=== PATIENT | female | born 1975 | race Caucasian/White ===

== ENCOUNTER 2020-04-30 11:58 | Outpatient (REF) | payer MEDICARE, MEDICAID, SELFPAY ==
[2020-04-30 13:46] LABS: MANUAL DIFF FLAG NO
[2020-04-30 13:57] LABS: Basophils Percent Auto 0.4 % (0-2); Eosinophils Absolute Auto 0.4 X10*3/uL (0.0-0.4); Hematocrit 41.2 % (37-47); Hemoglobin 13.2 g/dl (12.0-16.0); Imm Gran Abs Auto 0.01 X10*3/uL (0.00-0.03); Imm Gran Pct Auto 0.2 % (0.0-0.4); Lymphocytes Absolute Auto 1.7 X10*3/uL (1.2-4.9); Lymphocytes Percent Auto 31.9 % (20-40); Mean Corpuscular Hemoglobin 30.1 pg (27.0-33.0); Mean Corpuscular Volume 93.8 fL (80-98); Mean Platelet Volume 10.4 fL (9.4-12.3); Monocytes Absolute Auto 0.4 X10*3/uL (0.1-1.2); Monocytes Percent Auto 6.8 % (2-11); Neutrophils Absolute Auto 2.8 X10*3/uL (2.0-8.3); Neutrophils Percent Auto 52.7 % (45-73); Platelet Count 185 X10*3/uL (160-400); Red Blood Count 4.39 X10*6/uL (4.20-5.50); Red Cell Distribution Width 13.9 % (11.0-16.0); White Blood Count 5.3 X10*3/uL (4.8-10.8)
[2020-04-30 14:18] LABS: Lithium 0.66 mmol/L (0.60-1.20)
[2020-04-30 14:24] LABS: Alanine Aminotransferase 12 U/L (0-31); Albumin Level 3.9 g/dL (3.5-5.0); Alkaline Phosphatase 40 U/L (39-117); Aspartate Amino Transferase 17 U/L (5-31); Blood Urea Nitrogen 8 mg/dL (9-16); Estimated Glomerular Filt Rate > 60; Glucose Random 60 mg/dL (60-115); Total Protein 6.3 g/dL (6.5-8.0)
[2020-04-30 14:29] LABS: Valproate 29.4 mcg/mL (50.0-100.0)
[2020-04-30 14:39] LABS: Anion Gap 10 (12-20); Bilirubin Total 0.2 mg/dL (0.0-1.0); Calcium 9.6 mg/dL (8.4-10.2); Carbon Dioxide 33 mmol/L (22-29); Chloride 102 mmol/L (96-108); Potassium 4.7 mmol/l (3.3-5.1); Sodium 140 mmol/L (135-145)
== END 2020-04-30 11:59 | disposition home or self-care (01) ==
LOC: HO.LAB 11:58
PROVIDERS: Visit Provider Psychiatry & Neurology Psychiatry
DX: F39 Unspecified mood [affective] disorder (principal)
CPT/HCPCS: 36415; 80053; 80164; 80178; 85025

== ENCOUNTER 2021-04-09 13:34 | Emergency (ER) | payer MEDICARE, SELFPAY ==
--- NOTE | ~2021-04-09 | XR_ITS ---
EXAMINATION: XR CHEST CLINICAL INFORMATION: Cough. Rule out pneumonia. COMPARISON: Previous chest x-ray August 2019 TECHNIQUE: Frontal view of the chest was obtained. FINDINGS: The cardiac and mediastinal contours are normal. The lungs are clear. There is no pleural effusion or pneumothorax. Bony structures are unremarkable. XR/XR chest 1V IMPRESSION: Unremarkable examination.
[2021-04-09 13:39] VITALS: BP 113/58; PULSE 70; RESP 16; TEMP 36.7; O2SAT 97; BMI 23.7
--- NOTE | 2021-04-09 14:33 | ED_ITS ---
HPI - SOB/Dyspnea General Chief Complaint: Dyspnea Stated Complaint: cough, wheezing hx of asthma Time Seen by Provider: 04/09/21 14:18 Source: patient Mode of arrival: ambulatory Limitations: no limitations History of Present Illness HPI Narrative: 46-year-old female with a past medical history of asthma, COPD, tobacco smoking here with complaints of cough, wheezing for 1 week. Patient tells me she has a productive cough with green sputum. She has a history of bronchitis and states this feels similar. She tells me normally antibiotics and prednisone improve her symptoms. [place] did [place] and lost her nebulizer machine is also requesting a refill for this. No fevers, chills, shortness of breath or chest pain Related Data Previous Rx's Medication Instructions Recorded albuterol sulfate 2.5 mg INHALATION QID PRN #75 ml 04/09/21 azithromycin 250 mg tablet See Rx Instructions .ROUTE 04/09/21 .COMPLEX #6 tab nebulizer and compressor (PureAir #1 ea 04/09/21 Mini Nebulizer) prednisone 20 mg tablet 40 mg PO DAILY #10 tab 04/09/21 Allergies Allergy/AdvReac Type Severity Reaction Status Date / Time amoxicillin [AMOXICILLIN] Allergy Intermediate RASH Unverified 03/29/20 19:17 Penicillins [PENICILLINS] Allergy Intermediate RASH Unverified 03/29/20 19:17 Narcotics AdvReac Unknown Uncoded 02/09/20 00:00 Review of Systems Review of Systems: Yes all other systems are reviewed and are negative Constitutional: Constitutional: Reports no additional constitutional complaints, Denies body ache(s), Denies chills, Denies fever(s), Denies headache(s) and Denies weakness Eyes: Eyes: Reports no additional eye complaints and Denies change in vision ENT: Reports system reviewed and no additional complaints, except as documented, Denies dizziness, Denies headache(s), Denies nasal congestion, Denies nasal discharge and Denies neck pain Cardiovascular: Cardiovascular: Reports no additional cardiovascular complaints, Denies chest pain, Denies leg edema and Denies dyspnea Respiratory: Respiratory: Reports no additional respiratory complaints, Reports cough, Denies dyspnea and Reports wheezing Gastrointestinal: Gastrointestinal: Reports no additional gastrointestinal complaints, Denies abdominal pain, Denies diarrhea, Denies nausea and Denies vomiting Genitourinary: Genitourinary: Reports no additional female genitourinary complaints and Denies urinary incontinence Musculoskeletal: Musculoskeletal: Reports no additional musculoskeletal complaints, Denies back pain, Denies arthralgias, Denies joint swelling, Denies neck pain, Denies numbness and Denies tingling Integumentary/Breasts: Skin/Breast: Reports system reviewed and no additional complaints, except as docu and Denies rash Neurologic: Reports system reviewed and no additional complaints, except as documented, Denies Abnormal speech present, Denies dizziness, Denies headache(s), Denies numbness, Denies tingling and Denies weakness Allergic/Immunologic: Allergic/Immunologic: Reports wheezing PMFSH Past Medical History Attestation statement: The following information was validated with the patient. Source: old records reviewed and nursing notes reviewed Medical History Asthma COPD (chronic obstructive pulmonary disease) Social History Social History Advance Directives: No Advance Directives Information Provided: Yes Patient : No Physical Exam Vital Signs: Vital Signs: Last Vital Signs Temp 98.0 F 04/09/21 13:39 Pulse 70 04/09/21 13:39 Resp 16 04/09/21 13:39 BP 113/58 L 04/09/21 13:39 Pulse Ox 97 04/09/21 13:39 Body Mass Index 23.7 Const: General: cooperative, healthy appearing, comfortable and no acute distress Orientation/consciousness: patient oriented x3 Limitations: no limitations HENMT: Head: Yes normal to inspection Ears: hearing grossly normal bilaterally General nose exam: Normal external nose present Face and sinus: Yes normal facial exam Mouth: Normal oral and palatal mucosa present Throat: Yes posterior oropharynx normal Eyes: General: appearance normal, both eyes and all related structures Pupils: Equal, round and reactive pupils present Neck: Neck: Yes normal visual inspection Chest: Chest palpation & inspection: normal inspection of the chest Resp: Other: Mild expiratory wheezing throughout Effort & Inspection: normal respiratory effort Cardio: Rate: regular rate Rhythm: regular rhythm Peripheral pulses: Peripheral pulses 2+ throughout GI: Inspection: Yes normal to inspection Palpation (GI): Soft to palpation and nontender Auscultation: normal bowel sounds Back/Spine/Pelvis: Thoracic/Lumbar Spine: thoracic and lumbar spine normal to inspection Skin: General skin exam: no rashes or lesions noted Neuro: General: patient oriented x3, no focal motor deficits and normal sensation to monofilament Cranial nerves: Yes Equal, round and reactive pupils present Cognition (Neuro): normal cognition Speech: No Abnormal speech present Gait exam (Neuro): Normal gait present Motor exam (neuro): 5/5 motor strength present throughout Extrem: General: Yes normal to inspection Course Course Course Narrative: URI symptoms for 1 week. Feels similar to previous episodes of bronchitis. Chest x-ray shows no evidence of pneumonia. COVID screen negative. Speaking full sentences with stable saturations. Will discharge home with prednisone burst and Z-Mike. Reviewed worrisome signs and symptoms of when to return to the emergency department. Comfortable discharge home. MDM - SOB/Dyspnea Medical Records Attestation: I reviewed the patient's medical records. Lab Data Attestation: I reviewed the patient's lab results. Labs: Lab Results 04/09/21 Range/Units 14:35 COVID-19 ([facility]) Negative (Negative) COVID-19 Clin Com See Note Imaging Data Chest x-ray: Attestation: I personally reviewed and interpreted this imaging study as follows: Radiologist's impression: [address] [address] XRay Report Signed Patient: Ld Mosley MR#: [id number] : 1975 Acct:[id number] Age/Sex: 46 / F ADM Date: 04/09/21 Loc: .ED Attending Dr: Ordering Physician: Bea Garcia NP Date of Service: 04/09/21 Procedure(s): XR chest 1V Accession Number(s): [id number] cc: Bea Garcia NP~ EXAMINATION: XR CHEST CLINICAL INFORMATION: Cough. Rule out pneumonia. COMPARISON: Previous chest x-ray August 2019 TECHNIQUE: Frontal view of the chest was obtained. FINDINGS: The cardiac and mediastinal contours are normal. The lungs are clear. There is no pleural effusion or pneumothorax. Bony structures are unremarkable. XR/XR chest 1V IMPRESSION: Unremarkable examination. ? Discharge Plan Discharge Clinical Impression: Asthma with exacerbation, Bronchitis Patient Disposition: Home, Self-Care Instructions: Asthma (ED), Acute Bronchitis (ED) Additional Instructions: Covid test negative Prescriptions: New prednisone 20 mg tablet 40 mg PO DAILY Qty: 10 RF: 0 albuterol sulfate 2.5 mg /3 mL (0.083 %) solution for nebulization 2.5 mg inhalation QID PRN (Reason: shortness of breath or wheezing) Qty: 75 RF: 0 (DME) nebulizer and compressor [PureAir Mini Nebulizer] Device See Rx Instructions .Route Qty: 1 RF: 0 azithromycin 250 mg tablet See Rx Instructions .ROUTE .COMPLEX Qty: 6 RF: 0 Referrals: Physician,Unknown [Physician] - 2 days
[2021-04-09 14:56] LABS: COVID-19 Test Negative (Negative)
[2021-04-09 15:23] VITALS: PULSE 78; RESP 18; O2SAT 97
== END 2021-04-09 15:24 | disposition home or self-care (01) ==
LOC: HO.ED 14:49
PROVIDERS: Emergency Provider Emergency Medicine; PCP Nurse Practitioner Family
DX: J45.901 Unspecified asthma with (acute) exacerbation (principal); J44.1 Chronic obstructive pulmonary disease with (acute) exacerbation; R06.02 Shortness of breath; R05 Cough; Z79.899 Other long term (current) drug therapy; Z20.822 Contact with and (suspected) exposure to COVID-19
CPT/HCPCS: 36415; 71045; 87635; 99283; 99284

== ENCOUNTER 2021-04-29 14:07 | Outpatient (REF) | payer MEDICARE, SELFPAY ==
[2021-04-29 14:31] LABS: MANUAL DIFF FLAG NO
[2021-04-29 15:06] LABS: Basophils Percent Auto 0.5 % (0-2); Eosinophils Absolute Auto 0.3 X10*3/uL (0.0-0.4); Hematocrit 37.3 % (37-47); Hemoglobin 12.1 g/dl (12.0-16.0); Lymphocytes Absolute Auto 1.1 X10*3/uL (1.2-4.9); Lymphocytes Percent Auto 26.9 % (20-40); Mean Corpuscular HGB Conc 32.4 g/dl (31.0-35.0); Mean Corpuscular Hemoglobin 29.9 pg (27.0-33.0); Mean Corpuscular Volume 92.1 fL (80-98); Mean Platelet Volume 10.5 fL (9.4-12.3); Monocytes Absolute Auto 0.3 X10*3/uL (0.1-1.2); Monocytes Percent Auto 8.2 % (2-11); Neutrophils Absolute Auto 2.4 X10*3/uL (2.0-8.3); Neutrophils Percent Auto 57.4 % (45-73); Platelet Count 183 X10*3/uL (160-400); Red Blood Count 4.05 X10*6/uL (4.20-5.50); Red Cell Distribution Width 15.6 % (11.0-16.0); White Blood Count 4.2 X10*3/uL (4.8-10.8)
[2021-04-29 15:27] LABS: Lithium 0.62 mmol/L (0.60-1.20)
[2021-04-29 15:34] LABS: Alanine Aminotransferase 31 U/L (0-31); Albumin Level 3.8 g/dL (3.5-5.0); Alkaline Phosphatase 46 U/L (39-117); Anion Gap 9 (12-20); Aspartate Amino Transferase 28 U/L (5-31); Bilirubin Total 0.4 mg/dL (0.0-1.0); Blood Urea Nitrogen 15 mg/dL (9-16); Calcium 9.7 mg/dL (8.4-10.2); Carbon Dioxide 30 mmol/L (22-29); Chloride 106 mmol/L (96-108); Estimated Glomerular Filt Rate > 60; Glucose Random 112 mg/dL (60-115); Potassium 4.6 mmol/L (3.3-5.1); Sodium 140 mmol/L (135-145); Total Protein 5.7 g/dL (6.5-8.0)
[2021-04-29 15:42] LABS: Valproate 33.8 mcg/mL (50.0-100.0)
== END 2021-04-29 14:08 | disposition home or self-care (01) ==
LOC: HO.LAB 14:07
PROVIDERS: Visit Provider Psychiatry & Neurology Psychiatry
DX: F39 Unspecified mood [affective] disorder (principal); Z79.899 Other long term (current) drug therapy
CPT/HCPCS: 36415; 80053; 80164; 80178; 85025

== ENCOUNTER 2021-08-05 15:22 | Outpatient (REF) | payer OTHER, SELFPAY ==
[2021-08-05 15:47] LABS: Ammonia 41 umol/L (13-55)
[2021-08-05 16:02] LABS: Alanine Aminotransferase 16 U/L (0-31); Albumin Level 3.6 g/dL (3.5-5.0); Alkaline Phosphatase 46 U/L (39-117); Aspartate Amino Transferase 18 U/L (5-31); Bilirubin Direct 0.2 mg/dL (0.0-0.5); Bilirubin Total 0.5 mg/dL (0.0-1.0)
[2021-08-05 16:12] LABS: Valproate 59.8 mcg/mL (50.0-100.0)
== END 2021-08-05 15:23 | disposition home or self-care (01) ==
LOC: HO.LAB 15:22
PROVIDERS: Visit Provider Psychiatry & Neurology Neurology
DX: G40.909 Epilepsy, unspecified, not intractable, without status epilepticus (principal); G93.41 Metabolic encephalopathy; Z79.899 Other long term (current) drug therapy
CPT/HCPCS: 36415; 80076; 80164; 82140

== ENCOUNTER 2021-08-30 15:20 | Emergency (ER) | payer OTHER, SELFPAY ==
--- NOTE | ~2021-08-30 | XR_ITS ---
EXAMINATION: XR RIBS, BILATERAL CLINICAL INFORMATION: Rib pain COMPARISON: 04/09/2021 TECHNIQUE: 3 views of the bilateral ribs were obtained. FINDINGS: There is a nondisplaced left posterolateral eighth rib fracture. No additional fractures are seen. The lungs are well expanded. No consolidation, edema, or effusion. No pneumothorax. The cardiomediastinal silhouette is normal in size. XR/XR ribs BI min 4V w CXR1V IMPRESSION: Nondisplaced left posterolateral eighth rib fracture.
[2021-08-30 15:48] VITALS: BP 119/63; BP 124/75; PULSE 80; PULSE 85; RESP 17; TEMP 36.6; O2SAT 98; BMI 17.6
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
== END 2021-08-30 17:05 | disposition home or self-care (01) ==
PROVIDERS: Emergency Provider Emergency Medicine
DX: S22.32XA Fracture of one rib, left side, initial encounter for closed fracture (principal); Y04.2XXA Assault by strike against or bumped into by another person, initial encounter; Y93.9 Activity, unspecified; Y92.410 Unspecified street and highway as the place of occurrence of the external cause; Y99.9 Unspecified external cause status
CPT/HCPCS: 71111; 99283

== ENCOUNTER 2021-10-09 10:59 | Outpatient (REF) | payer OTHER, SELFPAY ==
[2021-10-09 11:18] LABS: MANUAL DIFF FLAG NO
[2021-10-09 12:14] LABS: Basophils Percent Auto 0.4 % (0-2); Eosinophils Absolute Auto 0.2 X10*3/uL (0.0-0.4); Eosinophils Percent Auto 2.7 % (0-4); Hematocrit 40.9 % (37.0-47.0); Imm Gran Abs Auto 0.02 X10*3/uL (0.00-0.03); Imm Gran Pct Auto 0.4 % (0.0-0.4); Lymphocytes Absolute Auto 1.4 X10*3/uL (1.2-4.9); Mean Corpuscular HGB Conc 31.8 g/dl (31.0-35.0); Mean Corpuscular Hemoglobin 29.4 pg (27.0-33.0); Mean Corpuscular Volume 92.5 fL (80.0-98.0); Mean Platelet Volume 10.3 fL (9.4-12.3); Monocytes Absolute Auto 0.4 X10*3/uL (0.1-1.2); Monocytes Percent Auto 6.6 % (2-11); Neutrophils Absolute Auto 3.7 x10*3/uL (2.0-8.3); Neutrophils Percent Auto 65.9 % (45-73); Platelet Count 207 X10*3/uL (160-400); Red Blood Count 4.42 X10*6/uL (4.20-5.50); Red Cell Distribution Width 14.2 % (11.0-16.0); White Blood Count 5.6 X10*3/uL (4.8-10.8)
[2021-10-09 12:27] LABS: Estimated Average Glucose 91 mg/dL; Hemoglobin A1c % 4.8 %
[2021-10-09 13:00] LABS: Alanine Aminotransferase 10 U/L (0-31); Alkaline Phosphatase 53 U/L (39-117); Anion Gap 8 (12-20); Aspartate Amino Transferase 14 U/L (5-31); Bilirubin Total 0.3 mg/dL (0.0-1.0); Blood Urea Nitrogen 14 mg/dL (9-16); Calcium 9.9 mg/dL (8.4-10.2); Carbon Dioxide 32 mmol/L (22-29); Chloride 102 mmol/L (96-108); Estimated Glomerular Filt Rate > 60; Glucose Random 69 mg/dL (60-115); Sodium 137 mmol/L (135-145); Total Protein 6.5 g/dL (6.5-8.0)
[2021-10-09 13:21] LABS: Free T4 (Free Thyroxine) 0.81 ng/dL (0.71-1.85); Vitamin D 25-OH Total 29.5 ng/mL (>30)
[2021-10-10 08:52] LABS: Triiodothyronine T3 Free 3.3 pg/mL (2.3-4.2)
== END 2021-10-09 11:00 | disposition home or self-care (01) ==
LOC: HO.LAB 10:59
PROVIDERS: PCP Nurse Practitioner Family; Visit Provider Nurse Practitioner Family
DX: R63.4 Abnormal weight loss (principal); E55.9 Vitamin D deficiency, unspecified
CPT/HCPCS: 36415; 80053; 82306; 83036; 84439; 84443; 84481; 85025

== ENCOUNTER 2022-05-27 04:00 | Emergency (ER) | payer OTHER, SELFPAY ==
--- NOTE | ~2022-05-27 | XR_ITS ---
EXAMINATION: XR CHEST, 2 VIEWS CLINICAL INFORMATION: worried she has broken ribs/collar bone, SOB COMPARISON: 08/30/2021 TECHNIQUE: PA and lateral views of the chest were obtained. FINDINGS: There is a subtle oblique lucency in the right distal clavicle which is new as greater prior and could correspond to a nondisplaced fracture. Clavicles are otherwise unremarkable. No rib fractures are identified on these images. Sternum appears intact. There is mild degenerative disc disease in the thoracic spine. Patchy areas of airspace disease in the left and right lower lobes may correspond to atelectasis, contusion, or pneumonia. Aspiration is also possible. No pleural effusion. No pneumothorax. Cardiac and mediastinal contours are normal. Pulmonary vasculature is unremarkable. XR/XR chest 2V IMPRESSION: 1. Patchy airspace disease in the left and right lower lobes may correspond to atelectasis, contusion, pneumonia, or aspiration. 2. Subtle oblique lucency in the right distal clavicle which may correspond to a nondisplaced fracture. Consider dedicated shoulder radiographs. No rib fractures are identified.
[2022-05-27 04:12] VITALS: BP 110/68; PULSE 78; RESP 19; TEMP 36.6; O2SAT 94; BMI 19.5
[2022-05-27 05:20] VITALS: BP 98/57; PULSE 95; RESP 25; TEMP 36.6; O2SAT 95
--- NOTE | 2022-05-27 05:35 | PC.NURSE ---
Pt made aware that urine sample is needed. Pt stated She is hungry and cannot urinate until she gets food . Pt made aware to at least try. Antione Murrieta made aware
[2022-05-27 06:23] LABS: Influenza A PCR NEGATIVE (Negative); Influenza B PCR NEGATIVE (Negative); Resp Syncy Virus RNA Qual PCR NEGATIVE (Negative); SARS COV2 PCR INHOUSE NEGATIVE (Negative)
--- NOTE | 2022-05-27 06:39 | ED_ITS ---
HPI - URI/Sore Throat General Chief Complaint: Upper Respiratory Symptoms Stated Complaint: covid + Time Seen by Provider: 05/27/22 06:31 History of Present Illness HPI Narrative: Patient is a 47-year-old female presents today with coughing congestion upper respiratory symptoms that is been ongoing for the last 3 weeks. Patient claims she tested positive for COVID 2 weeks ago patient claims she is vaccinated. Positive history of asthma. Never been hospitalized. In addition patient has been snorting cocaine and heroin. She wants help. She denies suicidal homicidal ideations. Related Data Previous Rx's Medication Instructions Recorded albuterol sulfate 2.5 mg/3 mL 2.5 mg (3 mL) inhalation QID PRN 04/09/21 (0.083 %) solution for nebulization shortness of breath or wheezing #75 mL azithromycin 250 mg tablet See Rx Instructions PO .COMPLEX #6 04/09/21 tabs nebulizer and compressor (PureAir #1 ea 04/09/21 Mini Nebulizer) prednisone 20 mg tablet 40 mg PO DAILY #10 tabs 04/09/21 azithromycin 250 mg tablet See Rx Instructions PO .COMPLEX 05/27/22 upper resp infection #6 tabs Allergies Allergy/AdvReac Type Severity Reaction Status Date / Time amoxicillin [AMOXICILLIN] Allergy Intermediate RASH Unverified 03/29/20 19:17 Penicillins [PENICILLINS] Allergy Intermediate RASH Unverified 03/29/20 19:17 Narcotics AdvReac Unknown Uncoded 02/09/20 00:00 Review of Systems Review of Systems: Positive coughing congestion upper respiratory symptoms positive generalized malaise Yes all other systems are reviewed and are negative PMFSH Past Medical History Attestation statement: The following information was validated with the patient. Medical History Asthma COPD (chronic obstructive pulmonary disease) Narcotic abuse Seizures Social History Social History Alcohol intake: unknown Smoked in Last 30 Days: Yes Use of substances other than those prescribed or required for medical reasons: Yes Substance Use Type: Crack/Cocaine and Marijuana Advance Directives: No Advance Directives Information Provided: Yes Physical Exam Vital Signs: Vital Signs: Last Vital Signs Temp 97.9 F 05/27/22 05:20 Pulse 95 05/27/22 05:20 Resp 25 H 05/27/22 05:20 BP 98/57 L 05/27/22 05:20 Pulse Ox 95 05/27/22 05:20 O2 Del Method 05/27/22 05:20 BMI result Body Mass Index 19.5 Appearance: Alert. Oriented X3. No acute distress. Eyes: Pupils equal, round and reactive to light. ENT: Pharynx normal. Neck: Normal inspection. Neck supple. No lymph nodes noted. No crepitus CVS: Normal heart rate and rhythm. Pulses normal. Normal S1 and S2 Respiratory: No respiratory distress. Breath sounds normal. No Wheezing. No rales Abdomen: Soft and nontender. No rigidity. No distention. good BS x4 Skin: Skin warm and dry. Normal skin color. Normal skin turgor. Extremities: No lower extremity edema. Neurovascular intact to all extremities. No Lacerations. No Rash Neuro: Oriented X 3. No motor deficit. No sensory deficit. Moving all extermities. No slurred speech MDM - URI/Sore Throat MDM Narrative Medical decision making narrative: Patient's O2 sat 95% on room air lungs are clear. Positive COVID test was 2 and half weeks ago. Patient's chest x-ray showed question right lower lobe infiltrate. Consider doxy but worry about sun exposure worry about compliance. Elected to go with azithromycin. 500 mg was given. Will give 4 more days of the azithromycin. Follow-up needed. In stable condition. Will wait social work to help place patient into detox. In stable condition. Differential Diagnosis Differential diagnosis: Likely upper respiratory infection and bronchitis Medical Records Attestation: I reviewed the patient's medical records. Lab Data Attestation: I reviewed the patient's lab results. Labs: Lab Results 05/27/22 Range/Units 05:31 Influenza Type A (PCR) NEGATIVE (Negative) Influenza Type B (PCR) NEGATIVE (Negative) RSV RNA Qual (PCR) NEGATIVE (Negative) SARS-CoV-2 RNA (RT-PCR) NEGATIVE (Negative) Discharge Plan Discharge Clinical Impression: Pneumonia Patient Disposition: Home, Self-Care Instructions: Community Acquired Pneumonia (ED) Prescriptions: New azithromycin 250 mg tablet See Rx Instructions .ROUTE .COMPLEX Qty: 6 0RF Rx Instructions: take 500 mg today (day 1), then 250 mg for 4 days (days 2-5) No Action prednisone 20 mg tablet 40 mg PO DAILY Qty: 10 0RF albuterol sulfate 2.5 mg /3 mL (0.083 %) solution for nebulization 2.5 mg inhalation QID PRN (Reason: shortness of breath or wheezing) Qty: 75 0RF (DME) nebulizer and compressor [PureAir Mini Nebulizer] Device See Rx Instructions .Route Qty: 1 0RF Rx Instructions: As directed azithromycin 250 mg tablet See Rx Instructions .ROUTE .COMPLEX Qty: 6 0RF Rx Instructions: take 500 mg today (day 1), then 250 mg for 4 days (days 2-5) Referrals: Physician,Unknown J [Primary Care Provider] - 06/03/22 (A possible infiltrate was noted in the right lower lung. Please follow-up. Repeat x-ray for resol ution needed.)
[2022-05-27] MEDS: Azithromycin 500 MG TABLET PO (07:01)
[2022-05-27 07:16] LABS: Appearance Urine Clear; Color Urine Yellow; Glucose Urine UA Negative (Negative); Leukocyte Esterase Urine Small (1+) (Negative); Nitrite Urine Negative (Negative); PH 5.5 (5.0-9.0); Specific Gravity - Urine 1.025 (1.005-1.025); UMIC TRIGGER UACC YES; Urine Blood Negative (Negative); Urine Ketones Negative (Negative); Urine Protein Trace mg/dL (Neg-Trace)
[2022-05-27 07:21] LABS: Bacteria Urine None Seen (None Seen); RBC Urine 0-2 /HPF (0-2); Squamous Epithelial Cell Urine 0-2 /HPF (0-2); UACC Culture Trigger YES
[2022-05-27 07:25] LABS: Opiate Screen Urine POSITIVE (Not Detect)
--- NOTE | 2022-05-27 08:18 | MHC.CM.ED ---
Received case management consult from Dr West. Patient is requesting detox. Care team consult already made. Case management consult not needed at this time.
[2022-05-27 08:31] VITALS: BP 95/53; PULSE 82; RESP 14; TEMP 37; O2SAT 95
--- NOTE | 2022-05-27 09:41 | MHC.RECOVRN ---
Met with pt in ED13 to discuss substance use and desire for ATS. Pt reports having been on methadone in [place], 120 mg x 2 years. Pt reports having COVID which caused pt to miss/stop going to the [facility]. Reports last dose was approx 2 weeks ago. Pt returned to use and has been using heroin, [place], 1.5 bundles daily as well as cocaine, 1 gram, [place], daily. Pt is interested in ATS. T/w will send referrals.
[2022-05-27 10:56] VITALS: BP 103/59; PULSE 59; RESP 14; TEMP 36.7; O2SAT 94
--- NOTE | 2022-05-27 11:35 | MHC.RECOVRN ---
Pt c/o withdrawal symptoms including body aches, chills, restlessness. Discussed with provider and Tania Tompkins APRN. Pt to receive 20 mg methadone to address withdrawal symptoms. Pt completed phone intake with [facility] and accepted for admission at 1 pm. Shruti Shields, pt will be transported by mother. RN aware.
[2022-05-27] MEDS: methADONE HCl 20 MG/2 ML ORAL.CONC PO (11:47)
== END 2022-05-27 12:01 | disposition home or self-care (01) ==
PROVIDERS: Emergency Provider Emergency Medicine Emergency Medical Services
DX: U07.1 COVID-19 (principal); J18.9 Pneumonia, unspecified organism; R05.9 Cough, unspecified; F14.10 Cocaine abuse, uncomplicated; Z79.899 Other long term (current) drug therapy
CPT/HCPCS: 0241U; 71046; 80307; 81001; 87086; 99284

== ENCOUNTER 2022-06-17 16:02 | Emergency (ER) | payer OTHER, SELFPAY ==
--- NOTE | ~2022-06-17 | XR_ITS ---
EXAMINATION: XR RIBS, LEFT CLINICAL INFORMATION: Status post fall. COMPARISON: Chest radiograph 05/27/2022. TECHNIQUE: 3 views of the left ribs were obtained. FINDINGS: Lungs are clear. No consolidation, pneumothorax, or pleural effusion. The cardiomediastinal silhouette and pulmonary vasculature are normal. Nondisplaced rib fractures of the left seventh through ninth ribs. Suspect additional nondisplaced fracture on the right third, fourth and fifth ribs. XR/XR ribs LT min 3V w CXR1V IMPRESSION: 1. Multiple bilateral rib fractures. 2. No acute cardiopulmonary findings. 3. No pneumothorax.
--- NOTE | ~2022-06-17 | CT_ITS ---
EXAMINATION: CT CHEST WITHOUT CONTRAST CLINICAL INFORMATION: Bilateral rib fractures. Fall. Seizure. COMPARISON: Rib series radiographs 06/17/2022. TECHNIQUE: Multidetector volumetric CT imaging of the chest was done. Axial MIP volume rendering provided. Sagittal and coronal reformatted images were obtained. This CT examination was performed using dose optimization techniques as appropriate, variously including the following: *Automated exposure control *Adjustment of mA and/or kV according to patient size (this includes techniques or standardized protocols for targeted exams where dose is matched to indication/reason for exam; i.e. extremities or head) *Use of iterative reconstruction technique DLP: 1234 mGy-cm FINDINGS: LUNGS: Mild centrilobular emphysema. Mild bibasilar peribronchial wall thickening and fine pulmonary reticular opacities. Findings are suspicious for mild chronic aspiration pneumonitis. MEDIASTINUM: No lymphadenopathy. Normal caliber of the thoracic aorta. Normal heart size. No gross pericardial thickening or fluid collections. CORONARY ARTERY CALCIFICATION: No coronary artery calcific atherosclerotic plaques. PLEURA: There is no pleural effusion. No pleural mass or thickening. AXILLA: No lymphadenopathy. UPPER ABDOMEN: Cholecystectomy clips noted. OSSEOUS STRUCTURES: Rib fractures with callus formation are noted in association with the lateral segments of the right third, fourth and fifth ribs. No acute appearing, displaced rib fractures are noted. Motion artifact results in mild suboptimal visualization of the ribs. No thoracic vertebral body compression deformities identified. Making allowances for motion artifact, the sternum appears intact. Chronic posterior manic deformities of the left seventh and eighth ribs. CT/CT chest wo IV con IMPRESSION: 1. No acute abnormalities identified. 2. Mild centrilobular emphysema. 3. Mild bibasilar peribronchial wall thickening and fine pulmonary reticular opacities suspicious for mild chronic aspiration pneumonitis. 4. Subacute healing fractures of the lateral segments of the right third, fourth and fifth ribs. 5. Chronic posttraumatic deformities of the left seventh and eighth ribs.
--- NOTE | ~2022-06-17 | CT_ITS ---
EXAMINATION: CT CERVICAL SPINE WITHOUT CONTRAST; UNENHANCED CT OF THE HEAD. CLINICAL INFORMATION: Fall. Seizure. COMPARISON: MRI brain 09/08/2019. CT head 09/02/2019. TECHNIQUE: Routine unenhanced CT of the head with multiple coronal and sagittal reformatted images; routine unenhanced CT of the cervical spine with multiple coronal and sagittal reformatted images. This CT examination was performed using dose optimization techniques as appropriate, variously including the following: *Automated exposure control *Adjustment of mA and/or kV according to patient size (this includes techniques or standardized protocols for targeted exams where dose is matched to indication/reason for exam; i.e. extremities or head) *Use of iterative reconstruction technique DLP: 1234 mGy-cm FINDINGS: Mild diffuse commensurate prominence of ventricles and sulci within expected limits of normal anatomic variation is noted. No intrarenal hemorrhage, tumors or acute infarcts visualized. No focal parenchymal lesions of the brain identified. The orbits and globes are normal in appearance. No significant opacification of the visualized paranasal sinuses, mastoid air cells and middle ear cavities. CT cervical spine: Images are suboptimal secondary to motion artifact. Making allowances for motion artifact, no fractures or acute appearing subluxations are identified. The visualized lung apices are clear. Mild multilevel anterior endplate osteophytosis. No prevertebral fluid collections or soft tissue inflammatory changes. CT/CT cervical spine wo IV con IMPRESSION: CT HEAD: No acute abnormalities. CT CERVICAL SPINE: Suboptimal evaluation secondary to motion artifact. Making allowances for limitations, no acute abnormalities identified.
--- NOTE | ~2022-06-17 | CT_ITS ---
EXAMINATION: CT CERVICAL SPINE WITHOUT CONTRAST; UNENHANCED CT OF THE HEAD. CLINICAL INFORMATION: Fall. Seizure. COMPARISON: MRI brain 09/08/2019. CT head 09/02/2019. TECHNIQUE: Routine unenhanced CT of the head with multiple coronal and sagittal reformatted images; routine unenhanced CT of the cervical spine with multiple coronal and sagittal reformatted images. This CT examination was performed using dose optimization techniques as appropriate, variously including the following: *Automated exposure control *Adjustment of mA and/or kV according to patient size (this includes techniques or standardized protocols for targeted exams where dose is matched to indication/reason for exam; i.e. extremities or head) *Use of iterative reconstruction technique DLP: 1234 mGy-cm FINDINGS: Mild diffuse commensurate prominence of ventricles and sulci within expected limits of normal anatomic variation is noted. No intrarenal hemorrhage, tumors or acute infarcts visualized. No focal parenchymal lesions of the brain identified. The orbits and globes are normal in appearance. No significant opacification of the visualized paranasal sinuses, mastoid air cells and middle ear cavities. CT cervical spine: Images are suboptimal secondary to motion artifact. Making allowances for motion artifact, no fractures or acute appearing subluxations are identified. The visualized lung apices are clear. Mild multilevel anterior endplate osteophytosis. No prevertebral fluid collections or soft tissue inflammatory changes. CT/CT head/brain wo IV con IMPRESSION: CT HEAD: No acute abnormalities. CT CERVICAL SPINE: Suboptimal evaluation secondary to motion artifact. Making allowances for limitations, no acute abnormalities identified.
[2022-06-17 17:01] VITALS: BP 108/49; PULSE 99; RESP 18; TEMP 36.6; O2SAT 99; BMI 18.1
--- NOTE | 2022-06-17 17:05 | ED.GENADULT ---
HPI - General Adult General Chief complaint: Seizure <Jennifer Banks MD - Last Filed: 06/17/22 17:09> Stated complaint: Psych eval/Seizure <Jennifer Banks MD - Last Filed: 06/17/22 17:09> Time Seen by Provider: 06/17/22 17:36 <Jennifer Banks MD - Last Filed: 06/17/22 17:09> Source: patient <Vicente Gonzales MD - Last Filed: 06/18/22 02:09> Mode of arrival: EMS <Vicente Gonzales MD - Last Filed: 06/18/22 02:09> Limitations: no limitations <Vicente Gonzales MD - Last Filed: 06/18/22 02:09> History of Present Illness HPI narrative: Patient 47 years old history of substance abuse uses cocaine mostly last use was 3 days ago 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 Seizure today fell now complaining of pain in the left rib patient says whenever she gets anxiety she gets seizures no tongue bite requesting to go to detox again last use of cocaine was 3 days ago <Vicente Gonzales MD - Last Filed: 06/18/22 02:09> Related Data Home medications: Previous Rx's Medication Instructions Recorded albuterol sulfate 2.5 mg/3 mL 2.5 mg (3 mL) inhalation QID PRN 04/09/21 (0.083 %) solution for nebulization shortness of breath or wheezing #75 mL azithromycin 250 mg tablet See Rx Instructions PO .COMPLEX #6 04/09/21 tabs nebulizer and compressor (PureAir #1 ea 04/09/21 Mini Nebulizer) prednisone 20 mg tablet 40 mg PO DAILY #10 tabs 04/09/21 azithromycin 250 mg tablet See Rx Instructions PO .COMPLEX 05/27/22 upper resp infection #6 tabs azithromycin 250 mg tablet See Rx Instructions PO .COMPLEX 05/27/22 upper resp infection #6 tabs <Jennifer Banks MD - Last Filed: 06/17/22 17:09> Allergies/adverse reactions: Allergies Allergy/AdvReac Type Severity Reaction Status Date / Time amoxicillin [AMOXICILLIN] Allergy Intermediate RASH Unverified 03/29/20 19:17 Penicillins [PENICILLINS] Allergy Intermediate RASH Unverified 03/29/20 19:17 Narcotics AdvReac Unknown Uncoded 02/09/20 00:00 <Jennifer Banks MD - Last Filed: 06/17/22 17:09> Review of Systems Review of Systems: Yes all other systems are reviewed and are negative <Vicente Gonzales MD - Last Filed: 06/18/22 02:09> [facility] Past Medical History Medical History: Medical History Asthma COPD (chronic obstructive pulmonary disease) Narcotic abuse Seizures <Jennifer Banks MD - Last Filed: 06/17/22 17:09> Social History Social History: Social History Alcohol intake: unknown Use of substances other than those prescribed or required for medical reasons: Yes Substance Use Type: Crack/Cocaine and Opiates Substance Use Frequency: Chronic Longstanding Advance Directives: No Advance Directives Information Provided: No <Jennifer Banks MD - Last Filed: 06/17/22 17:09> Physical Exam ED Vital Signs: Vital Signs - 24 hr 06/17/22 17:01 06/17/22 19:14 06/17/22 21:18 Temperature 98 F 99.0 F Pulse Rate 99 96 82 Respiratory Rate 18 14 12 Blood Pressure 108/49 L 101/47 L Pulse Oximetry 99 99 96 Oxygen Delivery Method Room Air Room Air Room Air 06/17/22 23:50 06/18/22 00:47 06/18/22 01:06 Temperature Pulse Rate 96 98 89 Respiratory Rate 19 19 17 Blood Pressure 112/78 Pulse Oximetry 97 99 97 Oxygen Delivery Method Room Air Room Air Room Air 06/18/22 01:56 06/18/22 02:15 06/18/22 06:16 Temperature Pulse Rate 77 74 71 Respiratory Rate 18 20 20 Blood Pressure 97/56 L 96/59 L 99/60 Pulse Oximetry 98 98 100 Oxygen Delivery Method Room Air Room Air Room Air 06/18/22 05:16 06/18/22 07:15 06/18/22 10:21 Temperature 98.4 F 98.8 F Pulse Rate 74 79 79 Respiratory Rate 14 12 Blood Pressure 101/63 115/52 L 104/71 Pulse Oximetry 100 100 98 Oxygen Delivery Method Room Air Room Air Room Air BMI result Body Mass Index 18.1 <Jennifer Banks MD - Last Filed: 06/17/22 17:09> Vital Signs - 24 hr 06/17/22 17:01 06/17/22 19:14 06/17/22 21:18 Temperature 98 F 99.0 F Pulse Rate 99 96 82 Respiratory Rate 18 14 12 Blood Pressure 108/49 L 101/47 L Pulse Oximetry 99 99 96 Oxygen Delivery Method Room Air Room Air Room Air 06/17/22 23:50 06/18/22 00:47 06/18/22 01:06 Temperature Pulse Rate 96 98 89 Respiratory Rate 19 19 17 Blood Pressure 112/78 Pulse Oximetry 97 99 97 Oxygen Delivery Method Room Air Room Air Room Air 06/18/22 01:56 06/18/22 02:15 06/18/22 06:16 Temperature Pulse Rate 77 74 71 Respiratory Rate 18 20 20 Blood Pressure 97/56 L 96/59 L 99/60 Pulse Oximetry 98 98 100 Oxygen Delivery Method Room Air Room Air Room Air 06/18/22 05:16 06/18/22 07:15 06/18/22 10:21 Temperature 98.4 F 98.8 F Pulse Rate 74 79 79 Respiratory Rate 14 12 Blood Pressure 101/63 115/52 L 104/71 Pulse Oximetry 100 100 98 Oxygen Delivery Method Room Air Room Air Room Air BMI result Body Mass Index 18.1 <Vicente Gonzales MD - Last Filed: 06/18/22 02:09> Vital Signs - 24 hr 06/17/22 17:01 06/17/22 19:14 06/17/22 21:18 Temperature 98 F 99.0 F Pulse Rate 99 96 82 Respiratory Rate 18 14 12 Blood Pressure 108/49 L 101/47 L Pulse Oximetry 99 99 96 Oxygen Delivery Method Room Air Room Air Room Air 06/17/22 23:50 06/18/22 00:47 06/18/22 01:06 Temperature Pulse Rate 96 98 89 Respiratory Rate 19 19 17 Blood Pressure 112/78 Pulse Oximetry 97 99 97 Oxygen Delivery Method Room Air Room Air Room Air 06/18/22 01:56 06/18/22 02:15 06/18/22 06:16 Temperature Pulse Rate 77 74 71 Respiratory Rate 18 20 20 Blood Pressure 97/56 L 96/59 L 99/60 Pulse Oximetry 98 98 100 Oxygen Delivery Method Room Air Room Air Room Air 06/18/22 05:16 06/18/22 07:15 06/18/22 10:21 Temperature 98.4 F 98.8 F Pulse Rate 74 79 79 Respiratory Rate 14 12 Blood Pressure 101/63 115/52 L 104/71 Pulse Oximetry 100 100 98 Oxygen Delivery Method Room Air Room Air Room Air BMI result Body Mass Index 18.1 <LANIE Augustin - Last Filed: 06/18/22 10:37> Appearance: Alert. Oriented X3. No acute distress. Eyes: PERRLA, No Nystagmus HEENT: Pharynx normal. Oral Mucosa moist no tongue bite atraumatic normocephalic Neck: Normal inspection. Neck supple. CVS: Normal heart rate and rhythm. Pulses normal. Respiratory: No respiratory distress. Equal air entry bilateral, no wheezing/rales/rhonchi diffuse tenderness bilateral ribs no crepitus Abdomen: Soft and nontender. Bowel sounds are present, no mass palpable, no CVA tenderness Skin: Skin warm and dry. Normal skin color. Normal skin turgor. Extremities: No lower extremity edema. No calf tenderness Neuro: Oriented X 3. No motor deficit. No sensory deficit.No cerebellar signs , cranial nerves II-XII intact <Vicente Gonzales MD - Last Filed: 06/18/22 02:09> Course Course Course Narrative: 47F recent detox center, wants detox but had seizure today in the morning that pt reports was witnessed. VS Reviewed GEN: NAD EARS: wnl THROAT: wnl LUNGS: CTAB CVS: RRR ABD: NT/ND <Jennifer Banks MD - Last Filed: 06/17/22 17:09> Reevaluation(s) Reevaluation #1: Patient following sleep while to talking to detox saturating 95% at room air but in deep sleep patient was given 4 mg intranasal Narcan patient became agitated was walking had a bowel movement on the hallway very agitated and opiate withdrawal will give patient Haldol and Ativan <Vicente Gonzales MD - Last Filed: 06/18/22 02:09> Time: 21:50 <Vicente Gonzales MD - Last Filed: 06/18/22 02:09> Reevaluation #2: Patient sleeping now with waking up in between vitals are stable will wait until patient gets sober in a.m. for detox placement patient parents have Section 35 otherwise <Vicente Gonzales MD - Last Filed: 06/18/22 02:09> Time: 00:05 <Vicente Gonzales MD - Last Filed: 06/18/22 02:09> Reevaluation #3: 1030am 06/18/2022: Patient's family has obtained a section 35. Police department is here to collect the patient and transfer her to a detox facility. Patient is cleared for discharge. <LANIE Augustin - Last Filed: 06/18/22 10:37> Medications Administered Discontinued Medications Generic Name Dose Route Start Last Admin Trade Name Freq PRN Reason Stop Dose Admin Diphenhydramine HCl 50 mg 06/17/22 23:50 06/17/22 23:55 Diphenhydramine Hcl 50 Mg/Ml Vial IM 06/17/22 23:51 50 mg ONCE ONE Administration Divalproex Sodium 1,000 mg 06/17/22 20:15 06/17/22 20:23 Divalproex Sodium 500 Mg Tablet.Dr PO 06/17/22 20:16 1,000 mg ONCE ONE Administration Haloperidol Lactate 5 mg 06/17/22 21:53 06/17/22 21:57 Haloperidol Lactate 5 Mg/Ml Vial IM 06/17/22 21:54 5 mg ONCE ONE Administration Lorazepam 2 mg 06/17/22 21:50 06/17/22 21:57 Lorazepam 2 Mg/Ml Vial IM 06/17/22 21:51 2 mg STAT STA Administration Naloxone HCl 4 mg 06/17/22 21:10 06/17/22 21:18 Naloxone Hcl Nasal 4 Mg [place] NOSTRILALT 06/17/22 21:11 4 mg ONCE ONE Administration <Jennifer Banks MD - Last Filed: 06/17/22 17:09> Medications Administered Discontinued Medications Generic Name Dose Route Start Last Admin Trade Name Freq PRN Reason Stop Dose Admin Diphenhydramine HCl 50 mg 06/17/22 23:50 06/17/22 23:55 Diphenhydramine Hcl 50 Mg/Ml Vial IM 06/17/22 23:51 50 mg ONCE ONE Administration Divalproex Sodium 1,000 mg 06/17/22 20:15 06/17/22 20:23 Divalproex Sodium 500 Mg Tablet. PO 06/17/22 20:16 1,000 mg ONCE ONE Administration Haloperidol Lactate 5 mg 06/17/22 21:53 06/17/22 21:57 Haloperidol Lactate 5 Mg/Ml Vial IM 06/17/22 21:54 5 mg ONCE ONE Administration Lorazepam 2 mg 06/17/22 21:50 06/17/22 21:57 Lorazepam 2 Mg/Ml Vial IM 06/17/22 21:51 2 mg STAT STA Administration Naloxone HCl 4 mg 06/17/22 21:10 06/17/22 21:18 Naloxone Hcl Nasal 4 Mg [place] NOSTRILALT 06/17/22 21:11 4 mg ONCE ONE Administration <Vicente Gonzales MD - Last Filed: 06/18/22 02:09> Medications Administered Discontinued Medications Generic Name Dose Route Start Last Admin Trade Name Job PRN Reason Stop Dose Admin Diphenhydramine HCl 50 mg 06/17/22 23:50 06/17/22 23:55 Diphenhydramine Hcl 50 Mg/Ml Vial IM 06/17/22 23:51 50 mg ONCE ONE Administration Divalproex Sodium 1,000 mg 06/17/22 20:15 06/17/22 20:23 Divalproex Sodium 500 Mg Tablet. PO 06/17/22 20:16 1,000 mg ONCE ONE Administration Haloperidol Lactate 5 mg 06/17/22 21:53 06/17/22 21:57 Haloperidol Lactate 5 Mg/Ml Vial IM 06/17/22 21:54 5 mg ONCE ONE Administration Lorazepam 2 mg 06/17/22 21:50 06/17/22 21:57 Lorazepam 2 Mg/Ml Vial IM 06/17/22 21:51 2 mg STAT STA Administration Naloxone HCl 4 mg 06/17/22 21:10 06/17/22 21:18 Naloxone Hcl Nasal 4 Mg [place] NOSTRILALT 06/17/22 21:11 4 mg ONCE ONE Administration <LANIE Augustin - Last Filed: 06/18/22 10:37> Medical Decision Making Medical Decision Making MDM Narrative: Patient with polysubstance abuse had a unwitnessed seizure? s/p fall chest x-ray showed bilateral nondisplaced rib fractures without any lung contusion. Will get head CT chest CT C-spine CT chest to rule out internal injuries no signs of injury superficially 2 am : Preliminary CT scan of the head C-spine negative for acute CT chest without any pleural effusion spleen normal in contour multiple nondisplaced rib fractures <Vicente Gonzales MD - Last Filed: 06/18/22 02:09> Differential Diagnoses: Differential diagnosis (Polysubstance abuse, seizure disorder, fall) Differential Diagnosis: The differential diagnosis associated with the patient?s presentation includes: <Vicente Gonzales MD - Last Filed: 06/18/22 02:09> Discharge Plan Discharge Clinical Impression: Polysubstance abuse, Psychiatric pseudoseizure, Fracture of multiple ribs of both sides <Jennifer Banks MD - Last Filed: 06/17/22 17:09> Patient Disposition: Xfer Other <Jennifer Banks MD - Last Filed: 06/17/22 17:09> Transfer Details: sent with PD on a section 35 to treatment facility <Jennifer Banks MD - Last Filed: 06/17/22 17:09> sent with PD on a section 35 to treatment facility <Vicente Gonzales MD - Last Filed: 06/18/22 02:09> sent with PD on a section 35 to treatment facility <LANIE Augustin - Last Filed: 06/18/22 10:37> Instructions: Polysubstance Abuse (ED) <Jennifer Banks MD - Last Filed: 06/17/22 17:09> Additional Instructions: Follow up with your primary care provider. Return to the emergency department immediately if your symptoms worsen or if you develop any dizziness, shortness of breath, difficulty breathing, chest pain, blurry vision, loss of vision, nausea, vomiting, abdominal pain, fever, chills, back pain, or any other complaints. <Jennifer Banks MD - Last Filed: 06/17/22 17:09> Prescriptions: No Action azithromycin 250 mg tablet See Rx Instructions .ROUTE .COMPLEX Qty: 6 0RF Rx Instructions: take 500 mg today (day 1), then 250 mg for 4 days (days 2-5) azithromycin 250 mg tablet See Rx Instructions .ROUTE .COMPLEX Qty: 6 0RF Rx Instructions: take 500 mg today (day 1), then 250 mg for 4 days (days 2-5) prednisone 20 mg tablet 40 mg PO DAILY Qty: 10 0RF albuterol sulfate 2.5 mg /3 mL (0.083 %) solution for nebulization 2.5 mg inhalation QID PRN (Reason: shortness of breath or wheezing) Qty: 75 0RF (DME) nebulizer and compressor [PureAir Mini Nebulizer] Device See Rx Instructions .Route Qty: 1 0RF Rx Instructions: As directed azithromycin 250 mg tablet See Rx Instructions .ROUTE .COMPLEX Qty: 6 0RF Rx Instructions: take 500 mg today (day 1), then 250 mg for 4 days (days 2-5) <Jennifer Banks MD - Last Filed: 06/17/22 17:09> Print Language: Vietnamese <Jennifer Banks MD - Last Filed: 06/17/22 17:09>
--- NOTE | 2022-06-17 18:07 | PC.NURSE ---
contacted care team for legal recovery specialist as pt is interested in detox
[2022-06-17 18:17] LABS: Appearance Urine Clear; Color Urine Dark Yellow; Glucose Urine UA Negative (Negative); Leukocyte Esterase Urine Trace (Negative); Nitrite Urine Negative (Negative); PH 5.5 (5.0-9.0); Specific Gravity - Urine >= 1.030 (1.005-1.025); UMIC TRIGGER UACC YES; Urine Blood Negative (Negative); Urine Ketones Trace mg/dL (Negative); Urine Protein 30 (1+) mg/dL (Neg-Trace)
[2022-06-17 18:18] LABS: UPreg QC Valid YES; Urine Pregnancy NEGATIVE (NEGATIVE)
[2022-06-17 18:26] LABS: Amphetamine Screen Urine Not Detected (Not Detect); Barbiturates, Urine Not Detected (Not Detect); Benzodiazepines Screen Urine Not Detected (Not Detect); Cannabinoid Screen Urine Not Detected (Not Detect); Cocaine Screen Urine POSITIVE (Not Detect); Fentanyl, urine POSITIVE (Not Detect); Opiate Screen Urine POSITIVE (Not Detect); Phencyclidine Screen Urine Not Detected (Not Detect)
[2022-06-17 18:43] LABS: MANUAL DIFF FLAG NO
--- NOTE | 2022-06-17 18:47 | MHC.CARE ---
Pt presented to the ED seeking detox. CARE team communicated with pt's mother in the ED. Pt's mother reported that she petitioned for a section 35 commitment today and there is an active warrant. Discussed that PD would not pick pt up on the warrant until the morning and that we cannot hold the pt in the ED if she requests to be discharged, as she is here voluntarily. track and field coach has started working with pt and has been in contact with [facility] re: bed availability.
[2022-06-17 18:51] LABS: Basophils Percent Auto 0.3 % (0-2); Eosinophils Percent Auto 1.1 % (0-4); Hematocrit 33.5 % (37.0-47.0); Hemoglobin 11.1 g/dl (12.0-16.0); Imm Gran Abs Auto 0.01 X10*3/uL (0.00-0.03); Imm Gran Pct Auto 0.3 % (0.0-0.4); Lymphocytes Absolute Auto 1.2 X10*3/uL (1.2-4.9); Lymphocytes Percent Auto 33.2 % (20-40); Mean Corpuscular HGB Conc 33.1 g/dl (31.0-35.0); Mean Corpuscular Hemoglobin 27.8 pg (27.0-33.0); Mean Platelet Volume 9.7 fL (9.4-12.3); Monocytes Absolute Auto 0.3 X10*3/uL (0.1-1.2); Monocytes Percent Auto 9.3 % (2-11); Neutrophils Absolute Auto 2.1 x10*3/uL (2.0-8.3); Neutrophils Percent Auto 55.8 % (45-73); Platelet Count 177 X10*3/uL (160-400); Red Blood Count 3.99 X10*6/uL (4.20-5.50); Red Cell Distribution Width 13.6 % (11.0-16.0); White Blood Count 3.7 X10*3/uL (4.8-10.8)
[2022-06-17 18:59] LABS: Bacteria Urine None Seen (None Seen); Hyaline Casts Urine 0-2 /LPF (0-2); RBC Urine 0-2 /HPF (0-2); WBC Urine 0-5 /HPF (0-5)
[2022-06-17 19:08] LABS: Alanine Aminotransferase 25 U/L (0-31); Albumin Level 3.5 g/dL (3.5-5.0); Alkaline Phosphatase 66 U/L (39-117); Anion Gap 10 (12-20); Aspartate Amino Transferase 20 U/L (5-31); Blood Urea Nitrogen 19 mg/dL (9-16); Calcium 9.1 mg/dL (8.4-10.2); Carbon Dioxide 31 mmol/L (22-29); Chloride 104 mmol/L (96-108); Creatinine Clr Calc Pharmacy 95.2; Estimated Glomerular Filt Rate > 60; Ethanol < 10 mg/dL; Glucose Random 144 mg/dL (60-115); Potassium 3.6 mmol/L (3.3-5.1); Sodium 141 mmol/L (135-145); Total Protein 5.5 g/dL (6.5-8.0)
[2022-06-17 19:12] LABS: IDNOW Serial# 9DB6401D; Influenza A Negative (Negative); Influenza B2 Negative (Negative)
[2022-06-17 19:14] VITALS: BP 101/47; PULSE 96; RESP 14; TEMP 37.2; O2SAT 99
[2022-06-17 19:40] LABS: Bilirubin Total 0.5 mg/dL (0.0-1.0)
--- NOTE | 2022-06-17 19:47 | PC.NURSE ---
Care of patient assumed at 1900. She is found resting in stretcher with eyes closed. She awakens for vitals and appears [id number] of drugs/restless/unkempt. She admits to cocaine use today. She is provided with ramon megan, sandwich, and crackers for snacking. Seizure pads are on the stretcher. Patient disheveled and disorganized, but able to follow simple commands. She states she's interested in detox. Mother is bedside and supportive. Call richey within reach. Continuous pulse oximetery initiated.
[2022-06-17 19:57] LABS: Valproate < 2.0 mcg/mL (50.0-100.0)
[2022-06-17] MEDS: Divalproex Sodium 500 MG TABLET.DR 1000 MG PO (20:23)
--- NOTE | 2022-06-17 21:15 | MHC.RECOVSUP ---
? Reason for consult:BOTH o? Current location:ED08? o? Identified substance use concern:? -? Seeking ATS (detox) -? Support ? Intervention: o? ATS bed search started/completed/in process ? Plan: o? Bed search in progress to o? Follow up tomorrow? ? Additional information:RC met with pt,pt stated she was interested in going to detox, RC found pt a bed at [facility], pt was too sleepy to complete the phone screen so the woman informed me at this time she can't complete the process.
[2022-06-17 21:18] VITALS: PULSE 82; RESP 12; O2SAT 96
[2022-06-17] MEDS: Naloxone HCl Nasal 4 MG SPRAY NOSTRILALT (21:18)
--- NOTE | 2022-06-17 21:19 | PC.NURSE ---
patient somnolent with slow, shallow respirations. she is unable to stay awake for detox intake. narcan intranasal given per MD rojas
[2022-06-17] MEDS: Haloperidol Lactate 5 MG/ML VIAL IM (21:57)
[2022-06-17] MEDS: LORazepam 2 MG/ML VIAL IM (21:57)
--- NOTE | 2022-06-17 21:58 | PC.NURSE ---
patient gets out of bed and poops in another patient's room on the floor. security and md bedside.
--- NOTE | 2022-06-17 22:20 | PC.NURSE ---
patient cleansed of copious green loose stool. all bed linens changed and fresh blankets applied. mother remains bedside, supportive. patient now resting.
[2022-06-17 23:50] VITALS: BP 112/78; PULSE 96; RESP 19; O2SAT 97
--- NOTE | 2022-06-17 23:51 | PC.NURSE ---
patient continues to be restless,trying to climb out of bed. she is confused, disoriented. MD rojas bedside with this RN. vitals as documented, stable.
[2022-06-17] MEDS: diphenhydrAMINE HCL 50 MG/ML VIAL IM (23:55)
[2022-06-18] VITALS (8 sets, daily range): BP systolic 96–115; BP diastolic 52–71; PULSE 71–98; RESP 12–20; TEMP 36.9–37.1; O2SAT 97–100
--- NOTE | 2022-06-18 01:40 | PC.NURSE ---
xray results discussed with MD Velasco. will plan for additional imaging.
--- NOTE | 2022-06-18 09:27 | PC.NURSE ---
[employer] at bedside for section 35, due to pt condition stating they will return later. Recovery team in with patient at this time, pt awake and making phone calls.
--- NOTE | 2022-06-18 09:45 | PC.NURSE ---
[employer] called again for pickup
--- NOTE | 2022-06-18 10:46 | MHC.RECOVRN ---
Spoke with pt, attempted to complete phone intake with [facility]. Pt too drowsy. Active warrant for Sect 35, [employer] have been called.
== END 2022-06-18 10:43 ==
PROVIDERS: Student in an Organized Health Care Education/Training Program; Emergency Provider Internal Medicine
DX: S22.43XA Multiple fractures of ribs, bilateral, initial encounter for closed fracture (principal); G40.89 Other seizures; F14.10 Cocaine abuse, uncomplicated; F41.1 Generalized anxiety disorder; F43.0 Acute stress reaction; M54.50 Low back pain, unspecified; M54.2 Cervicalgia; R51.9 Headache, unspecified; R07.89 Other chest pain; X58.XXXA Exposure to other specified factors, initial encounter; Y93.9 Activity, unspecified; Y92.9 Unspecified place or not applicable; Y99.9 Unspecified external cause status; Z20.822 Contact with and (suspected) exposure to COVID-19; Z79.899 Other long term (current) drug therapy
CPT/HCPCS: 36415; 70450; 71101; 71250; 72125; 80053; 80164; 80307; 81001; 81025; 82077; 85025; 87502; 96372; 99284; J1200; J2060

== ENCOUNTER 2022-08-15 14:21 | Outpatient (REF) | payer OTHER, SELFPAY ==
[2022-08-15 14:55] LABS: Ammonia 57 umol/L (13-55)
[2022-08-15 15:24] LABS: Alanine Aminotransferase 13 U/L (0-31); Albumin Level 3.5 g/dL (3.5-5.0); Alkaline Phosphatase 64 U/L (39-117); Aspartate Amino Transferase 17 U/L (5-31); Bilirubin Direct < 0.2 mg/dL (0.0-0.5); Bilirubin Total 0.2 mg/dL (0.0-1.0); Total Protein 5.7 g/dL (6.5-8.0)
== END 2022-08-15 14:22 | disposition home or self-care (01) ==
LOC: HO.LAB 14:21
PROVIDERS: Visit Provider Psychiatry & Neurology Neurology
DX: G40.909 Epilepsy, unspecified, not intractable, without status epilepticus (principal)
CPT/HCPCS: 36415; 80076; 82140

== ENCOUNTER 2022-09-18 16:52 | Outpatient (REF) | payer OTHER, SELFPAY ==
--- NOTE | ~2022-09-18 | XR_ITS ---
EXAMINATION: XR CLAVICLE, RIGHT CLINICAL INFORMATION: Pain COMPARISON: None TECHNIQUE: 2 of the right clavicle. FINDINGS: The clavicle is intact. The bones and soft tissues are normal. No fracture. Acromioclavicular joint alignment is anatomic. XR/XR clavicle RT IMPRESSION: Normal right clavicle.
== END 2022-09-18 16:53 | disposition home or self-care (01) ==
LOC: HO.HOSX 16:52
PROVIDERS: Visit Provider Physician Assistant
DX: M25.511 Pain in right shoulder (principal); M89.8X1 Other specified disorders of bone, shoulder; Z79.899 Other long term (current) drug therapy; Z87.81 Personal history of (healed) traumatic fracture
CPT/HCPCS: 73000; 99202

== ENCOUNTER 2023-05-04 15:57 | Emergency (ER) | payer MEDICARE, MEDICAID, SELFPAY ==
--- NOTE | ~2023-05-04 | XR_ITS ---
EXAMINATION: XR KNEE LEFT XR KNEE RIGHT CLINICAL INFORMATION: Pain after fall COMPARISON: None TECHNIQUE: Right knee, 4 views Left knee, 4 views FINDINGS: Left knee: Bones have normal alignment. No evidence of acute fracture or subluxation. There appears to be a small knee joint effusion. Tricompartmental osteophyte formation is present. The joint degeneration is associated with moderate loss of medial tibiofemoral joint space. Right knee: Bones have normal alignment. No evidence of acute fracture or subluxation. The suprapatellar compartment of the knee joint is mildly distended (i.e., small joint effusion). There is moderate narrowing of medial tibiofemoral joint space. Small marginal osteophytes are present at the patella and tibiofemoral compartments. XR/XR knee RT 3V IMPRESSION: No acute fracture or malalignment at either knee. Tricompartmental osteoarthritis and small effusions of each knee. The joint degeneration is worst (moderate in degree) at the medial tibiofemoral compartment of each knee.
--- NOTE | ~2023-05-04 | XR_ITS ---
EXAMINATION: XR KNEE LEFT XR KNEE RIGHT CLINICAL INFORMATION: Pain after fall COMPARISON: None TECHNIQUE: Right knee, 4 views Left knee, 4 views FINDINGS: Left knee: Bones have normal alignment. No evidence of acute fracture or subluxation. There appears to be a small knee joint effusion. Tricompartmental osteophyte formation is present. The joint degeneration is associated with moderate loss of medial tibiofemoral joint space. Right knee: Bones have normal alignment. No evidence of acute fracture or subluxation. The suprapatellar compartment of the knee joint is mildly distended (i.e., small joint effusion). There is moderate narrowing of medial tibiofemoral joint space. Small marginal osteophytes are present at the patella and tibiofemoral compartments. XR/XR knee LT 3V IMPRESSION: No acute fracture or malalignment at either knee. Tricompartmental osteoarthritis and small effusions of each knee. The joint degeneration is worst (moderate in degree) at the medial tibiofemoral compartment of each knee.
--- NOTE | 2023-05-04 16:10 | ED_ITS ---
HPI - General Adult General Chief complaint: Psychiatric Symptoms Stated complaint: fell 05/04 left leg pain Source: patient Mode of arrival: ambulatory Limitations: no limitations History of Present Illness HPI narrative: Patient is a 48 year old assigned female at with a history of asthma presenting to the emergency department today with bilateral knee pain. Patient states that she fell today, landing on both knees, and now they hurt. Patient denies any head strike, loss of consciousness, dizziness, lightheadedness, abdominal pain, nausea, vomiting, fever, chills, blurry vision, double vision, loss of vision, chest pain, difficulty breathing, shortness of breath, back pain, night sweats, pain with urination, increased urinary frequency, increased urinary urgency, blood in [his/her/their] urine or stool, syncope or a near syncopal episode, recent trauma or falls, bowel incontinence, bladder incontinence, bowel retention, bladder retention, or any other complaints at this time. Onset (ago): hour(s) Location: left, right and lower extremity Radiation: non-radiation Severity: mild Severity scale (1-10): 3 Quality: aching and dull Pain Consistency: constant Relieving factors: none Exacerbating factors: none Associated symptoms: denies other symptoms Treatments prior to arrival: none Related Data Previous Rx's Medication Instructions Recorded albuterol sulfate 2.5 mg/3 mL 2.5 mg (3 mL) inhalation QID PRN 04/09/21 (0.083 %) solution for nebulization shortness of breath or wheezing #75 mL azithromycin 250 mg tablet See Rx Instructions PO .COMPLEX #6 04/09/21 tabs nebulizer and compressor (PureAir #1 ea 04/09/21 Mini Nebulizer) prednisone 20 mg tablet 40 mg (2 x 20 mg) PO DAILY #10 tabs 04/09/21 azithromycin 250 mg tablet See Rx Instructions PO .COMPLEX 05/27/22 upper resp infection #6 tabs azithromycin 250 mg tablet See Rx Instructions PO .COMPLEX 05/27/22 upper resp infection #6 tabs ibuprofen 800 mg tablet 800 mg PO TID PRN for pain #90 tabs 12/24/22 Allergies Allergy/AdvReac Type Severity Reaction Status Date / Time amoxicillin [AMOXICILLIN] Allergy Intermediate RASH Verified 09/18/22 14:52 Penicillins [PENICILLINS] Allergy Intermediate RASH Verified 09/18/22 14:52 Narcotics AdvReac Severe Itching Uncoded 09/18/22 14:52 Review of Systems Constitutional: Constitutional: Reports no additional constitutional complaints, Denies chills, Denies fever(s) and Denies night sweats Eyes: Eyes: Reports no additional eye complaints, Denies blurry vision, Denies change in vision, Denies diplopia, Denies eye discharge, Denies loss of vision and Denies eye pain ENT: Denies dizziness Cardiovascular: Cardiovascular: Reports no additional cardiovascular complaints, Denies chest pain, Denies lightheadedness, Denies Loss of Consciousness and Denies dyspnea Respiratory: Respiratory: Reports no additional respiratory complaints and Denies dyspnea Gastrointestinal: Gastrointestinal: Reports no additional gastrointestinal complaints, Denies abdominal pain, Denies melena, Denies hematochezia, Denies change in bowel habits and Denies change in stool character Genitourinary: Genitourinary: Denies hematuria, Denies urinary frequency, Denies dysuria, Denies urinary incontinence, Denies urinary hesitancy and Denies urinary urgency Musculoskeletal: Musculoskeletal: Reports no additional musculoskeletal complaints, Denies numbness and Denies tingling Comments: bilateral knee pain Neurologic: Denies dizziness, Denies loss of vision, Denies numbness and Denies tingling Psychiatric: Psychiatric: Reports no additional psychiatric complaints Endocrine: Endocrine: Reports no additional endocrine complaints Hematologic/Lymphatic: Hematologic/Lymphatic: Reports no additional hematologic/lymphatic complaints Allergic/Immunologic: Allergic/Immunologic: Reports no additional allergic/immunologic complaints PMFSH Past Medical History Attestation statement: The following information was validated with the patient. Source: old records reviewed and nursing notes reviewed Medical History Clavicle fracture Narcotic abuse Seizures Asthma COPD (chronic obstructive pulmonary disease) Social History Social History Alcohol intake: unknown Substance Use Type: Crack/Cocaine and Opiates Advance Directives: No Advance Directives Information Provided: No Physical Exam ED Vital Signs: Vital Signs - 24 hr 05/04/23 16:11 Temperature 97.7 F Pulse Rate 87 Respiratory Rate 20 Blood Pressure 125/75 Pulse Oximetry 96 Oxygen Delivery Method Room Air BMI result Body Mass Index 28.5 Const General: cooperative, no acute distress, alert and awake Nutritional Appearance: well nourished Orientation/consciousness: patient oriented x3 Limitations: no limitations HENMT Head: Yes normal to inspection and Yes atraumatic Ears: hearing grossly normal bilaterally and external ears normal General nose exam: Normal external nose present, no nasal discharge noted and no epistaxis Face and sinus: Yes normal facial exam, No abrasion and No laceration Mouth: Normal oral and palatal mucosa present, no drooling and no muffled voice Eyes General: appearance normal, both eyes and all related structures Periorbital: periorbital findings normal Eyelids: Yes eyelids normal Conjunctivae: conjunctivae normal Pupils: Equal, round and reactive pupils present EOM: EOMs intact bilaterally Neck Neck: Yes normal visual inspection, Yes full ROM and Yes no lymphadenopathy Chest Chest palpation & inspection: normal inspection of the chest Resp Effort & Inspection: normal respiratory effort and able to speak in complete sentences GI Inspection: Yes normal to inspection Neuro General: patient oriented x3 and moves all extremities Cranial nerves: Yes Equal, round and reactive pupils present Cognition (Neuro): normal cognition Motor exam (neuro): 5/5 motor strength present throughout Sensory Exam: Normal double simultaneous stimulation for sensation Coordination: [id number] test normal Extrem General: Yes normal to inspection, Yes full ROM and Yes capillary refill normal Psych Appearance: grossly normal Mental Status: mental status grossly normal Affect: normal affect Attitude: cooperative Thought process: Normal thought process present Thought content: Normal thought content present Insight: Good insight present (Psych) Course Course Course Narrative: RME performed by Angela John PA-C. Patient is a 48 year old assigned female at presenting to the emergency department with bilateral knee pain. Imaging ordered. Patient placed back in the waiting room pending room availability and results. Attempted to discharge the patient from [facility] when she informed me that she would now like to be evaluated by triage for depression and being overwhelmed with everything ? Patient placed back in the waiting room. Medical Decision Making Medical Decision Making MDM Narrative: Patient is a 48 year old assigned female at with a history of asthma presenting to the emergency department today with bilateral knee pain. Patient's physical exam was unremarkable. Patient's bilateral knee x-rays showed no acute process. I explained my physical exam findings as well as all test results to the patient. I answered all questions asked by the patient. Patient then informed me that she was feeling overwhelmed by everything and wanted to speak to crisis. Patient denied any suicidal or homicidal ideation. I ordered lab work and a CARE consult however, the patient left before completing treatment. Patient refused labs and left without being evaluated by the CARE team. Differential Diagnosis Differential Diagnoses: The differential diagnosis associated with the presentation includes Bilateral knee pain Knee sprain Knee strain Anxiety Independent Interpretation I performed an independent interpretation of an: Plain X-Ray Interpretation: My interpretation is in agreement with the radiologist's impression of these imaging studies. EXAMINATION: XR KNEE LEFT XR KNEE RIGHT CLINICAL INFORMATION: Pain after fall COMPARISON: None TECHNIQUE: Right knee, 4 views Left knee, 4 views FINDINGS: Left knee: Bones have normal alignment. No evidence of acute fracture or subluxation. There appears to be a small knee joint effusion. Tricompartmental osteophyte formation is present. The joint degeneration is associated with moderate loss of medial tibiofemoral joint space. Right knee: Bones have normal alignment. No evidence of acute fracture or subluxation. The suprapatellar compartment of the knee joint is mildly distended (i.e., small joint effusion). There is moderate narrowing of medial tibiofemoral joint space. Small marginal osteophytes are present at the patella and tibiofemoral compartments. XR/XR knee LT 3V IMPRESSION: No acute fracture or malalignment at either knee. Tricompartmental osteoarthritis and small effusions of each knee. The joint degeneration is worst (moderate in degree) at the medial tibiofemoral compartment of each knee. Dictated By: Tc Dunham MD Signed By: Electronically signed by Tc Dunham MD 05/04/23 8553 Radiology Impression Discussion of test interpretation with radiology: I have reviewed the radiologist's reading. Discharge Plan Discharge Clinical Impression: Acute knee pain Patient Disposition: Left W/O Completing Treatment Prescriptions: No Action ibuprofen 800 mg tablet 800 mg PO TID PRN (Reason: for pain) Qty: 90 0RF azithromycin 250 mg tablet See Rx Instructions .ROUTE .COMPLEX Qty: 6 0RF Rx Instructions: take 500 mg today (day 1), then 250 mg for 4 days (days 2-5) azithromycin 250 mg tablet See Rx Instructions .ROUTE .COMPLEX Qty: 6 0RF Rx Instructions: take 500 mg today (day 1), then 250 mg for 4 days (days 2-5) prednisone 20 mg tablet 40 mg PO DAILY Qty: 10 0RF albuterol sulfate 2.5 mg /3 mL (0.083 %) solution for nebulization 2.5 mg inhalation QID PRN (Reason: shortness of breath or wheezing) Qty: 75 0RF (DME) nebulizer and compressor [PureAir Mini Nebulizer] Device See Rx Instructions .Route Qty: 1 0RF Rx Instructions: As directed azithromycin 250 mg tablet See Rx Instructions .ROUTE .COMPLEX Qty: 6 0RF Rx Instructions: take 500 mg today (day 1), then 250 mg for 4 days (days 2-5) Interventions: [place]-Suicide Risk Severity Scale Last Done: 05/05/23 00:53 Discharge Date/Time: 05/05/23 00:55
[2023-05-04 16:11] VITALS: BP 125/75; PULSE 87; RESP 20; TEMP 36.5; O2SAT 96; BMI 28.5
--- NOTE | 2023-05-04 18:42 | PC.NURSE ---
PA called patient in for DC, patient then told staff she would like to be evaluated by crisis due to stress and depression. patient brought back to waiting room.
--- NOTE | 2023-05-04 18:57 | MHC.EDTECH ---
t/w called pt to triage for lab draw. pt refused and said i need to put my fucking feet up. I'm not doing bloodwork until I am in a fucking bed.
--- NOTE | 2023-05-04 22:33 | MHC.CARE ---
Mark Acharya- pt?s mother calls adocating for pt via VM. She reports pt is withdrawing from methadone and oxycodone, possiby under the influence of cocaine. Having knee surgery. [phone]. Care Team speaks with marshall Callaway RN who reports that she has spoken to mother regarding this and has discussed the plan.
--- NOTE | 2023-05-05 00:54 | PC.NURSE ---
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
== END 2023-05-05 00:55 | disposition left against medical advice (07) ==
LOC: HO.ED 05-05 00:51
PROVIDERS: Emergency Provider Emergency Medicine
DX: M25.562 Pain in left knee (principal); M25.561 Pain in right knee
CPT/HCPCS: 73562; 99283

== ENCOUNTER 2023-06-16 08:08 | Emergency (ER) | payer OTHER, SELFPAY ==
--- NOTE | ~2023-06-16 | XR_ITS ---
EXAMINATION: XR CHEST CLINICAL INFORMATION: Cough COMPARISON: 05/27/2022 TECHNIQUE: 2 views of the chest were obtained. FINDINGS: Heart, mediastinum, pulmonary vessels and lung lanier within normal limits. Mild pectus excavatum. XR/XR chest 2V IMPRESSION: No acute cardiopulmonary disease.
--- NOTE | ~2023-06-16 | CT_ITS ---
EXAMINATION: CT ANGIOGRAM OF THE CHEST WITH AND WITHOUT CONTRAST (CT PULMONARY ANGIOGRAM FOR PE) CLINICAL INFORMATION: Reason for Exam hypoxia, recent surgery COMPARISON: CT chest dated 06/18/2022 TECHNIQUE: Prior to contrast administration, noncontrast localization images were obtained. Subsequently, multidetector volumetric imaging was performed from the thoracic inlet to below the diaphragms following the administration of 80 mL Omnipaque 350 intravenous contrast. No contrast reaction reported Sagittal, coronal, and MIP oblique sagittal reformatted images were obtained on the CT workstation, uploaded to PACS, and reviewed. This CT examination was performed using dose optimization techniques as appropriate, variously including the following: *Automated exposure control *Adjustment of mA and/or kV according to patient size (this includes techniques or standardized protocols for targeted exams where dose is matched to indication/reason for exam; i.e. extremities or head) *Use of iterative reconstruction technique Total exam dose-length product 280 mGy-cm FINDINGS: QUALITY OF STUDY/CONTRAST BOLUS: Satisfactory. PULMONARY ARTERIES: No pulmonary emboli. THORACIC AORTA: No aneurysm. LUNG: No focal consolidation, nodules or masses. Mild emphysema. PLEURA: No pleural effusion or pneumothorax. MEDIASTINUM: Normal heart size. No pericardial effusion. No hilar or mediastinal lymphadenopathy. No evidence of septal bowing or right heart strain. CORONARY ARTERY CALCIFICATION: None visualized on this study. CHEST WALL/AXILLA: No axillary or internal mammary lymphadenopathy. OSSEOUS STRUCTURES: No acute or suspicious osseous abnormality. UPPER ABDOMEN: Unremarkable. CT/CT angio chest PE protocol IMPRESSION: * No pulmonary embolism. * No acute pulmonary parenchymal abnormalities. * Mild emphysema. VTE: negative.
[2023-06-16 08:34] VITALS: BP 107/41; PULSE 79; RESP 16; TEMP 36.4; O2SAT 96; BMI 27.8
[2023-06-16 11:21] VITALS: BP 96/56; PULSE 88; RESP 18; TEMP 37; O2SAT 92
--- NOTE | 2023-06-16 11:54 | ED_ITS ---
HPI - General Adult General Chief complaint: General Medical Stated complaint: Low blood pressure/Low o2 Time Seen by Provider: 06/16/23 10:45 Source: patient and RN notes reviewed Mode of arrival: ambulatory Limitations: no limitations History of Present Illness HPI narrative: This is a 48-year-old female presenting to the emergency department for evaluation of cough, congestion, intermittent shortness of breath, subjective fevers x 2 weeks. Patient reports that she had a arthrosclerosis surgery performed on her right leg 3 weeks ago. She states that a week afterwards she developed a productive cough, congestion, and has been coughing up black sputum. She called her vascular surgeon who is concern for blood clots. Patient denies any chest pain. She also has been monitoring her oxygen saturation which has been low which is a typical of her. She is a smoker, quit 2 months ago. No other complaints or concerns at this time. MD complaint: Cough, shortness of breath Onset (ago): week(s) Radiation: non-radiation Severity: moderate Quality: aching Pain Consistency: constant Relieving factors: none Exacerbating factors: none Associated symptoms: shortness of breath Treatments prior to arrival: none Related Data Previous Rx's Medication Instructions Recorded albuterol sulfate 2.5 mg/3 mL 2.5 mg (3 mL) inhalation QID PRN 04/09/21 (0.083 %) solution for nebulization shortness of breath or wheezing #75 mL azithromycin 250 mg tablet See Rx Instructions PO .COMPLEX #6 04/09/21 tabs nebulizer and compressor (PureAir #1 ea 04/09/21 Mini Nebulizer) prednisone 20 mg tablet 40 mg (2 x 20 mg) PO DAILY #10 tabs 04/09/21 azithromycin 250 mg tablet See Rx Instructions PO .COMPLEX 05/27/22 upper resp infection #6 tabs azithromycin 250 mg tablet See Rx Instructions PO .COMPLEX 05/27/22 upper resp infection #6 tabs ibuprofen 800 mg tablet 800 mg PO TID PRN for pain #90 tabs 12/24/22 azithromycin 250 mg tablet See Rx Instructions PO .COMPLEX #6 06/16/23 tabs Allergies Allergy/AdvReac Type Severity Reaction Status Date / Time amoxicillin [AMOXICILLIN] Allergy Intermediate RASH Verified 06/16/23 08:33 Penicillins [PENICILLINS] Allergy Intermediate RASH Verified 06/16/23 08:33 Narcotics AdvReac Severe Itching Uncoded 06/16/23 08:33 Review of Systems 2 Review of Systems: Yes all other systems are reviewed and are negative Constitutional: Constitutional: Reports as per [facility] Past Medical History Medical History Clavicle fracture Narcotic abuse Seizures Asthma COPD (chronic obstructive pulmonary disease) Social History Social History Alcohol intake: unknown Smoked in Last 30 Days: Yes Use of substances other than those prescribed or required for medical reasons: No Substance Use Type: Crack/Cocaine and Opiates Advance Directives: No Advance Directives Information Provided: Yes Patient : No Physical Exam ED Vital Signs: Vital Signs - 24 hr 06/16/23 08:34 06/16/23 11:21 Temperature 97.6 F 98.6 F Pulse Rate 79 88 Respiratory Rate 16 18 Blood Pressure 107/41 L 96/56 L Pulse Oximetry 96 92 Oxygen Delivery Method Room Air Room Air BMI result Body Mass Index 27.8 Const General: cooperative, comfortable and no acute distress Orientation/consciousness: patient oriented x3 Limitations: no limitations HENMT Head: Yes normal to inspection, Yes normocephalic and Yes atraumatic Ears: hearing grossly normal bilaterally General nose exam: Normal external nose present Face and sinus: Yes normal facial exam Mouth: Normal oral and palatal mucosa present, oropharynx normal and moist mucous membranes Throat: Yes posterior oropharynx normal Eyes General: appearance normal, both eyes and all related structures Eyelids: Yes eyelids normal Conjunctivae: conjunctivae normal Sclerae: sclerae normal Pupils: Equal, round and reactive pupils present EOM: EOMs intact bilaterally Neck Neck: Yes normal visual inspection, Yes full ROM and Yes no lymphadenopathy Lymphatic: no lymphadenopathy noted Chest Chest palpation & inspection: normal inspection of the chest Resp Effort & Inspection: normal respiratory effort and able to speak in complete sentences Auscultation: clear to auscultation bilaterally, no crackles, no rales, no rhonchi and no wheezes Cardio Rate: regular rate Rhythm: regular rhythm Heart sounds: S1 normal heart sound present and S2 normal heart sound present GI Inspection: Yes normal to inspection Skin General skin exam: no rashes or lesions noted Trauma: no lacerations or abrasions Wounds: no wounds Neuro General: patient oriented x3 and moves all extremities Cranial nerves: Yes Equal, round and reactive pupils present Extrem Other: No lower extremity swelling, no calf tenderness. Right upper arm, just inferior to the medial olecranon, there is a palpable soft nodule noted, no surrounding erythema or edema, mildly tender to palpation, [place]. General: Yes normal to inspection Right upper extremity: normal to inspection Left upper extremity: normal to inspection Right lower extremity: normal to inspection Left lower extremity: normal to inspection Course Reevaluation(s) Reevaluation #1: No leukocytosis, H&H around her baseline, platelet 130, similar to previous. BUN elevated at 20. ddimer elevated at 402, given elevation, CTA of the chest was ordered. Viral swabs negative. Chest x-ray unremarkable. Reevaluation #2: CTA still pending at this time. Time: 16:25 Reevaluation #3: CTA negative. Symptoms likely due to viral URI. Given symptoms have been ongoing for the last 2 weeks, will treat with azithromycin. Given return precautions. Patient understands and agrees with plan. Also given referral to dermatology due to question lipoma on the right arm. Patient understands and agrees with plan. Vital signs stable, no chest pain or current shortness of breath. Patient stable for discharge. Time: 17:03 Medications Administered Discontinued Medications Generic Name Dose Route Start Last Admin Trade Name Freq PRN Reason Stop Dose Admin Iohexol 100 ml 06/16/23 15:33 06/16/23 15:33 Iohexol 350 Mg/Ml 100 Ml Infus..Btl IV 06/16/23 15:34 65 ml ONCE ONE Administration Medical Decision Making Medical Decision Making [facility] Narrative: This is a 48-year-old female presenting to the emergency department for evaluation of ongoing cough, shortness of breath, intermittent fevers for the last 2 weeks. On arrival, blood pressure mildly hypotensive at 107/41, patient is nontoxic appearing, non hypoxic. Lungs clear to auscultation bilaterally. Patient reports that she recently had arthrosclerotic procedure performed on her right leg 3 weeks ago. She states that she called her vascular surgeon and was told to immediately report to the emergency room due to concerns for blood clots. Patient also reports that she has had a lump on her right arm, reports that she has had this for many years, reports that over last several weeks she has noticed increased in size. She reports this is mildly painful. Plan: Labs, viral swabs, chest x-ray, D-dimer Differential Diagnosis Differential Diagnoses: The differential diagnosis associated with the presentation includes Pneumonia, upper respiratory infection, pulmonary embolism, bronchitis Admission/Observation Consideration of admission/observation: Escalation of care including admission/observation considered Lab Data [facility] Lab Attestation statement: I reviewed the patient's lab results. See [facility] 06/16/23 12:11 06/16/23 12:11 Labs: Lab Results 06/16/23 Range/Units 12:11 WBC 3.8 L (4.8-10.8) X10*3/uL RBC 3.89 L (4.20-5.50) X10*6/uL Hgb 10.8 L (12.0-16.0) g/dl Hct 34.0 L (37.0-47.0) % MCV 87.4 (80.0-98.0) fL MCH 27.8 (27.0-33.0) pg MCHC 31.8 (31.0-35.0) g/dl RDW 14.0 (11.0-16.0) % Plt Count 130 L D (160-400) X10*3/uL MPV 9.9 (9.4-12.3) fL Immature Gran % (Auto) 0.3 (0.0-0.4) % Neut % (Auto) 54.0 (45-73) % Lymph % (Auto) 34.0 (20-40) % Early % (Auto) 9.0 (2-11) % Eos % (Auto) 2.4 (0-4) % Baso % (Auto) 0.3 (0-2) % Lymph # (Auto) 1.3 (1.2-4.9) X10*3/uL Early # (Auto) 0.3 (0.1-1.2) X10*3/uL Eos # (Auto) 0.1 (0.0-0.4) X10*3/uL Baso # (Auto) 0.0 (0.0-0.2) X10*3/uL Abs Immat Gran (auto) 0.01 (0.00-0.03) X10*3/uL Absolute Neuts (auto) 2.1 (2.0-8.3) x10*3/uL Absolute Nucleated RBC 0.000 (0.0-0.012) X10*3/uL Nucleated RBC % (auto) 0.0 (0.0-0.2) /100WBC PT 10.2 L (11.1-13.3) SEC INR 0.8 L (0.9-1.1) APTT 28.2 (26.0-36.4) SEC D-Dimer High Sensitivty 402 NG/ML Sodium 140 (135-145) mmol/L Potassium 4.8 D (3.3-5.1) mmol/L Chloride 104 (96-108) mmol/L Carbon Dioxide 29 (22-29) mmol/L Anion Gap 12 (12-20) BUN 20 H (9-16) mg/dL Creatinine 0.99 (0.5-1.4) mg/dL Estim Creat Clear Calc 88.9 Estimated GFR 60 Random Glucose 107 (60-115) mg/dL Calcium 9.2 (8.4-10.2) mg/dL Total Bilirubin 0.1 (0.0-1.0) mg/dL Direct Bilirubin < 0.2 (0.0-0.5) mg/dL AST 12 (5-31) U/L ALT 14 (0-31) U/L Alkaline Phosphatase 68 (39-117) U/L Total Protein 6.3 L (6.5-8.0) g/dL Albumin 3.6 (3.5-5.0) g/dL Influenza Type A (PCR) NEGATIVE (Negative) Influenza Type B (PCR) NEGATIVE (Negative) RSV RNA Qual (PCR) NEGATIVE (Negative) SARS-CoV-2 RNA (RT-PCR) NEGATIVE (Negative) Radiology Impression Discussion of test interpretation with radiology: I have reviewed the radiologist's reading. External Record Review External record reviewed: Inpatient record, Office record, Outpatient record, Prior outpatient labs, Prior outpatient radiology, Primary care record and Outside ED record Discharge Plan Discharge Clinical Impression: Acute upper respiratory infection, Subcutaneous mass of right upper extremity Patient Disposition: Home, Self-Care Instructions: Upper Respiratory Infection (ED) Additional Instructions: You tested negative for COVID, RSV, flu. Your lab work was reassuring. Your CT scan of your chest did not show a blood clot. Please take prescribed antibiotic as directed. Finish the entire course even if your feeling better. Drink plenty of fluids get plenty of rest. If any new or worsening symptoms occur including but not limited to fevers, chills, shortness breath, chest pain, please return for re-evaluation. Please follow-up with Dermatology regarding the lump on your right forearm. Prescriptions: New azithromycin 250 mg tablet See Rx Instructions PO .COMPLEX Qty: 6 0RF Rx Instructions: For 250 mg dose pack: take 500 mg today (day 1), then 250 mg for 4 days (days 2-5) No Action ibuprofen 800 mg tablet 800 mg PO TID PRN (Reason: for pain) Qty: 90 0RF azithromycin 250 mg tablet See Rx Instructions .ROUTE .COMPLEX Qty: 6 0RF Rx Instructions: take 500 mg today (day 1), then 250 mg for 4 days (days 2-5) azithromycin 250 mg tablet See Rx Instructions .ROUTE .COMPLEX Qty: 6 0RF Rx Instructions: take 500 mg today (day 1), then 250 mg for 4 days (days 2-5) prednisone 20 mg tablet 40 mg PO DAILY Qty: 10 0RF albuterol sulfate 2.5 mg /3 mL (0.083 %) solution for nebulization 2.5 mg inhalation QID PRN (Reason: shortness of breath or wheezing) Qty: 75 0RF (DME) nebulizer and compressor [PureAir Mini Nebulizer] Device See Rx Instructions .Route Qty: 1 0RF Rx Instructions: As directed azithromycin 250 mg tablet See Rx Instructions .ROUTE .COMPLEX Qty: 6 0RF Rx Instructions: take 500 mg today (day 1), then 250 mg for 4 days (days 2-5) Referrals: Miesha Cherry MD [Physician] -
[2023-06-16 12:16] LABS: MANUAL DIFF FLAG NO
[2023-06-16 12:17] LABS: Basophils Percent Auto 0.3 % (0-2); Eosinophils Absolute Auto 0.1 X10*3/uL (0.0-0.4); Eosinophils Percent Auto 2.4 % (0-4); Hemoglobin 10.8 g/dl (12.0-16.0); Imm Gran Abs Auto 0.01 X10*3/uL (0.00-0.03); Imm Gran Pct Auto 0.3 % (0.0-0.4); Lymphocytes Absolute Auto 1.3 X10*3/uL (1.2-4.9); Mean Corpuscular HGB Conc 31.8 g/dl (31.0-35.0); Mean Corpuscular Hemoglobin 27.8 pg (27.0-33.0); Mean Corpuscular Volume 87.4 fL (80.0-98.0); Mean Platelet Volume 9.9 fL (9.4-12.3); Monocytes Absolute Auto 0.3 X10*3/uL (0.1-1.2); Neutrophils Absolute Auto 2.1 x10*3/uL (2.0-8.3); Platelet Count 130 X10*3/uL (160-400); Red Blood Count 3.89 X10*6/uL (4.20-5.50); White Blood Count 3.8 X10*3/uL (4.8-10.8)
[2023-06-16 12:23] LABS: INTERNATIONAL NORM RATIO 0.8 (0.9-1.1); Prothrombin Time 10.2 SEC (11.1-13.3)
[2023-06-16 12:26] LABS: D Dimer High Sensitivity 402 NG/ML; Partial Thromboplastin Time 28.2 SEC (26.0-36.4)
[2023-06-16 12:32] LABS: Alanine Aminotransferase 14 U/L (0-31); Albumin Level 3.6 g/dL (3.5-5.0); Alkaline Phosphatase 68 U/L (39-117); Anion Gap 12 (12-20); Aspartate Amino Transferase 12 U/L (5-31); Bilirubin Direct < 0.2 mg/dL (0.0-0.5); Bilirubin Total 0.1 mg/dL (0.0-1.0); Blood Urea Nitrogen 20 mg/dL (9-16); Calcium 9.2 mg/dL (8.4-10.2); Carbon Dioxide 29 mmol/L (22-29); Chloride 104 mmol/L (96-108); Creatinine Clr Calc Pharmacy 88.9; Estimated Glomerular Filt Rate 60; Glucose Random 107 mg/dL (60-115); Potassium 4.8 mmol/L (3.3-5.1); Sodium 140 mmol/L (135-145); Total Protein 6.3 g/dL (6.5-8.0)
[2023-06-16 12:52] LABS: Influenza A PCR NEGATIVE (Negative); Influenza B PCR NEGATIVE (Negative); Resp Syncy Virus RNA Qual PCR NEGATIVE (Negative); SARS COV2 PCR INHOUSE NEGATIVE (Negative)
[2023-06-16] MEDS: iohexoL 350 MG/ML 100 ML INFUS..BTL IV (15:33)
[2023-06-16 17:19] VITALS: BP 104/60; PULSE 70; RESP 18; O2SAT 94
== END 2023-06-16 17:20 | disposition home or self-care (01) ==
PROVIDERS: Physician Assistant Medical; Emergency Provider Emergency Medicine Emergency Medical Services; PCP Internal Medicine
DX: J22 Unspecified acute lower respiratory infection (principal); R50.9 Fever, unspecified; R05.9 Cough, unspecified; R06.02 Shortness of breath; Z20.822 Contact with and (suspected) exposure to COVID-19; Z20.828 Contact with and (suspected) exposure to other viral communicable diseases; Z79.899 Other long term (current) drug therapy
CPT/HCPCS: 0241U; 71046; 71275; 80048; 80076; 85025; 85379; 85610; 85730; 99284; Q9967

== ENCOUNTER 2023-07-31 09:03 | Inpatient (IN) | payer OTHER, SELFPAY ==
--- NOTE | ~2023-07-31 | FL_ITS ---
EXAMINATION: XR FLUOROSCOPY WITH IMAGES CLINICAL INFORMATION: Ankle fusion COMPARISON: 07/31/2023 TECHNIQUE: Fluoroscopy Supervised By: Dr. Coy Vazquez. Fluoroscopy Time: 16.93 second. Cumulative Dose: 0.6069 mGy. DAP: 0.0367 Gycm2. Images: 5. FINDINGS: 5 images obtained during fusion of the lateral and medial malleoli by compression screw is medially and plate and screws laterally the plate is well positioned. Fragments of lateral and medial malleoli fracture are well FL/FL guidance in OR IMPRESSION: Hardware in place
--- NOTE | ~2023-07-31 | CT_ITS ---
EXAMINATION: CT cervical spine wo IV con, CT head/brain wo IV con INDICATION INFORMATION: Seizures COMPARISON: CT cervical spine and head from June 2022 TECHNIQUE: Separate noncontrast CT examinations of the head and cervical spine were performed. Coronal and sagittal reformats were obtained at the acquisition workstation. This CT examination was performed using dose optimization techniques as appropriate, variously including the following: * Automated exposure control * Adjustment of mA and/or kV according to patient size (this includes techniques or standardized protocols for targeted exams where dose is matched to indication/reason for exam; i.e. extremities or head) * Use of iterative reconstruction technique DLP: 1791.69 mGy-cm FINDINGS: HEAD: There is no evidence of acute intracranial hemorrhage or territorial infarction. Ramirez to white matter differentiation is well preserved. No abnormal mass effect or midline shift is seen. No extra-axial fluid collections are identified. No hydrocephalus. No significant volume loss. There is no abnormal attenuation within the brain parenchyma. The cerebellar tonsils are well positioned. No acute osseous or soft tissue abnormality. Visualized portions of the orbits are unremarkable. The mastoid air cells and visualized portions of the paranasal sinuses are well aerated. CERVICAL SPINE: No evidence of acute fracture or traumatic subluxation of the cervical spine. There is reversal of normal cervical curvature with otherwise maintained sagittal alignment. Vertebral body heights and intervertebral disc spaces are maintained. The atlantoaxial and atlantooccipital articulations are intact. No prevertebral soft tissue swelling. There is no cervical lymphadenopathy. The visualized thyroid gland revealed 0.6 cm nodule in the left thyroid lobe. The visualized lung apices are clear. CT/CT cervical spine wo IV con IMPRESSION: 1. No acute intracranial pathology. 2. No acute osseous abnormality within the cervical spine.
--- NOTE | ~2023-07-31 | XR_ITS ---
EXAMINATION: XR ANKLE CLINICAL INFORMATION: Left ankle and foot pain. COMPARISON: None. TECHNIQUE: AP, lateral, and mortise views of the left ankle were obtained. AP, lateral and oblique views of the left foot were obtained. FINDINGS: There is a possibly comminuted transverse fracture involving the medial malleolus. There is a displaced oblique fracture of the distal fibula at the level of the syndesmosis. There is marked lateral soft tissue swelling. There is widening of the lateral clear space. Minimal Achilles enthesopathy. There is normal alignment of the left foot. Possible avulsion injury of the medial navicular pain only on the AP projection of the left foot. XR/XR foot LT min 3V IMPRESSION: Displaced oblique fracture of the distal fibula at the level of the syndesmosis. Possibly comminuted transverse fracture involving the medial malleolus. Marked lateral soft tissue swelling.
--- NOTE | ~2023-07-31 | XR_ITS ---
EXAMINATION: XR ANKLE CLINICAL INFORMATION: Left ankle and foot pain. COMPARISON: None. TECHNIQUE: AP, lateral, and mortise views of the left ankle were obtained. AP, lateral and oblique views of the left foot were obtained. FINDINGS: There is a possibly comminuted transverse fracture involving the medial malleolus. There is a displaced oblique fracture of the distal fibula at the level of the syndesmosis. There is marked lateral soft tissue swelling. There is widening of the lateral clear space. Minimal Achilles enthesopathy. There is normal alignment of the left foot. Possible avulsion injury of the medial navicular pain only on the AP projection of the left foot. XR/XR ankle LT min 3V IMPRESSION: Displaced oblique fracture of the distal fibula at the level of the syndesmosis. Possibly comminuted transverse fracture involving the medial malleolus. Marked lateral soft tissue swelling.
--- NOTE | 2023-07-31 09:30 | ED_ITS ---
HPI - Seizure General Chief Complaint: Altered Mental Status Stated Complaint: FALL LAST NIGHT + LOC L ANKLE SWELLING Time Seen by Provider: 07/31/23 09:24 Source: patient, family (mother), EMS and RN notes reviewed Mode of arrival: EMS Limitations: no limitations History of Present Illness HPI Narrative: Patient is a 48-year-old female with history of seizures, substance use disorder presenting to the emergency department with report of seizure/fall last night with subsequent left ankle pain and swelling. Patient lives with her mother who states that patient's medications were recently changed. Around 3 weeks ago patient's lamictal was discontinued and Topamax was started. Mother states that around 9pm last night she heard a loud thud and found patient on the floor in the kitchen. Unknown headstrike unknown loss of consciousness, states patient was awake when she found the patient. Patient and mother both state that since that time patient has had at least 1 seizure daily. Patient also reports that she feels lethargic, is ?nodding off frequently. Mother states that she stopped giving patient the Topamax yesterday because it was the only thing that was new. Patient complaints of left ankle pain, swelling and ecchymosis related to the fall, also complains of headache. She denies neck or back pain. Denies blurred vision, double vision or other visual changes. Denies any chest pain, palpitations, shortness of breath. Denies abdominal pain, current nausea. Does report some episodes of vomiting over the past few weeks. Denies diarrhea or constipation. Mother states that given patient's history of substance use in the past, she did perform a home drug screen which was negative. Patient denies recent drug or alcohol use. Mother states patient is currently prescribed oxycodone for orthopedic issue. MD complaint: seizure and other Onset (ago): week(s) Witnessed: No Seizure History: Yes Place: Home Possible Precipitating Event: medication Associated symptoms: other Treatments prior to arrival: none Related Data Previous Rx's Medication Instructions Recorded albuterol sulfate 2.5 mg/3 mL 2.5 mg (3 mL) inhalation QID PRN 04/09/21 (0.083 %) solution for nebulization shortness of breath or wheezing #75 mL azithromycin 250 mg tablet See Rx Instructions PO .COMPLEX #6 04/09/21 tabs nebulizer and compressor (PureAir #1 ea 04/09/21 Mini Nebulizer) prednisone 20 mg tablet 40 mg (2 x 20 mg) PO DAILY #10 tabs 04/09/21 azithromycin 250 mg tablet See Rx Instructions PO .COMPLEX 05/27/22 upper resp infection #6 tabs azithromycin 250 mg tablet See Rx Instructions PO .COMPLEX 05/27/22 upper resp infection #6 tabs ibuprofen 800 mg tablet 800 mg PO TID PRN for pain #90 tabs 12/24/22 azithromycin 250 mg tablet See Rx Instructions PO .COMPLEX #6 06/16/23 tabs Allergies Allergy/AdvReac Type Severity Reaction Status Date / Time amoxicillin [AMOXICILLIN] Allergy Intermediate RASH Verified 07/31/23 09:33 Penicillins [PENICILLINS] Allergy Intermediate RASH Verified 07/31/23 09:33 Narcotics AdvReac Severe Itching Uncoded 06/16/23 08:33 Review of Systems 2 Review of Systems: As per HPI Yes all other systems are reviewed and are negative Constitutional: Constitutional: Reports as per HPI PMFSH Past Medical History Onset Date is defined in the Problem List Problems that require an onset date and time if occurred within 24 hrs of arrival to the ED Aortic Dissection and Rupture; Neurologic impairment; Cardiopulmonary Arrest; Endotracheal Intubation; Insertion or Replacement of Mechanical Circulatory Assist Device Medical History Clavicle fracture Narcotic abuse Seizures Asthma COPD (chronic obstructive pulmonary disease) Social History Social History Alcohol intake: unknown Substance Use Type: Crack/Cocaine and Opiates Advance Directives: Yes Advance Directives Information Provided: No Advance Directives on File: No Physical Exam 2 Vital Signs: Vital Signs: Last Vital Signs Temp 98.4 F 07/31/23 14:19 Pulse 53 07/31/23 14:19 Resp 16 07/31/23 14:19 BP 91/45 L 07/31/23 14:19 Pulse Ox 91 L 07/31/23 14:19 O2 Del Method Room Air 07/31/23 14:19 BMI result Body Mass Index 29.9 Vital signs have been reviewed and appear to be correct. Blood pressure normal. Heart rate normal. Respiratory rate normal. Temperature normal. Oxygen saturation normal. Const: General: cooperative, healthy appearing and no acute distress O rientation/consciousness: oriented to person, oriented to place, oriented to time and patient oriented x3 Limitations: no limitations HEENT: Head: Yes normocephalic and Yes atraumatic Ears: external ears normal General nose exam: Normal external nose present Face and sinus: Yes face symmetric Mouth: oropharynx normal and moist mucous membranes T hroat: Yes uvula midline Eyes: Pupils: Equal, round and reactive pupils present and Pupil size comments bilaterally 2 EOM: EOMs intact bilaterally Neck: Neck: Yes normal visual inspection and Yes supple Resp: Effort & Inspection: normal respiratory effort and able to speak in complete sentences Auscultation: clear to auscultation bilaterally Cardio: Rate: regular rate Rhythm: regular rhythm Heart sounds: S1 normal heart sound present and S2 normal heart sound present GI: Palpation (GI): Soft to palpation and nontender Auscultation: n ormoactive bowel sounds : General: Yes no CVA tenderness Back/Spine/Pelvis: Back: no CVA tenderness Skin: General skin exam: elasticity normal and turgor normal Neuro: General: oriented to person, oriented to place, oriented to time, patient oriented x3, moves all extremities, no focal motor deficits and CN's II- XI intact bilaterally Cranial nerves: Yes Equal, round and reactive pupils present Cognition (Neuro): normal cognition Extrem: General: Yes full ROM, Yes no pedal edema and Yes no calf tenderness Psych: Mental Status: mental status grossly normal Affect: normal affect Thought process: Normal thought process present Medical Decision Making Medical Decision Making MDM Narrative: Patient is a 48-year-old female with history of seizures, substance use disorder presenting to the emergency department with report of seizure/fall last night with subsequent left ankle pain and swelling. On exam patient is awake, A+Ox3, VS WNL, afebrile, normal neurological exam without focal deficits, physical exam findings as above. Given reported symptoms and physical exam findings, initial differential includes seizure, ICH, skull or cervical vertebral fracture, viral illness, Covid, flu, UTI, electrolyte abnormality, ankle fracture, ankle sprain, intoxication, subtherapeutic AED levels. Labs notable for leukopenia consistent with baseline, mild anemia consistent with baseline not at transfuse able level. Valproic acid level WNL. CT notable for no acute intracranial pathology, no skull fracture or cervical vertebral fracture. Left ankle x-ray notable for displaced distal fibula fracture with possible comminuted transverse fracture of medial malleolus. My interpretation is in agreement with the radiologist's interpretation. Ortho glass splint applied in the ED as per procedure note with good CMS before and after application of splint. Case discussed with Dr. Mann, patient's neurologist, who recommends adding Keppra 500 mg b.i.d. as well as an EEG. Admission accepted by Dr. Wasserman. Differential Diagnosis Differential Diagnoses: The differential diagnosis associated with the presentation includes As per MDM. Admission/Observation Consideration of admission/observation: Escalation of care including admission/observation considered Consult Healthcare Provider Management of the patient was discussed with: Hospitalist (Dr. Wasserman) and Vice President Business & Corporate Development (Dr. Mann, neuro) Lab Data [facility] Lab Attestation statement: I reviewed the patient's lab results. As per MDM. 07/31/23 10:25 07/31/23 10:25 Labs: Lab Results 07/31/23 07/31/23 Range/Units 09:29 10:25 WBC 3.7 L (4.8-10.8) X10*3/uL RBC 4.31 (4.20-5.50) X10*6/uL Hgb 11.8 L (12.0-16.0) g/dl Hct 35.7 L (37.0-47.0) % MCV 82.8 (80.0-98.0) fL MCH 27.4 (27.0-33.0) pg MCHC 33.1 (31.0-35.0) g/dl RDW 13.3 (11.0-16.0) % Plt Count 156 L (160-400) X10*3/uL MPV 9.9 (9.4-12.3) fL Immature Gran % (Auto) 0.3 (0.0-0.4) % Neut % (Auto) 58.7 (45-73) % Lymph % (Auto) 28.5 (20-40) % [place] % (Auto) 11.1 H (2-11) % Eos % (Auto) 1.1 (0-4) % Baso % (Auto) 0.3 (0-2) % Lymph # (Auto) 1.1 L (1.2-4.9) X10*3/uL [place] # (Auto) 0.4 (0.1-1.2) X10*3/uL Eos # (Auto) 0.0 (0.0-0.4) X10*3/uL Baso # (Auto) 0.0 (0.0-0.2) X10*3/uL Abs Immat Gran (auto) 0.01 (0.00-0.03) X10*3/uL Absolute Neuts (auto) 2.2 (2.0-8.3) x10*3/uL Absolute Nucleated RBC 0.000 (0.0-0.012) X10*3/uL Nucleated RBC % (auto) 0.0 (0.0-0.2) /100WBC PT 11.3 (11.1-13.3) SEC INR 0.9 (0.9-1.1) Sodium 140 (135-145) mmol/L Potassium 4.7 (3.3-5.1) mmol/L Chloride 104 (96-108) mmol/L Carbon Dioxide 29 (22-29) mmol/L Anion Gap 12 (12-20) BUN 23 H (9-16) mg/dL Creatinine 1.27 (0.5-1.4) mg/dL Estim Creat Clear Calc 71.7 Estimated GFR 45 POC Glucose 111 (60-115) mg/dL Random Glucose 97 (60-115) mg/dL Calcium 9.5 (8.4-10.2) mg/dL Magnesium 2.1 (1.6-2.6) mg/dL Total Bilirubin 0.3 (0.0-1.0) mg/dL AST 12 (5-31) U/L ALT 9 (0-31) U/L Alkaline Phosphatase 61 (39-117) U/L Troponin I High Sens < 2.7 (<3.5-17.0) ng/L Total Protein 6.3 L (6.5-8.0) g/dL Albumin 3.7 (3.5-5.0) g/dL Beta HCG, Quant < 2 mIU/mL Valproic Acid 61.9 (50.0-100.0) mcg/mL Ethyl Alcohol < 10 mg/dL COVID-19 (ZEINA) Negative (Negative) COVID-19 Clin Com See Note Influenza Type A (JEROMY) Negative (Negative) Influenza Type B (JEROMY) Negative (Negative) Influenza A & B Note See Note Independent Interpretation I performed an independent interpretation of an: EKG (sinus bradycardia with sinus arrhythmia, rate 58bpm, normal OK and QT intervals), Plain X-Ray and CT Scan Interpretation: Distal left fibula fracture, possibly comminuted transverse fracture of medial malleolus No acute intracranial pathology, skull fracture, cervical vertebral fracture Radiology Impression Discussion of test interpretation with radiology: I have reviewed the radiologist's reading. Radiologist Impression: XR/XR ankle LT min 3V IMPRESSION: Displaced oblique fracture of the distal fibula at the level of the syndesmosis. Possibly comminuted transverse fracture involving the medial malleolus. Marked lateral soft tissue swelling. CT/CT head/brain wo IV con IMPRESSION: 1. No acute intracranial pathology. 2. No acute osseous abnormality within the cervical spine. Independent Historian Clinical information obtained from an independent historian. History obtained from or confirmed by: Parent (mother) External Record Review External record reviewed: Inpatient record, Office record and Outpatient record Procedures Orthopedic Splinting/Casting Injury #1: Side: left Lower Extremity Injury Location: ankle Lower Extremity Immobilizer: posterior splint and stirrup splint Discharge Plan Discharge Patient Disposition: Admitted As Inpatient Prescriptions: No Action ibuprofen 800 mg tablet 800 mg PO TID PRN (Reason: for pain) Qty: 90 0RF azithromycin 250 mg tablet See Rx Instructions .ROUTE .COMPLEX Qty: 6 0RF Rx Instructions: take 500 mg today (day 1), then 250 mg for 4 days (days 2-5) azithromycin 250 mg tablet See Rx Instructions .ROUTE .COMPLEX Qty: 6 0RF Rx Instructions: take 500 mg today (day 1), then 250 mg for 4 days (days 2-5) prednisone 20 mg tablet 40 mg PO DAILY Qty: 10 0RF albuterol sulfate 2.5 mg /3 mL (0.083 %) solution for nebulization 2.5 mg inhalation QID PRN (Reason: shortness of breath or wheezing) Qty: 75 0RF (DME) nebulizer and compressor [PureAir Mini Nebulizer] Device See Rx Instructions .Route Qty: 1 0RF Rx Instructions: As directed azithromycin 250 mg tablet See Rx Instructions .ROUTE .COMPLEX Qty: 6 0RF Rx Instructions: take 500 mg today (day 1), then 250 mg for 4 days (days 2-5) azithromycin 250 mg tablet See Rx Instructions PO .COMPLEX Qty: 6 0RF Rx Instructions: For 250 mg dose pack: take 500 mg today (day 1), then 250 mg for 4 days (days 2-5)
--- NOTE | 2023-07-31 09:30 | ECG_ITS ---
Test Reason : SEIZURE Blood Pressure : / mmHG Vent. Rate : 058 BPM Atrial Rate : 058 BPM P-R Int : 166 ms QRS Dur : 094 ms QT Int : 404 ms P-R-T Axes : 046 039 052 degrees QTc Int : 396 ms Sinus bradycardia with sinus arrhythmia Nonspecific T wave abnormality Abnormal ECG When compared with ECG of 04-SEP-2019 11:44, No significant changes seen Referred By: Alana Barnes Electronically Signed By:CLEVELAND LEDEZMA
[2023-07-31 09:32] LABS: Glucose, Whole Blood 111 mg/dL (60-115)
[2023-07-31 09:33] VITALS: BP 105/77; BP 122/86; PULSE 65; PULSE 68; RESP 18; TEMP 37.1; O2SAT 96; BMI 29.9
[2023-07-31 10:32] LABS: MANUAL DIFF FLAG NO
[2023-07-31 10:33] LABS: Basophils Percent Auto 0.3 % (0-2); Eosinophils Percent Auto 1.1 % (0-4); Hematocrit 35.7 % (37.0-47.0); Hemoglobin 11.8 g/dl (12.0-16.0); Imm Gran Abs Auto 0.01 X10*3/uL (0.00-0.03); Imm Gran Pct Auto 0.3 % (0.0-0.4); Lymphocytes Absolute Auto 1.1 X10*3/uL (1.2-4.9); Lymphocytes Percent Auto 28.5 % (20-40); Mean Corpuscular HGB Conc 33.1 g/dl (31.0-35.0); Mean Corpuscular Hemoglobin 27.4 pg (27.0-33.0); Mean Corpuscular Volume 82.8 fL (80.0-98.0); Mean Platelet Volume 9.9 fL (9.4-12.3); Monocytes Absolute Auto 0.4 X10*3/uL (0.1-1.2); Monocytes Percent Auto 11.1 % (2-11); Neutrophils Absolute Auto 2.2 x10*3/uL (2.0-8.3); Neutrophils Percent Auto 58.7 % (45-73); Platelet Count 156 X10*3/uL (160-400); Red Blood Count 4.31 X10*6/uL (4.20-5.50); Red Cell Distribution Width 13.3 % (11.0-16.0); White Blood Count 3.7 X10*3/uL (4.8-10.8)
[2023-07-31 10:44] LABS: INTERNATIONAL NORM RATIO 0.9 (0.9-1.1); Prothrombin Time 11.3 SEC (11.1-13.3)
[2023-07-31 10:47] LABS: Valproate 61.9 mcg/mL (50.0-100.0)
[2023-07-31 10:50] LABS: COVID-19 Test Negative (Negative); IDNOW Serial# 08D9AD1C; IDNOW Serial# 9DB6401D; Influenza A Negative (Negative); Influenza B2 Negative (Negative)
[2023-07-31 10:51] LABS: Ethanol < 10 mg/dL
[2023-07-31 10:56] LABS: Alanine Aminotransferase 9 U/L (0-31); Albumin Level 3.7 g/dL (3.5-5.0); Alkaline Phosphatase 61 U/L (39-117); Anion Gap 12 (12-20); Aspartate Amino Transferase 12 U/L (5-31); Bilirubin Total 0.3 mg/dL (0.0-1.0); Blood Urea Nitrogen 23 mg/dL (9-16); Calcium 9.5 mg/dL (8.4-10.2); Carbon Dioxide 29 mmol/L (22-29); Chloride 104 mmol/L (96-108); Creatinine Clr Calc Pharmacy 71.7; Estimated Glomerular Filt Rate 45; Glucose Random 97 mg/dL (60-115); Magnesium 2.1 mg/dL (1.6-2.6); Potassium 4.7 mmol/L (3.3-5.1); Sodium 140 mmol/L (135-145); Total Protein 6.3 g/dL (6.5-8.0)
[2023-07-31 11:04] LABS: HCG Quantitative < 2 mIU/mL; Troponin-I High Sensitivity < 2.7 ng/L (<3.5-17.0)
--- NOTE | 2023-07-31 13:06 | P.CNNE_ITS ---
History of Present Illness Data of Consult Service Date: 07/31/23 Primary Care Provider: Magen Lantigua MD HPI Reason for consult: Possible seizure disorder 48 years old woman with underlying history of bipolar disorder and substance abuse with possible seizure disorder and migraine somewhat noncompliant with medicine and also having side effects from different medicines. Recently her small dose of lamotrigine was stopped and she was started and topiramate. She said that she was having seizures during which she was not shaking but somewhat becoming unresponsive and last night fell down and had leg injury. Mother was with her who has not seen any convulsion. Previously her brain imaging is not reveal any significant abnormality. One EEG was slightly abnormal. Review of Systems 2 Review of Systems: No cold or flu-like illness. [facility] Past Medical History Medical History Clavicle fracture Narcotic abuse Seizures Asthma COPD (chronic obstructive pulmonary disease) Social History Social History Alcohol intake: unknown Substance Use Type: Crack/Cocaine and Opiates Advance Directives: Yes Advance Directives Information Provided: No Advance Directives on File: No Meds Allergies Allergy/AdvReac Type Severity Reaction Status Date / Time amoxicillin [AMOXICILLIN] Allergy Intermediate RASH Verified 07/31/23 09:33 Penicillins [PENICILLINS] Allergy Intermediate RASH Verified 07/31/23 09:33 Narcotics AdvReac Severe Itching Uncoded 06/16/23 08:33 Physical Exam 2 Vital Signs: Vital Signs: Last Vital Signs Temp 98.7 F 07/31/23 09:33 Pulse 68 07/31/23 09:33 Resp 18 07/31/23 09:33 BP 105/77 07/31/23 09:33 Pulse Ox 96 07/31/23 09:33 O2 Del Method Room Air 07/31/23 09:33 BMI result Body Mass Index 29.9 Neuro: Other: Alert and awake with normal spontaneity of speech fluency comprehension and affect. Face is symmetrical. Visual lanier are full. Deep tendon reflexes are 1+ except left leg reflexes slightly brisk with flexor plantars. Results Labs 07/31/23 10:25 07/31/23 10:25 Labs: Short CBC 07/31/23 Range/Units 10:25 WBC 3.7 L (4.8-10.8) X10*3/uL Hgb 11.8 L (12.0-16.0) g/dl Hct 35.7 L (37.0-47.0) % Plt Count 156 L (160-400) X10*3/uL BMP 07/31/23 10:25 Sodium 140 Potassium 4.7 Chloride 104 Carbon Dioxide 29 BUN 23 H Creatinine 1.27 Calcium 9.5 Liver Function 07/31/23 Range/Units 10:25 Total Bilirubin 0.3 (0.0-1.0) mg/dL AST 12 (5-31) U/L ALT 9 (0-31) U/L Alkaline Phosphatase 61 (39-117) U/L Albumin 3.7 (3.5-5.0) g/dL Noncontrast head CT did not reveal any significant abnormality. 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 More definitive diagnosis of seizures or if recent symptoms were seizures were difficult to confirm. She takes valproic acid that could continue. I recently added topiramate to which she had side effects and reported that she could not take it. My recommendation is to add levetiracetam 500 mg twice a day and if possible obtain an EEG. Procedures Date of Service Date of Service: 07/31/23
[2023-07-31 14:19] VITALS: BP 91/45; PULSE 53; RESP 16; TEMP 36.9; O2SAT 91
--- NOTE | 2023-07-31 14:58 | PM.IMHP ---
History of Present Illness Date of Service: 07/31/23 Chief Complaint: fall ? seizure 48 year old with history of siezure d/o, history of opiodi use desorder but states she has been in recovery she presents to the ED with co of fall yesterday with left ankle injury, she's also reporting seizure yesterday. Xray of the left ankle show Displaced oblique fracture of the distal fibula at the level of thesyndesmosis. Possibly comminuted transverse fracture involving the medial malleolus. Marked lateral soft tissue swelling. She has a splint on . She is drowsy but easily aroused and answers questions apropriately.. Neurologist has seen her and recommending adding Keppra and if possible to do EEG Review of Systems Review of Systems: Gen: no fever Resp: no sob, no cough CV: no chest, no WU, no leg edema GI: No n/v, no abd pain Neuro: No confusion Yes all other systems are reviewed and are negative [facility] Medical History Clavicle fracture Narcotic abuse Seizures Asthma COPD (chronic obstructive pulmonary disease) Social History Household Members: Family Housing: House Do you presently have visiting nurse or other home services: No Alcohol intake: unknown Patient Tobacco Use Status: Never used Tobacco Smoked in Last 30 Days: No Patient Interested in Nicotine Replacement: No Use of substances other than those prescribed or required for medical reasons: No Substance Use Type: Crack/Cocaine and Opiates Currently Displaying Signs/Symptoms of Drug Intoxication Withdrawal: No Have you been hit, kicked, punched, or otherwise hurt by someone within the past year? If so, by whom?: No Do you feel safe in your current relationship?: Yes Are you made to feel afraid or neglected: No Advance Directives: Yes Advance Directives Information Provided: No Advance Directives on File: No Advance Directives Date on File: 07/31/23 Do you have thoughts of harming others: None Do you have a plan to hurt others: No Plan Recently lost weight without trying: No Eating poorly because of decreased appetite: No Nutrition Risks: No Nutritional Risk Patient : No : No Poor oral hygiene: No service: No Meds Allergies Allergy/AdvReac Type Severity Reaction Status Date / Time amoxicillin [AMOXICILLIN] Allergy Intermediate RASH Verified 07/31/23 09:33 Penicillins [PENICILLINS] Allergy Intermediate RASH Verified 07/31/23 09:33 Narcotics AdvReac Severe Itching Uncoded 06/16/23 08:33 Active Medications: Current Medications Levetiracetam (Levetiracetam 500 Mg Tablet) 500 mg PO BID [facility] Home Medications Medication Instructions Recorded Confirmed Last Taken Type albuterol sulfate 90 mcg/actuation 2 puff inhalation Q4-6H PRN 07/31/23 07/31/23 Unknown History aerosol inhaler Shortness Of Breath Or Wheezing diclofenac sodium 1 % topical gel 1 g topical DAILY PRN Pain 07/31/23 07/31/23 Unknown History divalproex 250 mg tablet,delayed 250 mg PO BEDTIME 07/31/23 07/31/23 07/30/23 History release divalproex 500 mg tablet,delayed 500 mg PO BID 07/31/23 07/31/23 07/30/23 History release hydroxyzine HCl 25 mg tablet 25 mg PO BID PRN Anxiety 07/31/23 07/31/23 Unknown History indomethacin 50 mg capsule 50 mg PO BID 07/31/23 07/31/23 07/31/23 History methadone 10 mg/mL oral 100 mg PO BEDTIME 07/31/23 07/31/23 07/31/23 History concentrate (Methadone Intensol) methadone 10 mg/mL oral 120 mg PO DAILY 07/31/23 07/31/23 07/31/23 History concentrate (Methadone Intensol) mometasone-formoterol HFA 100 2 puff inhalation BID 07/31/23 07/31/23 Unknown History mcg-5 mcg/actuation aerosol inhaler (Dulera) ondansetron 4 mg disintegrating 4 mg PO DAILY PRN Nausea 07/31/23 07/31/23 Unknown History tablet oxycodone 5 mg tablet 5 mg PO QID PRN Pain 07/31/23 07/31/23 Unknown History topiramate 25 mg tablet 25 mg PO BID 07/31/23 07/31/23 Unknown History trazodone 50 mg tablet 50 - 100 mg PO BEDTIME 07/31/23 07/31/23 Unknown History Physical Exam Vital Signs and Narrative: Vital Signs: Last Vital Signs Temp 98.4 F 07/31/23 14:19 Pulse 53 07/31/23 14:19 Resp 16 07/31/23 14:19 BP 91/45 L 07/31/23 14:19 Pulse Ox 91 L 07/31/23 14:19 O2 Del Method Room Air 07/31/23 14:19 BMI result Body Mass Index 29.9 Const: Other: General: AO X 3, no acute distress Resp: CTA bilateral CVS: S1,S2,RRR GI: +BS, NT, no distention Skin: No rash MSK left ankle s;int Neuro: motor grossly intact Psych: appropriate affect Results Labs 07/31/23 10:25 07/31/23 10:25 Labs: Laboratory Results - last 24 hr 07/31/23 07/31/23 09:29 10:25 MCV 82.8 MCH 27.4 MCHC 33.1 RDW 13.3 Plt Count 156 L MPV 9.9 Immature Gran % (Auto) 0.3 Neut % (Auto) 58.7 Lymph % (Auto) 28.5 [place] % (Auto) 11.1 H Eos % (Auto) 1.1 Baso % (Auto) 0.3 Lymph # (Auto) 1.1 L [place] # (Auto) 0.4 Eos # (Auto) 0.0 Baso # (Auto) 0.0 Abs Immat Gran (auto) 0.01 Absolute Neuts (auto) 2.2 Absolute Nucleated RBC 0.000 Nucleated RBC % (auto) 0.0 PT 11.3 INR 0.9 Anion Gap 12 Estim Creat Clear Calc 71.7 Estimated GFR 45 POC Glucose 111 Random Glucose 97 Calcium 9.5 Magnesium 2.1 Total Bilirubin 0.3 AST 12 ALT 9 Alkaline Phosphatase 61 Total Protein 6.3 L Albumin 3.7 Beta HCG, Quant < 2 Valproic Acid 61.9 Ethyl Alcohol < 10 COVID-19 (ZEINA) Negative COVID-19 Clin Com See Note Influenza Type A (JEROMY) Negative Influenza Type B (JEROMY) Negative Influenza A & B Note See Note Imaging Radiologist's Impressions: Impressions Cervical Spine CT 07/31/23 10:10 IMPRESSION: 1. No acute intracranial pathology. 2. No acute osseous abnormality within the cervical spine. Head CT 07/31/23 10:10 IMPRESSION: 1. No acute intracranial pathology. 2. No acute osseous abnormality within the cervical spine. Ankle X-Ray 07/31/23 10:15 IMPRESSION: Displaced oblique fracture of the distal fibula at the level of the syndesmosis. Possibly comminuted transverse fracture involving the medial malleolus. Marked lateral soft tissue swelling. Foot X-Ray 07/31/23 10:15 IMPRESSION: Displaced oblique fracture of the distal fibula at the level of the syndesmosis. Possibly comminuted transverse fracture involving the medial malleolus. Marked lateral soft tissue swelling. Assessment and Plan (1) Seizure: Status: Acute (2) Fracture of medial malleolus, left, closed: Status: Acute Plan 48/F with seizure d/o, opioid use desorder on methadone here with fall with distal L fibula fracture Seizure on valproic acid, topomax at home-Neuro recommends Keppra, EEG when feasible Ankle L distal fibula fracture--Splint, ortho consult, PT eval. Oxycodone for pain h/o of opioid use desorder on high dose of methadone, addiction med consult DVT prophylaxis: lovenox full code Quality Stroke Does the patient have a stroke diagnosis?: No VTE Prior VTE?: No VTE Risk Level:: Medical - moderate - high VTE Device Contraindication: N/A - Device Ordered VTE Drug Contraindication: Treatment Not Indicated
--- NOTE | 2023-07-31 15:07 | PC.NURSE ---
pt resting comfortably in no apparent distress w/ the lights dimmed. no sob/wob noted. respirations remain even and unlabored. call richey placed within reach.
[2023-07-31 15:31] VITALS: BP 90/50; PULSE 46; RESP 18; TEMP 36.8; O2SAT 93
[2023-07-31] MEDS: Enoxaparin Sodium 40 MG/0.4 ML SYRINGE SUBCUT (16:14)
--- NOTE | 2023-07-31 16:20 | PC.NURSE ---
patient a&ox3, vss- pt hypotensive but states she is baseline hypotensive, LLE + csm/pulses- cast intact, Dr. Finn ordered ivf- pt adamantly refusing IV access, this nurse tiger texted Dr. Finn to notify him of this and he requested that this nurse document that she has refused and that he was notified. Currently pt denies pain, requesting po which was given, call richey within reach, will continue to monitor
--- NOTE | 2023-07-31 16:40 | PHA.MEDREC ---
Pharmacy Consult ? Medication Reconciliation Pharmacy has completed the medication reconciliation.Confirmed Patient medication from mother and claim history. Shanna Olson CPhT
--- NOTE | 2023-07-31 17:22 | MHC.EDTECH ---
Patient bed pad changed and repositioned
--- NOTE | 2023-07-31 17:57 | MHC.EDTECH ---
Patient given dinner tray
--- NOTE | 2023-07-31 18:53 | PC.NURSE ---
methadone verification this nurse verified pts methadone- faxed to pharmacy, Dr. Finn was notified and a picture of the verification form was sent via tiger text to him. Dr. Finn stated pt has been drowsy and should probably get the dosage starting tomm.
[2023-07-31 19:02] VITALS: BP 91/48; PULSE 50; RESP 18; TEMP 36.7; O2SAT 94
--- NOTE | 2023-07-31 19:31 | HE.PHANOTE ---
RE METHADONE patient received methadone from [facility]. last dosed with clinic on 07/28/23. patient was given take home bottles, RN confirmed with patient that they did take their take home bottles on 07/31/23. Dose is 120 mg in the morning and 100 mg in the evening
[2023-07-31 19:40] VITALS: BP 95/51; PULSE 64; RESP 14; O2SAT 92
[2023-07-31 20:00] VITALS: BP 101/53; PULSE 50; RESP 18; TEMP 36.3; O2SAT 99
[2023-07-31 20:23] VITALS: BMI 31.4
[2023-07-31] MEDS: Divalproex Sodium 500 MG TABLET.DR PO (22:13)
[2023-07-31] MEDS: Divalproex Sodium 250 MG TABLET.DR PO (22:14)
[2023-07-31] MEDS: methADONE HCl 20 MG/2 ML ORAL.CONC 100 MG PO (22:14)
[2023-07-31] MEDS: levETIRAcetam 500 MG TABLET PO (22:14)
[2023-07-31] MEDS: 0.9 % Sodium Chloride 1,000 ML 125 ML IVCONT (23:27)
[2023-08-01 07:08] VITALS: BP 112/57; PULSE 52; RESP 18; TEMP 36.6; O2SAT 95
[2023-08-01] MEDS: 0.9 % Sodium Chloride 1,000 ML 125 ML IVCONT (07:20)
[2023-08-01] MEDS: Fluticasone/Vilanterol 100/25 BLST.W.DEV 1 PUFF INHALE (07:59)
[2023-08-01 08:01] VITALS: PULSE 57; RESP 16; O2SAT 95
--- NOTE | 2023-08-01 08:36 | MHC.CM.PN ---
ILIA DELIVERED. PATIENT IS FROM HOME W/ PARENTS. FUNCTIONALLY INDEPENDENT. PCP: EVA SINGH MD NO HCP, CM PROVIDED EDUCATION AND OFFERED ASSISTANCE. PATIENT DECLINED. DP: PENDING PT EVAL. GOAL IS HOME W/ FAMILY SUPPORT. OUTPT F/U W/ ORTHO FOR ANKLE FX. FAMILY CAN TRANSPORT. CM WILL CONTINUE TO FOLLOW.
[2023-08-01] MEDS: levETIRAcetam 500 MG TABLET PO ×2 (09:10→21:58)
[2023-08-01] MEDS: Divalproex Sodium 500 MG TABLET.DR PO ×2 (09:10→21:58)
[2023-08-01] MEDS: methADONE HCl 20 MG/2 ML ORAL.CONC 120 MG PO (09:10)
[2023-08-01] MEDS: Indomethacin 25 MG CAPSULE 50 MG PO ×2 (10:14→22:09)
--- NOTE | 2023-08-01 10:36 | HO.PM.IMPN ---
Subjective Subjective Date of Service: 08/01/23 Interval History: f/u seizure, left distal fibula fracture c/o pain at the ankle and did not participate in PT, no seizure Physical Exam Vital Signs: Vital Signs: Last Vital Signs Temp 97.8 F 08/01/23 07:08 Pulse 57 08/01/23 08:01 Resp 16 08/01/23 08:01 BP 112/57 L 08/01/23 07:08 Pulse Ox 95 08/01/23 07:08 O2 Del Method Room Air 08/01/23 07:08 BMI result Body Mass Index 31.4 General: AO X 3, no acute distress Resp: CTA bilateral CVS: S1,S2,RRR GI: +BS, NT, no distention Skin: No rash MSK left ankle s;int Neuro: motor grossly intact Psych: appropriate affect Objective Data Active Medications Acetaminophen (Acetaminophen 325 Mg Tablet) 650 mg PO Q6H PRN PRN Reason: Pain, Mild (Pain Scale 1-3) Al Hydroxide/Mg Hydroxide (Magnesium Hydrox/Alum Hydrox 30 Ml Oral.Susp) 30 ml PO Q4H PRN PRN Reason: Heartburn/Nausea Albuterol Sulfate (Albuterol Sulfate 90 Mcg 8 Gm Inhaler) 2 puff INHALE Q4H PRN PRN Reason: Shortness Of Breath Or Wheezing Divalproex Sodium (Divalproex Sodium 250 Mg Tablet.) 250 mg PO BEDTIME [facility] Last Admin: 07/31/23 22:14 Dose: 250 mg Documented By: JOSE Divalproex Sodium (Divalproex Sodium 500 Mg Tablet.) 500 mg PO BID [facility] Last Admin: 08/01/23 09:10 Dose: 500 mg Documented By: ROSIE Enoxaparin Sodium (Enoxaparin Sodium 40 Mg/0.4 Ml Syringe) 40 mg SUBCUT Q24H [facility] Last Admin: 07/31/23 16:14 Dose: 40 mg Documented By: ANNAMARIE Fluticasone/Vilanterol (Fluticasone/Vilanterol 100/25 Blst.W.Dev) 1 puff INHALE RDAILY [facility] Last Admin: 08/01/23 07:59 Dose: 1 puff Documented By: HAL Hydroxyzine HCl (Hydroxyzine Hcl 25 Mg Tablet) 25 mg PO BID PRN PRN Reason: Anxiety Sodium Chloride (Ns) 1,000 mls @ 125 mls/hr IVCONT .Q8H [facility] Last Admin: 08/01/23 07:20 Dose: 125 mls/hr Documented By: ROSIE Ibuprofen (Ibuprofen 800 Mg Tablet) 800 mg PO TID PRN PRN Reason: for pain Indomethacin (Indomethacin 25 Mg Capsule) 50 mg PO BID [facility] Last Admin: 08/01/23 10:14 Dose: 50 mg Documented By: ROSIE Levetiracetam (Levetiracetam 500 Mg Tablet) 500 mg PO BID [facility] Last Admin: 08/01/23 09:10 Dose: 500 mg Documented By: ROSIE Magnesium Hydroxide (Milk Of Magnesia 30 Ml Oral.Susp) 30 ml PO DAILY PRN PRN Reason: Constipation Methadone HCl (Methadone Hcl 20 Mg/2 Ml Oral.Conc) 100 mg PO BEDTIME [facility] Methadone HCl (Methadone Hcl 20 Mg/2 Ml Oral.Conc) 120 mg PO DAILY [facility] Last Admin: 08/01/23 09:10 Dose: 120 mg Documented By: ROSIE Non-Formulary Medication (Diclofenac Sodium) 1 gm TOPICAL DAILY PRN PRN Reason: Pain Ondansetron HCl (Ondansetron Hcl 4 Mg/2 Ml Vial) 4 mg IVPUSH Q8H PRN PRN Reason: Nausea and Vomiting Oxycodone HCl (Oxycodone Hcl Immed Release 5 Mg Tablet) 5 mg PO Q6H PRN PRN Reason: Pain, Severe (Pain Scale 7-10) Sodium Chloride (0.9 % Sodium Chloride Flush 3 Ml Syringe) 3 ml IVFLUSH QSHIFT [facility] Last Admin: 08/01/23 07:50 Dose: Not Given Documented By: ROSIE Non-Admin Reason: IV Running Trazodone HCl (Trazodone Hcl 50 Mg Tablet) 50 mg PO BEDTIME [facility] Labs 07/31/23 10:25 07/31/23 10:25 Labs: Laboratory Results - last 24 hr 07/31/23 10:25 PT 11.3 INR 0.9 Anion Gap 12 Estim Creat Clear Calc 71.7 Estimated GFR 45 Random Glucose 97 Calcium 9.5 Magnesium 2.1 Total Bilirubin 0.3 AST 12 ALT 9 Alkaline Phosphatase 61 Total Protein 6.3 L Albumin 3.7 Beta HCG, Quant < 2 Valproic Acid 61.9 Ethyl Alcohol < 10 COVID-19 (ZEINA) Negative COVID-19 Clin Com See Note Influenza Type A (JEROMY) Negative Influenza Type B (JEROMY) Negative Influenza A & B Note See Note Assessment and Plan (1) Seizure: Status: Acute (2) Fracture of medial malleolus, left, closed: Status: Acute (3) Closed left fibular fracture: Status: Acute Plan 48/F with seizure d/o, opioid use desorder on methadone here with fall with distal L fibula fracture Seizure on valproic acid, topomax at home-Neuro recommends Keppra, EEG when feasible, she believes topomax is making her dizzy and no longer wants to take it, eeg thursday if still here L distal fibula and medial malleolus fractures--Splint, ortho consult, PT eval. Oxycodone for pain h/o of opioid use desorder on high dose of methadone, addiction med consult DVT prophylaxis: lovenox full code Quality Stroke Does the patient have a stroke diagnosis?: No VTE Prior VTE?: No VTE Risk Level:: Medical - moderate - high VTE Device Contraindication: Treatment Not Tolerated VTE Drug Contraindication: N/A - Med Ordered
--- NOTE | 2023-08-01 12:29 | PM.CNOR ---
History of Present Illness HPI Consult date: 08/01/23 Chief complaint: Seizure Narrative: 48 yo female with PMH seizures presented to the ED after having a seizure in the kitchen which resulted in a fall and a elizabeth left ankle fx. She was admitted to the medical service for further management of her seizures and orthopedics was consulted for recommendations left ankle fracture. Review of Systems Review of Systems: unobtainable - she is asleep PMFSH Past Medical History Medical History Clavicle fracture Narcotic abuse Seizures Asthma COPD (chronic obstructive pulmonary disease) Social History Social History Household Members: Family Housing: House Do you presently have visiting nurse or other home services: No Alcohol intake: unknown Patient Tobacco Use Status: Never used Tobacco Smoked in Last 30 Days: No Patient Interested in Nicotine Replacement: No Use of substances other than those prescribed or required for medical reasons: No Substance Use Type: Crack/Cocaine and Opiates Currently Displaying Signs/Symptoms of Drug Intoxication Withdrawal: No Have you been hit, kicked, punched, or otherwise hurt by someone within the past year? If so, by whom?: No Do you feel safe in your current relationship?: Yes Are you made to feel afraid or neglected: No Advance Directives: Yes Advance Directives Information Provided: No Advance Directives on File: No Advance Directives Date on File: 07/31/23 Do you have thoughts of harming others: None Do you have a plan to hurt others: No Plan Recently lost weight without trying: No Eating poorly because of decreased appetite: No Nutrition Risks: No Nutritional Risk Patient : No : No Poor oral hygiene: No service: No Meds Allergies Allergy/AdvReac Type Severity Reaction Status Date / Time amoxicillin [AMOXICILLIN] Allergy Intermediate RASH Verified 07/31/23 09:33 Penicillins [PENICILLINS] Allergy Intermediate RASH Verified 07/31/23 09:33 Narcotics AdvReac Severe Itching Uncoded 06/16/23 08:33 Active Medications: Current Medications Acetaminophen (Acetaminophen 325 Mg Tablet) 650 mg PO Q6H PRN PRN Reason: Pain, Mild (Pain Scale 1-3) Al Hydroxide/Mg Hydroxide (Magnesium Hydrox/Alum Hydrox 30 Ml Oral.Susp) 30 ml PO Q4H PRN PRN Reason: Heartburn/Nausea Albuterol Sulfate (Albuterol Sulfate 90 Mcg 8 Gm Inhaler) 2 puff INHALE Q4H PRN PRN Reason: Shortness Of Breath Or Wheezing Divalproex Sodium (Divalproex Sodium 250 Mg Tablet.Dr) 250 mg PO BEDTIME [facility] Last Admin: 07/31/23 22:14 Dose: 250 mg Divalproex Sodium (Divalproex Sodium 500 Mg Tablet.Dr) 500 mg PO BID [facility] Last Admin: 08/01/23 09:10 Dose: 500 mg Enoxaparin Sodium (Enoxaparin Sodium 40 Mg/0.4 Ml Syringe) 40 mg SUBCUT Q24H [facility] Last Admin: 07/31/23 16:14 Dose: 40 mg Fluticasone/Vilanterol (Fluticasone/Vilanterol 100/25 Blst.W.Dev) 1 puff INHALE RDAILY [facility] Last Admin: 08/01/23 07:59 Dose: 1 puff Hydroxyzine HCl (Hydroxyzine Hcl 25 Mg Tablet) 25 mg PO BID PRN PRN Reason: Anxiety Sodium Chloride (Ns) 1,000 mls @ 125 mls/hr IVCONT .Q8H [facility] Last Infusion: 08/01/23 10:59 Dose: 0 mls/hr Ibuprofen (Ibuprofen 800 Mg Tablet) 800 mg PO TID PRN PRN Reason: for pain Indomethacin (Indomethacin 25 Mg Capsule) 50 mg PO BID [facility] Last Admin: 08/01/23 10:14 Dose: 50 mg Levetiracetam (Levetiracetam 500 Mg Tablet) 500 mg PO BID [facility] Last Admin: 08/01/23 09:10 Dose: 500 mg Magnesium Hydroxide (Milk Of Magnesia 30 Ml Oral.Susp) 30 ml PO DAILY PRN PRN Reason: Constipation Methadone HCl (Methadone Hcl 20 Mg/2 Ml Oral.Conc) 100 mg PO BEDTIME [facility] Methadone HCl (Methadone Hcl 20 Mg/2 Ml Oral.Conc) 120 mg PO DAILY [facility] Last Admin: 08/01/23 09:10 Dose: 120 mg Non-Formulary Medication (Diclofenac Sodium) 1 gm TOPICAL DAILY PRN PRN Reason: Pain Ondansetron HCl (Ondansetron Hcl 4 Mg/2 Ml Vial) 4 mg IVPUSH Q8H PRN PRN Reason: Nausea and Vomiting Oxycodone HCl (Oxycodone Hcl Immed Release 5 Mg Tablet) 5 mg PO Q6H PRN PRN Reason: Pain, Severe (Pain Scale 7-10) Sodium Chloride (0.9 % Sodium Chloride Flush 3 Ml Syringe) 3 ml IVFLUSH QSHIFT [facility] Last Admin: 08/01/23 07:50 Dose: Not Given Trazodone HCl (Trazodone Hcl 50 Mg Tablet) 50 mg PO BEDTIME [facility] Home Medications Medication Instructions Recorded Confirmed Last Taken Type albuterol sulfate 90 mcg/actuation 2 puff inhalation Q4-6H PRN 07/31/23 07/31/23 Unknown History aerosol inhaler Shortness Of Breath Or Wheezing diclofenac sodium 1 % topical gel 1 g topical DAILY PRN Pain 07/31/23 07/31/23 Unknown History divalproex 250 mg tablet,delayed 250 mg PO BEDTIME 07/31/23 07/31/23 07/30/23 History release divalproex 500 mg tablet,delayed 500 mg PO BID 07/31/23 07/31/23 07/30/23 History release hydroxyzine HCl 25 mg tablet 25 mg PO BID PRN Anxiety 07/31/23 07/31/23 Unknown History indomethacin 50 mg capsule 50 mg PO BID 07/31/23 07/31/23 07/31/23 History methadone 10 mg/mL oral 100 mg PO BEDTIME 07/31/23 07/31/23 07/31/23 History concentrate (Methadone Intensol) methadone 10 mg/mL oral 120 mg PO DAILY 07/31/23 07/31/23 07/31/23 History concentrate (Methadone Intensol) mometasone-formoterol HFA 100 2 puff inhalation BID 07/31/23 07/31/23 Unknown History mcg-5 mcg/actuation aerosol inhaler (Dulera) ondansetron 4 mg disintegrating 4 mg PO DAILY PRN Nausea 07/31/23 07/31/23 Unknown History tablet oxycodone 5 mg tablet 5 mg PO QID PRN Pain 07/31/23 07/31/23 Unknown History topiramate 25 mg tablet 25 mg PO BID 07/31/23 07/31/23 Unknown History trazodone 50 mg tablet 50 - 100 mg PO BEDTIME 07/31/23 07/31/23 Unknown History Physical Exam Vital Signs: Vital Signs: Last Vital Signs Temp 97.8 F 08/01/23 07:08 Pulse 57 08/01/23 08:01 Resp 16 08/01/23 08:01 BP 112/57 L 08/01/23 07:08 Pulse Ox 95 08/01/23 07:08 O2 Del Method Room Air 08/01/23 07:08 BMI result Body Mass Index 31.4 Const: General: cooperative, healthy appearing and no acute distress Resp: Effort & Inspection: normal respiratory effort and able to speak in complete sentences Cardio: Rate: regular rate Peripheral pulses: Peripheral pulses 2+ throughout GI: Palpation (GI): Soft to palpation Skin: General skin exam: no rashes or lesions noted Extrem: Other: Left ankle splint intact. Good color and temperature to toes Results Labs 07/31/23 10:25 07/31/23 10:25 Labs: H & H 07/31/23 Range/Units 10:25 Hgb 11.8 L (12.0-16.0) g/dl Hct 35.7 L (37.0-47.0) % Coagulation 07/31/23 Range/Units 10:25 INR 0.9 (0.9-1.1) All other labs normal. Assessment and Plan (1) Fracture of medial malleolus, left, closed: Qualifiers: Encounter type: initial encounter Fracture alignment: displaced Qualified Code(s): S82.52XA - Displaced fracture of medial malleolus of left tibia, initial encounter for closed fracture Status: Acute Plan Patient asleep and unable to answer questions at the time being due to effects from seizure/meds Spoke with her mom who is present in the room, Reba explained extent of injury and this would likely benefit from non op treatment, NWB x 6 weeks. She needs to get her seizures under control and we can follow up with her next week for new xrays out patient follow up and determine if surgery is needed. Procedures Date of Service Date of Service: 08/01/23
[2023-08-01 13:14] LABS: Appearance Urine Clear; Color Urine Yellow; Glucose Urine UA Negative (Negative); Leukocyte Esterase Urine Negative (Negative); Nitrite Urine Negative (Negative); PH 6.5 (5.0-9.0); Urine Blood Negative (Negative); Urine Ketones Trace mg/dL (Negative); Urine Protein Negative (Neg-Trace)
[2023-08-01 13:18] LABS: Amphetamine Screen Urine Not Detected (Not Detect); Barbiturates, Urine Not Detected (Not Detect); Benzodiazepines Screen Urine Not Detected (Not Detect); Cannabinoid Screen Urine Not Detected (Not Detect); Cocaine Screen Urine Not Detected (Not Detect); Fentanyl, urine Not Detected (Not Detect); Opiate Screen Urine Not Detected (Not Detect); Phencyclidine Screen Urine Not Detected (Not Detect)
--- NOTE | 2023-08-01 15:18 | PC.NURSE ---
pt peripheral IV to left upper arm infiltrated and was removed, mult. attempts to place new IV were not successful including from nursing photographic laboratory supervisor, ED stated they do not have anyone available trained on US guided IVs at this time, Dr. Finn made aware
[2023-08-01 15:25] VITALS: BP 98/54; PULSE 54; RESP 20; TEMP 36.6; O2SAT 93
[2023-08-01] MEDS: Enoxaparin Sodium 40 MG/0.4 ML SYRINGE SUBCUT (16:51)
[2023-08-01] MEDS: Milk of Magnesia 30 ML ORAL.SUSP PO (17:13)
[2023-08-01 20:00] VITALS: BP 90/84; PULSE 62; RESP 17; TEMP 36.7; O2SAT 92
[2023-08-01] MEDS: traZODone HCL 50 MG TABLET PO (21:57)
[2023-08-01] MEDS: oxyCODONE HCl Immed Release 5 MG TABLET PO (21:58)
[2023-08-01] MEDS: Divalproex Sodium 250 MG TABLET.DR PO (21:58)
[2023-08-01] MEDS: methADONE HCl 20 MG/2 ML ORAL.CONC 100 MG PO (22:01)
[2023-08-02 07:25] VITALS: BP 98/53; PULSE 64; RESP 20; TEMP 36.6; O2SAT 93
[2023-08-02] MEDS: Fluticasone/Vilanterol 100/25 BLST.W.DEV 1 PUFF INHALE (08:19)
[2023-08-02 08:20] VITALS: PULSE 67; RESP 20; O2SAT 95
[2023-08-02] MEDS: oxyCODONE HCl Immed Release 5 MG TABLET PO (08:40)
[2023-08-02] MEDS: Indomethacin 25 MG CAPSULE 50 MG PO ×2 (08:41→20:51)
[2023-08-02] MEDS: levETIRAcetam 500 MG TABLET PO ×2 (08:41→20:52)
[2023-08-02] MEDS: Divalproex Sodium 500 MG TABLET.DR PO ×2 (08:41→20:52)
[2023-08-02] MEDS: methADONE HCl 20 MG/2 ML ORAL.CONC 120 MG PO (08:42)
--- NOTE | 2023-08-02 09:32 | HO.PM.IMPN ---
Subjective Subjective Date of Service: 08/02/23 Interval History: f/u seizure, left distal fibula fracture. Still iwht pain in the ankle o/w feels better. She did not participate in PT yeserday Physical Exam Vital Signs: Vital Signs: Last Vital Signs Temp 98 F 08/02/23 07:25 Pulse 67 08/02/23 08:20 Resp 20 08/02/23 08:20 BP 98/53 L 08/02/23 07:25 Pulse Ox 93 08/02/23 07:25 O2 Del Method Room Air 08/02/23 07:25 BMI result Body Mass Index 31.4 General: AO X 3, no acute distress Resp: CTA bilateral CVS: S1,S2,RRR GI: +BS, NT, no distention Skin: No rash MSK left ankle s;int Neuro: motor grossly intact Psych: appropriate affect Const: Other: General: AO X 3, no acute distress Resp: CTA bilateral CVS: S1,S2,RRR GI: +BS, NT, no distention Skin: No rash MSK left ankle splint Neuro: motor grossly intact Psych: appropriate affect Objective Data Active Medications Acetaminophen (Acetaminophen 325 Mg Tablet) 650 mg PO Q6H PRN PRN Reason: Pain, Mild (Pain Scale 1-3) Al Hydroxide/Mg Hydroxide (Magnesium Hydrox/Alum Hydrox 30 Ml Oral.Susp) 30 ml PO Q4H PRN PRN Reason: Heartburn/Nausea Albuterol Sulfate (Albuterol Sulfate 90 Mcg 8 Gm Inhaler) 2 puff INHALE Q4H PRN PRN Reason: Shortness Of Breath Or Wheezing Divalproex Sodium (Divalproex Sodium 250 Mg Tablet.) 250 mg PO BEDTIME [facility] Last Admin: 08/01/23 21:58 Dose: 250 mg Documented By: JOSE Divalproex Sodium (Divalproex Sodium 500 Mg Tablet.) 500 mg PO BID [facility] Last Admin: 08/02/23 08:41 Dose: 500 mg Documented By: ROSIE Enoxaparin Sodium (Enoxaparin Sodium 40 Mg/0.4 Ml Syringe) 40 mg SUBCUT Q24H [facility] Last Admin: 08/01/23 16:51 Dose: 40 mg Documented By: ROSIE Fluticasone/Vilanterol (Fluticasone/Vilanterol 100/25 Blst.W.Dev) 1 puff INHALE RDAILY [facility] Last Admin: 08/02/23 08:19 Dose: 1 puff Documented By: HAL Hydroxyzine HCl (Hydroxyzine Hcl 25 Mg Tablet) 25 mg PO BID PRN PRN Reason: Anxiety Sodium Chloride (Ns) 1,000 mls @ 125 mls/hr IVCONT .Q8H [facility] Last Admin: 08/02/23 06:45 Dose: Not Given Documented By: ROSIE Non-Admin Reason: NO IV ACCESS Ibuprofen (Ibuprofen 800 Mg Tablet) 800 mg PO TID PRN PRN Reason: for pain Indomethacin (Indomethacin 25 Mg Capsule) 50 mg PO BID [facility] Last Admin: 08/02/23 08:41 Dose: 50 mg Documented By: ROSIE Levetiracetam (Levetiracetam 500 Mg Tablet) 500 mg PO BID [facility] Last Admin: 08/02/23 08:41 Dose: 500 mg Documented By: ROSIE Magnesium Hydroxide (Milk Of Magnesia 30 Ml Oral.Susp) 30 ml PO DAILY PRN PRN Reason: Constipation Last Admin: 08/01/23 17:13 Dose: 30 ml Documented By: ROSIE Methadone HCl (Methadone Hcl 20 Mg/2 Ml Oral.Conc) 100 mg PO BEDTIME [facility] Last Admin: 08/01/23 22:01 Dose: 100 mg Documented By: JOSE Methadone HCl (Methadone Hcl 20 Mg/2 Ml Oral.Conc) 120 mg PO DAILY [facility] Last Admin: 08/02/23 08:42 Dose: 120 mg Documented By: ROSIE Non-Formulary Medication (Diclofenac Sodium) 1 gm TOPICAL DAILY PRN PRN Reason: Pain Ondansetron HCl (Ondansetron Hcl 4 Mg/2 Ml Vial) 4 mg IVPUSH Q8H PRN PRN Reason: Nausea and Vomiting Oxycodone HCl (Oxycodone Hcl Immed Release 5 Mg Tablet) 5 mg PO Q6H PRN PRN Reason: Pain, Severe (Pain Scale 7-10) Last Admin: 08/02/23 08:40 Dose: 5 mg Documented By: ROSIE Sodium Chloride (0.9 % Sodium Chloride Flush 3 Ml Syringe) 3 ml IVFLUSH QSHIFT [facility] Last Admin: 08/02/23 06:45 Dose: Not Given Documented By: ROSIE Non-Admin Reason: No Access Trazodone HCl (Trazodone Hcl 50 Mg Tablet) 50 mg PO BEDTIME [facility] Last Admin: 08/01/23 21:57 Dose: 50 mg Documented By: JOSE Labs 07/31/23 10:25 07/31/23 10:25 Labs: Laboratory Results - last 24 hr 08/01/23 12:52 Urine Color Yellow Urine Appearance Clear Urine pH 6.5 Ur Specific [place] 1.020 Urine Protein Negative Urine Glucose (UA) Negative Urine Ketones Trace Urine Blood Negative Urine Nitrite Negative Ur Leukocyte Esterase Negative Urine Opiates Screen Not Detected Urine Fentanyl Screen Not Detected Ur Barbiturates Screen Not Detected Ur Phencyclidine Scrn Not Detected Ur Amphetamines Screen Not Detected U Benzodiazepines Scrn Not Detected Urine Cocaine Screen Not Detected U Marijuana (THC) Screen Not Detected Assessment and Plan (1) Seizure: Status: Acute (2) Fracture of medial malleolus, left, closed: Status: Acute (3) Closed left fibular fracture: Status: Acute Plan 48/F with seizure d/o, opioid use desorder on methadone here with fall with distal L fibula fracture Seizure on valproic acid, topomax at home-Neuro recommends Keppra, EEG when feasible, she believes topomax is making her dizzy and no longer wants to take it, eeg thursday if still here L distal fibula and medial malleolus fractures--Splint, ortho consult recommending conservating managment with WBA x 6 weeks, PT eval. Oxycodone for pain h/o of opioid use desorder on high dose of methadone, addiction med consult DVT prophylaxis: lovenox full code Quality Stroke Does the patient have a stroke diagnosis?: No VTE Prior VTE?: No VTE Risk Level:: Medical - moderate - high VTE Device Contraindication: Treatment Not Tolerated VTE Drug Contraindication: N/A - Med Ordered
--- OUTSIDE RECORDS SUMMARY | 2023-08-02 10:19 | XMS_ITS | Continuity of Care Document ---
Author Name Unknown Organization [facility] ter Address [address] [place] [id number]- Care Team Providers Care [employer] W[employer] Technician Name Role Phone Tee BAUMANN, Silvina Primary Care Physician [phone] Encounter [facility] Date(s): 10/17/22 - 10/17/[address] [address]- Discharge Disposition: A-D/C AMA Attending Physician: Randal Smith MD Admitting Physician: Randal Smith MD Referring Physician: Not on Staff, Referring MD Allergies, Adverse Reactions, Alerts Substance Reaction Severity Status amoxicillin rash Active penicillins C/O: itching Active Immunizations Given and Recorded Vaccine Date Status Refusal Reason SARS-CoV-2 (COVID-19) mRNA BNT-162b2 vac 02/17/21 Recorded SARS-CoV-2 (COVID-19) mRNA BNT-162b2 vac 01/27/21 Recorded Medications Depakote = 500 mg, By Mouth, 2 times a day, 0 Refills, Maintenance, 08/23/19 10:27:00 EST Start Date: 08/23/19 Status: Ordered gabapentin 300 mg oral capsule 300 mg, 1, capsule, By Mouth, 3 times a day, Refills 0, Maintenance, 08/23/19 10:28:00 EST Start Date: 08/23/19 Status: Ordered ibuprofen 800 mg oral tablet 800 mg, 1, tablet, By Mouth, Every 8 hours, PRN, # 30 tablet, Refills 0, Tot. Refills 0, Maintenance, Pain , Moderate, 03/15/20 11:54:00 EDT, Route to Pharmacy Electronically, [facility] #[id number], 178.5, cm, 03/15/20 11:34:00 EDT, Height, 87.7... Start Date: 03/15/20 Status: Ordered ibuprofen 800 mg oral tablet 800 mg, 1, tablet, By Mouth, 3 times a day, # 270 tablet, Refills 0, Maintenance, 08/23/19 10:29:00EST Start Date: 08/23/19 Status: Ordered MELATONIN 3MG TABLETS NATROL By Mouth, Daily at bedtime, PRN Start Date: 02/22/20 Status: Ordered Methadone = 85 mg, By Mouth, Daily, 0 Refills, Maintenance, 08/23/19 10:28:00 EST, Partial fill upon patient request Start Date: 08/23/19 Status: Ordered methimazole 10 mg oral tablet 10 mg, 1, tablet, By Mouth, Daily, # 30 tablet, Refills 2, Tot. Refills 2, Maintenance, 07/03/22 21:41:00 EST, Route to Pharmacy Electronically, [facility]/pharmacy #[id number], Partial fill upon patient request if the prescription is for a schedule II opioid drug... Start Date: 07/03/22 Stop Date: 10/01/22 Status: Ordered MiraLax oral powder for reconstitution = 17 Gm, By Mouth, 3 times a day, dissolve in water before taking, # 255 Gm, 0 Refills, Maintenance, 02/27/20 12:31:00 EDT, REC Powder, [facility] #[id number], 17 Gm By Mouth 3 times a day,Instr:dissolve in water before taking, 182.88, cm, ... Start Date: 02/27/20 Status: Ordered montelukast 10 mg oral tablet 10 mg, 1, tablet, By Mouth, Daily Start Date: 02/22/20 Status: Ordered prazosin 2 mg oral capsule 1 capsule = 2 mg, By Mouth, Daily at bedtime, # 270 capsule, 0 Refills, Maintenance, 08/23/19 10:27:00 EST, Capsule Start Date: 08/23/19 Status: Ordered simethicone 80 mg oral tablet 1 tablet = 80 mg, Chew, 3 times a day after meals and bedtime, PRN for gas, # 40 tablet, 0 Refills,Maintenance, 02/27/20 12:31:00 EDT, Tablet, [facility] #[id number], 182.88, cm, 02/27/20 10:19:00 EDT, Height, 87.1, kg, 02/27/20 10:19:00 EDT, . Start Date: 02/27/20 Status: Ordered traZODone 50 mg oral tablet 50 mg, 1, tablet, By Mouth, Daily at bedtime, Refills 0, Maintenance, 02/22/20 9:04:00 EDT Start Date: 02/22/20 Status: Ordered Tylenol 325 mg oral tablet 325 mg, 1, tablet, By Mouth, Every 4 hours, PRN, # 48 tablet, Refills 0, Tot. Refills 0, Maintenance, for pain, 02/27/20 12:30:00 EDT, Route to Pharmacy Electronically, [facility] #[id number], 182.88, cm, 02/27/20 10:19:00 EDT, Height, 87.1, kg,... Start Date: 02/27/20 Stop Date: 03/05/20 Status: Ordered Ventolin HFA 108 mcg/inh inhalation aerosol with adapter 2 puffs, Inhalation, Every 6 hours, PRN Wheezing/Shortness of Breath Start Date: 02/22/20 Status: Ordered Problem List Condition Confirmation Course Effective Dates Status H ealth Status Informant Asthma Confirmed Active Chronic headache disorder Confirmed Active Cigarette smoker Confirmed Active Cocaine use disorder, severe, in sustained remission Confirmed Active Family history of alcohol use disorder: paternal grandmother Confirmed Active Family history of opioid use disorder: brother Confirmed Active Thyromegaly Confirmed Active History of sleep apnea Confirmed Active Lack of adequate sleep Confirmed Active Overweight Confirmed Active Pelvic pain Confirmed Active History of psychiatric hospitalization Confirmed Active Opioid use disorder, severe, in early remission, on 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; intranasal] Confirmed Active Convulsions Confirmed Active Follow-up examination after gynecological surgery Confirmed Active Results Radiology Reports * Exam Date Time Procedure Performing Provider Status 10/17/22 5:52 PM Knee 1 or 2 Views Right Mauricio Mak; Gilda (Verified) Notes: (Knee 1 or 2 Views Right) Reason For Exam: with Pain;Trauma RESULT: Knee 1 or 2 Views Right Knee 1 or 2 Views Right, 2 views Refer to EMR; Hx of Present Illness: Pt reports she had a seizure today, was taken off Keppra 3 weeks ago because 'ulises believed that it was making her seizures worse ( per patient) . Pt states today she was incontinent .Pt fell w SZ c o right knee pain. Denies any Covid symptoms.; Reason: Trauma; with Pain; Clinical Question(s): Fracture; Special Instructions: This is a protocol film and ra COMPARISON: None. FINDINGS: No acute fracture or malalignment. Moderate knee joint effusion. IMPRESSION: No fracture. Moderate knee joint effusion. WSN: [id number] Ordering Physician: Sonali Shahid Dictated By: Jack Perales MD Dictated Date/Time: 10/17/22 5:57 pm Reviewed By: Jack Perales MD Signed By: Jack Perales MD Signed Date/Time: 10/17/22 5:57 pm Transcribed By: MERLENE Transcribed Date/Time: 10/17/22 5:56 pm Vital Signs Most recent to oldest [Reference Range]: 1 2 3 Height 183 cm (10/17/22 4:57 PM) Weight 86 kg (10/17/22 4:57 PM) Oxygen Saturation [94-100 %] 97 % (10/17/22 6:02 PM) 97 % (10/17/22 4:51 PM) 97 % (10/17/22 4:36 PM) Pulse Rate [55-90 bpm] 70 bpm (10/17/22 6:02 PM) 82 bpm (10/17/22 4:51 PM) 77 bpm (10/17/22 4:36 PM) Blood Pressure [90-138/55-84 mm Hg] 99/68mm Hg (10/17/22 6:02 PM) 101/76mm Hg (10/17/22 4:51 PM) Respiratory Rate [16-30 br/min] 18 br/min (10/17/22 4:51 PM) 18 br/min (10/17/22 4:36 PM) Temperature [96.8-100.4 DegF] 97.5 DegF (10/17/22 6:02 PM) 97.7 DegF (10/17/22 4:51 PM) Mode of Delivery (Oxygen) Room air (10/17/22 4:51 PM) Room air (10/17/22 4:36 PM) Blood pressure sites Arm, left (10/17/22 6:02 PM) Arm, left (10/17/22 4:51 PM) Temperature Route Oral (10/17/22 6:02 PM) Oral (10/17/22 4:51 PM) Dry Weight 86 kg (10/17/22 4:57 PM) Social History Social History Type Response Smoking Status 5-9 cigarettes (betw een 1/4 to 1/2 pack)/day in last 30 days entered on: 08/23/19 Sex XR Knee - right 1 or 2 Views * [facility] , CIS S: TRANSCRIBE Jack Perales MD: VERIFY Event Display: Result: Authored Date: [id number] Knee 1 or 2 Views Right, 2 views Refer to EMR; Hx of Present Illness: Pt reports she had a seizure today, was taken off Keppra [address]'s believed that it was making her seizures worse ( per patient) . Pt states today she was incontinent .Pt fell w SZ c o right knee pain. Denies any Covid symptoms.; Reason: Trauma; with Pain; Clinical Question(s): Fracture; Special Instructions: This is a protocol film and ra COMPARISON: None. FINDINGS: No acute fracture or malalignment. Moderate knee joint effusion. IMPRESSION: No fracture. Moderate knee joint effusion. WSN: [id number] Ordering Physician: Sonali Shahid Dictated By: Jack Perales MD Dictated Date/Time: 10/17/22 5:57 pm Reviewed By: Jack Perales MD Signed By: Jack Perales MD Signed Date/Time: 10/17/22 5:57 pm Transcribed By: MERLENE Transcribed Date/Time: 10/17/22 5:56 pm Patient Care team information Care Team Personnel Name: Silvina Oliveira NP Position: Reference Physician Member Role: PCP Address: Address: [address] [place] [id number]- Care Team Related Persons Name: ISATU BUCKNER Address: home [address] [place] [address] Name: TU ANNE Address: home [address] [place] [id number]
--- OUTSIDE RECORDS SUMMARY | 2023-08-02 10:19 | XMS_ITS | Continuity of Care Document ---
Author Name Unknown Organization [facility] ter Address [address] [place] [id number] Care Team Providers Care Public Health Epidemiologist Name Role Phone Tee EDGER RUNNER, Silvina Primary Care Physician Encounter [facility] [place] [place] Date(s): 09/30/22 - 10/02/[address] [address] Discharge Disposition: A-D/C Home Attending Physician: Austen Garces MD Admitting Physician: Austen Garces MD Referring Physician: Johnathan MORRIS , Marilyn Chadwick Allergies, Adverse Reactions, Alerts Substance Reaction Severity [...] 03/15/20 11:54:00 EDT, Route to Pharmacy Electronically, [facility] #[id number], 178.5, cm, 03/15/20 11:34:00 EDT, Height, 87.7... [...] patient request Start Date: 08/23/19 Status: Ordered Methadone Liquid 120 mg, Solution, By Mouth, verified with [facility], 10/02/22 9:00:00 EDT Start Date: 10/02/22 Stop Date: 10/02/22 Status: Completed methimazole 10 mg oral tablet 10 mg, 1, tablet, By Mouth, Daily, # 30 tablet, Refills 2, Tot. Refills 2, Maintenance, 07/03/22 21:41:00 EST, Route to Pharmacy Electronically, [facility]/pharmacy #[id number], Partial fill upon patient request if the prescription is for a schedule II opioid drug... Start Date: 07/03/22 Stop Date: 10/01/22 Status: Ordered MiraLax oral powder for reconstitution = 17 Gm, By Mouth, 3 times a day, dissolve in water before taking, # 255 Gm, 0 Refills, Maintenance, 02/27/20 12:31:00 EDT, REC Powder, [facility] #[id number], 17 Gm By Mouth 3 times a [...] tablet, 0 Refills,Maintenance, 02/27/20 12:31:00 EDT, Tablet, [facility] #[id number], 182.88, cm, 02/27/20 10:19:00 EDT, Height, 87.1, kg, 02/27/20 10:19:00 EDT, Start Date: 02/27/20 Status: Ordered traZODone 50 mg oral tablet 50 mg, 1, tablet, By Mouth, Daily at bedtime, Refills 0, Maintenance, 02/22/20 9:04:00 EDT Start Date: 02/22/20 Status: Ordered Tylenol 325 mg oral tablet 325 mg, 1, tablet, By Mouth, Every 4 hours, PRN, # 48 tablet, Refills 0, Tot. Refills 0, Maintenance, for pain, 02/27/20 12:30:00 EDT, Route to Pharmacy Electronically, [facility] #[id number], 182.88, cm, 02/27/20 10:19:00 EDT, Height, 87.1, [...] Follow-up examination after gynecological surgery Confirmed Active Vital Signs Most recent to oldest [Reference Range]: 1 2 3 Oxygen Saturation [94-100 %] 98 % (10/02/22 11:06 AM) 97 % (10/02/22 7:38 AM) 93 % *L* (10/02/22 5:03 AM) Pulse Rate [55-90 bpm] 60 bpm (10/02/22 11:06 AM) 57 bpm (10/02/22 7:38 AM) 68 bpm (10/02/22 5:03 AM) Blood Pressure [90-138/55-84 mm Hg] 100/66mm Hg (10/02/22 11:06 AM) 99/53mm Hg (10/02/22 7:38 AM) 106/64mm Hg (10/02/22 5:03 AM) Respiratory Rate [16-30 br/min] 20 br/min (10/02/22 11:06 AM) 20 br/min (10/02/22 7:38 AM) 18 br/min (10/02/22 6:53 AM) Temperature [96.8-100.4 DegF] 97 DegF (10/02/22 11:06 AM) 97.7 DegF (10/02/22 7:38 AM) 98.7 DegF (10/02/22 5:03 AM) Mode of Delivery (Oxygen) Room air (10/02/22 11:06 AM) Room air (10/02/22 7:38 AM) Room air (10/02/22 5:03 AM) Blood pressure sites Arm, right (10/02/22 11:06 AM) Arm, right (10/02/22 7:38 AM) Arm, left (10/02/22 5:03 AM) Temperature Route Temporal (10/02/22 11:06 AM) Temporal (10/02/22 7:38 AM) Temporal (10/02/22 5:03 AM) Social History Social History Type Response Smoking Status 5-9 cigarettes (betw een 1/4 to 1/2 pack)/day in last 30 days entered on: 08/23/19 Sex Admission evaluation note * [place]: MODIFY, MODIFY, PERFORM Event Display: Admission Note Authored Date: [id number] Patient: ??SITA, CHI ? Age:??47 Years?Sex:??Female?:??1975?? Chief Complaint/Reason for Consultation elective VEEG History of Present Illness 47-year-old right-handed female with a prior history of??epilepsy,??bipolar disorder,??cocaine and heroin abuse??sober??last 4 months,??reported cerebral??palsy from??forceps delivery, who presents for characterization of??increasing??possible seizure.?? The patient is referred??by ??Johnathan??for video EEG.?? Outside??records are scanned into [facility].?? The patient??has a history of??seizure disorder since age 8??where she??reports having??generalized tonic- clonic seizures as well as??other partial episodes of euphoria followed by??loss of consciousness.?? Patient??is currently on??Keppra 500 mg twice daily and??Depakote 500 mg twice daily.?? The patient was being transitioned to??lamotriginebut currently is not taking??while??doing??video EEG.? She relays the episodes of euphria with LOC and nausea and urinary incontinence have been increasing to a couple times a week since being clean and sober.?? she relays that stress sometimes triggers spells. ?? Prior work-up per outside records; Ambulatory EEG at [facility] August 2021???left temporal sharps EEG??routine at Dr. Mann's office???normal MRI brain without??at [facility]August [place]???okay Ammonia??42???65 Review of Systems no CP/SOB Objective Vital Signs?? Temperature: 97.5 DegF (09/30/22 11:47:00) Temperature Route: Temporal (09/30/22 11:47:00) Pulse Rate: 78 bpm (09/30/22 11:47:00) Respiratory Rate: 20 br/min (09/30/22 11:47:00) Systolic Blood Pressure: 120 mm Hg (09/30/22 11:47:00) Diastolic Blood Pressure: 59 mm Hg (09/30/22 11:47:00) Blood pressure sites: Arm, right (09/30/22 11:47:00) Mean Arterial Pressure: 79 mm Hg (09/30/22 11:47:00) Pulse Pressure: 61 mm Hg (09/30/22 11:47:00) Oxygen Saturation: 98 % (09/30/22 11:47:00) Mode of Delivery (Oxygen): Room air (09/30/22 11:47:00) Early Warning Score: 2 (09/30/22 12:48:24) ? Intake/Output? 09/30 10:28 09/30 07:00 09/29 07:00 09/28 07:00 09/27 07:00 ?? 09/30 14:43 09/30 14:43 09/30 06:59 09/29 06:59 09/28 06:59 Intake ?240 ?240 ?0 ?0 ?0 Output ?0 ?0 ?0 ?0 ?0 Net Total ?240 ?240 ?0 ?0 ?0 ? Urine Count ?1 ?1 ?0 ?0 ?0 ? Physical Exam Gen- NAD?? CV- RRR no m/r/g lungs- CTA bilaterally abd- soft, NT, ND, positive BS extremities- no edema or eccymosis ?? neuro- mentation- alert and oriented x person, place, time, and disposition. ??able to name simple objectssuch as watch and eyeglasses. ??able to follow simple and complex commands. ??no aphasia. ??good fund of knowledge. ??ST and LT memory intact. ?? eyes- PERRLA, EOMI, no visual field deficits hearing- intact face- symmetric, sensation intact speech- clear, fluent shrug- symmetric tongue- midline ?? Motor- good muscle bulk and tone RUE- 5/5 ?? RLE- 5/5 LUE- 5/5 ?LLE- 5/5 ?? sensation-??intact to LT bilaterally ?? coordination- good fnf, heal to dhaliwal, SAUD ?? toes- mute ?? gait-??deferred ?? Assessment/Plan ??47-year-old right-handed female with a prior history of??epilepsy,??bipolar disorder,??cocaine and heroin abuse??sober??last 4 months,??reported cerebral??palsy from??forceps delivery, who presentsfor characterization of??increasing??possible seizure.?? The patient is referred??by ??Johnathan??for video EEG.?? Outside??records are scanned into [facility].?? The patient??has a history of??seizure disorder since age 8??where she??reports having??generalized tonic- clonic seizures as well as??other partial episodes of euphoria followed by??loss of consciousness.?? Patient??is currently on??Keppra 500mg twice daily and??Depakote 500 mg twice daily.?? The patient was being transitioned to??lamotrigine but currently is not taking??while??doing??video EEG.? She relays the episodes of euphria withLOC and nausea and urinary incontinence have been increasing to a couple times a week since being clean and sober.?? she relays that stress sometimes triggers spells. ?? Prior work-up per outside records; Ambulatory EEG at [facility] August 2021???left temporal sharps EEG??routine at Dr. Mann's office???normal MRI brain without??at [facility]August 2019???okay Ammonia??42???65 ? spells of euphoria/LOC ? sz vs PNES ?? REC ?epilepsy orderset ?continue outpatient aeds for now VPA 500mg BID and Keppra 500 BID ?VEEG ?continue OP meds, ?? substance abuse- on methadone 120 am, 90 mg pm, verified with lizeth rowell RN ?? hyperthyroidism continue methimazole ?? RLS- continue mirapex ?? full code ?? d/w dr Garces ?? Histories Allergies Allergies ?(Active and Proposed Allergies Only) penicillins? (Severity: Unknown severity, Onset: Unknown) ?Reactions: C/O: itching amoxicillin? (Severity: Unknown severity, Onset: Unknown) ?Reactions: rash ? Past Medical History/Problem List Active Problems??(18) Adult attention deficit hyperactivity disorder Asthma Bipolar II disorder, hypomanic/manic episodes predominant Chronic headache disorder Cigarette smoker Cocaine use disorder, severe, in sustained remission Convulsions Family history of alcohol use disorder: paternal grandmother Family history of opioid use disorder: brother Follow-up examination after gynecological surgery History of psychiatric hospitalization History of sleep apnea Lack of adequate sleep Opioid use disorder, severe, in early remission, on 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; intranasal] Overweight Pelvic pain Post-traumatic stress disorder Thyromegaly ? Past Surgical History Dilation and curettage Rotator cuff repair MALATHI ?? Social History Alcohol Details:??Use: Past. ??Frequency: Several times per day. Details:??Use: Never. Employment/School Details:??Status: Unemployed. Exercise Details:??Self assessment: Good condition. Home/Environment Details:??Living situation: Home/Independent. ??Lives with: Children, Spouse. Nutrition/Health Details:??Diet: Regular, Low sodium. Sexual Details:??Sexually involved in last 6 months: No. ??Gender identity: Identifies as female. Substance Abuse Details:??Use: Past. ??Type: Cocaine, Heroin. Details:??Use: Never. Tobacco Details:??Use: 5-9 cigarettes (between 1/4 to 1/2 pack)/day in last 30 days. ? Family History Mother: Cancer of breast ? Medications Home Medications Acetaminophen (Tylenol 325 mg oral tablet)?325?Milligram?1?tablet?By Mouth?Every 4 hours?as needed?for 7?Days?for pain Albuterol (Ventolin HFA 108 mcg/inh inhalation aerosol with adapter)?2?puff(s)?Inhalation?Every 6 hours?as needed?Wheezing/Shortness of Breath Divalproex Sodium (Depakote)?500?Milligram?By Mouth?2 times a day Gabapentin (gabapentin 300 mg oral capsule)?300?Milligram?1?capsule?By Mouth?3 times a day Ibuprofen (ibuprofen 800 mg oral tablet)?800?Milligram?1?tablet?By Mouth?3 times a day Ibuprofen (ibuprofen 800 mg oral tablet)?800?Milligram?1?tablet?By Mouth?Every 8 hours?as needed?Pain , Moderate levETIRAcetam (levETIRAcetam 500 mg oral tablet)?1?tab(s)?500?Milligram?By Mouth?2 times a day [place]?300?Milligram?By Mouth?2 times a day Methadone?85?Milligram?By Mouth?Daily Methimazole (methimazole 10 mg oral tablet)?10?Milligram?1?tablet?By Mouth?Daily?for 30?Days Miscellaneous Rx (MELATONIN 3MG TABLETS NATROL)?By Mouth?Daily at bedtime?as needed?Sleep Montelukast (montelukast 10 mg oral tablet)?10?Milligram?1?tablet?By Mouth?Daily Polyethylene Glycol 3350 (MiraLax oral powder for reconstitution)?17?gram?By Mouth?3 times a day?dissolve in water before taking Prazosin (prazosin 2 mg oral capsule)?1?capsule?2?Milligram?By Mouth?Daily at bedtime Simethicone (simethicone 80 mg oral tablet)?1?tab(s)?80?Milligram?Chew?3 times a day after meals and bedtime?as needed?for gas Trazodone (traZODone 50 mg oral tablet)?50?Milligram?1?tablet?By Mouth?Daily at bedtime ? Inpatient Medications Medications (15) Active SCHEDULED: (7) Divalproex 500 mg Tablet (Depakote Tablet) ??500 mg, By Mouth, 2 times a day Keppra 500mg Tablet (Keppra 500 mg oral tablet) ??500 mg, By Mouth, 2 times a day Melatonin 3 mg Tablet (Melatonin Tablet) ??3 mg, By Mouth, Daily at bedtime Methadone 30mg/15mL UD Solution (Methadone Liquid) ??90 mg 45 mL, By Mouth, Daily at bedtime Methadone 30mg/15mL UD Solution (Methadone Liquid) ??120 mg 60 mL, By Mouth, Daily Methimazole 10 mg Tablet (methimazole 10 mg oral tablet) ??10 mg, By Mouth, Daily Trazodone 50 mg Tablet (traZODone 50 mg oral tablet) ??100 mg, By Mouth, Daily at bedtime CONTINUOUS: (0) PRN: (8) Acetaminophen 325 mg Tablet (Acetaminophen Tablet) ??650 mg, By Mouth, Every 4 hours Albuterol 90mcg/Inhalation Inhaler HFA (Ventolin 90 mcg Inhaler) ??180 mcg 2 puffs, Inhalation, Every 6 hours Docusate Sodium 100 mg Capsule (Docusate Sodium Capsule) ??200 mg 2 capsule, By Mouth, Daily at bedtime HydrOXYzine Pamoate 25mg Capsule (HydrOXYzine HCL Tablet) ??25 mg, By Mouth, Every 6 hours Lorazepam 2 mg Inj Syringe (LORazepam Inj) ??2 mg, IV Push Slowly, Once Magnesium Hydroxide 8% Susp UD (Milk of Magnesia Liquid) ??30 mL, By Mouth, Daily nalOXONE ??400mcg/mL Inj (nalOXONE Inj) ??0.2 mg 0.5 mL, IV Push, Every 5 minutes Ondansetron 2mg/mL Inj (2mL Vial) (Ondansetron Inj) ??4 mg, IV Push, 2 times a day ? Results Recent Labs TOXICOLOGY/TDM Levetiracetam Level 16.60 mg/L ()?? 09/30/2022 11:11 ? Abnormal Labs ?? TOXICOLOGY/TDM ??Levetiracetam Level ??16.60 mg/L () ??09/30/2022 11:11 ? Note: Critical results are displayed in red. ? * Austen Garces MD: PERFORM Event Display: Admission Note Authored Date: Attending PA/EDGER RUNNER Attestation:??I have seen and evaluated this patient in conjunction with the EDGER RUNNER/PA.??I have discussed the case and its management with the PA/EDGER RUNNER as documented in the PA/EDGER RUNNER note.? * Ajay Harrison: PERFORM Event Display: Admission Note Authored Date: [id number] changed title Note * Event Display: Cardiac Rhythm Strips Authored Date: * Event Display: Cardiac Rhythm Strips Authored Date: * Keara Neville RN: PERFORM Event Display: Discharge/Transfer Note Hospital Authored Date: Nursing Discharge Note Entered On: 10/02/2022 15:33 EDT Performed On: 10/02/2022 15:30 EDT by Keara Neville RN Nursing Discharge Note 2 Discharge Time : 10/02/2022 15:30 EDT Discharge Level of Care at Discharge : Home/Senior Care/Foster Care Patient Left Unit Via : Ambulatory Patient Accompanied Off Unit with : Other: adoption counselor DC Instructions Provided & Signed by Pt : Yes Patient Understands D/C Instructions : Yes Verbalized Understanding of D/C Plan By : Patient Patient Instructions Discharge Signed : Yes Discharge Comments : All d/c instructions explained and given, pt able to verbalize understanding of all instructions given utilizing the teachback method, ie meds, med schedule, f/u appt, when to call MD or go to ED, all pt home own meds given back to pt, last dose letter (Comment: obtained from Ajay Navarrete and given to the patient. All belonging at bedside sent withpatient. [Keara Neville RN - 10/02/2022 15:30 EDT] ) Did Pt have Specialty Bed or Wound Vac : No Keara Neville RN - 10/02/2022 15:30 EDT * Silvina DELA CRUZ, Ajay Oakley: PERFORM Event Display: Discharge/Transfer Note Hospital Authored Date: Patient: ??SITA, CHI ? Age:??47 Years?Sex:??Female?:??1975?? Patient Information Discharge Location: [facility] Primary Care Physician: Silvina Oliveira NP Admit Date/Time: 09/30/22 10:28 Discharge Disposition Discharge Disposition: Home: No Services Discharge Diagnosis Convulsions (R56.9) ?? _ Discharge Medications Acetaminophen (Tylenol 325 mg oral tablet)?325?Milligram?1?tablet?By Mouth?Every 4 hours?as needed?for 7?Days?for pain Albuterol (Ventolin HFA 108 mcg/inh inhalation aerosol with adapter)?2?puff(s)?Inhalation?Every 6 hours?as needed?Wheezing/Shortness of Breath Divalproex Sodium (Depakote)?500?Milligram?By Mouth?2 times a day Gabapentin (gabapentin 300 mg oral capsule)?300?Milligram?1?capsule?By Mouth?3 times a day Ibuprofen (ibuprofen 800 mg oral tablet)?800?Milligram?1?tablet?By Mouth?3 times a day Ibuprofen (ibuprofen 800 mg oral tablet)?800?Milligram?1?tablet?By Mouth?Every 8 hours?as needed?Pain , Moderate Methadone?85?Milligram?By Mouth?Daily Methimazole (methimazole 10 mg oral tablet)?10?Milligram?1?tablet?By Mouth?Daily?for 30?Days Miscellaneous Rx (MELATONIN 3MG TABLETS NATROL)?By Mouth?Daily at bedtime?as needed?Sleep Montelukast (montelukast 10 mg oral tablet)?10?Milligram?1?tablet?By Mouth?Daily Polyethylene Glycol 3350 (MiraLax oral powder for reconstitution)?17?gram?By Mouth?3 times a day?dissolve in water before taking Prazosin (prazosin 2 mg oral capsule)?1?capsule?2?Milligram?By Mouth?Daily at bedtime Simethicone (simethicone 80 mg oral tablet)?1?tab(s)?80?Milligram?Chew?3 times a day after meals and bedtime?as needed?for gas Trazodone (traZODone 50 mg oral tablet)?50?Milligram?1?tablet?By Mouth?Daily at bedtime ? Medications Started none Medications Discontinued kemedardora Allergies Allergies ?(Active and Proposed Allergies Only) penicillins? (Severity: Unknown severity, Onset: Unknown) ?Reactions: C/O: itching amoxicillin? (Severity: Unknown severity, Onset: Unknown) ?Reactions: rash ? Future Appointments f/u Dr Mann [facility] Course ??47-year-old right-handed female with a prior history of??epilepsy,??bipolar disorder,??cocaine and heroin abuse??sober??last 4 months,??reported cerebral??palsy from??forceps delivery, who presentsfor characterization of??increasing??possible seizure.?? The patient is referred??by ??Johnathan??for video EEG.?? Outside??records are scanned into [facility].?? The patient??has a history of??seizure disorder since age 8??where she??reports having??generalized tonic- clonic seizures as well as??other partial episodes of euphoria followed by??loss of consciousness.?? Patient??is currently on??Keppra 500mg twice daily and??Depakote 500 mg twice daily.?? The patient was being transitioned to??lamotrigine but currently is not taking??while??doing??video EEG.? She relays the episodes of euphoria with LOC and nausea and urinary incontinence have been increasing to a couple times a week since being clean and sober.?? she relays that stress sometimes triggers spells. ?? Prior work-up per outside records; Ambulatory EEG at [facility] August 2021???left temporal sharps EEG??routine at Dr. Mann's office???normal MRI brain without??at [facility]August 2019???okay Ammonia??42???65 ?? Patient was admitted on Thursday??per??epilepsy??monitoring protocol.?? The patient was continued ontheir??Keppra??and Depakote.?? Patient was currently not taking??lamotrigine.?? Patient was not sleep deprived the first night and??had typical 1 spell??overnight which she told me was typical for her of euphoria and??dizziness??with some confusion.?? She later backtracked and said this was not a typical spell. ??There was no EEG correlate.?? Thursday night??the patient had??typical spell at 1130 as well as??5 AM??which did not have any EEG correlate.?? No generalized tonic-clonic seizures although the patient says she rarely has those at baseline.?? The patient had been stopped on her Keppra??the second day and we will??keep that off??given??these??euphoric spells??do not appear to be epileptic in??etiology.?? We educated patient??about the results??at bedside had??and told her to follow-up with her neurologist??as an outpatient. ?? She was on telemetry??during stay and she had some bradycardia??down into the 40s while sleeping??but was never symptomatic??with low heart rate.?? She also had some pauses but no pathologic arrhythmias. ?? EEG prelim multifocal excess slowing ?? COMMENT: ??None. Objective Assessment and Plan ? Vital Signs?? Temperature: 97.7 DegF (10/02/22 07:38:00) Temperature Route: Temporal (10/02/22 07:38:00) Pulse Rate: 57 bpm (10/02/22 07:38:00) Respiratory Rate: 20 br/min (10/02/22 07:38:00) Systolic Blood Pressure: 99 mm Hg (10/02/22 07:38:00) Diastolic Blood Pressure:??53 mm Hg??Low (10/02/22 07:38:00) Blood pressure sites: Arm, right (10/02/22 07:38:00) Mean Arterial Pressure: 68 mm Hg (10/02/22 07:38:00) Pulse Pressure: 46 mm Hg (10/02/22 07:38:00) Oxygen Saturation: 97 % (10/02/22 07:38:00) Mode of Delivery (Oxygen): Room air (10/02/22 07:38:00) Early Warning Score: 3 (10/02/22 07:39:01) ? . Physical Exam Gen- NAD?? CV- RRR no m/r/g extremities- no edema or eccymosis ?? neuro- mentation- alert and oriented x person, place, time, and disposition. ??able to name simple objectssuch as watch and eyeglasses. ??able to follow simple and complex commands. ??no aphasia. ??good fund of knowledge. ??ST and LT memory intact. ?? eyes- PERRLA, EOMI, no visual field deficits hearing- intact face- symmetric, sensation intact speech- clear, fluent shrug- symmetric tongue- midline ?? Motor- good muscle bulk and tone RUE- 5/5 ?? RLE- 5/5 LUE- 5/5 ?LLE- 5/5 ?? sensation-??intact to LT bilaterally ?? coordination- good fnf, heal to dhaliwal, SAUD ? Consultants none Pending Results COVID-19 (2019 Novel Coronavirus) PCR ordered on 10/02/2022 Lamotrigine Level ordered on 09/30/2022 Post Discharge Care Discharge ?Today, ??10/02/22 12:47:00 EDT Home Health Face to Face ^HomeHealthFTF Results Discharge Labs HEME OTHER Hold Lavender Top SPECIMEN DISCARDED AFTER 24 HOURS. ()?? 10/02/2022 06:58 ? TOXICOLOGY/TDM Valproic Level 43.5 mg/L (Low)?? 10/02/2022 07:01 Levetiracetam Level 16.60 mg/L ()?? 09/30/2022 11:11 ?? VIROLOGY COVID-19 by RT-PCR NEGATIVE ()?? 10/01/2022 09:46 ? 25??minutes spent on discharge * Keara Neville RN: PERFORM, MODIFY Event Display: Patient Education/Instruction Authored Date: Inpatient Adult Discharge Instructions [place] [id number] Name: TETO BUCKNER : 1975 Visit: 09/30/2022 10:28:00 Current Date: 10/02/2022 14:53 Account: [id number] Inpatient Adult Discharge Instructions We would like to thank you for allowing us to assist you with your healthcare needs. The following includes patient education materials and information regarding your injury/illness. Our entire staffstrives to provide an excellent experience for our patients and their families. PLEASE ENSURE YOU FOLLOW-UP PER THE INSTRUCTIONS BELOW! ?? YOUR OPINION IS IMPORTANT TO US! Please complete the survey you may receive by mail or email. Your feedback will be used to make improvements to the healthcare experiences of our patients and their families. Surveys are administered by [employer]. ?? If further treatment with your primary care physician or another doctor is recommended, it is important for you to keep the appointment. Call your primary care physician or return to the Emergency Department immediately if your condition worsens, fails to improve, or new symptoms develop. If you need to find a doctor, you can call [facility] [employer] for a referral at [phone] or toll free at [phone] [email or web address] ([phone]) or log in to [email or web address].. ?? You can view and manage your care through the patient portal or by using a health care kayden of your choosing. [employer] is a website that allows you to securely view your medical information including your hospital discharge summary, office visit summaries, medications and follow-up visits. You can also request appointments, renew medications, and request access to your medical information using a health care kayden of your choosing, or just ask a question. You can enroll at [email or web address] or register during your next office visit. You have been discharged from [facility], Patient Care Unit: D5A. If you have any questions regarding these instructions after you leave, please call us and we will be happy to assist you. [facility] Your Care Team Attending Physician Austen Garces MD Discharging Providers Silvina DELA CRUZ, Ajay Oakley Reason for Admission SEIZURES 5 DAY VEEG D5A Your Diagnosis Convulsions Tests Performed Below is a partial list of the tests performed during your hospitalization. You may have had other tests and procedures not included in this list. Please discuss all test results with your provider. COVID-19 (2019 Novel Coronavirus) PCR COVID-19 (NOVEL CORONAVIRUS), PCR Depakote Level HOLD LAVENDER TUBE Levetiracetam Level Primary Care Provider Silvina Oliveira NP Advance Directive Health Care Proxy on File Yes - Health Care Proxy Discharge Vitals Temperature: 97 DegF Pulse Rate: 60 bpm Respiratory Rate: 20 br/min Systolic Blood Pressure: 100 mm Hg Diastolic Blood Pressure: 66 mm Hg Oxygen Saturation: 98 % Studies Pending All tests and labs ordered during this hospital stay have been completed unless listed below. Please discuss all pending results with your provider listed above in these instructions. ?? Lamotrigine Level What to do next Instructions From Your Doctor Discharge Orders Discharge Medications TETO BUCKNER :1975 Visit Date:09/30/2022 Medications: Please continue your medications until treatment is completed or stopped by your provider. Medications not listed below should be discontinued. Discuss any questions related to medications with your provider. What How Much When Why Instructions Next Dose Unchanged Acetaminophen (Tylenol 325 mg oral tablet) 1 tab(s) Oral Every 4 hours as needed for for pain Duration: 7 Days Follow as directed Unchanged Albuterol (Ventolin HFA 108 mcg/ inh inhalation aerosol with adapter) 2 puff(s) Inhalation Every 6 hours as needed for Wheezing/Shortness of Breath Follow as directed Unchanged Divalproex Sodium (Depakote) 500 Milligram Oral Twice a day 10/02/22 9 PM Unchanged Gabapentin (gabapentin 300 mg oral capsule) 1 capsule Oral 3 times a day 10/02/22 9 PM Unchanged Ibuprofen (ibuprofen 800 mg oral tablet) 1 tab(s) Oral 3 times a day 10/02/22 9 PM Unchanged Ibuprofen (ibuprofen 800 mg oral tablet) 1 tab(s) Oral Every 8 hours as needed for Pain , Moderate Post-op pain Follow as directed Unchanged Methadone 85 Milligram Oral Daily 10/03/22 AM Unchanged Methimazole (methimazole 10 mg oral tablet) 1 tab(s) Oral Daily Duration: 30 Days 10/03/22 AM Unchanged Miscellaneous Rx (MELATONIN 3MG TABLETS NATROL) Oral Daily at Bedtime as needed for Sleep Follow as directed Unchanged Montelukast (montelukast 10 mg oral tablet) 1 tab(s) Oral Daily 10/03/22 AM Unchanged Polyethylene Glycol 3350 (MiraLax oral powder for reconstitution) 17 gram Oral 3 times a day dissolve in water before taking ?? 10/02/22 9 PM Unchanged Prazosin (prazosin 2 mg oral capsule) 1 capsule Oral Daily at Bedtime 10/02/22 9 PM Unchanged Simethicone (simethicone 80 mg oral tablet) 1 tab(s) Chew 3 times a day after meals and bedtime as needed for for gas Follow as directed Unchanged Trazodone (traZODone 50 mg oral tablet) 1 tab(s) Oral Daily at Bedtime 10/02/22 9 PM ?? What How Much When Comments Stop Taking levETIRAcetam (levETIRAcetam 500 mg oral tablet) 1 tab(s) Oral Twice a day Stop Taking [place] 300 Milligram Oral Twice a day Test Results Below is a partial list of the most recent Laboratory test results done prior to this discharge. You may have had other tests and procedures not included in this list. Please discuss all test resultswith your provider. COVID-19 (2019 Novel Coronavirus) PCR (10/02/2022) ???COVID-19 PCR Specimen Source - NASAL???COVID-19 PCR Result - NEGATIVE COVID-19 (NOVEL CORONAVIRUS), PCR (10/01/2022) ???COVID-19 by RT-PCR - NEGATIVE Depakote Level (10/02/2022) ???Valproic Level - 43.5 mg/L HOLD LAVENDER TUBE (10/02/2022) ???Hold Lavender Top - SPECIMEN DISCARDED AFTER 24 HOURS. Levetiracetam Level (09/30/2022) ???Levetiracetam Level - 16.60 mg/L Allergies (NKA means No Known Allergies) amoxicillin??(rash) penicillins??(C/O: itching) Problems Active Problems??(18) Adult attention deficit hyperactivity disorder?? Asthma?? Bipolar II disorder, hypomanic/manic episodes predominant?? Chronic headache disorder?? Cigarette smoker?? Cocaine use disorder, severe, in sustained remission?? Convulsions?? Family history of alcohol use disorder: paternal grandmother?? Family history of opioid use disorder: brother?? Follow-up examination after gynecological surgery?? History of psychiatric hospitalization?? History of sleep apnea?? Lack of adequate sleep?? Opioid use disorder, severe, in early remission, on 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; intrana?? Overweight?? Pelvic pain?? Post-traumatic stress disorder?? Thyromegaly?? Education Materials Below is the list of Educational Leaflet Providered with your Discharge Instructions. Recurrent Seizure (Adult)?? Valuables and Belongings I fully understand and agree that [facility] accepts no responsibility for all my personal property including clothing, toilet articles, radios, jewelry, dentures, hearing aids, rings, money, or any other property that is in my possession or is brought to me after admission. I understand certain valuables may be placed in a hospital safe for a short period of time. I understand that the hospital is not liable for loss or damage due to accident, fire, or other natural occurrence while said property is in the safe. I accept full responsibility for any personal property that I keep with me, and will not hold the hospital responsible in case of loss or disappearance. I acknowledge that i have been encouraged to send valuables and belongings home. ?? Review of Valuable and Belonging List: With patient Date for Pt to Sign Valuables/Belongings: 09/30/22 12:48:00 ?? Other Discharge Information ? Pulmonary Rehab Status?? Pulmonary Rehab Discharge Status?? Respiratory Rate: 20 br/min ? Common Emergency Awareness Tips IS IT A STROKE? Act FAST and Check for these signs: FACE Does the face look uneven? ARM Does one arm drift down? SPEECH Does their speech sound strange? TIME Call at any sign of stroke ?? Heart Attack Signs Chest discomfort: Most heart attacks involve discomfort in the center of the chest and lasts more than a few minutes, or goes away and comes back. It can feel like uncomfortable pressure, squeezing, fullness or pain. Discomfort in upper body: Symptoms can include pain or discomfort in one or both arms, back, neck, jaw or stomach. Shortness of breath: With or without discomfort. Other signs: Breaking out in a cold sweat, nausea, or lightheaded. Remember, MINUTES DO MATTER. If you experience any of these heart attack warning signs, call to get immediate medical attention! ?? Smoking can increase your chances of developing chronic health problems and can cause harmful effects to other family members in your house. If you smoke, you are strongly encouraged to quit. Please call [facility] [employer] [facility] at [phone] or 2-019-[employer] (9324) or log in to [email or web address] for referrals to smoking cessation programs. ?? The National Suicide Prevention Hotline is available 02/02 if you or someone you know needs to find a reason to keep living. By calling 4-077-812-[employer] (2400) you'll be connected to a skilled, trained counselor at a crisis center in your area. INPATIENT DISCHARGE INSTRUCTIONS SIGNATURE PAGE TETO BUCKNER Location:[facility] Registration Date and Time:09/30/2022 10:28 EDT Primary Care Physician: Silvina Oliveira NP, I TETO BUCKNER, have received the above patient education materials/instructions and have verbalized understanding. If ambulance or transport services are being used I further acknowledge being givena choice of service. ?? If you need to contact me, please call me at this number: . Patient/Mine Environmental Engineer Name: Patient/Mine Environmental Engineer Signature: Relationship to Patient: Witness Name/Signature: Date: * Keara Neville RN: PERFORM Event Display: Patient Education Leaflets Authored Date: [id number] Recurrent Seizure (Adult) ?? [id number] Recurrent Seizure (Adult) You have had another seizure today. A common cause of seizures that keep happening (recurrent seizures) is missing doses of seizure medicine. But sometimes seizures are hard to control even when you take the medicine correctly. If this is the case for you, your healthcare provider may need to increase your dosage. Or you may need to add or change to another medicine. Home care Follow these tips when caring for yourself at home. ??? Seizures aren???t predictable. So don't do anything that might cause danger to you or other people if you have another seizure. Until the seizures are under good control, take these safety steps:o Don???t drive, ride a motorcycle, or ride a bike. o Don???t operate dangerous equipment such as power tools. o Take showers instead of baths. o Don???t swim or climb ladders, trees, or roofs. ??? Tell your close friends and relatives about your seizure. Teach them what to do for you if it happensagain. ??? If medicine was prescribed to prevent seizures, take it exactly as directed. Missing doses will increase the risk of having another seizure. ??? If you miss a dose, take the missed dose assoon as you remember. If it's almost time for your next dose, skip the missed dose. Restart the medicine at your next scheduled time. Don???t take extra medicine to make up for the missed dose. ??? Wear a Medic-Alert bracelet to let emergency staff know about your condition. ??? Follow a regular sleep schedule so that you get at least 6 to 8 hours of restful sleep every night. This is especially important when you're sick with a cold or flu or another type of infection. ??? Alcohol and illegal drugs can cause you to have more seizures. Ask your provider if you are allowed to drink any alcohol at all. For future seizures, if you're alone: ??? If you feel a seizure coming on, lie down on a bed or on the floor with something soft under your head. This will keep you from falling. Lie on your left side, not on your back. This will let fluid drain out of your mouth and prevent choking. Be sure you are clear of any objects that might injure you during the seizure. Call for help if there is time. For future seizures, if someone is with you: ??? The person should help you get into a safe position and call for help. The person shouldn???t try to force anything in your mouth once the seizure begins. This could harm your teeth or jaw. ?? Follow-up care Follow up with your healthcare provider. Keep a seizure calendar to record how often you have a seizure. If you're being started on anti-seizure medicine, ask your provider if you need additional control. Seizure medicine can affect how well control pills work, and you could become . Some women who take seizure medicine also need certain vitamins. Tell your provider if you plan on getting or if you become . Don't drink alcohol until your provider tells you it???s OK. Each state has different laws that say when someone with seizures is allowed to drive. Some states require that a seizure disorder to be reported to the state. They don't allow you to drive until your seizures are controlled. Talk with your provider to see if this applies to you. ?? Important Don't drive until you've followed up with your healthcare provider and you've been cleared to drive. ?? When to get medical care Call your healthcare provider right away??if any of these occur: ??? Seizures happen more often or last longer than normal ??? A seizure lasts more than 5 minutes ??? You don???t wake up between seizures ??? Confusion that lasts more than 30 minutes after a seizure ??? Injury during a seizure ??? Fever of 100.4??F (38.0??C) or higher, or as advised by your provider ??? Unusual grouchiness, drowsiness, or confusion ??? Stiff or painful neck ??? Headache that gets worse? Last Reviewed Date: 2021 ?? [id number] The [employer]. All rights reserved. This information is not intended as a substitute for professional medical care. Always follow your healthcare professional's instructions. ?? Hospital Progress note * Celine Summers RN: PERFORM, SIGN, VERIFY Event Display: Progress Note Hospital Authored Date: [id number] Patient: TETO BUCKNER Age: 47 years Sex: Female : 1975 Associated Diagnoses: None Author: Celine Summers RN Findings Problem Related to Alteration in Neurological : Alteration in Neurological Function/new 10/02/2022 9:00 EDT Alteration in Neuro status Related to Seizure, Other: VEEG Goals & Outcomes, Neurological Lab studies/diagnostic tests within pt specific limits, Pt is safe with transfers & activities, Pt will be discharged without infection, Pt will be hemodynamically stable, Pt will be Neurologically stable, Pt will maintain intact skin integrity, Pt will remainfree from injury, Pt/caregiver will receive psychosocial support as needed, Pt/caregiver will stateunderstanding of plan/goals of care, Pt/caregiver will state understanding of the D/C plan, Pt willbe free from complications r/t seizure activity, Pt will be seizure controlled, Pt will remain freefrom injury post seizure activity, Pt will return to baseline after post ictal phase, Pt/caregiver will state understanding of home management Interventions, Neurological Assess/monitor neurologic status, Assess/monitor VS per unit standards & prn, Call/Report variances in assessments to provider, Collaborate w/ provider to implement appropriate guidelines, Collaborate with provider re: medication regime, Document & Monitor O2 Sats; Administer O2 as ordered, If no bowel movement in 3 days activate bowel regime, Maintain normothermia, report temp >101.5 F, Maintain patient safety if unsteady gait, Maintain strict intake & output, Monitor Fluid & Electrolytes, Serum Osmolarity, Monitor for headaches, nausea, vomiting, Monitor speech fluency, aphasia, word finding difficulty, Physical assessment per unit standards,5 day Video EEG monitoring protocol, Assess & monitor for seizure activity, During seizure activ ity maintain pt safety & privacy, Initiate & maintain Seizure Precautions, Monitor oxygenation/ventilation during seizure activity, Monitor/maintain airway patency BH Goals/Interventions, Neurological Yes Neurological, Problem Start 09/30/2022 10:30 Reviewed plan with, Neurological Patient Patient Progression, Neurological Pt progressing according to plan . Nursing Data Neurological Data. : Neurological Data. 10/02/2022 8:00 EDT Neurological Symptoms History of seizures Level of Consciousness Full Consciousness Orientated to person, place, time Person, Place, Time, Event Facial Symmetry Intact Characteristics of Speech Clear and normal Strength LUE 5-Active movement against gravity & full resistance Strength RUE 5-Active movement against gravity & full resistance Strength LLE 5-Active movement against gravity & full resistance Strength RLE 5-Active movement against gravity & full resistance Tone LUE Normal Tone RUE Normal Tone LLE Normal Tone RLE Normal Sensation LUE Intact Sensation RUE Intact Sensation LLE Intact Sensation RLE Intact Movement LUE Spontaneous, To command Movement RUE Spontaneous, To command Movement LLE Spontaneous, To command Movement RLE Spontaneous, To command Response Eye Opening Spontaneously Motor Response-Adult Obeys commands Verbal Response-Adult Oriented and converses [place] Coma Score 15 Neuro WNL except Eyes and Movements Conjugate gaze: Move in same direction at same speed Memory Intact Swallow - Neuro Normal . Evaluation Patient is A&Ox4, follows commands, speech is clear and appropriate. Face symmetrical +PERRLA FENTON 5/5. Denies N/T, dizziness, changes in vision. Endorsed mild SRINIVASAN which she declined PRN medications for. On SZ precautions for 5 day VEEG, no SZ-like activity noted. NSR on telemetry, +PP, denies chest pain/SOB. LS clear on RA no s/s respiratory distress. +BSx4 LBM 10/01 continent ambulating to BR w/ steady gait. Pt d/c home, IV removed with tip intact no s/s infection. Safety maintained please see CIS for further assessment. . * Austen Garces MD: PERFORM Event Display: Progress Note Hospital Authored Date: INTRODUCTION: The patient is a 47 year old referred for a question of seizures. MEDICATIONS: Not listed. CONDITION OF RECORDING: The patient underwent 2 day of digitally recorded video EEG monitoring beginning on 09/30/2022 at 2:27:31 PM and ending on 10/02/2022 at 08:27:28 AM, recorded with the patient awake, drowsy and asleep, reviewed with longitudinal and coronal bipolar montages, as well as average referential and anterior temporal montages with all electrodes applied in accordance with the International 10-20 System. Seizure and spike detection software was utilized throughout the recording. A single channel EKG lead was recorded as well to help identify artifact. The entire record was reviewed with special attention to button presses and diary entries. The patient was sleep deprived on the second night of recording. Any AEDs were tapered or stopped during the admission. INTERICTAL EEG DESCRIPTION: Cerebral electrical activity with the patient awake was characterized by a well organized background with a 9 Hz 10-20 uV posterior dominant reactive alpha rhythm. Multifocal 25-50 uV theta and delta activity was admixed. Lower voltage frontal beta activity was seen. Drowsiness was characterized by an increase in slow eye movements and a fragmentation of the alpha rhythm. Stage II sleep was recorded during which time synchronous and symmetric sleep spindles, vertex waves and K complexes were seen. Stage III sleep was seen with the expected increase in delta activity. ICTAL EEG AND VIDEO DESCRIPTION: Day # 1: No button press events, no seizures. IMPRESSION: The patient underwent 2 days of continuous ad terminal makeup operator video EEG monitoring was recorded with the patient awake, drowsy and asleep, during which time no epileptiform activity, seizures or persistent focal asymmetries occurred. The recording was abnormal due to the intermittent multifocal e xcessive slowing, a nonspecific indicator of mild to moderate subacute or chronic cerebral dysfunction. COMMENT: None. * Rebeka Navarro RN: PERFORM, SIGN, VERIFY Event Display: Progress Note Hospital Authored Date: [id number] Patient: TETO BUCKNER Age: 47 years Sex: Female : 1975 Associated Diagnoses: None Author: Rebeka Navarro RN Findings Evaluation The patient is aaox4, vss, endorsed headache-prn med given with good effect, Tele-SR, continent of b/b, FENTON, VEEG ongoing, safety maintained.. Patient Care team information Care Team Personnel Name: Silvina Oliveira NP Position: Reference Physician Member Role: PCP Address: Address: [address] [place] [id number]- Care Team Related Persons Name: ISATU BUCKNER Address: home [address] [place] [address] Name: TU ANNE Address: home [address] [place] [id number]
--- OUTSIDE RECORDS SUMMARY | 2023-08-02 10:19 | XMS_ITS | Continuity of Care Document ---
Author Name Unknown Organization [facility] ACCOUNT ADVISOR Oncolog y Address [address] [place] [id number]- Care Team Providers Care Submarine Operator Name Role Phone Tee BAUMANN, Silvina Primary Care Physician Encounter [facility] ACCT R [id number] Date(s): 10/18/19 - 10/28/19 [facility] ACCOUNT ADVISOR Oncology [address] [place] [id number] [facility] Attending Physician: Lamin Dowling Admitting Physician: AdmLamin alvarez Referring Physician: AdmtrLamin Allergies, Adverse Reactions, Alerts Substance Reaction Severity Status amoxicillin rash Active penicillins Active Medications Depakote By Mouth, 3 times a day, 0 Refills, Maintenance, 08/23/19 10:27:00 EST Start Date: 08/23/19 Status: Ordered gabapentin 300 mg oral capsule 300 mg, 1, capsule, By Mouth, Daily at bedtime, Refills 0, Maintenance, 08/23/19 10:28:00 EST Start Date: 08/23/19 Status: Ordered ibuprofen 800 mg oral tablet 800 mg, 1, tablet, By Mouth, 3 times a day, # 270 tablet, Refills 0, Maintenance, 08/23/19 10:29:00EST Start Date: 08/23/19 Status: Ordered [place] By Mouth, Refills 0, Maintenance, 08/23/19 10:27:00 EST Start Date: 08/23/19 Status: Ordered Methadone By Mouth, 0 Refills, Maintenance, 08/23/19 10:28:00 EST, Partial fill upon patient request Start Date: 08/23/19 Status: Ordered prazosin 2 mg oral capsule 1 capsule = 2 mg, By Mouth, 3 times a day, # 270 capsule, 0 Refills, Maintenance, 08/23/19 10:27:00EST, Capsule Start Date: 08/23/19 Status: Ordered SEROquel 50 mg oral tablet 1 tablet = 50 mg, By Mouth, 2 times a day, # 180 tablet, 0 Refills, Maintenance, 08/23/19 10:28:00 EST, Tablet Start Date: 08/23/19 Status: Ordered Ventolin HFA 108 mcg/inh inhalation aerosol with adapter 2 puffs, Inhalation, Every 4 hours, PRN for wheezing, # 18 Gm, 0 Refills, Maintenance, 06/26/17 15:36:24, Aerosol Start Date: 06/26/17 Status: Ordered Problem List Condition Effective Dates Status Health Status Inform ant Asthma(Confirmed) Active Bipolar disease, chronic(Confirmed) Active Cigarette smoker(Confirmed) Active Substance addiction(Confirmed) Active [place]Marie(Confirmed) Active Hx of psychiatric hospitalization(Confirmed) Active Severe bipolar I disorder wi th depression(Confirmed) Active Social History Social History Type Response Smoking Status 5-9 cigarettes (betw een 1/4 to 1/2 pack)/day in last 30 days entered on: 08/23/19 Sex
--- OUTSIDE RECORDS SUMMARY | 2023-08-02 10:19 | XMS_ITS | Continuity of Care Document ---
Author Name Unknown Organization [facility] ter Address [address] [place] [id number]- Care Team Providers Care Telemarketing Sales Representative Name Role Phone Tee BAUMANN, Silvina Primary Care Physician Encounter [facility] Date(s): 08/26/19 - 08/26/[address] [id number]- [facility] Attending Physician: Jose Elias Ibanez MD Allergies, Adverse Reactions, Alerts Substance Reaction [...] 08/23/19 10:29:00EST Start Date: 08/23/19 Status: Ordered [place] By Mouth, Refills 0, Maintenance, 08/23/19 10:27:00 [...]
--- OUTSIDE RECORDS SUMMARY | 2023-08-02 10:19 | XMS_ITS | Continuity of Care Document ---
Author Name Unknown Organization [facility] ter Address [address] [place] [address]- Care Team Providers Care Service Order Dispatcher Name Role Phone Tee BAUMANN, Silvina Primary Care Physician Encounter [facility] [place] Date(s): 07/31/22 - 07/31/[address] [address]- Discharge Disposition: A-D/C Home Attending Physician: Todd Love MD Admitting Physician: Todd Love MD Referring Physician: Not on Staff, Referring MD Allergies, Adverse Reactions, Alerts Substance Reaction Severity Status amoxicillin rash Active penicillins C/O: itching Active Medications Depakote = 500 mg, By Mouth, [...] 03/15/20 11:54:00 EDT, Route to Pharmacy Electronically, [facility] #[id number], 178.5, cm, 03/15/20 11:34:00 EDT, Height, 87.7... Start Date: 03/15/20 Status: Ordered ibuprofen 800 mg oral tablet 800 mg, 1, tablet, By Mouth, 3 times a day, # 270 tablet, Refills 0, Maintenance, 08/23/19 10:29:00EST Start Date: 08/23/19 Status: Ordered [place] 300 mg, By Mouth, 2 times a day, Refills 0, Maintenance, 08/23/19 10:27:00 EST Start Date: 08/23/19 Status: Ordered MELATONIN 3MG [...] 07/03/22 21:41:00 EST, Route to Pharmacy Electronically, [facility]/pharmacy #[id number], Partial fill upon patient request if the prescription is for a schedule II opioid drug... Start Date: 07/03/22 Stop Date: 10/01/22 Status: Ordered MiraLax oral powder for reconstitution = 17 Gm, By Mouth, 3 times a day, dissolve in water before taking, # 255 Gm, 0 Refills, Maintenance, 02/27/20 12:31:00 EDT, REC Powder, [facility] #[id number], 17 Gm By Mouth 3 times a [...] tablet, 0 Refills,Maintenance, 02/27/20 12:31:00 EDT, Tablet, [facility] #[id number], 182.88, cm, 02/27/20 10:19:00 EDT, Height, 87.1, [...] 02/27/20 12:30:00 EDT, Route to Pharmacy Electronically, [facility] #[id number], 182.88, cm, 02/27/20 10:19:00 EDT, Height, 87.1, [...] therapy [oxycodone & heroin; intranasal] Confirmed Active Follow-up examination after gynecological surgery Confirmed Active Vital Signs Most recent to oldest [Reference Range]: 1 2 Oxygen Saturation [94-100 %] 96 % (07/31/22 2:20 AM) 100 % (07/31/22 2:16 AM) Pulse Rate [55-90 bpm] 62 bpm (07/31/22 2:20 AM) Blood Pressure [90-138/55-84 mm Hg] 99/4 4mm Hg (07/31/22 2:20 AM) Respiratory Rate [16-30 br/min] 20 br/mi n (07/31/22 2:20 AM) Temperature [96.8-100.4 DegF] 98.3 DegF (07/31/22 2:20 AM) Liters per Minute 2 L/min (07/31/22 2:16 AM) Mode of Delivery (Oxygen) Room air (07/31/22 2:20 AM) Nasal cannula (07/31/22 2:16 AM) Blood pressure sites Arm, right (07/31/22 2:20 AM) Temperature Route Oral (07/31/22 2:20 AM) Social History Social History Type Response Smoking Status 5-9 cigarettes (betw een 1/4 to 1/2 pack)/day in last 30 days entered on: 08/23/19 Sex Patient Care team information Care Team Personnel Name: Silvina Oliveira NP Position: Reference Physician Member Role: PCP Address: Address: [address] [place] [id number]- Name: Ying Meyer NP Position: [facility] Associate Professional Member Role: ED Physician Dining Service Inspector Address: Address: [address] [place] [phone]- Name: Dennis Knutson Position: [facility] ED RN W/OE and Tasks Member Role: Patient Care Provider Name: Marti Bal Position: [facility] ED TA [facility] Member Role: Coil Tester Name: Todd Love MD Position: [facility] ED Medicine MD Member Role: Admitting Physician Address: Address: [address] [place] [address]- Name: Nela Mcnamara RN Position: [facility] ED RN W/OE and Tasks Member Role: Patient Care Provider Care Team Related Persons Name: ISATU BUCKNER Address: home [address] [place] [address] Name: TU ANNE Address: home [address] [place] [id number]
--- OUTSIDE RECORDS SUMMARY | 2023-08-02 10:19 | XMS_ITS | Continuity of Care Document ---
Author Name Unknown Organization [facility] Address [address] [place] [address]- Care Team Providers Care Head Grinder Name Role Phone Tee BAUMANN, Silvina Primary Care Physician [phone] Encounter [facility] [place] Date(s): 05/30/20 - 08/10/20 [facility] [address] [place] [address]- Attending Physician: Carlee Patterson MD Referring Physician: Jose Elias Ibanez MD Allergies, Adverse [...] 03/15/20 11:54:00 EDT, Route to Pharmacy Electronically, [facility] #[id number], 178.5, cm, 03/15/20 11:34:00 EDT, Height, 87.7... Start Date: 03/15/20 Status: Ordered ibuprofen 800 mg oral tablet 800 mg, 1, tablet, By Mouth, 3 times a day, # 270 tablet, Refills 0, Maintenance, 08/23/19 10:29:00EST Start Date: 08/23/19 Status: Ordered [place] 300 mg, By Mouth, 2 times a day, Refills 0, Maintenance, 08/23/19 10:27:00 EST Start Date: 08/23/19 Status: Ordered MELATONIN 3MG TABLETS NATROL By Mouth, Daily at bedtime, PRN Start Date: 02/22/20 Status: Ordered Methadone = 85 mg, By Mouth, Daily, 0 Refills, Maintenance, 08/23/19 10:28:00 EST, Partial fill upon patient request Start Date: 08/23/19 Status: Ordered MiraLax oral powder for reconstitution = 17 Gm, By Mouth, 3 times a day, dissolve in water before taking, # 255 Gm, 0 Refills, Maintenance, 02/27/20 12:31:00 EDT, REC Powder, [facility] #[id number], 17 Gm By Mouth 3 times a [...] tablet, 0 Refills,Maintenance, 02/27/20 12:31:00 EDT, Tablet, [facility] #[id number], 182.88, cm, 02/27/20 10:19:00 EDT, Height, 87.1, [...] 02/27/20 12:30:00 EDT, Route to Pharmacy Electronically, [facility] #[id number], 182.88, cm, 02/27/20 10:19:00 EDT, Height, 87.1, kg,... Start Date: 02/27/20 Stop Date: 03/05/20 Status: Ordered Ventolin HFA 108 mcg/inh inhalation aerosol with adapter 2 puffs, Inhalation, Every 6 hours, PRN Wheezing/Shortness of Breath Start Date: 02/22/20 Status: Ordered Problem List Condition Effective Dates Status Health Status Inform ant Asthma(Confirmed) Active Chronic headache disorder(Confirmed) Active Cigarette smoker(Confirmed) Active Cocaine use disorder, severe , in sustained remission(Confirmed) Active Family history of alcohol us e disorder: paternal grandmother(Confirmed) Active Family history of opioid use disorder: brother(Confirmed) Active Thyromegaly(Confirmed) Active History of sleep apnea(Confirmed) Active Lack of adequate sleep(Confirmed) Active Overweight(Confirmed) Active Pelvic pain(Confirmed) Active History of psychiatric hospitalization(Confirmed) Active Opioid use disorder, severe, in early remission, on 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; intranasal](Confirmed) Active Follow-up examination after gynecological surgery(Confirmed) Active Social History Social History Type Response Smoking Status 5-9 cigarettes (betw een 1/4 to 1/2 pack)/day in last 30 days entered on: 08/23/19 Sex
--- OUTSIDE RECORDS SUMMARY | 2023-08-02 10:19 | XMS_ITS | Continuity of Care Document ---
Author Name Unknown Organization [facility] Address [address] [place] [address]- Care Team Providers Care Vehicle Trimmer Name Role Phone Tee BAUMANN, Silvina Primary Care Physician [place] [facility] [place]03[place] - 07/03/[address] [address]- Encounter Diagnosis Graves' disease(Final) - 07/03/22 Thyroiditis(Final) - 07/03/22 Discharge Disposition: A-D/C Home Attending Physician: Asa Gallegos DO Admitting Physician: Asa Gallegos DO Referring Physician: Not on Staff, Referring MD [...] 03/15/20 11:54:00 EDT, Route to Pharmacy Electronically, [facility] #[id number], 178.5, cm, 03/15/20 11:34:00 EDT, Height, 87.7... Start Date: 03/15/20 Status: Ordered ibuprofen 800 mg oral tablet 800 mg, 1, tablet, By Mouth, 3 times a day, # 270 tablet, Refills 0, Maintenance, 08/23/19 10:29:00EST Start Date: 08/23/19 Status: Ordered [place] 300 mg, By Mouth, 2 times a [...] 07/03/22 21:41:00 EST, Route to Pharmacy Electronically, [facility]/pharmacy #[id number], Partial fill upon patient request if the prescription is for a schedule II opioid drug... Start Date: 07/03/22 Stop Date: 10/01/22 Status: Ordered MiraLax oral powder for reconstitution = 17 Gm, By Mouth, 3 times a day, dissolve in water before taking, # 255 Gm, 0 Refills, Maintenance, 02/27/20 12:31:00 EDT, REC Powder, [facility] #[id number], 17 Gm By Mouth 3 times a [...] tablet, 0 Refills,Maintenance, 02/27/20 12:31:00 EDT, Tablet, [facility] #[id number], 182.88, cm, 02/27/20 10:19:00 EDT, Height, 87.1, [...] 02/27/20 12:30:00 EDT, Route to Pharmacy Electronically, [facility] #[id number], 182.88, cm, 02/27/20 10:19:00 EDT, Height, 87.1, [...] Exam Date Time Procedure Performing Provider Status 07/03/22 6:18 PM US Soft Tissue Head/Neck Bambi Myers; Auth (Verified) Notes: (US Soft Tissue Head/Neck) Reason For Exam: Graves Disease RESULT: US Soft Tissue Head/Neck US Soft Tissue Head/Neck Hx of Present Illness: Pt reports losing 10 lbs in 2 weeks. Pt has been at program and had increased caloric intake and remains losing weight. (see expect). Pt reports trouble swallowing and dizziness with ambulation.; Reason: Graves Disease; Clinical Question(s): Thyroid Mass - Cyst Solid COMPARISON: None FINDINGS: RIGHT THYROID LOBE: 5.2 x 1.6 x 3.3 cm, volume 13.8 cc. Diffusely heterogeneous echotexture. Diffusely increased parenchymal vascularity. A subcentimeter nodule in the interpolar region does not meet TI-RADS criteria for imaging follow-up. LEFT THYROID LOBE: 4.6 x 1.2 x 2.1 cm, volume 5.8 cc. Diffusely heterogeneous echotexture. Diffusely increased parenchymal vascularity. A subcentimeter nodule in the upper pole does not meet TI-RADS criteria for imaging follow-up. ISTHMUS: Thickness: 0.4 cm. IMPRESSION: Heterogeneous thyroid gland with increased vascularity, suggestive of thyroiditis. WSN: [id number] Ordering Physician: Rafael So Dictated By: Bushra Gordon MD Dictated Date/Time: 07/03/22 6:58 pm Reviewed By: Bushra Gordon MD Signed By: Bushra Gordon MD Signed Date/Time: 07/03/22 6:58 pm Transcribed By: MERLENE Transcribed Date/Time: 07/03/22 6:56 pm * Exam Date Time Procedure Performing Provider Status 07/03/22 6:44 PM Chest 2 Views Frontal and Lat Ben Guardado; Gilda (Verified) Notes: (Chest 2 Views Frontal and Lat) Reason For Exam: Unexplained weight loss, smoker;Other: RESULT: Chest 2 Views Frontal and Lat Examination: Chest performed on 07/03/2022. History: Weight loss. Difficulty swallowing Findings: Frontal and lateral views of the chest are compared to a prior study dated 06/26/2017. The cardiac and mediastinal silhouettes are within normal limits. The lungs are clear. The osseous and soft tissue structures are unremarkable. Impression: There is no acute cardiopulmonary disease. WSN: [id number] Ordering Physician: Rafael So Dictated By: Mariela Beltre MD Dictated Date/Time: 07/03/22 6:48 pm Reviewed By: Mariela Beltre MD Signed By: Mariela Beltre MD Signed Date/Time: 07/03/22 6:48 pm Transcribed By: MERLENE Transcribed Date/Time: 07/03/22 6:48 pm Vital Signs Most recent to oldest [Reference Range]: 1 2 Height 180 cm (07/03/22 3:38 PM) 180 cm (07/03/22 3:34 PM) Weight 63.2 kg (07/03/22 3:38 PM) 63.2 kg (07/03/22 3:34 PM) Oxygen Saturation [94-100 %] 98 % (07/03/22 7:30 PM) 98 % (07/03/22 3:34 PM) Pulse Rate [55-90 bpm] 88 bpm (07/03/22 7:30 PM) 79 bpm (07/03/22 3:34 PM) Body Mass Index [18.5-24.99 kg/m2] 19.51 kg/m2 (07/03/22 3:34 PM) Blood Pressure [90-138/55-84 mm Hg] 97/5 3mm Hg (07/03/22 7:30 PM) 93/56mm Hg (07/03/22 3:34 PM) Respiratory Rate [16-30 br/min] 18 br/mi n (07/03/22 7:30 PM) 18 br/min (07/03/22 3:34 PM) Temperature [96.8-100.4 DegF] 98.2 DegF (07/03/22 7:30 PM) 98.5 DegF (07/03/22 3:34 PM) Mode of Delivery (Oxygen) Room air (07/03/22 7:30 PM) Room air (07/03/22 3:34 PM) Temperature Route Temporal (07/03/22 7:30 PM) Temporal (07/03/22 3:34 PM) Dry Weight 63.2 kg (07/03/22 3:38 PM) 63.2 kg (07/03/22 3:34 PM) Social History Social History Type Response Smoking Status 5-9 cigarettes (betw een 1/4 to 1/2 pack)/day in last 30 days entered on: 08/23/19 Sex Note * [employer] , CIS S: TRANSCRIBE Alexsander MORRIS , Mariela M: VERIFY Event Display: Result: Authored Date: [id number] Examination: Chest performed on 07/03/2022. History: Weight loss. Difficulty swallowing Findings: Frontal and lateral views of the chest are compared to a prior study dated 06/26/2017. The cardiac and mediastinal silhouettes are within normal limits. The lungs are clear. The osseous and soft tissue structures are unremarkable. Impression: There is no acute cardiopulmonary disease. WSN: [id number] Ordering Physician: Rafael So Dictated By: Mariela Beltre MD Dictated Date/Time: 07/03/22 6:48 pm Reviewed By: Mariela Beltre MD Signed By: Mariela Beltre MD Signed Date/Time: 07/03/22 6:48 pm Transcribed By: MERLENE Transcribed Date/Time: 07/03/22 6:48 pm US Head and neck soft tissue * [employer] , CIS S: TRANSCRIBE Bushra Gordon MD: VERIFY Event Display: Result: Authored Date: US Soft Tissue Head/Neck Hx of Present Illness: Pt reports losing 10 lbs in 2 weeks. Pt has been at program and had increased caloric intake and remains losing weight. (see expect). Pt reports trouble swallowing and dizziness with ambulation.; Reason: Graves Disease; Clinical Question(s): Thyroid Mass - Cyst Solid COMPARISON: None FINDINGS: RIGHT THYROID LOBE: 5.2 x 1.6 x 3.3 cm, volume 13.8 cc. Diffusely heterogeneous echotexture. Diffusely increased parenchymal vascularity. A subcentimeter nodule in the interpolar region does not meet TI-RADS criteria for imaging follow-up. LEFT THYROID LOBE: 4.6 x 1.2 x 2.1 cm, volume 5.8 cc. Diffusely heterogeneous echotexture. Diffusely increased parenchymal vascularity. A subcentimeter nodule in the upper pole does not meet TI-RADS criteria for imaging follow-up. ISTHMUS: Thickness: 0.4 cm. IMPRESSION: Heterogeneous thyroid gland with increased vascularity, suggestive of thyroiditis. WSN: [id number] Ordering Physician: Rafael So Dictated By: Bushra Gordon MD Dictated Date/Time: 07/03/22 6:58 pm Reviewed By: Bushra Gordon MD Signed By: Ersahin MD, Devrim Signed Date/Time: 07/03/22 6:58 pm Transcribed By: TYB Transcribed Date/Time: 07/03/22 6:56 pm Patient Care team information Care Team Personnel Name: Silvina Oliveira NP Position: Reference Physician Member Role: PCP Address: Address: [address] [place] [phone]- Name: Sam Rosario RN Position: [facility] ED RN W/OE and Tasks Member Role: Patient Care Provider Name: Asa Gallegos DO Position: [facility] Resident Member Role: Admitting Physician Address: Address: [address] [place] [address] Dept [place] [address]- Care Team Related Persons Name: LISSETT KUMAR Name: ISATU BUCKNER Address: [address] [place] [address]
--- OUTSIDE RECORDS SUMMARY | 2023-08-02 10:19 | XMS_ITS | Continuity of Care Document ---
Author Name Unknown Organization [facility] Address [address] [place] [address]- Care Team Providers Care Director Account Management Name Role Phone Silvina Oliveira NP Primary Care Physician En[place] [facility] [place](s): 08/23/19 - 09/02/19 [facility] [address] [place] [phone] [facility] Attending Physician: Lamin Dowling Admitting Physician: AdmLamin alvarez Referring Physician: Admtr, ArChristiano Allergies, Adverse Reactions, Alerts Substance Reaction Severity [...] 08/23/19 10:29:00EST Start Date: 08/23/19 Status: Ordered [place] By Mouth, Refills 0, Maintenance, 08/23/19 10:27:00 [...]
--- OUTSIDE RECORDS SUMMARY | 2023-08-02 10:19 | XMS_ITS | Continuity of Care Document ---
Author Name Unknown Organization [facility] ter Address [address] [place] [id number]- Care Team Providers Care Ground Wood Supervisor Name Role Phone Tee BAUMANN, Silvina Primary Care Physician Encounter [facility] [place] [facility] [place] Date(s): 08/01/22 - 08/01/[address] [address]- Discharge Disposition: A-D/C Home Attending Physician: Anjali Crocker MD Admitting Physician: Anjali Crocker MD Referring Physician: Not on Staff, Referring [...] 03/15/20 11:54:00 EDT, Route to Pharmacy Electronically, [facility] #[id number], 178.5, cm, 03/15/20 11:34:00 EDT, Height, 87.7... Start Date: 03/15/20 Status: Ordered ibuprofen 800 mg oral tablet 800 mg, 1, tablet, By Mouth, 3 times a day, # 270 tablet, Refills 0, Maintenance, 08/23/19 10:29:00EST Start Date: 08/23/19 Status: Ordered [place] 300 mg, By Mouth, 2 times a day, Refills 0, Maintenance, 08/23/19 10:27:00 EST Start Date: 08/23/19 Status: Ordered MELATONIN 3MG TABLETS NATROL By Mouth, Daily at bedtime, PRN Start Date: 02/22/20 Status: Ordered Methadone = 85 mg, By Mouth, Daily, 0 Refills, Maintenance, 08/23/19 10:28:00 EST, Partial fill upon patient request Start Date: 08/23/19 Status: Ordered Methadone Tablet 65 mg, Tablet, By Mouth, Once, STAT, 08/01/22 20:02:00 EST, Stop date 08/01/22 20:02:00 EST Start Date: 08/01/22 Stop Date: 08/01/22 Status: Completed methimazole 10 mg oral tablet 10 mg, 1, tablet, By Mouth, Daily, # 30 tablet, Refills 2, Tot. Refills 2, Maintenance, 07/03/22 21:41:00 EST, Route to Pharmacy Electronically, [facility] #[id number], Partial fill upon patient request if the prescription is for a schedule II opioid drug... Start Date: 07/03/22 Stop Date: 10/01/22 Status: Ordered MiraLax oral powder for reconstitution = 17 Gm, By Mouth, 3 times a day, dissolve in water before taking, # 255 Gm, 0 Refills, Maintenance, 02/27/20 12:31:00 EDT, REC Powder, [facility] #[id number], 17 Gm By Mouth 3 times a day,Instr:dissolve in water before taking, 182.88, cm, ... Start Date: 02/27/20 Status: Ordered montelukast 10 mg oral tablet 10 mg, 1, tablet, By Mouth, Daily Start Date: 02/22/20 Status: Ordered ondansetron 4 mg oral tablet, disintegrating 1 tablet = 4 mg, By Mouth, Every 8 hours, PRN Nausea & Vomiting, # 10 tablet, 0 Refills, Acute 08/04/22 0:00:00 EST, 08/01/22 23:05:00 EST, Tablet, [facility]acy #[id number], Partial fill upon patient request if the prescription is for a schedule II opioid d... Start Date: 08/01/22 Stop Date: 08/04/22 Status: Ordered prazosin 2 mg oral capsule 1 capsule = 2 mg, By Mouth, Daily at bedtime, # 270 capsule, 0 Refills, Maintenance, 08/23/19 10:27:00 EST, Capsule Start Date: 08/23/19 Status: Ordered simethicone 80 mg oral tablet 1 tablet = 80 mg, Chew, 3 times a day after meals and bedtime, PRN for gas, # 40 tablet, 0 Refills,Maintenance, 02/27/20 12:31:00 EDT, Tablet, [facility] #[id number], 182.88, cm, 02/27/20 10:19:00 EDT, Height, 87.1, [...] 02/27/20 12:30:00 EDT, Route to Pharmacy Electronically, [facility] #[id number], 182.88, cm, 02/27/20 10:19:00 EDT, Height, 87.1, [...] 1 2 3 Oxygen Saturation [94-100 %] 97 % (08/01/22 11:32 PM) 96 % (08/01/22 7:02 PM) Pulse Rate [55-90 bpm] 68 bpm (08/01/22 11:32 PM) 78 bpm (08/01/22 7:02 PM) Blood Pressure [90-138/55-84 mm Hg] 123/78mm Hg (08/01/22 11:32 PM) 107/52mm Hg (08/01/22 7:02 PM) Respiratory Rate [16-30 br/min] 14 br/min *L* (08/01/22 11:32 PM) 14 br/min *L* (08/01/22 9:14 PM) 20 br/min (08/01/22 7:02 PM) Temperature [96.8-100.4 DegF] 97 DegF (08/01/22 11:32 PM) 99.3 DegF (08/01/22 7:06 PM) Mode of Delivery (Oxygen) Room air (08/01/22 7:02 PM) Blood pressure sites Arm, left (08/01/22 7:02 PM) Temperature Route Oral (08/01/22 11:32 PM) Oral (08/01/22 7:06 PM) Oral (08/01/22 7:02 PM) Social History Social History Type Response Smoking Status 5-9 cigarettes (betw een 1/4 to 1/2 pack)/day in last 30 days entered on: 08/23/19 Sex Note * Anjali Crocker MD: PERFORM, SIGN, VERIFY Event Display: Patient Education Handout Authored Date: * Anjali Crocker MD: PERFORM Event Display: Patient Education Leaflets Authored Date: Vomiting (Adult) ?? [id number] Vomiting (Adult) Vomiting is a common symptom that may be due to different causes. These include gastroenteritis (stomach flu), food poisoning, and gastritis. Other more serious causes of vomiting may be hard to diagnose early in the illness. That's why it's important to watch for the warning signs listed below. The main danger from repeated vomiting is dehydration. This is because of the loss of water and minerals from the body. When this occurs, your body fluids must be replaced. Home care ??? If symptoms are severe, rest at home for the next 24 hours. ??? Because your symptoms may be from an infection, wash your hands often and well. Use soap and clean, running water or alcohol-based radiation oncology manager to keep from spreading the infection to others. ??? Wash your hands for at least 20 seconds. Scrub all surfaces of your hands, including between your fingers and under your fingernails each time you wash. Humming the Happy Birthday song twice while you wash is an easy way to make sure you've washed for 20 seconds. ??? Wash your hands after using the toilet, before and after preparing food, before eating food, after changing a diaper, cleaning a wound, caring for a sick person, and blowing your nose, coughing, or sneezing. You should also wash your hands after caring for someone who is sick, touching pet food, or treats, and touching an animal, or animal waste. ??? You may use acetaminophen??or NSAID medicines such as ibuprofen or naproxen to control fever, unless another medicinewas prescribed. Talk with your provider before using these medicines if you have chronic liver or kidney disease or ever had a stomach ulcer or digestive bleeding. Never give aspirin to anyone younger than 18 who is ill with a fever. It may cause severe liver damage. Don't use NSAID medicines if you are already taking one for another condition such as arthritis or take aspirin for heart disease or after a stroke. ??? Don't use tobacco or drink alcohol. These may make your symptoms worse. If youhave trouble stopping either substance, ask your provider for treatment resources. ??? If medicinesfor vomiting were prescribed, take as directed. Tell your provider if they don't work within the expected time period. ??? Once vomiting stops, then follow these guidelines: During the first 12 to 24 hours, follow the diet below: ??? Fruit juices. Apple, grape juice, clear fruit drinks, and electrolyte replacement drinks. ??? Beverages. Water, soft drinks without caffeine; mineral water (plain or flavored), and decaffeinated tea and coffee. ??? Soups. Clear broth and bouillon. ??? Desserts. Plain gelatin, ice pops, and fruit juice bars. As you feel better, you may add 6 to 8 ounces of yogurt per day. During the next 24 hours you may add the following to the above: ??? Hot cereal, plain toast, bread, rolls, and crackers ??? Plain noodles, rice, mashed potatoes, and chicken noodle or rice soup ??? Unsweetened canned fruit such as applesauce, bananas. Don't have pineapple or citrus. ??? Limit caffeine and chocolate. No spices or seasonings except salt. During the next 24 hours: Gradually go back to your normal diet, as you feel better and your symptoms lessen. ?? Follow-up care Follow up with your healthcare provider as advised. ?? When to seek medical advice Call your healthcare provider right away if any of these occur: ??? Constant right-sided lower belly pain or increasing general belly pain ??? Continued vomiting (unable to keep liquids down) for 24 hours ??? Vomiting blood or what looks like coffee grounds ??? Swollen belly ??? Frequent diarrhea (more than 5 times a day), or blood (red or black color) or mucus in diarrhea ??? Peeing less than usual or extreme thirst ??? Weakness, dizziness, or fainting ??? Unusually drowsy or confused ??? Fever of 100.4??F (38??C) oral or higher, or as directed by your provider ??? Yellow color of the eyes or skin ??? Other symptoms get worse or you have new symptoms ?? Last Reviewed Date: 2021 ?? [id number] The [employer]. All rights reserved. This information is not intended as a substitute for professional medical care. Always follow your healthcare professional's instructions. ?? * Obi MORRIS, Anjali Ceballos: PERFORM Event Display: Patient Education Leaflets Authored Date: [id number] Unspecified Headache ?? [id number] Headache, Unspecified A number of things can cause headaches. The cause of your headache isn???t clear. But it doesn???t seem to be a sign of any serious illness. Headache affects almost everyone at some time. It's the most common reason people miss days from work or school. You could have a tension headache or a migraine headache. Stress can cause a tension headache. This can happen if you tense the muscles of your shoulders, neck, and scalp without knowing it. If this stress lasts long enough, you may develop a tension headache. It's not clear why migraines occur, but certain things called triggers can raise the risk of having a migraine attack. Migraine triggers may include emotional stress or depression, or by hormone changes during the menstrual cycle. Other triggers include control pills and other medicines, alcohol or caffeine, foods with tyramine such as aged cheese or wine, eyestrain, weather changes, missed meals, and lack of sleep or oversleeping. Other causes of headache include: ??? Viral illness with high fever ??? Head injury with concussion ??? Sinus, ear, or throat infection ??? Dental pain and jaw joint (TMJ) pain More serious but less common causes of headache include stroke, brain hemorrhage, brain tumor, meningitis, and encephalitis. Home care Follow these tips when taking care of yourself at home: ??? Don???t drive yourself home if you were given pain medicine for your headache. Instead, have someone else drive you home. Try to sleep when you get home. You should feel much better when you wakeup. ??? Apply heat to the back of your neck to ease a neck muscle spasm. Take care of a migraine headache by putting an ice pack on your forehead or at the base of your skull. ??? If you have nausea or vomiting, eat a light diet until your headache eases. ??? If you have a migraine headache, use sunglasses when in the daylight or around bright indoor lighting until your symptoms get better. Bright glaring light can make this type of headache worse. Follow-up care Follow up with your healthcare provider, or as advised. Talk with your provider if you have frequent headaches. They can help figure out a treatment plan. By knowing the earliest signs of headache, and starting treatment right away, you may be able to stop the pain yourself. When to seek medical advice Call your healthcare provider right away??if any of these occur: ??? Your head pain suddenly gets worse after sexual intercourse or strenuous activity ??? Your head pain doesn???t get better within 24 hours ??? You aren???t able to keep liquids down (repeated vomiting) ??? Fever of 100.4??F (38??C)or higher, or as directed by your healthcare provider ??? Stiff neck ??? Extreme drowsiness, confusion, or fainting ??? Dizziness or dizziness with spinning sensation (vertigo) ??? Weakness in an armor leg or one side of your face ??? You have trouble talking or seeing Last Reviewed Date: 2020 ?? [id number] [employer]. All rights reserved. This information is not intended as a substitute for professional medical care. Always follow your healthcare professional's instructions. ?? * Obi MORRIS, Anjali Ceballos: PERFORM Event Display: Patient Education Leaflets Authored Date: [id number] Recurrent Seizure (Adult) ?? [id number] Recurrent Seizure (Adult) You have had another [...] gets worse? Last Reviewed Date: 2021 ?? [id number] [employer]. All rights reserved. This information is not intended as a substitute for professional medical care. Always follow your healthcare professional's instructions. ?? Patient Care team information Care Team Personnel Name: Silvina Oliveira NP Position: Reference Physician Member Role: PCP Address: Address: [address] [place] [id number]- Name: *[facility], ED Attending Position: [facility] ED Attendings Patient Name: Anjali Crocker MD Position: [facility] ED Medicine MD Member Role: Admitting Physician Address: Address: [address] [place] [address] [place] [address]- Name: Rosalva Bernstein Position: [facility] ED RN W/OE and Tasks Member Role: Patient Care Provider Name: Halima Hammonds Position: [facility] ED TA [facility] Care Team Related Persons Name: ISATU BUCKNER Address: home [address] [place] [address] Name: TU ANNE Address: home [address] [place] [id number]
--- OUTSIDE RECORDS SUMMARY | 2023-08-02 10:19 | XMS_ITS | Continuity of Care Document ---
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 Refills 0, Maintenance, 02/27/20 12:30:00 EDT, Route to Pharmacy Electronically, [facility] #[id number], 182.88, cm, 02/27/20 10:19:00 EDT, Height, 87.1, kg, 02/27/20 10:19:... Start Date: 02/27/20 Stop Date: 03/05/20 Status: Ordered [place] 300 mg, By Mouth, 2 times a [...] Refills, Maintenance, 02/27/20 12:31:00 EDT, REC Powder, [facility] #[id number], 17 Gm By Mouth 3 times a day,Instr:dissolve in water before taking, 182.88, cm, ... Start Date: 02/27/20 Status: Ordered montelukast 10 mg oral tablet 10 mg, 1, tablet, By Mouth, Daily Start Date: 02/22/20 Status: Ordered morphine 30 mg oral tablet, immediate release 1 tablet = 30 mg, By Mouth, Every 4 hours, PRN as needed for pain, for 7 days, # 24 tablet, 0 Refills, Acute 03/12/20 12:28:00 EDT, 03/05/20 12:28:00 EDT, Tablet, [facility] #[id number], Partialfill upon patient request; *no further refills afte... Start Date: 03/05/20 Stop Date: 03/12/20 Status: Ordered prazosin 2 mg oral capsule 1 capsule = 2 mg, By Mouth, Daily at bedtime, # 270 capsule, 0 Refills, Maintenance, 08/23/19 10:27:00 EST, Capsule Start Date: 08/23/19 Status: Ordered simethicone 80 mg oral tablet 1 tablet = 80 mg, Chew, 3 times a day after meals and bedtime, PRN for gas, # 40 tablet, 0 Refills,Maintenance, 02/27/20 12:31:00 EDT, Tablet, [facility] #[id number], 182.88, cm, 02/27/20 10:19:00 EDT, Height, 87.1, kg, 02/27/20 10:19:00 EDT, Dr... Start Date: 02/27/20 Status: Ordered traZODone 50 mg oral tablet 50 mg, 1, tablet, By Mouth, Daily at bedtime, Refills 0, Maintenance, 02/22/20 9:04:00 EDT Start Date: 02/22/20 Status: Ordered Tylenol 325 mg oral tablet 325 mg, 1, tablet, By Mouth, Every 4 hours, PRN, # 48 tablet, Refills 0, Tot. Refills 0, Maintenance, for pain, 02/27/20 12:30:00 EDT, Route to Pharmacy Electronically, [facility] 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
--- OUTSIDE RECORDS SUMMARY | 2023-08-02 10:19 | XMS_ITS | Continuity of Care Document ---
Author Name Unknown Organization [facility] ter Address [address] [place] [id number]- Care Team Providers Care Certified Family Mediator Name Role Phone Tee BAUMANN, Silvina Primary Care Physician Encounter [facility] [place] Date(s): 02/27/20 - 02/27/[address] [address] Discharge Disposition: A-D/C Home Attending Physician: Jose Elias Ibanez MD Admitting Physician: Jose Elias Ibanez MD Referring Physician: Jose Elias Ibanez MD [...] 02/27/20 12:30:00 EDT, Route to Pharmacy Electronically, [facility] #[id number], 182.88, cm, 02/27/20 10:19:00 EDT, Height, 87.1, kg, 02/27/20 10:19:... Start Date: 02/27/20 Stop Date: 03/05/20 Status: Ordered [place] 300 mg, By Mouth, 2 times a [...] Refills, Maintenance, 02/27/20 12:31:00 EDT, REC Powder, [facility] #[id number], 17 Gm By Mouth 3 times a day,Instr:dissolve in water before taking, 182.88, cm, ... Start Date: 02/27/20 Status: Ordered montelukast 10 mg oral tablet 10 mg, 1, tablet, By Mouth, Daily Start Date: 02/22/20 Status: Ordered morphine 30 mg oral tablet, immediate release 1 tablet = 30 mg, By Mouth, Every 4 hours, PRN as needed for pain, for 7 days, # 48 tablet, 0 Refills, Acute 03/05/20 12:28:00 EDT, 02/27/20 12:28:00 EDT, Tablet, [facility] #[id number], Partialfill upon patient request, 182.88, cm, 02/27/20 10:... Start Date: 02/27/20 Stop Date: 03/05/20 Status: Ordered prazosin 2 mg oral capsule 1 capsule = 2 mg, By Mouth, Daily at bedtime, # 270 capsule, 0 Refills, Maintenance, 08/23/19 10:27:00 EST, Capsule Start Date: 08/23/19 Status: Ordered simethicone 80 mg oral tablet 1 tablet = 80 mg, Chew, 3 times a day after meals and bedtime, PRN for gas, # 40 tablet, 0 Refills,Maintenance, 02/27/20 12:31:00 EDT, Tablet, [facility] #[id number], 182.88, cm, 02/27/20 10:19:00 EDT, Height, 87.1, [...] 02/27/20 12:30:00 EDT, Route to Pharmacy Electronically, [facility] #[id number], 182.88, cm, 02/27/20 10:19:00 EDT, Height, 87.1, [...] 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; 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8 DegF (02/27/20 2:30 PM) 97.5 DegF (02/27/20 1:00 PM) Liters per Minute 2 L/min (02/27/20 2:00 PM) 4 L/min (02/27/20 1:45 PM) 4 L/min (02/27/20 1:30 PM) Mode of Delivery (Oxygen) Room air (02/27/20 4:00 PM) Room air (02/27/20 2:30 PM) Nasal cannula (02/27/20 2:00 PM) Blood pressure sites Arm, right (02/27/20 2:45 PM) Arm, right (02/27/20 2:30 PM) Arm, right (02/27/20 2:15 PM) Temperature Route Temporal (02/27/20 4:00 PM) Temporal (02/27/20 2:30 PM) Temporal (02/27/20 1:00 PM) Dry Weight 87.1 kg (02/27/20 9:42 AM) 79.55 kg (02/22/20 2:31 PM) Dry Weight Obtained Via Standing scale (02/27/20 9:42 AM) Social History Social History Type Response Smoking Status 5-9 cigarettes (betw een 1/4 to 1/2 pack)/day in last 30 days entered on: 08/23/19 Sex
--- OUTSIDE RECORDS SUMMARY | 2023-08-02 10:19 | XMS_ITS | Patient Health Record ---
Author Name Unknown Organization [facility] Address [address] [place] [phone] Care Team Providers Care Wellness Spa Manager Name Role Phone Josse Lantiguaw Primary Care Provider Laila Molina Unavailable [phone] [facility], Nursing Unavailable [phone] Beverly Phan Unavailable [phone] Casionan Eddieliza Unavailable [phone] ALLERGIES Allergen (clinical drug ingredient) Drug/Non Drug Allergy documented on EMR Reaction Allergy Type Onset Date Status amoxicillin amoxicillin anaphylaxis Drug Allergy A ctive Keflex itchy Drug Allergy Active RESULTS Component Value Reference Range Notes CBC Reviewed date:09/04/2022 01:06:05 PM Interpretation:low WBC Performing Lab: Notes/Report: WBC 3.5 4.8-10.8 x10-3/uL RBC 4.6 3.8-4.8 x10-6/uL HEMOGLOBIN 12.5 11.5-16.0 g/dL HEMATOCRIT 38.8 35-47 % MCV 84.7 79-98 fL MCH 27.3 27-32 pg MCHC 32.2 32-37 g/dL RDW 13.2 11-15 % PLT COUNT 210 130-400 x10-3/uL MEAN PLATELET VOLUME 10.4 7-11 fL NRBC % AUTO 0.0 <1 % NRBC # AUTO 0.00 <0.1 x10-3/uL COMPREHENSIVE METABOLIC PANE L Reviewed date:09/04/2022 01:05:14 PM Interpretation:Normal Performing Lab: Notes/Report: GLUCOSE 90 70-100 mg/dL Reference range applicable to fasting specimens only BUN 15 5-25 mg/dL CREAT 0.67 0.5-1.1 mg/dL GLOMERULAR FILTRATION RATE 108 >60 This eGFR result was calculated using the CKD-EPI 2020 Creatinine Equation SODIUM 137 135-145 mEq/L POTASSIUM 5.0 3.5-5.5 mmol/L CHLORIDE 101 96-110 mmol/L CO2 33 21-32 mmol/L ANION GAP 3 3-11 CALCIUM 9.3 8.5-10.5 mg/dL TOTAL PROTEIN 6.3 6.0-8.0 G/dL ALBUMIN 3.3 3.2-5.0 G/dL BILI,TOTAL 0.2 0.0-1.4 mg/dL SGOT 20 10-42 U/L SGPT 40 10-60 U/L ALK PHOS 92 42-121 U/L GLYCOHEMOGLOBIN PROFILE Reviewed date:09/04/2022 01:05:03 PM Interpretation:Normal Performing Lab: Notes/Report: GLYCATED HEMOGLOBIN A1C 5.6 <6.5 % ESTIMATED AVERAGE GLUCOSE 114 LIPID PROFILE Reviewed date:09/04/2022 01:06:34 PM Interpretation:trig-159 Performing Lab: Notes/Report: CHOLESTEROL 158 0-200 mg/dL TRIGLYCERIDES 159 0-150 mg/dL HDL CHOLESTEROL 65 >40 mg/dL LDL CALCULATED 62 0-100 mg/dL TC-HDLC RATIO 2.4 0-4.4 mg/dL TSH CASCADE Reviewed date:09/04/2022 01:06:24 PM Interpretation:Low Performing Lab: Notes/Report: TSH CASCADE 0.03 0.40-4.00 uIU/ml VITAMIN D, 25-HYDROXY Reviewed date:09/04/2022 01:06:13 PM Interpretation:Normal Performing Lab: Notes/Report: VITAMIN D, 25-HYDROXY 30 30-80 ng/mL QUANTIFERON(R)-TB GOLD PLUS, 1 TUBE Reviewed date:09/12/2022 09:00:47 AM Interpretation:Negative Performing Lab:NL2, [facility] [id number], ([address]), [id number] Mahogany Delgado Notes/Report: NON-FASTING QUANTIFERON(R)-TB GOLD PLUS, 1 TUBE NEGATIVE NEGATIVE Negative test result. M. tuberculosis complex infection unlikely. NIL 0.15 MITOGEN-NIL >10.00 TB1-NIL 0.01 TB2-NIL 0.00 The Nil tube value reflects the background interferon gamma immune response of the patient's blood sample. This value has been subtracted from the patient's displayed TB and Mitogen results. Lower than expected results with the Mitogen tube prevent false-negative Quantiferon readings by detecting a patient with a potential immune suppressive condition and/or suboptimal pre-analytical specimen handling. The TB1 Antigen tube is coated with the M. tuberculosis-specific antigens designed to elicit responses from TB antigen primed CD4+ helper T-lymphocytes. The TB2 Antigen tube is coated with the M. tuberculosis-specific antigens designed to elicit responses from TB antigen primed CD4+ helper and CD8+ cytotoxic T-lymphocytes. For additional information, please refer to https://education.[employer]/faq/F AQ204 (This link is being provided for informational/ educational purposes only.) COMPREHENSIVE METABOLIC PANE L Reviewed date:10/31/2022 11:41:57 AM Interpretation:essentially normal Performing Lab: Notes/Report: GLUCOSE 86 70-100 mg/dL Reference range applicable to fasting specimens only BUN 14 5-25 mg/dL CREAT 0.91 0.5-1.1 mg/dL GLOMERULAR FILTRATION RATE 78 >60 This eGFR result was calculated using the CKD-EPI 2020 Creatinine Equation SODIUM 139 135-145 mEq/L POTASSIUM 5.2 3.5-5.5 mmol/L CHLORIDE 103 96-110 mmol/L CO2 33 21-32 mmol/L ANION GAP 3 3-11 CALCIUM 9.4 8.5-10.5 mg/dL TOTAL PROTEIN 6.4 6.0-8.0 G/dL ALBUMIN 3.3 3.2-5.0 G/dL BILI,TOTAL 0.3 0.0-1.4 mg/dL SGOT 16 10-42 U/L SGPT 20 10-60 U/L ALK PHOS 75 42-121 U/L VALPROIC ACID (DEPAKOTE) LEV EL Reviewed date:10/31/2022 11:42:08 AM Interpretation: Performing Lab: Notes/Report: VALPROIC ACID (DEPAKOTE) LEVEL 51.0 50.0-100.0 ug/mL DRUG TOX MONITORING 9 W/CONF , URINE Reviewed date:03/02/2023 07:54:41 PM Interpretation:Positive Performing Lab:NL2, [facility] [id number] [id number] Mahogany Delgado Notes/Report: NON-FASTING Amphetamines NEGATIVE <500 ng/mL Barbiturates NEGATIVE <300 ng/mL Benzodiazepines NEGATIVE <100 ng/mL Buprenorphine NEGATIVE <5 ng/mL Cocaine Metabolite NEGATIVE <150 ng/mL Heroin Metabolite NEGATIVE <10 ng/mL Marijuana Metabolite 20 NEGATIVE <20 ng/mL MDMA/MDA NEGATIVE <500 ng/mL Methadone Metabolite POSITIVE <100 ng/mL EDDP >65700 <100 ng/mL See Note 1 Methadone >47128 <100 ng/mL See Note 1 Opiates NEGATIVE CONFIRMED <100 ng/mL Codeine NEGATIVE <50 ng/mL See Note 1 Hydrocodone NEGATIVE <50 ng/mL See Note 1 Hydromorphone NEGATIVE <50 ng/mL See Note 1 Morphine NEGATIVE <50 ng/mL See Note 1 Norhydrocodone NEGATIVE <50 ng/mL See Note 1 Oxycodone POSITIVE <100 ng/mL Noroxycodone 942 <50 ng/mL See Note 1 Oxycodone 771 <50 ng/mL See Note 1 Oxymorphone 495 <50 ng/mL See Note 1 Phencyclidine NEGATIVE <25 ng/mL COMMENT See Note 2 Note 1 This test was developed and its analytical performance characteristics have been determined by [facility]. It has not been cleared or approved by the FDA. This assay has been validated pursuant to the CLIA regulations and is used for clinical purposes. Note 2 This drug testing is for medical treatment only. Analysis was performed as non-forensic testing and these results should be used only by healthcare providers to render diagnosis or treatment, or to monitor progress of medical conditions. For assistance with interpreting these drug results, please contact a [facility] Toxicology Specialist: [phone] ( ), M-F, 8am-6pm EST. CBC Reviewed date:05/15/2023 10:06:41 AM Interpretation:Normal Performing Lab: Notes/Report: WBC 5.4 4.8-10.8 x10-3/uL RBC 4.2 3.8-4.8 x10-6/uL HEMOGLOBIN 11.8 11.5-16.0 g/dL HEMATOCRIT 36.0 35-47 % MCV 85.3 79-98 fL MCH 28.0 27-32 pg MCHC 32.8 32-37 g/dL RDW 14.5 11-15 % PLT COUNT 188 130-400 x10-3/uL MEAN PLATELET VOLUME 10.2 7-11 fL NRBC % AUTO 0.0 <1 % NRBC # AUTO 0.00 <0.1 x10-3/uL LIVER PANEL Reviewed date:05/15/2023 10:07:52 AM Interpretation:sl low albumin and SGOT Performing Lab: Notes/Report: TOTAL PROTEIN 6.1 6.0-8.0 G/dL ALBUMIN 3.0 3.2-5.0 G/dL BILI,TOTAL 0.3 0.0-1.4 mg/dL BILI,DIRECT < 0.1 0.0-0.3 mg/dL BILI,INDIRECT 0.2 0.0-1.1 mg/dL SGOT 8 10-42 U/L SGPT 13 10-60 U/L ALK PHOS 68 42-121 U/L VALPROIC ACID (DEPAKOTE) LEV EL Reviewed date:05/15/2023 10:07:03 AM Interpretation:Normal Performing Lab: Notes/Report: VALPROIC ACID (DEPAKOTE) LEVEL 76.0 50.0-100.0 ug/mL FREE T3 Reviewed date:09/04/2022 01:04:32 PM Interpretation:Normal Performing Lab: Notes/Report: FREE T3 387 230-420 pg/dl FREE T4 CASCADE Reviewed date:09/04/2022 01:04:38 PM Interpretation:Normal Performing Lab: Notes/Report: FREE T4 CASCADE 1.07 0.70-1.80 ng/dL HEPATITIS A ANTIBODY IGM Reviewed date:09/04/2022 01:04:26 PM Interpretation:Negative Performing Lab: Notes/Report: HEPATITIS A ANTIBODY IGM NEGATIVE NEGATIVE Over the counter supplements containing high doses of biotin may interfere with this assay. If interference is suspected, patients shoud be retested after refraining from biotin supplements for 72 hours. HEPATITIS A B C PROFILE Reviewed date:09/04/2022 01:04:55 PM Interpretation:no immunity to Hep B Performing Lab: Notes/Report: HEPATITIS B SURFACE ANTIGEN NEGATIVE NEGATIVE Over the counter supplements containing high doses of biotin may interfere with this assay. If interference is suspected, patients shoud be retested after refraining from biotin supplements for 72 hours. HEPATITIS B SURFACE ANTIBODY NEGATIVE NEGATIVE HEPATITIS B CORE ANTIBODY NEGATIVE NEGATIVE HEPATITIS C VIRUS DIAGNOSTIC NEGATIVE NEGATIVE HEPATITIS A ANTIBODY TOTAL POSITIVE NEGATIVE Over the counter supplements containing high doses of biotin may interfere with this assay. If interference is suspected, patients shoud be retested after refraining from biotin supplements for 72 hours. CR Knee RT 1 or 2 View Reviewed date:10/21/2022 04:10:55 PM Interpretation:Positive Performing Lab: Notes/Report: Positive THYROID PANEL WITH TSH Reviewed date:02/26/2023 10:14:52 PM Interpretation:Normal Performing Lab: Notes/Report: Normal X T3 UPTAKE T4 (THYROXINE), TOTAL FREE T4 INDEX (T7) TSH 1.78 FREE T4 Reviewed date:02/26/2023 10:15:47 PM Interpretation:Normal Performing Lab: Notes/Report: Normal FREE T4 1.24 REASON FOR REFERRAL Reason [facility] Jordyn wishe s to transfer care from [facility] Endocrinology Diagnosis 1 Thyrotoxicosis, unsp ecified without thyrotoxic crisis or storm (E05.90) Referral Organization [facility] Referring Provider First Name Eren Referring Provider Last Name Primitivo Referring Provider Speciality Nurse Prac titioner Referred Provider [facility], Endocrinology Referred Provider Specialty Endocrinolog y General Notes Kerri Pak 2022 04:14:40 PM >faxed to [facility] Mellisa Cobb Monica 02/05/2023 10:20:56 AM >Client seen, note sent to scan Referral Priority Routine Referral Appointment Date 02/04/2023 Reason Campos Roe ised toilet seat Diagnosis 1 Presence of unspecif ied artificial knee joint (Z96.659) Referral Organization [facility] Referring Provider First Name Magen Referring Provider Last Name Grzegorz Referring Provider Speciality Internal M edicine Referred Provider Fabricio Ross [facility] Equipment General Notes Shira Robles 02/10/2023 02:24:45 PM > referral faxed, Shira Robles 02/27/2023 07:34:02 AM > pt received equipment Referral Priority Routine Reason Campos Morgan medical equipment post surgery - commode and shower chair Diagnosis 1 Presence of unspecif ied artificial knee joint (Z96.659) Referral Organization [facility] Referring Provider First Name Magen Referring Provider Last Name Grzegorz Referring Provider Speciality Internal M edicine Referred Provider Fabricio Ross Medical Equipment General Notes Durga Nails 02/27/2023 03:24:14 PM >Paperwork faxed this am to [facility], Carlee Nails 03/03/2023 01:42:05 PM >, Carlee Nails 03/03/2023 01:42:07 PM >DME obtained Referral Priority Routine Reason Dilan Diagnosis 1 Presence of unspecif ied artificial knee joint (Z96.659) Diagnosis 2 Effusion, unspecifie d joint (M25.40) Diagnosis 3 Pain in unspecified knee (M25.569) Referral Organization [facility] Referring Provider First Name Magen Referring Provider Last Name Grzegorz Referring Provider Speciality Internal M edicine Referred Provider Mckinley Kong General Notes Shira Robles 03/02/2023 11:14:47 AM > paperwork completed awaiting provider signature Referral Priority Routine Reason To [facility] [address] in [place] x 5 days weekly arrival 9:30, P/U 2:15pm. Referral Organization [facility] Referring Provider First Name Magen Referring Provider Last Name Grzegorz Referring Provider Speciality Internal edicine Referred Provider PT1, Request Referral Priority Routine MEDICATIONS Medication SIG (Take, Route, Frequency, Duration) Notes Start Date End Date Status indomethacin 50 mg 1 cap(s) orally every 12 hours; with food and DC ibuprofen for 14 days Active pramipexole 0.25 mg 1 tab(s) orally bid prn RLS Active methadone 10 mg/mL 120/100mg orally BID Active Imitrex 50 mg 1 tab(s) orally at onset of migraine headache Started by neurology for migraines Active Narcan 4 mg/0.1 mL 4 mg intranasally once for 30 day(s) 03/24/2019 Active OxyCODONE Hydrochloride 5 mg 1 tab(s) orally every 6 hours; for 07/25/23 for 14 days 07/24/2023 Active ProAir HFA 90 mcg/inh 2 puffs inhaled every 6 hours PRN wheezing Not-Taking mometasone 100 mcg/inh as directed inhaled 2 times a day Active Topamax 25 mg 1 tab(s) orally 2 times a day Started by [facility]EE [facility]OST Active Depakote 500 mg 1 tab(s) orally daily in am Active Depakote 250 mg 1 tab(s) orally once a day (at bedtime) Active Diclofenac Sodium Topical 1% as directed apply to knee 4 times a day for 15 days 07/11/2023 Active Ondansetron Hydrochloride 4 mg 1 tab(s) orally 3 times a day as needed for nausea for 30 days 09/03/2022 Active hydrOXYzine hydrochloride 25 mg 1-2 tabs orally 4 times a day as needed Active mirtazapine 15 mg 1 tab(s) orally once a day (at bedtime) Active traZODone 50 mg 1-2 tabs orally nightly at bedtime Active IMMUNIZATIONS Vaccine Route Administration Date Status Comme nts Pfizer-Biontech Covid-19 Vaccine Administration - First Dose (Single Dose 30MCG/0.3ML 1ST) Unknown 2021 Administered Pfizer-Biontech Covid-19 Vaccine Administration-Second Dose (Single Dose 30MCG/0.3ML 2ND) Unknown 02/17/2021 Administered Hepatitis B (20 or more) Unknown 06/24/2013 Administere d Influenza Unknown 07/21/2022 Administered Hepatitis B (20 or more) IM Intramuscular 10/22/2022 Admin istered Influenza IM Intramuscular 05/15/2023 Administered SOCIAL HISTORY Tobacco Use: Social History Observation Description Date Details (start date - stop date) Current Smoker NA - NA Sex Assigned At : Social History Observation Description Sex Assigned At Unknown Tobacco Use Assessment MU Question Answer Notes What is your current smoking status? current smo ker How often do you smoke? every day How many cigarettes a day do you smoke? 5 or les s Are you interested in quitting? ready to quit Patient counseled on the grace gers of tobacco use and advised to quit: 10/22/2022 VITAL SIGNS Temperature 98.1 degrees Fahrenheit 05/15/2023 Blood pressure diastolic 82 05/15/2023 Oximetry 93 05/15/2023 Height 71 in 06/19/2023 Blood pressure systolic 115 05/15/2023 Weight 216.6 lbs 05/15/2023 BMI 30.21 kg/m2 05/15/2023 Encounters Encounter Location Date Provider Diagnosis [address] [id number] 08/27/2022 Eren Langford Encounter for screening for infectious and parasitic diseases, unspecified Z11.[address] [facility] [address] [place] [address] [place] [id number] 09/23/2022 Laila Molina Other terminal clerk (current) drug therapy Z79.899 and Counseling, unspecified Z71.[address] [id number] 10/06/2022 Beverly Phan [facility] [address] [place] [address] [place], [place] [id number] 10/29/[address] [id number] 11/05/2022 Beverly Phan [facility] [address] [place] [address] [place], [place] [id number] 11/06/2022 Laila Molina Encounter for screening for infectious and parasitic diseases, unspecified Z11.9 ; Bipolar disorder, unspecified F31.9 ; Other jail (current) drug therapy Z79.899 ; Epilepsy, unspecified, not intractable, without status epilepticus G40.909 ; Thyrotoxicosis, unspecified without thyrotoxic crisis or storm E05.90 ; Post-traumatic stress disorder, chronic F43.12 and Insomnia, unspecified G47.00 [facility] [address] [place] [address] [place], [place] [id number] 11/12/[address] [id number] 12/03/2022 Beverly Phan [facility] [address] [place] [address] [place] [id number] 12/30/2022 Beverly Phan [facility] [address] [place] [address] [place], [place] [id number] 01/21/2023 Rosalieie Phan [facility] [address] [place] [address] [place], [place] [id number] 02/24/2023 Beverly Phan [facility] [address] [place] [address] [place] [id number] 03/24/2023 Beverly Phan [address] [id number] 05/08/[address] [id number] 05/29/2023 Laila Molina Encounter for screening for COVID-19 Z11.52 and Bipolar disorder, unspecified F31.[address] [id number] 09/03/2022 Eren Langford Encounter for screening for infectious and parasitic diseases, unspecified Z11.9 ; Epilepsy, unspecified, not intractable, without status epilepticus G40.909 ; Encounter for general adult medical examination with abnormal findings Z00.01 ; Nicotine dependence, cigarettes, uncomplicated F17.210 ; Encounter for screening for malignant neoplasm of colon Z12.11 ; Encounter for screening mammogram for malignant neoplasm of breast Z12.31 ; Encounter for screening for cardiovascular disorders Z13.6 ; Bipolar disorder, unspecified F31.9 ; Mild intermittent asthma, uncomplicated J45.20 ; Opioid abuse, uncomplicated F11.10 ; Thyrotoxicosis, unspecified without thyrotoxic crisis or storm E05.90 ; Migraine without aura, not intractable, without status migrainosus G43.009 ; Vitamin D deficiency, unspecified E55.9 ; Body mass index [BMI] 24.0-24.9, adult Z68.24 ; Insomnia, unspecified G47.00 ; Post-traumatic stress disorder, chronic F43.12 ; Chronic pain syndrome G89.4 ; Dorsalgia, unspecified M54.9 ; Menopausal and female climacteric states N95.1 ; Acquired absence of both cervix and uterus Z90.710 and Encounter for screening for depression Z13.[address] [place] [id number] 09/18/2022 Eddieliza Primitivo Epilepsy, unspecified, not intractable, without status epilepticus G40.909 ; Thyrotoxicosis, unspecified without thyrotoxic crisis or storm E05.90 and Person consulting for explanation of examination or test findings Z71.[address] [place] [id number] 10/21/2022 Magen Lantigua Encounter for screening for infectious and parasitic diseases, unspecified Z11.9 ; Contusion of right knee, initial encounter S80.01XA and Opioid abuse, uncomplicated F11.[address] [id number] 10/22/2022 Magen Lantigua Encounter for immunization Z23 ; Effusion, unspecified joint M25.40 and Opioid abuse, uncomplicated F11.[address] [id number] 10/30/2022 Laila Molina 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 [address] [place] [address] [place] [id number] 11/07/2022 Laila Molina Bipolar disorder, unspecified F31.9 ; Epilepsy, unspecified, not intractable, without status epilepticus G40.909 ; Post-traumatic stress disorder, chronic F43.12 ; Insomnia, unspecified G47.00 and Other specified counseling Z71.[address] [id number] 01/02/2023 Laila Molina Bipolar disorder, unspecified F31.9 ; Epilepsy, unspecified, not intractable, without status epilepticus G40.909 ; Post-traumatic stress disorder, chronic F43.12 ; Insomnia, unspecified G47.00 ; Anxiety disorder, unspecified F41.9 ; Thyrotoxicosis, unspecified without thyrotoxic crisis or storm E05.90 and Encounter for screening for infectious and parasitic diseases, unspecified Z11.[address] [id number] 02/26/2023 Magen Lantigua Encounter for screening for infectious and parasitic diseases, unspecified Z11.9 ; Other tear of medial meniscus, current injury, left knee, initial encounter S83.242A ; Pain in unspecified knee M25.569 ; Post-traumatic stress disorder, chronic F43.12 ; Nicotine dependence, cigarettes, uncomplicated F17.210 ; Mild intermittent asthma, uncomplicated J45.20 ; Opioid abuse, uncomplicated F11.10 ; Thyrotoxicosis, unspecified without thyrotoxic crisis or storm E05.90 ; Epilepsy, unspecified, not intractable, without status epilepticus G40.909 and Anxiety disorder, unspecified F41.[address] [id number] 05/14/2023 Nursing [facility] Encounter for screening for COVID-19 Z11.52 and Encounter for screening, unspecified Z13.[address] [id number] 05/15/2023 Magen Lantigua Encounter for screening for COVID-19 Z11.52 ; Mild intermittent asthma, uncomplicated J45.20 ; Encounter for immunization Z23 ; Presence of unspecified artificial knee joint Z96.659 ; Osteoarthritis of knee, unspecified M17.9 and Cocaine use, unspecified, in remission F14.[address] [id number] 05/15/2023 Laila Molina Bipolar disorder, unspecified F31.9 ; Epilepsy, unspecified, not intractable, without status epilepticus G40.909 ; Post-traumatic stress disorder, chronic F43.12 ; Insomnia, unspecified G47.00 ; Anxiety disorder, unspecified F41.9 ; Encounter for screening for COVID-19 Z11.52 and Thyrotoxicosis, unspecified without thyrotoxic crisis or storm E05.[address] [id number] 06/19/2023 Laila Molina Bipolar disorder, current episode depressed, mild F31.31 ; Bipolar disorder, unspecified F31.9 ; Epilepsy, unspecified, not intractable, without status epilepticus G40.909 ; Post-traumatic stress disorder, chronic F43.12 ; Insomnia, unspecified G47.00 ; Anxiety disorder, unspecified F41.9 ; Thyrotoxicosis, unspecified without thyrotoxic crisis or storm E05.90 and Encounter for screening for COVID-19 Z11.52 [facility] [address] [place] [address] [place] [id number] 07/24/2023 Laila Molina Bipolar disorder, current episode depressed, mild F31.31 ; Post-traumatic stress disorder, chronic F43.12 ; Insomnia, unspecified G47.00 ; Anxiety disorder, unspecified F41.9 and Encounter for screening for COVID-[address] [id number] 08/08/2022 Eren Langford [address] [id number] 09/03/2022 Eddieliza Casionan [address] [id number] 09/04/2022 Eddieliza Casionan [address] [id number] 09/08/2022 Eddieliza Casionan Insomnia, unspecified G47.[address] [id number] 09/18/2022 [facility] [address] [place] [address] [id number] 10/03/2022 Laila Molina [address] [id number] 10/07/2022 Eddieliza Casionan [address] [id number] 10/21/2022 Magen Lantigua [address] [id number] 10/21/2022 Magen Mendozader [address] [id number] 10/24/2022 Magen Balder Effusion, unspecifie d joint M25.[address] [id number] 11/05/2022 Magen Balder Effusion, unspecifie d joint M25.40 [facility] [address] [place] [address] [id number] 11/13/2022 Magen Balder Effusion, unspecifie d joint M25.[address] [id number] 11/14/2022 Magen Balder [address] [id number] 11/25/2022 Magen Balder [address] [id number] 12/02/2022 Magen Balder [address] [id number] 12/09/2022 Laila Molina Insomnia, unspecifie d G47.[address] [id number] 12/10/2022 Magen Balder Effusion, unspecifie d joint M25.40 and Chronic pain syndrome G89.[address] [id number] 12/10/2022 Magen Lantigua Insomnia, unspecifie d G47.00 and Effusion, unspecified joint M25.[address] [id number] 12/18/2022 Magen Balder Effusion, unspecifie d joint M25.40 [facility] [address] [place] [address] [id number] 01/02/2023 Magen Balder Effusion, unspecifie d joint M25.40 [facility] [address] [place] [address] [id number] 01/16/2023 Magen Balder Effusion, unspecifie d joint M25.[address] [id number] 01/21/2023 Magen Balder [address] [id number] 01/30/2023 Magen Balder Effusion, unspecifie d joint M25.[address] [id number] 02/03/2023 Magen Balder [address] [id number] 02/06/2023 Magen Balder [address] [id number] 02/20/2023 Magen Balder Effusion, unspecifie d joint M25.[address] [id number] 03/04/2023 Magen Lantigua [address] [id number] 03/12/2023 Magen Lantigua Other tear of medial meniscus, current injury, left knee, initial encounter S83.242A and Migraine without aura, not intractable, without status migrainosus G43.[address] [id number] 03/20/[address]ua [address] [id number] 03/24/2023 Magen Lantigua Other tear of medial meniscus, current injury, left knee, initial encounter S83.242A [address] [id number] 03/30/2023 Magen Lantigua [address] [id number] 04/07/2023 Magen Lantigua [address] [id number] 04/15/2023 Magen Lantigua [address] [id number] 04/23/2023 Magen Lantigua [address] [id number] 04/30/2023 Laila Molina [address] [id number] 04/30/2023 Magen Lantigua [address] [id number] 05/07/2023 Magen Lantigua [address] [id number] 05/08/2023 Laila Molina Encounter for therapeutic drug level monitoring Z51.[address] [id number] 05/08/2023 Magen Lantigua [address] [id number] 05/17/2023 Laila Molina Epilepsy, unspecified, not intractable, without status epilepticus G40.[address] [id number] 05/18/2023 Magen Lantigua [address] [id number] 05/18/2023 Magen Lantigua [address] [id number] 05/29/2023 Magen Lantigua [address] [id number] 06/09/2023 Magen Lantigua [address] [id number] 06/22/2023 Magen Lantigua [address] [id number] 07/10/2023 Magen Lantigua [address] [id number] 07/24/2023 Magen Lantigua ASSESSMENTS Encounter Date Diagnosis Assessment Notes Treatment Notes Treatment Clinical Notes 08/27/2022 Encounter for screening for infectious and parasitic diseases, unspecified (ICD-10 - Z11.9) Covid screening is negative. Discussed in detail with patient how to practice social distancing by avoiding public spaces and crowds now, wearing a mask in public to keep nose and mouth covered, and washing hands frequently especially before eating and after using the bathroom. Return to clinic if you develop any symtpoms of concern to be rescreened or go to the emergency room if you are having concerning symptoms for COVID-19. 09/23/2022 Other jail (current) drug therapy (ICD-10 - Z79.899) 11/06/2022 Encounter for screening for infectious and parasitic diseases, unspecified (ICD-10 - Z11.9) Covid screening is negative. Discussed in detail with patient how to practice social distancing by avoiding public spaces and crowds now, wearing a mask in public to keep nose and mouth covered, and washing hands frequently especially before eating and after using the bathroom. Return to clinic if you develop any symtpoms of concern to be rescreened or go to the emergency room if you are having concerning symptoms for COVID-19. 05/29/2023 Encounter for screening for COVID-19 (ICD-10 - Z11.52) Covid screening is negative. Discussed in detail with patient how to practice social distancing by avoiding public spaces and crowds now, wearing a mask in public to keep nose and mouth covered, and washing hands frequently especially before eating and after using the bathroom. Return to clinic if you develop any symtpoms of concern to be rescreened or go to the emergency room if you are having concerning symptoms for COVID-19. 09/03/2022 Epilepsy, unspecified, not intractable, without status epilepticus (ICD-10 - G40.909) Neurologist- Dr. Mann-[facility] Follows up with Dr. Mann at [facility], Neuro 09/03/2022 Encounter for screening for infectious and parasitic diseases, unspecified (ICD-10 - Z11.9) Covid screening is negative. Discussed in detail with patient how to practice social distancing by avoiding public spaces and crowds now, wearing a mask in public to keep nose and mouth covered, and washing hands frequently especially before eating and after using the bathroom. Return to clinic if you develop any symtpoms of concern to be rescreened or go to the emergency room if you are having concerning symptoms for COVID-19. Screen for STI. TB and hepatitis 09/18/2022 Thyrotoxicosis, unspecified without thyrotoxic crisis or storm (ICD-10 - E05.90) with [facility] T3T4 normal Engaged with [facility] 09/18/2022 Epilepsy, unspecified, not intractable, without status epilepticus (ICD-10 - G40.909) Neurologist- Dr. Mann[facility] engaged with [facility]. On Depakote and Keppra. WBC low. Faxed lab results to neurology 10/21/2022 Contusion of right knee, initial encounter (ICD-10 - S80.01XA) x-ray at [facility] neg. unclear if effusion or contusion and I need to see her in person-agrees to tomorrw note for limited stairs at home written we will ahve crutches, etc ready if needed no change in meds atpresent 10/21/2022 Encounter for screening for infectious and parasitic diseases, unspecified (ICD-10 - Z11.9) Covid screening is negative. Discussed in detail with patient how to practice social distancing by avoiding public spaces and crowds now, wearing a mask in public to keep nose and mouth covered, and washing hands frequently especially before eating and after using the bathroom. Return to clinic if you develop any symtpoms of concern to be rescreened or go to the emergency room if you are having concerning symptoms for COVID-19. 10/22/2022 Effusion, unspecified joint (ICD-10 - M25.40) I worry about inbternal disruption and may need arthrocentesis to see if blood. She and I discussed and prefer to go to ortho walk in at [facility] this afternoon or tomorrow AM. She has address and hours fited with knee sleeve for comfort She is on 120 mthadone and NSAIDs not working. Will rx one day oxycodine 5 mg q 6 h and see how she is after [facility] Declined crutches 10/22/2022 Encounter for immunization (ICD-10 - Z23) Screening performed for vaccine contraindications prior to administration. See scanned document. VIS reviewed. No contraindications for vaccine administration. Hepatitis B # 2 vaccine given per protocol. No adverse outcome with administration of vaccine. Next dose due 2 months 10/30/2022 Bipolar disorder, unspecified (ICD-10 - F31.9) Followed by [facility] Reviewed hx of psychiatric illness, treatment received and medication trials with client. Discussed current medications as to indications, actions and side effects. Reviewed risks benefits of treatment versus non treatment. Medication education provided. Patient given opportunity to ask questions. Patient gives informed consent to proceed with prescribed treatment. 1. [employer] HYDROGRAPHICAL TECHNICAL OFFICER reviewed: see exam 2. Medications: cont Depakote 3. Cont psychotherapy: Violetta Sams [facility] 4. Labs/Procedures: Depakote level today 5. Exercise/Nutrition: sleep, regular exercise and nutrition all have a direct impact on our health and well-being. Keeping them in balance is especially important when we face stressful times in our lives. Eat balanced meals, get 6-8 hours of sleep a night, daily walking as able. 6. Understands plan and verbalizes agreement, allowed time for clarifying questions. 10/30/2022 Other jail (current) drug therapy (ICD-10 - Z79.899) Diagnostic labs drawn as ordered per protocol using aseptic technique. We will attempt to reach you by telephone to discuss the test results. If we cannot reach you by telephone, we will mail you your results to the address we have on file. In all cases, results will be reviewed at your next office visit. We will contact you sooner if you have a telephone or address where we can reach you for abnormal test results requiring immediate action. Labs drawn by: FILIPE 11/07/2022 Bipolar disorder, unspecified (ICD-10 - F31.9) Followed by [facility] Reviewed hx of psychiatric illness, treatment received and medication trials with client. Discussed current medications as to indications, actions and side effects. Reviewed risks benefits of treatment versus non treatment. Medication education provided. Patient given opportunity to ask questions. Patient gives informed consent to proceed with prescribed treatment. 1. [employer] HYDROGRAPHICAL TECHNICAL OFFICER reviewed: see exam 2. Medications: cont Depakote, await appt with neuro for recommendations 3. Cont psychotherapy: Violetta Sams [facility] 4. Labs/Procedures: Depakote level therapeutic 5. Exercise/Nutrition: sleep, regular exercise and nutrition all have a direct impact on our health and well-being. Keeping them in balance is especially important when we face stressful times in our lives. Eat balanced meals, get 6-8 hours of sleep a night, daily walking as able. 6. Understands plan and verbalizes agreement, allowed time for clarifying questions. 11/07/2022 Epilepsy, unspecified, not intractable, without status epilepticus (ICD-10 - G40.909) [facility] working with neurologist has appt 11/10/22. Plan to obtain medication recommendations. 01/02/2023 Bipolar disorder, unspecified (ICD-10 - F31.9) Followed by [facility] Reviewed hx of psychiatric illness, treatment received and medication trials with client. Discussed current medications as to indications, actions and side effects. Reviewed risks benefits of treatment versus non treatment. Medication education provided. Patient given opportunity to ask questions. Patient gives informed consent to proceed with prescribed treatment. 1. [employer] HYDROGRAPHICAL TECHNICAL OFFICER reviewed: see exam 2. Medications:see note under epilepsy. Dr Mann Neurologist ordering Depakote and Lamictal. 3. Cont psychotherapy: Violetta Sams [facility] 4. Labs/Procedures: no new labs 5. Exercise/Nutrition: sleep, regular exercise and nutrition all have a direct impact on our health and well-being. Keeping them in balance is especially important when we face stressful times in our lives. Eat balanced meals, get 6-8 hours of sleep a night, daily walking as able. 6. Understands plan and verbalizes agreement, allowed time for clarifying questions. 01/02/2023 Epilepsy, unspecified, not intractable, without status epilepticus (ICD-10 - G40.909) Neurologist- Dr. Mann[facility] Followed by Dr. Johnathan [facility]. Depakote dose was decreased to 500 mg in am, with slow titration of Lamictal now on 50 mg BID and has f/u appt. Client also aware Lamictal can help with Bipolar Depression. 02/26/2023 Other tear of medial meniscus, current injury, left knee, initial encounter (ICD-10 - S83.242A) PRE-OP Dr. Velásquez (ortho) She is at low cardiac risk for low roisk procedure. Pulmonary status good Thyroid issue resolved Seizure contorl excellent MEDICATION should all be continued into morning or surgery with the exception of indomethacin. Would hol dthis for 2 days. She ahs to get me date of surgery which she is hoping is in next 30 days. i do not believe she needs ECG or other labs pre-op. Concur with pain consult as manging pain with methadone maintenance needs attention. Jonny willard pick this up a week after surgery on the reqeust of her orthopedist 02/26/2023 Encounter for screening for infectious and parasitic diseases, unspecified (ICD-10 - Z11.9) Covid screening is negative. Discussed in detail with patient how to practice social distancing by avoiding public spaces and crowds now, wearing a mask in public to keep nose and mouth covered, and washing hands frequently especially before eating and after using the bathroom. Return to clinic if you develop any symtpoms of concern to be rescreened or go to the emergency room if you are having concerning symptoms for COVID-19. 05/14/2023 Encounter for screening, unspecified (ICD-10 - Z13.9) Diagnostic labs drawn as ordered per protocol using aseptic technique. We will attempt to reach you by telephone to discuss the test results. If we cannot reach you by telephone, we will mail you your results to the address we have on file. In all cases, results will be reviewed at your next office visit. We will contact you sooner if you have a telephone or address where we can reach you for abnormal test results requiring immediate action. Labs drawn by:adelia . Reviewed by: . 05/14/2023 Encounter for screening for COVID-19 (ICD-10 - Z11.52) Covid screening is negative. Discussed in detail with patient how to practice social distancing by avoiding public spaces and crowds now, wearing a mask in public to keep nose and mouth covered, and washing hands frequently especially before eating and after using the bathroom. Return to clinic if you develop any symtpoms of concern to be rescreened or go to the emergency room if you are having concerning symptoms for COVID-19. 05/15/2023 Mild intermittent asthma, uncomplicated (ICD-10 - J45.20) she is lablled as mild intermittent but seasonailty striking although unclear if persistent. i want to flip her over to Dulera and use it as maintenance and rescue at present. She will contact me i a week THEN need spirometry 05/15/2023 Encounter for screening for COVID-19 (ICD-10 - Z11.52) Covid screening is negative. Discussed in detail with patient how to practice social distancing by avoiding public spaces and crowds now, wearing a mask in public to keep nose and mouth covered, and washing hands frequently especially before eating and after using the bathroom. Return to clinic if you develop any symtpoms of concern to be rescreened or go to the emergency room if you are having concerning symptoms for COVID-19. 05/15/2023 Bipolar disorder, unspecified (ICD-10 - F31.9) Followed by [facility] Reviewed hx of psychiatric illness, treatment received and medication trials with client. Discussed current medications as to indications, actions and side effects. Reviewed risks benefits of treatment versus non treatment. Medication education provided. Patient given opportunity to ask questions. Patient gives informed consent to proceed with prescribed treatment. 1. [employer] HYDROGRAPHICAL TECHNICAL OFFICER reviewed: see exam 2. Medications: cont Depakote at current dose Depakote recently increased per client request to help with mood stability, level therapeutic. Will need to get dose of lamictal from client as Valprote can increase lamictal plasma levels. The effect of valproate is dose dependent. Lamictal prescribed by her neuroligist. We daisy call neuro office to make aware of increase in Depakote. She will need to monitor for any skin rashes with Lamictal. 3. Cont psychotherapy: Violetta Sams [facility] 4. Labs/Procedures:see labs and Depakote level 5. Exercise/Nutrition: sleep, regular exercise and nutrition all have a direct impact on our health and well-being. Keeping them in balance is especially important when we face stressful times in our lives. Eat balanced meals, get 6-8 hours of sleep a night, daily walking as able. 6. Understands plan and verbalizes agreement, allowed time for clarifying questions. 06/19/2023 Bipolar disorder, current episode depressed, mild (ICD-10 - F31.31) Reviewed hx of psychiatric illness, treatment received and medication trials with client. Discussed current medications as to indications, actions and side effects. Reviewed risks benefits of treatment versus non treatment. Medication education provided. Patient given opportunity to ask questions. Patient gives informed consent to proceed with prescribed treatment. 1. [employer] HYDROGRAPHICAL TECHNICAL OFFICER reviewed: see exam 2. Medications: cont Depakote at current dose Clt aware Valprote can increase lamictal plasma levels. The effect of valproate is dose dependent. Lamictal prescribed by her neurologist. She has upcoming scheduled follow up with neurologist. She will need to monitor for any skin rashes with Lamictal. 3. Cont psychotherapy: encouraged to call Violetta Sams [facility] and set up appt. 4. Labs/Procedures: no recent labs 5. Exercise/Nutrition: sleep, regular exercise and nutrition all have a direct impact on our health and well-being. Keeping them in balance is especially important when we face stressful times in our lives. Eat balanced meals, get 6-8 hours of sleep a night, daily walking as able. 6. Understands plan and verbalizes agreement, allowed time for clarifying questions. 07/24/2023 Bipolar disorder, current episode depressed, mild (ICD-10 - F31.31) Reviewed hx of psychiatric illness, treatment received and medication trials with client. Discussed current medications as to indications, actions and side effects. Reviewed risks benefits of treatment versus non treatment. Medication education provided. Patient given opportunity to ask questions. Patient gives informed consent to proceed with prescribed treatment. 1. [employer] HYDROGRAPHICAL TECHNICAL OFFICER reviewed: see exam 2. Medications: cont Depakote at current dose Lamictal prescribed by her neurologist was recently d/c'd by COFFEE HOST at Neuro office. Now on Topamax prescribed by neuro. They are awrae of Depakote. 3. Psychotherapy: she and CM actively looking for therapist to provide weekly sessions 4. Labs/Procedures: no recent labs 5. Exercise/Nutrition: sleep, regular exercise and nutrition all have a direct impact on our health and well-being. Keeping them in balance is especially important when we face stressful times in our lives. Eat balanced meals, get 6-8 hours of sleep a night, daily walking as able. 6. Understands plan and verbalizes agreement, allowed time for clarifying questions. 09/08/2022 Insomnia, unspecified (ICD-10 - G47.00) Followed by [facility] 10/24/2022 Effusion, unspecified joint (ICD-10 - M25.40) 11/05/2022 Effusion, unspecified joint (ICD-10 - M25.40) 11/13/2022 Effusion, unspecified joint (ICD-10 - M25.40) 12/09/2022 Insomnia, unspecified (ICD-10 - G47.00) Followed by [facility] 12/10/2022 Effusion, unspecified joint (ICD-10 - M25.40) 12/10/2022 Insomnia, unspecified (ICD-10 - G47.00) Followed by [facility] 12/18/2022 Effusion, unspecified joint (ICD-10 - M25.40) 01/02/2023 Effusion, unspecified joint (ICD-10 - M25.40) 01/16/2023 Effusion, unspecified joint (ICD-10 - M25.40) 01/30/2023 Effusion, unspecified joint (ICD-10 - M25.40) 02/20/2023 Effusion, unspecified joint (ICD-10 - M25.40) 03/12/2023 Other tear of medial meniscus, current injury, left knee, initial encounter (ICD-10 - S83.242A) 03/24/2023 Other tear of medial meniscus, current injury, left knee, initial encounter (ICD-10 - S83.242A) 05/08/2023 Encounter for therapeutic drug level monitoring (ICD-10 - Z51.81) 05/17/2023 Epilepsy, unspecified, not intractable, without status epilepticus (ICD-10 - G40.909) [facility] Counseling, unspecified (ICD-10 - Z71.9) Social distancing, hand washing, wearing a mask in public places, and not touching the face were strategies discussed to avoid [place] COVID-19. Symptoms of COVID-19 were reviewed and advised to promptly report concerning symtpoms to arrange for assessment and possible testing. 11/06/2022 Bipolar disorder, unspecified (ICD-10 - F31.9) Followed by [facility] Reviewed hx of psychiatric illness, treatment received and medication trials with client. Discussed current medications as to indications, actions and side effects. Reviewed risks benefits of treatment versus non treatment. Medication education provided. Patient given opportunity to ask questions. Patient gives informed consent to proceed with prescribed treatment. 1. [employer] HYDROGRAPHICAL TECHNICAL OFFICER reviewed: see exam 2. Medications: cont Depakote 3. Cont psychotherapy: Violetta Sams [facility] 4. Labs/Procedures: Depakote level today 5. Exercise/Nutrition: sleep, regular exercise and nutrition all have a direct impact on our health and well-being. Keeping them in balance is especially important when we face stressful times in our lives. Eat balanced meals, get 6-8 hours of sleep a night, daily walking as able. 6. Understands plan and verbalizes agreement, allowed time for clarifying questions. 05/29/2023 Bipolar disorder, unspecified (ICD-10 - F31.9) Followed by [facility] 09/03/2022 Encounter for general adult medical examination with abnormal findings (ICD-10 - Z00.01) Annual PE performed, Healthy female. Counseled on importance of maintaining a relationship with a healthcare provider. Annual BP and BMI reviewed. Family hx and PAP hx reviewed. Immunizations reviewed and offered appropriate vaccines according to guidelines. General recommendation for good health made:maintain a healthy weight, see a dentist every 6 months. [place]/floss your teeth 2x per day. Eat a healthy diet and obtain 45 minutes of aerobic exercise 5/7 days per week. Manage your stress. Use a barrier protection for all sexual contact. Counseled that she has the right to be safe in her relationships and to reach out to a trusted friend or provider if she feels unsafe for help. Maintain intake of water and avoid soda and energy drinks. 09/18/2022 Person consulting for explanation of examination or test findings (ICD-10 - Z71.2) Reviewed results of recent diagnostic testing with client. Future plan of action discussed with from results of diagnostic testing. 10/21/2022 Opioid abuse, uncomplicated (ICD-10 - F11.10) [facility] 10/22/2022 Opioid abuse, uncomplicated (ICD-10 - F11.10) 10/30/2022 Epilepsy, unspecified, not intractable, without status epilepticus (ICD-10 - G40.909) Neurologist- Dr. Mann[facility] on [facility], working with neurologist re: starting Bhupinder Bai D/C'd. Plan to review neuro recordss and discuss case with her PCP Dr. Lantigua. 11/07/2022 Post-traumatic stress disorder, chronic (ICD-10 - F43.12) Followed by [facility] 01/02/2023 Post-traumatic stress disorder, chronic (ICD-10 - F43.12) Followed by [facility]. Reviewed mirtazapine can help with depression, anxiety, sleep and appetite and has secondary indication for PTSD. 02/26/2023 Pain in unspecified knee (ICD-10 - M25.569) Urine obtained and transferred to labeled spec tube, awaiting lab merchandise pickup/receiving associate. 05/15/2023 Encounter for immunization (ICD-10 - Z23) Screening performed for vaccine contraindications prior to administration. See scanned document. VIS reviewed. No contraindications for vaccine administration. Infuenza vaccine given per protocol. No adverse outcome with administration of vaccine. 05/15/2023 Epilepsy, unspecified, not intractable, without status epilepticus (ICD-10 - G40.909) Neurologist- Dr. Mann[facility] Followed by Dr. Johnathan [facility]. He is prescribing Lamictal. Client also aware Lamictal can help with Bipolar Depression. Clt needs to call to give information about current dose of lamictal. 06/19/2023 Bipolar disorder, unspecified (ICD-10 - F31.9) Followed by [facility] 07/24/2023 Post-traumatic stress disorder, chronic (ICD-10 - F43.12) Reviewed mirtazapine can help with depression, anxiety, sleep and appetite and has secondary indication for PTSD. 12/10/2022 Chronic pain syndrome (ICD-10 - G89.4) 12/10/2022 Effusion, unspecified joint (ICD-10 - M25.40) 03/12/2023 Migraine without aura, not intractable, without status migrainosus (ICD-10 - G43.009) 11/06/2022 Other jail (current) drug therapy (ICD-10 - Z79.899) Diagnostic labs drawn as ordered per protocol using aseptic technique. We will attempt to reach you by telephone to discuss the test results. If we cannot reach you by telephone, we will mail you your results to the address we have on file. In all cases, results will be reviewed at your next office visit. We will contact you sooner if you have a telephone or address where we can reach you for abnormal test results requiring immediate action. Labs drawn by: CB 09/03/2022 Nicotine dependence, cigarettes, uncomplicated (ICD-10 - F17.210) Tobacco assessment completed., Advised to think about smoking pattern. Advised to think about tobacco cessation. Offered assistance in cessation efforts. 10/30/2022 Thyrotoxicosis, unspecified without thyrotoxic crisis or storm (ICD-10 - E05.90) with [facility] 11/07/2022 Insomnia, unspecified (ICD-10 - G47.00) Followed by [facility] Melatonin stopped as on trazodone and mirtazapine 01/02/2023 Insomnia, unspecified (ICD-10 - G47.00) Followed by [facility] 02/26/2023 Post-traumatic stress disorder, chronic (ICD-10 - F43.12) Followed by [facility] 05/15/2023 Presence of unspecified artificial knee joint (ICD-10 - Z96.659) Long saga with her knee-surgery possibly in 2 weeks if we clear airway 05/15/2023 Post-traumatic stress disorder, chronic (ICD-10 - F43.12) Followed by [facility] Cont therapy. Reviewed mirtazapine can help with depression, anxiety, sleep and appetite and has secondary indication for PTSD. 06/19/2023 Epilepsy, unspecified, not intractable, without status epilepticus (ICD-10 - G40.909) [facility] Dr[facility]. He is prescribing Lamictal. Client also aware Lamictal can help with Bipolar Depression. 07/24/2023 Insomnia, unspecified (ICD-10 - G47.00) 11/06/2022 Epilepsy, unspecified, not intractable, without status epilepticus (ICD-10 - G40.909) [facility] working with neurologist re: starting Lamictal, Bhupinder D/C'd. Plan to review neuro recordss and discuss case with her PCP Dr. Lantigua. 09/03/2022 Encounter for screening for malignant neoplasm of colon (ICD-10 - Z12.11) Advised of need for C/R screening for cancer and advised of options for screening. Insure FIT testing agreed upon with patient for use in screening for occult blood from colorectal disease. Patient collection kit labeled and given to patient and instructed in how to collect samples. Reminded to place date on the sample and accompanying paperwork prior to sending it in. 10/30/2022 Post-traumatic stress disorder, chronic (ICD-10 - F43.12) Followed by [facility] 11/07/2022 Other specified counseling (ICD-10 - Z71.89) Discussed in detail with patient how to practice social distancing and reduce risk of [place] virus. This included avoiding public spaces, crowds, washing hands frequently, and limiting visitors at this time. Patient was encouraged wash hand frequently, cough into their elbow, and contact the clinic if they develop cough/SOB/Fever or have direct contact with someone with these symptoms. 01/02/2023 Anxiety disorder, unspecified (ICD-10 - F41.9) 02/26/2023 Nicotine dependence, cigarettes, uncomplicated (ICD-10 - F17.210) smoking kess and encouraed to drop more 05/15/2023 Osteoarthritis of knee, unspecified (ICD-10 - M17.9) 05/15/2023 Insomnia, unspecified (ICD-10 - G47.00) Followed by [facility] 06/19/2023 Post-traumatic stress disorder, chronic (ICD-10 - F43.12) Followed by [facility] Cont therapy. Reviewed mirtazapine can help with depression, anxiety, sleep and appetite and has secondary indication for PTSD. 07/24/2023 Anxiety disorder, unspecified (ICD-10 - F41.9) 11/06/2022 Thyrotoxicosis, unspecified without thyrotoxic crisis or storm (ICD-10 - E05.90) with [facility] 09/03/2022 Encounter for screening mammogram for malignant neoplasm of breast (ICD-10 - Z12.31) Will have routine mammogram screening appt set up 10/30/2022 Insomnia, unspecified (ICD-10 - G47.00) Followed by [facility] 01/02/2023 Thyrotoxicosis, unspecified without thyrotoxic crisis or storm (ICD-10 - E05.90) with [facility] Hx of Nontoxic Goiter. On methimazole seeing endocrine. 02/26/2023 Mild intermittent asthma, uncomplicated (ICD-10 - J45.20) 05/15/2023 Cocaine use, unspecified, in remission (ICD-10 - F14.91) doing well 05/15/2023 Anxiety disorder, unspecified (ICD-10 - F41.9) 06/19/2023 Insomnia, unspecified (ICD-10 - G47.00) Followed by [facility] 07/24/2023 Encounter for screening for COVID-19 (ICD-10 - Z11.52) Covid screening is negative. 11/06/2022 Post-traumatic stress disorder, chronic (ICD-10 - F43.12) Followed by [facility] 09/03/2022 Encounter for screening for cardiovascular disorders (ICD-10 - Z13.6) Screen for CV disorders Screen for CV disorders 10/30/2022 Encounter for screening for infectious and parasitic diseases, unspecified (ICD-10 - Z11.9) Covid screening is negative. Discussed in detail with patient how to practice social distancing by avoiding public spaces and crowds now, wearing a mask in public to keep nose and mouth covered, and washing hands frequently especially before eating and after using the bathroom. Return to clinic if you develop any symtpoms of concern to be rescreened or go to the emergency room if you are having concerning symptoms for COVID-19. 01/02/2023 Encounter for screening for infectious and parasitic diseases, unspecified (ICD-10 - Z11.9) Covid screening is negative. 02/26/2023 Opioid abuse, uncomplicated (ICD-10 - F11.10) stable and her mother helpsa lot. She has manged her oxycodone well 05/15/2023 Encounter for screening for COVID-19 (ICD-10 - Z11.52) Covid screening is negative. Discussed in detail with patient how to practice social distancing by avoiding public spaces and crowds now, wearing a mask in public to keep nose and mouth covered, and washing hands frequently especially before eating and after using the bathroom. Return to clinic if you develop any symtpoms of concern to be rescreened or go to the emergency room if you are having concerning symptoms for COVID-19. 06/19/2023 Anxiety disorder, unspecified (ICD-10 - F41.9) 11/06/2022 Insomnia, unspecified (ICD-10 - G47.00) Followed by [facility] 09/03/2022 Bipolar disorder, unspecified (ICD-10 - F31.9) Followed by [facility] will establish care with our provider and counselor 02/26/2023 Thyrotoxicosis, unspecified without thyrotoxic crisis or storm (ICD-10 - E05.90) with [facility] 05/15/2023 Thyrotoxicosis, unspecified without thyrotoxic crisis or storm (ICD-10 - E05.90) with [facility] Hx of Nontoxic Goiter. On methimazole seeing endocrine. 06/19/2023 Thyrotoxicosis, unspecified without thyrotoxic crisis or storm (ICD-10 - E05.90) with [facility] Hx of Nontoxic Goiter. On methimazole seeing endocrine. 09/03/2022 Mild intermittent asthma, uncomplicated (ICD-10 - J45.20) stable 02/26/2023 Epilepsy, unspecified, not intractable, without status epilepticus (ICD-10 - G40.909) [facility]- [facility] 06/19/2023 Encounter for screening for COVID-19 (ICD-10 - Z11.52) Covid screening is negative. Discussed in detail with patient how to practice social distancing by avoiding public spaces and crowds now, wearing a mask in public to keep nose and mouth covered, and washing hands frequently especially before eating and after using the bathroom. Return to clinic if you develop any symtpoms of concern to be rescreened or go to the emergency room if you are having concerning symptoms for COVID-19. 09/03/2022 Opioid abuse, uncomplicated (ICD-10 - F11.10) On recovery 02/26/2023 Anxiety disorder, unspecified (ICD-10 - F41.9) soon to lose group support. 09/03/2022 Thyrotoxicosis, unspecified without thyrotoxic crisis or storm (ICD-10 - E05.90) with [facility] She is not sure of her medication. She will call back with information Follows up with endocrine at [facility] in [facility] Wants to establish care with an endocrine office in [place] 09/03/2022 Migraine without aura, not intractable, without status migrainosus (ICD-10 - G43.009) [facility]rologist- [facility] Reports occurence at least 2x/week Follows up with Dr. Mann at [facility], Neuro 09/03/2022 Vitamin D deficiency, unspecified (ICD-10 - E55.9) will recheck Vit D level today 09/03/2022 Body mass index [BMI] 24.0-24.9, adult (ICD-10 - Z68.24) Normal BMI 09/03/2022 Insomnia, unspecified (ICD-10 - G47.00) Followed by [facility] help 09/03/2022 Post-traumatic stress disorder, chronic (ICD-10 - F43.12) Followed by [facility] Will establish care with [facility] 09/03/2022 Chronic pain syndrome (ICD-10 - G89.4) Followed by endocrine Present Tx Adequate 09/03/2022 Dorsalgia, unspecified (ICD-10 - M54.9) Present Tx adequate 09/03/2022 Menopausal and female climacteric states (ICD-10 - N95.1) s/p oophorectomy for ovarian cancer s/p hysterectomy. 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 Discussed current medications as to indications, actions and side effects. Reviewed risks benefits of treatment versus non treatment. Medication education provided. Patient given opportunity to ask questions. Patient gives informed consent to proceed with prescribed treatment. 1. Mass HYDROGRAPHICAL TECHNICAL OFFICER reviewed: see exam 2. Medications: 3. Cont psychotherapy 4. Labs/Procedures: 5. Exercise/Nutrition: sleep, regular exercise and nutrition all have a direct impact on our health and well-being. Keeping them in balance is especially important when we face stressful times in our lives. Eat balanced meals, get 6-8 hours of sleep a night, daily walking as able. 6. Understands plan and verbalizes agreement, allowed time for clarifying questions. Time spent in visit: minutes 05/29/2023 Other 09/03/2022 Other 09/18/2022 Other Time spent in visit: 5 minutes 10/30/2022 Other 11/07/2022 Other NOTE : TIME SPENT ON VISIT: 25 minutes 02/26/2023 Other writing rx for shower bench and commode 05/14/2023 Other 05/15/2023 Other 05/15/2023 Other 06/19/2023 Other 07/24/2023 Other [facility] Number: open 24 hours [phone]. Appt changed by client to Telehealth: Provider: CHE Vergara Clt: anil Advocate : none Telehealth: 30 minutes PLAN OF TREATMENT Pending Test Test Name Order Date EKG 03/24/2019 EKG 01/27/2017 HIV 1/2 ANTIGEN/ANTIBODY,FOURTH GENERATI ON W/RFL 01/02/2017 HEPATITIS PANEL, ACUTE W/REFLEX TO CONFI RMATION 01/02/2017 COMPREHENSIVE METABOLIC PANEL-[facility] 12/12 CHOLESTEROL, TOTAL 01/02/2017 CBC (INCLUDES DIFF/PLT) AUTO DIFF - NO P ATH REVIEW 01/02/2017 QUANTIFERON(R)-TB GOLD 10/21/2017 FECAL GLOBIN BY IMMUNOCHEMISTRY 09/03/19 VITAMIN B12 06/25/2022 THYROID PROFILE 03/24/2019 TRICHOMONAS 03/31/2019 URINE CULTURE 09/14/2019 URINE CULTURE 10/03/2019 Marisela Screening Digital 09/12/2021 Marisela Screening Digital 09/03/2022 HEPATITIS A,B,C PROFILE 09/03/2022 Future Test Test Name Order Date VITAMIN D, 25-HYDROXY 09/12/2021 Insurance Providers Payer Name Payer Address Payer Phone Subscriber Number Group Number Insured Name Patient Relationship to Insured Coverage Start Date Coverage End Date [facility] [address] [address] [place] [address] [id number] Ld Mosley Self - patient is the insured 0 [place] Medicare Part [place] [employer] [address] [place] [address] [id number] Ld Mos[place] Self - patient is the insured 0 [place] Medicaid Standard [address] [place] [address] [id number] Ld Mosley Self - patient is the insured 0 MEDICAL (GENERAL) HISTORY Medical History History ICD Code asthma arthritis in L shoulder and hips hearing impaired due to freq uent infections / pt reports about 40% hearing bilateral neuropathy fingers ~ neck , L3/4/5 compr ession ~ Left foot EKG: Rt BBB Substance use disorder: MAR Methadone [facility] Nicotine use Intracranial space-occupying lesion found on diagnostic imaging of central nervous system R90.0 Abnormal findings on diagnostic imaging of other specified body structures R93.8 U/S of Abdomen 09/10/19 F2-3 mild to mode rate fibrosis F2-3 Thyroid nodules Rt and Lt--US thyroid 2019 Referred to Endocrine Ovarian cancer 2019 Pain in leg, unspecified M79.606 Dysmenorrhea, unspecified N94.6 Sleepwalking [somnambulism] F51.3 Malignant neoplasm of unspecified ovary C56.9 Drug induced constipation (resolved 08/14) undefined Bipolar D/O Thyrotoxicosis, unspecified without thyr otoxic crisis or storm E05.90 Surgical History Surgery Date(Month/Year) Right knee menisceal repair surgery 05/14 023 Left knee laproscopic tendon repair kay nstruction 04/2023 Total Laparoscopic Hysterectomy with Cedrick ateral Salpingo Oophorectomy 02/17/20 Hospitalization History Reason Date(Month/Year) OD, Section [facility] and then to [facility] 07/2022 [facility] ~ Rt ovary mass [facility] operative no te-scanning Benign pathology 02/17/2020 [facility], vomiting with nausea, dc to home 08/12/19 [facility] ER, acute serous right o titis media; acute serous left otitis media. dc to home 05/23/19 section 02/04/19 [facility] and psych
--- OUTSIDE RECORDS SUMMARY | 2023-08-02 10:19 | XMS_ITS | Continuity of Care Document ---
Author Name Unknown Organization [facility] Onc[facility] y Address [address] [place] [address]- Care Team Providers Care Project Intern Name Role Phone Tee BAUMANN, Silvina Primary Care Physician [phone] Encounter [facility] Date(s): 03/15/20 - 05/12/20 [facility] Oncology [address] [place] [address]- [facility] Attending Physician: Jose Elias Ibanez MD Admitting Physician: Jose Elias Ibanez MD Referring Physician: Silvina Oliveira NP Allergies, Adverse Reactions, Alerts Substance Reaction Severity [...] 03/15/20 11:54:00 EDT, Route to Pharmacy Electronically, [facility] #[id number], 178.5, cm, 03/15/20 11:34:00 EDT, Height, 87.7... Start Date: 03/15/20 Status: Ordered [place] 300 mg, By Mouth, 2 times a [...] Refills, Maintenance, 02/27/20 12:31:00 EDT, REC Powder, [facility] #[id number], 17 Gm By Mouth 3 times a [...] tablet, 0 Refills,Maintenance, 02/27/20 12:31:00 EDT, Tablet, [facility] #[id number], 182.88, cm, 02/27/20 10:19:00 EDT, Height, 87.1, [...] 02/27/20 12:30:00 EDT, Route to Pharmacy Electronically, [facility] #[id number], 182.88, cm, 02/27/20 10:19:00 EDT, Height, 87.1, [...]
--- OUTSIDE RECORDS SUMMARY | 2023-08-02 10:19 | XMS_ITS | Continuity of Care Document ---
Author Name Unknown Organization [facility] Address [address] [place] [address]- Care Team Providers Care Fish Hatchery Manager Name Role Phone Tee BAUMANN, Silvina Primary Care Physician [place] [facility] [place] 08/12[place]22 - 11/02/22 [facility] [address] [place] [id number] Attending Physician: Yesenia Vaca MD Admitting Physician: Yesenia Vaca MD Referring Physician: Silvina Oliveira NP Allergies, [...] 03/15/20 11:54:00 EDT, Route to Pharmacy Electronically, [facility] #[id number], 178.5, cm, 03/15/20 11:34:00 EDT, Height, 87.7... [...] 07/03/22 21:41:00 EST, Route to Pharmacy Electronically, [facility]/pharmacy #[id number], Partial fill upon patient request if the prescription is for a schedule II opioid drug... Start Date: 07/03/22 Stop Date: 10/01/22 Status: Ordered MiraLax oral powder for reconstitution = 17 Gm, By Mouth, 3 times a day, dissolve in water before taking, # 255 Gm, 0 Refills, Maintenance, 02/27/20 12:31:00 EDT, REC Powder, [facility] #[id number], 17 Gm By Mouth 3 times a [...] tablet, 0 Refills,Maintenance, 02/27/20 12:31:00 EDT, Tablet, [facility] #[id number], 182.88, cm, 02/27/20 10:19:00 EDT, Height, 87.1, [...] 02/27/20 12:30:00 EDT, Route to Pharmacy Electronically, [facility] #[id number], 182.88, cm, 02/27/20 10:19:00 EDT, Height, 87.1, [...] Follow-up examination after gynecological surgery Confirmed Active Social History Social History Type Response Smoking Status 5-9 cigarettes (betw een 1/4 to 1/2 pack)/day in last 30 days entered on: 08/23/19 Sex Patient Care team information Care Team Personnel Name: Silvina Oliveira NP Position: Reference Physician Member Role: PCP Address: Address: [address] [place] [address]- Care Team Related Persons Name: ISATU BUCKNER Address: home [address] [place] [address] Name: TU ANNE Address: home [address] [place] [id number]
--- OUTSIDE RECORDS SUMMARY | 2023-08-02 10:19 | XMS_ITS | Continuity of Care Document ---
Author Name Unknown Organization [facility] Onc[facility] y Address [address] [place] [address]- Care Team Providers Care Manager Environmental Name Role Phone Tee BAUMANN, Silvina Primary Care Physician [phone] [facility] Date(s): 04/12/20 - 05/12/20 [facility] Oncology [address] [place] [address]- [facility] Attending Physician: Evelia BAUMANN, Miya Ojeda Admitting Physician: Evelia BAUMANN, Miya Ojeda Referring Physician: Silvina Oliveira NP Allergies, Adverse [...] 03/15/20 11:54:00 EDT, Route to Pharmacy Electronically, [facility] #[id number], 178.5, cm, 03/15/20 11:34:00 EDT, Height, 87.7... Start Date: 03/15/20 Status: Ordered [place] 300 mg, By Mouth, 2 times a [...] Refills, Maintenance, 02/27/20 12:31:00 EDT, REC Powder, [facility] #[id number], 17 Gm By Mouth 3 times a [...] tablet, 0 Refills,Maintenance, 02/27/20 12:31:00 EDT, Tablet, [facility] #[id number], 182.88, cm, 02/27/20 10:19:00 EDT, Height, 87.1, [...] 02/27/20 12:30:00 EDT, Route to Pharmacy Electronically, [facility] #[id number], 182.88, cm, 02/27/20 10:19:00 EDT, Height, 87.1, [...]
--- OUTSIDE RECORDS SUMMARY | 2023-08-02 10:20 | XMS_ITS | Continuity of Care Document ---
Author Name Unknown Organization [facility] Address [address] [place] [address]- Care Team Providers Care Almond Paste Mixer Name Role Phone Grzegorz MORRIS, Magen Lazo Primary Care Physician Encounter [facility] Date(s): 05/21/23 - 05/28/23 [facility] [address] [place], [place] [address] Attending Physician: Joel Avelar MD Referring Physician: Isidoro Velásquez MD Allergies, Adverse Reactions, Alerts Substance Reaction Severity Status amoxicillin rash Active penicillins C/O: itching Active Immunizations Given and Recorded Vaccine Date Status Refusal Reason SARS-CoV-2 (COVID-19) mRNA BNT-162b2 vac 02/17/21 Recorded SARS-CoV-2 (COVID-19) mRNA BNT-162b2 vac 01/27/21 Recorded Medications aspirin 325 mg oral capsule 1 capsule = 325 mg, By Mouth, Daily, # 30 capsule, 0 Refills, Maintenance, 05/25/23 11:53:00 EST, Capsule, Partial fill upon patient request if the prescription is for a schedule II opioid drug. Start Date: 05/25/23 Stop Date: 06/08/23 Status: Ordered divalproex sodium 500 mg oral enteric coated tablet TAKE 1 TABLET BY MOUTH TWICE A DAY FOR 90 DAYS Start Date: 03/19/23 Status: Ordered Dulera Inhalation, 2 times a day, 0 Refills, Maintenance, 05/21/23 11:02:00 EST, Partial fill upon patientrequest if the prescription is for a schedule II opioid drug. Start Date: 05/21/23 Status: Ordered Excedrin By Mouth, as needed, 0 Refills, Maintenance, 05/21/23 11:01:00 EST, Partial fill upon patient request if the prescription is for a schedule II opioid drug. Start Date: 05/21/23 Status: Ordered Lamotrigine 25 mg, By Mouth, Daily at bedtime, Refills 0, Maintenance, 05/21/23 10:59:00 EST, Partial fill uponpatient request if the prescription is for a schedule II opioid drug. Start Date: 05/21/23 Status: Ordered lamotrigine 25 mg oral tablet 50 mg, 2, tablet, By Mouth, Daily, # 180 tablet, Refills 0, Maintenance, 03/19/23 9:03:00 EDT, Partial fill upon patient request if the prescription is for a schedule II opioid drug. Start Date: 03/19/23 Status: Ordered Methadone = 100 mg, Daily at bedtime, 0 Refills, Maintenance, 05/21/23 11:01:00 EST, Partial fill upon patient request if the prescription is for a schedule II opioid drug. Start Date: 05/21/23 Status: Ordered Methadone = 120 mg, By Mouth, Daily in AM, 0 Refills, Maintenance, 08/23/19 10:28:00 EST, Partial fill upon patient request Start Date: 08/23/19 Status: Ordered mirtazapine 15 mg oral tablet 1 tablet = 15 mg, By Mouth, Daily at bedtime, # 30 tablet, 0 Refills, Maintenance, 03/19/23 9:03:00EDT, Tablet, Partial fill upon patient request if the prescription is for a schedule II opioid drug. Start Date: 03/19/23 Status: Ordered naloxone 4 mg/0.1 mL nasal spray 0 Refills, Maintenance, 03/19/23 9:02:00 EDT, Partial fill upon patient request if the prescriptionis for a schedule II opioid drug. Start Date: 03/19/23 Status: Ordered ondansetron 4 mg oral tablet, disintegrating 1 tablet = 4 mg, By Mouth, Every 6 hours, PRN Nausea & Vomiting, # 12 tablet, 0 Refills, Maintenance, 03/19/23 9:02:00 EDT, Tablet, Partial fill upon patient request if the prescription is for a schedule II opioid drug. Start Date: 03/19/23 Status: Ordered oxyCODONE 5 mg oral tablet Refills 0, Tot. Refills 0, Maintenance, 03/19/23 9:02:00 EDT, Partial fill upon patient request if the prescription is for a schedule II opioid drug. Start Date: 03/19/23 Status: Ordered traZODone 50 mg oral tablet 2 tablets, By Mouth, Daily at bedtime, # 30 tablet, Refills 0, Maintenance, 03/19/23 9:03:00 EDT, Partial fill upon patient request if the prescription is for a schedule II opioid drug. Start Date: 03/19/23 Status: Ordered Problem List Condition Confirmation Course [...] Most recent to oldest [Reference Range]: 1 Height 182 cm (05/21/23 9:48 AM) Weight 98.8 kg (05/21/23 9:48 AM) Oxygen Saturation [94-100 %] 91 % *L* (05/21/23 9:48 AM) Pulse Rate [55-90 bpm] 89 bpm (05/21/23 9:48 AM) Body Mass Index [18.5-24.99 kg/m2] 29.83 kg/m2 *H* (05/21/23 9:48 AM) Blood Pressure [90-138/55-84 mm Hg] 96/6 6mm Hg (05/21/23 9:48 AM) Respiratory Rate [16-30 br/min] 18 br/mi n (05/21/23 9:48 AM) Mode of Delivery (Oxygen) Room air (05/21/23 9:48 AM) Blood pressure sites Arm, right (05/21/23 9:48 AM) Weight Obtained Via Standing scale (05/21/23 9:48 AM) Social History Social History Type Response Smoking Status 5-9 cigarettes (betw een 1/4 to 1/2 pack)/day in last 30 days entered on: 08/23/19 Sex Patient Care team information Care Team Personnel Name: Magen Lantigua MD Position: S Physician - Primary Care Member Role: PCP Address: Address: [address] [place] [address]- Care Team Related Persons Name: ISATU BUCKNER Address: home [address] [place] [address] Name: TU ANNE Address: home [address] [place] [address]
--- OUTSIDE RECORDS SUMMARY | 2023-08-02 10:20 | XMS_ITS | Continuity of Care Document ---
Author Name Unknown Organization [facility] Onc[facility] Address [address] [place] [address]- Care Team Providers Care Mental Hygienist Name Role Phone Tee BAUMANN, Silvina Primary Care Physician En[place] [facility] Date(s): 02/29/20 - 03/30/20 [facility] Oncology [address] [place] [address] [facility] Allergies, Adverse Reactions, Alerts Substance Reaction Severity [...] 03/15/20 11:54:00 EDT, Route to Pharmacy Electronically, [facility] #[id number], 178.5, cm, 03/15/20 11:34:00 EDT, Height, 87.7... Start Date: 03/15/20 Status: Ordered [place] 300 mg, By Mouth, 2 times a [...] Refills, Maintenance, 02/27/20 12:31:00 EDT, REC Powder, [facility] #[id number], 17 Gm By Mouth 3 times a [...] tablet, 0 Refills,Maintenance, 02/27/20 12:31:00 EDT, Tablet, [facility] #[id number], 182.88, cm, 02/27/20 10:19:00 EDT, Height, 87.1, [...] 02/27/20 12:30:00 EDT, Route to Pharmacy Electronically, [facility] #[id number], 182.88, cm, 02/27/20 10:19:00 EDT, Height, 87.1, [...]
--- OUTSIDE RECORDS SUMMARY | 2023-08-02 10:20 | XMS_ITS | Continuity of Care Document ---
Author Name Unknown Organization [facility] MACHINE OPERATOR Oncolog y Address [address] [place] [address]- Care Team Providers Care Watch Assembly Inspector Name Role Phone Tee BAUMANN, Silvina Primary Care Physician Encounter [facility] Date(s): 08/23/19 - 11/17/19 [facility] [facility] [facility]PER[facility] Oncology [address] [place] [address]- [facility] Attending Physician: Jose Elias Ibanez MD Admitting Physician: Jose Elias Iabnez MD Referring Physician: Silvina Oliveira NP Allergies, [...] 08/23/19 10:29:00EST Start Date: 08/23/19 Status: Ordered [place] By Mouth, Refills 0, Maintenance, 08/23/19 10:27:00 [...]
--- OUTSIDE RECORDS SUMMARY | 2023-08-02 10:20 | XMS_ITS | Continuity of Care Document ---
Author Name Unknown Organization [facility] Address [address] [place] [address]- Care Team Providers Care Family Readiness Support Assistant Name Role Phone Tee BAUMANN, Silvina Primary Care Physician Encounter [facility] Date(s): 07/10/22 - 08/09/22 [facility] Diabetes [address] [place] [id number] Allergies, Adverse Reactions, Alerts Substance Reaction Severity [...] 03/15/20 11:54:00 EDT, Route to Pharmacy Electronically, [facility] #[id number], 178.5, cm, 03/15/20 11:34:00 EDT, Height, 87.7... Start Date: 03/15/20 Status: Ordered ibuprofen 800 mg oral tablet 800 mg, 1, tablet, By Mouth, 3 times a day, # 270 tablet, Refills 0, Maintenance, 08/23/19 10:29:00EST Start Date: 08/23/19 Status: Ordered [place] 300 mg, By Mouth, 2 times a [...] 21:41:00 EST, Route to Pharmacy Electronically, [facility]/pharmacy #[id number], Partial fill upon patient request if the prescription is for a schedule II opioid drug... Start Date: 07/03/22 Stop Date: 10/01/22 Status: Ordered MiraLax oral powder for reconstitution = 17 Gm, By Mouth, 3 times a day, dissolve in water before taking, # 255 Gm, 0 Refills, Maintenance, 02/27/20 12:31:00 EDT, REC Powder, [facility] #[id number], 17 Gm By Mouth 3 times a [...] tablet, 0 Refills,Maintenance, 02/27/20 12:31:00 EDT, Tablet, [facility] #[id number], 182.88, cm, 02/27/20 10:19:00 EDT, Height, 87.1, [...] 02/27/20 12:30:00 EDT, Route to Pharmacy Electronically, [facility] #[id number], 182.88, cm, 02/27/20 10:19:00 EDT, Height, 87.1, [...] Reference Physician Member Role: PCP Address: Address: [address] [place] [address]- Care Team Related Persons Name: ISATU BUCKNER Address: home [address] [place] [address] Name: TU ANNE Address: home [address] [place] [address]
--- OUTSIDE RECORDS SUMMARY | 2023-08-02 10:20 | XMS_ITS | Patient Health Record ---
Author Name Unknown Organization [facility] Address [address] [place] [address] Care Team Providers Care Make Up Operator Name Role Phone Kenn Mujica Primary Care Provider [phone] Kenn Mujica MD Unavailable Unavailable ALLERGIES Allergen (clinical drug ingredient) Drug/Non Drug Allergy documented on EMR Reaction Allergy Type Onset Date Status amoxicillin Amoxicillin Unknown Drug Allergy Act jareth Penicillin Unknown Drug Allergy Active REASON FOR REFERRAL No Information MEDICATIONS Medication SIG (Take, Route, Frequency, Duration) Notes Start Date End Date Status Albuterol Sulfate (5 MG/ML) 0.5% 0.5 ml Inhalation Three times a day Active Ibuprofen 800 MG 1 tablet Orally Thre e times a day as needed for 30 days Active Nicotine Step 2 14 MG/24HR 1 patch to skin Transdermal Once a day for 30 day(s) 05/29/2014 Not-Taking ProAir HFA 108 (90 Base) MCG/ACT 2 puffs as needed Inhalation every 4 hrs for 1 Month Supply Active DuoNeb 0.5-2.5 (3) MG/3ML 3 ml Inhalation Dx 493.90 Four times a day for 30 days 05/29/2014 Active Motrin 800 MG 1 tablet Orally twic e a day as needed for 30 Active Nebulizer n/a as directed DX. 493. 90 as directed for as needed 05/29/2014 Active traZODone HCl 50 MG Orally Active Neurontin 800 MG 1 tablet Orally Thre e times a day as needed for 30 days Active CeleXA 20 mg 1 tablet Orally Once a day for 30 day(s) 04/03/2015 Active Compazine 25 mg 1 suppository as nee ded Rectal Twice a day prn for 7 days 02/26/2015 Active OxyIR 5 MG 1 capsule as needed Orally Once a day for 30 days 05/29/2014 Active SOCIAL HISTORY Tobacco Use: Social History Observation Description Date Details (start date - stop date) Current some da y smoker NA - NA Sex Assigned At : Social History Observation Description Sex Assigned At Unknown Tobacco Use/Smoking Question Answer Notes Patient is a: current some day smoker Patient is a: current some day smoker PROBLEMS Problem Type ICD Code Onset Dates Problem Status W/U Status Risk SNOMED Code Notes Problem Impacted cerumen (380.4) Active confirmed 37615679 Problem Asthma (493.90) Active confirmed Asthma (807702895) Problem Back pain (724.5) Active confirmed Back pain (307151251) Problem Smoking (305.1) Active confirmed 743802 02 Problem Degenerative disk disease (722.6) Active confirmed 90924909 Problem Otalgia (388.70) Active confirmed 86310 004 PLAN OF TREATMENT Pending Test Test Name Order Date CMP([facility]) 05/29/2014 BMP([facility]) 12/25/2014 LIVER/HEPATIC ([facility]) 12/25/2014 Lipid Profile ([facility]) 05/29/2014 TSH([facility]) 05/29/2014 TSH([facility]) 12/25/2014 MRI CERVICAL SPINE 10/03/2014 MRI LUMBAR SPINE 05/29/2014 DRUG TOX MONITORING 9 W/CONF, URINE ([facility] g Screen) 07/03/2014 DRUG TOX MONITORING 9 W/CONF, URINE ([facility] g Screen) 08/14/2014 DRUG TOX MONITORING 9 W/CONF, URINE ([facility] Francisco g Screen) 09/07/2014 DRUG TOX MONITORING 9 W/CONF, URINE 11/10 CBC with Differential (AUTO) 05/29/2014 CBC with Differential (AUTO) 12/25/2014 Future Test Test Name Order Date MRI CERVICAL SPINE 01/03/2015 BMP([facility]) 04/03/2015 LIVER/HEPATIC ([facility]) 04/03/2015 CBC with Differential (AUTO) 04/03/2015 Insurance Providers Payer Name Payer Address Payer Phone Subscriber Number Group Number Insured Name Patient Relationship to Insured Coverage Start Date Coverage End Date Medicare [place] Part B [address] [place] [address] [id number] Ld Mosley Self - patient is the insured Medicaid [address] [place] [phone] [id number] Ld Mosley Self - patient is the insured Medicaid [employer] [address] [place] [phone] [id number] YAEL Mosley Chi Self - patient is the insured MEDICAL (GENERAL) HISTORY Medical History History ICD Code asthma Surgical History Surgery Date(Month/Year) tonsillectomy bilateral tubes septoplasty
--- OUTSIDE RECORDS SUMMARY | 2023-08-02 10:20 | XMS_ITS | Continuity of Care Document ---
Author Name Unknown Organization [facility] Address [address] [place] [address]- Care Team Providers Care Welder Apprentice Name Role Phone Grzegorz MORRIS, Magen Lazo Primary Care Physician Encounter [facility] Date(s): 05/21/23 - 06/20/23 [facility] [address] [place], [place] [address] Attending Physician: Lamin Dowling Admitting Physician: AdmLamin [...] Team Personnel Name: Magen Lantigua MD Position: [facility] Physician - Primary Care Member Role: PCP Address: Address: [address] [place] [address]- Care Team Related Persons Name: ISATU BUCKNER Address: home [address] [place] [address] Name: TU ANNE Address: home [address] [place] [address]
--- OUTSIDE RECORDS SUMMARY | 2023-08-02 10:20 | XMS_ITS | Continuity of Care Document ---
Author Name Unknown Organization [facility] ter Address [address] [place] [address]- Care Team Providers Care Elevator Installer Name Role Phone Tee BAUMANN, Silvina Primary Care Physician Encounter [facility] Date(s): 08/27/19 - 08/27/[address] [address]- [facility] Attending Physician: Jose Elias Ibanez MD Allergies, [...] 08/23/19 10:29:00EST Start Date: 08/23/19 Status: Ordered [place] By Mouth, Refills 0, Maintenance, 08/23/19 10:27:00 [...]
--- OUTSIDE RECORDS SUMMARY | 2023-08-02 10:20 | XMS_ITS | Continuity of Care Document ---
Author Name Unknown Organization [facility] Address [address] [place] [address]- Care Team Providers Care Data Consultant Name Role Phone Tee BAUMANN, Silvina Primary Care Physician [phone] En[facility] Date(s): 03/19/23 - 04/18/23 [facility] [address] [place], [place] [address] Attending Physician: Lamin Dowling Admitting Physician: Lamin Dowling Referring Physician: AdmtrLamin Allergies, Adverse Reactions, Alerts Substance Reaction Severity Status amoxicillin rash Active penicillins C/O: itching Active Immunizations Given and Recorded Vaccine Date Status Refusal Reason SARS-CoV-2 (COVID-19) mRNA BNT-162b2 vac 02/17/21 Recorded SARS-CoV-2 (COVID-19) mRNA BNT-162b2 vac 01/27/21 Recorded Medications divalproex sodium 500 mg oral enteric coated tablet TAKE 1 TABLET BY MOUTH TWICE A DAY FOR 90 DAYS Start Date: 03/19/23 Status: Ordered lamotrigine 25 mg oral tablet 25 mg, 1, tablet, By Mouth, 2 times a day, # 180 tablet, Refills 0, Maintenance, 03/19/23 9:03:00 EDT, Partial fill upon patient request if the prescription is for a schedule II opioid drug. Start Date: 03/19/23 Status: Ordered Methadone = 85 mg, By [...] 1, tablet, By Mouth, Daily at bedtime, # 30 tablet, Refills 0, Maintenance, 03/19/23 9:03:00EDT, Partial fill upon patient request if the [...] Active Lack of adequate sleep Confirmed Active Obese class I Confirmed Active Overweight Confirmed Active Pelvic pain [...] Reference Physician Member Role: PCP Address: Address: [address] [place] [address]- Care Team Related Persons Name: ISATU BUCKNER Address: home [address] [place] [address] Name: TU ANNE Address: home [address] [place] [address]
--- OUTSIDE RECORDS SUMMARY | 2023-08-02 10:20 | XMS_ITS | Continuity of Care Document ---
Author Name Unknown Organization [facility] Address [address] [facility], [address] d Floor, [address] [place] [address]- Care Team Providers Care Cement Mixer Name Role Phone Tee HISTOLOGIST, Silvina Primary Care Physician Encounter [facility] Date(s): 09/09/22 - 10/09/22 [facility] [address], [address] Floor, [address] [place] [address] Allergies, Adverse Reactions, Alerts Substance Reaction Severity [...] 03/15/20 11:54:00 EDT, Route to Pharmacy Electronically, [facility] #27403, 178.5, cm, 03/15/20 11:34:00 EDT, Height, 87.7... [...] 07/03/22 21:41:00 EST, Route to Pharmacy Electronically, [facility]/pharmacy #[id number], Partial fill upon patient request if the prescription is for a schedule II opioid drug... Start Date: 07/03/22 Stop Date: 10/01/22 Status: Ordered MiraLax oral powder for reconstitution = 17 Gm, By Mouth, 3 times a day, dissolve in water before taking, # 255 Gm, 0 Refills, Maintenance, 02/27/20 12:31:00 EDT, REC Powder, [facility] #30766, 17 Gm By Mouth 3 times a [...] tablet, 0 Refills,Maintenance, 02/27/20 12:31:00 EDT, Tablet, [facility] #75535, 182.88, cm, 02/27/20 10:19:00 EDT, Height, 87.1, [...] 02/27/20 12:30:00 EDT, Route to Pharmacy Electronically, [facility] #[id number], 182.88, cm, 02/27/20 10:19:00 EDT, Height, 87.1, [...] Physician Member Role: PCP Address: Address: [address] [place] [address]- Care Team Related Persons Name: ISATU BUCKNER Address: home [address] [place] [address] Name: TU ANNE Address: home [address] [place] [address]
--- OUTSIDE RECORDS SUMMARY | 2023-08-02 10:20 | XMS_ITS | Continuity of Care Document ---
Author Name Unknown Organization [facility] Address [address] [place] [address]- Care Team Providers Care Retail Operations Manager Name Role Phone Tee PUBLIC HEALTH DOCTOR, Silvina Primary Care Physician [place] [facility] Date(s): 02/11/23 - 03/13/23 [facility] [address] [place] [address] Allergies, Adverse Reactions, Alerts Substance Reaction Severity [...] 03/15/20 11:54:00 EDT, Route to Pharmacy Electronically, [facility] #48804, 178.5, cm, 03/15/20 11:34:00 EDT, Height, 87.7... [...] 07/03/22 21:41:00 EST, Route to Pharmacy Electronically, [facility]/pharmacy #1094, Partial fill upon patient request if the prescription is for a schedule II opioid drug... Start Date: 07/03/22 Stop Date: 10/01/22 Status: Ordered MiraLax oral powder for reconstitution = 17 Gm, By Mouth, 3 times a day, dissolve in water before taking, # 255 Gm, 0 Refills, Maintenance, 02/27/20 12:31:00 EDT, REC Powder, [facility] #91513, 17 Gm By Mouth 3 times a [...] tablet, 0 Refills,Maintenance, 02/27/20 12:31:00 EDT, Tablet, [facility] #28959, 182.88, cm, 02/27/20 10:19:00 EDT, Height, 87.1, [...] 02/27/20 12:30:00 EDT, Route to Pharmacy Electronically, [facility] #55226, 182.88, cm, 02/27/20 10:19:00 EDT, Height, 87.1, [...] Reference Physician Member Role: PCP Address: Address: [address] [place] [address]- Care Team Related Persons Name: ISATU BUCKNER Address: home [address] [place] [address] Name: TU ANNE Address: home [address] [place] [address]
--- OUTSIDE RECORDS SUMMARY | 2023-08-02 10:20 | XMS_ITS | Continuity of Care Document ---
Author Name Unknown Organization [facility] Oncolog y Address [address] [place] [address]- Care Team Providers Care Automatic Door Mechanic Name Role Phone Tee BAUMANN, Silvina Primary Care Physician [phone] En[facility] [place] [id number] Date(s): 04/12/20 - 05/12/20 [facility] On[facility] [address] [place] [address]- [facility] Attending Physician: Lamin Dowling Admitting Physician: AdmLamin alvarez Referring Physician: Admtr ArChristiano Allergies, Adverse Reactions, Alerts Substance Reaction [...] 03/15/20 11:54:00 EDT, Route to Pharmacy Electronically, [facility] #[id number], 178.5, cm, 03/15/20 11:34:00 EDT, Height, 87.7... Start Date: 03/15/20 Status: Ordered [place] 300 mg, By Mouth, 2 times a [...] Refills, Maintenance, 02/27/20 12:31:00 EDT, REC Powder, [facility] #25914, 17 Gm By Mouth 3 times a [...] tablet, 0 Refills,Maintenance, 02/27/20 12:31:00 EDT, Tablet, [facility] #06797, 182.88, cm, 02/27/20 10:19:00 EDT, Height, 87.1, [...] 02/27/20 12:30:00 EDT, Route to Pharmacy Electronically, [facility] #90660, 182.88, cm, 02/27/20 10:19:00 EDT, Height, 87.1, [...]
--- OUTSIDE RECORDS SUMMARY | 2023-08-02 10:20 | XMS_ITS | Continuity of Care Document ---
Author Name Unknown Organization [facility] ter Address [address] [place] [address]- Care Team Providers Care It Assistant Name Role Phone Tee BAUMANN, Silvina Primary Care Physician Encounter [facility] Date(s): 02/04/23 - 02/04/[address] [address] Attending Physician: Not on Staff, Attending MD Allergies, Adverse Reactions, Alerts Substance Reaction [...] 03/15/20 11:54:00 EDT, Route to Pharmacy Electronically, [facility] #[id number], 178.5, cm, 03/15/20 11:34:00 EDT, Height, 87.7... [...] 07/03/22 21:41:00 EST, Route to Pharmacy Electronically, [facility]/pharmacy #1094, Partial fill upon patient request if the prescription is for a schedule II opioid drug... Start Date: 07/03/22 Stop Date: 10/01/22 Status: Ordered MiraLax oral powder for reconstitution = 17 Gm, By Mouth, 3 times a day, dissolve in water before taking, # 255 Gm, 0 Refills, Maintenance, 02/27/20 12:31:00 EDT, REC Powder, [facility] #55461, 17 Gm By Mouth 3 times a [...] tablet, 0 Refills,Maintenance, 02/27/20 12:31:00 EDT, Tablet, [facility] #22556, 182.88, cm, 02/27/20 10:19:00 EDT, Height, 87.1, [...] 02/27/20 12:30:00 EDT, Route to Pharmacy Electronically, [facility] #[id number], 182.88, cm, 02/27/20 10:19:00 EDT, Height, 87.1, [...] Reference Physician Member Role: PCP Address: Address: [address] [place] [address]- Care Team Related Persons Name: ISATU BUCKNER Address: home [address] [place] [address] Name: TU ANNE Address: home [address] [place] [address]
--- OUTSIDE RECORDS SUMMARY | 2023-08-02 10:20 | XMS_ITS | Continuity of Care Document ---
Author Name Unknown Organization [facility] ter Address [address] [place] [address]- Care Team Providers Care Floor Renovator Name Role Phone Tee BAUMANN, Silvina Primary Care Physician [place] [facility] [place] 11/17/22 - 11/18/[address] [address]- Discharge Disposition: A-D/C Walkout Attending Physician: Not on Staff, Attending MD Admitting Physician: Not on Staff, Admitting MD Referring Physician: Not on Staff, Referring [...] 03/15/20 11:54:00 EDT, Route to Pharmacy Electronically, [facility] #[id number], 178.5, cm, 03/15/20 11:34:00 EDT, Height, 87.7... [...] 07/03/22 21:41:00 EST, Route to Pharmacy Electronically, [facility]/pharmacy #4164, Partial fill upon patient request if the prescription is for a schedule II opioid drug... Start Date: 07/03/22 Stop Date: 10/01/22 Status: Ordered MiraLax oral powder for reconstitution = 17 Gm, By Mouth, 3 times a day, dissolve in water before taking, # 255 Gm, 0 Refills, Maintenance, 02/27/20 12:31:00 EDT, REC Powder, [facility] #67932, 17 Gm By Mouth 3 times a [...] tablet, 0 Refills,Maintenance, 02/27/20 12:31:00 EDT, Tablet, [facility] #83352, 182.88, cm, 02/27/20 10:19:00 EDT, Height, 87.1, [...] 02/27/20 12:30:00 EDT, Route to Pharmacy Electronically, [facility] #[id number], 182.88, cm, 02/27/20 10:19:00 EDT, Height, 87.1, [...] Exam Date Time Procedure Performing Provider Status 11/17/22 2:56 PM Knee 1 or 2 Views Right Rosa Duran; Modified Notes: (Knee 1 or 2 Views Right) Reason For Exam: with Pain;Trauma RESULT: Knee 1 or 2 Views Right Knee 1 or 2 Views Right, 2 views Hx of Present Illness: co R iknee pain swelling after basically sitting on my foot while having seizure 2 weeks ago, similar episode 2 days ago, has seen ortho and is on pain meds; Reason: Trauma; with Pain; Clinical Question(s): Fracture COMPARISON: None. FINDINGS: There is no evidence of acute or healing fracture, dislocation or bone lesion. No arthritic changes. No osteochondral defects or intra-articular loose bodies. Moderate suprapatellar bursa effusion unchanged. IMPRESSION: No acute fracture or dislocation seen. Moderate right suprapatellar bursa effusion is either unchanged or slightly decreasing in size compared to the prior examination. WSN: [id number] Ordering Physician: David Smith MD Dictated By: Patrick Levy MD, V Dictated Date/Time: 11/17/22 3:00 pm Reviewed By: Patrick Levy MD, V Signed By: Patrick Levy MD, V Signed Date/Time: 11/17/22 3:00 pm Transcribed By: MERLENE Transcribed Date/Time: 11/17/22 2:59 pm Vital Signs Most recent to oldest [Reference Range]: 1 2 Height 180 cm (11/17/22 3:45 PM) Oxygen Saturation [94-100 %] 98 % (11/18/22 2:38 AM) 97 % (11/17/22 3:45 PM) Pulse Rate [55-90 bpm] 66 bpm (11/18/22 2:38 AM) 68 bpm (11/17/22 3:45 PM) Blood Pressure [90-138/55-84 mm Hg] 106/ 78mm Hg (11/18/22 2:38 AM) 106/75mm Hg (11/17/22 3:45 PM) Temperature [96.8-100.4 DegF] 97.7 DegF (11/18/22 2:38 AM) 98.2 DegF (11/17/22 3:45 PM) Mode of Delivery (Oxygen) Room air (11/18/22 2:38 AM) Room air (11/17/22 3:45 PM) Blood pressure sites Arm, left (11/18/22 2:38 AM) Arm, right (11/17/22 3:45 PM) Temperature Route Oral (11/18/22 2:38 AM) Oral (11/17/22 3:45 PM) Dry Weight 93.5 kg (11/17/22 3:45 PM) Dry Weight Obtained Via Patient/family s tated (11/17/22 3:45 PM) Social History Social History Type Response Smoking Status 5-9 cigarettes (betw een / to 1/2 pack)/day in last 30 days entered on: 08/23/19 Sex XR Knee - right 1 or 2 Views * [facility] , CIS S: TRANSCRIBE Patrick Levy MD, V: VERIFY Event Display: Result: Authored Date: [id number] Knee 1 or 2 Views Right, 2 views Hx of Present Illness: co R iknee pain swelling after basically sitting on my foot while having seizure 2 weeks ago, similar episode 2 days ago, has seen ortho and is on pain meds; Reason: Trauma; with Pain; Clinical Question(s): Fracture COMPARISON: None. FINDINGS: There is no evidence of acute or healing fracture, dislocation or bone lesion. No arthritic changes. No osteochondral defects or intra-articular loose bodies. Moderate suprapatellar bursa effusion unchanged. IMPRESSION: No acute fracture or dislocation seen. Moderate right suprapatellar bursa effusion is either unchanged or slightly decreasing in size compared to the prior examination. WSN: [id number] Ordering Physician: David Smith MD Dictated By: Patrick Levy MD, V Dictated Date/Time: 11/17/22 3:00 pm Reviewed By: Patrick Levy MD, V Signed By: Patrick Levy MD, V Signed Date/Time: 11/17/22 3:00 pm Transcribed By: MERLENE Transcribed Date/Time: 11/17/22 2:59 pm Patient Care team information Care Team Personnel Name: Silvina Oliveira NP Position: Reference Physician Member Role: PCP Address: Address: [address] [place] [address]- Care Team Related Persons Name: ISATU BUCKNER Address: home [address] [place] [address] Name: TU ANNE Address: home [address] [place] [address]
--- OUTSIDE RECORDS SUMMARY | 2023-08-02 10:20 | XMS_ITS | Continuity of Care Document ---
Author Name Unknown Organization [facility] Address [address] [place] [address]- Care Team Providers Care Scouring Machine Operator Name Role Phone Tee BAUMANN, Silvina Primary Care Physician Encounter [facility] Date(s): 10/03/22 - 11/02/22 [facility] [address] [place] [address] [address] Attending Physician: AdmLamin alvarez Admitting Physician: AdmtrLamin Referring Physician: Admtr, Ar8 Allergies, Adverse Reactions, Alerts Substance Reaction Severity [...] 03/15/20 11:54:00 EDT, Route to Pharmacy Electronically, [facility] #63442, 178.5, cm, 03/15/20 11:34:00 EDT, Height, 87.7... [...] 07/03/22 21:41:00 EST, Route to Pharmacy Electronically, [facility]/pharmacy #2334, Partial fill upon patient request if the prescription is for a schedule II opioid drug... Start Date: 07/03/22 Stop Date: 10/01/22 Status: Ordered MiraLax oral powder for reconstitution = 17 Gm, By Mouth, 3 times a day, dissolve in water before taking, # 255 Gm, 0 Refills, Maintenance, 02/27/20 12:31:00 EDT, REC Powder, [facility] #24865, 17 Gm By Mouth 3 times a [...] tablet, 0 Refills,Maintenance, 02/27/20 12:31:00 EDT, Tablet, [facility] #64170, 182.88, cm, 02/27/20 10:19:00 EDT, Height, 87.1, [...] 02/27/20 12:30:00 EDT, Route to Pharmacy Electronically, [facility] #[id number], 182.88, cm, 02/27/20 10:19:00 EDT, Height, 87.1, [...] days entered on: 08/23/19 Sex Note * Event Display: Non BH Lab Results Authored Date: Patient Care team information Care Team Personnel Name: Silvina Oliveira NP Position: Reference Physician Member Role: PCP Address: Address: [address] [place] [address]- Care Team Related Persons Name: ISATU BUCKNER Address: [address] [place] [address] Name: TU ANNE Address: home [address] [place] [address]
--- OUTSIDE RECORDS SUMMARY | 2023-08-02 10:20 | XMS_ITS | Continuity of Care Document ---
Author Name Unknown Organization [facility] Address [address] [place] [address]- Care Team Providers Care Truck Supervisor Name Role Phone Tee MANAGER WOMEN, Silvina Primary Care Physician [place] [facility] [place] Date(s): 09/29/22 - 10/29/[address] [id number] Allergies, Adverse Reactions, Alerts Substance Reaction [...] 03/15/20 11:54:00 EDT, Route to Pharmacy Electronically, [facility] #[id number], 178.5, cm, 03/15/20 11:34:00 EDT, Height, 87.7... [...] EST, Route to Pharmacy Electronically, [facility]/pharmacy #[id number], Partial fill upon patient request if the prescription is for a schedule II opioid drug... Start Date: 07/03/22 Stop Date: 10/01/22 Status: Ordered MiraLax oral powder for reconstitution = 17 Gm, By Mouth, 3 times a day, dissolve in water before taking, # 255 Gm, 0 Refills, Maintenance, 02/27/20 12:31:00 EDT, REC Powder, [facility] #[id number], 17 Gm By Mouth 3 times a [...] tablet, 0 Refills,Maintenance, 02/27/20 12:31:00 EDT, Tablet, [facility] #[id number], 182.88, cm, 02/27/20 10:19:00 EDT, Height, 87.1, [...] 02/27/20 12:30:00 EDT, Route to Pharmacy Electronically, [facility] #[id number], 182.88, cm, 02/27/20 10:19:00 EDT, Height, 87.1, [...] Physician Member Role: PCP Address: Address: [address] [place] [id number]- Care Team Related Persons Name: ISATU BUCKNER Address: home [address] [place] [address] Name: TU ANNE Address: home [address] [place] [id number]
--- OUTSIDE RECORDS SUMMARY | 2023-08-02 10:20 | XMS_ITS | Continuity of Care Document ---
Author Name Unknown Organization [facility] Address [address] [place] [address]- Care Team Providers Care External Grinder Name Role Phone Tee DIRECTOR PRODUCT DEVELOPMENT, Silvina Primary Care Physician En[place] [facility] [place] Date(s): 02/22/20 - 03/23/20 [facility] [address] [place] [id number] [facility] Attending Physician: Lamin Dowling Admitting Physician: Lamin [...] 03/15/20 11:54:00 EDT, Route to Pharmacy Electronically, [facility] #[id number], 178.5, cm, 03/15/20 11:34:00 EDT, Height, 87.7... Start Date: 03/15/20 Status: Ordered [place] 300 mg, By Mouth, 2 times a [...] Refills, Maintenance, 02/27/20 12:31:00 EDT, REC Powder, [facility] #[id number], 17 Gm By Mouth 3 times a [...] tablet, 0 Refills,Maintenance, 02/27/20 12:31:00 EDT, Tablet, [facility] #[id number], 182.88, cm, 02/27/20 10:19:00 EDT, Height, 87.1, [...] 02/27/20 12:30:00 EDT, Route to Pharmacy Electronically, [facility] #[id number], 182.88, cm, 02/27/20 10:19:00 EDT, Height, 87.1, [...]
--- OUTSIDE RECORDS SUMMARY | 2023-08-02 10:20 | XMS_ITS | Continuity of Care Document ---
Author Name Unknown Organization [facility] Address [address] [place] [address]- Care Team Providers Care Chucker Name Role Phone Tee BAUMANN, Silvina Primary Care Physician [place] [facility] [place](s): 07/11/20 - 08/10/20 [facility] [address] [place], [place] [address] Attending Physician: Lamin Dowling Admitting Physician: Lamin Dowling Referring Physician: Lamin Dowling Allergies, Adverse Reactions, Alerts Substance Reaction Severity [...] 03/15/20 11:54:00 EDT, Route to Pharmacy Electronically, [facility] #[id number], 178.5, cm, 03/15/20 11:34:00 EDT, Height, 87.7... Start Date: 03/15/20 Status: Ordered ibuprofen 800 mg oral tablet 800 mg, 1, tablet, By Mouth, 3 times a day, # 270 tablet, Refills 0, Maintenance, 08/23/19 10:29:00EST Start Date: 08/23/19 Status: Ordered [place] 300 mg, By Mouth, 2 times a [...] Refills, Maintenance, 02/27/20 12:31:00 EDT, REC Powder, [facility] #[id number], 17 Gm By Mouth 3 times a [...] tablet, 0 Refills,Maintenance, 02/27/20 12:31:00 EDT, Tablet, [facility] #[id number], 182.88, cm, 02/27/20 10:19:00 EDT, Height, 87.1, [...] 02/27/20 12:30:00 EDT, Route to Pharmacy Electronically, [facility] #[id number], 182.88, cm, 02/27/20 10:19:00 EDT, Height, 87.1, [...]
--- OUTSIDE RECORDS SUMMARY | 2023-08-02 10:20 | XMS_ITS | Continuity of Care Document ---
Author Name Unknown Organization [facility] Address [address] [place] [address]- Care Team Providers Care Tab Card Press Operator Name Role Phone Tee BAUMANN, Silvina Primary Care Physician [phone] En[place] [facility] [place] Date(s): 03/17/23 - 04/26/23 [facility] [address] [place] [id number] Attending Physician: Joel Avelar MD Admitting Physician: Joel Avelar MD Referring Physician: Isidoro [...] Reference Physician Member Role: PCP Address: Address: [address] [place] [id number]- [place] Care Team Related Persons Name: ISATU BUCKNER Address: home [address] [place] [address] Name: TU ANNE Address: home [address] [place] [address]
--- NOTE | 2023-08-02 12:55 | MHC.RECOVRN ---
Met with pt in 374 after consult placed to Addiction Medicine for OUD. Pt had presented to the ED via EMS from home after a fall with left ankle swelling/ecchymosis. Parents concerned about pts mental status, hx seizures. Upon evaluation, pt admitted for seizure as well as fracture of medial malleolus. Pt sitting in bed, awake, alert, easily engages in conversation. Pt slightly difficult to follow in conversation, at times does not complete thought and trails off. Pt reports methadone, 120 mg AM and 100 mg PM daily, through [facility]. Pt reports receiving 2 weeks of take homes at a time. Pt reports she has been at this dose for about a year, has been in recovery for about a year. UDS negative. Pt reports medical issues/seizures have interfered with everything and reports I don't leave the house. Pt reports living with parents who are supportive. Discussed recovery resources, pt is confident in recovery at this time. Pt denies questions or concerns for t/w.
[2023-08-02 15:31] VITALS: BP 97/54; PULSE 65; RESP 20; TEMP 36.4; O2SAT 94
[2023-08-02] MEDS: Enoxaparin Sodium 40 MG/0.4 ML SYRINGE SUBCUT (15:38)
[2023-08-02] MEDS: oxyCODONE HCl Immed Release 5 MG TABLET 10 MG PO ×2 (15:38→22:09)
[2023-08-02 20:00] VITALS: BP 109/50; PULSE 89; RESP 18; TEMP 36.7; O2SAT 98
[2023-08-02] MEDS: methADONE HCl 20 MG/2 ML ORAL.CONC 100 MG PO (20:50)
[2023-08-02] MEDS: Ibuprofen 800 MG TABLET PO (20:50)
[2023-08-02] MEDS: traZODone HCL 50 MG TABLET PO (20:52)
[2023-08-02] MEDS: Divalproex Sodium 250 MG TABLET.DR PO (20:52)
--- NOTE | 2023-08-03 | EEG_ITS ---
This is a 16-channel EEG with an EKG lead. The patient is reported awake and asleep during the tracing. Background EEG rhythm is mostly in theta to delta range with some lead and muscle artifacts. No definite sharp wave spikes or paroxysmal tendency noted. Photic stimulation did not produce any significant abnormality. Hyperventilation was not performed. Cardiac lead did not reveal any significant abnormality. IMPRESSION: Generalized moderate slowing with no evidence of seizure disorder. MD TOSHA Kemp/SCOTT / [phone]
[2023-08-03 03:35] VITALS: BP 105/53; PULSE 62; RESP 18; TEMP 37; O2SAT 91
[2023-08-03 06:59] VITALS: BP 100/54; PULSE 65; RESP 16; TEMP 36.6; O2SAT 92
[2023-08-03] MEDS: Fluticasone/Vilanterol 100/25 BLST.W.DEV 1 PUFF INHALE (07:26)
[2023-08-03 07:28] VITALS: PULSE 62; RESP 16; O2SAT 95
[2023-08-03] MEDS: oxyCODONE HCl Immed Release 5 MG TABLET 10 MG PO ×2 (08:02→15:47)
[2023-08-03] MEDS: methADONE HCl 20 MG/2 ML ORAL.CONC 120 MG PO (08:02)
[2023-08-03] MEDS: levETIRAcetam 500 MG TABLET PO ×2 (08:02→20:44)
[2023-08-03] MEDS: Divalproex Sodium 500 MG TABLET.DR PO ×2 (08:02→20:44)
[2023-08-03] MEDS: Indomethacin 25 MG CAPSULE 50 MG PO ×2 (08:02→20:43)
--- NOTE | 2023-08-03 08:29 | PM.EVENT ---
Event Note Date of Service: 08/03/23 Event Note: reviewed images with Dr Vazquez, pt added on to OR for surgery tomorrow ORIF ankle-patient NPO after midnight Time Spent With Patient Time: Total time managing care of this patient today ____ minutes.
[2023-08-03 10:35] VITALS: PULSE 62
--- NOTE | 2023-08-03 10:35 | P.PNIM_ITS ---
Subjective Subjective Date of Service: 08/03/23 Physical Exam 2 Vital Signs: Vital Signs: Last Vital Signs Temp 98 F 08/03/23 06:59 Pulse 62 08/03/23 07:28 Resp 16 08/03/23 07:28 BP 100/54 L 08/03/23 06:59 Pulse Ox 92 08/03/23 06:59 O2 Del Method Room Air 08/03/23 06:59 BMI result Body Mass Index 31.4 Objective Data Active Medications Acetaminophen (Acetaminophen 325 Mg Tablet) 650 mg PO Q6H PRN PRN Reason: Pain, Mild (Pain Scale 1-3) Al Hydroxide/Mg Hydroxide (Magnesium Hydrox/Alum Hydrox 30 Ml Oral.Susp) 30 ml PO Q4H PRN PRN Reason: Heartburn/Nausea Albuterol Sulfate (Albuterol Sulfate 90 Mcg 8 Gm Inhaler) 2 puff INHALE Q4H PRN PRN Reason: Shortness Of Breath Or Wheezing Divalproex Sodium (Divalproex Sodium 250 Mg Tablet.) 250 mg PO BEDTIME [facility] Last Admin: 08/02/23 20:52 Dose: 250 mg Documented By: ANTONIO Divalproex Sodium (Divalproex Sodium 500 Mg Tablet.) 500 mg PO BID [facility] Last Admin: 08/03/23 08:02 Dose: 500 mg Documented By: MILTON Enoxaparin Sodium (Enoxaparin Sodium 40 Mg/0.4 Ml Syringe) 40 mg SUBCUT Q24H [facility] Last Admin: 08/02/23 15:38 Dose: 40 mg Documented By: ROSIE Fluticasone/Vilanterol (Fluticasone/Vilanterol 100/25 Blst.W.Dev) 1 puff INHALE RDAILY [facility] Last Admin: 08/03/23 07:26 Dose: 1 puff Documented By: HAYLEY Hydroxyzine HCl (Hydroxyzine Hcl 25 Mg Tablet) 25 mg PO BID PRN PRN Reason: Anxiety Cefazolin Sodium/Dextrose (Ancef) 2 gm in 50 mls @ 100 mls/hr IV PREOP ONE Stop: 08/04/23 08:29 Ibuprofen (Ibuprofen 800 Mg Tablet) 800 mg PO TID PRN PRN Reason: for pain Last Admin: 08/02/23 20:50 Dose: 800 mg Documented By: ANTONIO Indomethacin (Indomethacin 25 Mg Capsule) 50 mg PO BID [facility] Last Admin: 08/03/23 08:02 Dose: 50 mg Documented By: MILTON Levetiracetam (Levetiracetam 500 Mg Tablet) 500 mg PO BID [facility] Last Admin: 08/03/23 08:02 Dose: 500 mg Documented By: MILTON Magnesium Hydroxide (Milk Of Magnesia 30 Ml Oral.Susp) 30 ml PO DAILY PRN PRN Reason: Constipation Last Admin: 08/01/23 17:13 Dose: 30 ml Documented By: ROSIE Methadone HCl (Methadone Hcl 20 Mg/2 Ml Oral.Conc) 100 mg PO BEDTIME [facility] Last Admin: 08/02/23 20:50 Dose: 100 mg Documented By: ANTONIO Methadone HCl (Methadone Hcl 20 Mg/2 Ml Oral.Conc) 120 mg PO DAILY [facility] Last Admin: 08/03/23 08:02 Dose: 120 mg Documented By: MILTON Ondansetron HCl (Ondansetron Odt 4 Mg Tab.Rapdis) 4 mg TRANSLINGU Q8H PRN PRN Reason: Nausea and Vomiting Oxycodone HCl (Oxycodone Hcl Immed Release 5 Mg Tablet) 10 mg PO Q6H PRN PRN Reason: Pain, Severe (Pain Scale 7-10) Last Admin: 08/03/23 08:02 Dose: 10 mg Documented By: MILTON Sodium Chloride (0.9 % Sodium Chloride Flush 3 Ml Syringe) 3 ml IVFLUSH QSHIFT [facility] Last Admin: 08/03/23 08:03 Dose: Not Given Documented By: MILTON Non-Admin Reason: No Access Trazodone HCl (Trazodone Hcl 50 Mg Tablet) 50 mg PO BEDTIME [facility] Last Admin: 08/02/23 20:52 Dose: 50 mg Documented By: ANTONIO Labs 07/31/23 10:25 07/31/23 10:25 Assessment and Plan (1) Seizure: Status: Acute (2) Fracture of medial malleolus, left, closed: Status: Acute (3) Closed left fibular fracture: Status: Acute Plan 48/F with seizure d/o, opioid use desorder on methadone here with fall with distal L fibula fracture Seizure on valproic acid, topomax at home-Neuro recommended adding Keppra, EEG requested she believes topomax is making her dizzy and no longer wants to take it, no further seizure Left distal fibula and medial malleolus fractures--Splint, ortho initially recommended conservative management but now optinng for surgery planed for 08/04/[address] Vazquez. PT eval after surgery Oxycodone for pain h/o of opioid use desorder on high dose of methadone, addiction med consult DVT prophylaxis: lovenox full code need for inpatient: Fibula and medial Malleolus fractures that need surgery Quality Stroke Does the patient have a stroke diagnosis?: No VTE Prior VTE?: No VTE Risk Level:: Medical - moderate - high VTE Device Contraindication: Treatment Not Tolerated VTE Drug Contraindication: N/A - Med Ordered
--- NOTE | 2023-08-03 12:18 | P.PNOP_ITS ---
Subjective Subjective Date of Service: 08/03/23 <Burt Cruz PA-C - Last Filed: 08/03/23 12:21> 08/04/23 <Coy Vazquez MD - Last Filed: 08/04/23 11:12> Interval history: f/u left ankle fx resting in chair with splint intact <Burt Cruz PA-C - Last Filed: 08/03/23 12:21> Physical Exam Vital Signs: Vital Signs: Last Vital Signs Temp 98 F 08/03/23 06:59 Pulse 62 08/03/23 10:35 Resp 16 08/03/23 07:28 BP 100/54 L 08/03/23 06:59 Pulse Ox 92 08/03/23 06:59 O2 Del Method Room Air 08/03/23 06:59 BMI result Body Mass Index 31.4 <Burt Cruz PA-C - Last Filed: 08/03/23 12:21> Const: General: cooperative, healthy appearing and no acute distress <Lissy Cruz PA-C - Last Filed: 08/03/23 12:21> Resp: Effort & Inspection: normal respiratory effort and able to speak in complete sentences <Burt Cruz PA-C - Last Filed: 08/03/23 12:21> Cardio: Rate: regular rate <Burt Cruz PA-C - Last Filed: 08/03/23 12:21> Peripheral pulses: Peripheral pulses 2+ throughout <Burt Cruz PA-C - Last Filed: 08/03/23 12:21> GI: Palpation (GI): Soft to palpation <Burt Cruz PA-C - Last Filed: 08/03/23 12:21> Skin: General skin exam: no rashes or lesions noted <Burt Cruz PA-C - Last Filed: 08/03/23 12:21> Extrem: Other: Left ankle splint intact. Good color and temperature to toes <Burt Cruz PA-C - Last Filed: 08/03/23 12:21> Procedures Date of Service Date of Service: 08/03/23 <Burt Cruz PA-C - Last Filed: 08/03/23 12:21> 01/23/24 <Coy Vazquez MD - Last Filed: 08/04/23 11:12> Progress Note: A&P Assessment and plan (1) Fracture of medial malleolus, left, closed: Status: Acute <Burt Cruz PA-C - Last Filed: 08/03/23 12:21> Assessment and Plan: I discussed the case with Dr. Lester. I discussed the extent of the injury to the patient and her mother and options available. Given the extent of the fracture pattern and high risk of further displacement, it is recommended that we surgically fix this to help with stability and restoring anatomy. I explained to the patient the procedure in detail along with the risks benefits and alternatives. Risks including but not limited to infection, wound breakdown, stiffness, on going pain, nonunion or malunion, and possible complications with hardware. She does understand all this and would like to proceed with open reduction internal fixation of the Left ankle. She will be booked for 08/04/23 and will remain NPO after midnight. <Burt Cruz PA-C - Last Filed: 08/03/23 12:21> 48 yo F with a bimalleolar ankle fracture on the left. I discussed the extent of the injury to the patient and her mother and options available. I recommended toperative fixation. I explained to the patient the procedure in detail along with the risks benefits and alternatives. Risks including but not limited to infection, wound breakdown, stiffness, on going pain, nonunion or malunion, and possible complications with hardware. She does understand all this and would like to proceed with open reduction internal fixation of the Left ankle. She will be booked for 08/04/23 and will remain NPO after midnight. <Coy Vazquez MD - Last Filed: 08/04/23 11:12> Time Spent With Patient Time: Total time managing care of this patient today ____ minutes. <Burt Cruz PA-C - Last Filed: 08/03/23 12:21> Quality Stroke Does the patient have a stroke diagnosis?: No <Burt Cruz PA-C - Last Filed: 08/03/23 12:21> VTE Prior VTE?: No <Burt Cruz PA-C - Last Filed: 08/03/23 12:21> VTE Risk Level:: Medical - moderate - high <BONNY Morris Last Filed: 08/03/23 12:21> VTE Device Contraindication: Treatment Not Tolerated <BONNY Morris Last Filed: 08/03/23 12:21> VTE Drug Contraindication: N/A - Med Ordered <BONNY Morris Last Filed: 08/03/23 12:21>
--- NOTE | 2023-08-03 14:47 | MHC.CM.PN ---
EMR REVIEWED AND PER CM ROUNDS, PT WILL HAVE ANKLE SURGERY TOMORROW AND WILL NEED REHAB. PT IS AWARE THAT THE ONLY SNF'S TO ACCEPT PT'S ON METHADONE IS [facility] AND [facility]. PT REQUESTS A REFERRAL TO [facility] SHE HAS FAMILY THAT WORKS THERE. RELEASE FORM SIGNED AND FAXED TO [facility] AT [phone] TO PREPARE FOR GUEST DOSING. CM WILL CONTINUE TO FOLLOW FOR ANY CHANGE IN DC PLAN/NEEDS.
--- NOTE | 2023-08-03 15:35 | MHC.RECOVRN ---
Met with pt in 374 to follow up regarding decreasing methadone dose. Pt sitting in bed, awake, alert, easily engages in conversation, tearful at times. Pt voices strong desire to decrease dose, states I'm done with it. I don't want it anymore. Pt reports at home she does not take her evening dose 3-4 x weekly, pts mother corroborates this. Pt reports when she does take evening dose, it is typically 20-30% of total dose. Pt discusses negative impacts methadone has had on her life and is hopeful for a future without the medication. Pt informs t/w pain is not being adequately managed and would like adjustments to pain medication. Pt denies other questions or concerns. Discussed with Tania Tompkins APRN.
[2023-08-03] MEDS: Enoxaparin Sodium 40 MG/0.4 ML SYRINGE SUBCUT (15:43)
[2023-08-03 16:00] VITALS: BP 96/55; PULSE 62; RESP 17; TEMP 36.3; O2SAT 93
--- NOTE | 2023-08-03 17:03 | P.PNADD_ITS ---
Subjective Subjective Date of Service: 08/03/23 Reason For Visit: Seizure Interim History: Patient medically admitted with fracture of left leg--awaiting ortho surgery. Seen by table worker early in admission-verified methadone dosing to be 120mg in AM and 100mg in the evening. Patient reports being in recovery for one year. Very engaged with recovery supports. Today, attending requested we revisit patients methadone dose as she has been reportedly sleeping most of the day since her admission. Seen with table worker, patient shared that she takes full morning dose of 120mg, but only takes 20-30% of her evening dose 3-4 days per week. The other days, she does not take her evening dose at all. She shared that she was concerned about losing her take home bottles which is why she did not share this with her OTP. Patient tearful during interview, feeling frustrated by health issues and and having to continue pain medications when she is working towards eventual discontinuation of methadone. Next month is also the anniversary of her hsbands , so this has been on her mind some. Review of Systems Medical Review of Systems: unchanged Review of Systems: reporting significant discomfort in her left leg Mental Status Exam Mental Status Exam Patient Appearance: Appropriate Level of Consciousness: Awake and Appropriate Patient Behavior: Appropriate and Talkative Mood Description: Calm and Sad Diagnostics Vital Signs (24Hr): Vital Signs - 24 hr 08/02/23 20:00 08/03/23 03:35 08/03/23 06:59 Temperature 98.0 F 98.6 F 98 F Pulse Rate 89 62 65 Respiratory Rate 18 18 16 Blood Pressure 109/50 L 105/53 L 100/54 L Pulse Oximetry 98 91 L 92 Oxygen Delivery Method Room Air Room Air Room Air 08/03/23 07:28 08/03/23 10:35 08/03/23 16:00 Temperature 97.4 F Pulse Rate 62 62 62 Respiratory Rate 16 17 Blood Pressure 96/55 L Pulse Oximetry 93 Oxygen Delivery Method Room Air BMI result Body Mass Index 31.4 Labs 07/31/23 10:25 07/31/23 10:25 Imaging Radiology Impressions: ITS Impressions Cervical Spine CT 07/31/23 10:10 IMPRESSION: 1. No acute intracranial pathology. 2. No acute osseous abnormality within the cervical spine. Head CT 07/31/23 10:10 IMPRESSION: 1. No acute intracranial pathology. 2. No acute osseous abnormality within the cervical spine. Ankle X-Ray 07/31/23 10:15 IMPRESSION: Displaced oblique fracture of the distal fibula at the level of the syndesmosis. Possibly comminuted transverse fracture involving the medial malleolus. Marked lateral soft tissue swelling. Foot X-Ray 07/31/23 10:15 IMPRESSION: Displaced oblique fracture of the distal fibula at the level of the syndesmosis. Possibly comminuted transverse fracture involving the medial malleolus. Marked lateral soft tissue swelling. Medications Medications Current Medications Acetaminophen (Acetaminophen 325 Mg Tablet) 650 mg PO Q6H PRN PRN Reason: Pain, Mild (Pain Scale 1-3) Al Hydroxide/Mg Hydroxide (Magnesium Hydrox/Alum Hydrox 30 Ml Oral.Susp) 30 ml PO Q4H PRN PRN Reason: Heartburn/Nausea Albuterol Sulfate (Albuterol Sulfate 90 Mcg 8 Gm Inhaler) 2 puff INHALE Q4H PRN PRN Reason: Shortness Of Breath Or Wheezing Divalproex Sodium (Divalproex Sodium 250 Mg Tablet.) 250 mg PO BEDTIME [facility] Last Admin: 08/02/23 20:52 Dose: 250 mg Divalproex Sodium (Divalproex Sodium 500 Mg Tablet.) 500 mg PO BID [facility] Last Admin: 08/03/23 08:02 Dose: 500 mg Enoxaparin Sodium (Enoxaparin Sodium 40 Mg/0.4 Ml Syringe) 40 mg SUBCUT Q24H [facility] Last Admin: 08/03/23 15:43 Dose: 40 mg Fluticasone/Vilanterol (Fluticasone/Vilanterol 100/25 Blst.W.Dev) 1 puff INHALE RDAILY [facility] Last Admin: 08/03/23 07:26 Dose: 1 puff Hydroxyzine HCl (Hydroxyzine Hcl 25 Mg Tablet) 25 mg PO BID PRN PRN Reason: Anxiety Cefazolin Sodium/Dextrose (Ancef) 2 gm in 50 mls @ 100 mls/hr IV PREOP ONE Stop: 08/04/23 08:29 Ibuprofen (Ibuprofen 800 Mg Tablet) 800 mg PO TID PRN PRN Reason: for pain Last Admin: 08/02/23 20:50 Dose: 800 mg Indomethacin (Indomethacin 25 Mg Capsule) 50 mg PO BID [facility] Last Admin: 08/03/23 08:02 Dose: 50 mg Levetiracetam (Levetiracetam 500 Mg Tablet) 500 mg PO BID [facility] Last Admin: 08/03/23 08:02 Dose: 500 mg Magnesium Hydroxide (Milk Of Magnesia 30 Ml Oral.Susp) 30 ml PO DAILY PRN PRN Reason: Constipation Last Admin: 08/01/23 17:13 Dose: 30 ml Methadone HCl (Methadone Hcl 20 Mg/2 Ml Oral.Conc) 120 mg PO DAILY [facility] Last Admin: 08/03/23 08:02 Dose: 120 mg Methadone HCl (Methadone Hcl 20 Mg/2 Ml Oral.Conc) 30 mg PO BEDTIME [facility] Ondansetron HCl (Ondansetron Odt 4 Mg Tab.Rapdis) 4 mg TRANSLINGU Q8H PRN PRN Reason: Nausea and Vomiting Oxycodone HCl (Oxycodone Hcl Immed Release 5 Mg Tablet) 10 mg PO Q6H PRN PRN Reason: Pain, Severe (Pain Scale 7-10) Last Admin: 08/03/23 15:47 Dose: 10 mg Sodium Chloride (0.9 % Sodium Chloride Flush 3 Ml Syringe) 3 ml IVFLUSH QSHIFT [facility] Last Admin: 08/03/23 15:43 Dose: Not Given Trazodone HCl (Trazodone Hcl 50 Mg Tablet) 50 mg PO BEDTIME [facility] Last Admin: 08/02/23 20:52 Dose: 50 mg Allergies Allergies Allergy/AdvReac Type Severity Reaction Status Date / Time amoxicillin [AMOXICILLIN] Allergy Intermediate RASH Verified 07/31/23 09:33 Penicillins [PENICILLINS] Allergy Intermediate RASH Verified 07/31/23 09:33 Narcotics AdvReac Severe Itching Uncoded 06/16/23 08:33 Assessment & Plan Assessment & Plan (1) Opioid use disorder: Status: Acute Code(s): F11.90 - Opioid use, unspecified, uncomplicated Assessment and Plan: * decrease HS dose to 30mg, as patient reports taking very little of her evening dose 3-4 days per week. other days she does not take evening dose at all. * continue to manage pain as necessary--due to opiate tolerance will likely require higher doses of pain medications--justice following surgery. * will continue to follow Total time managing care of this patient today ___40_ minutes.
[2023-08-03] MEDS: Ondansetron ODT 4 MG TAB.RAPDIS TRANSLINGU (17:09)
--- NOTE | 2023-08-03 18:40 | MHC.RECOVSUP ---
? Reason for consult Recovery Support o Current location: 374-1 o Identified substance use concern: MAT - Support ? Intervention: o Harm reduction discussion ? Additional information:Met with patient and we talk about recovery, Harm reduction, and MAT... 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
[2023-08-03] MEDS: Ibuprofen 800 MG TABLET PO (19:02)
[2023-08-03] MEDS: hydrOXYzine HCL 25 MG TABLET PO (19:02)
[2023-08-03 20:00] VITALS: BP 100/57; PULSE 74; RESP 18; TEMP 36.3; O2SAT 93
[2023-08-03] MEDS: traZODone HCL 50 MG TABLET PO (20:44)
[2023-08-03] MEDS: Divalproex Sodium 250 MG TABLET.DR PO (20:44)
[2023-08-03] MEDS: methADONE HCl 20 MG/2 ML ORAL.CONC 30 MG PO (20:48)
[2023-08-04] VITALS (11 sets, daily range): BP systolic 95–108; BP diastolic 46–65; PULSE 54–74; RESP 11–20; TEMP 36–36.9; O2SAT 91–98
[2023-08-04] MEDS: 0.9 % Sodium Chloride Flush 3 ML SYRINGE IVFLUSH ×3 (00:53→17:27)
[2023-08-04] MEDS: Fluticasone/Vilanterol 100/25 BLST.W.DEV 1 PUFF INHALE (07:49)
[2023-08-04] MEDS: Divalproex Sodium 500 MG TABLET.DR PO ×2 (08:05→20:35)
[2023-08-04] MEDS: methADONE HCl 20 MG/2 ML ORAL.CONC 120 MG PO (08:05)
[2023-08-04] MEDS: levETIRAcetam 500 MG TABLET PO ×2 (08:05→20:35)
[2023-08-04] MEDS: oxyCODONE HCl Immed Release 5 MG TABLET 10 MG PO ×2 (08:10→17:24)
--- NOTE | 2023-08-04 12:48 | MHC.SHP ---
Pre-Procedural Eval Section A Date of Service: 08/04/23 The patient is an INPATIENT: Yes Changes since office visit: No Cold of Flu in the past 2 weeks, No New Medical Problems, No Changes in Medication and No Patient answered all questions The History & Physical has been completed within 30 days and I have reviewed it.: Yes Section B Chief Complaint: Seizure Allergies: Allergies Allergy/AdvReac Type Severity Reaction Status Date / Time amoxicillin [AMOXICILLIN] Allergy Intermediate RASH Verified 07/31/23 09:33 Penicillins [PENICILLINS] Allergy Intermediate RASH Verified 07/31/23 09:33 Narcotics AdvReac Severe Itching Uncoded 06/16/23 08:33 Plan I have reviewed the history and physical and performed a pertinent physical examination on my patient. No changes have occurred unless specified. Time Spent With Patient Time: Total time managing care of this patient today ____ minutes.
--- NOTE | 2023-08-04 12:56 | PC.NURSE ---
Addendum entered by Eve Bynum RN 08/04/23 13:12: patient placed on 2L NC, Dr. Patel, anesthesiologist at bedside. Original Note: patient O2 89-91%. patient states its usually 91*92%. patient repositioned, O2 nasal cannula at bedside.
--- NOTE | 2023-08-04 13:37 | MHC.CM.PN ---
EMR reviewed. [facility] is unable to offer a bed. [facility]. Patient is currently in OR. Will discuss when patient returns to floor. Patient will need guest dosing. CM will continue to follow.
--- NOTE | 2023-08-04 14:11 | HO.ANESPROP2 ---
HPI - Anesthesia Eval Consult details Narrative: 48F orif ankle fracture PMFSH Active Problems Active Problems: All Active Problems (Updated 08/03/23 @ 17:06 by Tania Tompkins CNP) Opioid use disorder (Acute) Seizure (Acute) Fracture of medial malleolus, left, closed (Acute) Closed left fibular fracture (Acute) Seizure disorder (Acute) Right clavicle fracture (Acute) History of fracture of clavicle (Acute) Asthma (Acute) Past Medical History Medical History Clavicle fracture Narcotic abuse Seizures Asthma COPD (chronic obstructive pulmonary disease) Family History Family history of problems with anesthesia: No Surgical History Surgical History H/O right knee surgery H/O left knee surgery History of Problems with Anesthesia: No Social History Social History Household Members: Family Housing: House Do you presently have visiting nurse or other home services: No Alcohol intake: unknown Patient Tobacco Use Status: Current someday Tobacco user Tobacco use type: Smokeless Tobacco Smoked in Last 30 Days: No Patient Interested in Nicotine Replacement: No Second Hand Smoke Exposure: No Use of substances other than those prescribed or required for medical reasons: No Substance Use Type: Crack/Cocaine and Opiates Currently Displaying Signs/Symptoms of Drug Intoxication Withdrawal: No Have you been hit, kicked, punched, or otherwise hurt by someone within the past year? If so, by whom?: No Do you feel safe in your current relationship?: Yes Are you made to feel afraid or neglected: No Are you DNR?: No Advance Directives: Yes Advance Directives Information Provided: No Advance Directives on File: No Advance Directives Date on File: 07/31/23 Do you have thoughts of harming others: None Do you have a plan to hurt others: No Plan Recently lost weight without trying: No Eating poorly because of decreased appetite: No Nutrition Risks: No Nutritional Risk Patient : No : No Poor oral hygiene: No service: No Meds Allergies Allergy/AdvReac Type Severity Reaction Status Date / Time amoxicillin [AMOXICILLIN] Allergy Intermediate RASH Verified 07/31/23 09:33 Penicillins [PENICILLINS] Allergy Intermediate RASH Verified 07/31/23 09:33 Narcotics AdvReac Severe Itching Uncoded 06/16/23 08:33 Active Medications: Current Medications Acetaminophen (Acetaminophen 325 Mg Tablet) 650 mg PO Q6H PRN PRN Reason: Pain, Mild (Pain Scale 1-3) Al Hydroxide/Mg Hydroxide (Magnesium Hydrox/Alum Hydrox 30 Ml Oral.Susp) 30 ml PO Q4H PRN PRN Reason: Heartburn/Nausea Albuterol Sulfate (Albuterol Sulfate 90 Mcg 8 Gm Inhaler) 2 puff INHALE Q4H PRN PRN Reason: Shortness Of Breath Or Wheezing Divalproex Sodium (Divalproex Sodium 250 Mg Tablet.) 250 mg PO BEDTIME [facility] Last Admin: 08/03/23 20:44 Dose: 250 mg Divalproex Sodium (Divalproex Sodium 500 Mg Tablet.) 500 mg PO BID [facility] Last Admin: 08/04/23 08:05 Dose: 500 mg Enoxaparin Sodium (Enoxaparin Sodium 40 Mg/0.4 Ml Syringe) 40 mg SUBCUT Q24H [facility] Last Admin: 08/03/23 15:43 Dose: 40 mg Fluticasone/Vilanterol (Fluticasone/Vilanterol 100/25 Blst.W.Dev) 1 puff INHALE RDAILY [facility] Last Admin: 08/04/23 07:49 Dose: 1 puff Hydroxyzine HCl (Hydroxyzine Hcl 25 Mg Tablet) 25 mg PO BID PRN PRN Reason: Anxiety Last Admin: 08/03/23 19:02 Dose: 25 mg Ibuprofen (Ibuprofen 800 Mg Tablet) 800 mg PO TID PRN PRN Reason: for pain Last Admin: 08/03/23 19:02 Dose: 800 mg Indomethacin (Indomethacin 25 Mg Capsule) 50 mg PO BID [facility] Last Admin: 08/04/23 08:05 Dose: Not Given Levetiracetam (Levetiracetam 500 Mg Tablet) 500 mg PO BID [facility] Last Admin: 08/04/23 08:05 Dose: 500 mg Magnesium Hydroxide (Milk Of Magnesia 30 Ml Oral.Susp) 30 ml PO DAILY PRN PRN Reason: Constipation Last Admin: 08/01/23 17:13 Dose: 30 ml Methadone HCl (Methadone Hcl 20 Mg/2 Ml Oral.Conc) 120 mg PO DAILY [facility] Last Admin: 08/04/23 08:05 Dose: 120 mg Methadone HCl (Methadone Hcl 20 Mg/2 Ml Oral.Conc) 30 mg PO BEDTIME [facility] Last Admin: 08/03/23 20:48 Dose: 30 mg Ondansetron HCl (Ondansetron Odt 4 Mg Tab.Rapdis) 4 mg TRANSLINGU Q8H PRN PRN Reason: Nausea and Vomiting Last Admin: 08/03/23 17:09 Dose: 4 mg Oxycodone HCl (Oxycodone Hcl Immed Release 5 Mg Tablet) 10 mg PO Q6H PRN PRN Reason: Pain, Severe (Pain Scale 7-10) Last Admin: 08/04/23 08:10 Dose: 10 mg Sodium Chloride (0.9 % Sodium Chloride Flush 3 Ml Syringe) 3 ml IVFLUSH QSHIFT [facility] Last Admin: 08/04/23 08:14 Dose: 3 ml Trazodone HCl (Trazodone Hcl 50 Mg Tablet) 50 mg PO BEDTIME [facility] Last Admin: 08/03/23 20:44 Dose: 50 mg Home Medications Medication Instructions Recorded Confirmed Last Taken Type albuterol sulfate 90 mcg/actuation 2 puff inhalation Q4-6H PRN 07/31/23 07/31/23 Unknown History aerosol inhaler Shortness Of Breath Or Wheezing diclofenac sodium 1 % topical gel 1 g topical DAILY PRN Pain 07/31/23 07/31/23 Unknown History divalproex 250 mg tablet,delayed 250 mg PO BEDTIME 07/31/23 07/31/23 07/30/23 History release divalproex 500 mg tablet,delayed 500 mg PO BID 07/31/23 07/31/23 07/30/23 History release hydroxyzine HCl 25 mg tablet 25 mg PO BID PRN Anxiety 07/31/23 07/31/23 Unknown History indomethacin 50 mg capsule 50 mg PO BID 07/31/23 07/31/23 07/31/23 History methadone 10 mg/mL oral 100 mg PO BEDTIME 07/31/23 07/31/23 07/31/23 History concentrate (Methadone Intensol) methadone 10 mg/mL oral 120 mg PO DAILY 07/31/23 07/31/23 07/31/23 History concentrate (Methadone Intensol) mometasone-formoterol HFA 100 2 puff inhalation BID 07/31/23 07/31/23 Unknown History mcg-5 mcg/actuation aerosol inhaler (Dulera) ondansetron 4 mg disintegrating 4 mg PO DAILY PRN Nausea 07/31/23 07/31/23 Unknown History tablet oxycodone 5 mg tablet 5 mg PO QID PRN Pain 07/31/23 07/31/23 Unknown History topiramate 25 mg tablet 25 mg PO BID 07/31/23 07/31/23 Unknown History trazodone 50 mg tablet 50 - 100 mg PO BEDTIME 07/31/23 07/31/23 Unknown History Exam Height,Weight and Vital Signs: Height 6 ft Weight 231 lb 7.766 oz Last Vital Signs Temp 97.9 F 08/04/23 12:44 Pulse 57 08/04/23 12:44 Resp 16 08/04/23 12:44 BP 97/55 L 08/04/23 12:44 Pulse Ox 91 L 08/04/23 12:44 O2 Del Method Room Air 08/04/23 12:44 Pertinent Lab Results Pertinent Lab Results: Laboratory Tests 07/31/23 07/31/23 08/01/23 09:29 10:25 12:52 WBC 3.7 L RBC 4.31 Hgb 11.8 L Hct 35.7 L MCV 82.8 MCH 27.4 MCHC 33.1 RDW 13.3 Plt Count 156 L MPV 9.9 Immature Gran % (Auto) 0.3 Neut % (Auto) 58.7 Lymph % (Auto) 28.5 [place] % (Auto) 11.1 H Eos % (Auto) 1.1 Baso % (Auto) 0.3 Lymph # (Auto) 1.[address] # (Auto) 0.4 Eos # (Auto) 0.0 Baso # (Auto) 0.0 Abs Immat Gran (auto) 0.01 Absolute Neuts (auto) 2.2 Absolute Nucleated RBC 0.000 Nucleated RBC % (auto) 0.0 PT 11.3 INR 0.9 Sodium 140 Potassium 4.7 Chloride 104 Carbon Dioxide 29 Anion Gap 12 BUN 23 H Creatinine 1.27 Estim Creat Clear Calc 71.7 Estimated GFR 45 POC Glucose 111 Random Glucose 97 Calcium 9.5 Magnesium 2.1 Total Bilirubin 0.3 AST 12 ALT 9 Alkaline Phosphatase 61 Troponin I High Sens < 2.7 Total Protein 6.3 L Albumin 3.7 Beta HCG, Quant < 2 Urine Color Yellow Urine Appearance Clear Urine pH 6.5 Ur Specific Ignacio 1.020 Urine Protein Negative Urine Glucose (UA) Negative Urine Ketones Trace Urine Blood Negative Urine Nitrite Negative Ur Leukocyte Esterase Negative Urine Opiates Screen Not Detected Urine Fentanyl Screen Not Detected Ur Barbiturates Screen Not Detected Valproic Acid 61.9 Ur Phencyclidine Scrn Not Detected Ur Amphetamines Screen Not Detected U Benzodiazepines Scrn Not Detected Urine Cocaine Screen Not Detected U Marijuana (THC) Screen Not Detected Ethyl Alcohol < 10 COVID-19 (ZEINA) Negative COVID-19 Clin Com See Note Influenza Type A (JEROMY) Negative Influenza Type B (JEROMY) Negative Influenza A & B Note See Note Airway Mallampati Class: III TM Dist: >3cm Denture: Upper and Lower Loose/Missing/Broken Teeth: Yes Assessment and Plan Assessment Anesthesia Assessment: Anesthesia Plan Discussed Final Anesthetic Review Family History of Problems with Anesthesia: No History of Problems with Anesthesia: No NPO: Yes ASA Class: III Final Preanesthetic Review: No Changes in Pt Med Stat, Meds/Allgs Chart Reviewed, Consent Obtained/Reviewed and Anes Risks/Benef Reviewed Patient Risk: Intermediate Procedure Risk: Low Anesthetic Plan Anesthetic Plan: MAC:, Spinal and Regional Block Disposition: Standard PACU
--- NOTE | 2023-08-04 14:35 | HO.PM.IMPN ---
Subjective Subjective Date of Service: 08/04/23 Interval History: Left distal fibula and medial malleolus fractures- Review of Systems denies any new c/o waiting for foot surgery Physical Exam Vital Signs: Vital Signs: Last Vital Signs Temp 97.9 F 08/04/23 12:44 Pulse 57 08/04/23 12:44 Resp 16 08/04/23 12:44 BP 97/55 L 08/04/23 12:44 Pulse Ox 91 L 08/04/23 12:44 O2 Del Method Room Air 08/04/23 12:44 BMI result Body Mass Index 31.4 General: AO X 3, no acute distress Resp: CTA bilateral CVS: S1,S2,RRR GI: +BS, NT, no distention Skin: No rash MSK left ankle spint Neuro: motor grossly intact Psych: appropriate affec Objective Data Active Medications Acetaminophen (Acetaminophen 325 Mg Tablet) 650 mg PO Q6H PRN PRN Reason: Pain, Mild (Pain Scale 1-3) Al Hydroxide/Mg Hydroxide (Magnesium Hydrox/Alum Hydrox 30 Ml Oral.Susp) 30 ml PO Q4H PRN PRN Reason: Heartburn/Nausea Albuterol Sulfate (Albuterol Sulfate 90 Mcg 8 Gm Inhaler) 2 puff INHALE Q4H PRN PRN Reason: Shortness Of Breath Or Wheezing Divalproex Sodium (Divalproex Sodium 250 Mg Tablet.) 250 mg PO BEDTIME [facility] Last Admin: 08/03/23 20:44 Dose: 250 mg Documented By: ANTONIETTA Divalproex Sodium (Divalproex Sodium 500 Mg Tablet.) 500 mg PO BID [facility] Last Admin: 08/04/23 08:05 Dose: 500 mg Documented By: MILTON Enoxaparin Sodium (Enoxaparin Sodium 40 Mg/0.4 Ml Syringe) 40 mg SUBCUT Q24H [facility] Last Admin: 08/03/23 15:43 Dose: 40 mg Documented By: ANTONIETTA Fluticasone/Vilanterol (Fluticasone/Vilanterol 100/25 Blst.W.Dev) 1 puff INHALE RDAILY [facility] Last Admin: 08/04/23 07:49 Dose: 1 puff Documented By: NORA Hydroxyzine HCl (Hydroxyzine Hcl 25 Mg Tablet) 25 mg PO BID PRN PRN Reason: Anxiety Last Admin: 08/03/23 19:02 Dose: 25 mg Documented By: ANTONIETTA Ibuprofen (Ibuprofen 800 Mg Tablet) 800 mg PO TID PRN PRN Reason: for pain Last Admin: 08/03/23 19:02 Dose: 800 mg Documented By: ANTONIETTA Indomethacin (Indomethacin 25 Mg Capsule) 50 mg PO BID [facility] Last Admin: 08/04/23 08:05 Dose: Not Given Documented By: MILTON Non-Admin Reason: preop Levetiracetam (Levetiracetam 500 Mg Tablet) 500 mg PO BID [facility] Last Admin: 08/04/23 08:05 Dose: 500 mg Documented By: MILTON Magnesium Hydroxide (Milk Of Magnesia 30 Ml Oral.Susp) 30 ml PO DAILY PRN PRN Reason: Constipation Last Admin: 08/01/23 17:13 Dose: 30 ml Documented By: ROSIE Methadone HCl (Methadone Hcl 20 Mg/2 Ml Oral.Conc) 120 mg PO DAILY [facility] Last Admin: 08/04/23 08:05 Dose: 120 mg Documented By: MILTON Methadone HCl (Methadone Hcl 20 Mg/2 Ml Oral.Conc) 30 mg PO BEDTIME [facility] Last Admin: 08/03/23 20:48 Dose: 30 mg Documented By: ANTONIETTA Ondansetron HCl (Ondansetron Odt 4 Mg Tab.Rapdis) 4 mg TRANSLINGU Q8H PRN PRN Reason: Nausea and Vomiting Last Admin: 08/03/23 17:09 Dose: 4 mg Documented By: ANTONIETTA Ondansetron HCl (Ondansetron Hcl 4 Mg/2 Ml Vial) 4 mg IVPUSH ONCE PRN PRN Reason: Nausea and Vomiting Oxycodone HCl (Oxycodone Hcl Immed Release 5 Mg Tablet) 10 mg PO Q6H PRN PRN Reason: Pain, Severe (Pain Scale 7-10) Last Admin: 08/04/23 08:10 Dose: 10 mg Documented By: MILTON Oxycodone HCl (Oxycodone Hcl Immed Release 5 Mg Tablet) 5 mg PO ONCE PRN PRN Reason: Pain, Severe (Pain Scale 7-10) Sodium Chloride (0.9 % Sodium Chloride Flush 3 Ml Syringe) [address] [facility] Last Admin: 08/04/23 08:14 Dose: 3 ml Documented By: MILTON Trazodone HCl (Trazodone Hcl 50 Mg Tablet) 50 mg PO BEDTIME [facility] Last Admin: 08/03/23 20:44 Dose: 50 mg Documented By: ANTONIETTA Labs 07/31/23 10:25 07/31/23 10:25 Assessment and Plan (1) Seizure: Status: Acute (2) Fracture of medial malleolus, left, closed: Status: Acute (3) Closed left fibular fracture: Status: Acute Plan 48/F with seizure d/o, opioid use desorder on methadone here with fall with distal L fibula fracture Seizure on valproic acid, topomax at home-Neuro recommendedand started Keppra, EEG -Generalized moderate slowing with no evidence of seizure disorder. she believes topomax is making her dizzy and no longer wants to take it, no further seizure Left distal fibula and medial malleolus fractures--Splint, ortho initially recommended conservative management but now optinng for surgery planed for 08/04/[address] Vazquez. PT eval after surgery Oxycodone for pain h/o of opioid use desorder on high dose of methadone, addiction med consult DVT prophylaxis: lovenox full code need for inpatient: Fibula and medial Malleolus fractures that need surgery. Quality Stroke Does the patient have a stroke diagnosis?: No VTE Prior VTE?: No VTE Risk Level:: Medical - moderate - high VTE Device Contraindication: Treatment Not Tolerated VTE Drug Contraindication: N/A - Med Ordered
--- NOTE | 2023-08-04 14:58 | PM.OP ---
Brief Operative Note Date of Service: 08/04/23 Pre-op diagnosis: left bimalleolar ankle fracture Post-op diagnosis: same Procedure: ORIF lateral mal ORIF medial mal Implants: Avelino Surgeon: Coy Vazquez MD Anesthesia: regional and spinal Was an Assistant Professor used for this Procedure?: Yes Assistant Professor: Burt Cruz Estimated blood loss (mL): 25 Tourniquet time (min): 40 IV fluids (mL): 800 Pathology: none sent Condition: stable Disposition: PACU
[2023-08-04] MEDS: Indomethacin 25 MG CAPSULE 50 MG PO ×2 (15:26→20:35)
--- NOTE | 2023-08-04 15:53 | MHC.RECOVRN ---
Attempted to meet with pt, pt in surgery. Discussed with pts RN who informed t/w pt did not c/o withdrawal symptoms and decreased evening dose of methadone had positive effect. Tania Tompkins APRN, aware.
--- NOTE | 2023-08-04 17:13 | PC.NURSE ---
Patient s/p Left ORIF today,scheduled for Lovenox,LANIE Devine notified,Lovenox held for [facility]
[2023-08-04] MEDS: Ondansetron ODT 4 MG TAB.RAPDIS TRANSLINGU (17:19)
--- NOTE | 2023-08-04 17:21 | PC.NURSE ---
patient able to move legs bilateral,denies numbness
[2023-08-04] MEDS: Divalproex Sodium 250 MG TABLET.DR PO (20:35)
[2023-08-04] MEDS: traZODone HCL 50 MG TABLET PO (20:35)
[2023-08-04] MEDS: methADONE HCl 20 MG/2 ML ORAL.CONC 30 MG PO (20:36)
[2023-08-04] MEDS: Ibuprofen 800 MG TABLET PO (21:46)
[2023-08-05] VITALS (10 sets, daily range): BP systolic 94–132; BP diastolic 52–75; PULSE 64–71; RESP 16–18; TEMP 36.1–37; O2SAT 91–95
[2023-08-05] MEDS: 0.9 % Sodium Chloride Flush 3 ML SYRINGE IVFLUSH ×3 (00:12→15:47)
[2023-08-05] MEDS: oxyCODONE HCl Immed Release 5 MG TABLET 10 MG PO ×4 (01:35→17:03)
[2023-08-05] MEDS: Ondansetron ODT 4 MG TAB.RAPDIS TRANSLINGU (01:36)
[2023-08-05] MEDS: HYDROmorphone HCl 1 MG/ML SYRINGE 0.8 MG IVPUSH (03:10)
[2023-08-05] MEDS: HYDROmorphone HCl 1 MG/ML SYRINGE IVPUSH (04:33)
--- NOTE | 2023-08-05 04:55 | PC.NURSE ---
PATIENT POD #1 ORIF LEFT ANKLE, A/O X 3, COLOR WNL, SKIN W/D, LUNG HUNTER CLEAR, VSS. SPLIT CAST AND AYANA WRAP C-D-I, ELEVATED TO 3 PILLOWS,+CMS. TOES ARE SWOLLEN BUT WARM, COLOR GOOD, ABLE TO WIGGLE FREELY, SPACE NOTED AT AYANA EDGES. PAIN MANAGEMENT A CHALLENGE, 10+ PAIN AT 0135, MEDICATED WITH OXYCODONE 10 MG PO WITH NO RELIEF. REPOSITIONED, OFFERED TV, BEVERAGE, DIM LIGHTS.... DESPITE ALL, PAIN REMAINED INTOLERABLE, THEREFORE, HOSPITALIST ALERTED AND MEDICATED WITH NEW ORDER DILAUDID 0.8MG IVP AT 0315, AGAIN WITH NO RELIEF. PT FRUSTRATED, MOANING, RESTLESS, AND NEAR TEARS. HOSPITALIST AGAIN UPDATED, AGAIN INFORMED OF PAIN, METHADONE DOSES, HISTORY, AND LEVEL OF PAIN STIL 10+. ORDER RECEIVED FOR 1MG IVP DILAUDID AND ADMINISTERED AT 0435, VSS, REPOSITIONED, ICE PACK REAPPLIED, UP ON 3 PILLOWS. NOTED PATIENT FINALLY ABLE TO RELAX AND FALL ASLEEP. NO S/SX SEIZURE ACTIVITY (ADD IN; ALSO MEDICATED WITH SL ZOFRAN FOR NAUSEA AT 0135 WITH GOOD EFFECT). NO FURTHER NAUSEA. WILL CONTINUE TO MONITOR PATIENT CLOSELY. HFR PROTOCOL IN USE, BED ALARM ON, CALL NATARAJAN WITHIN REACH.
[2023-08-05] MEDS: Divalproex Sodium 500 MG TABLET.DR PO ×2 (07:31→19:40)
[2023-08-05] MEDS: Indomethacin 25 MG CAPSULE 50 MG PO ×2 (07:31→19:46)
[2023-08-05] MEDS: methADONE HCl 20 MG/2 ML ORAL.CONC 120 MG PO (07:31)
[2023-08-05] MEDS: Acetaminophen 325 MG TABLET 650 MG PO ×3 (07:31→19:28)
[2023-08-05] MEDS: levETIRAcetam 500 MG TABLET PO ×2 (07:31→19:40)
--- NOTE | 2023-08-05 07:36 | PM.PNORT ---
Subjective Subjective Date of Service: 08/05/23 Interval history: POD1 s/p left ankle ORIF Patient is resting in bed No overnight events Pain is unmanaged No additional complaints Physical Exam Vital Signs: Vital Signs: Last Vital Signs Temp 97 F 08/05/23 06:53 Pulse 64 08/05/23 06:53 Resp 17 08/05/23 06:53 BP 132/75 08/05/23 06:53 Pulse Ox 95 08/05/23 06:53 O2 Del Method Room Air 08/05/23 06:53 O2 Flow Rate 2 08/04/23 15:28 BMI result Body Mass Index 31.4 Const: General: cooperative, healthy appearing and no acute distress Resp: Effort & Inspection: normal respiratory effort and able to speak in complete sentences Cardio: Rate: regular rate Peripheral pulses: Peripheral pulses 2+ throughout GI: Palpation (GI): Soft to palpation Skin: Lesions: no lesions Rashes: no rashes Extrem: Other: left ankle splint is c/d/i. Able to move all digits. Capillary refill is brisk. Procedures Date of Service Date of Service: 08/05/23 Progress Note: A&P Assessment and plan (1) Opioid use disorder: Status: Acute (2) Seizure: Status: Acute (3) Fracture of medial malleolus, left, closed: Status: Acute (4) Closed left fibular fracture: Status: Acute (5) Seizure disorder: Status: Acute Plan Continue pain mgmnt Resume dvt ppx 24 hours post op begin PT for LLE NWB Dispo planning-Pending PT eval, pain mgmnt Time Spent With Patient Time: Total time managing care of this patient today ____ minutes. Quality Stroke Does the patient have a stroke diagnosis?: No VTE Prior VTE?: No VTE Risk Level:: Medical - moderate - high VTE Device Contraindication: Treatment Not Tolerated VTE Drug Contraindication: N/A - Med Ordered
[2023-08-05] MEDS: oxyCODONE HCl ER 10 MG TAB.ER.12H PO ×2 (07:57→19:40)
[2023-08-05] MEDS: Ibuprofen 800 MG TABLET PO (07:57)
[2023-08-05] MEDS: Fluticasone/Vilanterol 100/25 BLST.W.DEV 1 PUFF INHALE (08:22)
--- NOTE | 2023-08-05 09:17 | HO.POSTANES ---
Post Anesthesia Evaluation Post Anesthesia Evaluation Date of Service: 08/05/23 Vital Signs: Vital Signs Temp Pulse Resp BP Pulse Ox O2 Del Method 08/05/23 08:26 67 16 08/05/23 06:53 97 F 64 17 132/75 95 Room Air 08/05/23 05:03 18 08/05/23 04:33 18 08/05/23 03:35 98.1 F 65 18 108/59 L 92 Room Air 08/05/23 00:00 98.6 F 65 16 101/52 L 93 Room Air Anesthesia: Spinal Mental Status: Awake Pain Control: Satisfactory (difficulty controlling pain 10/10) Nausea/Vomiting: None Hydration: Adequate Anesthesia-Related Issues: No Anes. Related Issues
[2023-08-05] MEDS: HYDROmorphone HCl 0.5 MG/0.5 ML SYRINGE 1 MG IVPUSH ×2 (09:37→21:00)
[2023-08-05] MEDS: Promethazine HCL 25 MG TABLET PO (09:37)
--- NOTE | 2023-08-05 14:41 | MHC.CM.PN ---
Met with patient and her Mother. Initially they stated that the patient can not go to any facility in [place]. They requested [facility] or [facility]. [facility] does not have a bed available. They are following. [facility] has been asked if they could accept the patient with Methadone take home doses. The response is pending. They were contacted via [employer] as well as a phone call. A message was left for Cesia the liason. DP STR via BLS.
--- NOTE | 2023-08-05 15:25 | MHC.RECOVRN ---
Met with pt to follow up and provide support. Pt in chair, asleep, mother at bedside. Mother reports pts pain is more manageable and methadone dose has been adequate. Mother reports pt did not sleep all night, pt finally able to rest. Mother denies questions or concerns at this time.
[2023-08-05] MEDS: Enoxaparin Sodium 40 MG/0.4 ML SYRINGE SUBCUT (15:47)
--- NOTE | 2023-08-05 15:55 | P.PNIM_ITS ---
Subjective Subjective Date of Service: 08/05/23 Interval History: fracture Review of Systems s/p foot surgery has foot pain no chest pain or sob Physical Exam 2 Vital Signs: Vital Signs: Last Vital Signs Temp 97.6 F 08/05/23 15:16 Pulse 67 08/05/23 15:16 Resp 18 08/05/23 15:16 BP 94/56 L 08/05/23 15:16 Pulse Ox 92 08/05/23 15:16 O2 Del Method Room Air 08/05/23 15:16 O2 Flow Rate 2 08/04/23 15:28 BMI result Body Mass Index 31.4 General: AO X 3, no acute distress Resp: CTA bilateral CVS: [id number]. GI: +BS, NT, no distention Skin: No rash MSK left ankle spint Neuro: motor grossly intact Psych: appropriate affec Objective Data Active Medications Acetaminophen (Acetaminophen 325 Mg Tablet) 650 mg PO Q6H PRN PRN Reason: Pain, Mild (Pain Scale 1-3) Last Admin: 08/05/23 13:19 Dose: 650 mg Documented By: LEONELA Al Hydroxide/Mg Hydroxide (Magnesium Hydrox/Alum Hydrox 30 Ml Oral.Susp) 30 ml PO Q4H PRN PRN Reason: Heartburn/Nausea Albuterol Sulfate (Albuterol Sulfate 90 Mcg 8 Gm Inhaler) 2 puff INHALE Q4H PRN PRN Reason: Shortness Of Breath Or Wheezing Divalproex Sodium (Divalproex Sodium 250 Mg Tablet.) 250 mg PO BEDTIME [facility] Last Admin: 08/04/23 20:35 Dose: 250 mg Documented By: ANTONIETTA Divalproex Sodium (Divalproex Sodium 500 Mg Tablet.) 500 mg PO BID [facility] Last Admin: 08/05/23 07:31 Dose: 500 mg Documented By: MILTON Enoxaparin Sodium (Enoxaparin Sodium 40 Mg/0.4 Ml Syringe) 40 mg SUBCUT Q24H [facility] Last Admin: 08/05/23 15:47 Dose: 40 mg Documented By: ANTONIETTA Fluticasone/Vilanterol (Fluticasone/Vilanterol 100/25 Blst.W.Dev) 1 puff INHALE RDAILY [facility] Last Admin: 08/05/23 08:22 Dose: 1 puff Documented By: NORA Hydromorphone HCl (Hydromorphone Hcl 0.5 Mg/0.5 Ml Syringe) 1 mg IVPUSH Q4H PRN; Protocol PRN Reason: Pain, Severe (Pain Scale 7-10) Last Admin: 08/05/23 09:37 Dose: 1 mg Documented By: MILTON Hydroxyzine HCl (Hydroxyzine Hcl 25 Mg Tablet) 25 mg PO BID PRN PRN Reason: Anxiety Last Admin: 08/03/23 19:02 Dose: 25 mg Documented By: ANTONIETTA Ibuprofen (Ibuprofen 800 Mg Tablet) 800 mg PO TID PRN PRN Reason: for pain Last Admin: 08/05/23 07:57 Dose: 800 mg Documented By: LEONELA Indomethacin (Indomethacin 25 Mg Capsule) 50 mg PO BID [facility] Last Admin: 08/05/23 07:31 Dose: 50 mg Documented By: MILTON Levetiracetam (Levetiracetam 500 Mg Tablet) 500 mg PO BID [facility] Last Admin: 08/05/23 07:31 Dose: 500 mg Documented By: MILTON Magnesium Hydroxide (Milk Of Magnesia 30 Ml Oral.Susp) 30 ml PO DAILY PRN PRN Reason: Constipation Last Admin: 08/01/23 17:13 Dose: 30 ml Documented By: ROSIE Methadone HCl (Methadone Hcl 20 Mg/2 Ml Oral.Conc) 120 mg PO DAILY [facility] Last Admin: 08/05/23 07:31 Dose: 120 mg Documented By: MILTON Methadone HCl (Methadone Hcl 20 Mg/2 Ml Oral.Conc) 30 mg PO BEDTIME [facility] Last Admin: 08/04/23 20:36 Dose: 30 mg Documented By: ANTONIETTA Ondansetron HCl (Ondansetron Odt 4 Mg Tab.Rapdis) 4 mg TRANSLINGU Q8H PRN PRN Reason: Nausea and Vomiting Last Admin: 08/05/23 01:36 Dose: 4 mg Documented By: KENTRELL Oxycodone HCl (Oxycodone Hcl Er 10 Mg Tab.Er.12h) 10 mg PO BID [facility] Last Admin: 08/05/23 07:57 Dose: 10 mg Documented By: LEONELA Oxycodone HCl (Oxycodone Hcl Immed Release 5 Mg Tablet) 10 mg PO Q4H PRN PRN Reason: Pain, Severe (Pain Scale 7-10) Last Admin: 08/05/23 13:19 Dose: 10 mg Documented By: LEONELA Promethazine HCl (Promethazine Hcl 25 Mg Tablet) 25 mg PO Q6H PRN PRN Reason: Nausea Last Admin: 08/05/23 09:37 Dose: 25 mg Documented By: MILTON Sodium Chloride (0.9 % Sodium Chloride Flush 3 Ml Syringe) 3 ml IVFLUSH QSHIFT [facility] Last Admin: 08/05/23 15:47 Dose: 3 ml Documented By: ANTONIETTA Trazodone HCl (Trazodone Hcl 50 Mg Tablet) 50 mg PO BEDTIME [facility] Last Admin: 08/04/23 20:35 Dose: 50 mg Documented By: ANTONIETTA Labs 07/31/23 10:25 07/31/23 10:25 Assessment and Plan (1) Seizure: Status: Acute (2) Fracture of medial malleolus, left, closed: Status: Acute (3) Closed left fibular fracture: Status: Acute Plan 48/F with seizure d/o, opioid use desorder on methadone here with fall with distal L fibula fracture Seizure on valproic acid, topomax at home-Neuro recommendedand started Keppra, EEG -Generalized moderate slowing with no evidence of seizure disorder. she believes topomax is making her dizzy and no longer wants to take it, no further seizure Left distal fibula and medial malleolus fractures--Splint, ortho -s/p foot surgery 08/04 Oxycodone,diluadid f for pain h/o of opioid use desorder on high dose of methadone, addiction med consult DVT prophylaxis: lovenox full code need for inpatient: Fibula and medial Malleolus fractures s/p post surgery day 1: need better pain control,so far requiring IV pain medications.Pt/ot. Quality Stroke Does the patient have a stroke diagnosis?: No VTE Prior VTE?: No VTE Risk Level:: Medical - moderate - high VTE Device Contraindication: Treatment Not Tolerated VTE Drug Contraindication: N/A - Med Ordered
[2023-08-05] MEDS: Divalproex Sodium 250 MG TABLET.DR PO (19:40)
[2023-08-05] MEDS: traZODone HCL 50 MG TABLET PO (19:40)
[2023-08-05] MEDS: methADONE HCl 20 MG/2 ML ORAL.CONC 30 MG PO (19:41)
[2023-08-06 06:25] VITALS: BP 119/59; PULSE 65; RESP 18; TEMP 36.7; O2SAT 94
[2023-08-06] MEDS: HYDROmorphone HCl 0.5 MG/0.5 ML SYRINGE 1 MG IVPUSH ×5 (06:42→20:18)
[2023-08-06] MEDS: Indomethacin 25 MG CAPSULE 50 MG PO ×2 (08:01→20:14)
[2023-08-06] MEDS: Divalproex Sodium 500 MG TABLET.DR PO ×2 (08:02→20:14)
[2023-08-06] MEDS: Ibuprofen 800 MG TABLET PO (08:02)
[2023-08-06] MEDS: methADONE HCl 20 MG/2 ML ORAL.CONC 120 MG PO (08:02)
[2023-08-06] MEDS: levETIRAcetam 500 MG TABLET PO ×2 (08:02→20:13)
[2023-08-06] MEDS: oxyCODONE HCl ER 10 MG TAB.ER.12H PO ×2 (08:02→20:14)
[2023-08-06] MEDS: 0.9 % Sodium Chloride Flush 3 ML SYRINGE IVFLUSH ×3 (08:03→20:18)
--- NOTE | 2023-08-06 08:12 | HO.PM.IMPN ---
Subjective Subjective Date of Service: 08/06/23 Interval History: fracture Review of Systems s/p foot surgery has significant foot pain no chest pain or sob Physical Exam Vital Signs: Vital Signs: Last Vital Signs Temp 98.0 F 08/06/23 06:25 Pulse 65 08/06/23 06:25 Resp 18 08/06/23 06:25 BP 119/59 L 08/06/23 06:25 Pulse Ox 94 08/06/23 06:25 O2 Del Method Room Air 08/06/23 06:25 O2 Flow Rate 2 08/04/23 15:28 BMI result Body Mass Index 31.4 General: AO X 3, no acute distress Resp: CTA bilateral CVS: [id number]. GI: +BS, NT, no distention Skin: No rash MSK-s/p surgery left ankle wrapped. Neuro: motor grossly intact Psych: appropriate affect Objective Data Active Medications Acetaminophen (Acetaminophen 325 Mg Tablet) 650 mg PO Q6H PRN PRN Reason: Pain, Mild (Pain Scale 1-3) Last Admin: 08/05/23 19:28 Dose: 650 mg Documented By: ANTONIETTA Al Hydroxide/Mg Hydroxide (Magnesium Hydrox/Alum Hydrox 30 Ml Oral.Susp) 30 ml PO Q4H PRN PRN Reason: Heartburn/Nausea Albuterol Sulfate (Albuterol Sulfate 90 Mcg 8 Gm Inhaler) 2 puff INHALE Q4H PRN PRN Reason: Shortness Of Breath Or Wheezing Divalproex Sodium (Divalproex Sodium 250 Mg Tablet.) 250 mg PO BEDTIME [facility] Last Admin: 08/05/23 19:40 Dose: 250 mg Documented By: ANTONIETTA Divalproex Sodium (Divalproex Sodium 500 Mg Tablet.) 500 mg PO BID [facility] Last Admin: 08/06/23 08:02 Dose: 500 mg Documented By: DINAH Enoxaparin Sodium (Enoxaparin Sodium 40 Mg/0.4 Ml Syringe) 40 mg SUBCUT Q24H [facility] Last Admin: 08/05/23 15:47 Dose: 40 mg Documented By: ANTONIETTA Fluticasone/Vilanterol (Fluticasone/Vilanterol 100/25 Blst.W.Dev) 1 puff INHALE RDAILY [facility] Last Admin: 08/05/23 08:22 Dose: 1 puff Documented By: NORA Hydromorphone HCl (Hydromorphone Hcl 0.5 Mg/0.5 Ml Syringe) 1 mg IVPUSH Q4H PRN; Protocol PRN Reason: Pain, Severe (Pain Scale 7-10) Last Admin: 08/06/23 06:42 Dose: 1 mg Documented By: JOSE Hydroxyzine HCl (Hydroxyzine Hcl 25 Mg Tablet) 25 mg PO BID PRN PRN Reason: Anxiety Last Admin: 08/03/23 19:02 Dose: 25 mg Documented By: ANTONIETTA Ibuprofen (Ibuprofen 800 Mg Tablet) 800 mg PO TID PRN PRN Reason: for pain Last Admin: 08/06/23 08:02 Dose: 800 mg Documented By: DINAH Indomethacin (Indomethacin 25 Mg Capsule) 50 mg PO BID [facility] Last Admin: 08/06/23 08:01 Dose: 50 mg Documented By: DINAH Levetiracetam (Levetiracetam 500 Mg Tablet) 500 mg PO BID [facility] Last Admin: 08/06/23 08:02 Dose: 500 mg Documented By: DINAH Magnesium Hydroxide (Milk Of Magnesia 30 Ml Oral.Susp) 30 ml PO DAILY PRN PRN Reason: Constipation Last Admin: 08/01/23 17:13 Dose: 30 ml Documented By: ROSIE Methadone HCl (Methadone Hcl 20 Mg/2 Ml Oral.Conc) 120 mg PO DAILY [facility] Last Admin: 08/06/23 08:02 Dose: 120 mg Documented By: DINAH Methadone HCl (Methadone Hcl 20 Mg/2 Ml Oral.Conc) 30 mg PO BEDTIME [facility] Last Admin: 08/05/23 19:41 Dose: 30 mg Documented By: ANTONIETTA Ondansetron HCl (Ondansetron Odt 4 Mg Tab.Rapdis) 4 mg TRANSLINGU Q8H PRN PRN Reason: Nausea and Vomiting Last Admin: 08/05/23 01:36 Dose: 4 mg Documented By: KENTRELL Oxycodone HCl (Oxycodone Hcl Er 10 Mg Tab.Er.12h) 10 mg PO BID [facility] Last Admin: 08/06/23 08:02 Dose: 10 mg Documented By: DINAH Oxycodone HCl (Oxycodone Hcl Immed Release 5 Mg Tablet) 10 mg PO Q4H PRN PRN Reason: Pain, Severe (Pain Scale 7-10) Last Admin: 08/05/23 17:03 Dose: 10 mg Documented By: ANTONIETTA Promethazine HCl (Promethazine Hcl 25 Mg Tablet) 25 mg PO Q6H PRN PRN Reason: Nausea Last Admin: 08/05/23 09:37 Dose: 25 mg Documented By: MILTON Sodium Chloride (0.9 % Sodium Chloride Flush 3 Ml Syringe) 3 ml IVFLUSH QSHIFT [facility] Last Admin: 08/06/23 08:03 Dose: 3 ml Documented By: DINAH Trazodone HCl (Trazodone Hcl 50 Mg Tablet) 50 mg PO BEDTIME [facility] Last Admin: 08/05/23 19:40 Dose: 50 mg Documented By: ANTONIETTA Labs 07/31/23 10:25 07/31/23 10:25 Assessment and Plan (1) Seizure: Status: Acute (2) Fracture of medial malleolus, left, closed: Status: Acute (3) Closed left fibular fracture: Status: Acute Plan Day -7 48/F with seizure d/o, opioid use desorder on methadone here with fall with distal L fibula fracture Seizure on valproic acid, topomax at home-Neuro recommendedand started Keppra, EEG -Generalized moderate slowing with no evidence of seizure disorder. she believes topomax is making her dizzy and no longer wants to take it, no further seizure Left distal fibula and medial malleolus fractures--Splint, ortho -s/p foot surgery 08/04 adjusted Oxycodone,diluadid for pain,bowel regimen, incentive spriometry h/o of opioid use desorder on high dose of methadone, addiction med consult DVT prophylaxis: lovenox full code need for inpatient: Fibula and medial Malleolus fractures s/p post surgery day 2: need better pain control,so far requiring IV pain medications.Pt/ot. Quality Stroke Does the patient have a stroke diagnosis?: No VTE Prior VTE?: No VTE Risk Level:: Medical - moderate - high VTE Device Contraindication: Treatment Not Tolerated VTE Drug Contraindication: N/A - Med Ordered
[2023-08-06] MEDS: Fluticasone/Vilanterol 100/25 BLST.W.DEV 1 PUFF INHALE (08:23)
[2023-08-06 08:24] VITALS: PULSE 65; RESP 18
[2023-08-06 09:15] VITALS: BP 105/64; PULSE 75; RESP 20; TEMP 36.8; O2SAT 94
[2023-08-06] MEDS: oxyCODONE HCl Immed Release 5 MG TABLET 10 MG PO ×2 (10:30→15:30)
[2023-08-06] MEDS: Docusate Sodium 100 MG CAPSULE PO ×2 (10:30→20:14)
[2023-08-06] MEDS: polyethylene glycoL 3350 17 GM POWD.PACK PO (10:31)
--- NOTE | 2023-08-06 11:07 | P.PNADD_ITS ---
Subjective Subjective Date of Service: 08/06/23 Reason For Visit: Seizure Interim History: Patient seen in follow up Mother present during visit Patient reporting ongoing pain. Most concerned with falling asleep and waking up in severe pain because she slept for several hours and did not receive pain medication (because she was sleeping). Tolerating decrease in methadone dose at night. Reports feeling irritable due to pain. Plan is for d/c to [facility], patient and mother expressing frustration on limited facilities due to patients RUTHIE treatment (methadone). Review of Systems Acute medical concerns: Yes Medical Review of Systems: unchanged Mental Status Exam Mental Status Exam Patient Appearance: Appropriate Level of Consciousness: Drowsy (intermittent) Patient Behavior: Talkative Mood Description: Calm Affect Description: Calm Speech Pattern: Clear Diagnostics Vital Signs (24Hr): Vital Signs - 24 hr 08/05/23 15:16 08/05/23 19:24 08/05/23 19:47 Temperature 97.6 F 97.5 F Pulse Rate 67 71 Respiratory Rate 18 18 Blood Pressure 94/56 L 109/62 Pulse Oximetry 92 92 95 Oxygen Delivery Method Room Air Room Air Room Air 08/06/23 06:25 08/06/23 08:24 08/06/23 09:15 Temperature 98.0 F 98.3 F Pulse Rate 65 65 75 Respiratory Rate 18 18 20 Blood Pressure 119/59 L 105/64 Pulse Oximetry 94 94 Oxygen Delivery Method Room Air Room Air BMI result Body Mass Index 31.4 Labs 07/31/23 10:25 07/31/23 10:25 Imaging Radiology Impressions: ITS Impressions Cervical Spine CT 07/31/23 10:10 IMPRESSION: 1. No acute intracranial pathology. 2. No acute osseous abnormality within the cervical spine. Head CT 07/31/23 10:10 IMPRESSION: 1. No acute intracranial pathology. 2. No acute osseous abnormality within the cervical spine. Ankle X-Ray 07/31/23 10:15 IMPRESSION: Displaced oblique fracture of the distal fibula at the level of the syndesmosis. Possibly comminuted transverse fracture involving the medial malleolus. Marked lateral soft tissue swelling. Foot X-Ray 07/31/23 10:15 IMPRESSION: Displaced oblique fracture of the distal fibula at the level of the syndesmosis. Possibly comminuted transverse fracture involving the medial malleolus. Marked lateral soft tissue swelling. Guidance Fluoroscopy 08/04/23 15:29 IMPRESSION: Hardware in place Medications Medications Current Medications Acetaminophen (Acetaminophen 325 Mg Tablet) 650 mg PO Q6H PRN PRN Reason: Pain, Mild (Pain Scale 1-3) Last Admin: 08/05/23 19:28 Dose: 650 mg Al Hydroxide/Mg Hydroxide (Magnesium Hydrox/Alum Hydrox 30 Ml Oral.Susp) 30 ml PO Q4H PRN PRN Reason: Heartburn/Nausea Albuterol Sulfate (Albuterol Sulfate 90 Mcg 8 Gm Inhaler) 2 puff INHALE Q4H PRN PRN Reason: Shortness Of Breath Or Wheezing Divalproex Sodium (Divalproex Sodium 250 Mg Tablet.) 250 mg PO BEDTIME [facility] Last Admin: 08/05/23 19:40 Dose: 250 mg Divalproex Sodium (Divalproex Sodium 500 Mg Tablet.) 500 mg PO BID [facility] Last Admin: 08/06/23 08:02 Dose: 500 mg Docusate Sodium (Docusate Sodium 100 Mg Capsule) 100 mg PO BID [facility] Last Admin: 08/06/23 10:30 Dose: 100 mg Enoxaparin Sodium (Enoxaparin Sodium 40 Mg/0.4 Ml Syringe) 40 mg SUBCUT Q24H [facility] Last Admin: 08/05/23 15:47 Dose: 40 mg Fluticasone/Vilanterol (Fluticasone/Vilanterol 100/25 Blst.W.Dev) 1 puff INHALE RDAILY [facility] Last Admin: 08/06/23 08:23 Dose: 1 puff Hydromorphone HCl (Hydromorphone Hcl 0.5 Mg/0.5 Ml Syringe) 1 mg IVPUSH Q3H PRN; Protocol PRN Reason: Pain, Severe (Pain Scale 7-10) Last Admin: 08/06/23 10:30 Dose: 1 mg Hydroxyzine HCl (Hydroxyzine Hcl 25 Mg Tablet) 25 mg PO BID PRN PRN Reason: Anxiety Last Admin: 08/03/23 19:02 Dose: 25 mg Indomethacin (Indomethacin 25 Mg Capsule) 50 mg PO BID [facility] Last Admin: 08/06/23 08:01 Dose: 50 mg Levetiracetam (Levetiracetam 500 Mg Tablet) 500 mg PO BID [facility] Last Admin: 08/06/23 08:02 Dose: 500 mg Magnesium Hydroxide (Milk Of Magnesia 30 Ml Oral.Susp) 30 ml PO DAILY PRN PRN Reason: Constipation Last Admin: 08/01/23 17:13 Dose: 30 ml Methadone HCl (Methadone Hcl 20 Mg/2 Ml Oral.Conc) 120 mg PO DAILY [facility] Last Admin: 08/06/23 08:02 Dose: 120 mg Methadone HCl (Methadone Hcl 20 Mg/2 Ml Oral.Conc) 30 mg PO BEDTIME [facility] Last Admin: 08/05/23 19:41 Dose: 30 mg Ondansetron HCl (Ondansetron Odt 4 Mg Tab.Rapdis) 4 mg TRANSLINGU Q8H PRN PRN Reason: Nausea and Vomiting Last Admin: 08/05/23 01:36 Dose: 4 mg Oxycodone HCl (Oxycodone Hcl Er 10 Mg Tab.Er.12h) 10 mg PO BID [facility] Last Admin: 08/06/23 08:02 Dose: 10 mg Oxycodone HCl (Oxycodone Hcl Immed Release 5 Mg Tablet) 10 mg PO Q3H PRN PRN Reason: Pain, Severe (Pain Scale 7-10) Last Admin: 08/06/23 10:30 Dose: 10 mg Polyethylene Glycol (Polyethylene Glycol 3350 17 Gm Powd.Pack) 17 gm PO DAILY [facility] Last Admin: 08/06/23 10:31 Dose: 17 gm Promethazine HCl (Promethazine Hcl 25 Mg Tablet) 25 mg PO Q6H PRN PRN Reason: Nausea Last Admin: 08/05/23 09:37 Dose: 25 mg Sodium Chloride (0.9 % Sodium Chloride Flush 3 Ml Syringe) 3 ml IVFLUSH QSHIFT [facility] Last Admin: 08/06/23 08:03 Dose: 3 ml Trazodone HCl (Trazodone Hcl 50 Mg Tablet) 50 mg PO BEDTIME [facility] Last Admin: 08/05/23 19:40 Dose: 50 mg Allergies Allergies Allergy/AdvReac Type Severity Reaction Status Date / Time amoxicillin [AMOXICILLIN] Allergy Intermediate RASH Verified 07/31/23 09:33 Penicillins [PENICILLINS] Allergy Intermediate RASH Verified 07/31/23 09:33 Narcotics AdvReac Severe Itching Uncoded 06/16/23 08:33 Assessment & Plan Assessment & Plan (1) Opioid use disorder: Status: Acute Code(s): F11.90 - Opioid use, unspecified, uncomplicated Assessment and Plan: * continue methadone at current dose * attempt to cluster care if possible * reminded patient that PRN medications are available Total time managing care of this patient today __35__ minutes.
--- NOTE | 2023-08-06 11:35 | PM.EVENT ---
Event Note Date of Service: 08/06/23 Event Note: No additional acute orthopedic care needed at this time will f/u out patient 08/20/23 at 11:00am [facility]B LLE Elevation Pain management as appropriate Keep slpint clean, dry, and intact Cleared for discharge from orthopedic standpoint Time Spent With Patient Time: Total time managing care of this patient today ____ minutes.
--- NOTE | 2023-08-06 12:19 | W.PM.OPN ---
Operative Note Operative Note Date of Service: 08/04/23 Narrative: Date of Service: 08/04/23 Pre-op diagnosis: left bimalleolar ankle fracture Post-op diagnosis: same Procedure: ORIF lateral mal ORIF medial mal Implants: Avelino Surgeon: Coy Vazquez MD Anesthesia: regional and spinal Was an Tunnel Elastic Operator Chainstitch used for this Procedure?: Yes Tunnel Elastic Operator Chainstitch: Burt Cruz Estimated blood loss (mL): 25 Tourniquet time (min): 40 IV fluids (mL): 800 Pathology: none sent Condition: stable Disposition: PACU Procedure in detail: Patient was brought to the operating room and placed supine on the operative table. All bony prominences were well padded and a time-out was called to identify proper site proper procedure proper surgeon. IV antibiotics per weight were administered. I began by exsanguinating limb is slightly tourniquet to 300 mm Hg. I then made a standard posterolateral incision over the fibula. Full-thickness flaps were taken down to the fibular shaft and distal fibula. The fracture was identified and cleaned with a combination of curette, rongeur and irrigation. A lobster claw was used to provisionally reduce the fracture. One lag screw was placed A to P using standard AO technique. A 6 hole distal fibular locking plate was applied using standard AO technique. Biplanar fluoroscopy was used to confirm hardware position and fracture reduction. Once I was satisfied that both of these were acceptable I irrigated copiously and turned my attention to the medial side. The transverse medial malleolar fracture was identified after skin incision. It was comminuted and anterior. Full-thickness skin flaps were developed and, With a sharp tenaculum, the fracture was reduced. 2 threaded K-wires were then placed from distal to proximal and perpendicular to the fracture. Biplanar fluoroscopy was used to confirm positioning and then they were overdrilled and 2 36 mm 4.0 partially-threaded cannulated cancellous screws were placed across the fracture. I was satisfied with the position and the fracture reduction based on biplanar fluoroscopy. This syndesmosis was tested using external rotation test and was found to be stable. Therefore all instrumentation was removed and copious irrigation was performed. Absorbable suture and jodie were used for closure and the patient was placed into sterile dressings and a well-padded posterior splint. Tourniquet was let down and the patient was extubated brought to recovery room in stable condition there were no known complications.
[2023-08-06 15:04] VITALS: BP 100/57; PULSE 72; RESP 16; TEMP 36.7; O2SAT 93
[2023-08-06] MEDS: Enoxaparin Sodium 40 MG/0.4 ML SYRINGE SUBCUT (15:31)
[2023-08-06] MEDS: Promethazine HCL 25 MG TABLET PO (17:13)
[2023-08-06 19:09] VITALS: BP 105/57; PULSE 65; RESP 18; TEMP 36.6; O2SAT 93
[2023-08-06] MEDS: Divalproex Sodium 250 MG TABLET.DR PO (20:13)
[2023-08-06] MEDS: traZODone HCL 50 MG TABLET PO (20:14)
[2023-08-06] MEDS: methADONE HCl 20 MG/2 ML ORAL.CONC 30 MG PO (20:15)
[2023-08-07 01:47] VITALS: BP 108/60; PULSE 62; RESP 16
[2023-08-07] MEDS: HYDROmorphone HCl 0.5 MG/0.5 ML SYRINGE 1 MG IVPUSH ×5 (01:48→20:57)
--- NOTE | 2023-08-07 07:14 | PC.NURSE ---
Approximately around 01:00, VMT called unit about suspicious behavior of the pt smoking in the room. This RN called security and nursing supervisor special effects about the situation. This RN and an security staff went to pt's room to address the suspicious behavior seen on the camera. Pt told this RN and security staff that she has 3 vapors and pack of cigarettes in purse near bedside. Pt stated that she wasn't using her vapor and has no solid waste truck driver in any of her personal belongings near bedside. This RN and security reinforced the pt about the hospital's policy about smoke free environment. Pt agreed for the security staff to take her 3 vapors and to be locked in an secure locker in security unit. Will continue to monitor the pt's behavior and educate the importance of an smoke free environment.
[2023-08-07 07:17] VITALS: BP 102/57; PULSE 62; RESP 16; TEMP 36.2; O2SAT 96
[2023-08-07] MEDS: methADONE HCl 20 MG/2 ML ORAL.CONC 120 MG PO (08:10)
[2023-08-07] MEDS: levETIRAcetam 500 MG TABLET PO ×2 (08:13→20:36)
[2023-08-07] MEDS: Indomethacin 25 MG CAPSULE 50 MG PO ×2 (08:13→20:36)
[2023-08-07] MEDS: Docusate Sodium 100 MG CAPSULE PO ×2 (08:13→20:36)
[2023-08-07] MEDS: oxyCODONE HCl ER 10 MG TAB.ER.12H PO ×2 (08:14→20:37)
[2023-08-07] MEDS: Divalproex Sodium 500 MG TABLET.DR PO ×2 (08:14→20:36)
[2023-08-07] MEDS: 0.9 % Sodium Chloride Flush 3 ML SYRINGE IVFLUSH ×2 (08:15→16:02)
[2023-08-07] MEDS: Fluticasone/Vilanterol 100/25 BLST.W.DEV 1 PUFF INHALE (08:16)
[2023-08-07 08:19] VITALS: PULSE 64; RESP 16; O2SAT 96
[2023-08-07] MEDS: Promethazine HCL 25 MG TABLET PO (08:20)
--- NOTE | 2023-08-07 08:46 | MHC.CM.PN ---
Addendum entered by Maryellen Nunez 08/07/23 10:19: [facility] anticipates having a bed to offer the patient next week. They are following. Original Note: A clinical update has been sent to [facility] and [facility]. The patient is not ready to discharge. She continues to require IV Dilauded for pain management. Once her pain is managed with PO pain medication. DP STR via BLS.
--- NOTE | 2023-08-07 12:37 | P.PNIM_ITS ---
Subjective Subjective Date of Service: 08/07/23 Interval History: fracture Review of Systems s/p foot surgery foot pain somewhat improving no chest pain or sob Physical Exam 2 Vital Signs: Vital Signs: Last Vital Signs Temp 97.2 F 08/07/23 07:17 Pulse 64 08/07/23 08:19 Resp 16 08/07/23 08:19 BP 102/57 L 08/07/23 07:17 Pulse Ox 96 08/07/23 07:17 O2 Del Method Room Air 08/07/23 07:17 O2 Flow Rate 2 08/04/23 15:28 BMI result Body Mass Index 31.4 General: AO X 3, no acute distress Resp: CTA bilateral CVS: [id number]. GI: +BS, NT, no distention Skin: No rash MSK-s/p surgery left ankle wrapped. Neuro: motor grossly intact Psych: appropriate affect Objective Data Active Medications Acetaminophen (Acetaminophen 325 Mg Tablet) 650 mg PO Q6H PRN PRN Reason: Pain, Mild (Pain Scale 1-3) Last Admin: 08/05/23 19:28 Dose: 650 mg Documented By: ANTONIETTA Al Hydroxide/Mg Hydroxide (Magnesium Hydrox/Alum Hydrox 30 Ml Oral.Susp) 30 ml PO Q4H PRN PRN Reason: Heartburn/Nausea Albuterol Sulfate (Albuterol Sulfate 90 Mcg 8 Gm Inhaler) 2 puff INHALE Q4H PRN PRN Reason: Shortness Of Breath Or Wheezing Divalproex Sodium (Divalproex Sodium 250 Mg Tablet.) 250 mg PO BEDTIME [facility] Last Admin: 08/06/23 20:13 Dose: 250 mg Documented By: JOSE Divalproex Sodium (Divalproex Sodium 500 Mg Tablet.) 500 mg PO BID [facility] Last Admin: 08/07/23 08:14 Dose: 500 mg Documented By: SANTA Docusate Sodium (Docusate Sodium 100 Mg Capsule) 100 mg PO BID [facility] Last Admin: 08/07/23 08:13 Dose: 100 mg Documented By: SANTA Enoxaparin Sodium (Enoxaparin Sodium 40 Mg/0.4 Ml Syringe) 40 mg SUBCUT Q24H [facility] Last Admin: 08/06/23 15:31 Dose: 40 mg Documented By: DINAH Fluticasone/Vilanterol (Fluticasone/Vilanterol 100/25 Blst.W.Dev) 1 puff INHALE RDAILY [facility] Last Admin: 08/07/23 08:16 Dose: 1 puff Documented By: NORA Hydromorphone HCl (Hydromorphone Hcl 0.5 Mg/0.5 Ml Syringe) 1 mg IVPUSH Q3H PRN; Protocol PRN Reason: Pain, Severe (Pain Scale 7-10) Last Admin: 08/07/23 11:49 Dose: 1 mg Documented By: SANTA Hydroxyzine HCl (Hydroxyzine Hcl 25 Mg Tablet) 25 mg PO BID PRN PRN Reason: Anxiety Last Admin: 08/03/23 19:02 Dose: 25 mg Documented By: ANTONIETTA Indomethacin (Indomethacin 25 Mg Capsule) 50 mg PO BID [facility] Last Admin: 08/07/23 08:13 Dose: 50 mg Documented By: SANTA Levetiracetam (Levetiracetam 500 Mg Tablet) 500 mg PO BID [facility] Last Admin: 08/07/23 08:13 Dose: 500 mg Documented By: SANTA Magnesium Hydroxide (Milk Of Magnesia 30 Ml Oral.Susp) 30 ml PO DAILY PRN PRN Reason: Constipation Last Admin: 08/01/23 17:13 Dose: 30 ml Documented By: ROSIE Methadone HCl (Methadone Hcl 20 Mg/2 Ml Oral.Conc) 120 mg PO DAILY [facility] Last Admin: 08/07/23 08:10 Dose: 120 mg Documented By: SANTA Methadone HCl (Methadone Hcl 20 Mg/2 Ml Oral.Conc) 30 mg PO BEDTIME [facility] Last Admin: 08/06/23 20:15 Dose: 30 mg Documented By: JOSE Ondansetron HCl (Ondansetron Odt 4 Mg Tab.Rapdis) 4 mg TRANSLINGU Q8H PRN PRN Reason: Nausea and Vomiting Last Admin: 08/05/23 01:36 Dose: 4 mg Documented By: KENTRELL Oxycodone HCl (Oxycodone Hcl Er 10 Mg Tab.Er.12h) 10 mg PO BID [facility] Last Admin: 08/07/23 08:14 Dose: 10 mg Documented By: SANTA Oxycodone HCl (Oxycodone Hcl Immed Release 5 Mg Tablet) 10 mg PO Q3H PRN PRN Reason: Pain, Severe (Pain Scale 7-10) Last Admin: 08/06/23 15:30 Dose: 10 mg Documented By: DINAH Polyethylene Glycol (Polyethylene Glycol 3350 17 Gm Powd.Pack) 17 gm PO DAILY [facility] Last Admin: 08/07/23 08:21 Dose: Not Given Documented By: SANTA Non-Admin Reason: Patient Refused Promethazine HCl (Promethazine Hcl 25 Mg Tablet) 25 mg PO Q6H PRN PRN Reason: Nausea Last Admin: 08/07/23 08:20 Dose: 25 mg Documented By: SANTA Sodium Chloride (0.9 % Sodium Chloride Flush 3 Ml Syringe) 3 ml IVFLUSH QSHIFT [facility] Last Admin: 08/07/23 08:15 Dose: 3 ml Documented By: SANTA Trazodone HCl (Trazodone Hcl 50 Mg Tablet) 50 mg PO BEDTIME [facility] Last Admin: 08/06/23 20:14 Dose: 50 mg Documented By: NATALSA Labs 07/31/23 10:25 07/31/23 10:25 Assessment and Plan (1) Seizure: Status: Acute (2) Fracture of medial malleolus, left, closed: Status: Acute (3) Closed left fibular fracture: Status: Acute Plan Day -8 48/F with seizure d/o, opioid use desorder on methadone here with fall with distal L fibula fracture Seizure on valproic acid, topomax at home-Neuro recommendedand started Keppra, EEG -Generalized moderate slowing with no evidence of seizure disorder. she believes topomax is making her dizzy and no longer wants to take it, no further seizure Left distal fibula and medial malleolus fractures--Splint, ortho -s/p foot surgery 08/04 adjusted Oxycodone,diluadid for pain,bowel regimen, incentive spriometry h/o of opioid use desorder on high dose of methadone, addiction med consult DVT prophylaxis: lovenox full code need for inpatient: Fibula and medial Malleolus fractures s/p post surgery day 3: need better pain control,so far requiring IV pain medications.Pt/ot. Quality Stroke Does the patient have a stroke diagnosis?: No VTE Prior VTE?: No VTE Risk Level:: Medical - moderate - high VTE Device Contraindication: Treatment Not Tolerated VTE Drug Contraindication: N/A - Med Ordered
[2023-08-07 13:24] VITALS: PULSE 64
[2023-08-07] MEDS: oxyCODONE HCl Immed Release 5 MG TABLET 10 MG PO (13:54)
[2023-08-07 15:10] VITALS: BP 101/61; PULSE 58; RESP 14; TEMP 36.7; O2SAT 92
[2023-08-07] MEDS: Enoxaparin Sodium 40 MG/0.4 ML SYRINGE SUBCUT (16:02)
[2023-08-07] MEDS: traZODone HCL 50 MG TABLET PO (20:36)
[2023-08-07] MEDS: methADONE HCl 20 MG/2 ML ORAL.CONC 30 MG PO (20:37)
[2023-08-07] MEDS: Divalproex Sodium 250 MG TABLET.DR PO (20:57)
--- NOTE | 2023-08-07 23:28 | PC.NURSE ---
Patient refusing care at this time. states she wants to sleep.
[2023-08-08 07:25] VITALS: BP 99/56; PULSE 52; RESP 16; TEMP 36.4; O2SAT 93
[2023-08-08] MEDS: Fluticasone/Vilanterol 100/25 BLST.W.DEV 1 PUFF INHALE (08:20)
[2023-08-08 08:22] VITALS: PULSE 60; RESP 16; O2SAT 90
[2023-08-08] MEDS: Promethazine HCL 25 MG TABLET PO (08:55)
[2023-08-08] MEDS: HYDROmorphone HCl 0.5 MG/0.5 ML SYRINGE 1 MG IVPUSH ×3 (08:55→23:43)
[2023-08-08] MEDS: methADONE HCl 20 MG/2 ML ORAL.CONC 120 MG PO (08:56)
[2023-08-08] MEDS: oxyCODONE HCl ER 10 MG TAB.ER.12H PO ×2 (08:56→20:33)
[2023-08-08] MEDS: Divalproex Sodium 500 MG TABLET.DR PO ×2 (08:56→20:32)
[2023-08-08] MEDS: Docusate Sodium 100 MG CAPSULE PO ×2 (08:56→20:32)
[2023-08-08] MEDS: polyethylene glycoL 3350 17 GM POWD.PACK PO (08:56)
[2023-08-08] MEDS: levETIRAcetam 500 MG TABLET PO ×2 (08:56→20:32)
[2023-08-08] MEDS: 0.9 % Sodium Chloride Flush 3 ML SYRINGE IVFLUSH ×3 (08:57→23:35)
--- NOTE | 2023-08-08 10:56 | P.PNIM_ITS ---
Subjective Subjective Date of Service: 08/08/23 Interval History: fracture Review of Systems s/p foot surgery, foot pain somewhat improving no chest pain or sob Physical Exam 2 Vital Signs: Vital Signs: Last Vital Signs Temp 97.5 F 08/08/23 07:25 Pulse 60 08/08/23 08:22 Resp 16 08/08/23 08:22 BP 99/56 L 08/08/23 07:25 Pulse Ox 93 08/08/23 07:25 O2 Del Method Room Air 08/08/23 07:25 O2 Flow Rate 2 08/04/23 15:28 BMI result Body Mass Index 31.4 General: AO X 3, no acute distress Resp: CTA bilateral CVS: [id number]. GI: +BS, NT, no distention Skin: No rash MSK-s/p surgery left ankle wrapped. Neuro: motor grossly intact Psych: appropriate affect Objective Data Active Medications Acetaminophen (Acetaminophen 325 Mg Tablet) 650 mg PO Q6H PRN PRN Reason: Pain, Mild (Pain Scale 1-3) Last Admin: 08/05/23 19:28 Dose: 650 mg Documented By: ANTONIETTA Al Hydroxide/Mg Hydroxide (Magnesium Hydrox/Alum Hydrox 30 Ml Oral.Susp) 30 ml PO Q4H PRN PRN Reason: Heartburn/Nausea Albuterol Sulfate (Albuterol Sulfate 90 Mcg 8 Gm Inhaler) 2 puff INHALE Q4H PRN PRN Reason: Shortness Of Breath Or Wheezing Divalproex Sodium (Divalproex Sodium 250 Mg Tablet.) 250 mg PO BEDTIME [facility] Last Admin: 08/07/23 20:57 Dose: 250 mg Documented By: VIVIANA Divalproex Sodium (Divalproex Sodium 500 Mg Tablet.) 500 mg PO BID [facility] Last Admin: 08/08/23 08:56 Dose: 500 mg Documented By: MILTON Docusate Sodium (Docusate Sodium 100 Mg Capsule) 100 mg PO BID [facility] Last Admin: 08/08/23 08:56 Dose: 100 mg Documented By: MILTON Enoxaparin Sodium (Enoxaparin Sodium 40 Mg/0.4 Ml Syringe) 40 mg SUBCUT Q24H [facility] Last Admin: 08/07/23 16:02 Dose: 40 mg Documented By: GRAZIC Fluticasone/Vilanterol (Fluticasone/Vilanterol 100/25 Blst.W.Dev) 1 puff INHALE RDAILY [facility] Last Admin: 08/08/23 08:20 Dose: 1 puff Documented By: NORA Hydromorphone HCl (Hydromorphone Hcl 0.5 Mg/0.5 Ml Syringe) 1 mg IVPUSH Q3H PRN; Protocol PRN Reason: Pain, Severe (Pain Scale 7-10) Last Admin: 08/08/23 08:55 Dose: 1 mg Documented By: MILTON Hydroxyzine HCl (Hydroxyzine Hcl 25 Mg Tablet) 25 mg PO BID PRN PRN Reason: Anxiety Last Admin: 08/03/23 19:02 Dose: 25 mg Documented By: ANTONIETTA Levetiracetam (Levetiracetam 500 Mg Tablet) 500 mg PO BID [facility] Last Admin: 08/08/23 08:56 Dose: 500 mg Documented By: MILTON Magnesium Hydroxide (Milk Of Magnesia 30 Ml Oral.Susp) 30 ml PO DAILY PRN PRN Reason: Constipation Last Admin: 08/01/23 17:13 Dose: 30 ml Documented By: ROSIE Methadone HCl (Methadone Hcl 20 Mg/2 Ml Oral.Conc) 120 mg PO DAILY [facility] Last Admin: 08/08/23 08:56 Dose: 120 mg Documented By: MILTON Methadone HCl (Methadone Hcl 20 Mg/2 Ml Oral.Conc) 30 mg PO BEDTIME [facility] Last Admin: 08/07/23 20:37 Dose: 30 mg Documented By: VIVIANA Ondansetron HCl (Ondansetron Odt 4 Mg Tab.Rapdis) 4 mg TRANSLINGU Q8H PRN PRN Reason: Nausea and Vomiting Last Admin: 08/05/23 01:36 Dose: 4 mg Documented By: KENTRELL Oxycodone HCl (Oxycodone Hcl Er 10 Mg Tab.Er.12h) 10 mg PO BID [facility] Last Admin: 08/08/23 08:56 Dose: 10 mg Documented By: MILTON Oxycodone HCl (Oxycodone Hcl Immed Release 5 Mg Tablet) 10 mg PO Q3H PRN PRN Reason: Pain, Severe (Pain Scale 7-10) Last Admin: 08/07/23 13:54 Dose: 10 mg Documented By: SANTA Polyethylene Glycol (Polyethylene Glycol 3350 17 Gm Powd.Pack) 17 gm PO DAILY [facility] Last Admin: 08/08/23 08:56 Dose: 17 gm Documented By: MILTON Promethazine HCl (Promethazine Hcl 25 Mg Tablet) 25 mg PO Q6H PRN PRN Reason: Nausea Last Admin: 08/08/23 08:55 Dose: 25 mg Documented By: MILTON Sodium Chloride (0.9 % Sodium Chloride Flush 3 Ml Syringe) 3 ml IVFLUSH QSHIFT [facility] Last Admin: 08/08/23 08:57 Dose: 3 ml Documented By: MILTON Trazodone HCl (Trazodone Hcl 50 Mg Tablet) 50 mg PO BEDTIME [facility] Last Admin: 08/07/23 20:36 Dose: 50 mg Documented By: VIVIANA Labs 07/31/23 10:25 07/31/23 10:25 Assessment and Plan (1) Seizure: Status: Acute (2) Fracture of medial malleolus, left, closed: Status: Acute (3) Closed left fibular fracture: Status: Acute Plan Day -9 48/F with seizure d/o, opioid use desorder on methadone here with fall with distal L fibula fracture Seizure on valproic acid, topomax at home-Neuro recommendedand started Keppra, EEG -Generalized moderate slowing with no evidence of seizure disorder. she believes topomax is making her dizzy and no longer wants to take it, no further seizure Left distal fibula and medial malleolus fractures--Splint, ortho -s/p foot surgery 08/04 adjusted Oxycodone,diluadid for pain,bowel regimen, incentive spriometry h/o of opioid use desorder on high dose of methadone, addiction med consult DVT prophylaxis: lovenox full code need for inpatient: Fibula and medial Malleolus fractures s/p post surgery day 4: need better pain control,so far requiring IV pain medications.Pt/ot. Quality Stroke Does the patient have a stroke diagnosis?: No VTE Prior VTE?: No VTE Risk Level:: Medical - moderate - high VTE Device Contraindication: Treatment Not Tolerated VTE Drug Contraindication: N/A - Med Ordered
[2023-08-08] MEDS: oxyCODONE HCl Immed Release 5 MG TABLET 10 MG PO ×2 (11:29→21:50)
[2023-08-08 14:25] LABS: Hematocrit 31.4 % (37.0-47.0); Hemoglobin 10.3 g/dl (12.0-16.0)
[2023-08-08 14:41] LABS: Anion Gap 13 (12-20); Blood Urea Nitrogen 21 mg/dL (9-16); Carbon Dioxide 27 mmol/L (22-29); Chloride 106 mmol/L (96-108); Creatinine Clr Calc Pharmacy 108.4; Estimated Glomerular Filt Rate > 60; Glucose Random 98 mg/dL (60-115); Potassium 4.6 mmol/L (3.3-5.1); Sodium 141 mmol/L (135-145)
[2023-08-08 15:30] VITALS: BP 101/58; PULSE 54; RESP 18; TEMP 36.3; O2SAT 90
[2023-08-08] MEDS: Enoxaparin Sodium 40 MG/0.4 ML SYRINGE SUBCUT (16:13)
[2023-08-08 16:15] VITALS: O2SAT 95
--- NOTE | 2023-08-08 16:26 | PC.NURSE ---
Patient reports twitching movements in her hands for the past 2 days,it happens a few times a day,occasionally in her feet,nurse did not observe any,Dr. Leung notified
--- NOTE | 2023-08-08 18:06 | PC.NURSE ---
Patient voided on a commode,bladder scanned by ME[employer]ER nate for 37 ml,ME[employer]ER notified of need for I&O measurement
[2023-08-08 20:31] VITALS: BP 109/58; PULSE 66; RESP 20; TEMP 37.1; O2SAT 96
[2023-08-08] MEDS: Divalproex Sodium 250 MG TABLET.DR PO (20:32)
[2023-08-08] MEDS: traZODone HCL 50 MG TABLET PO (20:32)
[2023-08-08] MEDS: methADONE HCl 20 MG/2 ML ORAL.CONC 30 MG PO (20:33)
[2023-08-08 23:12] VITALS: BP 104/68; PULSE 86; RESP 18; TEMP 36.9; O2SAT 99
[2023-08-09 07:59] VITALS: PULSE 62; RESP 16; O2SAT 90
[2023-08-09] MEDS: Fluticasone/Vilanterol 100/25 BLST.W.DEV 1 PUFF INHALE (07:59)
[2023-08-09 08:00] VITALS: BP 103/55; PULSE 71; RESP 20; TEMP 36.6; O2SAT 98
[2023-08-09] MEDS: Divalproex Sodium 500 MG TABLET.DR PO ×2 (08:54→20:00)
[2023-08-09] MEDS: HYDROmorphone HCl 0.5 MG/0.5 ML SYRINGE 1 MG IVPUSH ×2 (08:54→13:32)
[2023-08-09] MEDS: oxyCODONE HCl ER 10 MG TAB.ER.12H PO ×2 (08:54→20:00)
[2023-08-09] MEDS: levETIRAcetam 500 MG TABLET PO ×2 (08:54→20:01)
[2023-08-09] MEDS: methADONE HCl 20 MG/2 ML ORAL.CONC 120 MG PO (08:55)
[2023-08-09] MEDS: 0.9 % Sodium Chloride Flush 3 ML SYRINGE IVFLUSH ×2 (08:55→15:52)
[2023-08-09] MEDS: Docusate Sodium 100 MG CAPSULE PO ×2 (08:55→20:01)
[2023-08-09] MEDS: Indomethacin 25 MG CAPSULE 50 MG PO ×2 (10:03→20:01)
[2023-08-09] MEDS: Promethazine HCL 25 MG TABLET PO (11:41)
--- NOTE | 2023-08-09 14:14 | HO.PM.IMPN ---
Subjective Subjective Date of Service: 08/09/23 Interval History: foot surgery Review of Systems pain somewhat improivng has some nausea no other symptoms Physical Exam Vital Signs: Vital Signs: Last Vital Signs Temp 97.9 F 08/09/23 08:00 Pulse 71 08/09/23 08:00 Resp 20 08/09/23 08:00 BP 103/55 L 08/09/23 08:00 Pulse Ox 98 08/09/23 08:00 O2 Del Method Room Air 08/09/23 08:00 O2 Flow Rate 2 08/04/23 15:28 BMI result Body Mass Index 31.4 General: AO X 3, no acute distress Resp: CTA bilateral CVS: [id number]. GI: +BS, NT, no distention Skin: No rash MSK-s/p surgery left ankle wrapped. Neuro: motor grossly intact Psych: appropriate affect Objective Data Active Medications Acetaminophen (Acetaminophen 325 Mg Tablet) 650 mg PO Q6H PRN PRN Reason: Pain, Mild (Pain Scale 1-3) Last Admin: 08/05/23 19:28 Dose: 650 mg Documented By: ANTONIETTA Al Hydroxide/Mg Hydroxide (Magnesium Hydrox/Alum Hydrox 30 Ml Oral.Susp) 30 ml PO Q4H PRN PRN Reason: Heartburn/Nausea Albuterol Sulfate (Albuterol Sulfate 90 Mcg 8 Gm Inhaler) 2 puff INHALE Q4H PRN PRN Reason: Shortness Of Breath Or Wheezing Divalproex Sodium (Divalproex Sodium 250 Mg Tablet.) 250 mg PO BEDTIME [facility] Last Admin: 08/08/23 20:32 Dose: 250 mg Documented By: ANTONIETTA Divalproex Sodium (Divalproex Sodium 500 Mg Tablet.) 500 mg PO BID [facility] Last Admin: 08/09/23 08:54 Dose: 500 mg Documented By: MILTON Docusate Sodium (Docusate Sodium 100 Mg Capsule) 100 mg PO BID [facility] Last Admin: 08/09/23 08:55 Dose: 100 mg Documented By: MILTON Enoxaparin Sodium (Enoxaparin Sodium 40 Mg/0.4 Ml Syringe) 40 mg SUBCUT Q24H [facility] Last Admin: 08/08/23 16:13 Dose: 40 mg Documented By: ANTONIETTA Fluticasone/Vilanterol (Fluticasone/Vilanterol 100/25 Blst.W.Dev) 1 puff INHALE RDAILY [facility] Last Admin: 08/09/23 07:59 Dose: 1 puff Documented By: HAYLEY Hydroxyzine HCl (Hydroxyzine Hcl 25 Mg Tablet) 25 mg PO BID PRN PRN Reason: Anxiety Last Admin: 08/03/23 19:02 Dose: 25 mg Documented By: ANTONIETTA Indomethacin (Indomethacin 25 Mg Capsule) 50 mg PO BID [facility] Last Admin: 08/09/23 10:03 Dose: 50 mg Documented By: MILTON Levetiracetam (Levetiracetam 500 Mg Tablet) 500 mg PO BID [facility] Last Admin: 08/09/23 08:54 Dose: 500 mg Documented By: MILTON Magnesium Hydroxide (Milk Of Magnesia 30 Ml Oral.Susp) 30 ml PO DAILY PRN PRN Reason: Constipation Last Admin: 08/01/23 17:13 Dose: 30 ml Documented By: ROSIE Methadone HCl (Methadone Hcl 20 Mg/2 Ml Oral.Conc) 120 mg PO DAILY [facility] Last Admin: 08/09/23 08:55 Dose: 120 mg Documented By: MILTON Methadone HCl (Methadone Hcl 20 Mg/2 Ml Oral.Conc) 30 mg PO BEDTIME [facility] Last Admin: 08/08/23 20:33 Dose: 30 mg Documented By: ANTONIETTA Ondansetron HCl (Ondansetron Odt 4 Mg Tab.Rapdis) 4 mg TRANSLINGU Q6H PRN PRN Reason: Nausea and Vomiting Oxycodone HCl (Oxycodone Hcl Er 10 Mg Tab.Er.12h) 10 mg PO BID [facility] Last Admin: 08/09/23 08:54 Dose: 10 mg Documented By: MILTON Oxycodone HCl (Oxycodone Hcl Immed Release 5 Mg Tablet) 10 mg PO Q3H PRN PRN Reason: Pain, Severe (Pain Scale 7-10) Last Admin: 08/08/23 21:50 Dose: 10 mg Documented By: ANTONIETTA Polyethylene Glycol (Polyethylene Glycol 3350 17 Gm Powd.Pack) 17 gm PO DAILY [facility] Last Admin: 08/09/23 08:55 Dose: Not Given Documented By: MILTON Non-Admin Reason: Patient Refused Sodium Chloride (0.9 % Sodium Chloride Flush 3 Ml Syringe) 3 ml IVFLUSH QSHIFT [facility] Last Admin: 08/09/23 08:55 Dose: 3 ml Documented By: MILTON Trazodone HCl (Trazodone Hcl 50 Mg Tablet) 50 mg PO BEDTIME [facility] Last Admin: 08/08/23 20:32 Dose: 50 mg Documented By: ANTONIETTA Labs 08/08/23 14:13 08/08/23 14:13 Labs: Laboratory Results - last 24 hr 08/08/23 14:13 Anion Gap 13 Estim Creat Clear Calc 108.4 Estimated GFR > 60 Random Glucose 98 Calcium 9.0 Assessment and Plan (1) Seizure: Status: Acute (2) Fracture of medial malleolus, left, closed: Status: Acute (3) Closed left fibular fracture: Status: Acute Plan Day - 48/F with seizure d/o, opioid use desorder on methadone here with fall with distal L fibula fracture Seizure on valproic acid, topomax at home-Neuro recommendedand started Keppra, EEG -Generalized moderate slowing with no evidence of seizure disorder. she believes topomax is making her dizzy and no longer wants to take it, no further seizure Left distal fibula and medial malleolus fractures--Splint, ortho -s/p foot surgery 08/04 continue Oxycodone,tyelenol,indomethacin ,bowel regimen, incentive spriometry trial off dilaudid h/o of opioid use desorder on high dose of methadone, addiction med consult DVT prophylaxis: lovenox. Pt-str full code need for inpatient: awaiting placement. Quality Stroke Does the patient have a stroke diagnosis?: No VTE Prior VTE?: No VTE Risk Level:: Medical - moderate - high VTE Device Contraindication: Treatment Not Tolerated VTE Drug Contraindication: N/A - Med Ordered
--- NOTE | 2023-08-09 15:15 | PC.NURSE ---
IV access 5 days old today, 20g right forearm ultrasound assisted insertion. Very difficult stick. Possible discharge tomorrow. Dr. Leung ok'd to leave IV in for 1 more day.
[2023-08-09 15:39] VITALS: BP 113/57; PULSE 53; RESP 16; TEMP 36.2; O2SAT 96
[2023-08-09] MEDS: Enoxaparin Sodium 40 MG/0.4 ML SYRINGE SUBCUT (15:52)
[2023-08-09] MEDS: oxyCODONE HCl Immed Release 5 MG TABLET 10 MG PO ×2 (15:54→22:05)
[2023-08-09] MEDS: Acetaminophen 325 MG TABLET 975 MG PO (15:54)
[2023-08-09] MEDS: methADONE HCl 20 MG/2 ML ORAL.CONC 30 MG PO (19:59)
[2023-08-09] MEDS: traZODone HCL 50 MG TABLET PO (20:01)
[2023-08-09] MEDS: Divalproex Sodium 250 MG TABLET.DR PO (20:01)
[2023-08-09 23:40] VITALS: BP 110/54; PULSE 60; RESP 18; TEMP 36.5; O2SAT 97
[2023-08-10 08:55] VITALS: BP 106/58; PULSE 46; RESP 18; TEMP 36.6; O2SAT 97
[2023-08-10] MEDS: oxyCODONE HCl ER 10 MG TAB.ER.12H PO ×2 (09:06→18:58)
[2023-08-10] MEDS: Divalproex Sodium 500 MG TABLET.DR PO ×2 (09:07→18:59)
[2023-08-10] MEDS: Docusate Sodium 100 MG CAPSULE PO ×2 (09:07→18:59)
[2023-08-10] MEDS: Indomethacin 25 MG CAPSULE 50 MG PO ×2 (09:07→18:58)
[2023-08-10] MEDS: methADONE HCl 20 MG/2 ML ORAL.CONC 120 MG PO (09:07)
[2023-08-10] MEDS: levETIRAcetam 500 MG TABLET PO ×2 (09:07→18:59)
[2023-08-10] MEDS: oxyCODONE HCl Immed Release 5 MG TABLET 10 MG PO ×4 (09:09→18:52)
[2023-08-10] MEDS: 0.9 % Sodium Chloride Flush 3 ML SYRINGE IVFLUSH ×3 (09:11→23:42)
[2023-08-10 09:16] VITALS: PULSE 74
[2023-08-10 10:06] VITALS: PULSE 74
--- NOTE | 2023-08-10 13:00 | MHC.CM.PN ---
PT continues to recommend STR at discharge. Met with Patient and dtr re DP. Spoke with Maame @ [facility] about services and equipment for discharge. Maame stated that she would like the patient to go to a facility. She requested referrals be sent to [facility] and [facility]. [facility] requested additional clinical information. Waiting to hear back from [facility] once they have reviewed the information that was sent. The patient has been updated on the discharge plan. DP STR via BLS. CM will continue to follow.
--- NOTE | 2023-08-10 14:19 | P.PNIM_ITS ---
Subjective Subjective Date of Service: 08/10/23 Interval History: foot surgery Review of Systems pain more controlled with po pain med regimen no other acute events Physical Exam 2 Vital Signs: Vital Signs: Last Vital Signs Temp 97.8 F 08/10/23 08:55 Pulse 74 08/10/23 10:06 Resp 18 08/10/23 08:55 BP 106/58 L 08/10/23 08:55 Pulse Ox 97 08/10/23 08:55 O2 Del Method Room Air 08/10/23 08:55 O2 Flow Rate 2 08/04/23 15:28 BMI result Body Mass Index 31.4 General: AO X 3, no acute distress Resp: CTA bilateral CVS: [id number]. GI: +BS, NT, no distention Skin: No rash MSK-s/p surgery left ankle wrapped. Neuro: motor grossly intact Psych: appropriate affect Objective Data Active Medications Acetaminophen (Acetaminophen 325 Mg Tablet) 975 mg PO Q6H PRN PRN Reason: Pain, Mild (Pain Scale 1-3) Last Admin: 08/09/23 15:54 Dose: 975 mg Documented By: ANTONIETTA Al Hydroxide/Mg Hydroxide (Magnesium Hydrox/Alum Hydrox 30 Ml Oral.Susp) 30 ml PO Q4H PRN PRN Reason: Heartburn/Nausea Albuterol Sulfate (Albuterol Sulfate 90 Mcg 8 Gm Inhaler) 2 puff INHALE Q4H PRN PRN Reason: Shortness Of Breath Or Wheezing Divalproex Sodium (Divalproex Sodium 250 Mg Tablet.) 250 mg PO BEDTIME [facility] Last Admin: 08/09/23 20:01 Dose: 250 mg Documented By: ANTONIETTA Divalproex Sodium (Divalproex Sodium 500 Mg Tablet.) 500 mg PO BID [facility] Last Admin: 08/10/23 09:07 Dose: 500 mg Documented By: JASE Docusate Sodium (Docusate Sodium 100 Mg Capsule) 100 mg PO BID [facility] Last Admin: 08/10/23 09:07 Dose: 100 mg Documented By: JASE Enoxaparin Sodium (Enoxaparin Sodium 40 Mg/0.4 Ml Syringe) 40 mg SUBCUT Q24H [facility] Last Admin: 08/09/23 15:52 Dose: 40 mg Documented By: ANTONIETTA Fluticasone/Vilanterol (Fluticasone/Vilanterol 100/25 Blst.W.Dev) 1 puff INHALE RDAILY [facility] Last Admin: 08/10/23 07:54 Dose: Not Given Documented By: RADHIKA Non-Admin Reason: Patient Refused Hydroxyzine HCl (Hydroxyzine Hcl 25 Mg Tablet) 25 mg PO BID PRN PRN Reason: Anxiety Last Admin: 08/03/23 19:02 Dose: 25 mg Documented By: ANTONIETTA Indomethacin (Indomethacin 25 Mg Capsule) 50 mg PO BID [facility] Last Admin: 08/10/23 09:07 Dose: 50 mg Documented By: JASE Levetiracetam (Levetiracetam 500 Mg Tablet) 500 mg PO BID [facility] Last Admin: 08/10/23 09:07 Dose: 500 mg Documented By: JASE Magnesium Hydroxide (Milk Of Magnesia 30 Ml Oral.Susp) 30 ml PO DAILY PRN PRN Reason: Constipation Last Admin: 08/01/23 17:13 Dose: 30 ml Documented By: ROSIE Methadone HCl (Methadone Hcl 20 Mg/2 Ml Oral.Conc) 120 mg PO DAILY [facility] Last Admin: 08/10/23 09:07 Dose: 120 mg Documented By: JASE Methadone HCl (Methadone Hcl 20 Mg/2 Ml Oral.Conc) 30 mg PO BEDTIME [facility] Last Admin: 08/09/23 19:59 Dose: 30 mg Documented By: ANTONIETTA Ondansetron HCl (Ondansetron Odt 4 Mg Tab.Rapdis) 4 mg TRANSLINGU Q6H PRN PRN Reason: Nausea and Vomiting Oxycodone HCl (Oxycodone Hcl Er 10 Mg Tab.Er.12h) 10 mg PO BID [facility] Last Admin: 08/10/23 09:06 Dose: 10 mg Documented By: JASE Oxycodone HCl (Oxycodone Hcl Immed Release 5 Mg Tablet) 10 mg PO Q3H PRN PRN Reason: Pain, Severe (Pain Scale 7-10) Last Admin: 08/10/23 12:17 Dose: 10 mg Documented By: JASE Polyethylene Glycol (Polyethylene Glycol 3350 17 Gm Powd.Pack) 17 gm PO DAILY [facility] Last Admin: 08/10/23 09:11 Dose: Not Given Documented By: JASE Non-Admin Reason: Patient Refused Sodium Chloride (0.9 % Sodium Chloride Flush 3 Ml Syringe) 3 ml IVFLUSH QSHIFT [facility] Last Admin: 08/10/23 09:11 Dose: 3 ml Documented By: JASE Trazodone HCl (Trazodone Hcl 50 Mg Tablet) 50 mg PO BEDTIME [facility] Last Admin: 08/09/23 20:01 Dose: 50 mg Documented By: JACQUIIT Labs 08/08/23 14:13 08/08/23 14:13 Assessment and Plan (1) Seizure: Status: Acute (2) Fracture of medial malleolus, left, closed: Status: Acute (3) Closed left fibular fracture: Status: Acute Plan Day -11 48/F with seizure d/o, opioid use desorder on methadone here with fall with distal L fibula fracture Seizure on valproic acid, topomax at home-Neuro recommendedand to add Keppra, EEG -Generalized moderate slowing with no evidence of seizure disorder. continue current regimen-depakote/keppra. she believes topomax is making her dizzy and no longer wants to take it. Left distal fibula and medial malleolus fractures--Splint, ortho -s/p foot surgery 08/04 continue Oxycodone,tyelenol,indomethacin ,bowel regimen, incentive spriometry h/o of opioid use desorder on high dose of methadone, addiction med consult DVT prophylaxis: lovenox. Pt-str full code need for inpatient: awaiting placement. Quality Stroke Does the patient have a stroke diagnosis?: No VTE Prior VTE?: No VTE Risk Level:: Medical - moderate - high VTE Device Contraindication: Treatment Not Tolerated VTE Drug Contraindication: N/A - Med Ordered
[2023-08-10 15:11] VITALS: BP 113/58; PULSE 58; RESP 18; TEMP 36.3
[2023-08-10] MEDS: Enoxaparin Sodium 40 MG/0.4 ML SYRINGE SUBCUT (15:38)
[2023-08-10] MEDS: Acetaminophen 325 MG TABLET 975 MG PO (17:19)
--- NOTE | 2023-08-10 17:26 | PC.NURSE ---
IV outdated ,patient refuses to have it removed or new one inserted since her discharge is tomorrow
[2023-08-10] MEDS: traZODone HCL 50 MG TABLET PO (18:58)
[2023-08-10] MEDS: methADONE HCl 20 MG/2 ML ORAL.CONC 30 MG PO (18:59)
[2023-08-10] MEDS: Divalproex Sodium 250 MG TABLET.DR PO (19:03)
[2023-08-10 23:44] VITALS: RESP 18
[2023-08-11] MEDS: oxyCODONE HCl Immed Release 5 MG TABLET 10 MG PO ×5 (00:58→19:38)
[2023-08-11 01:58] VITALS: RESP 18
[2023-08-11 07:27] VITALS: BP 106/59; PULSE 58; RESP 18; TEMP 36.3; O2SAT 100
[2023-08-11] MEDS: oxyCODONE HCl ER 10 MG TAB.ER.12H PO ×2 (07:41→19:37)
[2023-08-11] MEDS: Divalproex Sodium 500 MG TABLET.DR PO ×2 (07:42→19:37)
[2023-08-11] MEDS: levETIRAcetam 500 MG TABLET PO ×2 (07:42→19:39)
[2023-08-11] MEDS: Indomethacin 25 MG CAPSULE 50 MG PO ×2 (07:42→19:37)
[2023-08-11] MEDS: Docusate Sodium 100 MG CAPSULE PO (07:43)
[2023-08-11] MEDS: methADONE HCl 20 MG/2 ML ORAL.CONC 120 MG PO (07:43)
[2023-08-11] MEDS: 0.9 % Sodium Chloride Flush 3 ML SYRINGE IVFLUSH ×3 (07:43→19:39)
[2023-08-11] MEDS: Fluticasone/Vilanterol 100/25 BLST.W.DEV 1 PUFF INHALE (07:44)
[2023-08-11] MEDS: Acetaminophen 325 MG TABLET 975 MG PO ×2 (07:44→14:17)
--- NOTE | 2023-08-11 07:46 | PM.PNORT ---
Subjective Subjective Date of Service: 08/11/23 Interval history: POD 7 s/p ORIF left ankle no overnight events resting in bed , splint intact denies cp, sob, palpitations Physical Exam Vital Signs: Vital Signs: Last Vital Signs Temp 97.4 F 08/11/23 07:27 Pulse 58 08/11/23 07:27 Resp 18 08/11/23 07:27 BP 106/59 L 08/11/23 07:27 Pulse Ox 100 08/11/23 07:27 O2 Del Method Room Air 08/11/23 07:27 O2 Flow Rate 2 08/04/23 15:28 BMI result Body Mass Index 31.4 Const: General: cooperative, healthy appearing and no acute distress Resp: Effort & Inspection: normal respiratory effort and able to speak in complete sentences Cardio: Rate: regular rate Peripheral pulses: Peripheral pulses 2+ throughout GI: Palpation (GI): Soft to palpation Skin: Lesions: no lesions Rashes: no rashes Extrem: Other: left ankle splint is c/d/i. Able to move all digits. Capillary refill is brisk. Procedures Date of Service Date of Service: 08/11/23 Progress Note: A&P Assessment and plan (1) Fracture of medial malleolus, left, closed: Status: Acute (2) Opioid use disorder: Status: Acute (3) Seizure: Status: Acute (4) Closed left fibular fracture: Status: Acute (5) Seizure disorder: Status: Acute Plan Continue pain mgmnt dvt ppx 24 hours post op PT for LLE NWB Dispo planning-rehab placement Time Spent With Patient Time: Total time managing care of this patient today ____ minutes. Quality Stroke Does the patient have a stroke diagnosis?: No VTE Prior VTE?: No VTE Risk Level:: Medical - moderate - high VTE Device Contraindication: Treatment Not Tolerated VTE Drug Contraindication: N/A - Med Ordered
[2023-08-11 07:47] VITALS: PULSE 54; RESP 18; O2SAT 98
--- NOTE | 2023-08-11 11:15 | P.PNIM_ITS ---
Subjective Subjective Date of Service: 08/11/23 Interval History: foot surgery Review of Systems pain more controlled with po pain med regimen no other acute events Physical Exam 2 Vital Signs: Vital Signs: Last Vital Signs Temp 97.4 F 08/11/23 07:27 Pulse 54 08/11/23 07:47 Resp 18 08/11/23 07:47 BP 106/59 L 08/11/23 07:27 Pulse Ox 100 08/11/23 07:27 O2 Del Method Room Air 08/11/23 07:27 O2 Flow Rate 2 08/04/23 15:28 BMI result Body Mass Index 31.4 General: AO X 3, no acute distress Resp: CTA bilateral CVS: [id number]. GI: +BS, NT, no distention Skin: No rash MSK-s/p surgery left ankle wrapped. Neuro: motor grossly intact Psych: appropriate affect Objective Data Active Medications Acetaminophen (Acetaminophen 325 Mg Tablet) 975 mg PO Q6H PRN PRN Reason: Pain, Mild (Pain Scale 1-3) Last Admin: 08/11/23 07:44 Dose: 975 mg Documented By: DARLIN Al Hydroxide/Mg Hydroxide (Magnesium Hydrox/Alum Hydrox 30 Ml Oral.Susp) 30 ml PO Q4H PRN PRN Reason: Heartburn/Nausea Albuterol Sulfate (Albuterol Sulfate 90 Mcg 8 Gm Inhaler) 2 puff INHALE Q4H PRN PRN Reason: Shortness Of Breath Or Wheezing Divalproex Sodium (Divalproex Sodium 250 Mg Tablet.) 250 mg PO BEDTIME [facility] Last Admin: 08/10/23 19:03 Dose: 250 mg Documented By: LEONELA Divalproex Sodium (Divalproex Sodium 500 Mg Tablet.) 500 mg PO BID [facility] Last Admin: 08/11/23 07:42 Dose: 500 mg Documented By: HUBEREMA Docusate Sodium (Docusate Sodium 100 Mg Capsule) 100 mg PO BID [facility] Last Admin: 08/11/23 07:43 Dose: 100 mg Documented By: DARLIN Enoxaparin Sodium (Enoxaparin Sodium 40 Mg/0.4 Ml Syringe) 40 mg SUBCUT Q24H [facility] Last Admin: 08/10/23 15:38 Dose: 40 mg Documented By: BEIT Fluticasone/Vilanterol (Fluticasone/Vilanterol 100/25 Blst.W.Dev) 1 puff INHALE RDAILY [facility] Last Admin: 08/11/23 07:44 Dose: 1 puff Documented By: BRESNE Hydroxyzine HCl (Hydroxyzine Hcl 25 Mg Tablet) 25 mg PO BID PRN PRN Reason: Anxiety Last Admin: 08/03/23 19:02 Dose: 25 mg Documented By: BEIT Indomethacin (Indomethacin 25 Mg Capsule) 50 mg PO BID [facility] Last Admin: 08/11/23 07:42 Dose: 50 mg Documented By: COTEMA Levetiracetam (Levetiracetam 500 Mg Tablet) 500 mg PO BID [facility] Last Admin: 08/11/23 07:42 Dose: 500 mg Documented By: COTEMA Magnesium Hydroxide (Milk Of Magnesia 30 Ml Oral.Susp) 30 ml PO DAILY PRN PRN Reason: Constipation Last Admin: 08/01/23 17:13 Dose: 30 ml Documented By: ROSIE Methadone HCl (Methadone Hcl 20 Mg/2 Ml Oral.Conc) 120 mg PO DAILY [facility] Last Admin: 08/11/23 07:43 Dose: 120 mg Documented By: HUBEREMA Methadone HCl (Methadone Hcl 20 Mg/2 Ml Oral.Conc) 30 mg PO BEDTIME [facility] Last Admin: 08/10/23 18:59 Dose: 30 mg Documented By: LEONELA Ondansetron HCl (Ondansetron Odt 4 Mg Tab.Rapdis) 4 mg TRANSLINGU Q6H PRN PRN Reason: Nausea and Vomiting Oxycodone HCl (Oxycodone Hcl Er 10 Mg Tab.Er.12h) 10 mg PO BID [facility] Last Admin: 08/11/23 07:41 Dose: 10 mg Documented By: COTEMA Oxycodone HCl (Oxycodone Hcl Immed Release 5 Mg Tablet) 10 mg PO Q4H PRN PRN Reason: Pain, Moderate(Pain Scale 4-6) Polyethylene Glycol (Polyethylene Glycol 3350 17 Gm Powd.Pack) 17 gm PO DAILY [facility] Last Admin: 08/11/23 07:43 Dose: Not Given Documented By: COTEMA Non-Admin Reason: Patient Refused Sodium Chloride (0.9 % Sodium Chloride Flush 3 Ml Syringe) 3 ml IVFLUSH QSHIFT [facility] Last Admin: 08/11/23 07:43 Dose: 3 ml Documented By: COTEMA Trazodone HCl (Trazodone Hcl 50 Mg Tablet) 50 mg PO BEDTIME [facility] Last Admin: 08/10/23 18:58 Dose: 50 mg Documented By: VENLA Labs 08/08/23 14:13 08/08/23 14:13 Assessment and Plan (1) Seizure: Status: Acute (2) Fracture of medial malleolus, left, closed: Status: Acute (3) Closed left fibular fracture: Status: Acute Plan Day - 48/F with seizure d/o, opioid use desorder on methadone here with fall with distal L fibula fracture Seizure on valproic acid, topomax at home-Neuro recommendedand to add Keppra, EEG -Generalized moderate slowing with no evidence of seizure disorder. continue current regimen-depakote/keppra. she believes topomax is making her dizzy and no longer wants to take it. Left distal fibula and medial malleolus fractures--Splint, ortho -s/p foot surgery 08/04 continue Oxycodone,tyelenol,indomethacin ,bowel regimen, incentive spriometry h/o of opioid use desorder on high dose of methadone, addiction med consult DVT prophylaxis: lovenox. Pt-str full code need for inpatient: awaiting placement. Quality Stroke Does the patient have a stroke diagnosis?: No VTE Prior VTE?: No VTE Risk Level:: Medical - moderate - high VTE Device Contraindication: Treatment Not Tolerated VTE Drug Contraindication: N/A - Med Ordered
[2023-08-11] MEDS: Enoxaparin Sodium 40 MG/0.4 ML SYRINGE SUBCUT (15:29)
[2023-08-11 15:32] VITALS: BP 101/55; PULSE 56; RESP 18; TEMP 36.1; O2SAT 96
[2023-08-11 16:13] VITALS: BP 101/55; PULSE 56; O2SAT 96
[2023-08-11 19:25] VITALS: BP 106/57; PULSE 72; RESP 20; TEMP 36.2; O2SAT 96
[2023-08-11] MEDS: traZODone HCL 50 MG TABLET PO (19:37)
[2023-08-11] MEDS: Divalproex Sodium 250 MG TABLET.DR PO (19:37)
[2023-08-11] MEDS: methADONE HCl 20 MG/2 ML ORAL.CONC 30 MG PO (19:39)
[2023-08-12 07:34] VITALS: BP 104/65; PULSE 54; RESP 14; TEMP 36.4; O2SAT 97
[2023-08-12] MEDS: oxyCODONE HCl Immed Release 5 MG TABLET 10 MG PO ×2 (07:48→11:43)
[2023-08-12] MEDS: levETIRAcetam 500 MG TABLET PO (07:48)
[2023-08-12] MEDS: methADONE HCl 20 MG/2 ML ORAL.CONC 120 MG PO (07:48)
[2023-08-12] MEDS: Docusate Sodium 100 MG CAPSULE PO (07:48)
[2023-08-12] MEDS: 0.9 % Sodium Chloride Flush 3 ML SYRINGE IVFLUSH (07:48)
[2023-08-12] MEDS: oxyCODONE HCl ER 10 MG TAB.ER.12H PO (07:48)
[2023-08-12] MEDS: Divalproex Sodium 500 MG TABLET.DR PO (07:48)
[2023-08-12] MEDS: Indomethacin 25 MG CAPSULE 50 MG PO (07:48)
[2023-08-12] MEDS: Ondansetron ODT 4 MG TAB.RAPDIS TRANSLINGU (08:27)
--- NOTE | 2023-08-12 10:33 | P.DS_ITS ---
DS: Providers Provider Date of Service: 08/12/23 Date of admission: 07/31/23 15:29 Date of discharge: 08/12/23 Primary care physician: Magen Lantigua MD Consults: 08/01/23 07:49 Consult to Orthopedics Routine Consulting Provider: [facility] Orthopedic Surgeons Reason for consultation: Displaced oblique fracture of the distal fibula at the level of the syndesm 08/01/23 13:22 Addiction Medicine Routine Consulting Provider: Addiction Covering Reason for consultation: Opioid use disorder DS: Diagnosis Discharge Diagnosis (1) Seizure: Status: Acute (2) Fracture of medial malleolus, left, closed: Status: Acute (3) Closed left fibular fracture: Status: Acute (4) Opioid use disorder: Status: Acute DS: Summary Hospital Course Hospital Course: from admission H+P, 07/31/23, by hospitalist Kali Finn MD: 48 year old with history of siezure d/o, history of opiodi use desorder but states she has been in recovery she presents to the ED with co of fall yesterday with left ankle injury, she's also reporting seizure yesterday. Xray of the left ankle show Displaced oblique fracture of the distal fibula at the level of thesyndesmosis. Possibly comminuted transverse fracture involving the medial malleolus. Marked lateral soft tissue swelling. She has a splint on . She is drowsy but easily aroused and answers questions apropriately.. Neurologist has seen her and recommending adding Keppra and if possible to do EEG She was admitted to the medical-surgical floor. Neurology was consulted. EEG showed generalized moderate slowing. Valproate was continued but due to reported side effects of topiramate, it was replaced with levetiracetam. No further seizures. As for the left distal fibula and medial malleolus fractures, she underwent ORIF on 08/06/23. She needs to be non-weight bearing for 6 weeks and was transferred to a SNF for short-term rehabilitation. As for her opioid use disorder, she met with the addition medicine specialist and evening methadone dose was reduced as per patient preference. Acute pain from the fracture was treated with oxycodone. Time Attestation Discharge coordination time: Greater than 30 minutes Quality: Safe Use of Opioids Does Pt have an Active Cancer Diagnosis on the Problem List?: No Quality: Stroke Does the patient have a stroke diagnosis?: No Physical Exam Vital Signs: Vital Signs: Last Vital Signs Temp 97.5 F 08/12/23 07:34 Pulse 54 08/12/23 07:34 Resp 14 08/12/23 07:34 BP 104/65 08/12/23 07:34 Pulse Ox 97 08/12/23 07:34 O2 Del Method Room Air 08/12/23 07:34 O2 Flow Rate 2 08/04/23 15:28 BMI result Body Mass Index 31.4 Gen: in no acute distress HEENT: sclera anicteric, moist mucus membranes Neck: supple Lungs: clear to auscultation bilaterally Heart: regular rate and rhythm, no murmurs Abd: soft, non-tender, non-distended Ext: no edema, L ankle in splint and distally neurovascularly intact Skin: warm/well-perfused Neuro: alert and oriented x3, no focal findings Psych: appropriate affect DS: Data Data Completed and Pending Completed studies during hospitalization [Text1]: Laboratory Results WBC 3.7 X10*3/uL (4.8-10.8) L 07/31/23 10:25 RBC 4.31 X10*6/uL (4.20-5.50) 07/31/23 10:25 Hgb 10.3 g/dl (12.0-16.0) L 08/08/23 14:13 Hct 31.4 % (37.0-47.0) L 08/08/23 14:13 MCV 82.8 fL (80.0-98.0) 07/31/23 10:25 MCH 27.4 pg (27.0-33.0) 07/31/23 10:25 MCHC 33.1 g/dl (31.0-35.0) 07/31/23 10:25 RDW 13.3 % (11.0-16.0) 07/31/23 10:25 Plt Count 156 X10*3/uL (160-400) L 07/31/23 10:25 MPV 9.9 fL (9.4-12.3) 07/31/23 10:25 Immature Gran % (Auto) 0.3 % (0.0-0.4) 07/31/23 10:25 Neut % (Auto) 58.7 % (45-73) 07/31/23 10:25 Lymph % (Auto) 28.5 % (20-40) 07/31/23 10:25 Major % (Auto) 11.1 % (2-11) H 07/31/23 10:25 Eos % (Auto) 1.1 % (0-4) 07/31/23 10:25 Baso % (Auto) 0.3 % (0-2) 07/31/23 10:25 Lymph # (Auto) 1.1 X10*3/uL (1.2-4.9) L 07/31/23 10:25 Major # (Auto) 0.4 X10*3/uL (0.1-1.2) 07/31/23 10:25 Eos # (Auto) 0.0 X10*3/uL (0.0-0.4) 07/31/23 10:25 Baso # (Auto) 0.0 X10*3/uL (0.0-0.2) 07/31/23 10:25 Abs Immat Gran (auto) 0.01 X10*3/uL (0.00-0.03) 07/31/23 10:25 Absolute Neuts (auto) 2.2 x10*3/uL (2.0-8.3) 07/31/23 10:25 Absolute Nucleated RBC 0.000 X10*3/uL (0.0-0.012) 07/31/23 10:25 Nucleated RBC % (auto) 0.0 /100WBC (0.0-0.2) 07/31/23 10:25 PT 11.3 SEC (11.1-13.3) 07/31/23 10:25 INR 0.9 (0.9-1.1) 07/31/23 10:25 Sodium 141 mmol/L (135-145) 08/08/23 14:13 Potassium 4.6 mmol/L (3.3-5.1) 08/08/23 14:13 Chloride 106 mmol/L (96-108) 08/08/23 14:13 Carbon Dioxide 27 mmol/L (22-29) 08/08/23 14:13 Anion Gap 13 (12-20) 08/08/23 14:13 BUN 21 mg/dL (9-16) H 08/08/23 14:13 Creatinine 0.86 mg/dL (0.5-1.4) 08/08/23 14:13 Estim Creat Clear Calc 108.4 08/08/23 14:13 Estimated GFR > 60 08/08/23 14:13 POC Glucose 111 mg/dL (60-115) 07/31/23 09:29 Random Glucose 98 mg/dL (60-115) 08/08/23 14:13 Calcium 9.0 mg/dL (8.4-10.2) 08/08/23 14:13 Magnesium 2.1 mg/dL (1.6-2.6) 07/31/23 10:25 Total Bilirubin 0.3 mg/dL (0.0-1.0) 07/31/23 10:25 AST 12 U/L (5-31) 07/31/23 10:25 ALT 9 U/L (0-31) 07/31/23 10:25 Alkaline Phosphatase 61 U/L (39-117) 07/31/23 10:25 Troponin I High Sens < 2.7 ng/L (<3.5-17.0) 07/31/23 10:25 Total Protein 6.3 g/dL (6.5-8.0) L 07/31/23 10:25 Albumin 3.7 g/dL (3.5-5.0) 07/31/23 10:25 Beta HCG, Quant < 2 mIU/mL 07/31/23 10:25 Urine Color Yellow 08/01/23 12:52 Urine Appearance Clear 08/01/23 12:52 Urine pH 6.5 (5.0-9.0) 08/01/23 12:52 Ur Specific [place] 1.020 (1.005-1.025) 08/01/23 12:52 Urine Protein Negative mg/dL (Neg-Trace) 08/01/23 12:52 Urine Glucose (UA) Negative mg/dL (Negative) 08/01/23 12:52 Urine Ketones Trace mg/dL (Negative) 08/01/23 12:52 Urine Blood Negative (Negative) 08/01/23 12:52 Urine Nitrite Negative (Negative) 08/01/23 12:52 Ur Leukocyte Esterase Negative (Negative) 08/01/23 12:52 Urine Opiates Screen Not Detected (Not Detect) 08/01/23 12:52 Urine Fentanyl Screen Not Detected (Not Detect) 08/01/23 12:52 Ur Barbiturates Screen Not Detected (Not Detect) 08/01/23 12:52 Valproic Acid 61.9 mcg/mL (50.0-100.0) 07/31/23 10:25 Ur Phencyclidine Scrn Not Detected (Not Detect) 08/01/23 12:52 Ur Amphetamines Screen Not Detected (Not Detect) 08/01/23 12:52 U Benzodiazepines Scrn Not Detected (Not Detect) 08/01/23 12:52 Urine Cocaine Screen Not Detected (Not Detect) 08/01/23 12:52 U Marijuana (THC) Screen Not Detected (Not Detect) 08/01/23 12:52 Ethyl Alcohol < 10 mg/dL 07/31/23 10:25 COVID-19 (ZEINA) Negative (Negative) 07/31/23 10:25 COVID-19 Clin Com See Note 07/31/23 10:25 Influenza Type A (JEROMY) Negative (Negative) 07/31/23 10:25 Influenza Type B (JEROMY) Negative (Negative) 07/31/23 10:25 Influenza A & B Note See Note 07/31/23 10:[address] 07/31/23 10:10 IMPRESSION: 1. No acute intracranial pathology. 2. No acute osseous abnormality within the cervical spine. Head CT 07/31/23 10:10 IMPRESSION: 1. No acute intracranial pathology. 2. No acute osseous abnormality within the cervical spine. Ankle X-Ray 07/31/23 10:15 IMPRESSION: Displaced oblique fracture of the distal fibula at the level of the syndesmosis. Possibly comminuted transverse fracture involving the medial malleolus. Marked lateral soft tissue swelling. Foot X-Ray 07/31/23 10:15 IMPRESSION: Displaced oblique fracture of the distal fibula at the level of the syndesmosis. Possibly comminuted transverse fracture involving the medial malleolus. Marked lateral soft tissue swelling. Guidance Fluoroscopy 08/04/23 15:29 IMPRESSION: Hardware in place Discharge Plan Discharge Anticipated Discharge Date/Time: 08/10/23 11:57 Patient Disposition: Xfer SNF Discharge Diagnosis: left foot fracture Referrals: Magen Lantigua MD [Primary Care Provider] - 1 Week Burt Cruz PA-C [Physician Hatch Boss] - 08/20/23 11:30 am Discharge Medications: New polyethylene glycol 3350 17 gram Powder In Packet 17 g PO DAILY Qty: 1 0RF levetiracetam 500 mg Tablet 500 mg PO BID Qty: 1 0RF methadone [Methadose] 10 mg/mL Concentrate 30 mg PO BEDTIME Qty: 1 0RF Rx Instructions: Partial Fill upon patient request. ondansetron 4 mg Tablet,Disintegrating 4 mg translingual Q6H PRN (Reason: Nausea And Vomiting) Qty: 1 0RF oxycodone 5 mg Tablet 10 mg PO Q4H PRN (Reason: Pain, Moderate(Pain Scale 4-6)) Qty: 1 0RF Rx Instructions: Partial Fill upon patient request. oxycodone [OxyContin] 10 mg Tablet,Oral Only,Ext.Rel.12 Hr 10 mg PO BID Qty: 1 0RF Rx Instructions: Partial Fill upon patient request. Continued ibuprofen 800 mg tablet 800 mg PO TID PRN (Reason: for pain) Qty: 90 0RF (DME) nebulizer and compressor [PureAir Mini Nebulizer] Device See Rx Instructions .Route Qty: 1 0RF Rx Instructions: As directed divalproex 250 mg tablet,delayed release (DR/EC) 250 mg PO BEDTIME Rx Instructions: TOTAL BEDTIME DOSE OF 750MG trazodone 50 mg tablet 50 - 100 mg PO BEDTIME divalproex 500 mg tablet,delayed release (DR/EC) 500 mg PO BID indomethacin 50 mg capsule 50 mg PO BID methadone [Methadone Intensol] 10 mg/mL Concentrate 120 mg PO DAILY ondansetron 4 mg tablet,disintegrating 4 mg PO DAILY PRN (Reason: Nausea) oxycodone 5 mg tablet 5 mg PO QID PRN (Reason: Pain) diclofenac sodium 1 % gel 1 g topical DAILY PRN (Reason: Pain) Dulera 100-5 mcg/actuation HFA aerosol inhaler 2 puff inhalation BID hydroxyzine HCl 25 mg tablet 25 mg PO BID PRN (Reason: Anxiety) albuterol sulfate 90 mcg/actuation HFA aerosol inhaler 2 puff inhalation Q4-6H PRN (Reason: Shortness Of Breath Or Wheezing) Discontinued topiramate 25 mg tablet 25 mg PO BID methadone [Methadone Intensol] 10 mg/mL Concentrate 100 mg PO BEDTIME Discharge Orders: Discharge Order (Routine); Ordered 08/12/23 Ordered By: Natasha Francisco Diet: Advance to usual diet Activity on Discharge: As tolerated Stand Alone Forms: Patient Portal Discharge page Activity Restrictions/Additional Instructions: Keep splint clean, dry, and intact Elevate throughout the day Nonweightbearing left lower extremity Do not bathe or shower--keep splint dry Call [facility] orthopedics with any questions or concerns. Follow up with orthopedics 08/20/23 at 11:00am Care Plan Goals: seizure control fracture healing Health Concerns: seizure ankle fracture Plan of Treatment: * NWB x6 weeks left lower extremity * Elevat on three pillows above heart level * Keep splint clean, dry, and intact * No tub bath or shower * Follow up with orthopedics in 1 week for wound check seizure disorder: change topiramate to levetiracetam transfer to short-term rehabilitation, anticipated LOS<30d Assessment: as above.
[2023-08-12] MEDS: Acetaminophen 325 MG TABLET 975 MG PO (11:10)
--- NOTE | 2023-08-29 21:16 | PM.CNOR ---
History of Present Illness HPI Consult date: 08/28/23 Chief complaint: Seizure Narrative: 48 yo female admitted to the medical service for ABDIRAHMAN . She is s/p Left ankle ORIF 08/05/[address] Vazquez. She was scheduled to see me for a post op appt 08/27/23 for jodie removal. Review of Systems Review of Systems: Yes all other systems are reviewed and are negative [facility] Past Medical History Medical History Clavicle fracture Narcotic abuse Seizures Asthma COPD (chronic obstructive pulmonary disease) Surgical History Surgical History H/O right knee surgery H/O left knee surgery Social History Social History Household Members: Unknown / Unable to assess Household Members Other:: pt refused to respond Housing: House Do you presently have visiting nurse or other home services: No Alcohol intake: unknown Patient Tobacco Use Status: Tobacco use Unknown Tobacco use type: Smokeless Tobacco Second Hand Smoke Exposure: No Substance Use Type: Crack/Cocaine and Opiates Advance Directives Date on File: 07/31/23 service: No Meds Allergies Allergy/AdvReac Type Severity Reaction Status Date / Time amoxicillin [AMOXICILLIN] Allergy Intermediate RASH Verified 07/31/23 09:33 Penicillins [PENICILLINS] Allergy Intermediate RASH Verified 07/31/23 09:33 Home Medications Medication Instructions Recorded Confirmed Last Taken Type albuterol sulfate 90 mcg/actuation 2 puff inhalation Q4-6H PRN 07/31/23 08/27/23 Unknown History aerosol inhaler Shortness Of Breath Or Wheezing divalproex 250 mg tablet,delayed 750 mg PO BEDTIME 07/31/23 08/27/23 07/30/23 History release divalproex 500 mg tablet,delayed 500 mg PO DAILY 07/31/23 08/27/23 07/30/23 History release hydroxyzine HCl 25 mg tablet 25 mg PO BID PRN Anxiety 07/31/23 08/27/23 Unknown History indomethacin 50 mg capsule 50 mg PO BID 07/31/23 08/27/23 07/31/23 History methadone 10 mg/mL oral 120 mg PO DAILY@0900 07/31/23 08/28/23 08/27/23 History concentrate (Methadone Intensol) mometasone-formoterol HFA 100 2 puff inhalation BID 07/31/23 08/27/23 Unknown History mcg-5 mcg/actuation aerosol inhaler (Dulera) trazodone 50 mg tablet 100 mg PO BEDTIME 07/31/23 08/27/23 Unknown History mirtazapine 15 mg tablet 15 mg PO BEDTIME 08/27/23 08/27/23 Unknown History oxycodone 5 mg tablet 10 mg PO Q4H PRN Pain, 08/27/23 08/27/23 Unknown History Moderate(Pain Scale 4-6) sumatriptan succinate 50 mg tablet 50 mg PO DAILY MRX1 PRN Migraine 08/27/23 08/27/23 Unknown History Headache Physical Exam Vital Signs: Vital Signs: Last Vital Signs Temp 97.5 F 08/12/23 07:34 Pulse 54 08/12/23 07:34 Resp 14 08/12/23 07:34 BP 104/65 08/12/23 07:34 Pulse Ox 97 08/12/23 07:34 O2 Del Method Room Air 08/12/23 07:34 O2 Flow Rate 2 08/04/23 15:28 BMI result Body Mass Index 31.4 Extrem: Other: Left ankle is normal to inspection incision is clean dry and intact jodie intact. Minimal swelling throughout the foot. Neurovascularly intact. Results Labs 08/08/23 14:13 08/08/23 14:13 Labs: H & H 07/31/23 08/08/23 Range/Units 10:25 14:13 Hgb 11.8 L 10.3 L (12.0-16.0) g/dl Hct 35.7 L 31.4 L (37.0-47.0) % Coagulation 07/31/23 Range/Units 10:25 INR 0.9 (0.9-1.1) All other labs normal. Assessment and Plan (1) Fracture of medial malleolus, left, closed: Qualifiers: Encounter type: subsequent encounter Fracture alignment: displaced Fracture healing: with routine healing Qualified Code(s): S82.52XD - Displaced fracture of medial malleolus of left tibia, subsequent encounter for closed fracture with routine healing Status: Acute Plan Jenkinjones removed, steri strips applied Splint re-applied NWB Follow up in orthoepdic office next week for cast Procedures Date of Service Date of Service: 08/29/23
== END 2023-08-12 15:25 | disposition skilled nursing facility (03) | DRG 493 ==
LOC: HO.ED 14:35 → HO.S3 19:08 → HO.EDOVER 08-02 10:17
PROVIDERS: Internal Medicine; Orthopaedic Surgery; Registered Nurse Emergency; Admitting Provider Internal Medicine; Emergency Provider Emergency Medicine; PCP Internal Medicine; Visit Provider Family Medicine
PROC: 0QSH04Z Reposition Left Tibia with Internal Fixation Device, Open Approach (ICD-10-PCS; principal; 2023-08-04 14:00)
DX: S82.432A Displaced oblique fracture of shaft of left fibula, initial encounter for closed fracture (principal); F11.20 Opioid dependence, uncomplicated; G40.209 Localization-related (focal) (partial) symptomatic epilepsy and epileptic syndromes with complex partial seizures, not intractable, without status epilepticus; S82.52XA Displaced fracture of medial malleolus of left tibia, initial encounter for closed fracture; G89.18 Other acute postprocedural pain; W19.XXXA Unspecified fall, initial encounter; F17.210 Nicotine dependence, cigarettes, uncomplicated; Z71.6 Tobacco abuse counseling; Z20.822 Contact with and (suspected) exposure to COVID-19; F31.9 Bipolar disorder, unspecified; Z91.148 Patient's other noncompliance with medication regimen for other reason; Z79.899 Other long term (current) drug therapy
CPT/HCPCS: 36415; 70450; 72125; 73610; 73630; 80048; 80053; 80164; 80307; 81003; 82947; 83735; 84484; 84702; 85014; 85018; 85025; 85610; 87502; 87635; 93005; 94640; 95816; 97110; 97162; 97530; 99024; 99285; C1713; J0690; J1170; J1650; J2250; J2704; J2795

== ENCOUNTER → 2023-07-31 09:30 | Outpatient (BNV) | payer OTHER, SELFPAY | PROVIDERS: Emergency Provider Emergency Medicine; PCP Internal Medicine; Visit Provider Internal Medicine | DX: R00.1 Bradycardia, unspecified (principal) | CPT/HCPCS: 93010 ==

== ENCOUNTER → 2023-07-31 09:45 | Outpatient (BNV) | payer OTHER, SELFPAY | PROVIDERS: Emergency Provider Emergency Medicine; PCP Internal Medicine; Visit Provider Psychiatry & Neurology Neurology | DX: G40.909 Epilepsy, unspecified, not intractable, without status epilepticus (principal) | CPT/HCPCS: 99222 ==

== ENCOUNTER → 2023-07-31 15:29 | Outpatient (BNV) | payer OTHER, SELFPAY | PROVIDERS: Admitting Provider Internal Medicine; Emergency Provider Emergency Medicine; PCP Internal Medicine; Visit Provider Nurse Practitioner Psychiatric/Mental Health | DX: F11.90 Opioid use, unspecified, uncomplicated (principal) | CPT/HCPCS: 99232 ==

== ENCOUNTER → 2023-07-31 15:29 | Outpatient (BNV) | payer OTHER, SELFPAY | PROVIDERS: Admitting Provider Internal Medicine; Emergency Provider Emergency Medicine; PCP Internal Medicine; Visit Provider Physician Assistant | DX: S82.52XD Displaced fracture of medial malleolus of left tibia, subsequent encounter for closed fracture with routine healing (principal) | CPT/HCPCS: 27814; 99024; 99221; 99233; 99499 ==

== ENCOUNTER → 2023-07-31 15:29 | Outpatient (BNV) | payer OTHER, SELFPAY | PROVIDERS: Admitting Provider Internal Medicine; Emergency Provider Emergency Medicine; PCP Internal Medicine; Visit Provider Internal Medicine | DX: R56.9 Unspecified convulsions (principal); S82.52XA Displaced fracture of medial malleolus of left tibia, initial encounter for closed fracture; S82.402A Unspecified fracture of shaft of left fibula, initial encounter for closed fracture; F11.90 Opioid use, unspecified, uncomplicated | CPT/HCPCS: 99222; 99231; 99232; 99239 ==

== ENCOUNTER 2023-08-20 09:48 | Outpatient (REF) | payer OTHER, SELFPAY ==
--- NOTE | ~2023-08-20 | XR_ITS ---
EXAMINATION: XR ANKLE, LEFT CLINICAL INFORMATION: Pain COMPARISON: Prior radiographs 07/31/2023 TECHNIQUE: AP, lateral, and mortise views of the left ankle. FINDINGS: Status post ORIF of the distal fibular and medial malleoli fractures with a fibular plate and screw fixation and surgical screw and 2 medial malleolar screws with overlying soft tissue jodie in anatomic alignment. No evidence of hardware fracture or complication. There is decreased conspicuity of the fracture lines. Joint spaces are maintained. No tibiotalar effusion. XR/XR ankle LT min 3V IMPRESSION: Status post ORIF of the distal fibular and medial malleoli fractures with a fibular plate and screw fixation and 2 medial malleolar screws with overlying soft tissue jodie in anatomic alignment. No evidence of hardware fracture or complication.
== END 2023-08-20 09:49 | disposition home or self-care (01) ==
LOC: HO.HOSX 09:48
PROVIDERS: Visit Provider Physician Assistant
DX: S82.52XD Displaced fracture of medial malleolus of left tibia, subsequent encounter for closed fracture with routine healing (principal)
CPT/HCPCS: 29515; 73610; 99212

== ENCOUNTER 2023-08-20 10:57 | Outpatient (AMB) | payer OTHER, SELFPAY ==
--- NOTE | 2023-08-20 08:33 | A.OFFVIS_ITS ---
Intake Intake Visit Reasons: PO LT ankle ORIF 08/05/23 NE Intake Note: Chi a 48 year old female presents today for a post operative left ankle ORIF on 08/05/23 NE. Patient reports --. Allergies amoxicillin [AMOXICILLIN] Allergy (Intermediate, Verified 07/31/23 09:33) RASH Penicillins [PENICILLINS] Allergy (Intermediate, Verified 07/31/23 09:33) RASH Narcotics Adverse Reaction (Severe, Uncoded 06/16/23 08:33) Itching Medication List - Last Reconciled 08/20/23 by Burt Cruz PA-C albuterol sulfate 90 mcg/actuation 2 puffs inhalation Q4-6H PRN diclofenac sodium 1% 1 g topical DAILY PRN divalproex 250 mg PO BEDTIME divalproex 500 mg PO BID hydroxyzine HCl 25 mg PO BID PRN ibuprofen 800 mg PO TID PRN indomethacin 50 mg PO BID levetiracetam 500 mg PO BID methadone (Methadone Intensol) 120 mg PO DAILY methadone (Methadose) 30 mg (3 mL) PO BEDTIME mometasone-formoterol 100-5 mcg/actuation (Dulera) 2 puffs inhalation BID nebulizer and compressor (PureAir Mini Nebulizer) As directed ondansetron 4 mg PO DAILY PRN ondansetron 4 mg translingual Q6H PRN oxycodone 10 mg (2 x 5 mg) PO Q4H PRN oxycodone ER (OxyContin) 10 mg PO BID polyethylene glycol 3350 17 grams PO DAILY trazodone 50 - 100 mg PO BEDTIME HPI PO LT ankle ORIF 08/05/23 NE HPI Details 48-year-old female presents to the [facility] today status post left ankle ORIF with Dr. Vazquez on 08/05/2023. She is being discharged from rehab and going home. She states that she has not been able to elevate her leg as much as she would like in rehab which has caused some minor swelling. Her pain is tolerable she states she has been decreased on her methadone. [facility] Medical History Clavicle fracture Narcotic abuse Seizures Asthma COPD (chronic obstructive pulmonary disease) Surgical History H/O right knee surgery H/O left knee surgery Social History Household Members: Family Housing: House Do you presently have visiting nurse or other home services: No Alcohol intake: unknown Patient Tobacco Use Status: Current someday Tobacco user Tobacco use type: Smokeless Tobacco Second Hand Smoke Exposure: No Substance Use Type: Crack/Cocaine and Opiates Advance Directives Date on File: 07/31/23 service: No Review of Systems Const All systems reviewed & are unremarkable except as noted in HPI and below Physical Exam Extrem Other: Right ankle is normal to inspection incision is clean dry and intact jodie intact. There is diffuse swelling throughout the foot. Neurovascularly intact. Office Procedures Casting/Splints [id number] Leg splint application Procedure code (CPT) selection complete Results Reviewed Results Reviewed: Brief Operative Note Date of Service: 08/04/23 Pre-op diagnosis: left bimalleolar ankle fracture Post-op diagnosis: same Procedure: ORIF lateral mal ORIF medial mal Implants: Avelino Surgeon: Coy Vazquez MD X-rays of the right ankle obtained in the office today show intact orthopedic hardware ankle mortise intact Assessment & Plan Assessment & Plan (1) Fracture of medial malleolus, left, closed: Code(s): S82.52XA - Displaced fracture of medial malleolus of left tibia, initial encounter for closed fracture Qualifiers: Encounter type: subsequent encounter Fracture alignment: displaced Fracture healing: with routine healing Qualified Code(s): S82.52XD - Displaced fracture of medial malleolus of left tibia, subsequent encounter for closed fracture with routine healing Plan [place] will remain intact for another week as the skin does appear to be a bit swollen and I would like for this to heal 1 more week before removing. I stressed the importance of strict elevation above heart level to help reduce the swelling. She was placed in another posterior splint in 90 degrees and she will remain nonweightbearing. She was given a refill of oxycodone 10 mg every 6 hours. She will see me back in 1 week with splint off and staple removal and the plan is to transition her to a short-leg cast and continue nonweightbearing for an additional 3 weeks. Orders: Orders XR ankle LT min 3V Today M25.572 - Pain in left ankle and joints of left foot Coding Level of Care Code Global (30124) Diagnoses Closed displaced fracture of medial malleolus of left tibia with routine healing, subsequent encounter S82.52XD Encounter type: subsequent encounter Fracture alignment: displaced Fracture healing: with routine healing CPT Codes Splint - CPT: 19263-Xpriu Leg splint application ([id number])
== END 2023-08-20 11:58 | disposition home or self-care (01) ==
PROVIDERS: PCP Internal Medicine; Visit Provider Physician Assistant
DX: S82.52XD Displaced fracture of medial malleolus of left tibia, subsequent encounter for closed fracture with routine healing (principal)
CPT/HCPCS: 29515; 99024

== ENCOUNTER 2023-08-27 11:36 | Inpatient (IN) | payer OTHER, SELFPAY ==
[2023-08-27] VITALS (10 sets, daily range): BP systolic 77–113; BP diastolic 39–68; PULSE 57–103; RESP 14–18; TEMP 36.6–36.7; O2SAT 88–96; BMI 32.8
--- NOTE | 2023-08-27 | EEG_ITS ---
This is a 16 channel EEG with an EKG lead. The patient is reported restless and drowsy during the tracing. Background EEG rhythm is medium amplitude, mixed theta, delta with no obvious asymmetry or paroxysmal tendency. Rare triphasic waves were noted. Photic stimulation does not produce any photic stimulation, did not produce any significant abnormality. Hyperventilation was not performed. Cardiac lead did not reveal any significant abnormality. IMPRESSION: Generalized slowing suggestive of metabolic toxic encephalopathy. MD TOSHA Kemp/SCOTT / [id number]
--- NOTE | ~2023-08-27 | NM_ITS ---
PULMONARY PERFUSION ONLY STUDY: CLINICAL INDICATION: Dizziness. Elevated d-dimer. Elevated creatinine and BUN. History of COPD, asthma. PROCEDURE: Following the intravenous administration of 4.0 millicuries technetium 99m MAA, images of the chest were obtained in multiple projections using a gamma scintiphotographic camera. COMPARISON: Chest radiograph done earlier today. PERFUSION IMAGES: No segmental perfusion defects or other perfusion abnormalities are noted. The chest radiograph shows bilateral clear lung lanier. NM/NM pul perfusion IMPRESSION: Based on perfusion only modified PIOPED 2 criteria, pulmonary thromboembolism is absent.
--- NOTE | ~2023-08-27 | CT_ITS ---
EXAMINATION: CT HEAD WITHOUT CONTRAST CLINICAL INFORMATION: Dizziness. COMPARISON: 07/31/2023 TECHNIQUE: Contiguous axial imaging was performed from the skull base to vertex without intravenous administration of contrast. This CT examination was performed using dose optimization techniques as appropriate, variously including the following: *Automated exposure control *Adjustment of mA and/or kV according to patient size (this includes techniques or standardized protocols for targeted exams where dose is matched to indication/reason for exam; i.e. extremities or head) *Use of iterative reconstruction technique DLP: 641 mGy-cm FINDINGS: There is no evidence of acute intracranial hemorrhage or large evolving territorial infarction. Ramirez to white matter differentiation is preserved. No mass effect or midline shift is seen. No extra-axial fluid collections are identified. No hydrocephalus. The cerebellar tonsils are well positioned. The calvarium is intact. Visualized portions of the orbits are unremarkable. The mastoid air cells and visualized portions of the paranasal sinuses are well aerated. CT/CT head/brain wo IV con IMPRESSION: No acute intracranial pathology.
--- NOTE | ~2023-08-27 | CT_ITS ---
EXAMINATION: CT CHEST WITHOUT CONTRAST CLINICAL INFORMATION: Aspiration pneumonia. COMPARISON: Chest radiograph 08/27/2023. CTA chest 06/16/2023. TECHNIQUE: Multidetector volumetric CT imaging of the chest was done. Axial MIP volume rendering provided. Sagittal and coronal reformatted images were obtained. This CT examination was performed using dose optimization techniques as appropriate, variously including the following: *Automated exposure control *Adjustment of mA and/or kV according to patient size (this includes techniques or standardized protocols for targeted exams where dose is matched to indication/reason for exam; i.e. extremities or head) *Use of iterative reconstruction technique DLP: 302 mGy-cm FINDINGS: LUNGS: Low lung volumes with bibasilar subsegmental atelectasis. Scattered mild bronchial wall thickening with mosaic attenuation of the lung parenchyma. Mild paraseptal emphysema. No consolidation or significant groundglass disease. Central airways are patent. MEDIASTINUM: Normal heart size. No pericardial effusion. No mediastinal lymphadenopathy. Normal appearance of the thyroid gland. CORONARY ARTERY CALCIFICATION: None visualized on this study. PLEURA: No pleural effusion or pneumothorax. AXILLA: No lymphadenopathy. UPPER ABDOMEN: Cholecystectomy. OSSEOUS STRUCTURES: No acute or aggressive appearing osseous findings. CT/CT chest wo IV con IMPRESSION: 1. Mild bronchial wall thickening and mosaic attenuation of the lung parenchyma suggesting small airways disease. 2. Low lung volumes with bibasilar subsegmental atelectasis. 3. Mild paraseptal emphysema.
--- NOTE | ~2023-08-27 | XR_ITS ---
EXAMINATION: XR CHEST CLINICAL INFORMATION: Dizziness. COMPARISON: 06/16/2023 TECHNIQUE: Frontal view of the chest was obtained. FINDINGS: The lungs are moderately expanded. No focal consolidation. No pleural effusion. Cardiac silhouette is unchanged. XR/XR chest 1V IMPRESSION: No acute abnormality.
--- NOTE | ~2023-08-27 | US_ITS ---
EXAMINATION: US VENOUS ULTRASOUND WITH DOPPLER LOWER EXTREMITY, BILATERAL CLINICAL INFORMATION: Swelling, pain, elevated d-dimer. COMPARISON: None available. TECHNIQUE: Ultrasound of the deep veins is performed from the hip to the calf with compression sonography and color and pulse Doppler assessment. Spectral analysis with color-flow imaging is performed. FINDINGS: RIGHT: There is normal venous compression and respiratory variation and augmented flow. The visualized common femoral vein, superficial femoral vein, profunda femoral vein, popliteal vein, and the trifurcation region shows no evidence of deep venous thrombosis. There is no significant popliteal fossa cyst. LEFT: There is normal venous compression and respiratory variation and augmented flow. The visualized common femoral vein, superficial femoral vein, profunda femoral vein, popliteal vein, and the trifurcation region shows no evidence of deep venous thrombosis. There is no significant popliteal fossa cyst. If the patient's symptoms persist, followup ultrasound in 5 days 7 days might be of value to exclude proximal propagation from a non-visualized calf vein. US/US venous duplex LE BI IMPRESSION: No DVT demonstrated in the bilateral lower extremities.
--- NOTE | 2023-08-27 11:54 | PC.NURSE ---
pt presents to ED from home via EMS for seizure. pt is awake, alert and slightly confused, reports she feels fuzzy and not right . breathing even and unlabored, skin dry but pale. pt reports full body seizure at 9AM this morning, unwitnessed. pt has hx of seizures, takes Keppra 500 mg daily and has been med compliant. last seizure 1 month ago where she fell and fx her left foot (cast currently on). pt reports generalized body pain, 9/10 that is baseline for her. pt also reports dizziness and feeling generally unwell. pt denies fevers, cough, N/V/D.
--- NOTE | 2023-08-27 11:57 | PC.NURSE ---
pt appears postictal, slow to answer questions. seizure pads in place. pt placed on bedside cardiac nurse, NSR. RA SPO2 noted to be 88-90%, placed on 3L O2 via NC with some improvement.
--- NOTE | 2023-08-27 12:05 | ECG_ITS ---
Test Reason : DIZZINESS Blood Pressure : / mmHG Vent. Rate : 067 BPM Atrial Rate : 067 BPM P-R Int : 156 ms QRS Dur : 086 ms QT Int : 390 ms P-R-T Axes : 064 032 056 degrees QTc Int : 412 ms Normal sinus rhythm with sinus arrhythmia Nonspecific T wave abnormality Abnormal ECG When compared with ECG of 31-JUL-2023 09:57, No significant change was found Referred By: Angela John Electronically Signed By:Kael Tristan
--- NOTE | 2023-08-27 12:05 | ED_ITS ---
HPI - General Adult General Chief complaint: Seizure Stated complaint: DIZZINESS,SEIZURE @900 PER EMS Time Seen by Provider: 08/27/23 12:04 Source: patient and EMS Mode of arrival: EMS Limitations: no limitations History of Present Illness HPI narrative: Patient is a 48 year old assigned female at with a history of seizure disorder, asthma, opiate use disorder, and recent L ankle surgery presenting to the emergency department today with dizziness, seizure, and feeling generally unwell. Patient states that since last night she has felt generally unwell and had a seizure this morning. Patient states that she is taking keppra as she is supposed to and she is supposed to follow up with the orthopedic office today to have her jodie removed]. Patient denies any lightheadedness, abdominal pain, nausea, vomiting, fever, chills, blurry vision, double vision, loss of vision, chest pain, difficulty breathing, shortness of breath, back pain, night sweats, pain with urination, increased urinary frequency, increased urinary urgency, blood in her urine or stool, syncope or a near syncopal episode, recent trauma or falls, bowel incontinence, bladder incontinence, bowel retention, bladder retention, or any other complaints at this time. Onset (ago): day(s) (1) Severity: mild Relieving factors: none Exacerbating factors: none Associated symptoms: seizure Treatments prior to arrival: none Related Data Home Medications Medication Instructions Recorded Confirmed albuterol sulfate 90 mcg/actuation 2 puff inhalation Q4-6H PRN 07/31/23 08/20/23 aerosol inhaler Shortness Of Breath Or Wheezing diclofenac sodium 1 % topical gel 1 g topical DAILY PRN Pain 07/31/23 08/20/23 divalproex 250 mg tablet,delayed 250 mg PO BEDTIME 07/31/23 08/20/23 release divalproex 500 mg tablet,delayed 500 mg PO BID 07/31/23 08/20/23 release hydroxyzine HCl 25 mg tablet 25 mg PO BID PRN Anxiety 07/31/23 08/20/23 indomethacin 50 mg capsule 50 mg PO BID 07/31/23 08/20/23 methadone 10 mg/mL oral 120 mg PO DAILY 07/31/23 08/20/23 concentrate (Methadone Intensol) mometasone-formoterol HFA 100 2 puff inhalation BID 07/31/23 08/20/23 mcg-5 mcg/actuation aerosol inhaler (Dulera) ondansetron 4 mg disintegrating 4 mg PO DAILY PRN Nausea 07/31/23 08/20/23 tablet trazodone 50 mg tablet 50 - 100 mg PO BEDTIME 07/31/23 08/20/23 Previous Rx's Medication Instructions Recorded nebulizer and compressor (PureAir #1 ea 04/09/21 Mini Nebulizer) ibuprofen 800 mg tablet 800 mg PO TID PRN for pain #90 tabs 12/24/22 levetiracetam 500 mg tablet 500 mg PO BID #1 tab 08/12/23 methadone 10 mg/mL oral 30 mg (3 mL) PO BEDTIME #1 mL 08/12/23 concentrate (Methadose) ondansetron 4 mg disintegrating 4 mg translingual Q6H PRN Nausea 08/12/23 tablet And Vomiting #1 tab oxycodone 10 mg tablet,crush 10 mg PO BID #14 tabs 08/12/23 resistant,extended release 12 hr (OxyContin) polyethylene glycol 3350 17 gram 17 g PO DAILY #1 ea 08/12/23 oral powder packet oxycodone 5 mg tablet 10 mg (2 x 5 mg) PO Q6H PRN Pain, 08/20/23 Moderate(Pain Scale 4-6) #56 tabs Allergies Allergy/AdvReac Type Severity Reaction Status Date / Time amoxicillin [AMOXICILLIN] Allergy Intermediate RASH Verified 07/31/23 09:33 Penicillins [PENICILLINS] Allergy Intermediate RASH Verified 07/31/23 09:33 Review of Systems 2 Constitutional: Constitutional: Reports no additional constitutional complaints, Denies chills, Denies fever(s) and Denies night sweats Eyes: Eyes: Reports no additional eye complaints, Denies blurry vision, Denies change in vision, Denies diplopia, Denies eye discharge, Denies loss of vision and Denies eye pain ENT: Reports dizziness Cardiovascular: Cardiovascular: Reports no additional cardiovascular complaints, Denies chest pain, Denies lightheadedness, Denies Loss of Consciousness and Denies dyspnea Respiratory: Respiratory: Reports no additional respiratory complaints and Denies dyspnea Gastrointestinal: Gastrointestinal: Reports no additional gastrointestinal complaints, Denies abdominal pain, Denies melena, Denies hematochezia, Denies change in bowel habits and Denies change in stool character Genitourinary: Genitourinary: Denies hematuria, Denies urinary frequency, Denies dysuria, Denies urinary incontinence, Denies urinary hesitancy and Denies urinary urgency Musculoskeletal: Musculoskeletal: Reports no additional musculoskeletal complaints, Denies numbness and Denies tingling Neurologic: Reports dizziness, Denies loss of vision, Denies numbness, Reports seizure-like activity and Denies tingling Psychiatric: Psychiatric: Reports no additional psychiatric complaints Endocrine: Endocrine: Reports no additional endocrine complaints Hematologic/Lymphatic: Hematologic/Lymphatic: Reports no additional hematologic/lymphatic complaints Allergic/Immunologic: Allergic/Immunologic: Reports no additional allergic/immunologic complaints [facility] Past Medical History Attestation statement: The following information was validated with the patient. Source: old records reviewed and nursing notes reviewed Medical History Clavicle fracture Narcotic abuse Seizures Asthma COPD (chronic obstructive pulmonary disease) Surgical History H/O right knee surgery H/O left knee surgery Social History Social History Household Members: Family Housing: House Do you presently have visiting nurse or other home services: No Alcohol intake: unknown Patient Tobacco Use Status: Current someday Tobacco user Tobacco use type: Smokeless Tobacco Smoked in Last 30 Days: No Second Hand Smoke Exposure: No Use of substances other than those prescribed or required for medical reasons: No Substance Use Type: Crack/Cocaine and Opiates Advance Directives: Yes Advance Directives on File: Yes Advance Directives Date on File: 07/31/23 service: No Physical Exam ED Vital Signs: Vital Signs - 24 hr 08/27/23 11:45 08/27/23 11:50 08/27/23 14:00 Temperature 98.1 F 98.1 F Pulse Rate 103 H 80 65 Respiratory Rate 18 18 14 Blood Pressure 96/61 96/61 84/39 L Pulse Oximetry 88 L 90 L 92 Oxygen Delivery Method Room Air Nasal Cannula Nasal Cannula Oxygen Flow Rate 2 4 08/27/23 14:19 Temperature Pulse Rate 62 Respiratory Rate 14 Blood Pressure 77/47 L Pulse Oximetry 94 Oxygen Delivery Method Nasal Cannula Oxygen Flow Rate BMI result Body Mass Index 32.8 Const General: cooperative, no acute distress, alert and awake Nutritional Appearance: well nourished Orientation/consciousness: patient oriented x3 Limitations: no limitations HENMT Head: Yes normal to inspection and Yes atraumatic Ears: hearing grossly normal bilaterally and external ears normal General nose exam: Normal external nose present, no nasal discharge noted and no epistaxis Face and sinus: Yes normal facial exam, No abrasion and No laceration Mouth: Normal oral and palatal mucosa present, no drooling and no muffled voice Eyes General: appearance normal, both eyes and all related structures Periorbital: periorbital findings normal Eyelids: Yes eyelids normal Conjunctivae: conjunctivae normal Pupils: Equal, round and reactive pupils present EOM: EOMs intact bilaterally Neck Neck: Yes normal visual inspection, Yes full ROM and Yes no lymphadenopathy Chest Chest palpation & inspection: normal inspection of the chest Resp Effort & Inspection: normal respiratory effort and able to speak in complete sentences Auscultation: clear to auscultation bilaterally Cardio Rate: regular rate Rhythm: regular rhythm GI Inspection: Yes normal to inspection Neuro General: patient oriented x3 and moves all extremities Cranial nerves: Yes Equal, round and reactive pupils present Cognition (Neuro): normal cognition Motor exam (neuro): 5/5 motor strength present throughout Sensory Exam: Normal double simultaneous stimulation for sensation Coordination: [id number] test normal Extrem Other: General: Yes full ROM and Yes capillary refill normal Psych Appearance: grossly normal Mental Status: mental status grossly normal Affect: normal affect Attitude: cooperative Thought process: Normal thought process present Thought content: Normal thought content present Insight: Good insight present (Psych) Medications Administered Discontinued Medications Generic Name Dose Route Start Last Admin Trade Name Job PRN Reason Stop Dose Admin Sodium Chloride 1,000 mls @ 999 mls/hr 08/27/23 12:15 08/27/23 13:58 Ns IV 08/27/23 13:15 Infused .Q1H1M MELISSA Infusion Sodium Chloride 1,000 mls @ 999 mls/hr 08/27/23 12:30 08/27/23 13:58 Ns IV 08/27/23 13:30 999 mls/hr .Q1H1M MELISSA Administration Oxycodone HCl 10 mg 08/27/23 15:02 08/27/23 15:16 Oxycodone Hcl Immed Release 5 Mg Tablet PO 08/27/23 15:03 10 mg ONCE ONE Administration Medical Decision Making Medical Decision Making MDM Narrative: Patient is a 48 year old assigned female at with a history of asthma, recent L ankle surgery, and narcotic abuse presenting to the emergency department today with dizziness and feeling generally unwell. Patient's physical exam was as noted in the physical exam portion of this note Patient's blood work showed an elevated BUN of 37, CR of 1.94, and d dimer of 595. Patient's urine is pending. Patient's EKG was unremarkable. Patient's chest x-ray showed no acute process. I explained my physical exam findings as well as all test results to the patient. I answered all questions asked by the patient. The patient has had multiple episodes of hypotension while in the department. Patient given IV fluids which seems to have improved this. Patient has also been consistently hypoxic. This coupled with the elevated d dimer and recent surgery is concerning for PE. Patient cannot have CT PE done due to CR of 1.94. VQ scan has been ordered. Due to the elevated d dimer, the patient's bilateral lower legs will also need US. When US is completed, the patient's left lower leg will need to be redressed and re-splinted, per orthopedics. Orthopedics states they will follow the case while the patient is admitted. Patient was given IV ceftriaxone. Patient's clinical presentation is supsicious for sepsis (@ 1500). Patient will be signed out to the evening GAEL pending VQ scan and US results. Patient will be eventually be admitted. Differential Diagnosis Differential Diagnoses: The differential diagnosis associated with the presentation includes Kidney injury Dehydration Hypotension DVT PE Hypoxia Admission/Observation Consideration of admission/observation: Escalation of care including admission/observation considered Patient will be admitted after imaging is completed and resulted. Consult Healthcare Provider Management of the patient was discussed with: Parts Room Assistant (consulted with orthopedics as noted in the MDM Rationale portion of this note.) Lab Data [facility] Lab Attestation statement: I reviewed the patient's lab results. My interpretation of these results are in the MDM Rationale portion of this note. 08/27/23 12:21 08/27/23 12:21 Labs: Lab Results 08/27/23 Range/Units 12:21 WBC 4.4 L (4.8-10.8) X10*3/uL RBC 4.70 (4.20-5.50) X10*6/uL Hgb 13.0 D (12.0-16.0) g/dl Hct 39.5 D (37.0-47.0) % MCV 84.0 (80.0-98.0) fL MCH 27.7 (27.0-33.0) pg MCHC 32.9 (31.0-35.0) g/dl RDW 13.6 (11.0-16.0) % Plt Count 149 L (160-400) X10*3/uL MPV 9.7 (9.4-12.3) fL Immature Gran % (Auto) 0.2 (0.0-0.4) % Neut % (Auto) 53.2 (45-73) % Lymph % (Auto) 37.4 (20-40) % [place] % (Auto) 6.3 (2-11) % Eos % (Auto) 2.7 (0-4) % Baso % (Auto) 0.2 (0-2) % Lymph # (Auto) 1.7 (1.2-4.9) X10*3/uL [place] # (Auto) 0.3 (0.1-1.2) X10*3/uL Eos # (Auto) 0.1 (0.0-0.4) X10*3/uL Baso # (Auto) 0.0 (0.0-0.2) X10*3/uL Abs Immat Gran (auto) 0.01 (0.00-0.03) X10*3/uL Absolute Neuts (auto) 2.3 (2.0-8.3) x10*3/uL Absolute Nucleated RBC 0.000 (0.0-0.012) X10*3/uL Nucleated RBC % (auto) 0.0 (0.0-0.2) /100WBC D-Dimer High Sensitivty 595 NG/ML Sodium 140 (135-145) mmol/L Potassium 5.0 (3.3-5.1) mmol/L Chloride 103 (96-108) mmol/L Carbon Dioxide 29 (22-29) mmol/L Anion Gap 13 (12-20) BUN 37 H (9-16) mg/dL Creatinine 1.94 H (0.5-1.4) mg/dL Estim Creat Clear Calc 43.4 Estimated GFR 28 Random Glucose 100 (60-115) mg/dL Calcium 10.0 D (8.4-10.2) mg/dL Magnesium 2.0 (1.6-2.6) mg/dL Total Bilirubin 0.3 (0.0-1.0) mg/dL AST 17 (5-31) U/L ALT 9 (0-31) U/L Alkaline Phosphatase 61 (39-117) U/L Total Creatine Kinase 20 L (26-140) U/L Troponin I High Sens < 2.7 (<3.5-17.0) ng/L Total Protein 7.1 (6.5-8.0) g/dL Albumin 3.7 (3.5-5.0) g/dL Beta HCG, Quant < 2 mIU/mL Hold Red Top See Note Influenza Type A (PCR) NEGATIVE (Negative) Influenza Type B (PCR) NEGATIVE (Negative) RSV RNA Qual (PCR) NEGATIVE (Negative) SARS-CoV-2 RNA (RT-PCR) NEGATIVE (Negative) Independent Interpretation I performed an independent interpretation of an: EKG and Plain X-Ray Interpretation: My interpretation is in agreement with the radiologist's impression of these imaging studies. - EXAMINATION: CT HEAD WITHOUT CONTRAST CLINICAL INFORMATION: Dizziness. COMPARISON: 07/31/2023 TECHNIQUE: Contiguous axial imaging was performed from the skull base to vertex without intravenous administration of contrast. This CT examination was performed using dose optimization techniques as appropriate, variously including the following: *Automated exposure control *Adjustment of mA and/or kV according to patient size (this includes techniques or standardized protocols for targeted exams where dose is matched to indication/reason for exam; i.e. extremities or head) *Use of iterative reconstruction technique DLP: 641 mGy-cm FINDINGS: There is no evidence of acute intracranial hemorrhage or large evolving territorial infarction. Ramirez to white matter differentiation is preserved. No mass effect or midline shift is seen. No extra-axial fluid collections are identified. No hydrocephalus. The cerebellar tonsils are well positioned. The calvarium is intact. Visualized portions of the orbits are unremarkable. The mastoid air cells and visualized portions of the paranasal sinuses are well aerated. CT/CT head/brain wo IV con IMPRESSION: No acute intracranial pathology. Dictated By: Marii Neal MD Signed By: Electronically signed by Marii Neal MD 08/27/23 1359 - EXAMINATION: XR CHEST CLINICAL INFORMATION: Dizziness. COMPARISON: 06/16/2023 TECHNIQUE: Frontal view of the chest was obtained. FINDINGS: The lungs are moderately expanded. No focal consolidation. No pleural effusion. Cardiac silhouette is unchanged. XR/XR chest 1V IMPRESSION: No acute abnormality. Dictated By: Marii Neal MD Signed By: Electronically signed by Marii Neal MD 08/27/23 1320 - Vent. Rate: 067 BPM Atrial Rate: 067 BPM P-R Int: 156 ms QRS Dur: 086 ms QT Int: 390 ms P-R-T Axes: 064 032 056 degrees QTc Int: 412 ms Normal sinus rhythm with sinus arrhythmia Nonspecific T wave abnormality Abnormal ECG When compared with ECG of 31-JUL-2023 09:57, No significant change was found DD/ 1234 Radiology Impression Discussion of test interpretation with radiology: I have reviewed the radiologist's reading. Independent Historian Clinical information obtained from an independent historian. History obtained from or confirmed by: EMS (EMS provided additional history and confirmed the history provided by the patient.) Critical Care Time Critical Care Time Critical Care Time: Yes Total Critical Care Time: 55 Attestation: I spent 55 minutes of Critical Care Time with this patient. This does not include time spent on separately reported billable procedures. Discharge Plan Discharge Clinical Impression: Hypoxia, ABDIRAHMAN (acute kidney injury) Patient Disposition: Still a Patient Prescriptions: No Action ibuprofen 800 mg tablet 800 mg PO TID PRN (Reason: for pain) Qty: 90 0RF (DME) nebulizer and compressor [PureAir Mini Nebulizer] Device See Rx Instructions .Route Qty: 1 0RF Rx Instructions: As directed divalproex 250 mg tablet,delayed release (DR/EC) 250 mg PO BEDTIME Rx Instructions: TOTAL BEDTIME DOSE OF 750MG trazodone 50 mg tablet 50 - 100 mg PO BEDTIME divalproex 500 mg tablet,delayed release (DR/EC) 500 mg PO BID indomethacin 50 mg capsule 50 mg PO BID methadone [Methadone Intensol] 10 mg/mL Concentrate 120 mg PO DAILY ondansetron 4 mg tablet,disintegrating 4 mg PO DAILY PRN (Reason: Nausea) diclofenac sodium 1 % gel 1 g topical DAILY PRN (Reason: Pain) Dulera 100-5 mcg/actuation HFA aerosol inhaler 2 puff inhalation BID hydroxyzine HCl 25 mg tablet 25 mg PO BID PRN (Reason: Anxiety) albuterol sulfate 90 mcg/actuation HFA aerosol inhaler 2 puff inhalation Q4-6H PRN (Reason: Shortness Of Breath Or Wheezing) polyethylene glycol 3350 17 gram Powder In Packet 17 g PO DAILY Qty: 1 0RF levetiracetam 500 mg Tablet 500 mg PO BID Qty: 1 0RF methadone [Methadose] 10 mg/mL Concentrate 30 mg PO BEDTIME Qty: 1 0RF Rx Instructions: Partial Fill upon patient request. ondansetron 4 mg Tablet,Disintegrating 4 mg translingual Q6H PRN (Reason: Nausea And Vomiting) Qty: 1 0RF oxycodone [OxyContin] 10 mg Tablet,Oral Only,Ext.Rel.12 Hr 10 mg PO BID Qty: 14 0RF Rx Instructions: Partial Fill upon patient request. oxycodone 5 mg tablet 10 mg PO Q6H PRN (Reason: Pain, Moderate(Pain Scale 4-6)) Qty: 56 0RF Rx Instructions: Partial Fill upon patient request.
[2023-08-27] MEDS: 0.9 % Sodium Chloride 1,000 ML 999 ML IV ×3 (12:22→15:43)
[2023-08-27 12:25] LABS: MANUAL DIFF FLAG NO
[2023-08-27 12:30] LABS: Basophils Percent Auto 0.2 % (0-2); Eosinophils Absolute Auto 0.1 X10*3/uL (0.0-0.4); Eosinophils Percent Auto 2.7 % (0-4); Hematocrit 39.5 % (37.0-47.0); Imm Gran Abs Auto 0.01 X10*3/uL (0.00-0.03); Imm Gran Pct Auto 0.2 % (0.0-0.4); Lymphocytes Absolute Auto 1.7 X10*3/uL (1.2-4.9); Lymphocytes Percent Auto 37.4 % (20-40); Mean Corpuscular HGB Conc 32.9 g/dl (31.0-35.0); Mean Corpuscular Hemoglobin 27.7 pg (27.0-33.0); Mean Platelet Volume 9.7 fL (9.4-12.3); Monocytes Absolute Auto 0.3 X10*3/uL (0.1-1.2); Monocytes Percent Auto 6.3 % (2-11); Neutrophils Absolute Auto 2.3 x10*3/uL (2.0-8.3); Neutrophils Percent Auto 53.2 % (45-73); Platelet Count 149 X10*3/uL (160-400); Red Cell Distribution Width 13.6 % (11.0-16.0); White Blood Count 4.4 X10*3/uL (4.8-10.8)
[2023-08-27 12:39] LABS: D Dimer High Sensitivity 595 NG/ML
[2023-08-27 12:55] LABS: Alanine Aminotransferase 9 U/L (0-31); Albumin Level 3.7 g/dL (3.5-5.0); Alkaline Phosphatase 61 U/L (39-117); Anion Gap 13 (12-20); Aspartate Amino Transferase 17 U/L (5-31); Bilirubin Total 0.3 mg/dL (0.0-1.0); Blood Urea Nitrogen 37 mg/dL (9-16); Carbon Dioxide 29 mmol/L (22-29); Chloride 103 mmol/L (96-108); Creatinine Clr Calc Pharmacy 43.4; Estimated Glomerular Filt Rate 28; Glucose Random 100 mg/dL (60-115); HCG Quantitative < 2 mIU/mL; Sodium 140 mmol/L (135-145); Total Protein 7.1 g/dL (6.5-8.0); Troponin-I High Sensitivity < 2.7 ng/L (<3.5-17.0)
[2023-08-27 13:17] LABS: Influenza A PCR NEGATIVE (Negative); Influenza B PCR NEGATIVE (Negative); Resp Syncy Virus RNA Qual PCR NEGATIVE (Negative); SARS COV2 PCR INHOUSE NEGATIVE (Negative)
--- NOTE | 2023-08-27 14:01 | PC.NURSE ---
pt resting in bed, noted to be hypotensive, provider aware. pt reports pain in left foot where old fx is, 03/22 which has been consistent
[2023-08-27] MEDS: oxyCODONE HCl Immed Release 5 MG TABLET 10 MG PO ×2 (15:16→22:43)
[2023-08-27] MEDS: cefTRIAXone sodium 1 GM in 0.9 % Sodium Chloride 50 ML IV (15:55)
[2023-08-27 15:58] LABS: Appearance Urine Clear; Color Urine Yellow; Glucose Urine UA Negative (Negative); Leukocyte Esterase Urine Trace (Negative); Nitrite Urine Negative (Negative); Specific Gravity - Urine >= 1.030 (1.005-1.025); UMIC TRIGGER UACC YES; Urine Blood Negative (Negative); Urine Ketones Trace mg/dL (Negative); Urine Protein Negative (Neg-Trace)
--- NOTE | 2023-08-27 16:04 | PC.NURSE ---
Pts BP improved, medicated per SEP. pt taken to nuc med at this time
[2023-08-27 16:06] LABS: Amphetamine Screen Urine Not Detected (Not Detect); Bacteria Urine 2+ (None Seen); Barbiturates, Urine Not Detected (Not Detect); Benzodiazepines Screen Urine Not Detected (Not Detect); Cannabinoid Screen Urine Not Detected (Not Detect); Cocaine Screen Urine Not Detected (Not Detect); Fentanyl, urine Not Detected (Not Detect); Opiate Screen Urine POSITIVE (Not Detect); Phencyclidine Screen Urine Not Detected (Not Detect); RBC Urine 0-2 /HPF (0-2); WBC Urine 0-5 /HPF (0-5)
[2023-08-27 16:07] LABS: Lactic Acid 0.7 mmol/L (0.5-2.0)
--- NOTE | 2023-08-27 17:38 | PC.NURSE ---
Pt returned to unit from nuclear med an had leg ultrasounds completed. VSS. Pt okay to eat snacks and tolerating well.
--- NOTE | 2023-08-27 18:15 | PC.NURSE ---
Left lower leg re splinted by Abdi[facility] [employer] MANAGER, this RN in to assist
--- NOTE | 2023-08-27 19:01 | PC.NURSE ---
[place] contact [phone]
[2023-08-27 20:11] LABS: VBG HCO3 28 mmol/L (22-26); VBG pCO2 45 mmHg; VBG pH 7.39 (7.32-7.43); VBG pO2 79 mmHg
[2023-08-27 20:11] LABS: Venous Blood Gas Refer to POC result
--- NOTE | 2023-08-27 20:50 | PHA.MEDREC ---
Pharmacy Consult ? Medication Reconciliation Pharmacy has completed the medication reconciliation. Patient reported everything is the same since she was last discharge. Patient reported taking both oxycontin and oxycodone that was prescribe although there is no PDMP history for these meds. Patient reports divalopreox 500 mg daily and total dose of 750 mg at bedtime. Patient unsure about mirtazepine however it was filled on 08.17.23. Patient report no topiramate which was discontinue last time she was in the hospital. Patient gets methadone from [facility] in [place], rn will need to follow up to verify dose. Lila Zhu, JagdishD
--- NOTE | 2023-08-27 21:45 | PM.IMHP ---
History of Present Illness Date of Service: 08/27/23 <LANIE Weiner - Last Filed: 08/27/23 23:09> Attending physician on admission: Eddie Grigsby <LANIE Weiner - Last Filed: 08/27/23 23:09> Chief Complaint: Dizziness, lightheadedness, ?seizure at home <LANIE Weiner - Last Filed: 08/27/23 23:09> Pt is a 48-year-old female with a PMH significant for?seizure disorder, asthma, and hx of opioid use disorder who presents to the ED with?lightheadedness, dizziness, and possible seizure at home. Patient was recently admitted to the hospital on 07/31-08/12 for seizure activity with fall and left ankle injury. Imaging showed a left distal fibula and medial malleolus fracture that was surgically repaired by ORIF on 08/06/2023. Was discharged to SNF for short-term rehab where she states she stayed for 1 week. Since discharge patient has still been nonweightbearing on left foot, but has been able to ambulate around the house with assistance from wheelchair. Patient states that today she felt ?disoriented? started around 09:00. Reports that she believes she had a seizure, since she felt lightheaded, dizzy, and generally unwell. Noted that her blood pressure dropped. All of this she reports happens when she has seizures. States she has had 2 seizures this past month, but can go for over a year without experiencing one. Patient also reports significant pain in left ankle foot, and that she just feels generally ?unwell?. Reports being compliant with home medications and eating and drinking normally. Denies fever, chills, nausea, vomiting, abdominal pain. No chest pain/pressure, palpitations. Denies shortness of breath or pleuritic chest pain. States In the ED pt was tachycardic up to 1 3, hypoxic as low as 88% on RA, and was soft BP as low as 77/47. Labs were significant for elevated D-dimer of 595, BUN 37, and creatinine 1.97. No leukocytosis. Stable H&H. No significant electrolyte abnormalities. Lactic acid WNL at 0.7. Hepatic function WNL. Troponin negative. UA negative for UTI. CXR showed no acute abnormality. Head CT showed no acute intracranial pathology. Chest CT showed mild bronchial wall thickening and mosaic attenuation of the lung suggesting small airway disease. Pulmonary perfusion imaging negative for pulmonary thromboembolism. Venous duplex negative for DVT in bilateral lower extremities. EKG demonstrated normal sinus rhythm with sinus arrhythmia and T-wave inversions in V1, and V3. Patient was treated with 3L IVF, oxycodone, and ceftriaxone. Pt will be admitted to the hospital for treatment and further evaluation of ABDIRAHMAN and hypotension. <LANIE Weiner - Last Filed: 08/27/23 23:09> Review of Systems Review of Systems: Lightheadedness, dizziness, disorientation Left ankle and foot pain Possible seizure at home Chills Denies fever, nausea, vomiting, abdominal pain No chest pain/pressure, palpitations Denies shortness of breath, difficulty breathing, pleuritic chest pain Denies changes to bowel or bladder habits <LANIE Weiner - Last Filed: 08/27/23 23:09> [facility], [facility] Medical History: Medical History Clavicle fracture Narcotic abuse Seizures Asthma COPD (chronic obstructive pulmonary disease) <LANIE Weiner - Last Filed: 08/27/23 23:09> Surgical History: Surgical History H/O right knee surgery H/O left knee surgery <LANIE Weiner - Last Filed: 08/27/23 23:09> Social History: Social History Household Members: Family Housing: House Do you presently have visiting nurse or other home services: No Alcohol intake: unknown Patient Tobacco Use Status: Current someday Tobacco user Tobacco use type: Smokeless Tobacco Smoked in Last 30 Days: No Second Hand Smoke Exposure: No Use of substances other than those prescribed or required for medical reasons: No Substance Use Type: Crack/Cocaine and Opiates Advance Directives: Yes Advance Directives on File: Yes Advance Directives Date on File: 07/31/23 service: No <LANIE Weiner - Last Filed: 08/27/23 23:09> Meds Allergies/Adverse reactions: Allergies Allergy/AdvReac Type Severity Reaction Status Date / Time amoxicillin [AMOXICILLIN] Allergy Intermediate RASH Verified 07/31/23 09:33 Penicillins [PENICILLINS] Allergy Intermediate RASH Verified 07/31/23 09:33 <LANIE Weiner - Last Filed: 08/27/23 23:09> Active Medications: Current Medications Acetaminophen (Acetaminophen 325 Mg Tablet) 650 mg PO Q6H PRN PRN Reason: Pain, Mild (Pain Scale 1-3) Enoxaparin Sodium (Enoxaparin Sodium 40 Mg/0.4 Ml Syringe) 40 mg SUBCUT Q24H MELISSA Melatonin (Melatonin 3 Mg Tablet) 6 mg PO BEDTIME PRN PRN Reason: Insomnia Ondansetron HCl (Ondansetron Hcl 4 Mg/2 Ml Vial) 4 mg IVPUSH Q8H PRN PRN Reason: Nausea and Vomiting Sodium Chloride (0.9 % Sodium Chloride Flush 3 Ml Syringe) 3 ml IVFLUSH QSHIFT MELISSA <LANIE Weiner - Last Filed: 08/27/23 23:09> Home medications: Home Medications Medication Instructions Recorded Confirmed Last Taken Type albuterol sulfate 90 mcg/actuation 2 puff inhalation Q4-6H PRN 07/31/23 08/27/23 Unknown History aerosol inhaler Shortness Of Breath Or Wheezing divalproex 250 mg tablet,delayed 750 mg PO BEDTIME 07/31/23 08/27/23 07/30/23 History release divalproex 500 mg tablet,delayed 500 mg PO DAILY 07/31/23 08/27/23 07/30/23 History release hydroxyzine HCl 25 mg tablet 25 mg PO BID PRN Anxiety 07/31/23 08/27/23 Unknown History indomethacin 50 mg capsule 50 mg PO BID 07/31/23 08/27/23 07/31/23 History methadone 10 mg/mL oral 120 mg PO DAILY 07/31/23 08/20/23 07/31/23 History concentrate (Methadone Intensol) mometasone-formoterol HFA 100 2 puff inhalation BID 07/31/23 08/27/23 Unknown History mcg-5 mcg/actuation aerosol inhaler (Dulera) trazodone 50 mg tablet 100 mg PO BEDTIME 07/31/23 08/27/23 Unknown History mirtazapine 15 mg tablet 15 mg PO BEDTIME 08/27/23 08/27/23 Unknown History oxycodone 5 mg tablet 10 mg PO Q4H PRN Pain, 08/27/23 08/27/23 Unknown History Moderate(Pain Scale 4-6) sumatriptan succinate 50 mg tablet 50 mg PO DAILY MRX1 PRN Migraine 08/27/23 08/27/23 Unknown History Headache <LANIE Weiner - Last Filed: 08/27/23 23:09> Physical Exam Vital Signs and Narrative: Vital Signs: Last Vital Signs Temp 98.1 F 08/27/23 19:29 Pulse 60 08/27/23 19:29 Resp 16 08/27/23 19:29 BP 99/52 L 08/27/23 19:29 Pulse Ox 95 08/27/23 19:29 O2 Del Method Room Air 08/27/23 19:29 O2 Flow Rate 2 08/27/23 18:15 BMI result Body Mass Index 32.8 <LANIE Weiner - Last Filed: 08/27/23 23:09> Constitutional: Alert, in no acute distress. Mental Status: Oriented to person, place and time. Eyes: Pupils are equal, round, and reactive to light. Ear, Nose, and Throat: Oropharynx clear, mucous membranes moist. Ears and nose without deformities. Trachea midline. Respiratory: Clear to auscultation bilaterally. No wheezing, rales, or rhonchi. Cardiovascular: S1, S2 regular. No murmurs, rubs, or gallops. Gastrointestinal: Abdomen soft, non-tender, non-distended. Normal bowel sounds. Neurologic: Cranial nerves II-XII are grossly intact bilaterally. No focal neurological deficits. Moves all extremities spontaneously. Skin: Warm, dry. Musculoskeletal: No cyanosis or clubbing. Extremities: No edema. Left medial mallelous with surgical jodie in place, no clear indication of infection. As pictured below. Psychiatric: Normal mood and affect. <LANIE Weiner - Last Filed: 08/27/23 23:09> Results Labs CBC and Chem 7: 08/27/23 12:21 08/27/23 12:21 <LANIE Weiner - Last Filed: 08/27/23 23:09> Labs: Laboratory Results - last 24 hr 08/27/23 08/27/23 08/27/23 12:21 15:50 20:04 MCV 84.0 MCH 27.7 MCHC 32.9 RDW 13.6 Plt Count 149 L MPV 9.7 Immature Gran % (Auto) 0.2 Neut % (Auto) 53.2 Lymph % (Auto) 37.4 [place] % (Auto) 6.3 Eos % (Auto) 2.7 Baso % (Auto) 0.2 Lymph # (Auto) 1.7 [place] # (Auto) 0.3 Eos # (Auto) 0.1 Baso # (Auto) 0.0 Abs Immat Gran (auto) 0.01 Absolute Neuts (auto) 2.3 Absolute Nucleated RBC 0.000 Nucleated RBC % (auto) 0.0 D-Dimer High Sensitivty 595 VBG pH 7.39 VBG pCO2 45 VBG pO2 79 VBG HCO3 28 H VBG O2 Saturation 99.0 VBG Base Excess 3.0 Anion Gap 13 Estim Creat Clear Calc 43.4 Estimated GFR 28 Random Glucose 100 Lactic Acid 0.7 Calcium 10.0 D Magnesium 2.0 Total Bilirubin 0.3 AST 17 ALT 9 Alkaline Phosphatase 61 Total Creatine Kinase 20 L Troponin I High Sens < 2.7 Total Protein 7.1 Albumin 3.7 Beta HCG, Quant < 2 Hold Red Top See Note Urine Color Yellow Urine Appearance Clear Urine pH 5.0 Ur Specific [place] >= 1.030 H Urine Protein Negative Urine Glucose (UA) Negative Urine Ketones Trace Urine Blood Negative Urine Nitrite Negative Ur Leukocyte Esterase Trace H Urine RBC 0-2 Urine WBC 0-5 Ur Squamous Epith Cells 6-10 Urine Bacteria 2+ Hyaline Casts 3-5 Urine Opiates Screen POSITIVE H Urine Fentanyl Screen Not Detected Ur Barbiturates Screen Not Detected Ur Phencyclidine Scrn Not Detected Ur Amphetamines Screen Not Detected U Benzodiazepines Scrn Not Detected Urine Cocaine Screen Not Detected U Marijuana (THC) Screen Not Detected Influenza Type A (PCR) NEGATIVE Influenza Type B (PCR) NEGATIVE RSV RNA Qual (PCR) NEGATIVE SARS-CoV-2 RNA (RT-PCR) NEGATIVE <LANIE Weiner - Last Filed: 08/27/23 23:09> Imaging Radiologist's Impressions: Impressions Chest X-Ray 08/27/23 12:26 IMPRESSION: No acute abnormality. Head CT 08/27/23 13:27 IMPRESSION: No acute intracranial pathology. Pulmonary Perfusion Imaging 08/27/23 16:35 IMPRESSION: Based on perfusion only modified PIOPED 2 criteria, pulmonary thromboembolism is absent. Venous Duplex 08/27/23 17:17 IMPRESSION: No DVT demonstrated in the bilateral lower extremities. Chest CT 08/27/23 20:15 IMPRESSION: 1. Mild bronchial wall thickening and mosaic attenuation of the lung parenchyma suggesting small airways disease. 2. Low lung volumes with bibasilar subsegmental atelectasis. 3. Mild paraseptal emphysema. <LANIE Weiner - Last Filed: 08/27/23 23:09> Assessment and Plan (1) ABDIRAHMAN (acute kidney injury): Status: Acute <LANIE Weiner - Last Filed: 08/27/23 23:09> (2) Fracture of medial malleolus, left, closed: Qualifiers: Encounter type: subsequent encounter Fracture alignment: displaced Fracture healing: with routine healing Qualified Code(s): S82.52XD - Displaced fracture of medial malleolus of left tibia, subsequent encounter for closed fracture with routine healing <LANIE Weiner - Last Filed: 08/27/23 23:09> Status: Acute <LANIE Weiner - Last Filed: 08/27/23 23:09> Pt is a 48-year-old female with a PMH significant for?seizure disorder, asthma, and hx of opioid use disorder who presents to the ED with?lightheadedness, dizziness, and possible seizure at home. Patient was recently admitted to the hospital on 07/31-08/12 for seizure activity with fall and left ankle injury. Pt will be admitted to the hospital for treatment and further evaluation of ABDIRAHMAN and hypotension. ABDIRAHMAN Creatinine 1.94 time of presentation, up from 0.86 on 08/08/2023 Likely secondary to reduced p.o. intake Patient received 3L IVF in ED Follow BMP Hypotension Patient hypotensive as low as 77/47 in the ED, has been dizzy and lightheaded Patient has received 3 L IVF with good response Likely secondary to volume depletion and poor po intake Monito BP Question of seizure Patient states she felt like she had a seizure earlier this morning States has been compliant with Depakote and Keppra Will get EEG Neurology consult Seizure precautions Monitor on telemetry Left distal fibula and medial malleolus fractures S/P ORIF on 08/04/23 Was supposed to have ortho f/u appointment today Ortho consult for wound eval and staple removal Hx of opioid use disorder Continue methadone Mood disorder Continue mirtazapine Mild intermittent asthma Not in acute exacerbation Continue home inhalers Full Code Attending:?Dr. Grigsby DVT Prophylaxis: Lovenox Pt will require a hospitalization of at least two nights for treatment of?ABDIRAHMAN and hypotension. Patient will require resuscitation with IVF and close monitoring of labs. <LANIE Weiner - Last Filed: 08/27/23 23:09> Pt is a 48-year-old female with a PMH significant for?seizure disorder, asthma, and hx of opioid use disorder who presents to the ED with?lightheadedness, dizziness, and possible seizure at home. Patient was recently admitted to the hospital on 07/31-08/12 for seizure activity with fall and left ankle injury. Pt will be admitted to the hospital for treatment and further evaluation of ABDIRAHMAN and hypotension. ABDIRAHMAN Creatinine 1.94 time of presentation, up from 0.86 on 08/08/2023 Likely secondary to reduced p.o. intake Patient received 3L IVF in ED Follow BMP Hypotension and orthostatic presyncope Patient hypotensive as low as 77/47 in the ED, has been dizzy and lightheaded Patient has received 3 L IVF with good response Likely secondary to volume depletion and poor po intake Monito BP Question of seizure Patient states she felt like she had a seizure earlier this morning States has been compliant with Depakote and Keppra Will get EEG Neurology consult Seizure precautions Monitor on telemetry Left distal fibula and medial malleolus fractures S/P ORIF on 08/04/23 Was supposed to have ortho f/u appointment today Ortho consult for wound eval and staple removal Hx of opioid use disorder Continue methadone Mood disorder Continue mirtazapine Mild intermittent asthma Not in acute exacerbation Continue home inhalers Full Code Attending:?Dr. Grigsby DVT Prophylaxis: Lovenox Pt will require a hospitalization of at least two nights for treatment of?ABDIRAHMAN and hypotension. Patient will require resuscitation with IVF and close monitoring of labs. <Eddie Grigsby MD - Last Filed: 08/27/23 23:11> Quality Stroke Does the patient have a stroke diagnosis?: No <LANIE Weiner - Last Filed: 08/27/23 23:09> VTE Prior VTE?: No <LANIE Weiner - Last Filed: 08/27/23 23:09> VTE Risk Level:: Medical - moderate - high <LANIE Weiner - Last Filed: 08/27/23 23:09> VTE Device Contraindication: Treatment Not Indicated <LANIE Weiner - Last Filed: 08/27/23 23:09> VTE Drug Contraindication: N/A - Med Ordered <LANIE Weiner - Last Filed: 08/27/23 23:09>
--- NOTE | 2023-08-27 21:49 | PC.NURSE ---
ELPIDIO Ashraf called family members to inform them of pt being admitted.
[2023-08-27] MEDS: levETIRAcetam 500 MG TABLET PO (22:43)
[2023-08-27] MEDS: Divalproex Sodium 250 MG TABLET.DR 750 MG PO (22:43)
[2023-08-27] MEDS: 0.9 % Sodium Chloride Flush 3 ML SYRINGE IVFLUSH (22:45)
--- NOTE | 2023-08-27 22:51 | PC.NURSE ---
Patient just arrived from ED and requested pain meds for her left ankle. As soon as this RN provided Oxycodone patient stated she is tired and will not be answering any questions regarding admission and suggested we read reports to find out any information. Refused Lovenox stating she knows what it's for and she does not need it. Md Grigsby notified.
[2023-08-27] MEDS: Mirtazapine 15 MG TABLET PO (23:37)
[2023-08-27] MEDS: traZODone HCL 100 MG TABLET PO (23:37)
--- NOTE | 2023-08-28 04:09 | PC.NURSE ---
Pt seen at 2300, pt alert and oriented, flat affect, pt refused a full scale assessment, due meds given, call richey in reach.
[2023-08-28] MEDS: oxyCODONE HCl Immed Release 5 MG TABLET 10 MG PO ×4 (07:07→22:20)
[2023-08-28] MEDS: Divalproex Sodium 500 MG TABLET.DR PO (07:07)
[2023-08-28] MEDS: 0.9 % Sodium Chloride Flush 3 ML SYRINGE IVFLUSH ×3 (07:07→22:27)
[2023-08-28] MEDS: levETIRAcetam 500 MG TABLET PO ×2 (07:07→22:22)
[2023-08-28 07:09] VITALS: BP 107/57; PULSE 63; RESP 16; TEMP 36.3; O2SAT 97
--- NOTE | 2023-08-28 08:25 | HE.PHANOTE ---
RE: METHADONE DOSE Patient has split dosing of methadone (120 mg in the morning and 30 mg in the evening). has take home dosing, missed 30 mg evening dose on 08/27/23 . Last methadone dose given: 120 mg 08/21/23 in clinic dose, 120 mg 08/27/23 at home dosing PER CESIA HARDEN at [facility].
--- NOTE | 2023-08-28 09:47 | P.PNIM_ITS ---
Subjective Subjective Date of Service: 08/28/23 Interval History: tired Physical Exam 2 Vital Signs: Vital Signs: Last Vital Signs Temp 97.3 F 08/28/23 07:09 Pulse 63 08/28/23 07:09 Resp 16 08/28/23 07:09 BP 107/57 L 08/28/23 07:09 Pulse Ox 97 08/28/23 07:09 O2 Del Method Room Air 08/28/23 07:09 O2 Flow Rate 2 08/27/23 18:15 BMI result Body Mass Index 32.8 General: AO X 3, no acute distress Resp: CTA bilateral, no accessory muscles used CVS: S1,S2,RRR GI: soft, non tender, non distended Neuro: motor grossly intact, alert Psych: appropriate affect, appropriate insight Objective Data Active Medications Acetaminophen (Acetaminophen 325 Mg Tablet) 650 mg PO Q6H PRN PRN Reason: Pain, Mild (Pain Scale 1-3) Albuterol Sulfate (Albuterol Sulfate 90 Mcg 8 Gm Inhaler) 2 puff INHALE Q4H PRN PRN Reason: Shortness Of Breath Or Wheezing Divalproex Sodium (Divalproex Sodium 250 Mg Tablet.) 750 mg PO BEDTIME [facility] Divalproex Sodium (Divalproex Sodium 500 Mg Tablet.) 500 mg PO DAILY [facility] Last Admin: 08/28/23 07:07 Dose: 500 mg Documented By: LEONELA Enoxaparin Sodium (Enoxaparin Sodium 40 Mg/0.4 Ml Syringe) 40 mg SUBCUT Q24H [facility] Last Admin: 08/27/23 22:45 Dose: Not Given Documented By: JORDAN Non-Admin Reason: Patient Refused Fluticasone/Vilanterol (Fluticasone/Vilanterol 100/25 Blst.W.Dev) 1 puff INHALE RDAILY [facility] Last Admin: 08/28/23 08:30 Dose: Not Given Documented By: NORA Non-Admin Reason: Patient Refused Hydroxyzine HCl (Hydroxyzine Hcl 25 Mg Tablet) 25 mg PO BID PRN PRN Reason: Anxiety Levetiracetam (Levetiracetam 500 Mg Tablet) 500 mg PO BID [facility] Last Admin: 08/28/23 07:07 Dose: 500 mg Documented By: LEONELA Melatonin (Melatonin 3 Mg Tablet) 6 mg PO BEDTIME PRN PRN Reason: Insomnia Methadone HCl (Methadone Hcl 20 Mg/2 Ml Oral.Conc) 120 mg PO DAILY@0900 MELISSA Methadone HCl (Methadone Hcl 20 Mg/2 Ml Oral.Conc) 30 mg PO BEDTIME MELISSA Mirtazapine (Mirtazapine 15 Mg Tablet) 15 mg PO BEDTIME [facility] Last Admin: 08/27/23 23:37 Dose: 15 mg Documented By: LORRI Ondansetron HCl (Ondansetron Hcl 4 Mg/2 Ml Vial) 4 mg IVPUSH Q8H PRN PRN Reason: Nausea and Vomiting Oxycodone HCl (Oxycodone Hcl Immed Release 5 Mg Tablet) 10 mg PO Q4H PRN PRN Reason: Pain, Moderate(Pain Scale 4-6) Last Admin: 08/28/23 07:07 Dose: 10 mg Documented By: LEONELA Polyethylene Glycol (Polyethylene Glycol 3350 17 Gm Powd.Pack) 17 gm PO DAILY [facility] Last Admin: 08/28/23 07:08 Dose: Not Given Documented By: LEONELA Non-Admin Reason: Patient Refused Sodium Chloride (0.9 % Sodium Chloride Flush 3 Ml Syringe) 3 ml IVFLUSH QSHIFT [facility] Last Admin: 08/28/23 07:07 Dose: 3 ml Documented By: LEONELA Sumatriptan Succinate (Sumatriptan Succinate 50 Mg Tablet) 50 mg PO DAILY MRX1 PRN PRN Reason: Migraine Headache Trazodone HCl (Trazodone Hcl 100 Mg Tablet) 100 mg PO BEDTIME [facility] Last Admin: 08/27/23 23:37 Dose: 100 mg Documented By: LORRI Labs 08/27/23 12:21 08/27/23 12:21 Labs: Laboratory Results - last 24 hr 08/27/23 08/27/23 08/27/23 12:21 15:50 20:04 MCV 84.0 MCH 27.7 MCHC 32.9 RDW 13.6 Plt Count 149 L MPV 9.7 Immature Gran % (Auto) 0.2 Neut % (Auto) 53.2 Lymph % (Auto) 37.4 [place] % (Auto) 6.3 Eos % (Auto) 2.7 Baso % (Auto) 0.2 Lymph # (Auto) 1.7 [place] # (Auto) 0.3 Eos # (Auto) 0.1 Baso # (Auto) 0.0 Abs Immat Gran (auto) 0.01 Absolute Neuts (auto) 2.3 Absolute Nucleated RBC 0.000 Nucleated RBC % (auto) 0.0 D-Dimer High Sensitivty 595 VBG pH 7.39 VBG pCO2 45 VBG pO2 79 VBG HCO3 28 H VBG O2 Saturation 99.0 VBG Base Excess 3.0 Anion Gap 13 Estim Creat Clear Calc 43.4 Estimated GFR 28 Random Glucose 100 Lactic Acid 0.7 Calcium 10.0 D Magnesium 2.0 Total Bilirubin 0.3 AST 17 ALT 9 Alkaline Phosphatase 61 Total Creatine Kinase 20 L Troponin I High Sens < 2.7 Total Protein 7.1 Albumin 3.7 Beta HCG, Quant < 2 Hold Red Top See Note Urine Color Yellow Urine Appearance Clear Urine pH 5.0 Ur Specific [place] >= 1.030 H Urine Protein Negative Urine Glucose (UA) Negative Urine Ketones Trace Urine Blood Negative Urine Nitrite Negative Ur Leukocyte Esterase Trace H Urine RBC 0-2 Urine WBC 0-5 Ur Squamous Epith Cells 6-10 Urine Bacteria 2+ Hyaline Casts 3-5 Urine Opiates Screen POSITIVE H Urine Fentanyl Screen Not Detected Ur Barbiturates Screen Not Detected Ur Phencyclidine Scrn Not Detected Ur Amphetamines Screen Not Detected U Benzodiazepines Scrn Not Detected Urine Cocaine Screen Not Detected U Marijuana (THC) Screen Not Detected Influenza Type A (PCR) NEGATIVE Influenza Type B (PCR) NEGATIVE RSV RNA Qual (PCR) NEGATIVE SARS-CoV-2 RNA (RT-PCR) NEGATIVE Assessment and Plan (1) MARINO (acute kidney injury): Status: Acute Plan 48F PMH opiate dependence, epilepsy, asthma, recent left fibula fracture, presented with dizzyness, found to have MARINO MARINO hypovolemic, NSAIDs, hypotension given 3L isotonic fluids in ED monitor hypotension due to hypovolemia resolved possible seizure depakote, keppra follow up neuro recent left fibula fracture follow up ortho patient not interested in returing to STR opiate dependence methadone Mild intermittent asthma stable dvt prophylaxis - lovenox full code reason for continued hospitalization:monitoring marino Quality Stroke Does the patient have a stroke diagnosis?: No VTE Prior VTE?: No VTE Risk Level:: Medical - moderate - high VTE Device Contraindication: Treatment Not Indicated VTE Drug Contraindication: N/A - Med Ordered
[2023-08-28] MEDS: methADONE HCl 20 MG/2 ML ORAL.CONC 120 MG PO (09:51)
--- NOTE | 2023-08-28 12:03 | MHC.CM.PN ---
IMM DELIVERED. PATIENT IS FROM HOME W/ PARENTS. FUNCTIONALLY INDP. BUT REPORTS SHE IS STILL NWB TO LLE - RECENT ADMISSION FOR L ANKLE FX, S/P ORIF 08/06, WAS DC'D 08/12 TO [facility]. REPORTS SHE STAYED AT REHAB FOR 1 WK. NO CURRENT SERVICES OR DME. METHADONE THROUGH [facility]. PCP EVA BERGMAN MD HCP ON FILE AND VERIFIED, PATIENT'S MOTHER TU DP: GOAL IS HOME SELF CARE. MOTHER TO TRANSPORT. CM WILL CONTINUE TO FOLLOW.
--- NOTE | 2023-08-28 12:51 | PM.NEUROCN ---
History of Present Illness Data of Consult Service Date: 08/28/23 Primary Care Provider: Magen Lantigua MD [facility] Reason for consult: Encephalopathy 48 years old woman with complex neuropsychiatric history with diagnosis of bipolar disorder, polysubstance abuse, and complex partial seizure disorder. This time she was in hospital with complaints of lightheadedness and dizziness confusion and disorientation. She and her mom stated that she did well with Keppra, as far as her seizures were concerned, Review of Systems Review of Systems: No recent cold or flu-like illness PMFSH Past Medical History Medical History Clavicle fracture Narcotic abuse Seizures Asthma COPD (chronic obstructive pulmonary disease) Surgical History Surgical History H/O right knee surgery H/O left knee surgery Social History Social History Household Members: Unknown / Unable to assess Household Members Other:: pt refused to respond Housing: House Do you presently have visiting nurse or other home services: No Alcohol intake: unknown Patient Tobacco Use Status: Tobacco use Unknown Tobacco use type: Smokeless Tobacco Smoked in Last 30 Days: No Second Hand Smoke Exposure: No Use of substances other than those prescribed or required for medical reasons: Unknown Substance Use Type: Crack/Cocaine and Opiates Currently Displaying Signs/Symptoms of Drug Intoxication Withdrawal: No Advance Directives: Yes Advance Directives on File: Yes Advance Directives Date on File: 07/31/23 Nutrition Risks: No Nutritional Risk service: No Meds Allergies Allergy/AdvReac Type Severity Reaction Status Date / Time amoxicillin [AMOXICILLIN] Allergy Intermediate RASH Verified 07/31/23 09:33 Penicillins [PENICILLINS] Allergy Intermediate RASH Verified 07/31/23 09:33 Active Medications: Current Medications Acetaminophen (Acetaminophen 325 Mg Tablet) 650 mg PO Q6H PRN PRN Reason: Pain, Mild (Pain Scale 1-3) Albuterol Sulfate (Albuterol Sulfate 90 Mcg 8 Gm Inhaler) 2 puff INHALE Q4H PRN PRN Reason: Shortness Of Breath Or Wheezing Divalproex Sodium (Divalproex Sodium 250 Mg Tablet.) 750 mg PO BEDTIME [facility] Divalproex Sodium (Divalproex Sodium 500 Mg Tablet.) 500 mg PO DAILY MELISSA Last Admin: 08/28/23 07:07 Dose: 500 mg Enoxaparin Sodium (Enoxaparin Sodium 40 Mg/0.4 Ml Syringe) 40 mg SUBCUT Q24H [facility] Last Admin: 08/27/23 22:45 Dose: Not Given Fluticasone/Vilanterol (Fluticasone/Vilanterol 100/25 Blst.W.Dev) 1 puff INHALE RDAILY [facility] Last Admin: 08/28/23 08:30 Dose: Not Given Hydroxyzine HCl (Hydroxyzine Hcl 25 Mg Tablet) 25 mg PO BID PRN PRN Reason: Anxiety Levetiracetam (Levetiracetam 500 Mg Tablet) 500 mg PO BID [facility] Last Admin: 08/28/23 07:07 Dose: 500 mg Melatonin (Melatonin 3 Mg Tablet) 6 mg PO BEDTIME PRN PRN Reason: Insomnia Methadone HCl (Methadone Hcl 20 Mg/2 Ml Oral.Conc) 120 mg PO DAILY@0900 [facility] Last Admin: 08/28/23 09:51 Dose: 120 mg Methadone HCl (Methadone Hcl 20 Mg/2 Ml Oral.Conc) 30 mg PO BEDTIME [facility] Mirtazapine (Mirtazapine 15 Mg Tablet) 15 mg PO BEDTIME [facility] Last Admin: 08/27/23 23:37 Dose: 15 mg Ondansetron HCl (Ondansetron Hcl 4 Mg/2 Ml Vial) 4 mg IVPUSH Q8H PRN PRN Reason: Nausea and Vomiting Oxycodone HCl (Oxycodone Hcl Immed Release 5 Mg Tablet) 10 mg PO Q4H PRN PRN Reason: Pain, Moderate(Pain Scale 4-6) Last Admin: 08/28/23 10:52 Dose: 10 mg Polyethylene Glycol (Polyethylene Glycol 3350 17 Gm Powd.Pack) 17 gm PO DAILY [facility] Last Admin: 08/28/23 07:08 Dose: Not Given Sodium Chloride (0.9 % Sodium Chloride Flush 3 Ml Syringe) 3 ml IVFLUSH QSHIFT [facility] Last Admin: 08/28/23 07:07 Dose: 3 ml Sumatriptan Succinate (Sumatriptan Succinate 50 Mg Tablet) 50 mg PO DAILY MRX1 PRN PRN Reason: Migraine Headache Trazodone HCl (Trazodone Hcl 100 Mg Tablet) 100 mg PO BEDTIME [facility] Last Admin: 08/27/23 23:37 Dose: 100 mg Home Medications Medication Instructions Recorded Confirmed Last Taken Type albuterol sulfate 90 mcg/actuation 2 puff inhalation Q4-6H PRN 07/31/23 08/27/23 Unknown History aerosol inhaler Shortness Of Breath Or Wheezing divalproex 250 mg tablet,delayed 750 mg PO BEDTIME 07/31/23 08/27/23 07/30/23 History release divalproex 500 mg tablet,delayed 500 mg PO DAILY 07/31/23 08/27/23 07/30/23 History release hydroxyzine HCl 25 mg tablet 25 mg PO BID PRN Anxiety 07/31/23 08/27/23 Unknown History indomethacin 50 mg capsule 50 mg PO BID 07/31/23 08/27/23 07/31/23 History methadone 10 mg/mL oral 120 mg PO DAILY@0900 07/31/23 08/28/23 08/27/23 History concentrate (Methadone Intensol) mometasone-formoterol HFA 100 2 puff inhalation BID 07/31/23 08/27/23 Unknown History mcg-5 mcg/actuation aerosol inhaler (Dulera) trazodone 50 mg tablet 100 mg PO BEDTIME 07/31/23 08/27/23 Unknown History mirtazapine 15 mg tablet 15 mg PO BEDTIME 08/27/23 08/27/23 Unknown History oxycodone 5 mg tablet 10 mg PO Q4H PRN Pain, 08/27/23 08/27/23 Unknown History Moderate(Pain Scale 4-6) sumatriptan succinate 50 mg tablet 50 mg PO DAILY MRX1 PRN Migraine 08/27/23 08/27/23 Unknown History Headache Physical Exam Vital Signs: Vital Signs: Last Vital Signs Temp 97.3 F 08/28/23 07:09 Pulse 63 08/28/23 07:09 Resp 16 08/28/23 07:09 BP 107/57 L 08/28/23 07:09 Pulse Ox 97 08/28/23 07:09 O2 Del Method Room Air 08/28/23 07:09 O2 Flow Rate 2 08/27/23 18:15 BMI result Body Mass Index 32.8 Neuro: Other: She is alert and awake with normal spontaneity of speech fluency comprehension and flat affect. Face is symmetrical. Visual lanier are full. There is no focal arm leg or face weakness. Visual lanier are full. Speech is normal. Results Labs 08/27/23 12:21 08/27/23 12:21 Labs: BMP 08/27/23 12:21 Sodium 140 Potassium 5.0 Chloride 103 Carbon Dioxide 29 BUN 37 H Creatinine 1.94 H Calcium 10.0 D Cardiac Enzymes 08/27/23 Range/Units 12:21 Total Creatine Kinase 20 L (26-140) U/L Liver Function 08/27/23 Range/Units 12:21 Total Bilirubin 0.3 (0.0-1.0) mg/dL AST 17 (5-31) U/L ALT 9 (0-31) U/L Alkaline Phosphatase 61 (39-117) U/L Albumin 3.7 (3.5-5.0) g/dL Urine 08/27/23 Range/Units 15:50 Urine Color Yellow Urine Appearance Clear Urine pH 5.0 (5.0-9.0) Ur Specific [place] >= 1.030 H (1.005-1.025) Urine Protein Negative (Neg-Trace) mg/dL Urine Glucose (UA) Negative (Negative) mg/dL Head CT did not reveal any significant abnormality. Assessment and Plan (1) Encephalopathy: Status: Acute 48 years old woman with complex neuropsychiatric history with diagnosis of bipolar disorder, polysubstance abuse, and complex partial seizure disorder. Her seizures typically made her briefly confused or spacey with eyes rolled over. Her present symptoms were not typical of that. Etiology of this is unclear and might be multifactorial including drugs. She stated that Keppra helped her in I would continue the same dose of Keppra. Appropriate management of drug abuse is recommended. Procedures Date of Service Date of Service: 08/28/23
[2023-08-28 15:24] VITALS: BP 97/62; PULSE 70; RESP 14; TEMP 37.1; O2SAT 90
[2023-08-28] MEDS: methADONE HCl 20 MG/2 ML ORAL.CONC 30 MG PO (22:19)
[2023-08-28] MEDS: hydrOXYzine HCL 25 MG TABLET PO (22:21)
[2023-08-28] MEDS: Divalproex Sodium 250 MG TABLET.DR 750 MG PO (22:21)
[2023-08-28] MEDS: Mirtazapine 15 MG TABLET PO (22:22)
[2023-08-28] MEDS: traZODone HCL 100 MG TABLET PO (22:22)
[2023-08-28] MEDS: Enoxaparin Sodium 40 MG/0.4 ML SYRINGE SUBCUT (22:24)
[2023-08-29] MEDS: Fluticasone/Vilanterol 100/25 BLST.W.DEV 1 PUFF INHALE (07:45)
[2023-08-29 07:48] VITALS: PULSE 73; RESP 18; O2SAT 96
[2023-08-29 07:53] VITALS: BP 113/61; PULSE 74; RESP 16; TEMP 36.5; O2SAT 93
[2023-08-29] MEDS: 0.9 % Sodium Chloride Flush 3 ML SYRINGE IVFLUSH (07:54)
[2023-08-29] MEDS: methADONE HCl 20 MG/2 ML ORAL.CONC 120 MG PO (07:55)
[2023-08-29] MEDS: levETIRAcetam 500 MG TABLET PO (07:55)
[2023-08-29] MEDS: Divalproex Sodium 500 MG TABLET.DR PO (07:55)
[2023-08-29] MEDS: polyethylene glycoL 3350 17 GM POWD.PACK PO (07:55)
[2023-08-29] MEDS: oxyCODONE HCl Immed Release 5 MG TABLET 10 MG PO ×2 (07:56→12:06)
--- NOTE | 2023-08-29 08:49 | HO.PM.IMPN ---
Subjective Subjective Date of Service: 08/29/23 Interval History: no copmlaints Physical Exam Vital Signs: Vital Signs: Last Vital Signs Temp 97.7 F 08/29/23 07:53 Pulse 74 08/29/23 07:53 Resp 16 08/29/23 07:53 BP 113/61 08/29/23 07:53 Pulse Ox 93 08/29/23 07:53 O2 Del Method Room Air 08/29/23 07:53 O2 Flow Rate 2 08/27/23 18:15 BMI result Body Mass Index 32.8 Neuro: Other: She is alert and awake with normal spontaneity of speech fluency comprehension and flat affect. Face is symmetrical. Visual lanier are full. There is no focal arm leg or face weakness. Visual lanier are full. Speech is normal. Objective Data Active Medications Acetaminophen (Acetaminophen 325 Mg Tablet) 650 mg PO Q6H PRN PRN Reason: Pain, Mild (Pain Scale 1-3) Albuterol Sulfate (Albuterol Sulfate 90 Mcg 8 Gm Inhaler) 2 puff INHALE Q4H PRN PRN Reason: Shortness Of Breath Or Wheezing Divalproex Sodium (Divalproex Sodium 250 Mg Tablet.) 750 mg PO BEDTIME [facility] Last Admin: 08/28/23 22:21 Dose: 750 mg Documented By: ANDREI Divalproex Sodium (Divalproex Sodium 500 Mg Tablet.) 500 mg PO DAILY [facility] Last Admin: 08/29/23 07:55 Dose: 500 mg Documented By: SHALONDA Enoxaparin Sodium (Enoxaparin Sodium 40 Mg/0.4 Ml Syringe) 40 mg SUBCUT Q24H [facility] Last Admin: 08/28/23 22:24 Dose: 40 mg Documented By: ANDREI Fluticasone/Vilanterol (Fluticasone/Vilanterol 100/25 Blst.W.Dev) 1 puff INHALE RDAILY [facility] Last Admin: 08/29/23 07:45 Dose: 1 puff Documented By: HAL Hydroxyzine HCl (Hydroxyzine Hcl 25 Mg Tablet) 25 mg PO BID PRN PRN Reason: Anxiety Last Admin: 08/28/23 22:21 Dose: 25 mg Documented By: ANDREI Levetiracetam (Levetiracetam 500 Mg Tablet) 500 mg PO BID [facility] Last Admin: 02/17/24 07:55 Dose: 500 mg Documented By: SHALONDA Melatonin (Melatonin 3 Mg Tablet) 6 mg PO BEDTIME PRN PRN Reason: Insomnia Methadone HCl (Methadone Hcl 20 Mg/2 Ml Oral.Conc) 120 mg PO DAILY@0900 [facility] Last Admin: 08/29/23 07:55 Dose: 120 mg Documented By: SHALONDA Methadone HCl (Methadone Hcl 20 Mg/2 Ml Oral.Conc) 30 mg PO BEDTIME [facility] Last Admin: 08/28/23 22:19 Dose: 30 mg Documented By: ANDREI Mirtazapine (Mirtazapine 15 Mg Tablet) 15 mg PO BEDTIME [facility] Last Admin: 08/28/23 22:22 Dose: 15 mg Documented By: ANDREI Ondansetron HCl (Ondansetron Hcl 4 Mg/2 Ml Vial) 4 mg IVPUSH Q8H PRN PRN Reason: Nausea and Vomiting Oxycodone HCl (Oxycodone Hcl Immed Release 5 Mg Tablet) 10 mg PO Q4H PRN PRN Reason: Pain, Moderate(Pain Scale 4-6) Last Admin: 08/29/23 07:56 Dose: 10 mg Documented By: SHALONDA Polyethylene Glycol (Polyethylene Glycol 3350 17 Gm Powd.Pack) 17 gm PO DAILY [facility] Last Admin: 08/29/23 07:55 Dose: 17 gm Documented By: SHALONDA Sodium Chloride (0.9 % Sodium Chloride Flush 3 Ml Syringe) 3 ml IVFLUSH QSHIFT [facility] Last Admin: 08/29/23 07:54 Dose: 3 ml Documented By: SHALONDA Sumatriptan Succinate (Sumatriptan Succinate 50 Mg Tablet) 50 mg PO DAILY MRX1 PRN PRN Reason: Migraine Headache Trazodone HCl (Trazodone Hcl 100 Mg Tablet) 100 mg PO BEDTIME [facility] Last Admin: 08/28/23 22:22 Dose: 100 mg Documented By: ANDREI Labs 08/27/23 12:21 08/27/23 12:21 Microbiology Microbiology Results: Microbiology 08/27/23 15:54 Blood Culture - Preliminary Blood - Venous No growth after 24 hours. 08/27/23 15:50 Blood Culture - Preliminary Blood - Venous No growth after 24 hours. Assessment and Plan (1) ABDIRAHMAN (acute kidney injury): Status: Acute Plan 48F PMH opiate dependence, epilepsy, asthma, recent left fibula fracture, presented with dizzyness, found to have ABDIRAHMAN ABDIRAHMAN hypovolemic, NSAIDs, hypotension given 3L isotonic fluids in ED follow up bmp hypotension due to hypovolemia resolved possible seizure rekha andre neuro appreciated follow up eeg no changes to meds recent left fibula fracture nsb lle patient not interested in returing to STR opiate dependence methadone Mild intermittent asthma stable dvt prophylaxis - lovenox full code reason for continued hospitalization: awaiting evidence of improved renal function Quality Stroke Does the patient have a stroke diagnosis?: No VTE Prior VTE?: No VTE Risk Level:: Medical - moderate - high VTE Device Contraindication: Treatment Not Indicated VTE Drug Contraindication: N/A - Med Ordered
[2023-08-29 09:13] LABS: Hematocrit 37.9 % (37.0-47.0); Hemoglobin 12.4 g/dl (12.0-16.0); Mean Corpuscular HGB Conc 32.7 g/dl (31.0-35.0); Mean Corpuscular Hemoglobin 27.5 pg (27.0-33.0); Mean Platelet Volume 10.6 fL (9.4-12.3); Platelet Count 159 X10*3/uL (160-400); Red Blood Count 4.51 X10*6/uL (4.20-5.50); Red Cell Distribution Width 14.2 % (11.0-16.0); White Blood Count 3.2 X10*3/uL (4.8-10.8)
[2023-08-29 09:43] LABS: Anion Gap 13 (12-20); Blood Urea Nitrogen 17 mg/dL (9-16); Calcium 9.7 mg/dL (8.4-10.2); Carbon Dioxide 25 mmol/L (22-29); Chloride 105 mmol/L (96-108); Creatinine Clr Calc Pharmacy 102.6; Estimated Glomerular Filt Rate > 60; Glucose Fasting 96 mg/dL (60-99); Potassium 5.1 mmol/L (3.3-5.1); Sodium 138 mmol/L (135-145)
--- NOTE | 2023-08-29 10:06 | P.DS_ITS ---
DS: Providers Provider Date of Service: 08/29/23 Date of admission: 08/27/23 21:14 Primary care physician: Magen Lantigua MD Consults: 08/27/23 21:14 Consult to Neurology Routine Consulting Provider: [facility] Reason for consultation: seizure 08/27/23 21:19 Consult to Orthopedics Routine Consulting Provider: [facility] Reason for consultation: s/p ORIF of medial malleolar fracture 08/27/23 23:51 Addiction Medicine Routine Consulting Provider: Addiction Covering Reason for consultation: Pain management; pt with OUD, on oxy and methadone DS: Diagnosis Discharge Diagnosis (1) ABDIRAHMAN (acute kidney injury): Status: Acute DS: Summary Hospital Course Hospital Course: from initial hpi: 48-year-old female with a PMH significant for seizure disorder, asthma, and hx of opioid use disorder who presents to the ED with lightheadedness, dizziness, and possible seizure at home. Patient was recently admitted to the hospital on 07/31-08/12 for seizure activity with fall and left ankle injury. Imaging showed a left distal fibula and medial malleolus fracture that was surgically repaired by ORIF on 08/06/2023. Was discharged to SNF for short-term rehab where she states she stayed for 1 week. Since discharge patient has still been nonweightbearing on left foot, but has been able to ambulate around the house with assistance from wheelchair. Patient states that today she felt ?disoriented? started around 09:00. Reports that she believes she had a seizure, since she felt lightheaded, dizzy, and generally unwell. Noted that her blood pressure dropped. All of this she reports happens when she has seizures. States she has had 2 seizures this past month, but can go for over a year without experiencing one. Patient also reports significant pain in left ankle foot, and that she just feels generally ?unwell?. Reports being compliant with home medications and eating and drinking normally. Denies fever, chills, nausea, vomiting, abdominal pain. No chest pain/pressure, palpitations. Denies shortness of breath or pleuritic chest pain. States In the ED pt was tachycardic up to 1 3, hypoxic as low as 88% on RA, and was soft BP as low as 77/47. Labs were significant for elevated D-dimer of 595, BUN 37, and creatinine 1.97. No leukocytosis. Stable H&H. No significant electrolyte abnormalities. Lactic acid WNL at 0.7. Hepatic function WNL. Troponin negative. UA negative for UTI. CXR showed no acute abnormality. Head CT showed no acute intracranial pathology. Chest CT showed mild bronchial wall thickening and mosaic attenuation of the lung suggesting small airway disease. Pulmonary perfusion imaging negative for pulmonary thromboembolism. Venous duplex negative for DVT in bilateral lower extremities. EKG demonstrated normal sinus rhythm with sinus arrhythmia and T-wave inversions in V1, and V3. Patient was treated with 3L IVF, oxycodone, and ceftriaxone. Pt will be admitted to the hospital for treatment and further evaluation of ABDIRAHMAN and hypotension. hospital course: Patient was admitted for acute kidney injury due to hypovolemia, NSAIDs, hypotension. She was given 3 L of isotonic fluids in the ER and creatinine im proved to normal. Her hypotension was likely due to hypovolemia resolved. For question of seizure she was seen by Neurology who recommended continuing Depakote and Keppra, EEG was done report is pending and should be followed up outpatient. For recent left fibula fracture she was seen by Orthopedics who recommended continued nonweightbearing left lower extremity and following up outpatient. For opiate dependence he was continued on methadone. For mild intermittent asthma she remained stable. Patient is feeling better will be discharged home. Time Attestation Discharge coordination time: Greater than 30 minutes Quality: Safe Use of Opioids Does Pt have an Active Cancer Diagnosis on the Problem List?: No Quality: Stroke Does the patient have a stroke diagnosis?: No Physical Exam Vital Signs: Vital Signs: Last Vital Signs Temp 97.7 F 08/29/23 07:53 Pulse 74 08/29/23 07:53 Resp 16 08/29/23 07:53 BP 113/61 08/29/23 07:53 Pulse Ox 93 08/29/23 07:53 O2 Del Method Room Air 08/29/23 07:53 O2 Flow Rate 2 08/27/23 18:15 BMI result Body Mass Index 32.8 Neuro: Other: She is alert and awake with normal spontaneity of speech fluency comprehension and flat affect. Face is symmetrical. Visual lanier are full. There is no focal arm leg or face weakness. Visual lanier are full. Speech is normal. DS: Data Data Completed and Pending Completed studies during hospitalization [Text1]: Procedures Introduction of Anesthetic Agent into Peripheral Nerves and Plexi, Percutaneous Approach (07/31/23) Reposition Left Fibula with Internal Fixation Device, Open Approach (07/31/23) Reposition Left Tibia with Internal Fixation Device, Open Approach (07/31/23) Labs on day of discharge: Laboratory Results - last 24 hr 08/29/23 08:51 WBC 3.2 L RBC 4.51 Hgb 12.4 Hct 37.9 MCV 84.0 MCH 27.5 MCHC 32.7 RDW 14.2 Plt Count 159 L MPV 10.6 Absolute Nucleated RBC 0.000 Nucleated RBC % (auto) 0.0 Sodium 138 Potassium 5.1 Chloride 105 Carbon Dioxide 25 Anion Gap 13 BUN 17 H Creatinine 0.82 Estim Creat Clear Calc 102.6 Estimated GFR > 60 Fasting Glucose 96 Calcium 9.7 Preliminary micro results at discharge 08/27/23 15:54 Blood Culture - Preliminary Blood - Venous No growth after 24 hours. 08/27/23 15:50 Blood Culture - Preliminary Blood - Venous No growth after 24 hours. Discharge Plan Discharge Anticipated Discharge Date/Time: 08/29/23 10:04 Patient Disposition: Home, Self-Care Discharge Diagnosis: abdirahman Referrals: Magen Lantigua MD [Primary Care Provider] - 1 Week Discharge Medications: Continued (DME) nebulizer and compressor [PureAir Mini Nebulizer] Device See Rx Instructions .Route Qty: 1 0RF Rx Instructions: As directed sumatriptan succinate 50 mg tablet 50 mg PO DAILY MRX1 PRN (Reason: Migraine Headache) mirtazapine 15 mg tablet 15 mg PO BEDTIME oxycodone 5 mg tablet 10 mg PO Q4H PRN (Reason: Pain, Moderate(Pain Scale 4-6)) Rx Instructions: Partial Fill upon patient request. divalproex 250 mg tablet,delayed release (DR/EC) 750 mg PO BEDTIME trazodone 50 mg tablet 100 mg PO BEDTIME divalproex 500 mg tablet,delayed release (DR/EC) 500 mg PO DAILY indomethacin 50 mg capsule 50 mg PO BID methadone [Methadone Intensol] 10 mg/mL Concentrate 120 mg PO DAILY@0900 Dulera 100-5 mcg/actuation HFA aerosol inhaler 2 puff inhalation BID hydroxyzine HCl 25 mg tablet 25 mg PO BID PRN (Reason: Anxiety) albuterol sulfate 90 mcg/actuation HFA aerosol inhaler 2 puff inhalation Q4-6H PRN (Reason: Shortness Of Breath Or Wheezing) polyethylene glycol 3350 17 gram Powder In Packet 17 g PO DAILY Qty: 1 0RF levetiracetam 500 mg Tablet 500 mg PO BID Qty: 1 0RF methadone [Methadose] 10 mg/mL Concentrate 30 mg PO BEDTIME Qty: 1 0RF Rx Instructions: Partial Fill upon patient request. ondansetron 4 mg Tablet,Disintegrating 4 mg translingual Q6H PRN (Reason: Nausea And Vomiting) Qty: 1 0RF oxycodone [OxyContin] 10 mg Tablet,Oral Only,Ext.Rel.12 Hr 10 mg PO BID Qty: 14 0RF Rx Instructions: Partial Fill upon patient request. Discharge Orders: Discharge Order (Routine); Ordered 08/29/23 Ordered By: Robert Wasserman Diet: Advance to usual diet Activity on Discharge: anna mcdonald Stand Alone Forms: Patient Portal Discharge page, Work/School Release Care Plan Goals: recovery Health Concerns: seizures, abdirahman Plan of Treatment: stay hydrated, follow up with neurology and ortho Assessment: see above
--- NOTE | 2023-08-29 10:36 | MHC.CM.PN ---
PT WILL DC HOME TODAY WITH NO NEW SERVICES VIA [facility]
--- NOTE | 2023-08-29 12:11 | PC.NURSE ---
Three vapes given to EMS for patient transfer. D/C
[2023-08-29 16:09] LABS: Levetiracetam Keppra 17.9 mcg/mL (6.0-46.0)
== END 2023-08-29 12:20 | disposition home or self-care (01) | DRG 641 ==
LOC: HO.ED 15:47 → HO.EDOVER 21:24 → HO.S3 21:35
PROVIDERS: Physician Assistant Medical; Admitting Provider Student in an Organized Health Care Education/Training Program; Emergency Provider Emergency Medicine; PCP Internal Medicine; Visit Provider Internal Medicine
DX: E86.1 Hypovolemia (principal); F11.20 Opioid dependence, uncomplicated; G40.209 Localization-related (focal) (partial) symptomatic epilepsy and epileptic syndromes with complex partial seizures, not intractable, without status epilepticus; N17.9 Acute kidney failure, unspecified; F17.290 Nicotine dependence, other tobacco product, uncomplicated; J45.20 Mild intermittent asthma, uncomplicated; I95.9 Hypotension, unspecified; F31.9 Bipolar disorder, unspecified; Z71.6 Tobacco abuse counseling; S82.52XD Displaced fracture of medial malleolus of left tibia, subsequent encounter for closed fracture with routine healing; X58.XXXD Exposure to other specified factors, subsequent encounter; Z20.822 Contact with and (suspected) exposure to COVID-19; Z79.899 Other long term (current) drug therapy
CPT/HCPCS: 0241U; 36415; 70450; 71045; 71250; 78580; 80048; 80053; 80177; 80307; 81001; 82550; 82803; 83605; 83735; 84484; 84702; 85025; 85027; 85379; 87040; 93005; 93970; 94640; 95816; 99285; A9540; J0696; J1650

== ENCOUNTER → 2023-08-27 12:05 | Outpatient (BNV) | payer OTHER, SELFPAY | PROVIDERS: Emergency Provider Emergency Medicine; PCP Internal Medicine; Visit Provider Internal Medicine Cardiovascular Disease | DX: R94.31 Abnormal electrocardiogram [ECG] [EKG] (principal) | CPT/HCPCS: 93010 ==

== ENCOUNTER → 2023-08-27 21:14 | Outpatient (BNV) | payer OTHER, SELFPAY | PROVIDERS: Admitting Provider Student in an Organized Health Care Education/Training Program; Emergency Provider Emergency Medicine; PCP Internal Medicine; Visit Provider Psychiatry & Neurology Neurology | DX: G93.40 Encephalopathy, unspecified (principal) | CPT/HCPCS: 99222 ==

== ENCOUNTER → 2023-08-27 21:14 | Outpatient (BNV) | payer OTHER, SELFPAY | PROVIDERS: Admitting Provider Student in an Organized Health Care Education/Training Program; Emergency Provider Emergency Medicine; PCP Internal Medicine; Visit Provider Student in an Organized Health Care Education/Training Program | DX: N17.9 Acute kidney failure, unspecified (principal); E86.1 Hypovolemia | CPT/HCPCS: 99223; 99232; 99238 ==

== ENCOUNTER 2023-09-03 08:21 | Outpatient (REF) | payer OTHER, SELFPAY ==
--- NOTE | ~2023-09-03 | XR_ITS ---
EXAMINATION: XR ANKLE, LEFT CLINICAL INFORMATION: Pain. COMPARISON: Radiographs dated 08/20/2023. TECHNIQUE: AP, lateral, and mortise views of the left ankle. FINDINGS: An intact fixator plate and fixator screws are applied to the distal left fibula, transfixing a fracture in anatomic alignment. There are intact fixator screws applied to the medial malleolus, with nondisplaced fracture line again visible. Both fracture lines are seen. The ankle mortise is intact. No dislocation or left ankle joint effusion is seen. Boehler's angle is normal. There is a small posterior calcaneal spur. There is mild soft tissue swelling adjacent to the lateral malleolus. There are metallic clips external to the patient likely related to dressing material. XR/XR ankle LT min 3V IMPRESSION: There is well-maintained alignment of bimalleolar fracture fragments status-post ORIF. No hardware failure or loosening is seen.
== END 2023-09-03 08:22 | disposition home or self-care (01) ==
LOC: HO.HOSX 08:21
PROVIDERS: Visit Provider Physician Assistant
DX: S82.52XD Displaced fracture of medial malleolus of left tibia, subsequent encounter for closed fracture with routine healing (principal); M25.572 Pain in left ankle and joints of left foot; X58.XXXD Exposure to other specified factors, subsequent encounter
CPT/HCPCS: 29405; 73610; 99212

== ENCOUNTER 2023-09-03 08:57 | Outpatient (AMB) | payer OTHER, SELFPAY ==
--- NOTE | 2023-09-03 09:01 | A.OFFVIS_ITS ---
Intake Intake Visit Reasons: PO- Lt ankle ORIF 08/05/23 Intake Note: Chi a 48 year old female presents today for a post operative left ankle ORIF on 08/05/23 NE. Patient reports she is still having pain but has improved. She has no concerns at this time. Allergies amoxicillin [AMOXICILLIN] Allergy (Intermediate, Verified 09/03/23 09:19) RASH Penicillins [PENICILLINS] Allergy (Intermediate, Verified 09/03/23 09:19) RASH HPI PO- Lt ankle ORIF 08/05/23 HPI Details 48-year-old female who presents in the o ice today 1 month status post left ankle lateral and medial malleolar ORIF, which was performed on 08/04/[address] Vazquez. The patient was last by Burt Cruz PA-C and myself while she was admitted to medical service from 08/27/2023-08/29/2023. [place] were removed, she was placed back into the posterior splint, and she was to remain non-weight bearing. The patient reports she is still having pain but does have some improvement. She has no concerns at this time. [facility] Medical History (Updated 09/03/23 @ 09:24 by Estelle Silverio) Clavicle fracture Narcotic abuse Seizures Asthma COPD (chronic obstructive pulmonary disease) Surgical History (Updated 09/03/23 @ 09:21 by Susan Hernandez CMA) History of ankle surgery (08/05/23) H/O right knee surgery H/O left knee surgery Social History Household Members: Unknown / Unable to assess Household Members Other:: pt refused to respond Housing: House Do you presently have visiting nurse or other home services: No Alcohol intake: unknown Patient Tobacco Use Status: Tobacco use Unknown Tobacco use type: Smokeless Tobacco Second Hand Smoke Exposure: No Substance Use Type: Crack/Cocaine and Opiates Advance Directives Date on File: 07/31/23 service: No Review of Systems Const All systems reviewed & are unremarkable except as noted in HPI and below Physical Exam Const General: cooperative, healthy appearing and no acute distress Resp Effort & Inspection: normal respiratory effort and able to speak in complete sentences Cardio Rate: regular rate Peripheral pulses: Peripheral pulses 2+ throughout GI Palpation (GI): Soft to palpation Skin Lesions: no lesions Rashes: no rashes Extrem Other: Left ankle: Incision site is clean, dry, and intact. Site is covered in steri- stripes. Medial fracture blister noted, not surrounded by erythema or drainage. No signs of infection. Sensation intact. Pedal pulse intact. Office Procedures Casting/Splints 50016-[id number] Leg Cast Application Procedure code (CPT) selection complete Assessment & Plan Assessment & Plan (1) Fracture of medial malleolus, left, closed: Comment: Left ankle lateral and medial malleolar ORIF, 08/04/2023 NE Code(s): S82.52XA - Displaced fracture of medial malleolus of left tibia, initial encounter for closed fracture Qualifiers: Encounter type: subsequent encounter Fracture alignment: displaced Fracture healing: with routine healing Qualified Code(s): S82.52XD - Displaced fracture of medial malleolus of left tibia, subsequent encounter for closed fracture with routine healing Plan Ms. Mosley is a 48-year-old female who presents in the office today 1 month status post left ankle lateral and medial malleolar ORIF, which was performed on 08/04/[address] Vazquez. The patient was last by Burt Cruz PA-C while she was admitted to medical service from 08/27/2023-08/29/2023. [place] were removed, she was placed back into the splint, and she was to remain non-weight bearing. The patient reports she is still having pain but does have some improvement. She has no concerns at this time. The fracture blister was covered with non-stick gauze. She was placed into a short leg cast, custom made, and she will remain non-weight bearing for a total of 6 weeks post op. I educated the patient that should the cast become dirty or wet she should call the office immediately for a cast change to avoid any possible complications of infection. Follow up will be in 4 week with x-rays out of the cast with anticipation of transitioning to a boot with physical therapy, or sooner if needed. X-rays of the left ankle which were obtained while in the office today and were reviewed by me, Sybil Salvador PA-C, revealed orthopedic hardware intact with routine healing. Orders: Orders XR ankle LT min 3V Today M25.579 - Pain in unspecified ankle and joints of unspecified foot Medications: New [Knee scooter] As directed 1 ea 0RF Patient Instructions: Scribed by Estelle Silverio [employer] forces medical sergeant, for Sybil Salvador PA-C on 09/03/2023 at 9:00 am, EST. Coding Level of Care Code Global (79512) Diagnoses Closed displaced fracture of medial malleolus of left tibia with routine healing, subsequent encounter S82.52XD Encounter type: subsequent encounter Fracture alignment: displaced Fracture healing: with routine healing CPT Codes Casting - CPT: 57322-[id number] Leg Cast Application ([id number])
== END 2023-09-03 10:13 | disposition home or self-care (01) ==
PROVIDERS: PCP Internal Medicine; Visit Provider Physician Assistant
DX: S82.52XD Displaced fracture of medial malleolus of left tibia, subsequent encounter for closed fracture with routine healing (principal)
CPT/HCPCS: 29405; 99024

== ENCOUNTER 2023-09-21 11:20 | Inpatient (IN) | payer OTHER, SELFPAY ==
[2023-09-21] VITALS (7 sets, daily range): BP systolic 86–115; BP diastolic 58–67; PULSE 58–94; RESP 14–20; TEMP 36.9–37; O2SAT 86–98; BMI 24.5
--- NOTE | 2023-09-21 | EEG_ITS ---
FINDINGS: Waking background activity consists of a moderate voltage diffuse 7 hertz to 7.5 hertz theta intermixed with muscle artifacts anteriorly and odd movement artifacts. Photic stimulation was refused by the patient. Hyperventilation was omitted. No sleep stages are identified. IMPRESSION: This is an abnormal EEG due to mild diffuse background slowing consistent with a diffuse encephalopathic process. No epileptiform discharges were seen. MD OLGA Saleh/SCOTT / [phone]
--- NOTE | ~2023-09-21 | XR_ITS ---
EXAMINATION: XR CHEST CLINICAL INFORMATION: Shortness of breath. COMPARISON: 08/27/2023 TECHNIQUE: Frontal view of the chest was obtained. FINDINGS: Evaluation is limited by patient positioning. Low lung volumes. No focal consolidation. No pleural effusion. Cardiac silhouette is unchanged. XR/XR chest 1V IMPRESSION: No acute abnormality.
--- NOTE | ~2023-09-21 | CT_ITS ---
EXAMINATION: CT HEAD WITHOUT CONTRAST CLINICAL INFORMATION: Confusion. COMPARISON: 08/27/2023. TECHNIQUE: Contiguous axial imaging was performed from the skull base to vertex without intravenous administration of contrast. This CT examination was performed using dose optimization techniques as appropriate, variously including the following: *Automated exposure control *Adjustment of mA and/or kV according to patient size (this includes techniques or standardized protocols for targeted exams where dose is matched to indication/reason for exam; i.e. extremities or head) *Use of iterative reconstruction technique DLP: 632 mGy-cm FINDINGS: The brain parenchyma has normal attenuation. The lucero-white matter differentiation is well preserved. No evidence of an acute major vascular territory infarction. No intracranial hemorrhage, extra-axial fluid collection, focal mass effect or midline shift. The ventricles have normal size and configuration; no hydrocephalus. The brainstem and cerebellum have a normal appearance. The cerebellar tonsils are in normal position. The calvarium is intact. The visualized paranasal sinuses, mastoid air cells and middle ear cavities are well aerated. The orbits and globes are unremarkable. 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 CT/CT head/brain wo IV con IMPRESSION: No evidence of intracranial mass, hemorrhage or infarction. No acute intracranial pathology compared to 08/27/2023
--- NOTE | ~2023-09-21 | XR_ITS ---
EXAMINATION: XR CHEST CLINICAL INFORMATION: Hypoxia COMPARISON: Chest radiograph 09/26/2023 CT abdomen pelvis 09/20/2013 TECHNIQUE: Frontal view of the chest was obtained. FINDINGS: Heart size within normal limits allowing for poor inspiratory effort. Left chest wall dual-lead pacemaker again noted in good position. Again seen is a small left-sided pleural effusion and some left basilar atelectasis. There is been some mild improvement in appearances retrocardiac density since the study 2 days ago. The right lung remains clear. XR/XR chest 1V IMPRESSION: Small Left-sided pleural effusion with some improvement in retrocardiac density.
--- NOTE | ~2023-09-21 | FL_ITS ---
EXAMINATION: XR FLUOROSCOPY WITH IMAGES CLINICAL INFORMATION: Pacemaker COMPARISON: Chest radiograph 09/21/2023 TECHNIQUE: Fluoroscopy Time: 14.2 minutes. Cumulative Dose: 121 mGy. DAP: 33 Gycm2. Images: 2. FINDINGS: Partial visualization is made of a left subclavian wire. Final image demonstrates partial visualization of 2 pacer electrostimulation leads. FL/FL guidance in OR IMPRESSION: Intraprocedural fluoroscopy as detailed above.
--- NOTE | ~2023-09-21 | XR_ITS ---
EXAMINATION: XR CHEST CLINICAL INFORMATION: Reason for Exam pacemaker COMPARISON: Chest radiograph 09/21/2023 TECHNIQUE: 2 views of the chest FINDINGS: Lines and tubes: Left chest wall dual-lead cardiac pacemaker leads overlying the right atrium and ventricle. EKG leads overlie the patient. Right upper quadrant cholecystectomy clips. New left retrocardiac opacities which may reflect atelectasis, aspiration or infection. New small left pleural effusion. Low lung volumes. No pneumothorax. Normal cardiomediastinal silhouette. XR/XR chest 2V IMPRESSION: 1. Left chest wall dual-lead cardiac pacemaker leads overlying the right atrium and ventricle. 2. New left retrocardiac opacities which may reflect atelectasis, aspiration or infection. 3. New small left pleural effusion.
--- NOTE | ~2023-09-21 | CT_ITS ---
EXAMINATION: CT ABDOMEN AND PELVIS WITHOUT CONTRAST CLINICAL INFORMATION: Acute renal insufficiency. Flank pain. COMPARISON: 07/26/2019 TECHNIQUE: Multidetector volumetric imaging was performed from the superior aspect of the liver through the pubic symphysis. Sagittal and coronal reformatted images were obtained on the technologist's workstation. This CT examination was performed using dose optimization techniques as appropriate, variously including the following: *Automated exposure control *Adjustment of mA and/or kV according to patient size (this includes techniques or standardized protocols for targeted exams where dose is matched to indication/reason for exam; i.e. extremities or head) *Use of iterative reconstruction technique DLP: 785 mGy-cm FINDINGS: LUNG BASES: Bibasilar atelectasis. Small hiatal hernia. LIVER, GALLBLADDER, AND BILIARY TREE: The noncontrast liver is normal in size and contour. Postcholecystectomy changes of the biliary ductal system similar to prior. The gallbladder is surgically absent. PANCREAS: Unremarkable. SPLEEN: Unremarkable. ADRENAL GLANDS: Unremarkable. KIDNEYS AND URETERS: The kidneys are normal in size, shape, and attenuation. No obstructing calculus. No hydronephrosis. No perinephric stranding. BLADDER: Underdistended. GASTROINTESTINAL TRACT: Small and large bowel loops are of normal caliber. No small bowel obstruction. Fecal retention in the colon. Appendix is within normal limits. ABDOMINAL WALL: No significant hernia is appreciated. LYMPH NODES: Few subcentimeter mesenteric lymph nodes. VASCULAR: Normal caliber abdominal aorta. PELVIC VISCERA: Uterus is surgically absent. Surgical clips in the presacral space. OSSEOUS STRUCTURES: No destructive bone lesions CT/CT abdomen pelvis wo IV con IMPRESSION: Possible 3 mm nonobstructing calculus in the distal right ureter. No hydronephrosis. Constipation.
--- NOTE | 2023-09-21 11:35 | ED.GENADULT ---
HPI - General Adult General Chief complaint: Altered Mental Status Stated complaint: WEAKNESS,96% 5LPM PER EMS Time Seen by Provider: 09/21/23 11:27 Source: patient, EMS and RN notes reviewed Mode of arrival: EMS Limitations: no limitations History of Present Illness HPI narrative: This is a 48-year-old female, with a history of seizure disorder, asthma, opiate use disorder, and recent left ankle surgery presenting to the emergency department, via EMS, with complaints of not feeling well. Per EMS, family is concerned due to increased disorientation, confusion. She has a history of polysubstance abuse however family reports that they are cameras and all opiates or locked up, and she has not had any recent visitors, however family concern for possible ingestion of opiates. Patient was placed on 5 L nasal cannula, she was also found to be hypotensive. During my assessment, patient reporting that she feels very disoriented, and has difficulty with word finding which has been present since August. She denies any fevers, chills, headaches, dizziness, chest pain, shortness for breath, abdominal pain, nausea, vomiting or diarrhea. She denies any current pain. Denies any alcohol or drug use. Patient reports that over the last several days she has felt increased fatigue, states that she has not been sleeping due to the pain in her leg. Patient had a ORIF of her left ankle in July. She does report that she vapes. No other complaints or concerns at this time. MD complaint: AMS, hypoxia Onset (ago): day(s) Radiation: non-radiation Relieving factors: none Exacerbating factors: none Associated symptoms: confusion Treatments prior to arrival: none Related Data Home Medications Medication Instructions Recorded Confirmed divalproex 250 mg tablet,delayed 750 mg PO BEDTIME 07/31/23 09/21/23 release divalproex 500 mg tablet,delayed 500 mg PO DAILY 07/31/23 09/21/23 release hydroxyzine HCl 25 mg tablet 25 mg PO BID PRN Anxiety 07/31/23 09/21/23 indomethacin 50 mg capsule 50 mg PO BID 07/31/23 09/21/23 methadone 10 mg/mL oral 120 mg PO DAILY@0900 07/31/23 08/28/23 concentrate (Methadone Intensol) mometasone-formoterol HFA 100 2 puff inhalation BID 07/31/23 09/21/23 mcg-5 mcg/actuation aerosol inhaler (Dulera) trazodone 50 mg tablet 100 mg PO BEDTIME 07/31/23 09/21/23 zxzppib-gljvoxcavokvy-kagigvil 250 2 tab PO Q6H PRN Migraine Headache 09/21/23 09/21/23 mg-250 mg-65 mg tablet (Excedrin Extra Strength) oxycodone 5 mg tablet 5 mg PO Q6H PRN pain 09/21/23 09/21/23 Previous Rx's Medication Instructions Recorded nebulizer and compressor (PureAir #1 ea 04/09/21 Mini Nebulizer) levetiracetam 500 mg tablet 500 mg PO BID #1 tab 08/12/23 methadone 10 mg/mL oral 30 mg (3 mL) PO BEDTIME #1 mL 08/12/23 concentrate (Methadose) ondansetron 4 mg disintegrating 4 mg translingual Q6H PRN Nausea 08/12/23 tablet And Vomiting #1 tab Knee scooter #1 ea 09/03/23 Allergies Allergy/AdvReac Type Severity Reaction Status Date / Time amoxicillin [AMOXICILLIN] Allergy Intermediate RASH Verified 09/03/23 09:19 Penicillins [PENICILLINS] Allergy Intermediate RASH Verified 09/03/23 09:19 Review of Systems Review of Systems: Yes all other systems are reviewed and are negative Constitutional: Constitutional: Reports as per [facility] Past Medical History Attestation statement: The following information was validated with the patient. Medical History Clavicle fracture Narcotic abuse Seizures Asthma COPD (chronic obstructive pulmonary disease) Surgical History History of ankle surgery (08/05/23) H/O right knee surgery H/O left knee surgery Social History Social History Household Members: Unknown / Unable to assess Household Members Other:: pt refused to respond Housing: House Do you presently have visiting nurse or other home services: No Alcohol intake: unknown Patient Tobacco Use Status: Tobacco use Unknown Tobacco use type: Smokeless Tobacco Smoked in Last 30 Days: No Second Hand Smoke Exposure: No Use of substances other than those prescribed or required for medical reasons: No Substance Use Type: Crack/Cocaine and Opiates Advance Directives: Yes Advance Directives on File: Yes Advance Directives Date on File: 07/31/23 Nutrition Risks: No Nutritional Risk Patient : No service: No Physical Exam ED Vital Signs: Vital Signs - 24 hr 09/21/23 11:38 09/21/23 13:57 09/21/23 13:58 Temperature 98.4 F Pulse Rate 94 72 Respiratory Rate 14 Blood Pressure 97/67 97/65 Pulse Oximetry 96 86 L 95 Oxygen Delivery Method Room Air Room Air Nasal Cannula Oxygen Flow Rate 1.5 09/21/23 16:00 09/21/23 18:55 09/21/23 21:03 Temperature 98.6 F 98.6 F 98.6 F Pulse Rate 71 63 58 Respiratory Rate 20 16 20 Blood Pressure 105/61 100/62 115/58 L Pulse Oximetry 95 93 98 Oxygen Delivery Method Room Air Room Air Room Air Oxygen Flow Rate BMI result Body Mass Index 24.5 Const General: cooperative, comfortable and no acute distress Orientation/consciousness: patient oriented x3 Limitations: no limitations HENCO Head: Yes normal to inspection, Yes normocephalic and Yes atraumatic Ears: hearing grossly normal bilaterally General nose exam: Normal external nose present Face and sinus: Yes normal facial exam Mouth: Normal oral and palatal mucosa present, oropharynx normal and moist mucous membranes Throat: Yes posterior oropharynx normal Eyes Other: pinpoint pupils noted bilaterally, reactive. General: appearance normal, both eyes and all related structures Eyelids: Yes eyelids normal Conjunctivae: conjunctivae normal Sclerae: sclerae normal Pupils: Equal, round and reactive pupils present EOM: EOMs intact bilaterally Neck Neck: Yes normal visual inspection, Yes full ROM and Yes no lymphadenopathy Lymphatic: no lymphadenopathy noted Chest Chest palpation & inspection: normal inspection of the chest Resp Effort & Inspection: normal respiratory effort and able to speak in complete sentences Auscultation: clear to auscultation bilaterally, no crackles, no rales, no rhonchi and no wheezes Cardio Rate: regular rate Rhythm: regular rhythm Heart sounds: S1 normal heart sound present and S2 normal heart sound present GI Inspection: Yes normal to inspection Skin General skin exam: no rashes or lesions noted Trauma: no lacerations or abrasions Wounds: no wounds Neuro General: patient oriented x3 and moves all extremities Cranial nerves: Yes Equal, round and reactive pupils present Extrem Other: Left lower extremity in splint General: Yes normal to inspection Right upper extremity: normal to inspection Left upper extremity: normal to inspection Right lower extremity: normal to inspection Left lower extremity: normal to inspection Course Reevaluation(s) Reevaluation #1: Patient with ABDIRAHMAN, ordered CT scan to rule out obstructive process. CT revealing possible 3 mm nonobstructing calculus in the right distal ureter, no hydro nephrosis, no constipation head CT revealing no intracranial mass, no acute intracranial process compared to previous head CT performed last month. Chest x-ray showing no acute abnormality. She has no leukocytosis, stable H&H, repeat chemistry as creatinine was 2.04. UA is contaminated, reporting no urinary symptoms. Time: 13:30 Reevaluation #2: Pt CT abd returns, no obstructive uropathy noted. Pt re-evaluated, taken off of O2, dipped down to 88% on RA. She is well-appearing, speaking in full sentences, much more alert than previously seen today. Given persistent hypoxia, will repeat chemistry to evaluate ABDIRAHMAN. Was not aware that D-dimer was ordered and resulted, ordered CTA given positive D-dimer result. Given hypoxia, will likely need to be admitted to the hospitalist for further evaluation due to hypoxia, unable to perform ambulation trial given left lower extremity in splint. Sign-out given to my colleague, Abdias Wilson DNP pending CTA chest and repeat chemistry. She likely will need to be admitted for hypoxia and further workup. Time: 17:11 Reevaluation #3: Peripheral IV access infiltrated prior to CTA of chest being obtained upon review of her chart she has her prior elevated D-dimer in August of 2023, in fact current Dimer is less than prior, she was admitted at that time for ABDIRAHMAN and hypoxia of unknown etiology, she had a V/Q scan in August of 2023 which revealed no evidence of pulmonary embolism. Discussed with ED attending Dr. Gonzales, do not feel that repeat V/Q scan is indicated at this time. Patient received 2 L IV fluid, repeat BUN/creatinine 29/1.67. Urinalysis with 2+ leukocyte esterase, urine WBC, 3+ urine bacteria, there is also squamous epithelial cells present, concern for possible metabolic encephalopathy secondary to UTI versus urogenital contamination, Will cover with Rocephin. Alternatively, patient may have been postictal resulting in lethargy. On evaluation at this time she is resting with O2 saturation 92% on 2 L via nasal cannula, she arouses easily to verbal stimuli. She was taken off oxygen in O2 saturation decreased to 87% on room air. Admitted to medicine service, accepting Dr. Grigsby Time: 18:54 Medications Administered Generic Name Dose Route Start Last Admin Trade Name Freyojana PRN Reason Stop Dose Admin Divalproex Sodium 750 mg 09/21/23 22:30 09/21/23 22:44 Divalproex Sodium 250 Mg Tablet. PO 750 mg BEDTIME MELISSA Administration Enoxaparin Sodium 40 mg 09/21/23 23:00 09/21/23 22:44 Enoxaparin Sodium 40 Mg/0.4 Ml Syringe SUBCUT 40 mg Q24H MELISSA Administration Sodium Chloride 1,000 mls @ 100 mls/hr 09/21/23 22:45 09/21/23 22:54 Ns IVCONT 100 mls/hr .Q10H MELISSA Administration Levetiracetam 500 mg 09/21/23 22:30 09/21/23 22:44 Levetiracetam 500 Mg Tablet PO 500 mg BID MELISSA Administration Oxycodone HCl 5 mg 09/21/23 22:29 09/21/23 22:53 Oxycodone Hcl Immed Release 5 Mg Tablet PO 5 mg Q6H PRN Administration Pain, Severe (Pain Scale 7-10) Trazodone HCl 100 mg 09/21/23 22:30 09/21/23 22:44 Trazodone Hcl 100 Mg Tablet PO 100 mg BEDTIME MELISSA Administration Discontinued Medications Generic Name Dose Route Start Last Admin Trade Name Freyojana PRN Reason Stop Dose Admin Sodium Chloride 1,000 mls @ 999 mls/hr 09/21/23 11:45 09/21/23 14:08 Ns IV 09/21/23 12:45 Infused .Q1H1M ONE Infusion Sodium Chloride 1,000 mls @ 999 mls/hr 09/21/23 13:58 09/21/23 15:10 Ns IV 09/21/23 14:58 Infused .Q1H1M ONE Infusion Ceftriaxone Sodium 1 gm/ 50 mls @ 100 mls/hr 09/21/23 18:59 09/21/23 20:09 Sodium Chloride IV 09/21/23 19:28 Infused ONCE ONE Infusion Medical Decision Making Medical Decision Making MDM Narrative: This is a 48 -[id number] with a hx of of seizure disorder, asthma, opiate use disorder, and recent left ankle surgery presenting to the emergency department, via EMS, with complaints of not feeling well. Per EMS, family is concerned due to increased disorientation, confusion. On arrival, blood pressure 97/67, patient appears to be lethargic, pinpoint pupils noted. She is on 1-1/2 L of nasal cannula. She is alert and oriented x3 however appears to be confused and tired. Patient neurologically intact without any focal findings. Differential diagnoses include pneumonia, URI, overdose, opiate overdose, aspiration pneumonia, ACS, PE. Plan: Labs, EKG, chest x-ray, D-dimer Differential Diagnosis Differential Diagnoses: The differential diagnosis associated with the presentation includes See above Admission/Observation Consideration of admission/observation: Escalation of care including admission/observation considered Lab Data [facility] Lab Attestation statement: I reviewed the patient's lab results. No leukocytosis, stable H&H, platelet low at 114, creatinine elevated at 2.04, BUN 32. Urine appears to be contaminated. D-dimer elevated at 423 09/21/23 12:38 09/21/23 17:20 Labs: Lab Results 09/21/23 09/21/23 09/21/23 Range/Units 11:55 12:38 12:40 WBC 3.7 L (4.8-10.8) X10*3/uL RBC 4.52 (4.20-5.50) X10*6/uL Hgb 12.5 (12.0-16.0) g/dl Hct 38.4 (37.0-47.0) % MCV 85.0 (80.0-98.0) fL MCH 27.7 (27.0-33.0) pg MCHC 32.6 (31.0-35.0) g/dl RDW 13.9 (11.0-16.0) % Plt Count 114 L D (160-400) X10*3/uL MPV 10.8 (9.4-12.3) fL Immature Gran % (Auto) 0.0 (0.0-0.4) % Neut % (Auto) 44.2 L (45-73) % Lymph % (Auto) 44.6 H (20-40) % [place] % (Auto) 9.4 (2-11) % Eos % (Auto) 1.3 (0-4) % Baso % (Auto) 0.5 (0-2) % Lymph # (Auto) 1.7 (1.2-4.9) X10*3/uL [place] # (Auto) 0.4 (0.1-1.2) X10*3/uL Eos # (Auto) 0.1 (0.0-0.4) X10*3/uL Baso # (Auto) 0.0 (0.0-0.2) X10*3/uL Abs Immat Gran (auto) 0.00 (0.00-0.03) X10*3/uL Absolute Neuts (auto) 1.6 L (2.0-8.3) x10*3/uL Absolute Nucleated RBC 0.000 (0.0-0.012) X10*3/uL Nucleated RBC % (auto) 0.0 (0.0-0.2) /100WBC Hold Purple Top PT 12.0 (11.1-13.3) SEC INR 1.0 (0.9-1.1) APTT 30.9 (26.0-36.8) SEC D-Dimer High Sensitivty 423 NG/ML Hold Blue Top VBG pH (7.32-7.43) VBG pCO2 mmHg VBG pO2 mmHg VBG HCO3 (22-26) mmol/L VBG O2 Saturation % VBG Base Excess mmol/L Sodium 140 (135-145) mmol/L Potassium 4.5 (3.3-5.1) mmol/L Chloride 104 (96-108) mmol/L Carbon Dioxide 28 (22-29) mmol/L Anion Gap 13 (12-20) BUN 32 H (9-16) mg/dL Creatinine 2.04 H (0.5-1.4) mg/dL Estim Creat Clear Calc 38.8 Estimated GFR 26 Random Glucose 85 (60-115) mg/dL Lactic Acid 0.9 (0.5-2.0) mmol/L Calcium 9.4 (8.4-10.2) mg/dL Magnesium 1.8 (1.6-2.6) mg/dL Total Bilirubin 0.2 (0.0-1.0) mg/dL Direct Bilirubin < 0.2 (0.0-0.5) mg/dL AST 13 (5-31) U/L ALT 11 (0-31) U/L Alkaline Phosphatase 46 (39-117) U/L Ammonia (13-55) umol/L Troponin I High Sens (<3.5-17.0) ng/L Total Protein 5.9 L (6.5-8.0) g/dL Albumin 3.5 (3.5-5.0) g/dL Lipase 22 (8-78) U/L Urine Color Dark Yellow Urine Appearance Cloudy Urine pH 5.0 (5.0-9.0) Ur Specific [place] >= 1.030 H (1.005-1.025) Urine Protein Negative (Neg-Trace) mg/dL Urine Glucose (UA) Negative (Negative) mg/dL Urine Ketones Trace (Negative) mg/dL Urine Blood Negative (Negative) Urine Nitrite Negative (Negative) Ur Leukocyte Esterase Moderate (2+) H (Negative) Urine RBC 0-2 (0-2) /HPF Urine WBC 11-20 H (0-5) /HPF Ur Squamous Epith Cells 6-10 (0-2) /HPF Urine Bacteria 3+ (None Seen) Hyaline Casts 3-5 (0-2) /LPF Ur Random Sodium 56.0 mmol/L Urine Creatinine 320.20 mg/dL Urine Opiates Screen POSITIVE H (Not Detect) Urine Fentanyl Screen Not Detected (Not Detect) Ur Barbiturates Screen Not Detected (Not Detect) Valproic Acid (50.0-100.0) mcg/mL Ur Phencyclidine Scrn Not Detected (Not Detect) Ur Amphetamines Screen Not Detected (Not Detect) U Benzodiazepines Scrn Not Detected (Not Detect) Urine Cocaine Screen Not Detected (Not Detect) U Marijuana (THC) Screen Not Detected (Not Detect) Ethyl Alcohol < 10 mg/dL Influenza Type A (PCR) (Negative) Influenza Type B (PCR) (Negative) RSV RNA Qual (PCR) (Negative) SARS-CoV-2 RNA (RT-PCR) (Negative) 09/21/23 09/21/23 09/21/23 Range/Units 12:45 12:46 13:02 WBC (4.8-10.8) X10*3/uL RBC (4.20-5.50) X10*6/uL Hgb (12.0-16.0) g/dl Hct (37.0-47.0) % MCV (80.0-98.0) fL MCH (27.0-33.0) pg MCHC (31.0-35.0) g/dl RDW (11.0-16.0) % Plt Count (160-400) X10*3/uL MPV (9.4-12.3) fL Immature Gran % (Auto) (0.0-0.4) % Neut % (Auto) (45-73) % Lymph % (Auto) (20-40) % [place] % (Auto) (2-11) % Eos % (Auto) (0-4) % Baso % (Auto) (0-2) % Lymph # (Auto) (1.2-4.9) X10*3/uL [place] # (Auto) (0.1-1.2) X10*3/uL Eos # (Auto) (0.0-0.4) X10*3/uL Baso # (Auto) (0.0-0.2) X10*3/uL Abs Immat Gran (auto) (0.00-0.03) X10*3/uL Absolute Neuts (auto) (2.0-8.3) x10*3/uL Absolute Nucleated RBC (0.0-0.012) X10*3/uL Nucleated RBC % (auto) (0.0-0.2) /100WBC Hold Purple Top PT (11.1-13.3) SEC INR (0.9-1.1) APTT (26.0-36.8) SEC D-Dimer High Sensitivty NG/ML Hold Blue Top VBG pH 7.40 (7.32-7.43) VBG pCO2 47 mmHg VBG pO2 81 mmHg VBG HCO3 29 H (22-26) mmol/L VBG O2 Saturation 97.0 % VBG Base Excess 4.2 mmol/L Sodium (135-145) mmol/L Potassium (3.3-5.1) mmol/L Chloride (96-108) mmol/L Carbon Dioxide (22-29) mmol/L Anion Gap (12-20) BUN (9-16) mg/dL Creatinine (0.5-1.4) mg/dL Estim Creat Clear Calc Estimated GFR Random Glucose (60-115) mg/dL Lactic Acid (0.5-2.0) mmol/L Calcium (8.4-10.2) mg/dL Magnesium (1.6-2.6) mg/dL Total Bilirubin (0.0-1.0) mg/dL Direct Bilirubin (0.0-0.5) mg/dL AST (5-31) U/L ALT (0-31) U/L Alkaline Phosphatase (39-117) U/L Ammonia 37 (13-55) umol/L Troponin I High Sens < 2.7 (<3.5-17.0) ng/L Total Protein (6.5-8.0) g/dL Albumin (3.5-5.0) g/dL Lipase (8-78) U/L Urine Color Urine Appearance Urine pH (5.0-9.0) Ur Specific [place] (1.005-1.025) Urine Protein (Neg-Trace) mg/dL Urine Glucose (UA) (Negative) mg/dL Urine Ketones (Negative) mg/dL Urine Blood (Negative) Urine Nitrite (Negative) Ur Leukocyte Esterase (Negative) Urine RBC (0-2) /HPF Urine WBC (0-5) /HPF Ur Squamous Epith Cells (0-2) /HPF Urine Bacteria (None Seen) Hyaline Casts (0-2) /LPF Ur Random Sodium mmol/L Urine Creatinine mg/dL Urine Opiates Screen (Not Detect) Urine Fentanyl Screen (Not Detect) Ur Barbiturates Screen (Not Detect) Valproic Acid 65.2 (50.0-100.0) mcg/mL Ur Phencyclidine Scrn (Not Detect) Ur Amphetamines Screen (Not Detect) U Benzodiazepines Scrn (Not Detect) Urine Cocaine Screen (Not Detect) U Marijuana (THC) Screen (Not Detect) Ethyl Alcohol mg/dL Influenza Type A (PCR) NEGATIVE (Negative) Influenza Type B (PCR) NEGATIVE (Negative) RSV RNA Qual (PCR) NEGATIVE (Negative) SARS-CoV-2 RNA (RT-PCR) NEGATIVE (Negative) 09/21/23 09/21/23 Range/Units 17:20 17:45 WBC (4.8-10.8) X10*3/uL RBC (4.20-5.50) X10*6/uL Hgb (12.0-16.0) g/dl Hct (37.0-47.0) % MCV (80.0-98.0) fL MCH (27.0-33.0) pg MCHC (31.0-35.0) g/dl RDW (11.0-16.0) % Plt Count (160-400) X10*3/uL MPV (9.4-12.3) fL Immature Gran % (Auto) (0.0-0.4) % Neut % (Auto) (45-73) % Lymph % (Auto) (20-40) % [place] % (Auto) (2-11) % Eos % (Auto) (0-4) % Baso % (Auto) (0-2) % Lymph # (Auto) (1.2-4.9) X10*3/uL [place] # (Auto) (0.1-1.2) X10*3/uL Eos # (Auto) (0.0-0.4) X10*3/uL Baso # (Auto) (0.0-0.2) X10*3/uL Abs Immat Gran (auto) (0.00-0.03) X10*3/uL Absolute Neuts (auto) (2.0-8.3) x10*3/uL Absolute Nucleated RBC (0.0-0.012) X10*3/uL Nucleated RBC % (auto) (0.0-0.2) /100WBC Hold Purple Top SEE NOTE PT (11.1-13.3) SEC INR (0.9-1.1) APTT (26.0-36.8) SEC D-Dimer High Sensitivty NG/ML Hold Blue Top SEE NOTE VBG pH (7.32-7.43) VBG pCO2 mmHg VBG pO2 mmHg VBG HCO3 (22-26) mmol/L VBG O2 Saturation % VBG Base Excess mmol/L Sodium 142 (135-145) mmol/L Potassium 5.1 (3.3-5.1) mmol/L Chloride 108 (96-108) mmol/L Carbon Dioxide 30 H (22-29) mmol/L Anion Gap 9 L (12-20) BUN 29 H (9-16) mg/dL Creatinine 1.67 H (0.5-1.4) mg/dL Estim Creat Clear Calc 47.5 Estimated GFR 33 Random Glucose 114 (60-115) mg/dL Lactic Acid (0.5-2.0) mmol/L Calcium 8.9 (8.4-10.2) mg/dL Magnesium (1.6-2.6) mg/dL Total Bilirubin (0.0-1.0) mg/dL Direct Bilirubin (0.0-0.5) mg/dL AST (5-31) U/L ALT (0-31) U/L Alkaline Phosphatase (39-117) U/L Ammonia (13-55) umol/L Troponin I High Sens < 2.7 (<3.5-17.0) ng/L Total Protein (6.5-8.0) g/dL Albumin (3.5-5.0) g/dL Lipase (8-78) U/L Urine Color Urine Appearance Urine pH (5.0-9.0) Ur Specific [place] (1.005-1.025) Urine Protein (Neg-Trace) mg/dL Urine Glucose (UA) (Negative) mg/dL Urine Ketones (Negative) mg/dL Urine Blood (Negative) Urine Nitrite (Negative) Ur Leukocyte Esterase (Negative) Urine RBC (0-2) /HPF Urine WBC (0-5) /HPF Ur Squamous Epith Cells (0-2) /HPF Urine Bacteria (None Seen) Hyaline Casts (0-2) /LPF Ur Random Sodium mmol/L Urine Creatinine mg/dL Urine Opiates Screen (Not Detect) Urine Fentanyl Screen (Not Detect) Ur Barbiturates Screen (Not Detect) Valproic Acid (50.0-100.0) mcg/mL Ur Phencyclidine Scrn (Not Detect) Ur Amphetamines Screen (Not Detect) U Benzodiazepines Scrn (Not Detect) Urine Cocaine Screen (Not Detect) U Marijuana (THC) Screen (Not Detect) Ethyl Alcohol mg/dL Influenza Type A (PCR) (Negative) Influenza Type B (PCR) (Negative) RSV RNA Qual (PCR) (Negative) SARS-CoV-2 RNA (RT-PCR) (Negative) Independent Interpretation I performed an independent interpretation of an: EKG Interpretation: EKG normal sinus rhythm with sinus arrhythmia noted. T-wave inversion noted in V1-V4, this is seen on previous EKGs, most recent on August 27, 2023. Radiology Impression Discussion of test interpretation with radiology: I have reviewed the radiologist's reading. Radiologist Impression: EXAMINATION: CT ABDOMEN AND PELVIS WITHOUT CONTRAST CLINICAL INFORMATION: Acute renal insufficiency. Flank pain. COMPARISON: 07/26/2019 TECHNIQUE: Multidetector volumetric imaging was performed from the superior aspect of the liver through the pubic symphysis. Sagittal and coronal reformatted images were obtained on the technologist's workstation. This CT examination was performed using dose optimization techniques as appropriate, variously including the following: *Automated exposure control *Adjustment of mA and/or kV according to patient size (this includes techniques or standardized protocols for targeted exams where dose is matched to indication/reason for exam; i.e. extremities or head) *Use of iterative reconstruction technique DLP: 785 mGy-cm FINDINGS: LUNG BASES: Bibasilar atelectasis. Small hiatal hernia. LIVER, GALLBLADDER, AND BILIARY TREE: The noncontrast liver is normal in size and contour. Postcholecystectomy changes of the biliary ductal system similar to prior. The gallbladder is surgically absent. PANCREAS: Unremarkable. SPLEEN: Unremarkable. ADRENAL GLANDS: Unremarkable. KIDNEYS AND URETERS: The kidneys are normal in size, shape, and attenuation. No obstructing calculus. No hydronephrosis. No perinephric stranding. BLADDER: Underdistended. GASTROINTESTINAL TRACT: Small and large bowel loops are of normal caliber. No small bowel obstruction. Fecal retention in the colon. Appendix is within normal limits. ABDOMINAL WALL: No significant hernia is appreciated. LYMPH NODES: Few subcentimeter mesenteric lymph nodes. VASCULAR: Normal caliber abdominal aorta. PELVIC VISCERA: Uterus is surgically absent. Surgical clips in the presacral space. OSSEOUS STRUCTURES: No destructive bone lesions CT/CT abdomen pelvis wo IV con IMPRESSION: Possible 3 mm nonobstructing calculus in the distal right ureter. No hydronephrosis. Constipation. Dictated By: Marii Neal MD Signed By: <Electronically sign EXAMINATION: CT HEAD WITHOUT CONTRAST CLINICAL INFORMATION: Confusion. COMPARISON: 08/27/2023. TECHNIQUE: Contiguous axial imaging was performed from the skull base to vertex without intravenous administration of contrast. This CT examination was performed using dose optimization techniques as appropriate, variously including the following: *Automated exposure control *Adjustment of mA and/or kV according to patient size (this includes techniques or standardized protocols for targeted exams where dose is matched to indication/reason for exam; i.e. extremities or head) *Use of iterative reconstruction technique DLP: 632 mGy-cm FINDINGS: The brain parenchyma has normal attenuation. The lucero-white matter differentiation is well preserved. No evidence of an acute major vascular territory infarction. No intracranial hemorrhage, extra-axial fluid collection, focal mass effect or midline shift. The ventricles have normal size and configuration; no hydrocephalus. The brainstem and cerebellum have a normal appearance. The cerebellar tonsils are in normal position. The calvarium is intact. The visualized paranasal sinuses, mastoid air cells and middle ear cavities are well aerated. The orbits and globes are unremarkable. 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 CT/CT head/brain wo IV con IMPRESSION: No evidence of intracranial mass, hemorrhage or infarction. No acute intracranial pathology compared to 08/27/2023 Dictated By: Tc Dunham MD EXAMINATION: XR CHEST CLINICAL INFORMATION: Shortness of breath. COMPARISON: 08/27/2023 TECHNIQUE: Frontal view of the chest was obtained. FINDINGS: Evaluation is limited by patient positioning. Low lung volumes. No focal consolidation. No pleural effusion. Cardiac silhouette is unchanged. XR/XR chest 1V IMPRESSION: No acute abnormality. Dictated By: Marii Neal MD Discharge Plan Discharge Clinical Impression: Hypoxia, ABDIRAHMAN (acute kidney injury) Patient Disposition: Admitted As Inpatient
--- NOTE | 2023-09-21 11:44 | ECG_ITS ---
Test Reason : DYSPNEA Blood Pressure : / mmHG Vent. Rate : 073 BPM Atrial Rate : 073 BPM P-R Int : 168 ms QRS Dur : 084 ms QT Int : 366 ms P-R-T Axes : 053 038 035 degrees QTc Int : 403 ms Normal sinus rhythm with sinus arrhythmia T wave abnormality, consider anterior ischemia Abnormal ECG When compared with ECG of 27-AUG-2023 12:34, No significant change was found Referred By: Anai Rucker Electronically Signed By:BRENT LEMOS MD
[2023-09-21 12:09] LABS: Appearance Urine Cloudy; Color Urine Dark Yellow; Glucose Urine UA Negative (Negative); Leukocyte Esterase Urine Moderate (2+) (Negative); Nitrite Urine Negative (Negative); Specific Gravity - Urine >= 1.030 (1.005-1.025); UMIC TRIGGER UACC YES; Urine Blood Negative (Negative); Urine Ketones Trace mg/dL (Negative); Urine Protein Negative (Neg-Trace)
[2023-09-21 12:12] LABS: Amphetamine Screen Urine Not Detected (Not Detect); Barbiturates, Urine Not Detected (Not Detect); Benzodiazepines Screen Urine Not Detected (Not Detect); Cannabinoid Screen Urine Not Detected (Not Detect); Cocaine Screen Urine Not Detected (Not Detect); Fentanyl, urine Not Detected (Not Detect); Opiate Screen Urine POSITIVE (Not Detect); Phencyclidine Screen Urine Not Detected (Not Detect)
[2023-09-21 12:32] LABS: Bacteria Urine 3+ (None Seen); RBC Urine 0-2 /HPF (0-2); UACC Culture Trigger YES
[2023-09-21 12:48] LABS: MANUAL DIFF FLAG NO
[2023-09-21 12:53] LABS: VBG Base Excess 4.2 mmol/L; VBG HCO3 29 mmol/L (22-26); VBG pCO2 47 mmHg; VBG pO2 81 mmHg
[2023-09-21 12:53] LABS: Venous Blood Gas Refer to POC result
[2023-09-21] MEDS: 0.9 % Sodium Chloride 1,000 ML 999 ML IV ×2 (12:53→14:08)
[2023-09-21 12:58] LABS: Lactic Acid 0.9 mmol/L (0.5-2.0)
[2023-09-21 13:00] LABS: Basophils Percent Auto 0.5 % (0-2); Eosinophils Absolute Auto 0.1 X10*3/uL (0.0-0.4); Eosinophils Percent Auto 1.3 % (0-4); Hematocrit 38.4 % (37.0-47.0); Hemoglobin 12.5 g/dl (12.0-16.0); Lymphocytes Absolute Auto 1.7 X10*3/uL (1.2-4.9); Lymphocytes Percent Auto 44.6 % (20-40); Mean Corpuscular HGB Conc 32.6 g/dl (31.0-35.0); Mean Corpuscular Hemoglobin 27.7 pg (27.0-33.0); Mean Platelet Volume 10.8 fL (9.4-12.3); Monocytes Absolute Auto 0.4 X10*3/uL (0.1-1.2); Monocytes Percent Auto 9.4 % (2-11); Neutrophils Absolute Auto 1.6 x10*3/uL (2.0-8.3); Neutrophils Percent Auto 44.2 % (45-73); Platelet Count 114 X10*3/uL (160-400); Red Blood Count 4.52 X10*6/uL (4.20-5.50); Red Cell Distribution Width 13.9 % (11.0-16.0); White Blood Count 3.7 X10*3/uL (4.8-10.8)
[2023-09-21 13:04] LABS: Alanine Aminotransferase 11 U/L (0-31); Albumin Level 3.5 g/dL (3.5-5.0); Alkaline Phosphatase 46 U/L (39-117); Anion Gap 13 (12-20); Aspartate Amino Transferase 13 U/L (5-31); Bilirubin Direct < 0.2 mg/dL (0.0-0.5); Bilirubin Total 0.2 mg/dL (0.0-1.0); Blood Urea Nitrogen 32 mg/dL (9-16); Calcium 9.4 mg/dL (8.4-10.2); Carbon Dioxide 28 mmol/L (22-29); Chloride 104 mmol/L (96-108); Creatinine Clr Calc Pharmacy 38.8; Estimated Glomerular Filt Rate 26; Glucose Random 85 mg/dL (60-115); Lipase 22 U/L (8-78); Magnesium 1.8 mg/dL (1.6-2.6); Potassium 4.5 mmol/L (3.3-5.1); Sodium 140 mmol/L (135-145); Total Protein 5.9 g/dL (6.5-8.0)
[2023-09-21 13:05] LABS: Ammonia 37 umol/L (13-55)
[2023-09-21 13:06] LABS: Ethanol < 10 mg/dL
[2023-09-21 13:20] LABS: D Dimer High Sensitivity 423 NG/ML; Partial Thromboplastin Time 30.9 SEC (26.0-36.8)
[2023-09-21 13:22] LABS: Valproate 65.2 mcg/mL (50.0-100.0)
[2023-09-21 13:40] LABS: Troponin-I High Sensitivity < 2.7 ng/L (<3.5-17.0)
--- NOTE | 2023-09-21 13:48 | PC.NURSE ---
Patient admitted w/ AMS / ?word finding drowsy but arousable in bed, maintaining good O2 sat with 1.5L NC, occassionally removing O2 noted to desat to mid 80's when sleeping. Patient intermittently restless, currently asking to eat. 1L NS running
[2023-09-21 14:11] LABS: Influenza A PCR NEGATIVE (Negative); Influenza B PCR NEGATIVE (Negative); Resp Syncy Virus RNA Qual PCR NEGATIVE (Negative); SARS COV2 PCR INHOUSE NEGATIVE (Negative)
--- NOTE | 2023-09-21 14:30 | PC.NURSE ---
Second liter of NS hung, patient given snacks to eat, no issues at this time.
[2023-09-21 17:47] LABS: Anion Gap 9 (12-20); Blood Urea Nitrogen 29 mg/dL (9-16); Calcium 8.9 mg/dL (8.4-10.2); Carbon Dioxide 30 mmol/L (22-29); Chloride 108 mmol/L (96-108); Creatinine Clr Calc Pharmacy 47.5; Estimated Glomerular Filt Rate 33; Glucose Random 114 mg/dL (60-115); Potassium 5.1 mmol/L (3.3-5.1); Sodium 142 mmol/L (135-145)
[2023-09-21 17:57] LABS: Troponin-I High Sensitivity < 2.7 ng/L (<3.5-17.0)
--- NOTE | 2023-09-21 18:00 | PC.NURSE ---
ADDITIONAL PIV PLACED FOR CT ANGIO CONTRAST, #22 IN L UPPER ARM. IV WAS PATENT, EASILY FLUSHED, THOUGH COULD NOT TOLERATE CONTRAST ADMINISTRATION. SENIOR WEALTH ADVISOR AWARE.
[2023-09-21] MEDS: cefTRIAXone sodium 1 GM in 0.9 % Sodium Chloride 50 ML IV (19:12)
--- NOTE | 2023-09-21 20:14 | PC.NURSE ---
PT REMOVED FROM SUPP O2, SPO2 87-94% ON RA.
--- NOTE | 2023-09-21 20:38 | PHA.MEDREC ---
Pharmacy Consult ? Medication Reconciliation Pharmacy has completed the medication reconciliation. Patient's mom confirmed all medications. Reported divaloproex dose as 500 mg daily and 750 mg at bedtime. Reported no longer using mirtazepine at night. Report patient uses excedrin instead of sumatriptan. Lila Zhu, PharmD
--- NOTE | 2023-09-21 20:40 | PHA.MEDREC ---
Pharmacy Consult ? Medication Reconciliation Pharmacy has completed the medication reconciliation. Patient's mom confirmed all medications. Reported divaloproex dose as 500 mg daily and 750 mg at bedtime. Reported no longer using mirtazepine at night. Report patient uses excedrin instead of sumatriptan. Patient get methadone from [facility], dose will need to be verified by RN. Lila Zhu, JagdishD
--- NOTE | 2023-09-21 22:30 | PM.IMHP ---
History of Present Illness Date of Service: 09/21/23 Attending physician on admission: Eddie Grigsby Chief Complaint: feeling unwell 48-year-old female, with a history of seizure disorder, asthma, opiate use disorder, and recent left ankle surgery presenting to the emergency department, via EMS, with complaints of not feeling well. Per EMS, family is concerned due to increased disorientation, confusion. She has a history of polysubstance abuse however family reports that they are cameras and all opiates or locked up, and she has not had any recent visitors, however family concern for possible ingestion of opiates. Pt denies any ongoing substance use, last use 3 years ago (cocaine). Reports she continues experiencing petit mal seizures at least twice weekly (follows with Dr. Mann) with reported post ictal states where she is lethargic and disoriented. She states she had a seizure 2 months ago resulting in a fall and sustained multiple fractures LLE s/p ORIF. Has been experiencing signficant difficulty sleeping due to the pain. Reports vaping marijuana, but no other substance use including cigarettes or alcohol. Per ED provider, patient was lethargic/somnolent with pinpoint pupils. Similar to prior presentations. On arrival, VSS. Was found to be hypxoci to 86% but was weaned from supplemental O2 now maintaining oximetry 97-98%. There has been a question of hypoventilation syndrome with history of intermittent hypoxia. She has a chronic leukopenia, stable at 3.7. Initial creat 2, improved to 1.67 with IVF. Lytes WNL except CO2 30. Lactic acid 0.9. Ammonia 37. Trop below detectable limits. DDimer 423 (chronically elevated, baseline). VBG ph 7.40, pCO2 47, bicarb 29. UA with 2+ leukocytes, negative nitrites, +sediment, +squamous cells, 3+ bacteria. UTox positive for opiates. Negative flu, covid 19, rsv. CXR negative. Head CT negative for any acute intracranial abnormality. CT abdomen/pelvis shows possible 3 mm nonobstructing calculus in the right distal ureter but no hydronephrosis. In the ED, given 1L IV NS and 1g IV ctx. Review of Systems Review of Systems: General: No fevers, malaise, unintentional weight loss HEENT: No blurred vision, diplopia. No sore throat, nasal congestion, rhinorrhea, sinus pain, ear pain Cardiovascular: No chest pain, palpitations, or leg edema Respiratory: No shortness of breath, wheezing, cough GI: No abdominal pain, nausea, vomiting, diarrhea, constipation, melena, hematochezia : No dysuria, hematuria, increased urinary frequency, decreased urinary output MSK: No myalgia, back pain. +pain LLE Neuro: No headaches, weakness, paresthesias. +disorientation, +seizure Skin: No rashes or lesions [facility] Medical History Clavicle fracture Narcotic abuse Seizures Asthma COPD (chronic obstructive pulmonary disease) Surgical History History of ankle surgery (08/05/23) H/O right knee surgery H/O left knee surgery Social History Household Members: Unknown / Unable to assess Household Members Other:: pt refused to respond Housing: House Do you presently have visiting nurse or other home services: No Alcohol intake: unknown Patient Tobacco Use Status: Tobacco use Unknown Tobacco use type: Smokeless Tobacco Smoked in Last 30 Days: No Second Hand Smoke Exposure: No Use of substances other than those prescribed or required for medical reasons: No Substance Use Type: Crack/Cocaine and Opiates Advance Directives: Yes Advance Directives on File: Yes Advance Directives Date on File: 07/31/23 Nutrition Risks: No Nutritional Risk Patient : No service: No Meds Allergies Allergy/AdvReac Type Severity Reaction Status Date / Time amoxicillin [AMOXICILLIN] Allergy Intermediate RASH Verified 09/03/23 09:19 Penicillins [PENICILLINS] Allergy Intermediate RASH Verified 09/03/23 09:19 Active Medications: Current Medications Acetaminophen (Acetaminophen 325 Mg Tablet) 650 mg PO Q6H PRN PRN Reason: Pain, Mild (Pain Scale 1-3) Enoxaparin Sodium (Enoxaparin Sodium 40 Mg/0.4 Ml Syringe) 40 mg SUBCUT Q24H MELISSA Ondansetron HCl (Ondansetron Hcl 4 Mg/2 Ml Vial) 4 mg IVPUSH Q8H PRN PRN Reason: Nausea and Vomiting Senna (Sennosides 8.6 Mg Tablet) 17.2 mg PO BEDTIME PRN PRN Reason: Constipation Sodium Chloride (0.9 % Sodium Chloride Flush 3 Ml Syringe) 3 ml IVFLUSH QSHIFT [facility] Home Medications Medication Instructions Recorded Confirmed Last Taken Type divalproex 250 mg tablet,delayed 750 mg PO BEDTIME 07/31/23 09/21/23 09/20/23 History release divalproex 500 mg tablet,delayed 500 mg PO DAILY 07/31/23 09/21/23 09/21/23 History release hydroxyzine HCl 25 mg tablet 25 mg PO BID PRN Anxiety 07/31/23 09/21/23 Unknown History indomethacin 50 mg capsule 50 mg PO BID 07/31/23 09/21/23 09/21/23 History methadone 10 mg/mL oral 120 mg PO DAILY@0900 07/31/23 08/28/23 08/27/23 History concentrate (Methadone Intensol) mometasone-formoterol HFA 100 2 puff inhalation BID 07/31/23 09/21/23 09/21/23 History mcg-5 mcg/actuation aerosol inhaler (Dulera) trazodone 50 mg tablet 100 mg PO BEDTIME 07/31/23 09/21/23 09/20/23 History xjjwtlx-lvjptpsdyrzgw-ippsedrm 250 2 tab PO Q6H PRN Migraine Headache 09/21/23 09/21/23 Unknown History mg-250 mg-65 mg tablet (Excedrin Extra Strength) oxycodone 5 mg tablet 5 mg PO Q6H PRN pain 09/21/23 09/21/23 Unknown History Physical Exam Vital Signs and Narrative: Vital Signs: Last Vital Signs Temp 98.6 F 09/21/23 21:03 Pulse 58 09/21/23 21:03 Resp 20 09/21/23 21:03 BP 115/58 L 09/21/23 21:03 Pulse Ox 98 09/21/23 21:03 O2 Del Method Room Air 09/21/23 21:03 O2 Flow Rate 1.5 09/21/23 13:58 BMI result Body Mass Index 24.5 Constitutional - Awake and Alert, No apparent distress Eyes - PERRLA, EOMI Cardiovascular - S1S2, RRR, No edema Respiratory - Normal lung expansion, Normal respiratory effort, No respiratory distress, CTA bilaterally Gastrointestinal - NT / ND; +BS; No rebound or guarding Extremities - no calf tenderness bilaterally, no swelling Musculoskeletal - LLE immobilizaed in cast Skin - Warm/Dry Neurological - Alert & oriented x3, CN II-XII in tact, sensation in tact Psychological - Appropriate affect Results Labs 09/21/23 12:38 09/21/23 17:20 Labs: Laboratory Results - last 24 hr 09/21/23 09/21/23 09/21/23 11:55 12:38 12:40 MCV 85.0 MCH 27.7 MCHC 32.6 RDW 13.9 Plt Count 114 L D MPV 10.8 Immature Gran % (Auto) 0.0 Neut % (Auto) 44.2 L Lymph % (Auto) 44.6 H [place] % (Auto) 9.4 Eos % (Auto) 1.3 Baso % (Auto) 0.5 Lymph # (Auto) 1.7 [place] # (Auto) 0.4 Eos # (Auto) 0.1 Baso # (Auto) 0.0 Abs Immat Gran (auto) 0.00 Absolute Neuts (auto) 1.6 L Absolute Nucleated RBC 0.000 Nucleated RBC % (auto) 0.0 Hold Purple Top PT 12.0 INR 1.0 APTT 30.9 D-Dimer High Sensitivty 423 Hold Blue Top VBG pH VBG pCO2 VBG pO2 VBG HCO3 VBG O2 Saturation VBG Base Excess Anion Gap 13 Estim Creat Clear Calc 38.8 Estimated GFR 26 Random Glucose 85 Lactic Acid 0.9 Calcium 9.4 Magnesium 1.8 Total Bilirubin 0.2 Direct Bilirubin < 0.2 AST 13 ALT 11 Alkaline Phosphatase 46 Ammonia Troponin I High Sens Total Protein 5.9 L Albumin 3.5 Lipase 22 Urine Color Dark Yellow Urine Appearance Cloudy Urine pH 5.0 Ur Specific [place] >= 1.030 H Urine Protein Negative Urine Glucose (UA) Negative Urine Ketones Trace Urine Blood Negative Urine Nitrite Negative Ur Leukocyte Esterase Moderate (2+) H Urine RBC 0-2 Urine WBC 11-20 H Ur Squamous Epith Cells 6-10 Urine Bacteria 3+ Hyaline Casts 3-5 Urine Opiates Screen POSITIVE H Urine Fentanyl Screen Not Detected Ur Barbiturates Screen Not Detected Valproic Acid Ur Phencyclidine Scrn Not Detected Ur Amphetamines Screen Not Detected U Benzodiazepines Scrn Not Detected Urine Cocaine Screen Not Detected U Marijuana (THC) Screen Not Detected Ethyl Alcohol < 10 Influenza Type A (PCR) Influenza Type B (PCR) RSV RNA Qual (PCR) SARS-CoV-2 RNA (RT-PCR) 09/21/23 09/21/23 09/21/23 12:45 12:46 13:02 MCV MCH MCHC RDW Plt Count MPV Immature Gran % (Auto) Neut % (Auto) Lymph % (Auto) [place] % (Auto) Eos % (Auto) Baso % (Auto) Lymph # (Auto) [place] # (Auto) Eos # (Auto) Baso # (Auto) Abs Immat Gran (auto) Absolute Neuts (auto) Absolute Nucleated RBC Nucleated RBC % (auto) Hold Purple Top PT INR APTT D-Dimer High Sensitivty Hold Blue Top VBG pH 7.40 VBG pCO2 47 VBG pO2 81 VBG HCO3 29 H VBG O2 Saturation 97.0 VBG Base Excess 4.2 Anion Gap Estim Creat Clear Calc Estimated GFR Random Glucose Lactic Acid Calcium Magnesium Total Bilirubin Direct Bilirubin AST ALT Alkaline Phosphatase Ammonia 37 Troponin I High Sens < 2.7 Total Protein Albumin Lipase Urine Color Urine Appearance Urine pH Ur Specific [place] Urine Protein Urine Glucose (UA) Urine Ketones Urine Blood Urine Nitrite Ur Leukocyte Esterase Urine RBC Urine WBC Ur Squamous Epith Cells Urine Bacteria Hyaline Casts Urine Opiates Screen Urine Fentanyl Screen Ur Barbiturates Screen Valproic Acid 65.2 Ur Phencyclidine Scrn Ur Amphetamines Screen U Benzodiazepines Scrn Urine Cocaine Screen U Marijuana (THC) Screen Ethyl Alcohol Influenza Type A (PCR) NEGATIVE Influenza Type B (PCR) NEGATIVE RSV RNA Qual (PCR) NEGATIVE SARS-CoV-2 RNA (RT-PCR) NEGATIVE 09/21/23 09/21/23 17:20 17:45 MCV MCH MCHC RDW Plt Count MPV Immature Gran % (Auto) Neut % (Auto) Lymph % (Auto) [place] % (Auto) Eos % (Auto) Baso % (Auto) Lymph # (Auto) [place] # (Auto) Eos # (Auto) Baso # (Auto) Abs Immat Gran (auto) Absolute Neuts (auto) Absolute Nucleated RBC Nucleated RBC % (auto) Hold Purple Top SEE NOTE PT INR APTT D-Dimer High Sensitivty Hold Blue Top SEE NOTE VBG pH VBG pCO2 VBG pO2 VBG HCO3 VBG O2 Saturation VBG Base Excess Anion Gap 9 L Estim Creat Clear Calc 47.5 Estimated GFR 33 Random Glucose 114 Lactic Acid Calcium 8.9 Magnesium Total Bilirubin Direct Bilirubin AST ALT Alkaline Phosphatase Ammonia Troponin I High Sens < 2.7 Total Protein Albumin Lipase Urine Color Urine Appearance Urine pH Ur Specific [place] Urine Protein Urine Glucose (UA) Urine Ketones Urine Blood Urine Nitrite Ur Leukocyte Esterase Urine RBC Urine WBC Ur Squamous Epith Cells Urine Bacteria Hyaline Casts Urine Opiates Screen Urine Fentanyl Screen Ur Barbiturates Screen Valproic Acid Ur Phencyclidine Scrn Ur Amphetamines Screen U Benzodiazepines Scrn Urine Cocaine Screen U Marijuana (THC) Screen Ethyl Alcohol Influenza Type A (PCR) Influenza Type B (PCR) RSV RNA Qual (PCR) SARS-CoV-2 RNA (RT-PCR) Imaging Radiologist's Impressions: Impressions Chest X-Ray 09/21/23 12:06 IMPRESSION: No acute abnormality. Head CT 09/21/23 12:12 IMPRESSION: No evidence of intracranial mass, hemorrhage or infarction. No acute intracranial pathology compared to 08/27/2023 Abdomen/Pelvis CT 09/21/23 14:46 IMPRESSION: Possible 3 mm nonobstructing calculus in the distal right ureter. No hydronephrosis. Constipation. Assessment and Plan (1) ABDIRAHMAN (acute kidney injury): Status: Acute (2) Encephalopathy: Status: Resolved Plan 48-year-old female, with a history of seizure disorder, asthma, opiate use disorder, and recent left ankle surgery admitted for ABDIRAHMAN and possible breakthrough seizure activity #Acute kidney injury- likely due to decreased po intake and nsaid use -urine studies pending -creat 2 -->1.67 (baseline 0.8) -ct abd/pelvis negative for obstruction -Continue IVF -avoid nephrotoxins, hold indomethacin -follow renal function/lytes #Acute metabolic encephaloapthy- resolved on admission -?r/t breakthrough seizures (pt reports 2 petit mal seizures weekly) vs due to hypoxia from hypoventilation -no medication misuse- narcotics in lock box and on camera and no visitors in home per patient's family -head ct negative for acute intracranial abnormality. Ammonia level normal. VBG reassuring, no hypercapnia. Less likely infection (asymptomatic bacteriuria) -neuro consult, eeg -monitor mentation #Petit mal seizure disorder -continue keppra, depakote -seizure precautions -neuro consult, eeg as above #fracture left medial malleolus/fibula s/p ORIF 1/23/24 with routine healing -continue oxycodone prn, hold indomethacin #Unspecified asthma -no acute exacerbation -continue dulera, albuterol prn #Opioid dependence -continue methadone DVt prophyalxis- lovenox Full code Pt requires inpt stay at least 2 midnights for management of ABDIRAHMAN on IVF requiring close monitoring of renal function/lytes. Quality Stroke Does the patient have a stroke diagnosis?: No VTE Prior VTE?: No VTE Risk Level:: Medical - moderate - high VTE Device Contraindication: Treatment Not Indicated VTE Drug Contraindication: N/A - Med Ordered
[2023-09-21] MEDS: Divalproex Sodium 250 MG TABLET.DR 750 MG PO (22:44)
[2023-09-21] MEDS: levETIRAcetam 500 MG TABLET PO (22:44)
[2023-09-21] MEDS: Enoxaparin Sodium 40 MG/0.4 ML SYRINGE SUBCUT (22:44)
[2023-09-21] MEDS: traZODone HCL 100 MG TABLET PO (22:44)
[2023-09-21] MEDS: oxyCODONE HCl Immed Release 5 MG TABLET PO (22:53)
[2023-09-21] MEDS: 0.9 % Sodium Chloride 1,000 ML 100 ML IVCONT (22:54)
[2023-09-22] VITALS (15 sets, daily range): BP systolic 92–126; BP diastolic 47–65; PULSE 31–54; RESP 8–20; TEMP 36.1–36.7; O2SAT 93–99
--- NOTE | 2023-09-22 | ECG_ITS ---
Test Reason : BRADYCARDIA Blood Pressure : / mmHG Vent. Rate : 042 BPM Atrial Rate : 042 BPM P-R Int : 190 ms QRS Dur : 096 ms QT Int : 494 ms P-R-T Axes : 070 053 063 degrees QTc Int : 412 ms Marked sinus bradycardia with sinus arrhythmia Nonspecific T wave abnormality Abnormal ECG When compared with ECG of 21-SEP-2023 12:26, Vent. rate has decreased BY 31 BPM Nonspecific T wave abnormality no longer evident in Inferior leads Nonspecific T wave abnormality has replaced inverted T waves in Anterior leads Referred By: Jake Grigsby Electronically Signed By:BRENT LEMOS MD
--- NOTE | 2023-09-22 00:34 | PC.NURSE ---
Heart rate noted to be in 40's. BP stable. Pt alert and easily arousable with heart rate improvement. [place] text sent to Dr. Grigsby who states as long as the BP is stable and pt is asymptomatic we should continue to monitor. Pt aware of plan of care.
--- NOTE | 2023-09-22 05:56 | PM.EVENT ---
Event Note Date of Service: 09/22/23 Event Note: Patient with marked sinus bradycardia overnight. No AV blocks sinus pause. Dropped down to the 30s. Will consult Cardiology Time Spent With Patient Time: Total time managing care of this patient today ____ minutes.
--- NOTE | 2023-09-22 08:30 | PC.NURSE ---
PT'S MOTHER NOAH CALLED AND WAS UPDATED ON PT STATUS. MOTHER STATES THAT PT IS NOT ALLERGIC TO NARCAN AND THIS RN ASKED PT FOR HER TO CONFIRM HER ALLERGIES AND PT STATES SHE IS ALLERGIC TO AMOXICILLIN AND PCN. PT DENIES BEING ALLERGIC TO NARCAN.
[2023-09-22] MEDS: levETIRAcetam 500 MG TABLET PO ×2 (08:32→21:20)
[2023-09-22] MEDS: Divalproex Sodium 500 MG TABLET.DR PO (08:32)
[2023-09-22] MEDS: 0.9 % Sodium Chloride Flush 3 ML SYRINGE IVFLUSH (08:32)
[2023-09-22] MEDS: Fluticasone/Vilanterol 100/25 BLST.W.DEV 1 PUFF INHALE (08:35)
--- NOTE | 2023-09-22 08:52 | PC.NURSE ---
PTT IS A/O X 4 NO SOB/ROBBIE NOTED SPEAKS IN FULL SENTENCES. LUNGS - DIMINSHED. PT HAS A CAST TO L LOWER EXT, +CMS NOTED.PT HAS 2 IV'S TO L ARM. PT AWARE OF PLAN OF CARE. WILL CONTINUE TO MONITOR.
--- NOTE | 2023-09-22 08:56 | PC.NURSE ---
PT'S MOTHER STATES THAT PT TAKES HER METHADONE DOSES IN AM AND PM BECAUSE IT WAS MAKING HER SO LETHARGIC WHICH WAS INITIATED 4 DAYS AGO. PT TAKES METHADONE 75MG IN AM AND METHADONE 70MG IN QPM. PT GETS HER METHADONE FROM [facility] ON [facility] [address]. WILL CONTINUE TO MONITOR.
--- NOTE | 2023-09-22 09:08 | PC.NURSE ---
DR. LEMOS AT BEDSIDE, PT AWARE OF PLAN OF CARE.
[2023-09-22] MEDS: oxyCODONE HCl Immed Release 5 MG TABLET PO ×3 (09:18→18:13)
[2023-09-22] MEDS: 0.9 % Sodium Chloride 1,000 ML 100 ML IVCONT (09:18)
[2023-09-22] MEDS: Acetaminophen 325 MG TABLET 650 MG PO ×2 (09:18→21:20)
--- NOTE | 2023-09-22 09:32 | PC.NURSE ---
PT/MOTHER AT BEDSIDE WITH DR. LEMOS. PT TO HAVE ECHOCARDIOGRAM LATER TODAY. PT/MOTEHR AWARE OF PLAN OF CARE.
--- NOTE | 2023-09-22 09:50 | PM.CNCAR ---
History of Present Illness History of Present Illness Date of Service: 09/22/23 Requesting physician: Eddie Grigsby Consult reason: other (Sinus bradycardia) Chief complaint: marino, seizure Narrative: I was consulted to see Chi in cardiology consultation today for sinus bradycardia overnight. 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 Over the last many years she has been having episodes of orthostatic lightheadedness although this was never diagnose. Over the last 2 years since she has stopped using she is noticing more and more orthostatic lightheaded episodes. About 2 months ago she had what appears to be a syncopal episode although she has also been labeled to have a seizure episode and has history of status epilepticus when she had COVID. She has been on medications to control her seizures. Her 2 months ago at around 21:00 the family heard a loud 3rd when they came they noticed that she was on the ground and she had fractured ankle, left which she had to undergo repair. This was serous injury. Ever since then she has been undergoing rehab at home and we and is been coming at home. The mother was present at bedside has noted several episodes where she when she is upright just slumps over. She is very pale at that time. She has not breathing. They told her to actually get her up and move around. Mother was noticed low oxygen level during these times. Yesterday when the occupational therapist was there she had a similar episode and notice that her systolic blood pressure was in the 70s and she had low oxygen. She was therefore rushed to the hospital. In the hospital she is noted to have acute kidney injury with creatinine up to 2 from the normal in the 0.8 range. She has been given IV fluids since yesterday. Overnight while on the monitor she was noted to have heart rate in the 30s upper 30s sinus bradycardia with sinus arrhythmia. Low-amplitude P waves. Ectopic atrial bradycardia can not be entirely ruled out. However at other times when she is awake and when I just set her up in the better heart rate went up to 80 beats per minute in sinus rhythm. A systolic blood pressure is in the 100 range. While she is lying down she says she has no symptoms usually she gets symptoms when she is upright or gets up. She denies any prolonged palpitations or irregular heartbeat. Denies any chest pain or shortness of breath. Review of Systems Constitutional: Constitutional: Reports weakness Eyes: Eyes: Reports no additional eye complaints Cardiovascular: Cardiovascular: Denies chest pain, Reports syncope, Denies leg edema, Reports lightheadedness, Reports Loss of Consciousness and Reports slow heart rate Respiratory: Respiratory: Reports no additional respiratory complaints Gastrointestinal: Gastrointestinal: Reports no additional gastrointestinal complaints Genitourinary: Genitourinary: Reports no additional female genitourinary complaints Musculoskeletal: Musculoskeletal: Reports no additional musculoskeletal complaints Integumentary/Breasts: Skin/Breast: Reports system reviewed and no additional complaints, except as docu Neurologic: Reports syncope, Reports seizure-like activity (Not this time) and Reports weakness Psychiatric: Psychiatric: Reports no additional psychiatric complaints Endocrine: Endocrine: Reports no additional endocrine complaints Hematologic/Lymphatic: Hematologic/Lymphatic: Reports no additional hematologic/lymphatic complaints Allergic/Immunologic: Allergic/Immunologic: Reports no additional allergic/immunologic complaints [facility] Past Medical History Medical History Clavicle fracture Narcotic abuse Seizures Asthma COPD (chronic obstructive pulmonary disease) Surgical History Surgical History History of ankle surgery (08/05/23) H/O right knee surgery H/O left knee surgery Social History Social History Household Members: Unknown / Unable to assess Household Members Other:: pt refused to respond Housing: House Do you presently have visiting nurse or other home services: No Alcohol intake: unknown Patient Tobacco Use Status: Tobacco use Unknown Tobacco use type: Smokeless Tobacco Smoked in Last 30 Days: No Second Hand Smoke Exposure: No Use of substances other than those prescribed or required for medical reasons: No Substance Use Type: Crack/Cocaine and Opiates Advance Directives: Yes Advance Directives on File: Yes Advance Directives Date on File: 07/31/23 Nutrition Risks: No Nutritional Risk Patient : No service: No Meds Allergies Allergy/AdvReac Type Severity Reaction Status Date / Time amoxicillin [AMOXICILLIN] Allergy Intermediate RASH Verified 09/03/23 09:19 Penicillins [PENICILLINS] Allergy Intermediate RASH Verified 09/03/23 09:19 Active Medications: Current Medications Acetaminophen (Acetaminophen 325 Mg Tablet) 650 mg PO Q6H PRN PRN Reason: Pain, Mild (Pain Scale 1-3) Last Admin: 09/22/23 09:18 Dose: 650 mg Divalproex Sodium (Divalproex Sodium 250 Mg Tablet.Dr) 750 mg PO BEDTIME [facility] Last Admin: 09/21/23 22:44 Dose: 750 mg Divalproex Sodium (Divalproex Sodium 500 Mg Tablet.Dr) 500 mg PO DAILY [facility] Last Admin: 09/22/23 08:32 Dose: 500 mg Enoxaparin Sodium (Enoxaparin Sodium 40 Mg/0.4 Ml Syringe) 40 mg SUBCUT Q24H [facility] Last Admin: 09/21/23 22:44 Dose: 40 mg Fluticasone/Vilanterol (Fluticasone/Vilanterol 100/25 Blst.W.Dev) 1 puff INHALE RDAILY [facility] Last Admin: 09/22/23 08:35 Dose: 1 puff Hydroxyzine HCl (Hydroxyzine Hcl 25 Mg Tablet) 25 mg PO BID PRN PRN Reason: Anxiety Sodium Chloride (Ns) 1,000 mls @ 100 mls/hr IVCONT .Q10H [facility] Last Admin: 09/22/23 09:18 Dose: 100 mls/hr Levetiracetam (Levetiracetam 500 Mg Tablet) 500 mg PO BID [facility] Last Admin: 09/22/23 08:32 Dose: 500 mg Ondansetron HCl (Ondansetron Hcl 4 Mg/2 Ml Vial) 4 mg IVPUSH Q8H PRN PRN Reason: Nausea and Vomiting Oxycodone HCl (Oxycodone Hcl Immed Release 5 Mg Tablet) 5 mg PO Q6H PRN PRN Reason: Pain, Severe (Pain Scale 7-10) Last Admin: 09/22/23 09:18 Dose: 5 mg Senna (Sennosides 8.6 Mg Tablet) 17.2 mg PO BEDTIME PRN PRN Reason: Constipation Sodium Chloride (0.9 % Sodium Chloride Flush 3 Ml Syringe) 3 ml IVFLUSH QSHIFT [facility] Last Admin: 09/22/23 08:32 Dose: 3 ml Trazodone HCl (Trazodone Hcl 100 Mg Tablet) 100 mg PO BEDTIME [facility] Last Admin: 09/21/23 22:44 Dose: 100 mg Home Medications Medication Instructions Recorded Confirmed Last Taken Type divalproex 250 mg tablet,delayed 750 mg PO BEDTIME 07/31/23 09/21/23 09/20/23 History release divalproex 500 mg tablet,delayed 500 mg PO DAILY 07/31/23 09/21/23 09/21/23 History release hydroxyzine HCl 25 mg tablet 25 mg PO BID PRN Anxiety 07/31/23 09/21/23 Unknown History indomethacin 50 mg capsule 50 mg PO BID 07/31/23 09/21/23 09/21/23 History methadone 10 mg/mL oral 120 mg PO DAILY@0900 07/31/23 08/28/23 08/27/23 History concentrate (Methadone Intensol) mometasone-formoterol HFA 100 2 puff inhalation BID 07/31/23 09/21/23 09/21/23 History mcg-5 mcg/actuation aerosol inhaler (Dulera) trazodone 50 mg tablet 100 mg PO BEDTIME 07/31/23 09/21/23 09/20/23 History qkrfefe-sxrmsqgziejba-uswfvsau 250 2 tab PO Q6H PRN Migraine Headache 09/21/23 09/21/23 Unknown History mg-250 mg-65 mg tablet (Excedrin Extra Strength) oxycodone 5 mg tablet 5 mg PO Q6H PRN pain 09/21/23 09/21/23 Unknown History Physical Exam Vital Signs: Vital Signs: Last Vital Signs Temp 97.9 F 09/22/23 08:16 Pulse 54 09/22/23 08:38 Resp 18 09/22/23 08:38 BP 104/57 L 09/22/23 08:16 Pulse Ox 95 09/22/23 08:16 O2 Del Method Room Air 09/22/23 08:16 O2 Flow Rate 1.5 09/21/23 13:58 BMI result Body Mass Index 24.5 Const: General: cooperative, comfortable, no acute distress, alert and awake Nutritional Appearance: average body habitus Orientation/consciousness: patient oriented x3 HEENT: Head: Yes normocephalic and Yes atraumatic Neck: Neck: Yes trachea midline, Yes supple and Yes no JVD Resp: Effort & Inspection: normal respiratory effort Auscultation: clear to auscultation bilaterally Cardio: Jugular venous distension: no JVD Rate: bradycardic Rhythm: regular rhythm Heart sounds: S1 normal heart sound present, S2 normal heart sound present, no click, no gallops, no murmurs and no rubs GI: Auscultation: normal bowel sounds Skin: General skin exam: no rashes or lesions noted Neuro: General: patient oriented x3 and no focal motor deficits Extrem: General: Yes no clubbing, cyanosis or edema Objective Labs and Meds 09/21/23 12:38 09/21/23 17:20 Lab results: Laboratory Results - last 24 hr 09/21/23 09/21/23 09/21/23 11:55 12:38 12:40 WBC 3.7 L RBC 4.52 Hgb 12.5 Hct 38.4 MCV 85.0 MCH 27.7 MCHC 32.6 RDW 13.9 Plt Count 114 L D MPV 10.8 Immature Gran % (Auto) 0.0 Neut % (Auto) 44.2 L Lymph % (Auto) 44.6 H Sterling % (Auto) 9.4 Eos % (Auto) 1.3 Baso % (Auto) 0.5 Lymph # (Auto) 1.7 Sterling # (Auto) 0.4 Eos # (Auto) 0.1 Baso # (Auto) 0.0 Abs Immat Gran (auto) 0.00 Absolute Neuts (auto) 1.6 L Absolute Nucleated RBC 0.000 Nucleated RBC % (auto) 0.0 Hold Purple Top PT 12.0 INR 1.0 APTT 30.9 D-Dimer High Sensitivty 423 Hold Blue Top VBG pH VBG pCO2 VBG pO2 VBG HCO3 VBG O2 Saturation VBG Base Excess Sodium 140 Potassium 4.5 Chloride 104 Carbon Dioxide 28 Anion Gap 13 BUN 32 H Creatinine 2.04 H Estim Creat Clear Calc 38.8 Estimated GFR 26 Random Glucose 85 Lactic Acid 0.9 Calcium 9.4 Magnesium 1.8 Total Bilirubin 0.2 Direct Bilirubin < 0.2 AST 13 ALT 11 Alkaline Phosphatase 46 Ammonia Troponin I High Sens Total Protein 5.9 L Albumin 3.5 Lipase 22 Urine Color Dark Yellow Urine Appearance Cloudy Urine pH 5.0 Ur Specific [place] >= 1.030 H Urine Protein Negative Urine Glucose (UA) Negative Urine Ketones Trace Urine Blood Negative Urine Nitrite Negative Ur Leukocyte Esterase Moderate (2+) H Urine RBC 0-2 Urine WBC 11-20 H Ur Squamous Epith Cells 6-10 Urine Bacteria 3+ Hyaline Casts 3-5 Ur Random Sodium 56.0 Urine Creatinine 320.20 Urine Opiates Screen POSITIVE H Urine Fentanyl Screen Not Detected Ur Barbiturates Screen Not Detected Valproic Acid Ur Phencyclidine Scrn Not Detected Ur Amphetamines Screen Not Detected U Benzodiazepines Scrn Not Detected Urine Cocaine Screen Not Detected U Marijuana (THC) Screen Not Detected Ethyl Alcohol < 10 Influenza Type A (PCR) Influenza Type B (PCR) RSV RNA Qual (PCR) SARS-CoV-2 RNA (RT-PCR) 09/21/23 09/21/23 09/21/23 12:45 12:46 13:02 WBC RBC Hgb Hct MCV MCH MCHC RDW Plt Count MPV Immature Gran % (Auto) Neut % (Auto) Lymph % (Auto) Sterling % (Auto) Eos % (Auto) Baso % (Auto) Lymph # (Auto) Sterling # (Auto) Eos # (Auto) Baso # (Auto) Abs Immat Gran (auto) Absolute Neuts (auto) Absolute Nucleated RBC Nucleated RBC % (auto) Hold Purple Top PT INR APTT D-Dimer High Sensitivty Hold Blue Top VBG pH 7.40 VBG pCO2 47 VBG pO2 81 VBG HCO3 29 H VBG O2 Saturation 97.0 VBG Base Excess 4.2 Sodium Potassium Chloride Carbon Dioxide Anion Gap BUN Creatinine Estim Creat Clear Calc Estimated GFR Random Glucose Lactic Acid Calcium Magnesium Total Bilirubin Direct Bilirubin AST ALT Alkaline Phosphatase Ammonia 37 Troponin I High Sens < 2.7 Total Protein Albumin Lipase Urine Color Urine Appearance Urine pH Ur Specific [place] Urine Protein Urine Glucose (UA) Urine Ketones Urine Blood Urine Nitrite Ur Leukocyte Esterase Urine RBC Urine WBC Ur Squamous Epith Cells Urine Bacteria Hyaline Casts Ur Random Sodium Urine Creatinine Urine Opiates Screen Urine Fentanyl Screen Ur Barbiturates Screen Valproic Acid 65.2 Ur Phencyclidine Scrn Ur Amphetamines Screen U Benzodiazepines Scrn Urine Cocaine Screen U Marijuana (THC) Screen Ethyl Alcohol Influenza Type A (PCR) NEGATIVE Influenza Type B (PCR) NEGATIVE RSV RNA Qual (PCR) NEGATIVE SARS-CoV-2 RNA (RT-PCR) NEGATIVE 09/21/23 09/21/23 17:20 17:45 WBC RBC Hgb Hct MCV MCH MCHC RDW Plt Count MPV Immature Gran % (Auto) Neut % (Auto) Lymph % (Auto) Sterling % (Auto) Eos % (Auto) Baso % (Auto) Lymph # (Auto) Sterling # (Auto) Eos # (Auto) Baso # (Auto) Abs Immat Gran (auto) Absolute Neuts (auto) Absolute Nucleated RBC Nucleated RBC % (auto) Hold Purple Top SEE NOTE PT INR APTT D-Dimer High Sensitivty Hold Blue Top SEE NOTE VBG pH VBG pCO2 VBG pO2 VBG HCO3 VBG O2 Saturation VBG Base Excess Sodium 142 Potassium 5.1 Chloride 108 Carbon Dioxide 30 H Anion Gap 9 L BUN 29 H Creatinine 1.67 H Estim Creat Clear Calc 47.5 Estimated GFR 33 Random Glucose 114 Lactic Acid Calcium 8.9 Magnesium Total Bilirubin Direct Bilirubin AST ALT Alkaline Phosphatase Ammonia Troponin I High Sens < 2.7 Total Protein Albumin Lipase Urine Color Urine Appearance Urine pH Ur Specific [place] Urine Protein Urine Glucose (UA) Urine Ketones Urine Blood Urine Nitrite Ur Leukocyte Esterase Urine RBC Urine WBC Ur Squamous Epith Cells Urine Bacteria Hyaline Casts Ur Random Sodium Urine Creatinine Urine Opiates Screen Urine Fentanyl Screen Ur Barbiturates Screen Valproic Acid Ur Phencyclidine Scrn Ur Amphetamines Screen U Benzodiazepines Scrn Urine Cocaine Screen U Marijuana (THC) Screen Ethyl Alcohol Influenza Type A (PCR) Influenza Type B (PCR) RSV RNA Qual (PCR) SARS-CoV-2 RNA (RT-PCR) EKG shows sinus bradycardia with sinus arrhythmia. Imaging Radiologist's impression: Impressions Chest X-Ray 09/21/23 12:06 IMPRESSION: No acute abnormality. Head CT 09/21/23 12:12 IMPRESSION: No evidence of intracranial mass, hemorrhage or infarction. No acute intracranial pathology compared to 08/27/2023 Abdomen/Pelvis CT 09/21/23 14:46 IMPRESSION: Possible 3 mm nonobstructing calculus in the distal right ureter. No hydronephrosis. Constipation. Assessment and Plan (1) Syncope: Status: Acute Patient with recently increasing symptoms of syncope which appear to be orthostatic in nature leading to probably the injury 2 months ago to her left ankle. See significant. She continues to have symptoms. Symptoms very suggestive of orthostatic drop in her blood pressure. This could be related to relative hypovolemia or poor oral intake overall especially of the salt. She has been trying to increase her water intake. I have advised her to bump her water intake as well as salt intake. She was not very excited about it. I would railroad watchman aggressive IV fluid replenishment while she is here and also start her on midodrine 2.5 mg t.i.d.. Some of the medications listed in her chart can cause orthostatic hypotension and need to be evaluated. Repeat orthostatic vitals later in the day today. Obtain an echocardiogram. I do not think there is a relationship between her sinus bradycardia and syncope although this can not be entirely ruled out and will continue full disclosure hogshead head matcher. See below. (2) Sinus bradycardia: Status: Acute Significant sinus bradycardia noted overnight. Methadone is known to have calcium channel yair like activity and is cleared through the kidneys 40% of the time. There is possibility related to methadone causing her sinus bradycardia. Continue to monitor full disclosure cardiac monitoring and wait for renal function to improve. If she continues to have low blood pressure related to slow heart rate and there is clear correlation may need pacing therapy although at this point time would avoid all rate lowering medication. If methadone can be withheld safely please consider doing so. Will continue to follow with you Procedures Date of Service Date of Service: 09/22/23
--- NOTE | 2023-09-22 10:55 | HE.PHANOTE ---
METHADONE VERIFICATION Methadone Verification recieved from [facility] - pt gets split dose: 75 mg QAM and 70 mg QPM Last dose given 09/21/23, patient recieved take home bottle on 09/21/23 Provided by [employer], recieved from Rosalinda Zacarias.
--- NOTE | 2023-09-22 11:30 | PC.NURSE ---
EEG IS BEING DONE AT BEDSIDE. METHADONE IS BEEN HELD DUE TO PT'S BRADYCARDIA (PER CALEB HARTMAN NP)
--- NOTE | 2023-09-22 11:47 | MHC.EDTECH ---
this pct places pacer pads on patient per protocol per rn verbal order
--- NOTE | 2023-09-22 11:50 | PC.NURSE ---
HOSP (PASTOR HARTMAN) AWARE OF PT'S VS TREND AT THIS TIME. PT WAS PLACED ON PACER PADS. PT'S HR DECREASES WHEN SHE IS SLEEPING PT REMAINS ASYMPTOMATIC. PT TO HAVE BEDSIDE ECHOCARDIOGRAM. PT AWARE OF PLAN CARE. WILL CONTINUE TO MONITOR.
--- NOTE | 2023-09-22 13:00 | CA_ITS ---
Transthoracic Echocardiogram Patient (Last, First, Middle): Ld Mosley, Gender: Female Date of : 1975 Age: 48 Procedure Date: 09/22/2023 Procedure Type: Transthoracic Echocardiogram Location: ER Height: 157.48 cm Weight: 81.65 kg BSA: 1.83 m2 Heart Rate: bpm BP: 92 / 51 mmHg Fresh Meat Grader: MOLLY Referring MD: Mary Mccrary NP Accounts Manager: Lalit Woody MD Symptoms: bradycardia Study Quality: Fair ECG Rhythm: Sinus Bradycardia Conclusions: - Essentially normal study Findings Left Ventricle Normal left ventricular size, thickness, and systolic function. The visually estimated ejection fraction is between 65-70%. Spectral Doppler is indicative of a normal filling pattern. Right Ventricle Normal right ventricular cavity size and systolic function. Atria The left atrium is likely dilated. Interatrial shunt cannot be excluded. The right atrium is normal in size. Aortic Valve Normal aortic valve structure and function. There is no aortic valve stenosis. There is no aortic valve regurgitation. Mitral Valve Normal mitral valve structure and function. There is trace mitral valve regurgitation. There is no mitral valve stenosis. Pulmonic Valve The pulmonic valve is likely normal. Tricuspid Valve Likely normal tricuspid valve structure and function. Tricuspid regurgitation envelope is inadequate for calculation of right ventricular systolic pressure. Normal right atrial pressure. Great Vessels All visible segments of the aorta are normal in size. The pulmonary artery was not well visualized. There is no dilatation of the ascending aorta measuring 3.10 cm. Venous The inferior vena cava is normal in size and collapses greater than 50% with inspiration. Pericardium/Pleural There is no evidence of pericardial effusion. Prior Study Comparison No prior study available for comparison. Measurements 2D Linear Measurements IVSd: 1.07 0.6-0.9/0.6-1.0 cm LVIDd: 4.89 3.9-5.3/4.2-5.9 cm LVIDd Index: 2.67 2.4-3.2/2.2-3.1 cm/m2 LVIDs: 3.19 2.0-3.6 cm LVPWd: 1.00 0.7-1.1 cm Ao Root: 3.20 2.1-3.5 cm LA Diam: 3.90 2.7-3.8/3.0-4.0 cm LAIDs Index: 2.13 1.5-2.3 cm/m2 LV Mass: 228.28 67-162/88-224 g LV Mass Index: 124.74 43-95/49-115 g/m2 LVOT Diam: 2.40 3.0+(-)1.3 cm 2D Systolic Function EF 4C: 67.40 >55% EF 2C: 67.80 >55% EF BiP: 67.70 >55% Mitral Valve MV Pk E: 0.86 MV PK A: 0.74 MV Decel Time: 188.00 E/A: 1.20 E'Lateral: 17.40 E'Medial: 9.14 E/E' Med: 9.40 E/E' Lat: 4.90 PHT: 55.00 MVA PHT: 4.00 Decel Mcminn: 3.69 Aortic Valve AoV Pk Mohan: 1.41 AoV Mn Mohan: 0.76 AoV VTI: 0.36 AoV Pk Grad: 8.00 Aov Mn Grad: 3.00 YARELIS Cont.VTI: 3.31 LVOT LVOT Pk Mohan: 1.05 LVOT Mn Mohan: 0.61 LVOT VTI: 0.26 LVOT Pk Grad: 4.00 LVOT Mn Grad: 2.00 LVOT Diam: 2.40 LVOT Area: 4.52 Diastolic Function MV Pk E: 0.86 MV Pk A: 0.74 E/A: 1.20 E'Medial: 9.14 E/E' Med: 9.40 E' Laterial: 17.40 E/E' Lat: 4.90 Tricuspid Valve TR Pk Mohan: 1.98 TR Pk Grad: 16.00 Great Vessels Aorta Ao Root-2D: 3.20 2.0-3.7 cm Ao Asc: 3.10 2.1-3.4 cm Pulmonary Valve PV Pk Mohan: 1.09 Peak PV Grad: 5.00 Updated in Other Vendor System with Status of Final Lalit Woody MD electronically signed on 09/22/2023 4:12:06 PM with status of Final
--- NOTE | 2023-09-22 13:47 | P.CNNE_ITS ---
History of Present Illness Data of Consult Service Date: 09/22/23 Primary Care Provider: Magen Lantigua MD HPI This is a 48-year-old female, with a history of complex partial seizure disorder, asthma, opiate use disorder, bipolar disorder, and recent left ankle surgery presenting to the emergency department, via EMS, with complaints of not feeling well. Per EMS, family is concerned due to increased disorientation, confusion. This is her 3rd admission in 7 weeks. She has a history of polysubstance abuse however family reports that there are cameras and all opiates or locked up, and she has not had any recent visitors, however family concern for possible ingestion of opiates. Pt denies any ongoing substance use, last use 3 years ago (cocaine). Reports she continues experiencing petit mal seizures at least twice weekly (follows with Dr. Mann) with reported post ictal states where she is lethargic and disoriented. She states she had a seizure 2 months ago resulting in a fall and sustained multiple fractures LLE s/p ORIF. Has been experiencing signficant difficulty sleeping due to the pain. Reports vaping marijuana, but no other substance use including cigarettes or alcohol. Per ED provider, patient was lethargic/somnolent with pinpoint pupils. Similar to prior presentations. She is on Methadone maintenance but also has prescriptions for Oxycodone 5mg. Sz meds at Depak thisote 1250 a day and Keppra 500mg bid. She is now alert and oriented. Her heart rate is running around 36 Review of Systems 2 Review of Systems: General: No fevers, malaise, unintentional weight loss HEENT: No blurred vision, diplopia. No sore throat, nasal congestion, rhinorrhea, sinus pain, ear pain Cardiovascular: No chest pain, palpitations, or leg edema Respiratory: No shortness of breath, wheezing, cough GI: No abdominal pain, nausea, vomiting, diarrhea, constipation, melena, hematochezia : No dysuria, hematuria, increased urinary frequency, decreased urinary output MSK: No myalgia, back pain. +pain LLE Neuro: No headaches, weakness, paresthesias. +disorientation, +seizure Skin: No rashes or lesions Yes all other systems are reviewed and are negative Constitutional: Constitutional: Reports as per HPI and Reports weakness Eyes: Eyes: Reports no additional eye complaints Cardiovascular: Cardiovascular: Denies chest pain, Reports syncope, Denies leg edema, Reports lightheadedness, Reports Loss of Consciousness and Reports slow heart rate Respiratory: Respiratory: Reports no additional respiratory complaints Gastrointestinal: Gastrointestinal: Reports no additional gastrointestinal complaints Musculoskeletal: Musculoskeletal: Reports no additional musculoskeletal complaints Integumentary/Breasts: Skin/Breast: Reports system reviewed and no additional complaints, except as docu Neurologic: Reports syncope, Reports seizure-like activity (Not this time) and Reports weakness Psychiatric: Psychiatric: Reports no additional psychiatric complaints Endocrine: Endocrine: Reports no additional endocrine complaints Hematologic/Lymphatic: Hematologic/Lymphatic: Reports no additional hematologic/lymphatic complaints Allergic/Immunologic: Allergic/Immunologic: Reports no additional allergic/immunologic complaints [facility] Past Medical History Medical History Clavicle fracture Narcotic abuse Seizures Asthma COPD (chronic obstructive pulmonary disease) Surgical History Surgical History History of ankle surgery (08/05/23) H/O right knee surgery H/O left knee surgery Social History Social History Household Members: Unknown / Unable to assess Household Members Other:: pt refused to respond Housing: House Do you presently have visiting nurse or other home services: No Alcohol intake: unknown Patient Tobacco Use Status: Tobacco use Unknown Tobacco use type: Smokeless Tobacco Smoked in Last 30 Days: No Second Hand Smoke Exposure: No Use of substances other than those prescribed or required for medical reasons: No Substance Use Type: Crack/Cocaine and Opiates Advance Directives: Yes Advance Directives on File: Yes Advance Directives Date on File: 07/31/23 Nutrition Risks: No Nutritional Risk Patient : No service: No Meds Allergies Allergy/AdvReac Type Severity Reaction Status Date / Time amoxicillin [AMOXICILLIN] Allergy Intermediate RASH Verified 09/03/23 09:19 Penicillins [PENICILLINS] Allergy Intermediate RASH Verified 09/03/23 09:19 Active Medications: Current Medications Acetaminophen (Acetaminophen 325 Mg Tablet) 650 mg PO Q6H PRN PRN Reason: Pain, Mild (Pain Scale 1-3) Last Admin: 09/22/23 09:18 Dose: 650 mg Divalproex Sodium (Divalproex Sodium 250 Mg Tablet.Dr) 750 mg PO BEDTIME [facility] Last Admin: 09/21/23 22:44 Dose: 750 mg Divalproex Sodium (Divalproex Sodium 500 Mg Tablet.) 500 mg PO DAILY [facility] Last Admin: 09/22/23 08:32 Dose: 500 mg Enoxaparin Sodium (Enoxaparin Sodium 40 Mg/0.4 Ml Syringe) 40 mg SUBCUT Q24H [facility] Last Admin: 09/21/23 22:44 Dose: 40 mg Fluticasone/Vilanterol (Fluticasone/Vilanterol 100/25 Blst.W.Dev) 1 puff INHALE RDAILY [facility] Last Admin: 09/22/23 08:35 Dose: 1 puff Hydroxyzine HCl (Hydroxyzine Hcl 25 Mg Tablet) 25 mg PO BID PRN PRN Reason: Anxiety Sodium Chloride (Ns) 1,000 mls @ 100 mls/hr IVCONT .Q10H [facility] Last Admin: 09/22/23 09:18 Dose: 100 mls/hr Levetiracetam (Levetiracetam 500 Mg Tablet) 500 mg PO BID [facility] Last Admin: 09/22/23 08:32 Dose: 500 mg Midodrine (Midodrine Hcl 2.5 Mg Tablet) 2.5 mg PO TID [facility] Ondansetron HCl (Ondansetron Hcl 4 Mg/2 Ml Vial) 4 mg IVPUSH Q8H PRN PRN Reason: Nausea and Vomiting Oxycodone HCl (Oxycodone Hcl Immed Release 5 Mg Tablet) 5 mg PO Q6H PRN PRN Reason: Pain, Severe (Pain Scale 7-10) Last Admin: 09/22/23 09:18 Dose: 5 mg Senna (Sennosides 8.6 Mg Tablet) 17.2 mg PO BEDTIME PRN PRN Reason: Constipation Sodium Chloride (0.9 % Sodium Chloride Flush 3 Ml Syringe) 3 ml IVFLUSH QSHIFT [facility] Last Admin: 09/22/23 08:32 Dose: 3 ml Trazodone HCl (Trazodone Hcl 100 Mg Tablet) 100 mg PO BEDTIME [facility] Last Admin: 09/21/23 22:44 Dose: 100 mg Home Medications Medication Instructions Recorded Confirmed Last Taken Type divalproex 250 mg tablet,delayed 750 mg PO BEDTIME 07/31/23 09/21/2309/19/24 History release divalproex 500 mg tablet,delayed 500 mg PO DAILY 07/31/23 09/21/23 09/21/23 History release hydroxyzine HCl 25 mg tablet 25 mg PO BID PRN Anxiety 07/31/23 09/21/23 Unknown History indomethacin 50 mg capsule 50 mg PO BID 07/31/23 09/21/23 09/21/23 History methadone 10 mg/mL oral 120 mg PO DAILY@0900 07/31/23 08/28/23 08/27/23 History concentrate (Methadone Intensol) mometasone-formoterol HFA 100 2 puff inhalation BID 07/31/23 09/21/23 09/21/23 History mcg-5 mcg/actuation aerosol inhaler (Dulera) trazodone 50 mg tablet 100 mg PO BEDTIME 07/31/23 09/21/23 09/20/23 History [id number] 250 2 tab PO Q6H PRN Migraine Headache 09/21/23 09/21/23 Unknown History mg-250 mg-65 mg tablet (Excedrin Extra Strength) oxycodone 5 mg tablet 5 mg PO Q6H PRN pain 09/21/23 09/21/23 Unknown History Physical Exam 2 Vital Signs: Vital Signs: Last Vital Signs Temp 98.0 F 09/22/23 10:31 Pulse 45 L 09/22/23 12:27 Resp 10 L 09/22/23 12:27 BP 92/51 L 09/22/23 12:27 Pulse Ox 99 09/22/23 12:27 O2 Del Method Nasal Cannula 09/22/23 12:27 O2 Flow Rate 2 09/22/23 12:27 BMI result Body Mass Index 24.5 Const: General: cooperative, comfortable, no acute distress, alert and awake Nutritional Appearance: average body habitus Orientation/consciousness: p atient oriented x3 Limitations: no limitations HEENT: Head: Yes normal to inspection, Yes normocephalic and Yes atraumatic Ears: hearing grossly normal bilaterally General nose exam: Normal external nose present Face and sinus: Yes normal facial exam Mouth: Normal oral and palatal mucosa present, oropharynx normal and moist mucous membranes Throat: Yes posterior oropharynx normal Eyes: Other: pinpoint pupils noted bilaterally, reactive. General: appearance normal, both eyes and all related structures E yelids: Yes eyelids normal Conjunctivae: conjunctivae normal Sclerae: s clerae normal Pupils: Equal, round and reactive pupils present EOM: EOMs intact bilaterally Neck: Neck: Yes normal visual inspection, Yes full ROM, Yes no lymphadenopathy, Yes trachea midline, Yes supple and Yes no JVD Lymphatic: no lymphadenopathy noted Chest: Chest palpation & inspection: normal inspection of the chest Resp: Effort & Inspection: normal respiratory effort and able to speak in complete sentences Auscultation: clear to auscultation bilaterally, no crackles, no rales, no rhonchi and no wheezes Cardio: Jugular venous distension: no JVD Rate: regular rate and bradycardic Rhythm: regular rhythm Heart sounds: S1 normal heart sound present, S2 normal heart sound present, no click, no gallops, no murmurs and no rubs GI: Inspection: Yes normal to inspection Auscultation: normal bowel sounds Skin: General skin exam: no rashes or lesions noted Trauma: no lacerations or abrasions Wounds: no wounds Neuro: Other: She's alert and oriented. Cranial nerves II through XII are normal. Muscle tone and strength are normal in all 4 extremities. Reflexes symmetrical. Plantar response are flexor. Neck is supple General: patient oriented x3, moves all extremities and no focal motor deficits Cranial nerves: Yes Equal, round and reactive pupils present Extrem: Other: Left lower extremity in splint General: Yes normal to inspection and Yes no clubbing, cyanosis or edema Right upper extremity: normal to inspection Left upper extremity: normal to inspection Right lower extremity: normal to inspection Left lower extremity: normal to inspection Results Labs 09/21/23 12:38 09/21/23 17:20 Labs: BMP 09/21/23 17:20 Sodium 142 Potassium 5.1 Chloride 108 Carbon Dioxide 30 H BUN 29 H Creatinine 1.67 H Calcium 8.9 Microbiology Microbiology Results: Microbiology 09/21/23 Unknown Urine clean catch - Urine lucero top Urine Culture - Final Assessment and Plan (1) Encephalopathy: Status: Resolved No witnessed Sz and EEG shows no Szactivity. Mil ddiffuse slowing 7-7.5hz. The question of substance abuse remains. Whether severe bradycardia contributed to hypoxia is unclear. Continue current Sz meds at same dose. F/y with Dr. Mann after discharge (2) Syncope: Status: Acute Patient with recently increasing symptoms of syncope which appear to be orthostatic in nature and probably from severe sinus bradycardia. (3) Sinus bradycardia: Status: Acute Significant sinus bradycardia noted overnight. Methadone is known to have calcium channel yair like activity and is cleared through the kidneys 40% of the time. There is possibility related to methadone causing her sinus bradycardia. Continue to monitor full disclosure cardiac monitoring and wait for renal function to improve. If she continues to have low blood pressure related to slow heart rate and there is clear correlation may need pacing therapy although at this point time would avoid all rate lowering medication. If methadone can be withheld safely please consider doing so. Will continue to follow with you Procedures Date of Service Date of Service: 09/22/23
--- NOTE | 2023-09-22 13:52 | P.PNIM_ITS ---
Subjective Subjective Date of Service: 09/22/23 Review of Systems Follow up seizure, bradycardia, abdirahman having pain to left leg, cast on no dizziness or headache Physical Exam 2 Vital Signs: Vital Signs: Last Vital Signs Temp 98.0 F 09/22/23 10:31 Pulse 45 L 09/22/23 12:27 Resp 10 L 09/22/23 12:27 BP 92/51 L 09/22/23 12:27 Pulse Ox 99 09/22/23 12:27 O2 Del Method Nasal Cannula 09/22/23 12:27 O2 Flow Rate 2 09/22/23 12:27 BMI result Body Mass Index 24.5 Appearing in no acute distress lung sounds are clear to auscultation heart regular rate rhythm, clear S1, S2 positive bowel sounds, abdomen is soft, nontender neuro patient is alert x3, no focal deficits Cast to LLE Objective Data Active Medications Acetaminophen (Acetaminophen 325 Mg Tablet) 650 mg PO Q6H PRN PRN Reason: Pain, Mild (Pain Scale 1-3) Last Admin: 09/22/23 09:18 Dose: 650 mg Documented By: SANGITA Divalproex Sodium (Divalproex Sodium 250 Mg Tablet.) 750 mg PO BEDTIME [facility] Last Admin: 09/21/23 22:44 Dose: 750 mg Documented By: MARQUIS Divalproex Sodium (Divalproex Sodium 500 Mg Tablet.) 500 mg PO DAILY [facility] Last Admin: 09/22/23 08:32 Dose: 500 mg Documented By: SANGITA Enoxaparin Sodium (Enoxaparin Sodium 40 Mg/0.4 Ml Syringe) 40 mg SUBCUT Q24H [facility] Last Admin: 09/21/23 22:44 Dose: 40 mg Documented By: MARQUIS Fluticasone/Vilanterol (Fluticasone/Vilanterol 100/25 Blst.W.Dev) 1 puff INHALE RDAILY [facility] Last Admin: 09/22/23 08:35 Dose: 1 puff Documented By: SANGITA Hydroxyzine HCl (Hydroxyzine Hcl 25 Mg Tablet) 25 mg PO BID PRN PRN Reason: Anxiety Sodium Chloride (Ns) 1,000 mls @ 100 mls/hr IVCONT .Q10H [facility] Last Admin: 09/22/23 09:18 Dose: 100 mls/hr Documented By: SANGITA Levetiracetam (Levetiracetam 500 Mg Tablet) 500 mg PO BID [facility] Last Admin: 09/22/23 08:32 Dose: 500 mg Documented By: SANGITA Midodrine (Midodrine Hcl 2.5 Mg Tablet) 2.5 mg PO TID [facility] Ondansetron HCl (Ondansetron Hcl 4 Mg/2 Ml Vial) 4 mg IVPUSH Q8H PRN PRN Reason: Nausea and Vomiting Oxycodone HCl (Oxycodone Hcl Immed Release 5 Mg Tablet) 5 mg PO Q6H PRN PRN Reason: Pain, Severe (Pain Scale 7-10) Last Admin: 09/22/23 09:18 Dose: 5 mg Documented By: SANGITA Senna (Sennosides 8.6 Mg Tablet) 17.2 mg PO BEDTIME PRN PRN Reason: Constipation Sodium Chloride (0.9 % Sodium Chloride Flush 3 Ml Syringe) 3 ml IVFLUSH QSHIFT [facility] Last Admin: 09/22/23 08:32 Dose: 3 ml Documented By: SANGITA Trazodone HCl (Trazodone Hcl 100 Mg Tablet) 100 mg PO BEDTIME [facility] Last Admin: 09/21/23 22:44 Dose: 100 mg Documented By: DITOLC Labs 09/21/23 12:38 09/21/23 17:20 Labs: Laboratory Results - last 24 hr 09/21/23 09/21/23 09/21/23 11:55 12:46 17:20 Hold Purple Top Hold Blue Top SEE NOTE Anion Gap 9 L Estim Creat Clear Calc 47.5 Estimated GFR 33 Random Glucose 114 Calcium 8.9 Troponin I High Sens < 2.7 Ur Random Sodium 56.0 Urine Creatinine 320.20 Influenza Type A (PCR) NEGATIVE Influenza Type B (PCR) NEGATIVE RSV RNA Qual (PCR) NEGATIVE SARS-CoV-2 RNA (RT-PCR) NEGATIVE 09/21/23 17:45 Hold Purple Top SEE NOTE Hold Blue Top Anion Gap Estim Creat Clear Calc Estimated GFR Random Glucose Calcium Troponin I High Sens Ur Random Sodium Urine Creatinine Influenza Type A (PCR) Influenza Type B (PCR) RSV RNA Qual (PCR) SARS-CoV-2 RNA (RT-PCR) Microbiology Microbiology Results: Microbiology 09/21/23 Unknown Urine Culture - Final Urine clean catch - Urine lucero top Assessment and Plan (1) Sinus bradycardia: Status: Acute Plan 48-year-old female, with a history of seizure disorder, asthma, opiate use disorder, and recent left ankle surgery admitted for ABDIRAHMAN and possible breakthrough seizure activity Bradycardia unknown etiology ? abdirahman on methadone methadone on hold, Tania Tompkins aware, rec oxycodone to avoid withdrawal cardiology following> monitor off methadone (QTC 412), at this time no indication for pacemaker, no hb noted pacer pads at bedside, atropine if needed discussed case with ICU attending Dr. Weiss, no need for ICU at this time as patient is asymptomatic Hypotension patient reports chronic low BP cardiology rec Midodrine on IV fluids Acute kidney injury- likely due to decreased po intake and nsaid use ct abd/pelvis negative for obstruction Continue IVF avoid nephrotoxins, hold indomethacin follow renal function/lytes Acute metabolic encephalopathy- resolved on admission ?r/t breakthrough seizures (pt reports 2 petit mal seizures weekly) no medication misuse- narcotics in lock box and on camera and no visitors in home per patient's family head ct negative for acute intracranial abnormality. Ammonia level normal, no hypercapnea monitor mentation Petit mal seizure disorder continue keppra, depakote seizure precautions neuro consult, eeg as above fracture left medial malleolus/fibula s/p ORIF 08/04/23 with routine healing continue oxycodone prn, hold indomethacin Unspecified asthma no acute exacerbation continue dulera, albuterol prn Opioid dependence hold methadone for bradycardia DVt prophyalxis- lovenox Attending Dr. Mak Full code continue hospital stay for management of ABDIRAHMAN, bradycardia, hypotension on IVF requiring close monitoring of renal function/lytes. Quality Stroke Does the patient have a stroke diagnosis?: No VTE Prior VTE?: No VTE Risk Level:: Medical - moderate - high VTE Device Contraindication: Treatment Not Indicated VTE Drug Contraindication: N/A - Med Ordered
--- NOTE | 2023-09-22 15:33 | PC.NURSE ---
BESIDE [id number] DONE.
[2023-09-22] MEDS: Midodrine HCl 2.5 MG TABLET PO ×2 (16:52→21:20)
[2023-09-22] MEDS: ondansetron HCL 4 MG/2 ML VIAL IVPUSH (18:36)
[2023-09-22] MEDS: hydrOXYzine HCL 25 MG TABLET PO (21:20)
[2023-09-22] MEDS: Divalproex Sodium 250 MG TABLET.DR 750 MG PO (21:20)
[2023-09-22] MEDS: oxyCODONE HCl Immed Release 5 MG TABLET 10 MG PO (23:02)
[2023-09-22] MEDS: Enoxaparin Sodium 40 MG/0.4 ML SYRINGE SUBCUT (23:03)
[2023-09-22] MEDS: traZODone HCL 100 MG TABLET PO (23:04)
[2023-09-23] VITALS (8 sets, daily range): BP systolic 98–127; BP diastolic 51–60; PULSE 28–48; RESP 15–20; TEMP 36.1–36.7; O2SAT 94–95
[2023-09-23] MEDS: 0.9 % Sodium Chloride Flush 3 ML SYRINGE IVFLUSH ×3 (01:25→16:33)
[2023-09-23 01:28] LABS: MANUAL DIFF FLAG NO
[2023-09-23 01:35] LABS: Basophils Percent Auto 0.3 % (0-2); Hematocrit 32.7 % (37.0-47.0); Hemoglobin 11.2 g/dl (12.0-16.0); Imm Gran Abs Auto 0.01 X10*3/uL (0.00-0.03); Imm Gran Pct Auto 0.3 % (0.0-0.4); Lymphocytes Absolute Auto 1.4 X10*3/uL (1.2-4.9); Mean Corpuscular HGB Conc 34.3 g/dl (31.0-35.0); Mean Corpuscular Volume 81.8 fL (80.0-98.0); Monocytes Absolute Auto 0.3 X10*3/uL (0.1-1.2); Neutrophils Absolute Auto 1.4 x10*3/uL (2.0-8.3); Neutrophils Percent Auto 45.4 % (45-73); Platelet Count 103 X10*3/uL (160-400); White Blood Count 3.1 X10*3/uL (4.8-10.8)
[2023-09-23 01:44] LABS: Anion Gap 12 (12-20); Blood Urea Nitrogen 14 mg/dL (9-16); Calcium 9.1 mg/dL (8.4-10.2); Carbon Dioxide 26 mmol/L (22-29); Chloride 109 mmol/L (96-108); Creatinine Clr Calc Pharmacy 95.6; Estimated Glomerular Filt Rate > 60; Glucose Random 84 mg/dL (60-115); Magnesium 1.6 mg/dL (1.6-2.6); Sodium 142 mmol/L (135-145)
[2023-09-23] MEDS: 0.9 % Sodium Chloride 1,000 ML 100 ML IVCONT ×2 (05:29→15:28)
[2023-09-23] MEDS: oxyCODONE HCl Immed Release 5 MG TABLET 10 MG PO ×4 (05:30→19:52)
--- NOTE | 2023-09-23 08:15 | PC.NURSE ---
09/22/2023 [id number] Seb witt messaged regarding patient's persistent sinus bradycardia. HR 20's, with P waves and episode of pause 3.07 seconds. BP maintaining as documented in Vital sign assessment and pt declined full set of orthostatic BP standing. Pt reports she is not having episodes of lightheadedness or dizziness. Clarification sought from Dr. Grigsby regarding pt requesting 10mg Oxycodone before the ordered every six hours, taking 100mg trazodone for sleep as scheduled, offering Atarax for anxiety and plan for medically managing acuity over night. Dr. Grigsby responded allowing Oxycodone to be given between [id number],trazodone permissible as ordered but offer Atarax first. Patient assessed and pt cooperative with plan of care. Pt requested 50mg Trazodone po, okayed by . @#00 Dr. Grigsby notified pt reports HR goes to low 20's she feels slight chest pressure and if requesting O2 for comfort as she is becoming afraid. Asking provider if ICU should reassess. BP 116/[address] Grigsby noted ICU and cardiology based upon there assessment reported no intervention as long as BP remains stable. Pt has standing order for Atropine PRN Bradycardia, Dr. Grigsby messaged asking for clarification of administation for which provider responded to give Atropine if BP drops. Also order clarification , Vital signs to be obtained Q2H or when dizzy or lightheadness. Pt throughout the night requested to sleep did allow Vital signs at times. Pt did allow labs to be drawn and results were reviewed by Dr. Grigsby with no new orders based on lab results. Pt only complain of one episode of chest pressure and during the frequent assessment was easily arousable. Pt at 0600 got OOB to bedside commode and HR improved to 30-40's with pt having no medical issues while on commode. Pt intermittently sleeping throughout the night and after voiding on commode stated I will throw anyone out who comes into my room one more time for VS, breakfast tray or labs. I want to sleep!. 0700 Report given to oncoming RN and presently patient is now refusing all care and Vital signs.
[2023-09-23] MEDS: Fluticasone/Vilanterol 100/25 BLST.W.DEV 1 PUFF INHALE (08:21)
--- NOTE | 2023-09-23 09:11 | MHC.CM.PN ---
IMM 09/22. Pt lives at home with her parents. Pt is active with [facility] for SN/PT/OT, and uses a wheelchair s/p ankle fx and repair, per pts mom, she is still non-weight bearing. Pts mother can transport her home, but states she may need assistance getting her in to the home with the wheelchair. HCP on file and verified. PCP: Dr. Magen Lantigua
[2023-09-23] MEDS: Midodrine HCl 2.5 MG TABLET PO (09:49)
[2023-09-23] MEDS: levETIRAcetam 500 MG TABLET PO ×2 (09:49→19:53)
[2023-09-23] MEDS: Divalproex Sodium 500 MG TABLET.DR PO (09:49)
[2023-09-23] MEDS: hydrOXYzine HCL 25 MG TABLET PO (09:49)
[2023-09-23] MEDS: ondansetron HCL 4 MG/2 ML VIAL IVPUSH (10:50)
--- NOTE | 2023-09-23 13:23 | PM.PNCARD ---
Subjective Subjective Date of Service: 09/23/23 Principal diagnosis: Sinus bradycardia, hypertension. Interval history: Patient overnight had significant bradycardia and in the morning again the heart rate improved into the 60s and 80 sinus rhythm. Again the heart rate in the 30s. With a low heart rate patient's blood pressure is always been stable. There is no clear correlation with low heart rate and low blood pressure. Patient has been also given midodrine. Renal function has normalized. She says she is withdrawing from methadone at this point in time. She complains of pain all over her body as well as in her site of surgery. Review of Systems Constitutional: Reports other (Generalized pain, not feeling well) Eyes: Reports no additional eye complaints Reports system reviewed and no additional complaints, except as documented Cardiovascular: Reports no additional cardiovascular complaints Respiratory: Reports no additional respiratory complaints Gastrointestinal: Reports no additional gastrointestinal complaints Genitourinary: Reports no additional female genitourinary complaints Musculoskeletal: Reports no additional musculoskeletal complaints Reports system reviewed and no additional complaints, except as documented Endocrine: Reports no additional endocrine complaints Physical Exam Vital Signs: Last Vital Signs Temp 98.0 F 09/23/23 11:17 Pulse 38 L 09/23/23 11:17 Resp 20 09/23/23 11:17 BP 110/59 L 09/23/23 11:17 Pulse Ox 95 09/23/23 11:17 O2 Del Method Room Air 09/23/23 11:17 O2 Flow Rate 1.5 09/23/23 03:07 BMI result Body Mass Index 24.5 Const General: cooperative, comfortable, no acute distress, alert and awake Nutritional Appearance: average body habitus Orientation/consciousness: patient oriented x3 HEENT Head: Yes normocephalic and Yes atraumatic Neck Neck: Yes trachea midline, Yes supple and Yes no JVD Resp Effort & Inspection: normal respiratory effort Auscultation: clear to auscultation bilaterally Cardio Jugular venous distension: no JVD Rate: bradycardic Rhythm: regular rhythm Heart sounds: S1 normal heart sound present, S2 normal heart sound present, no click, no gallops, no murmurs and no rubs GI Auscultation: normal bowel sounds Skin General skin exam: no rashes or lesions noted Neuro General: patient oriented x3 and no focal motor deficits Extrem General: Yes no clubbing, cyanosis or edema Objective Labs and Meds 09/23/23 01:23 09/23/23 01:23 Lab results: Laboratory Results - last 24 hr 09/23/23 01:23 WBC 3.1 L RBC 4.00 L Hgb 11.2 L Hct 32.7 L MCV 81.8 MCH 28.0 MCHC 34.3 RDW 14.0 Plt Count 103 L MPV 10.0 Immature Gran % (Auto) 0.3 Neut % (Auto) 45.4 Lymph % (Auto) 45.0 H Todd % (Auto) 8.0 Eos % (Auto) 1.0 Baso % (Auto) 0.3 Lymph # (Auto) 1.4 Todd # (Auto) 0.3 Eos # (Auto) 0.0 Baso # (Auto) 0.0 Abs Immat Gran (auto) 0.01 Absolute Neuts (auto) 1.4 L Absolute Nucleated RBC 0.000 Nucleated RBC % (auto) 0.0 Sodium 142 Potassium 5.0 Chloride 109 H Carbon Dioxide 26 Anion Gap 12 BUN 14 Creatinine 0.83 Estim Creat Clear Calc 95.6 Estimated GFR > 60 Random Glucose 84 Calcium 9.1 Magnesium 1.6 Progress Note: A&P Assessment and plan (1) Sinus bradycardia: Status: Acute Assessment and Plan: Sinus bradycardia persistent and severe without any obvious correlating hypotension and/any other symptoms. Her renal function has now normalized. Will continue to monitor for 1 more day. If remains significantly bradycardic, will discuss with EPS about further course of action whether patient would benefit from pacing therapy as she has prior history of syncope and lightheadedness. (2) Syncope: Status: Acute Assessment and Plan: Syncope appears to be related to orthostatic hypotension probably caused by her psychoactive medications. Currently blood pressures improved with midodrine therapy. Advised to continue to maintain IV hydration aggressively. Increase midodrine to 5 mg t.i.d.. Continue monitor for orthostatic vitals. Will follow with you Time Spent With Patient Time: Total time managing care of this patient today ____ minutes. Progress Note: Quality Stroke Does the patient have a stroke diagnosis?: No Procedures Date of Service Date of Service: 09/23/23
--- NOTE | 2023-09-23 15:03 | P.PNIM_ITS ---
Subjective Subjective Date of Service: 09/23/23 Interval History: Continues to have bradycardic episodes overnight which are asymptomatic. Biggest focus is withdrawal from methadone Review of Systems Denies chest pain Denies shortness of breath Admits nausea denies vomiting diarrhea Denies fever chills Admits to generalized body aches for methadone withdrawal Physical Exam 2 Vital Signs: Vital Signs: Last Vital Signs Temp 98.0 F 09/23/23 11:17 Pulse 38 L 09/23/23 11:17 Resp 20 09/23/23 11:17 BP 110/59 L 09/23/23 11:17 Pulse Ox 95 09/23/23 11:17 O2 Del Method Room Air 09/23/23 11:17 O2 Flow Rate 1.5 09/23/23 03:07 BMI result Body Mass Index 24.5 Const: Other: Awake alert no acute distress Resp: Other: Clear to auscultation bilaterally no rales rhonchi or wheezes Cardio: Other: No S4; positive S1-S2; no S3 murmurs rubs or gallops GI: Other: Soft nontender nondistended normoactive bowel sounds Extrem: Other: No edema bilaterally Objective Data Active Medications Acetaminophen (Acetaminophen 325 Mg Tablet) 650 mg PO Q6H PRN PRN Reason: Pain, Mild (Pain Scale 1-3) Last Admin: 09/22/23 21:20 Dose: 650 mg Documented By: JANET Atropine Sulfate (Atropine Sulfate 1 Mg/10 Ml Syringe) 0.5 mg IVPUSH ONCE PRN PRN Reason: bradycardia Divalproex Sodium (Divalproex Sodium 250 Mg Tablet.) 750 mg PO BEDTIME [facility] Last Admin: 09/22/23 21:20 Dose: 750 mg Documented By: JANET Divalproex Sodium (Divalproex Sodium 500 Mg Tablet.) 500 mg PO DAILY [facility] Last Admin: 09/23/23 09:49 Dose: 500 mg Documented By: TICO Enoxaparin Sodium (Enoxaparin Sodium 40 Mg/0.4 Ml Syringe) 40 mg SUBCUT Q24H [facility] Last Admin: 09/22/23 23:03 Dose: 40 mg Documented By: JANET Fluticasone/Vilanterol (Fluticasone/Vilanterol 100/25 Blst.W.Dev) 1 puff INHALE RDAILY [facility] Last Admin: 09/23/23 08:21 Dose: 1 puff Documented By: LOTTIE Hydroxyzine HCl (Hydroxyzine Hcl 25 Mg Tablet) 25 mg PO BID PRN PRN Reason: Anxiety Last Admin: 09/23/23 09:49 Dose: 25 mg Documented By: TICO Sodium Chloride (Ns) 1,000 mls @ 100 mls/hr IVCONT .Q10H [facility] Last Admin: 09/23/23 05:29 Dose: 100 mls/hr Documented By: JANET Levetiracetam (Levetiracetam 500 Mg Tablet) 500 mg PO BID [facility] Last Admin: 09/23/23 09:49 Dose: 500 mg Documented By: TICO Midodrine (Midodrine Hcl 2.5 Mg Tablet) 2.5 mg PO TID [facility] Last Admin: 09/23/23 09:49 Dose: 2.5 mg Documented By: TICO Ondansetron HCl (Ondansetron Hcl 4 Mg/2 Ml Vial) 4 mg IVPUSH Q8H PRN PRN Reason: Nausea and Vomiting Last Admin: 09/23/23 10:50 Dose: 4 mg Documented By: TICO Oxycodone HCl (Oxycodone Hcl Immed Release 5 Mg Tablet) 10 mg PO Q4H [facility] Last Admin: 09/23/23 12:45 Dose: 10 mg Documented By: TICO Oxycodone HCl (Oxycodone Hcl Immed Release 5 Mg Tablet) 10 mg PO Q6H PRN PRN Reason: Pain, Severe (Pain Scale 7-10) Senna (Sennosides 8.6 Mg Tablet) 17.2 mg PO BEDTIME PRN PRN Reason: Constipation Sodium Chloride (0.9 % Sodium Chloride Flush 3 Ml Syringe) 3 ml IVFLUSH QSHIFT [facility] Last Admin: 09/23/23 09:50 Dose: 3 ml Documented By: TICO Trazodone HCl (Trazodone Hcl 100 Mg Tablet) 100 mg PO BEDTIME [facility] Last Admin: 09/22/23 23:04 Dose: 50 mg Documented By: JANET Comments: Per patient request. Dr. Seb notified and aware. Labs 09/23/23 01:23 09/23/23 01:23 Labs: Laboratory Results - last 24 hr 09/23/23 01:23 MCV 81.8 MCH 28.0 MCHC 34.3 RDW 14.0 Plt Count 103 L MPV 10.0 Immature Gran % (Auto) 0.3 Neut % (Auto) 45.4 Lymph % (Auto) 45.0 H [place] % (Auto) 8.0 Eos % (Auto) 1.0 Baso % (Auto) 0.3 Lymph # (Auto) 1.4 [place] # (Auto) 0.3 Eos # (Auto) 0.0 Baso # (Auto) 0.0 Abs Immat Gran (auto) 0.01 Absolute Neuts (auto) 1.4 L Absolute Nucleated RBC 0.000 Nucleated RBC % (auto) 0.0 Anion Gap 12 Estim Creat Clear Calc 95.6 Estimated GFR > 60 Random Glucose 84 Calcium 9.1 Magnesium 1.6 Microbiology Microbiology Results: Microbiology 09/21/23 12:38 Blood Culture - Preliminary Blood - Venous No growth after 48 hours. 09/21/23 13:02 Blood Culture - Preliminary Blood - Venous No growth after 24 hours. Assessment and Plan (1) Sinus bradycardia: Status: Acute (2) ABDIRAHMAN (acute kidney injury): Status: Acute (3) Seizure disorder: Status: Acute (4) Opioid use disorder: Status: Acute Plan 48-year-old female, with a history of seizure disorder, asthma, opiate use disorder, and recent left ankle surgery admitted for ABDIRAHMAN and possible breakthrough seizure activity 1.Bradycardia Likely related to methadone use. Discussed with addiction Medicine; patient has strong tendencies towards abuse. Will likely do best from a relapse standpoint with methadone. Will discuss with Cardiology. . . Consider pacemaker given need for ongoing methadone -continue to hold methadone -oxycodone as per pharmacy conversion to control withdrawal symptoms -follow clinically; cardiology to reassess in a.m. 2.Hypotension -continue volume repletion with normal saline -increase midodrine to 5 mg t.i.d. 3.Acute kidney injury Resolved with aggressive volume repletion. -continue volume repletion with IV normal saline -follow renals/divalents 4.Petit mal seizure disorder None since admission -continue keppra depakote -seizure precautions -neuro consult, eeg pending 5.Fracture left medial malleolus/fibula s/p ORIF 08/04/23 with routine healing -continue oxycodone prn, hold indomethacin 6.Opioid dependence -continue to hold methadone -oxycodone to cover withdrawal as per pharmacy lovenox Full code continue hospital stay for management of ABDIRAHMAN, bradycardia, hypotension on IVF requiring close monitoring of renal function/lytes. Quality Stroke Does the patient have a stroke diagnosis?: No VTE Prior VTE?: No VTE Risk Level:: Medical - moderate - high VTE Device Contraindication: Treatment Not Indicated VTE Drug Contraindication: N/A - Med Ordered
--- NOTE | 2023-09-23 15:20 | MHC.RECOVRN ---
Met with pt in 457 after consult placed to Addiction Medicine for methadone. Pt had presented to the ED reporting not feeling well, having subjective seizures, confusion, difficulty word finding. Upon evaluation, pt admitted for bradycardia. Pts methadone is currently being held, however, has been on split dosing through [facility] on [address], 75 mg in the morning and 70 mg in the evening. Last doses on 09/21/23. Pt laying in bed, awake, alert, easily engages in conversation. Reports frustration with current situation, states I got clean for what? For everything to fall apart? Pt reports [facility] [place] suggested pt transition to Suboxone, pt declines. Pt currently receiving oxycodone, 10 mg q4 hours scheduled. Pt also has oxycodone 10 mg q 6 hours prn ordered. Currently, pt is comfortable, denies withdrawal symptoms. Pt reports if needed she will taper off methadone, however, reports it has been a helpful medication with her recovery. Pt denies questions or concerns for t/w at this time. Will continue to follow. Discussed with Tania Tompkins APRN.
[2023-09-23] MEDS: Midodrine HCl 5 MG TABLET PO (16:28)
--- NOTE | 2023-09-23 17:21 | PM.EVENT ---
Event Note Date of Service: 09/23/23 Event Note: Addiction note Patient with OUD in remission on MOUD--methadone Currently hospitalized with bradycardia (HR 30s) Methadone held t/w spoke with pharmacy to determine scheduled dosing based on methadone dose recs made and orders placed patient seen by flight control tower operator later in the afternoon. She denied any withdrawal sx and appeared comfortable She reported to RN that she does not want to transition to buprenorphine and wishes to stay on methadone. this greeting card writer to follow up in the AM Time Spent With Patient Time: Total time managing care of this patient today ____ minutes.
--- NOTE | 2023-09-23 17:45 | PC.NURSE ---
Patient sinus bradycardic as low as 29 throughout this shift. Asymptomatic. VSS. MD's are aware including cardiology. See provider notes. Pacer pads on patient. Patient also refusing seizure precaution pads.
[2023-09-23] MEDS: traZODone HCL 100 MG TABLET PO (19:52)
[2023-09-23] MEDS: Divalproex Sodium 250 MG TABLET.DR 750 MG PO (19:53)
[2023-09-23] MEDS: Acetaminophen 325 MG TABLET 650 MG PO (19:53)
[2023-09-24] VITALS (10 sets, daily range): BP systolic 95–120; BP diastolic 50–78; PULSE 27–66; RESP 16–20; TEMP 36–36.7; O2SAT 88–96
--- NOTE | 2023-09-24 | ECG_ITS ---
Test Reason : chest pain Blood Pressure : / mmHG Vent. Rate : 032 BPM Atrial Rate : 032 BPM P-R Int : 140 ms QRS Dur : 094 ms QT Int : 572 ms P-R-T Axes : 043 037 059 degrees QTc Int : 417 ms Marked sinus bradycardia Nonspecific T wave abnormality Abnormal ECG When compared with ECG of 22-SEP-2023 05:33, No significant change was found Referred By: Jake Grigsby Electronically Signed By:BRENT LEMOS MD
--- NOTE | 2023-09-24 | PM.EVENT ---
Event Note Date of Service: 09/24/23 Event Note: Patient had 2 episodes of 3s pauses. Cardiology was consulted who requested the patient to be NPO Time Spent With Patient Time: Total time managing care of this patient today ____ minutes.
[2023-09-24] MEDS: 0.9 % Sodium Chloride Flush 3 ML SYRINGE IVFLUSH ×3 (00:21→15:51)
--- NOTE | 2023-09-24 00:22 | ECG_ITS ---
Test Reason : Bradycardia Blood Pressure : / mmHG Vent. Rate : 030 BPM Atrial Rate : 000 BPM P-R Int : 000 ms QRS Dur : 098 ms QT Int : 570 ms P-R-T Axes : 000 025 057 degrees QTc Int : 402 ms Marked Sinus bradycardia Nonspecific T wave abnormality Abnormal ECG When compared with ECG of 24-SEP-2023 00:22, Junctional rhythm has replaced Sinus rhythm Referred By: Maame Barnett Electronically Signed By:BRENT LEMOS MD
[2023-09-24] MEDS: oxyCODONE HCl Immed Release 5 MG TABLET 10 MG PO ×5 (00:43→12:43)
[2023-09-24 02:15] LABS: Troponin-I High Sensitivity < 2.7 ng/L (<3.5-17.0)
[2023-09-24] MEDS: hydrOXYzine HCL 25 MG TABLET PO (04:43)
[2023-09-24] MEDS: Acetaminophen 325 MG TABLET 650 MG PO (04:43)
[2023-09-24] MEDS: levETIRAcetam 500 MG TABLET PO ×2 (08:32→19:50)
[2023-09-24] MEDS: Midodrine HCl 5 MG TABLET PO ×3 (08:33→17:47)
[2023-09-24] MEDS: Divalproex Sodium 500 MG TABLET.DR PO (08:33)
--- NOTE | 2023-09-24 09:24 | ECG_ITS ---
Test Reason : chest pain Blood Pressure : / mmHG Vent. Rate : 031 BPM Atrial Rate : 031 BPM P-R Int : 146 ms QRS Dur : 094 ms QT Int : 572 ms P-R-T Axes : 032 033 075 degrees QTc Int : 410 ms Marked sinus bradycardia Abnormal ECG When compared with ECG of 24-SEP-2023 00:22, Sinus rhythm No significant changes seen Referred By: Maame Barnett Electronically Signed By:BRENT LEMOS MD
[2023-09-24] MEDS: ondansetron HCL 4 MG/2 ML VIAL IVPUSH ×2 (10:26→17:47)
[2023-09-24 10:40] LABS: Hematocrit 31.7 % (37.0-47.0); Mean Corpuscular HGB Conc 34.7 g/dl (31.0-35.0); Mean Corpuscular Hemoglobin 27.7 pg (27.0-33.0); Mean Corpuscular Volume 79.8 fL (80.0-98.0); Mean Platelet Volume 10.8 fL (9.4-12.3); Platelet Count 100 X10*3/uL (160-400); Red Blood Count 3.97 X10*6/uL (4.20-5.50); White Blood Count 3.2 X10*3/uL (4.8-10.8)
[2023-09-24 11:19] LABS: Anion Gap 8 (12-20); Blood Urea Nitrogen 8 mg/dL (9-16); Calcium 8.7 mg/dL (8.4-10.2); Carbon Dioxide 26 mmol/L (22-29); Chloride 110 mmol/L (96-108); Creatinine Clr Calc Pharmacy 104.5; Estimated Glomerular Filt Rate > 60; Glucose Random 80 mg/dL (60-115); Potassium 3.3 mmol/L (3.3-5.1); Sodium 141 mmol/L (135-145)
[2023-09-24 11:22] LABS: Troponin-I High Sensitivity < 2.7 ng/L (<3.5-17.0)
[2023-09-24 11:38] LABS: TSH reflex Free T4 2.27 uIU/mL (0.32-4.0)
--- NOTE | 2023-09-24 12:27 | HO.PM.IMPN ---
Subjective Subjective Date of Service: 09/24/23 Interval History: seen and examined this morning follow up for bradycardia patient not feeing well, reporting some chest pain no dizziness or sob Review of Systems Review of Systems: Yes all other systems are reviewed and are negative Constitutional Constitutional: Denies chills and Denies fever(s) Cardiovascular Cardiovascular: Reports chest pain, Denies palpitations and Denies dyspnea Respiratory Respiratory: Denies cough and Denies dyspnea Gastrointestinal Gastrointestinal: Denies abdominal pain Endocrine Endocrine: Denies palpitations Physical Exam Vital Signs: Vital Signs: Last Vital Signs Temp 97.7 F 09/24/23 11:19 Pulse 35 L 09/24/23 11:19 Resp 20 09/24/23 11:19 BP 118/66 09/24/23 11:19 Pulse Ox 96 09/24/23 11:19 O2 Del Method Room Air 09/24/23 11:19 O2 Flow Rate 1.5 09/23/23 03:07 BMI result Body Mass Index 24.5 Const: General: cooperative, no acute distress, alert and awake Nutritional Appearance: average body habitus Orientation/consciousness: patient oriented x3 Resp: Effort & Inspection: normal respiratory effort, able to speak in complete sentences, no respiratory distress and no use of accessory muscles Cardio: Rate: bradycardic GI: Inspection: No distended Palpation (GI): Soft to palpation and nontender Neuro: General: patient oriented x3, moves all extremities and CN's II-XI intact bilaterally Extrem: General: Yes no pedal edema Objective Data Active Medications Acetaminophen (Acetaminophen 325 Mg Tablet) 650 mg PO Q6H PRN PRN Reason: Pain, Mild (Pain Scale 1-3) Last Admin: 09/24/23 04:43 Dose: 650 mg Documented By: BRANDON Atropine Sulfate (Atropine Sulfate 1 Mg/10 Ml Syringe) 0.5 mg IVPUSH ONCE PRN PRN Reason: bradycardia Divalproex Sodium (Divalproex Sodium 250 Mg Tablet.) 750 mg PO BEDTIME [facility] Last Admin: 09/23/23 19:53 Dose: 750 mg Documented By: BRANDON Divalproex Sodium (Divalproex Sodium 500 Mg Tablet.) 500 mg PO DAILY [facility] Last Admin: 09/24/23 08:33 Dose: 500 mg Documented By: ANALI Enoxaparin Sodium (Enoxaparin Sodium 40 Mg/0.4 Ml Syringe) 40 mg SUBCUT Q24H [facility] Last Admin: 09/24/23 00:20 Dose: Not Given Documented By: BRANDON Non-Admin Reason: Physician Held Med Fluticasone/Vilanterol (Fluticasone/Vilanterol 100/25 Blst.W.Dev) 1 puff INHALE RDAILY [facility] Last Admin: 09/24/23 07:36 Dose: Not Given Documented By: ARIEL Non-Admin Reason: Patient Refused Hydroxyzine HCl (Hydroxyzine Hcl 25 Mg Tablet) 25 mg PO BID PRN PRN Reason: Anxiety Last Admin: 09/24/23 04:43 Dose: 25 mg Documented By: BRANDON Levetiracetam (Levetiracetam 500 Mg Tablet) 500 mg PO BID [facility] Last Admin: 09/24/23 08:32 Dose: 500 mg Documented By: ANALI Midodrine (Midodrine Hcl 5 Mg Tablet) 5 mg PO TIDWM [facility] Last Admin: 09/24/23 08:33 Dose: 5 mg Documented By: CTROD Ondansetron HCl (Ondansetron Hcl 4 Mg/2 Ml Vial) 4 mg IVPUSH Q8H PRN PRN Reason: Nausea and Vomiting Last Admin: 09/24/23 10:26 Dose: 4 mg Documented By: ANALI Oxycodone HCl (Oxycodone Hcl Immed Release 5 Mg Tablet) 10 mg PO Q4H [facility] Last Admin: 09/24/23 08:33 Dose: 10 mg Documented By: ANALI Oxycodone HCl (Oxycodone Hcl Immed Release 5 Mg Tablet) 10 mg PO Q6H PRN PRN Reason: Pain, Severe (Pain Scale 7-10) Last Admin: 09/24/23 10:25 Dose: 10 mg Documented By: CTROD Senna (Sennosides 8.6 Mg Tablet) 17.2 mg PO BEDTIME PRN PRN Reason: Constipation Sodium Chloride (0.9 % Sodium Chloride Flush 3 Ml Syringe) 3 ml IVFLUSH QSHIFT [facility] Last Admin: 09/24/23 08:32 Dose: 3 ml Documented By: HO.CTORRZ Trazodone HCl (Trazodone Hcl 100 Mg Tablet) 100 mg PO BEDTIME [facility] Last Admin: 09/23/23 19:52 Dose: 100 mg Documented By: BRANDON Labs 09/24/23 10:27 09/24/23 10:27 Labs: Laboratory Results - last 24 hr 09/24/23 09/24/23 00:54 10:27 MCV 79.8 L MCH 27.7 MCHC 34.7 RDW 14.0 Plt Count 100 L MPV 10.8 Absolute Nucleated RBC 0.000 Nucleated RBC % (auto) 0.0 Anion Gap 8 L Estim Creat Clear Calc 104.5 Estimated GFR > 60 Random Glucose 80 Calcium 8.7 Troponin I High Sens < 2.7 < 2.7 TSH 2.27 Microbiology Microbiology Results: Microbiology 09/21/23 13:02 Blood Culture - Preliminary Blood - Venous No growth after 48 hours. 09/21/23 12:38 Blood Culture - Preliminary Blood - Venous No growth after 48 hours. Assessment and Plan (1) Sinus bradycardia: Status: Acute Plan 48-year-old female, with a history of seizure disorder, asthma, opiate use disorder, and recent left ankle surgery admitted for ABDIRAHMAN and possible breakthrough seizure activity Bradycardia persistent severe bradycardia, HR in 20s-30s. TSH normal. plan for PM timing TBD, possibly today continue to hold methadone for now NPO Hypotension continue midodrine to 5 mg t.i.d. for now plan for PM placement as above Acute kidney injury Resolved with aggressive volume repletion. thrombocytopenia chronic likely r/t depakote follow CBC Petit mal seizure disorder None since admission -continue [place]rake depakote -seizure precautions -seen by neurology, rec to continue current meds, outpatient follow up; EEG without seizure activity Fracture left medial malleolus/fibula s/p ORIF 08/04/23 with routine healing -continue oxycodone prn, hold indomethacin Opioid dependence -continue to hold methadone as above -oxycodone to cover withdrawal -addiction medicine following lovenox Full code continue hospital stay for management of ABDIRAHMAN, bradycardia, hypotension on IVF requiring close monitoring of renal function/lytes. Quality Stroke Does the patient have a stroke diagnosis?: No VTE Prior VTE?: No VTE Risk Level:: Medical - moderate - high VTE Device Contraindication: Treatment Not Indicated VTE Drug Contraindication: N/A - Med Ordered
--- NOTE | 2023-09-24 12:33 | PM.PNCARD ---
Subjective Subjective Date of Service: 09/24/23 Principal diagnosis: Sinus bradycardia, hypertension. Interval history: Patient remains significantly bradycardic with heart rate in the 20s. Had a pause overnight up to 3.4 seconds post PAC. Patient has no symptoms related to it. Blood pressures improved. Kidney function is improved. She has been off methadone for 3 days. Noted consult with shipping and receiving specialist and they recommend the patient should be on methadone therapy given her prior history and for addiction recovery Review of Systems Constitutional: Reports no additional constitutional complaints Cardiovascular: Reports no additional cardiovascular complaints Respiratory: Reports no additional respiratory complaints Musculoskeletal: Reports no additional musculoskeletal complaints Physical Exam Vital Signs: Last Vital Signs Temp 97.7 F 09/24/23 11:19 Pulse 35 L 09/24/23 11:19 Resp 20 09/24/23 11:19 BP 118/66 09/24/23 11:19 Pulse Ox 96 09/24/23 11:19 O2 Del Method Room Air 09/24/23 11:19 O2 Flow Rate 1.5 09/23/23 03:07 BMI result Body Mass Index 24.5 Const General: cooperative, comfortable, no acute distress, alert and awake Nutritional Appearance: average body habitus Orientation/consciousness: patient oriented x3 HEENT Head: Yes normocephalic and Yes atraumatic Neck Neck: Yes trachea midline, Yes supple and Yes no JVD Resp Effort & Inspection: normal respiratory effort Auscultation: clear to auscultation bilaterally Cardio Jugular venous distension: no JVD Rate: bradycardic Rhythm: regular rhythm Heart sounds: S1 normal heart sound present, S2 normal heart sound present, no click, no gallops, no murmurs and no rubs GI Auscultation: normal bowel sounds Skin General skin exam: no rashes or lesions noted Neuro General: patient oriented x3 and no focal motor deficits Extrem General: Yes no clubbing, cyanosis or edema Objective Labs and Meds 09/24/23 10:27 09/24/23 10:27 Lab results: Laboratory Results - last 24 hr 09/24/23 09/24/23 00:54 10:27 WBC 3.2 L RBC 3.97 L Hgb 11.0 L Hct 31.7 L MCV 79.8 L MCH 27.7 MCHC 34.7 RDW 14.0 Plt Count 100 L MPV 10.8 Absolute Nucleated RBC 0.000 Nucleated RBC % (auto) 0.0 Sodium 141 Potassium 3.3 D Chloride 110 H Carbon Dioxide 26 Anion Gap 8 L BUN 8 L Creatinine 0.76 Estim Creat Clear Calc 104.5 Estimated GFR > 60 Random Glucose 80 Calcium 8.7 Troponin I High Sens < 2.7 < 2.7 TSH 2.27 Progress Note: A&P Assessment and plan (1) Sinus bradycardia: Status: Acute Assessment and Plan: Marked sinus bradycardia suggestive sinoatrial charles dysfunction. TSH is within normal limits. Unlikely metabolic cause for sinoatrial charles dysfunction. She requires methadone therapy in the future for her addiction recovery. This puts her at risk for developing bradycardia induced torsades. I think it is reasonable to pursue pacemaker therapy given her significant sinus bradycardia. This was discussed with her and her mother. Also discussed with EPS and they agree. Will try to schedule it later today or tomorrow. Keep NPO for now and will discuss depending on the availability of the implanting physician. (2) Syncope: Status: Acute Assessment and Plan: Syncope on admission with hypotension. This appears more orthostatic in nature. The blood pressure is now corrected with IV fluids and with midodrine therapy. Continue midodrine therapy and maintaining adequate hydration. Will continue to follow with you Time Spent With Patient Time: Total time managing care of this patient today ____ minutes. Progress Note: Quality Stroke Does the patient have a stroke diagnosis?: No Procedures Date of Service Date of Service: 09/24/23
--- NOTE | 2023-09-24 15:38 | P.PNADD_ITS ---
Subjective Subjective Date of Service: 09/24/23 Reason For Visit: marino, seizure Interim History: Patient seen in follow up Has not had methadone since 09/20 HR still in the low 30s and overnight 20s Oxycodone scheduled q 4 with q6 PRN available Seen in room 457. Mother at bedside. Patient awake, alert, appearing tired and verbalizing frustration She has been NPO all day and will remain NPO this evening in anticipation of PM tmrw (09/24) In terms of withdrawal--she feels scheduled oxycodone is effective for about 3 hours, then it wears off and I am achy everywhere Review of Systems Acute medical concerns: Yes Medical Review of Systems: unchanged Mental Status Exam Mental Status Exam Level of Consciousness: Awake, Appropriate and Alert Patient Behavior: Appropriate Affect Description: Blunted (irritable ) Speech Pattern: Clear Diagnostics Vital Signs (24Hr): Vital Signs - 24 hr 09/23/23 19:46 09/23/23 23:49 09/24/23 00:00 Temperature Pulse Rate 32 L 28 L 28 L Respiratory Rate 16 Blood Pressure 112/60 114/56 L Pulse Oximetry 94 Oxygen Delivery Method Room Air 09/24/23 04:00 09/24/23 07:18 09/24/23 09:16 Temperature 97.1 F Pulse Rate 41 L 66 30 L Respiratory Rate 20 Blood Pressure 110/60 118/78 118/58 L Pulse Oximetry 96 Oxygen Delivery Method Room Air 09/24/23 11:19 09/24/23 15:22 Temperature 97.7 F 98.0 F Pulse Rate 35 L 37 L Respiratory Rate 20 18 Blood Pressure 118/66 119/58 L Pulse Oximetry 96 94 Oxygen Delivery Method Room Air Room Air BMI result Body Mass Index 24.5 Labs 09/24/23 10:27 09/24/23 10:27 Labs: Laboratory Results - last 48 hr 09/23/23 09/24/23 09/24/23 01:23 00:54 10:27 WBC 3.1 L 3.2 L RBC 4.00 L 3.97 L Hgb 11.2 L 11.0 L Hct 32.7 L 31.7 L MCV 81.8 79.8 L MCH 28.0 27.7 MCHC 34.3 34.7 RDW 14.0 14.0 Plt Count 103 L 100 L MPV 10.0 10.8 Immature Gran % (Auto) 0.3 Neut % (Auto) 45.4 Lymph % (Auto) 45.0 H Clay % (Auto) 8.0 Eos % (Auto) 1.0 Baso % (Auto) 0.3 Lymph # (Auto) 1.4 Clay # (Auto) 0.3 Eos # (Auto) 0.0 Baso # (Auto) 0.0 Abs Immat Gran (auto) 0.01 Absolute Neuts (auto) 1.4 L Absolute Nucleated RBC 0.000 0.000 Nucleated RBC % (auto) 0.0 0.0 Sodium 142 141 Potassium 5.0 3.3 D Chloride 109 H 110 H Carbon Dioxide 26 26 Anion Gap 12 8 L BUN 14 8 L Creatinine 0.83 0.76 Estim Creat Clear Calc 95.6 104.5 Estimated GFR > 60 > 60 Random Glucose 84 80 Calcium 9.1 8.7 Magnesium 1.6 Troponin I High Sens < 2.7 < 2.7 TSH 2.27 Imaging Radiology Impressions: ITS Impressions Chest X-Ray 09/21/23 12:06 IMPRESSION: No acute abnormality. Head CT 09/21/23 12:12 IMPRESSION: No evidence of intracranial mass, hemorrhage or infarction. No acute intracranial pathology compared to 08/27/2023 Abdomen/Pelvis CT 09/21/23 14:46 IMPRESSION: Possible 3 mm nonobstructing calculus in the distal right ureter. No hydronephrosis. Constipation. Medications Medications Current Medications Acetaminophen (Acetaminophen 325 Mg Tablet) 650 mg PO Q6H PRN PRN Reason: Pain, Mild (Pain Scale 1-3) Last Admin: 09/24/23 04:43 Dose: 650 mg Atropine Sulfate (Atropine Sulfate 1 Mg/10 Ml Syringe) 0.5 mg IVPUSH ONCE PRN PRN Reason: bradycardia Divalproex Sodium (Divalproex Sodium 250 Mg Tablet.) 750 mg PO BEDTIME [facility] Last Admin: 09/23/23 19:53 Dose: 750 mg Divalproex Sodium (Divalproex Sodium 500 Mg Tablet.) 500 mg PO DAILY [facility] Last Admin: 09/24/23 08:33 Dose: 500 mg Enoxaparin Sodium (Enoxaparin Sodium 40 Mg/0.4 Ml Syringe) 40 mg SUBCUT Q24H [facility] Last Admin: 09/24/23 00:20 Dose: Not Given Fluticasone/Vilanterol (Fluticasone/Vilanterol 100/25 Blst.W.Dev) 1 puff INHALE RDAILY [facility] Last Admin: 09/24/23 07:36 Dose: Not Given Hydroxyzine HCl (Hydroxyzine Hcl 25 Mg Tablet) 25 mg PO BID PRN PRN Reason: Anxiety Last Admin: 09/24/23 04:43 Dose: 25 mg Levetiracetam (Levetiracetam 500 Mg Tablet) 500 mg PO BID [facility] Last Admin: 09/24/23 08:32 Dose: 500 mg Midodrine (Midodrine Hcl 5 Mg Tablet) 5 mg PO TIDWM [facility] Last Admin: 09/24/23 12:43 Dose: 5 mg Ondansetron HCl (Ondansetron Hcl 4 Mg/2 Ml Vial) 4 mg IVPUSH Q8H PRN PRN Reason: Nausea and Vomiting Last Admin: 09/24/23 10:26 Dose: 4 mg Oxycodone HCl (Oxycodone Hcl Immed Release 5 Mg Tablet) 10 mg PO Q6H PRN PRN Reason: Pain, Severe (Pain Scale 7-10) Last Admin: 09/24/23 10:25 Dose: 10 mg Oxycodone HCl (Oxycodone Hcl Immed Release 15 Mg Tablet) 15 mg PO Q4H [facility] Senna (Sennosides 8.6 Mg Tablet) 17.2 mg PO BEDTIME PRN PRN Reason: Constipation Sodium Chloride (0.9 % Sodium Chloride Flush 3 Ml Syringe) 3 ml IVFLUSH QSHIFT [facility] Last Admin: 09/24/23 08:32 Dose: 3 ml Trazodone HCl (Trazodone Hcl 100 Mg Tablet) 100 mg PO BEDTIME [facility] Last Admin: 09/23/23 19:52 Dose: 100 mg Allergies Allergies Allergy/AdvReac Type Severity Reaction Status Date / Time amoxicillin [AMOXICILLIN] Allergy Intermediate RASH Verified 09/03/23 09:19 Penicillins [PENICILLINS] Allergy Intermediate RASH Verified 09/03/23 09:19 Assessment & Plan Assessment & Plan (1) Opioid use disorder: Status: Acute Code(s): F11.90 - Opioid use, unspecified, uncomplicated Assessment and Plan: * scheduled oxycodone dose increased to 15mg * PRN dose still active * plan to resume methadone following pacemaker (2) Sinus bradycardia: Status: Acute Code(s): R00.1 - Bradycardia, unspecified Total time managing care of this patient today __25__ minutes.
[2023-09-24] MEDS: oxyCODONE HCl Immed Release 15 MG TABLET PO ×2 (15:49→19:50)
--- NOTE | 2023-09-24 19:16 | PC.NURSE ---
heart rate down to 28 , pt alert and oriented x 4, no chest pain , no sob, shivering , Temp 96.8 ,. Gale Barnett notifed no new orders at this time. Continue monitor for symptomatic bradycardia.
[2023-09-24] MEDS: Divalproex Sodium 250 MG TABLET.DR 750 MG PO (19:49)
[2023-09-24] MEDS: traZODone HCL 100 MG TABLET PO (19:52)
--- NOTE | 2023-09-24 21:46 | PC.NURSE ---
oxygen saturation 88% while sleeping on RA, Oxygen 2 l applied , DR Grigsby was notified , O2 order in place , Oxygen saturation 93% now
[2023-09-25] VITALS (9 sets, daily range): BP systolic 94–144; BP diastolic 7–84; PULSE 41–77; RESP 18–21; TEMP 36.2–36.9; O2SAT 92–98
[2023-09-25] MEDS: oxyCODONE HCl Immed Release 15 MG TABLET PO ×4 (00:17→23:54)
[2023-09-25] MEDS: 0.9 % Sodium Chloride Flush 3 ML SYRINGE IVFLUSH ×3 (00:19→19:47)
[2023-09-25 06:09] LABS: Hematocrit 32.1 % (37.0-47.0); Mean Corpuscular HGB Conc 34.3 g/dl (31.0-35.0); Mean Corpuscular Volume 81.7 fL (80.0-98.0); Mean Platelet Volume 11.2 fL (9.4-12.3); Red Blood Count 3.93 X10*6/uL (4.20-5.50); Red Cell Distribution Width 14.3 % (11.0-16.0); White Blood Count 2.8 X10*3/uL (4.8-10.8)
[2023-09-25 06:18] LABS: Anion Gap 12 (12-20); Blood Urea Nitrogen 10 mg/dL (9-16); Calcium 8.5 mg/dL (8.4-10.2); Carbon Dioxide 24 mmol/L (22-29); Chloride 111 mmol/L (96-108); Creatinine Clr Calc Pharmacy 85.3; Estimated Glomerular Filt Rate > 60; Glucose Random 80 mg/dL (60-115); Potassium 3.5 mmol/L (3.3-5.1); Sodium 143 mmol/L (135-145)
[2023-09-25] MEDS: Morphine Sulfate 2 MG/ML CARTRIDGE 1 MG IVPUSH (06:20)
[2023-09-25 06:32] LABS: Platelet Count 96 X10*3/uL (160-400)
[2023-09-25] MEDS: Fluticasone/Vilanterol 100/25 BLST.W.DEV 1 PUFF INHALE (08:08)
[2023-09-25] MEDS: Midodrine HCl 5 MG TABLET PO ×3 (08:49→17:53)
[2023-09-25] MEDS: levETIRAcetam 500 MG TABLET PO ×2 (08:49→19:46)
[2023-09-25] MEDS: Divalproex Sodium 500 MG TABLET.DR PO (08:49)
[2023-09-25] MEDS: Acetaminophen 325 MG TABLET 650 MG PO (08:51)
--- NOTE | 2023-09-25 09:57 | P.PNIM_ITS ---
Subjective Subjective Date of Service: 09/25/23 Interval History: seen and examined this morning follow up for bradycardia no overnight events plan for pacemaker today Review of Systems Review of Systems: Yes all other systems are reviewed and are negative Constitutional Constitutional: Denies chills and Denies fever(s) ENT Ears, Nose, Mouth, and Throat: Denies dizziness Cardiovascular Cardiovascular: Denies chest pain, Denies palpitations and Denies dyspnea Respiratory Respiratory: Denies dyspnea Gastrointestinal Gastrointestinal: Denies abdominal pain Neurologic Neurologic: Denies dizziness Endocrine Endocrine: Denies palpitations Physical Exam 2 Vital Signs: Vital Signs: Last Vital Signs Temp 97.7 F 09/25/23 07:19 Pulse 74 09/25/23 07:19 Resp 20 09/25/23 07:19 BP 94/51 L 09/25/23 07:19 Pulse Ox 94 09/25/23 07:19 O2 Del Method Room Air 09/25/23 07:19 O2 Flow Rate 2 09/24/23 23:44 BMI result Body Mass Index 24.5 Const: General: cooperative, no acute distress, alert and awake Nutritional Appearance: average body habitus Orientation/consciousness: patient oriented x3 Resp: Effort & Inspection: normal respiratory effort, able to speak in complete sentences, no respiratory distress and no use of accessory muscles Cardio: Rate: bradycardic GI: Inspection: No distended Palpation (GI): Soft to palpation and nontender Neuro: General: patient oriented x3, moves all extremities and CN's II-XI intact bilaterally Extrem: General: Yes no pedal edema Objective Data Active Medications Acetaminophen (Acetaminophen 325 Mg Tablet) 650 mg PO Q6H PRN PRN Reason: Pain, Mild (Pain Scale 1-3) Last Admin: 09/25/23 08:51 Dose: 650 mg Documented By: MARIBEL Atropine Sulfate (Atropine Sulfate 1 Mg/10 Ml Syringe) 0.5 mg IVPUSH ONCE PRN PRN Reason: bradycardia Divalproex Sodium (Divalproex Sodium 250 Mg Tablet.) 750 mg PO BEDTIME [facility] Last Admin: 09/24/23 19:49 Dose: 750 mg Documented By: SHIMA Divalproex Sodium (Divalproex Sodium 500 Mg Tablet.) 500 mg PO DAILY [facility] Last Admin: 09/25/23 08:49 Dose: 500 mg Documented By: MARIBEL Enoxaparin Sodium (Enoxaparin Sodium 40 Mg/0.4 Ml Syringe) 40 mg SUBCUT Q24H [facility] Last Admin: 09/24/23 22:43 Dose: Not Given Documented By: SHIMA Non-Admin Reason: Patient Refused Fluticasone/Vilanterol (Fluticasone/Vilanterol 100/25 Blst.W.Dev) 1 puff INHALE RDAILY [facility] Last Admin: 09/25/23 08:08 Dose: 1 puff Documented By: LOTTIE Hydroxyzine HCl (Hydroxyzine Hcl 25 Mg Tablet) 25 mg PO BID PRN PRN Reason: Anxiety Last Admin: 09/24/23 04:43 Dose: 25 mg Documented By: PETE-RIVMAO Levetiracetam (Levetiracetam 500 Mg Tablet) 500 mg PO BID [facility] Last Admin: 09/25/23 08:49 Dose: 500 mg Documented By: MARIBEL Midodrine (Midodrine Hcl 5 Mg Tablet) 5 mg PO TIDWM [facility] Last Admin: 09/25/23 08:49 Dose: 5 mg Documented By: MARIBEL Ondansetron HCl (Ondansetron Hcl 4 Mg/2 Ml Vial) 4 mg IVPUSH Q8H PRN PRN Reason: Nausea and Vomiting Last Admin: 09/24/23 17:47 Dose: 4 mg Documented By: SHIMA Oxycodone HCl (Oxycodone Hcl Immed Release 5 Mg Tablet) 10 mg PO Q6H PRN PRN Reason: Pain, Severe (Pain Scale 7-10) Last Admin: 09/24/23 10:25 Dose: 10 mg Documented By: CTORRDarius Oxycodone HCl (Oxycodone Hcl Immed Release 15 Mg Tablet) 15 mg PO Q4H [facility] Last Admin: 09/25/23 08:54 Dose: Not Given Documented By: MARIBEL Non-Admin Reason: pt received morphine Senna (Sennosides 8.6 Mg Tablet) 17.2 mg PO BEDTIME PRN PRN Reason: Constipation Sodium Chloride (0.9 % Sodium Chloride Flush 3 Ml Syringe) 3 ml IVFLUSH QSHIFT [facility] Last Admin: 09/25/23 08:53 Dose: 3 ml Documented By: MARIBEL Trazodone HCl (Trazodone Hcl 100 Mg Tablet) 100 mg PO BEDTIME [facility] Last Admin: 09/24/23 19:52 Dose: 100 mg Documented By: SHIMA Labs 09/25/23 05:46 09/25/23 05:46 Labs: Laboratory Results - last 24 hr 09/24/23 09/25/23 10:27 05:46 MCV 79.8 L 81.7 MCH 27.7 28.0 MCHC 34.7 34.3 RDW 14.0 14.3 Plt Count 100 L 96 L MPV 10.8 11.2 Absolute Nucleated RBC 0.000 0.000 Nucleated RBC % (auto) 0.0 0.0 Anion Gap 8 L 12 Estim Creat Clear Calc 104.5 85.3 Estimated GFR > 60 > 60 Random Glucose 80 80 Calcium 8.7 8.5 Troponin I High Sens < 2.7 TSH 2.27 Assessment and Plan (1) Sinus bradycardia: Status: Acute Plan 48-year-old female, with a history of seizure disorder, asthma, opiate use disorder, and recent left ankle surgery admitted for ABDIARHMAN and possible breakthrough seizure activity Bradycardia persistent severe bradycardia due to SA node dysfunction TSH normal continue to hold methadone for now plan for PM today can resume methadone 3/16 Hypotension continue midodrine to 5 mg t.i.d. for now plan for PM placement as above monitor for improvement in blood pressure and discontinue midodrine as bp allows Acute kidney injury Resolved with aggressive volume repletion. leukopenia/thrombocytopenia chronic likely r/t depakote follow CBC Petit mal seizure disorder None since admission continue thai da silva seizure precautions seen by neurology, rec to continue current meds, outpatient follow up; EEG without seizure activity Fracture left medial malleolus/fibula s/p ORIF 08/04/23 with routine healing -continue oxycodone prn, hold indomethacin Opioid dependence continue to hold methadone as above, plan to resume 3/16 oxycodone to cover withdrawal until methadone is resumed addiction medicine following lovenox Full code continue hospital stay for management of bradycardia requiring pacemaker placement Quality Stroke Does the patient have a stroke diagnosis?: No VTE Prior VTE?: No VTE Risk Level:: Medical - moderate - high VTE Device Contraindication: Treatment Not Indicated VTE Drug Contraindication: N/A - Med Ordered
--- NOTE | 2023-09-25 10:10 | PM.PNCARD ---
Subjective Subjective Date of Service: 09/25/23 Principal diagnosis: Sinus bradycardia, syncope Interval history: Patient admitted with syncope. The blood pressures improved on midodrine. Heart rate was better but then again into the 30s. She has no symptoms related to it. Review of Systems Review of Systems Yes all other systems are reviewed and are negative Physical Exam Vital Signs: Last Vital Signs Temp 97.7 F 09/25/23 07:19 Pulse 74 09/25/23 07:19 Resp 20 09/25/23 07:19 BP 94/51 L 09/25/23 07:19 Pulse Ox 94 09/25/23 07:19 O2 Del Method Room Air 09/25/23 07:19 O2 Flow Rate 2 09/24/23 23:44 BMI result Body Mass Index 24.5 Const General: cooperative, comfortable, no acute distress, alert and awake Nutritional Appearance: average body habitus Orientation/consciousness: patient oriented x3 HEENT Head: Yes normocephalic and Yes atraumatic Neck Neck: Yes trachea midline, Yes supple and Yes no JVD Resp Effort & Inspection: normal respiratory effort Auscultation: clear to auscultation bilaterally Cardio Jugular venous distension: no JVD Rate: bradycardic Rhythm: regular rhythm Heart sounds: S1 normal heart sound present, S2 normal heart sound present, no click, no gallops, no murmurs and no rubs GI Auscultation: normal bowel sounds Skin General skin exam: no rashes or lesions noted Neuro General: patient oriented x3 and no focal motor deficits Extrem General: Yes no clubbing, cyanosis or edema Objective Labs and Meds 09/25/23 05:46 09/25/23 05:46 Lab results: Laboratory Results - last 24 hr 09/24/23 09/25/23 10:27 05:46 WBC 3.2 L 2.8 L RBC 3.97 L 3.93 L Hgb 11.0 L 11.0 L Hct 31.7 L 32.1 L MCV 79.8 L 81.7 MCH 27.7 28.0 MCHC 34.7 34.3 RDW 14.0 14.3 Plt Count 100 L 96 L MPV 10.8 11.2 Absolute Nucleated RBC 0.000 0.000 Nucleated RBC % (auto) 0.0 0.0 Sodium 141 143 Potassium 3.3 D 3.5 Chloride 110 H 111 H Carbon Dioxide 26 24 Anion Gap 8 L 12 BUN 8 L 10 Creatinine 0.76 0.93 Estim Creat Clear Calc 104.5 85.3 Estimated GFR > 60 > 60 Random Glucose 80 80 Calcium 8.7 8.5 Troponin I High Sens < 2.7 TSH 2.27 Progress Note: A&P Assessment and plan (1) Sinus bradycardia: Status: Acute Assessment and Plan: Sinus bradycardia suggestive sinoatrial charles dysfunction with significant bradycardia. Patient requires methadone for her opioid addiction.and therefore at risk for torsades. Discussed with electrophysiology. Pacemaker to be implanted later today. Discussed with the patient the risks and benefits. She understands. Follow-up as outpatient. (2) Syncope: Status: Acute Assessment and Plan: Syncope at home which appears to be orthostatic. Advise aggressive oral fluid and salt intake. Continue midodrine therapy. Hopefully with the pacemaker with heart rate improved her blood pressure will also improve as well. Will follow with you Time Spent With Patient Time: Total time managing care of this patient today ____ minutes. Progress Note: Quality Stroke Does the patient have a stroke diagnosis?: No Procedures Date of Service Date of Service: 09/25/23
[2023-09-25 11:32] LABS: HCG Quantitative < 2 mIU/mL
[2023-09-25] MEDS: ondansetron HCL 4 MG/2 ML VIAL IVPUSH (12:38)
--- NOTE | 2023-09-25 13:38 | PC.NURSE ---
IV attempt by author and Melinda Greenberg RN. Insertion by Dr. Person
--- NOTE | 2023-09-25 13:49 | P.CONAN_ITS ---
[facility] Active Problems Active Problems: All Active Problems (Updated 09/22/23 @ 10:01 by Lalit Woody MD) Sinus bradycardia (Acute) Syncope (Acute) ABDIRAHMAN (acute kidney injury) (Acute) Hypoxia (Acute) Opioid use disorder (Acute) Seizure (Acute) Fracture of medial malleolus, left, closed (Acute) Closed left fibular fracture (Acute) Seizure disorder (Acute) Right clavicle fracture (Acute) History of fracture of clavicle (Acute) Asthma (Acute) Past Medical History Medical History Clavicle fracture Narcotic abuse Seizures Asthma COPD (chronic obstructive pulmonary disease) Family History Family history of problems with anesthesia: No Surgical History Surgical History History of ankle surgery (08/05/23) H/O right knee surgery H/O left knee surgery History of Problems with Anesthesia: No Social History Social History Household Members: Family and Other Household Members Other:: father, mother, daughter Housing: House Do you presently have visiting nurse or other home services: Yes Alcohol intake: unknown Patient Tobacco Use Status: Current everyday Tobacco user Tobacco use type: Cigarette e-Cigarette/Vaping Use: Currently Using Second Hand Smoke Exposure: No Substance Use Type: Painkillers and Prescription Drugs Advance Directives Date on File: 07/31/23 service: No Meds Allergies Allergy/AdvReac Type Severity Reaction Status Date / Time amoxicillin [AMOXICILLIN] Allergy Intermediate RASH Verified 09/03/23 09:19 Penicillins [PENICILLINS] Allergy Intermediate RASH Verified 09/03/23 09:19 Active Medications: Current Medications Acetaminophen (Acetaminophen 325 Mg Tablet) 650 mg PO Q6H PRN PRN Reason: Pain, Mild (Pain Scale 1-3) Last Admin: 09/25/23 08:51 Dose: 650 mg Atropine Sulfate (Atropine Sulfate 1 Mg/10 Ml Syringe) 0.5 mg IVPUSH ONCE PRN PRN Reason: bradycardia Divalproex Sodium (Divalproex Sodium 250 Mg Tablet.) 750 mg PO BEDTIME [facility] Last Admin: 09/24/23 19:49 Dose: 750 mg Divalproex Sodium (Divalproex Sodium 500 Mg Tablet.) 500 mg PO DAILY [facility] Last Admin: 09/25/23 08:49 Dose: 500 mg Enoxaparin Sodium (Enoxaparin Sodium 40 Mg/0.4 Ml Syringe) 40 mg SUBCUT Q24H [facility] Last Admin: 09/24/23 22:43 Dose: Not Given Fluticasone/Vilanterol (Fluticasone/Vilanterol 100/25 Blst.W.Dev) 1 puff INHALE RDAILY [facility] Last Admin: 09/25/23 08:08 Dose: 1 puff Hydroxyzine HCl (Hydroxyzine Hcl 25 Mg Tablet) 25 mg PO BID PRN PRN Reason: Anxiety Last Admin: 09/24/23 04:43 Dose: 25 mg Levetiracetam (Levetiracetam 500 Mg Tablet) 500 mg PO BID [facility] Last Admin: 09/25/23 08:49 Dose: 500 mg Midodrine (Midodrine Hcl 5 Mg Tablet) 5 mg PO TIDWM [facility] Last Admin: 09/25/23 12:38 Dose: 5 mg Ondansetron HCl (Ondansetron Hcl 4 Mg/2 Ml Vial) 4 mg IVPUSH Q8H PRN PRN Reason: Nausea and Vomiting Last Admin: 09/25/23 12:38 Dose: 4 mg Oxycodone HCl (Oxycodone Hcl Immed Release 5 Mg Tablet) 10 mg PO Q6H PRN PRN Reason: Pain, Severe (Pain Scale 7-10) Last Admin: 09/24/23 10:25 Dose: 10 mg Oxycodone HCl (Oxycodone Hcl Immed Release 15 Mg Tablet) 15 mg PO Q4H [facility] Last Admin: 09/25/23 10:59 Dose: 15 mg Senna (Sennosides 8.6 Mg Tablet) 17.2 mg PO BEDTIME PRN PRN Reason: Constipation Sodium Chloride (0.9 % Sodium Chloride Flush 3 Ml Syringe) 3 ml IVFLUSH QSHIFT [facility] Last Admin: 09/25/23 08:53 Dose: 3 ml Trazodone HCl (Trazodone Hcl 100 Mg Tablet) 100 mg PO BEDTIME [facility] Last Admin: 09/24/23 19:52 Dose: 100 mg Home Medications Medication Instructions Recorded Confirmed Last Taken Type divalproex 250 mg tablet,delayed 750 mg PO BEDTIME 07/31/23 09/21/23 09/20/23 History release divalproex 500 mg tablet,delayed 500 mg PO DAILY 07/31/23 09/21/23 09/21/23 History release hydroxyzine HCl 25 mg tablet 25 mg PO BID PRN Anxiety 07/31/23 09/21/23 Unknown History indomethacin 50 mg capsule 50 mg PO BID 07/31/23 09/21/23 09/21/23 History methadone 10 mg/mL oral 120 mg PO DAILY@0900 07/31/23 08/28/23 08/27/23 History concentrate (Methadone Intensol) mometasone-formoterol HFA 100 2 puff inhalation BID 07/31/23 09/21/23 09/21/23 History mcg-5 mcg/actuation aerosol inhaler (Dulera) trazodone 50 mg tablet 100 mg PO BEDTIME 07/31/23 09/21/23 09/20/23 History jytyeqj-lvoqobtzjqimf-zwnrpqea 250 2 tab PO Q6H PRN Migraine Headache 09/21/23 09/21/23 Unknown History mg-250 mg-65 mg tablet (Excedrin Extra Strength) oxycodone 5 mg tablet 5 mg PO Q6H PRN pain 09/21/23 09/21/23 Unknown History Exam Height,Weight and Vital Signs: Height 6 ft Weight 82.024 kg Last Vital Signs Temp 98.2 F 09/25/23 13:38 Pulse 41 L 09/25/23 13:38 Resp 18 09/25/23 13:38 BP 122/61 09/25/23 13:38 Pulse Ox 96 09/25/23 13:38 O2 Del Method Room Air 09/25/23 13:38 O2 Flow Rate 2 09/24/23 23:44 Pertinent Lab Results Pertinent Lab Results: Laboratory Tests 09/21/23 09/21/23 09/21/23 11:55 12:38 12:40 WBC 3.7 L RBC 4.52 Hgb 12.5 Hct 38.4 MCV 85.0 MCH 27.7 MCHC 32.6 RDW 13.9 Plt Count 114 L D MPV 10.8 Immature Gran % (Auto) 0.0 Neut % (Auto) 44.2 L Lymph % (Auto) 44.6 H [place] % (Auto) 9.4 Eos % (Auto) 1.3 Baso % (Auto) 0.5 Lymph # (Auto) 1.7 [place] # (Auto) 0.4 Eos # (Auto) 0.1 Baso # (Auto) 0.0 Abs Immat Gran (auto) 0.00 Absolute Neuts (auto) 1.6 L Absolute Nucleated RBC 0.000 Nucleated RBC % (auto) 0.0 Hold Purple Top PT 12.0 INR 1.0 APTT 30.9 D-Dimer High Sensitivty 423 Hold Blue Top VBG pH VBG pCO2 VBG pO2 VBG HCO3 VBG O2 Saturation VBG Base Excess Sodium 140 Potassium 4.5 Chloride 104 Carbon Dioxide 28 Anion Gap 13 BUN 32 H Creatinine 2.04 H Estim Creat Clear Calc 38.8 Estimated GFR 26 Random Glucose 85 Lactic Acid 0.9 Calcium 9.4 Magnesium 1.8 Total Bilirubin 0.2 Direct Bilirubin < 0.2 AST 13 ALT 11 Alkaline Phosphatase 46 Ammonia Troponin I High Sens Total Protein 5.9 L Albumin 3.5 Lipase 22 TSH Beta HCG, Quant Urine Color Dark Yellow Urine Appearance Cloudy Urine pH 5.0 Ur Specific [place] >= 1.030 H Urine Protein Negative Urine Glucose (UA) Negative Urine Ketones Trace Urine Blood Negative Urine Nitrite Negative Ur Leukocyte Esterase Moderate (2+) H Urine RBC 0-2 Urine WBC 11-20 H Ur Squamous Epith Cells 6-10 Urine Bacteria 3+ Hyaline Casts 3-5 Ur Random Sodium 56.0 Urine Creatinine 320.20 Urine Opiates Screen POSITIVE H Urine Fentanyl Screen Not Detected Ur Barbiturates Screen Not Detected Valproic Acid Ur Phencyclidine Scrn Not Detected Ur Amphetamines Screen Not Detected U Benzodiazepines Scrn Not Detected Urine Cocaine Screen Not Detected U Marijuana (THC) Screen Not Detected Ethyl Alcohol < 10 Influenza Type A (PCR) Influenza Type B (PCR) RSV RNA Qual (PCR) SARS-CoV-2 RNA (RT-PCR) 09/21/23 09/21/23 09/21/23 12:45 12:46 13:02 WBC RBC Hgb Hct MCV MCH MCHC RDW Plt Count MPV Immature Gran % (Auto) Neut % (Auto) Lymph % (Auto) [place] % (Auto) Eos % (Auto) Baso % (Auto) Lymph # (Auto) [place] # (Auto) Eos # (Auto) Baso # (Auto) Abs Immat Gran (auto) Absolute Neuts (auto) Absolute Nucleated RBC Nucleated RBC % (auto) Hold Purple Top PT INR APTT D-Dimer High Sensitivty Hold Blue Top VBG pH 7.40 VBG pCO2 47 VBG pO2 81 VBG HCO3 29 H VBG O2 Saturation 97.0 VBG Base Excess 4.2 Sodium Potassium Chloride Carbon Dioxide Anion Gap BUN Creatinine Estim Creat Clear Calc Estimated GFR Random Glucose Lactic Acid Calcium Magnesium Total Bilirubin Direct Bilirubin AST ALT Alkaline Phosphatase Ammonia 37 Troponin I High Sens < 2.7 Total Protein Albumin Lipase TSH Beta HCG, Quant Urine Color Urine Appearance Urine pH Ur Specific [place] Urine Protein Urine Glucose (UA) Urine Ketones Urine Blood Urine Nitrite Ur Leukocyte Esterase Urine RBC Urine WBC Ur Squamous Epith Cells Urine Bacteria Hyaline Casts Ur Random Sodium Urine Creatinine Urine Opiates Screen Urine Fentanyl Screen Ur Barbiturates Screen Valproic Acid 65.2 Ur Phencyclidine Scrn Ur Amphetamines Screen U Benzodiazepines Scrn Urine Cocaine Screen U Marijuana (THC) Screen Ethyl Alcohol Influenza Type A (PCR) NEGATIVE Influenza Type B (PCR) NEGATIVE RSV RNA Qual (PCR) NEGATIVE SARS-CoV-2 RNA (RT-PCR) NEGATIVE 09/21/23 09/21/23 09/23/23 17:20 17:45 01:23 WBC 3.1 L RBC 4.00 L Hgb 11.2 L Hct 32.7 L MCV 81.8 MCH 28.0 MCHC 34.3 RDW 14.0 Plt Count 103 L MPV 10.0 Immature Gran % (Auto) 0.3 Neut % (Auto) 45.4 Lymph % (Auto) 45.0 H [place] % (Auto) 8.0 Eos % (Auto) 1.0 Baso % (Auto) 0.3 Lymph # (Auto) 1.4 [place] # (Auto) 0.3 Eos # (Auto) 0.0 Baso # (Auto) 0.0 Abs Immat Gran (auto) 0.01 Absolute Neuts (auto) 1.4 L Absolute Nucleated RBC 0.000 Nucleated RBC % (auto) 0.0 Hold Purple Top SEE NOTE PT INR APTT D-Dimer High Sensitivty Hold Blue Top SEE NOTE VBG pH VBG pCO2 VBG pO2 VBG HCO3 VBG O2 Saturation VBG Base Excess Sodium 142 142 Potassium 5.1 5.0 Chloride 108 109 H Carbon Dioxide 30 H 26 Anion Gap 9 L 12 BUN 29 H 14 Creatinine 1.67 H 0.83 Estim Creat Clear Calc 47.5 95.6 Estimated GFR 33 > 60 Random Glucose 114 84 Lactic Acid Calcium 8.9 9.1 Magnesium 1.6 Total Bilirubin Direct Bilirubin AST ALT Alkaline Phosphatase Ammonia Troponin I High Sens < 2.7 Total Protein Albumin Lipase TSH Beta HCG, Quant Urine Color Urine Appearance Urine pH Ur Specific [place] Urine Protein Urine Glucose (UA) Urine Ketones Urine Blood Urine Nitrite Ur Leukocyte Esterase Urine RBC Urine WBC Ur Squamous Epith Cells Urine Bacteria Hyaline Casts Ur Random Sodium Urine Creatinine Urine Opiates Screen Urine Fentanyl Screen Ur Barbiturates Screen Valproic Acid Ur Phencyclidine Scrn Ur Amphetamines Screen U Benzodiazepines Scrn Urine Cocaine Screen U Marijuana (THC) Screen Ethyl Alcohol Influenza Type A (PCR) Influenza Type B (PCR) RSV RNA Qual (PCR) SARS-CoV-2 RNA (RT-PCR) 09/24/23 09/24/23 09/25/23 00:54 10:27 05:46 WBC 3.2 L 2.8 L RBC 3.97 L 3.93 L Hgb 11.0 L 11.0 L Hct 31.7 L 32.1 L MCV 79.8 L 81.7 MCH 27.7 28.0 MCHC 34.7 34.3 RDW 14.0 14.3 Plt Count 100 L 96 L MPV 10.8 11.2 Immature Gran % (Auto) Neut % (Auto) Lymph % (Auto) [place] % (Auto) Eos % (Auto) Baso % (Auto) Lymph # (Auto) [place] # (Auto) Eos # (Auto) Baso # (Auto) Abs Immat Gran (auto) Absolute Neuts (auto) Absolute Nucleated RBC 0.000 0.000 Nucleated RBC % (auto) 0.0 0.0 Hold Purple Top PT INR APTT D-Dimer High Sensitivty Hold Blue Top VBG pH VBG pCO2 VBG pO2 VBG HCO3 VBG O2 Saturation VBG Base Excess Sodium 141 143 Potassium 3.3 D 3.5 Chloride 110 H 111 H Carbon Dioxide 26 24 Anion Gap 8 L 12 BUN 8 L 10 Creatinine 0.76 0.93 Estim Creat Clear Calc 104.5 85.3 Estimated GFR > 60 > 60 Random Glucose 80 80 Lactic Acid Calcium 8.7 8.5 Magnesium Total Bilirubin Direct Bilirubin AST ALT Alkaline Phosphatase Ammonia Troponin I High Sens < 2.7 < 2.7 Total Protein Albumin Lipase TSH 2.27 Beta HCG, Quant Urine Color Urine Appearance Urine pH Ur Specific [place] Urine Protein Urine Glucose (UA) Urine Ketones Urine Blood Urine Nitrite Ur Leukocyte Esterase Urine RBC Urine WBC Ur Squamous Epith Cells Urine Bacteria Hyaline Casts Ur Random Sodium Urine Creatinine Urine Opiates Screen Urine Fentanyl Screen Ur Barbiturates Screen Valproic Acid Ur Phencyclidine Scrn Ur Amphetamines Screen U Benzodiazepines Scrn Urine Cocaine Screen U Marijuana (THC) Screen Ethyl Alcohol Influenza Type A (PCR) Influenza Type B (PCR) RSV RNA Qual (PCR) SARS-CoV-2 RNA (RT-PCR) 09/25/23 10:41 WBC RBC Hgb Hct MCV MCH MCHC RDW Plt Count MPV Immature Gran % (Auto) Neut % (Auto) Lymph % (Auto) [place] % (Auto) Eos % (Auto) Baso % (Auto) Lymph # (Auto) [place] # (Auto) Eos # (Auto) Baso # (Auto) Abs Immat Gran (auto) Absolute Neuts (auto) Absolute Nucleated RBC Nucleated RBC % (auto) Hold Purple Top PT INR APTT D-Dimer High Sensitivty Hold Blue Top VBG pH VBG pCO2 VBG pO2 VBG HCO3 VBG O2 Saturation VBG Base Excess Sodium Potassium Chloride Carbon Dioxide Anion Gap BUN Creatinine Estim Creat Clear Calc Estimated GFR Random Glucose Lactic Acid Calcium Magnesium Total Bilirubin Direct Bilirubin AST ALT Alkaline Phosphatase Ammonia Troponin I High Sens Total Protein Albumin Lipase TSH Beta HCG, Quant < 2 Urine Color Urine Appearance Urine pH Ur Specific [place] Urine Protein Urine Glucose (UA) Urine Ketones Urine Blood Urine Nitrite Ur Leukocyte Esterase Urine RBC Urine WBC Ur Squamous Epith Cells Urine Bacteria Hyaline Casts Ur Random Sodium Urine Creatinine Urine Opiates Screen Urine Fentanyl Screen Ur Barbiturates Screen Valproic Acid Ur Phencyclidine Scrn Ur Amphetamines Screen U Benzodiazepines Scrn Urine Cocaine Screen U Marijuana (THC) Screen Ethyl Alcohol Influenza Type A (PCR) Influenza Type B (PCR) RSV RNA Qual (PCR) SARS-CoV-2 RNA (RT-PCR) Airway Mallampati Class: II TM Dist: >3cm Neck ROM: Full Denture: Upper and Lower Loose/Missing/Broken Teeth: No Heart: khadra rhythm Lungs: cta b/l Assessment and Plan Assessment Anesthesia Assessment: Anesthesia Plan Discussed and Chart Reviewed Final Anesthetic Review Family History of Problems with Anesthesia: No History of Problems with Anesthesia: No NPO: Yes ASA Class: III Patient Risk: High Procedure Risk: Intermediate Anesthetic Plan Anesthetic Plan: MAC: Disposition: Standard PACU
--- NOTE | 2023-09-25 14:34 | PC.NURSE ---
Dr. Person updated regarding lab results from draw this morning. no interventions at this time.
--- NOTE | 2023-09-25 15:25 | MHC.CM.PN ---
EMR reviewed and per MD rounds, pt is not medically cleared for D/C due to management of bradycardia requiring pacemaker placement.
--- NOTE | 2023-09-25 16:23 | PM.EVENT ---
Event Note Date of Service: 09/25/23 Event Note: Addiction follow up Restarting methadone -50mg BID to start -monitor for sedation -d/c scheduled oxycodone -household assistant to follow up over the wknd. Time Spent With Patient Time: Total time managing care of this patient today ____ minutes.
--- NOTE | 2023-09-25 16:52 | W.PM.OPN ---
Operative Note Operative Note Date of Service: 09/25/23 Narrative: NAME OF PROCEDURE: ? 1.???Dual chamber pacemaker ? INDICATION FOR PROCEDURE:??Severe symptomatic bradycardia with need for methadone use. Description of Procedure:?Patient was identified brought to the electrophysiology laboratory in a postabsorptive state.??The left pectoral region was prepped and draped in usual sterile fashion. Incision was made over the and pectoral subcutaneous pocket was made. Afterwards left axillary venous access was obtained using micropuncture needle and fluoroscopic guidance, a 7-[place] sheath was placed.??Right ventricular lead was placed in the right ventricle with good sensing and pacing thresholds.??The sheath was split and the lead was then anchored to the pectoral fascia with silk suture.?? ? Afterwards left axillary venous access was obtained using micropuncture needle and fluoroscopic guidance, a 7-[place] sheath was placed.??Right atrial pacing lead was advanced and placed in the base of the right atrial appendage with good sensing and pacing thresholds.??The sheath was split and the lead was then anchored to the pectoral fascia with silk suture.?? ? The subcutaneous pocket was made and the wound was irrigated with antibiotic solution.??The??leads were then connected to a?pacemaker?generator and placed in the pocket.??The wound was closed with 3 layers of absorbable sutures.?? Patient tolerated procedure well.??There were no complications. ? IMPRESSION:?? Successful?implantation?of Dual chamber?pacemaker? ? ? PLAN: ? 1.?Routine postprocedure monitoring. 2. Bandage on 3 days 3. Dont scrape on the glue on the site 4. No shower 3 days 5. ???Interrogation of device
[2023-09-25] MEDS: HYDROmorphone HCl 0.5 MG/0.5 ML SYRINGE IVPUSH (17:21)
[2023-09-25] MEDS: oxyCODONE HCl Immed Release 5 MG TABLET 10 MG PO (17:53)
[2023-09-25] MEDS: traZODone HCL 100 MG TABLET PO (19:46)
[2023-09-25] MEDS: Divalproex Sodium 250 MG TABLET.DR 750 MG PO (19:47)
[2023-09-26] VITALS (9 sets, daily range): BP systolic 108–170; BP diastolic 56–90; PULSE 60–110; RESP 18–20; TEMP 36.1–36.6; O2SAT 90–97
[2023-09-26] MEDS: oxyCODONE HCl Immed Release 15 MG TABLET PO ×2 (04:58→07:59)
[2023-09-26] MEDS: Fluticasone/Vilanterol 100/25 BLST.W.DEV 1 PUFF INHALE (07:47)
[2023-09-26] MEDS: Midodrine HCl 5 MG TABLET PO (07:59)
[2023-09-26] MEDS: 0.9 % Sodium Chloride Flush 3 ML SYRINGE IVFLUSH ×2 (07:59→20:34)
[2023-09-26] MEDS: Divalproex Sodium 500 MG TABLET.DR PO (07:59)
[2023-09-26] MEDS: levETIRAcetam 500 MG TABLET PO ×2 (07:59→20:33)
[2023-09-26] MEDS: ondansetron HCL 4 MG/2 ML VIAL IVPUSH ×2 (08:05→17:35)
--- NOTE | 2023-09-26 09:43 | P.PNIM_ITS ---
Subjective Subjective Date of Service: 09/26/23 Interval History: seen and examined this morning follow up for bradycardia s/p pacemaker Review of Systems Review of Systems: Yes all other systems are reviewed and are negative Constitutional Constitutional: Denies chills and Denies fever(s) ENT Ears, Nose, Mouth, and Throat: Denies dizziness Cardiovascular Cardiovascular: Denies chest pain, Denies palpitations and Denies dyspnea Respiratory Respiratory: Denies dyspnea Gastrointestinal Gastrointestinal: Denies abdominal pain Neurologic Neurologic: Denies dizziness Endocrine Endocrine: Denies palpitations Physical Exam 2 Vital Signs: Vital Signs: Last Vital Signs Temp 97.0 F 09/26/23 07:41 Pulse 69 09/26/23 07:50 Resp 18 09/26/23 07:50 BP 125/69 09/26/23 07:41 Pulse Ox 95 09/26/23 07:41 O2 Del Method Nasal Cannula 09/26/23 07:41 O2 Flow Rate 3 09/26/23 07:41 Oxygen Flow Rate 2 09/25/23 16:58 BMI result Body Mass Index 24.5 Appearing in no acute distress lung sounds are clear to auscultation heart regular rate rhythm, clear S1, S2 positive bowel sounds, abdomen is soft, nontender neuro patient is alert x3, no focal deficits Cast to LLE Pacemaker Objective Data Active Medications Acetaminophen (Acetaminophen 325 Mg Tablet) 650 mg PO Q6H PRN PRN Reason: Pain, Mild (Pain Scale 1-3) Last Admin: 09/25/23 08:51 Dose: 650 mg Documented By: MARIBEL Atropine Sulfate (Atropine Sulfate 1 Mg/10 Ml Syringe) 0.5 mg IVPUSH ONCE PRN PRN Reason: bradycardia Divalproex Sodium (Divalproex Sodium 250 Mg Donovan.) 750 mg PO BEDTIME [facility] Last Admin: 09/25/23 19:47 Dose: 750 mg Documented By: ESTEFANÍA Divalproex Sodium (Divalproex Sodium 500 Mg Tablet.) 500 mg PO DAILY [facility] [place] Last Admin: 09/26/23 07:59 Dose: 500 mg Documented By: MARIBEL Enoxaparin Sodium (Enoxaparin Sodium 40 Mg/0.4 Ml Syringe) 40 mg SUBCUT Q24H [facility] [place] Last Admin: 09/25/23 23:56 Dose: Not Given Documented By: ESTEFANÍA Non-Admin Reason: Patient Refused Fluticasone/Vilanterol (Fluticasone/Vilanterol 100/25 Blst.W.Dev) 1 puff INHALE RDAILY [facility] [place] Last Admin: 09/26/23 07:47 Dose: 1 puff Documented By: NORA Hydroxyzine HCl (Hydroxyzine Hcl 25 Mg Tablet) 25 mg PO BID PRN PRN Reason: Anxiety Last Admin: 09/24/23 04:43 Dose: 25 mg Documented By: BRANDON Levetiracetam (Levetiracetam 500 Mg Tablet) 500 mg PO BID [facility] [place] Last Admin: 09/26/23 07:59 Dose: 500 mg Documented By: MARIBEL Midodrine (Midodrine Hcl 5 Mg Tablet) 5 mg PO TIDWM [facility] [place] Last Admin: 09/26/23 07:59 Dose: 5 mg Documented By: MARIBEL Ondansetron HCl (Ondansetron Hcl 4 Mg/2 Ml Vial) 4 mg IVPUSH Q8H PRN PRN Reason: Nausea and Vomiting Last Admin: 09/26/23 08:05 Dose: 4 mg Documented By: MARIBEL Oxycodone HCl (Oxycodone Hcl Immed Release 5 Mg Tablet) 10 mg PO Q6H PRN PRN Reason: Pain, Severe (Pain Scale 7-10) Last Admin: 09/25/23 17:53 Dose: 10 mg Documented By: MARIBEL Oxycodone HCl (Oxycodone Hcl Immed Release 15 Mg Tablet) 15 mg PO Q4H [facility] [place] Last Admin: 09/26/23 07:59 Dose: 15 mg Documented By: MARIBEL Senna (Sennosides 8.6 Mg Tablet) 17.2 mg PO BEDTIME PRN PRN Reason: Constipation Sodium Chloride (0.9 % Sodium Chloride Flush 3 Ml Syringe) 3 ml IVFLUSH QSHIFT [facility] Last Admin: 09/26/23 07:59 Dose: 3 ml Documented By: MARIBEL Trazodone HCl (Trazodone Hcl 100 Mg Tablet) 100 mg PO BEDTIME [facility] Last Admin: 09/25/23 19:46 Dose: 100 mg Documented By: ESTEFANÍA Labs 09/25/23 05:46 09/25/23 05:46 Labs: Laboratory Results - last 24 hr 09/25/23 10:41 Beta HCG, Quant < 2 Assessment and Plan (1) Sinus bradycardia: Status: Acute Plan 48-year-old female, with a history of seizure disorder, asthma, opiate use disorder, and recent left ankle surgery admitted for ABDIRAHMAN and possible breakthrough seizure activity Bradycardia persistent severe bradycardia due to SA node dysfunction TSH normal s/p pacemaker 09/25/23, low pacing at 60 Hypotension midodrine stopped BP better Acute kidney injury Resolved with aggressive volume repletion. leukopenia/thrombocytopenia chronic likely r/t depakote follow CBC Petit mal seizure disorder None since admission continue thai da silva seizure precautions seen by neurology, rec to continue current meds, outpatient follow up; EEG without seizure activity Fracture left medial malleolus/fibula s/p ORIF 08/04/23 with routine healing continue oxycodone prn Opioid dependence resume methadone 75 mg daily addiction medicine following lovenox Attending Dr. Finn Full code continue hospital stay for management of bradycardia, s/p pacemaker 09/25/23 Quality Stroke Does the patient have a stroke diagnosis?: No VTE Prior VTE?: No VTE Risk Level:: Medical - moderate - high VTE Device Contraindication: Treatment Not Indicated VTE Drug Contraindication: N/A - Med Ordered
[2023-09-26] MEDS: methADONE HCl 20 MG/2 ML ORAL.CONC 75 MG PO (10:42)
--- NOTE | 2023-09-26 10:59 | PM.PNCARD ---
Subjective Subjective Date of Service: 09/26/23 Principal diagnosis: Sinus bradycardia, syncope Interval history: Patient feeling extremely well with pacer placement. Says while they were checking her pacer today event dropped her heart rate she felt really poorly again. However she feels much better with atrial pacing. Blood pressure is stable. Review of Systems Constitutional: Reports no additional constitutional complaints Physical Exam Vital Signs: Last Vital Signs Temp 97.0 F 09/26/23 07:41 Pulse 60 09/26/23 09:49 Resp 18 09/26/23 07:50 BP 125/69 09/26/23 09:49 Pulse Ox 95 09/26/23 07:41 O2 Del Method Nasal Cannula 09/26/23 07:41 O2 Flow Rate 3 09/26/23 07:41 Oxygen Flow Rate 2 09/25/23 16:58 BMI result Body Mass Index 24.5 Const General: cooperative, comfortable, no acute distress, alert and awake Nutritional Appearance: average body habitus Orientation/consciousness: patient oriented x3 HEENT Head: Yes normocephalic and Yes atraumatic Neck Neck: Yes trachea midline, Yes supple and Yes no JVD Resp Effort & Inspection: normal respiratory effort Auscultation: clear to auscultation bilaterally Cardio Jugular venous distension: no JVD Rate: bradycardic Rhythm: regular rhythm Heart sounds: S1 normal heart sound present, S2 normal heart sound present, no click, no gallops, no murmurs and no rubs GI Auscultation: normal bowel sounds Skin General skin exam: no rashes or lesions noted Neuro General: patient oriented x3 and no focal motor deficits Extrem General: Yes no clubbing, cyanosis or edema Objective Labs and Meds 09/25/23 05:46 09/25/23 05:46 Lab results: Laboratory Results - last 24 hr 09/25/23 10:41 Beta HCG, Quant < 2 Progress Note: A&P Assessment and plan (1) Sinus bradycardia: Status: Acute Assessment and Plan: Sinus bradycardia suggestive sinoatrial charles dysfunction with much improved symptoms since pacing. Patient's pacemaker is working well. From cardiac perspective she can discharged home and will set up for outpatient follow-up for wound check as well as pacer check. Can resume methadone therapy as well. Patient is very happy with overall feeling much better. (2) Syncope: Status: Acute Assessment and Plan: Syncope which appears to be multifactorial at this point time. Initially felt to be orthostatic hypotension but now appears to be also contributed by his sinoatrial charles dysfunction. A blood pressure is stabilized on midodrine therapy and continue the same. Continue push fluids. Pacemaker is working well. Will sign of the case and follow-up as outpatient. Thank you for allowing me to partake in her care Time Spent With Patient Time: Total time managing care of this patient today ____ minutes. Progress Note: Quality Stroke Does the patient have a stroke diagnosis?: No Procedures Date of Service Date of Service: 09/26/23
[2023-09-26] MEDS: oxyCODONE HCl Immed Release 5 MG TABLET 10 MG PO (11:54)
--- NOTE | 2023-09-26 14:32 | MHC.RECOVRN ---
Met with pt to follow up regarding methadone dosing. Pt sitting in bed, awake, alert, easily engages in conversation, pleasant. Pt reports feeling much better since pacemaker. Pt reports she no longer has tightness/heavy feeling in her chest and is looking at this situation as a blessing. Pt received 75 mg methadone this morning after discussing with provider. Pt reports she does not wish to exceed 75 mg total daily dose of methadone. Pt reports she wishes to utilize trazodone to sleep, 100 mg, and not receive an evening dose of methadone. Pt reports prior to surgery only taking 50 mg trazodone, however, would like to try the 100 mg dose since she is not going to receive a second dose of methadone. Pt feels that this is a positive decision and is hopeful that methadone in the am and trazodone in the pm will be effective. Pt reports pain is adequately managed with prn oxycodone. Pt denies other questions or concerns for t/w.
[2023-09-26] MEDS: oxyCODONE HCl Immed Release 5 MG TABLET PO ×2 (14:59→20:32)
[2023-09-26] MEDS: Acetaminophen 325 MG TABLET 650 MG PO (14:59)
--- NOTE | 2023-09-26 15:11 | HO.POSTANES ---
Post Anesthesia Evaluation Post Anesthesia Evaluation Date of Service: 09/26/23 Vital Signs: Vital Signs Temp Pulse Resp BP Pulse Ox O2 Del Method O2 Flow Rate 09/26/23 14:02 92 Room Air 09/26/23 11:28 97.7 F 61 18 110/56 L 93 Room Air 09/26/23 09:49 60 125/69 09/26/23 07:50 69 18 09/26/23 07:41 97.0 F 60 18 125/69 95 Nasal Cannula 3 Anesthesia: Monitored Mental Status: Awake Pain Control: Satisfactory Nausea/Vomiting: None Hydration: Adequate Anesthesia-Related Issues: No Anes. Related Issues
[2023-09-26] MEDS: Divalproex Sodium 250 MG TABLET.DR 750 MG PO (20:33)
[2023-09-26] MEDS: traZODone HCL 100 MG TABLET PO (20:33)
[2023-09-26] MEDS: Metoclopramide HCl 10 MG/2 ML VIAL 5 MG IVPUSH (21:03)
[2023-09-27] VITALS (9 sets, daily range): BP systolic 102–131; BP diastolic 57–71; PULSE 63–87; RESP 18–20; TEMP 36.1–37.2; O2SAT 90–99
[2023-09-27] MEDS: oxyCODONE HCl Immed Release 5 MG TABLET PO (04:26)
[2023-09-27] MEDS: Fluticasone/Vilanterol 100/25 BLST.W.DEV 1 PUFF INHALE (07:40)
[2023-09-27] MEDS: Acetaminophen 325 MG TABLET 650 MG PO ×2 (08:56→15:01)
[2023-09-27] MEDS: Divalproex Sodium 500 MG TABLET.DR PO (08:57)
[2023-09-27] MEDS: methADONE HCl 20 MG/2 ML ORAL.CONC 75 MG PO (08:57)
[2023-09-27] MEDS: levETIRAcetam 500 MG TABLET PO ×2 (08:57→21:21)
[2023-09-27] MEDS: 0.9 % Sodium Chloride Flush 3 ML SYRINGE IVFLUSH ×2 (08:58→15:02)
--- NOTE | 2023-09-27 10:37 | P.PNIM_ITS ---
Subjective Subjective Date of Service: 09/27/23 Interval History: seen and examined this morning follow up for bradycardia s/p pacemaker Review of Systems Review of Systems: Yes all other systems are reviewed and are negative Constitutional Constitutional: Denies chills and Denies fever(s) ENT Ears, Nose, Mouth, and Throat: Denies dizziness Cardiovascular Cardiovascular: Denies chest pain, Denies palpitations and Denies dyspnea Respiratory Respiratory: Denies dyspnea Gastrointestinal Gastrointestinal: Denies abdominal pain Neurologic Neurologic: Denies dizziness Endocrine Endocrine: Denies palpitations Physical Exam 2 Vital Signs: Vital Signs: Last Vital Signs Temp 96.9 F 09/27/23 07:59 Pulse 78 09/27/23 07:59 Resp 20 09/27/23 07:59 BP 102/57 L 09/27/23 07:59 Pulse Ox 96 09/27/23 07:59 O2 Del Method Nasal Cannula 09/27/23 07:59 O2 Flow Rate 2 09/27/23 07:59 Oxygen Flow Rate 2 09/25/23 16:58 BMI result Body Mass Index 24.5 Appearing in no acute distress lung sounds are clear to auscultation heart regular rate rhythm, clear S1, S2 positive bowel sounds, abdomen is soft, nontender neuro patient is alert x3, no focal deficits Cast to LLE Objective Data Active Medications Acetaminophen (Acetaminophen 325 Mg Tablet) 650 mg PO Q6H PRN PRN Reason: Pain, Mild (Pain Scale 1-3) Last Admin: 09/27/23 08:56 Dose: 650 mg Documented By: ABILIO Atropine Sulfate (Atropine Sulfate 1 Mg/10 Ml Syringe) 0.5 mg IVPUSH ONCE PRN PRN Reason: bradycardia Divalproex Sodium (Divalproex Sodium 250 Mg Tablet.) 750 mg PO BEDTIME [facility] Last Admin: 09/26/23 20:33 Dose: 750 mg Documented By: ESTEFANÍA Divalproex Sodium (Divalproex Sodium 500 Mg Tablet.) 500 mg PO DAILY [facility] Last Admin: 09/27/23 08:57 Dose: 500 mg Documented By: ABILIO Enoxaparin Sodium (Enoxaparin Sodium 40 Mg/0.4 Ml Syringe) 40 mg SUBCUT Q24H [facility] Last Admin: 09/26/23 21:17 Dose: Not Given Documented By: ESTEFANÍA Non-Admin Reason: Patient Refused Fluticasone/Vilanterol (Fluticasone/Vilanterol 100/25 Blst.W.Dev) 1 puff INHALE RDAILY [facility] Last Admin: 09/27/23 07:40 Dose: 1 puff Documented By: HAL Hydroxyzine HCl (Hydroxyzine Hcl 25 Mg Tablet) 25 mg PO BID PRN PRN Reason: Anxiety Last Admin: 09/24/23 04:43 Dose: 25 mg Documented By: PETE-RIVMAO Levetiracetam (Levetiracetam 500 Mg Tablet) 500 mg PO BID [facility] Last Admin: 09/27/23 08:57 Dose: 500 mg Documented By: ABILIO Methadone HCl (Methadone Hcl 20 Mg/2 Ml Oral.Conc) 75 mg PO DAILY [facility] Last Admin: 09/27/23 08:57 Dose: 75 mg Documented By: ABILIO Ondansetron HCl (Ondansetron Hcl 4 Mg/2 Ml Vial) 4 mg IVPUSH Q8H PRN PRN Reason: Nausea and Vomiting Last Admin: 09/26/23 17:35 Dose: 4 mg Documented By: DAREN Oxycodone HCl (Oxycodone Hcl Immed Release 5 Mg Tablet) 10 mg PO BID PRN PRN Reason: Pain, Moderate(Pain Scale 4-6) Senna (Sennosides 8.6 Mg Tablet) 17.2 mg PO BEDTIME PRN PRN Reason: Constipation Sodium Chloride (0.9 % Sodium Chloride Flush 3 Ml Syringe) 3 ml IVFLUSH QSHIFT [facility] Last Admin: 09/27/23 08:58 Dose: 3 ml Documented By: ABILIO Trazodone HCl (Trazodone Hcl 100 Mg Tablet) 100 mg PO BEDTIME [facility] Last Admin: 09/26/23 20:33 Dose: 100 mg Documented By: ESTEFANÍA Trolamine Salicylate (Trolamine Salicylate 10 % Cream 85 Gm Tube) 1 appl TOPICAL BID PRN; Protocol PRN Reason: Pain, Mild (Pain Scale 1-3) Labs 09/25/23 05:46 09/25/23 05:46 Microbiology Microbiology Results: Microbiology 09/21/23 13:02 Blood Culture - Final Blood - Venous No growth after 5 days. 09/21/23 12:38 Blood Culture - Final Blood - Venous No growth after 5 days. Assessment and Plan (1) Sinus bradycardia: Status: Acute Plan 48-year-old female, with a history of seizure disorder, asthma, opiate use disorder, and recent left ankle surgery admitted for ABDIRAHMAN and possible breakthrough seizure activity Bradycardia. Resolved due to SA node dysfunction TSH normal s/p pacemaker 09/25/23, low pacing at 60 Hypotension. Resolved midodrine stopped BP better Acute kidney injury Resolved with aggressive volume repletion. leukopenia/thrombocytopenia chronic likely r/t depakote follow CBC Petit mal seizure disorder None since admission continue thai da silva seizure precautions seen by neurology, rec to continue current meds, outpatient follow up; EEG without seizure activity Fracture left medial malleolus/fibula s/p ORIF 08/04/23 with routine healing continue oxycodone prn Opioid dependence resume methadone 50mg BID addiction medicine following inezx Attending Dr. Finn Full code DISPO dc home with PT when medically clear continue hospital stay for management of bradycardia, s/p pacemaker 09/25/23 Quality Stroke Does the patient have a stroke diagnosis?: No VTE Prior VTE?: No VTE Risk Level:: Medical - moderate - high VTE Device Contraindication: Treatment Not Indicated VTE Drug Contraindication: N/A - Med Ordered
[2023-09-27] MEDS: oxyCODONE HCl Immed Release 5 MG TABLET 10 MG PO ×2 (11:20→23:31)
--- NOTE | 2023-09-27 13:45 | MHC.RECOVRN ---
Met with pt to follow up regarding methadone restart. Pt received 75 mg methadone yesterday morning. Pt sitting in chair, awake, alert, easily engages in conversation. Reports day went well with 75 mg dose, however, night was awful. Pt reports she was up all night with pain and withdrawal symptoms including diaphoresis. Pt would like to resume evening dose methadone. Plan for pt to dc tomorrow. Pt denies other questions or concerns. Discussed with provider.
[2023-09-27] MEDS: methADONE HCl 20 MG/2 ML ORAL.CONC 25 MG PO (18:26)
[2023-09-27] MEDS: ondansetron HCL 4 MG/2 ML VIAL IVPUSH (18:27)
--- NOTE | 2023-09-27 18:34 | PC.NURSE ---
per pt request, [employer] is ok to give Methadone early. Methadone 25 mg was given at 18:26 to the pt
[2023-09-27] MEDS: traZODone HCL 100 MG TABLET PO (21:21)
[2023-09-27] MEDS: Divalproex Sodium 250 MG TABLET.DR 750 MG PO (21:21)
[2023-09-28] MEDS: Fluticasone/Vilanterol 100/25 BLST.W.DEV 1 PUFF INHALE (07:35)
[2023-09-28 07:36] VITALS: PULSE 72; RESP 16; O2SAT 92
[2023-09-28 07:57] VITALS: BP 107/60; PULSE 81; RESP 18; TEMP 36.3; O2SAT 95
[2023-09-28] MEDS: Divalproex Sodium 500 MG TABLET.DR PO (08:00)
[2023-09-28] MEDS: levETIRAcetam 500 MG TABLET PO (08:00)
[2023-09-28] MEDS: methADONE HCl 20 MG/2 ML ORAL.CONC 75 MG PO (08:00)
--- NOTE | 2023-09-28 09:04 | P.DS_ITS ---
DS: Providers Provider Date of Service: 09/28/23 Date of admission: 09/21/23 22:27 Primary care physician: Magen Lantigua MD Consults: 09/21/23 22:27 Consult to Neurology Routine Consulting Provider: [facility] Reason for consultation: breakthrough seizures 09/22/23 05:57 Consult to Cardiology Routine Consulting Provider: [facility] Reason for consultation: bradycardia Has provider been notified: Yes 09/22/23 12:46 Addiction Medicine Routine Consulting Provider: Addiction Covering Reason for consultation: on methadone DS: Diagnosis Discharge Diagnosis (1) Sinus bradycardia: Status: Acute DS: Summary Hospital Course Hospital Course: History and physical as per admitting provider. 48-year-old female, with a history of seizure disorder, asthma, opiate use disorder, and recent left ankle surgery presenting to the emergency department, via EMS, with complaints of not feeling well. Per EMS, family is concerned due to increased disorientation, confusion. She has a history of polysubstance abuse however family reports that they are cameras and all opiates or locked up, and she has not had any recent visitors, however family concern for possible ingestion of opiates. Pt denies any ongoing substance use, last use 3 years ago (cocaine). Reports she continues experiencing petit mal seizures at least twice weekly (follows with Dr. Mann) with reported post ictal states where she is lethargic and disoriented. She states she had a seizure 2 months ago resulting in a fall and sustained multiple fractures LLE s/p ORIF. Has been experiencing signficant difficulty sleeping due to the pain. Reports vaping marijuana, but no other substance use including cigarettes or alcohol. Per ED provider, patient was lethargic/somnolent with pinpoint pupils. Similar to prior presentations. On arrival, VSS. Was found to be hypxoci to 86% but was weaned from supplemental O2 now maintaining oximetry 97-98%. There has been a question of hypoventilation syndrome with history of intermittent hypoxia. She has a chronic leukopenia, stable at 3.7. Initial creat 2, improved to 1.67 with IVF. Lytes WNL except CO2 30. Lactic acid 0.9. Ammonia 37. Trop below detectable limits. DDimer 423 (chronically elevated, baseline). VBG ph 7.40, pCO2 47, bicarb 29. UA with 2+ leukocytes, negative nitrites, +sediment, +squamous cells, 3+ bacteria. UTox positive for opiates. Negative flu, covid 19, rsv. CXR negative. Head CT negative for any acute intracranial abnormality. CT abdomen/pelvis shows possible 3 mm nonobstructing calculus in the right distal ureter but no hydronephrosis. In the ED, given 1L IV NS and 1g IV ctx. 48 year old women treated for breakthrough seizure and developed bradycardia due to SA node dysfunction. Apparently she had a witnessed seizure at home, reports compliance with seizure medications. During hospitalization she did not have any seizures. She was found to be bradycardic in the 20s to 40s, it was initially thought to be secondary to methadone use as she was on high dosing after 3 days of holding the methadone it was found that the patient would require a pacemaker as her heart rate not returned to normal. She had a pacemaker placed on 09/25/2023 with low rate at 60. She had some episodes of hypotension treated with midodrine and her blood pressures are now stabilized. Her ABDIRAHMAN was treated with aggressive IV fluid hydration and did resolve she has chronic leukopenia and thrombocytopenia secondary to Depakote use. She had a ORIF from a fracture of the left medial malleolus on 08/04/2023 and has an appointment on 09/30/2023 for possible cast removal. Her methadone was adjusted and she is currently on 75 mg daily and 25 mg at bedtime. He is to continue her home doses of oxycodone for pain status post ankle surgery. Patient is stable at this time and plan is to discharge home with family Time Attestation Discharge Coordination Time (in mins): 45 Quality: Safe Use of Opioids Does Pt have an Active Cancer Diagnosis on the Problem List?: No Quality: Stroke Does the patient have a stroke diagnosis?: No Physical Exam Vital Signs: Vital Signs: Last Vital Signs Temp 97.4 F 09/28/23 07:57 Pulse 81 09/28/23 07:57 Resp 18 09/28/23 07:57 BP 107/60 09/28/23 07:57 Pulse Ox 95 09/28/23 07:57 O2 Del Method Nasal Cannula 09/28/23 07:57 O2 Flow Rate 2 09/28/23 07:57 Oxygen Flow Rate 2 09/27/23 16:00 BMI result Body Mass Index 24.5 Appearing in no acute distress lung sounds are clear to auscultation heart regular rate rhythm, clear S1, S2 positive bowel sounds, abdomen is soft, nontender neuro patient is alert x3, no focal deficits cast to LLE DS: Data Data Completed and Pending Completed studies during hospitalization [Text1]: Procedures Introduction of Anesthetic Agent into Peripheral Nerves and Plexi, Percutaneous Approach (07/31/23) Reposition Left Fibula with Internal Fixation Device, Open Approach (07/31/23) Reposition Left Tibia with Internal Fixation Device, Open Approach (07/31/23) Discharge Plan Discharge Anticipated Discharge Date/Time: 09/28/23 08:53 Patient Disposition: Home Health Service Discharge Diagnosis: Sinus bradycardia, pacemaker placement SA node dysfunction Hypotension Acute kidney injury Referrals: Magen Lantigua MD [Primary Care Provider] - 1 Week Freya Berg MARKETING [employer]OTATION ASSOCIATE-C [Nurse Practitioner] - None Discharge Medications: New methadone [Methadose] 10 mg/mL Concentrate 75 mg PO DAILY Qty: 30 0RF Rx Instructions: Partial Fill upon patient request. methadone [Methadose] 10 mg/mL Concentrate 25 mg PO BEDTIME Qty: 30 0RF Rx Instructions: Partial Fill upon patient request. Continued (DME) nebulizer and compressor [PureAir Mini Nebulizer] Device See Rx Instructions .Route Qty: 1 0RF Rx Instructions: As directed divalproex 250 mg tablet,delayed release (DR/EC) 750 mg PO BEDTIME trazodone 50 mg tablet 100 mg PO BEDTIME divalproex 500 mg tablet,delayed release (DR/EC) 500 mg PO DAILY indomethacin 50 mg capsule 50 mg PO BID Dulera 100-5 mcg/actuation HFA aerosol inhaler 2 puff inhalation BID hydroxyzine HCl 25 mg tablet 25 mg PO BID PRN (Reason: Anxiety) levetiracetam 500 mg Tablet 500 mg PO BID Qty: 1 0RF ondansetron 4 mg Tablet,Disintegrating 4 mg translingual Q6H PRN (Reason: Nausea And Vomiting) Qty: 1 0RF oxycodone 5 mg tablet 5 mg PO Q6H PRN (Reason: pain) Rx Instructions: Partial Fill upon patient request. Excedrin Extra Strength 250-250-65 mg Tablet 2 tab PO Q6H PRN (Reason: Migraine Headache) (DME) Knee scooter See Rx Instructions .ROUTE .MEDSUPPLY Qty: 1 0RF Rx Instructions: As directed Discontinued methadone [Methadone Intensol] 10 mg/mL Concentrate 120 mg PO DAILY@0900 methadone [Methadose] 10 mg/mL Concentrate 30 mg PO BEDTIME Qty: 1 0RF Rx Instructions: Partial Fill upon patient request. Discharge Orders: Discharge Order (Routine); Ordered 09/28/23 Ordered By: Mary Mccrary Diet: Advance to usual diet Activity on Discharge: As tolerated Stand Alone Forms: Patient Portal Discharge page, Work/School Release Care Plan Goals: Follow up with orthopedic surgery for scheduled appointment take all medications as prescribed Last dose of Methadone 75mg on 09/28/23 at 0900, she will be due for 25 mg at bedtime on 09/28/23 Health Concerns: Sinus bradycardia-pacemaker placement SA node dysfunction Hypotension Acute kidney injury Plan of Treatment: ACTIVITY: * ARM MOVEMENT RESTRICTIONS: No lifting your left arm over your head or behind your back, no pushing/pulling/lifting anything >10lb with your left arm for 6- 8 weeks. This ensures the pacemaker wires stay in place and do not get pulled out accidentally. Make sure you are doing gentle range of motion exercises with the left arm (such as pendulum exercise) to make sure your elbow and shoulder do not get frozen up. * ARM SLING: You may take the sling off and leave it off. HOWEVER, if you are noticing a difficulty limiting your left arm movement (as outlined above) then wear your sling during the day to make sure you are adhering to the restrictions above. * Ask your doctor when you can expect to return to work. * You can still exercise. It is good for your body and your heart. Talk with your doctor about an exercise plan. INCISION CARE: * You may shower. * Do not submerge yourself in water (baths, pools, etc.) for 2 weeks. * Monitor the incision for increased redness, swelling, bruising, pain, open area, or drainage. OTHER PRECAUTIONS: * Before you receive any treatment, tell all healthcare providers (including your dentist) that you have a pacemaker. * You will be given an ID card that contains information about your pacemaker. Always carry this card with you. You can show this card if your pacemaker sets off a metal detector. You should also show it to avoid screening with a hand-held security wand. * Keep your cell phone away from your pacemaker. Do not carry the phone in your shirt pocket, even it if is turned off. * Avoid strong magnets. Examples are those used in MRI's or in hand-held security wands. * Avoid strong electrical lanier. Examples are those made by radio transmitting towers, ham radios, and heavy-duty electrical equipment. * Avoid leaning over the open santos of a running car. A running engine creates an electrical field. Most household and yard appliances will not cause any problems. If you use any large power tools, such as an industrial websphere portal architect, talk with your doctor. WHEN TO CALL YOUR DOCTOR: Call your doctor immediately if you have any of the following: * Dizziness * Chest pain * Lack of energy * Fainting spells * Twitching chest muscles * Rapid pule or pounding heartbeat * Shortness of breath * Pain around your pacemaker * Fever above 100.4 F (38 C) or other signs of infection (redness, swelling, drainage, or warmth at the incision site). * Hiccups that will not stop FOLLOWUP APPOINTMENTS: * Call your ux visual designer to make an appointment for the next couple weeks. Make regular follow-up appointments with your doctor. He or she will check the pacemaker to make sure it is working properly Assessment: See discharge summary Patient Instructions: Pacemaker (DC)
--- NOTE | 2023-09-28 09:44 | MHC.CM.PN ---
Patient has been medically cleared for dc to home today, with services. Patient is active with Melinda [facility]INA, who has been notified of today's dc. CM met with Patient at bedside and addressed IMM with her, providing Patient with the original and a copy has been placed on the chart. CM reassured Patient that RN will be providing her with the Last Dose Letter for Patient's Methadone.
--- NOTE | 2023-09-28 10:21 | MHC.CM.PN ---
[facility] auth # for [facility] transport is [id number].
[2023-09-28 10:24] VITALS: PULSE 75; PULSE 86; O2SAT 90; O2SAT 91
[2023-09-28 11:01] VITALS: BP 105/60; PULSE 73; RESP 18; TEMP 36.2; O2SAT 92
[2023-09-28] MEDS: oxyCODONE HCl Immed Release 5 MG TABLET 10 MG PO (11:40)
== END 2023-09-28 12:31 | disposition home health service (06) | DRG 41 ==
LOC: HO.ED 17:46 → HO.EDOVER 22:33 → HO.IMC 09-22 15:31
PROVIDERS: Internal Medicine Cardiovascular Disease; Physician Assistant Medical; Student in an Organized Health Care Education/Training Program; Admitting Provider Physician Assistant; Emergency Provider Emergency Medicine; PCP Internal Medicine; Visit Provider Nurse Practitioner Acute Care
PROC: 0JH606Z Insertion of Pacemaker, Dual Chamber into Chest Subcutaneous Tissue and Fascia, Open Approach (ICD-10-PCS; principal; 2023-09-25 14:00)
DX: G40.209 Localization-related (focal) (partial) symptomatic epilepsy and epileptic syndromes with complex partial seizures, not intractable, without status epilepticus (principal); F11.20 Opioid dependence, uncomplicated; N17.9 Acute kidney failure, unspecified; I49.5 Sick sinus syndrome; I95.9 Hypotension, unspecified; F31.9 Bipolar disorder, unspecified; D69.59 Other secondary thrombocytopenia; T42.6X5A Adverse effect of other antiepileptic and sedative-hypnotic drugs, initial encounter; F17.210 Nicotine dependence, cigarettes, uncomplicated; Z71.6 Tobacco abuse counseling; Z20.822 Contact with and (suspected) exposure to COVID-19; Z79.899 Other long term (current) drug therapy
CPT/HCPCS: 0241U; 36415; 70450; 71045; 71046; 74176; 80048; 80076; 80164; 80307; 81001; 82140; 82570; 82803; 83605; 83690; 83735; 84300; 84443; 84484; 84702; 85025; 85027; 85379; 85610; 85730; 87040; 87086; 92950; 93005; 93306; 94640; 95816; 97162; 99285; C1785; C1892; C1898; J0690; J0696; J1170; J1596; J1650; J1885; J2250; J2270; J2405; J2704; J2765; J3370; Q9957; Q9967

== ENCOUNTER → 2023-09-21 11:44 | Outpatient (BNV) | payer OTHER, SELFPAY | PROVIDERS: Emergency Provider Emergency Medicine; PCP Internal Medicine; Visit Provider Internal Medicine Cardiovascular Disease | DX: I49.9 Cardiac arrhythmia, unspecified (principal) | CPT/HCPCS: 93010 ==

== ENCOUNTER 2023-09-21 22:27 | Outpatient (BNV) | payer OTHER, SELFPAY | END 2023-09-24 00:22 | PROVIDERS: Admitting Provider Physician Assistant; Emergency Provider Emergency Medicine; PCP Internal Medicine; Visit Provider Internal Medicine Cardiovascular Disease | DX: R00.1 Bradycardia, unspecified (principal) | CPT/HCPCS: 93010 ==

== ENCOUNTER 2023-09-21 22:27 | Outpatient (BNV) | payer OTHER, SELFPAY | END 2023-09-22 05:33 | PROVIDERS: Admitting Provider Physician Assistant; Emergency Provider Emergency Medicine; PCP Internal Medicine; Visit Provider Internal Medicine Cardiovascular Disease | DX: R00.1 Bradycardia, unspecified (principal); R94.31 Abnormal electrocardiogram [ECG] [EKG] | CPT/HCPCS: 93010; 93306 ==

== ENCOUNTER → 2023-09-21 22:27 | Outpatient (BNV) | payer OTHER, SELFPAY | PROVIDERS: Admitting Provider Physician Assistant; Emergency Provider Emergency Medicine; PCP Internal Medicine; Visit Provider Nurse Practitioner Psychiatric/Mental Health | DX: F11.90 Opioid use, unspecified, uncomplicated (principal); R00.1 Bradycardia, unspecified | CPT/HCPCS: 99232; 99499 ==

== ENCOUNTER → 2023-09-21 22:27 | Outpatient (BNV) | payer OTHER, SELFPAY | PROVIDERS: Admitting Provider Physician Assistant; Emergency Provider Emergency Medicine; PCP Internal Medicine; Visit Provider Internal Medicine Cardiovascular Disease | DX: R00.1 Bradycardia, unspecified (principal); R55 Syncope and collapse | CPT/HCPCS: 99222; 99233 ==

== ENCOUNTER → 2023-09-21 22:27 | Outpatient (BNV) | payer OTHER, SELFPAY | PROVIDERS: Admitting Provider Physician Assistant; Emergency Provider Emergency Medicine; PCP Internal Medicine; Visit Provider Physician Assistant | DX: R00.1 Bradycardia, unspecified (principal) | CPT/HCPCS: 99223; 99232; 99233; 99239 ==

== ENCOUNTER → 2023-09-21 22:27 | Outpatient (BNV) | payer OTHER, SELFPAY | PROVIDERS: Admitting Provider Physician Assistant; Emergency Provider Emergency Medicine; PCP Internal Medicine; Visit Provider Psychiatry & Neurology Neurology | DX: G93.40 Encephalopathy, unspecified (principal); R55 Syncope and collapse; R00.1 Bradycardia, unspecified | CPT/HCPCS: 99222 ==

== ENCOUNTER 2023-10-01 06:26 | Outpatient (REF) | payer OTHER, SELFPAY ==
--- NOTE | ~2023-10-01 | XR_ITS ---
EXAMINATION: XR ANKLE, LEFT CLINICAL INFORMATION: Left ankle pain COMPARISON: 09/03/2023 TECHNIQUE: AP, lateral, and mortise views of the left ankle. FINDINGS: Patient is status post hardware placement along the lateral aspect of the ankle and are healed fracture deformity of the lateral malleolus and there are 2 screws in the medial malleolus with healed fracture deformity. Ankle mortise is maintained. Soft tissues unremarkable. XR/XR ankle LT min 3V IMPRESSION: Healed fracture of left ankle with well positioned hardware
== END 2023-10-01 06:27 | disposition home or self-care (01) ==
LOC: HO.HOSX 06:26
PROVIDERS: Visit Provider Physician Assistant
DX: M25.572 Pain in left ankle and joints of left foot (principal)
CPT/HCPCS: 73610; 99212

== ENCOUNTER 2023-10-01 12:04 | Outpatient (AMB) | payer OTHER, SELFPAY ==
--- NOTE | 2023-10-01 12:36 | A.OFFVIS_ITS ---
Intake Intake Visit Reasons: PO- Lt ankle ORIF 08/05/23-w/Xray/cast off Intake Note: Chi a 48 year old female presents today for a post operative left ankle ORIF on 08/05/23 [place]. Cast off and xrays updated. Patient reports she continues to have pain, states current pain level is a 7 out of 10. She reports a placemaker placement on 09/26/23 at [facility]. Allergies amoxicillin [AMOXICILLIN] Allergy (Intermediate, Verified 10/01/23 12:37) RASH Penicillins [PENICILLINS] Allergy (Intermediate, Verified 10/01/23 12:37) RASH HPI PO- Lt ankle ORIF 08/05/23-w/Xray/cast off HPI Details 48-year-old female who returns to the [facility] today for post-op left ankle ORIF, 08/05/[address] Vazquez. She continues to have pain in her ankle and rates the pain as 7 on the scale of 0-10. She has no other concerns today. She had a pacemaker placement on 09/26/23 at [facility]. [facility] Medical History Clavicle fracture Narcotic abuse Seizures Asthma COPD (chronic obstructive pulmonary disease) Surgical History History of ankle surgery (08/05/23) H/O right knee surgery H/O left knee surgery Social History Household Members: Family and Other Household Members Other:: father, mother, daughter Housing: House Do you presently have visiting nurse or other home services: Yes Alcohol intake: unknown Patient Tobacco Use Status: Current everyday Tobacco user Tobacco use type: Cigarette e-Cigarette/Vaping Use: Currently Using Second Hand Smoke Exposure: No Substance Use Type: Painkillers and Prescription Drugs Advance Directives Date on File: 07/31/23 service: No Review of Systems Const All systems reviewed & are unremarkable except as noted in HPI and below Physical Exam Extrem Other: Left ankle: Normal to inspection. Steri strips are clean, dry and intact along incision. No sign of erythema or drainage. She has a small area over the anterior portion of ankle and foot that has superficial skin breakdown from the scab, which is clean and dry. NVI. Results Reviewed Results Reviewed: X-rays of the right ankle obtained in the office today show intact orthopedic hardware ankle mortise intact, interval healing of fracture Assessment & Plan Assessment & Plan (1) Fracture of medial malleolus, left, closed: Comment: Left ankle lateral and medial malleolar ORIF, 08/04/2023 NE Code(s): S82.52XA - Displaced fracture of medial malleolus of left tibia, initial encounter for closed fracture Qualifiers: Encounter type: subsequent encounter Fracture alignment: displaced Fracture healing: with routine healing Qualified Code(s): S82.52XD - Displaced fracture of medial malleolus of left tibia, subsequent encounter for closed fracture with routine healing Plan She was transitioned to a tall boot weight bearing as tolerated. She will wear the boot at all times when ambulating. She can remove the boot for exercises and hygiene. She will also begin a course of physical therapy to work on ROM, strengthening and proprioceptive training. If at any times, she notices any worsening skin breakdown over the ankle or foot, she will contact the office, otherwise she will follow-up in 6 weeks, sooner if needed. Orders: Orders PT Evaluation and Treatment Today S82.52XA - Displaced fracture of medial malleolus of left tibia, initial encounter for closed fracture XR ankle LT min 3V Today M25.572 - Pain in left ankle and joints of left foot Patient Instructions: Scribed for Burt Cruz PA-C, by Elio Bullock director medical science, on 10/01/2023 at 12:45 PM EST. I, Burt Cruz PA-C, have personally reviewed and agree with the information entered by the scribe. Coding Level of Care Code Global (37597) Diagnoses Closed displaced fracture of medial malleolus of left tibia with routine healing, subsequent encounter S82.52XD Encounter type: subsequent encounter Fracture alignment: displaced Fracture healing: with routine healing
== END 2023-10-01 13:04 | disposition home or self-care (01) ==
PROVIDERS: PCP Internal Medicine; Visit Provider Physician Assistant
DX: S82.52XD Displaced fracture of medial malleolus of left tibia, subsequent encounter for closed fracture with routine healing (principal)
CPT/HCPCS: 99024

== ENCOUNTER → 2023-10-20 23:59 | Outpatient (BNV) | payer OTHER, SELFPAY ==
--- NOTE | 2023-10-21 15:40 | A.OFFVIS_ITS ---
Intake Intake Visit Reasons: Remote device check- [facility] Allergies amoxicillin [AMOXICILLIN] Allergy (Intermediate, Verified 10/01/23 12:37) RASH Penicillins [PENICILLINS] Allergy (Intermediate, Verified 10/01/23 12:37) RASH [facility] Medical History (Updated 10/21/23 @ 15:40 by Lalit Woody MD) Cardiac pacemaker in situ Opioid use disorder Seizure disorder Clavicle fracture Narcotic abuse Seizures Asthma COPD (chronic obstructive pulmonary disease) Surgical History History of ankle surgery (08/05/23) H/O right knee surgery H/O left knee surgery Social History Household Members: Family and Other Household Members Other:: father, mother, daughter Housing: House Do you presently have visiting nurse or other home services: Yes Alcohol intake: unknown Patient Tobacco Use Status: Current everyday Tobacco user Tobacco use type: Cigarette e-Cigarette/Vaping Use: Currently Using Second Hand Smoke Exposure: No Substance Use Type: Painkillers and Prescription Drugs Advance Directives Date on File: 07/31/23 service: No Office Procedures Cardiac Device Check Cardiac Device Check Details: Remote pacemaker report generated 10/20/2023. Pacemaker function is adequate. Atrial pacing 31% of the time [id number] Cardiac Device Interrogation, pacemaker Procedure code (CPT) selection complete Assessment & Plan Assessment & Plan (1) Cardiac pacemaker in situ: Code(s): Z95.0 - Presence of cardiac pacemaker Plan: See above Coding Level of Care Code Procedure Only Diagnoses Cardiac pacemaker in situ Z95.0 CPT Codes Cardiac Device Check - Cardiac Device 12: [id number] Cardiac Device Interrogation, pacemaker ([id number])
== END ==
PROVIDERS: PCP Internal Medicine; Visit Provider Internal Medicine Cardiovascular Disease
DX: Z45.018 Encounter for adjustment and management of other part of cardiac pacemaker (principal)
CPT/HCPCS: 93294

== ENCOUNTER 2023-10-23 08:31 | Outpatient (REF) | payer OTHER, SELFPAY ==
--- NOTE | ~2023-10-23 | XR_ITS ---
EXAMINATION: XR KNEE, RIGHT CLINICAL INFORMATION: Unilateral primary osteoarthritis right knee. COMPARISON: 05/07/2023. TECHNIQUE: AP standing view of bilateral knees as well as sunrise and lateral views of the right knee. FINDINGS: The bones are diffusely demineralized. Right knee: Trace joint effusion. Moderate narrowing of the medial compartment with small medial marginal osteophytes. Small posterior patellar osteophytes. AP standing view of the left knee: Demonstrates narrowing of the medial and lateral compartments with marginal osteophytes. XR/XR knee RT 3V IMPRESSION: 1. Moderate degenerative changes right knee. 2. Moderate degenerative changes left knee.
== END 2023-10-23 08:32 | disposition home or self-care (01) ==
LOC: HO.HOSX 08:31
PROVIDERS: Visit Provider Physician Assistant
DX: M17.11 Unilateral primary osteoarthritis, right knee (principal); Z95.0 Presence of cardiac pacemaker
CPT/HCPCS: 20610; 73562; 99212; J1010; J1040

== ENCOUNTER 2023-10-23 10:46 | Outpatient (AMB) | payer OTHER, SELFPAY ==
--- NOTE | 2023-10-23 11:04 | A.OFFVIS_ITS ---
Intake Intake Visit Reasons: OV - New Problem RT knee pain Intake Note: Chi a 48 year old female presents today for an evaluation of right knee pain. Patient reports pain and a lump that is located at the anterior aspect of knee from her fall back in July that required ankle surgery. States constant pain and unable to bear full weight on her right leg. Limited ROM. Hx of right knee surgery last year at [facility], states she will not go back to [facility]. Allergies amoxicillin [AMOXICILLIN] Allergy (Intermediate, Verified 10/23/23 11:20) RASH Penicillins [PENICILLINS] Allergy (Intermediate, Verified 10/23/23 11:20) RASH HPI OV - New Problem RT knee pain HPI Details 48-year-old female who presents to the [facility] today for evaluation of right knee pain. She reports she had pain and a lump located at the anterior aspect of her knee from a fall back in July and had a right knee surgery at [facility]. She reports she is unwilling to go back at [facility] for reevaluation. She currently states she has constant pain and limited ROM in her knee which makes her unable to fully weight bear on her right leg. She does not have a history of diabetes. [facility] Medical History (Updated 10/23/23 @ 21:31 by Burt Cruz PA-C) Cardiac pacemaker in situ Opioid use disorder Seizure disorder Clavicle fracture Narcotic abuse Seizures Asthma COPD (chronic obstructive pulmonary disease) Surgical History History of ankle surgery (08/05/23) H/O right knee surgery H/O left knee surgery Social History Household Members: Family and Other Household Members Other:: father, mother, daughter Housing: House Do you presently have visiting nurse or other home services: Yes Alcohol intake: unknown Patient Tobacco Use Status: Current everyday Tobacco user Tobacco use type: Cigarette e-Cigarette/Vaping Use: Currently Using Second Hand Smoke Exposure: No Substance Use Type: Painkillers and Prescription Drugs Advance Directives Date on File: 07/31/23 service: No Review of Systems Const All systems reviewed & are unremarkable except as noted in HPI and below Physical Exam Extrem Other: Right knee: Skin intact, no erythema or joint effusion. Tenderness along the medial and lateral joint line. Full ROM with crepitus. Negative Devin?s. No ligamentous laxity. NVI. Office Procedures Joint Injection/Drain Joint Injection/Drain Primary Site: right knee Prep: site was prepped using aseptic technique, ethochloride spray was applied and injection warnings given Injected: 80 mg of, DepoMedrol, with 8 mL of, 1% plain lidocaine and in the joint Approach Used: anterolateral Procedure: The patient tolerated the procedure well and there was some relief with the local anesthesia Coding 25546 - Glenohumeral/Tronchanteric Bursa/Intraarticular Procedure code (CPT) selection complete Results Reviewed Results Reviewed: Xrays were obtained in the office today and personally reviewed by me show medial and pf compartment oa Assessment & Plan Assessment & Plan (1) Osteoarthritis of right knee: Code(s): M17.11 - Unilateral primary osteoarthritis, right knee Plan We discussed options today which include steroid injection. They did consent to move forward with the right knee injection, which was tolerated well. I recommended rest, ice and elevation and OTC anti-inflammatories PRN for discomfort. If symptoms persist or worsens over the next 6-8 weeks, patient will contact the office, otherwise follow-up as needed. Orders: Orders XR knee RT 3V Today M17.11 - Unilateral primary osteoarthritis, right knee Patient Instructions: Scribed for Burt Cruz PA-C, by Elio Bullock phlebotomist medical lab assistant, on 10/23/2023 at 11:00 AM EST. Burt Cooper PA-C, have personally reviewed and agree with the information entered by the scribe. Coding Level of Care Code Est Pt Level 3 (43755) Diagnoses Osteoarthritis of right knee M17.11 CPT Codes Coding - Joint 7: 06016 - Glenohumeral/Tronchanteric Bursa/Intraarticular ([id number])
== END 2023-10-23 11:41 | disposition home or self-care (01) ==
PROVIDERS: PCP Internal Medicine; Visit Provider Physician Assistant
DX: M17.11 Unilateral primary osteoarthritis, right knee (principal)
CPT/HCPCS: 20610; 99213

== ENCOUNTER 2023-10-23 13:56 | Outpatient (AMB) | payer OTHER, SELFPAY ==
[2023-10-23 14:02] VITALS: BP 110/68; PULSE 68; BMI 25.8
--- NOTE | 2023-10-23 14:02 | A.OFFVIS_ITS ---
Intake Vital Signs 10/23/23 14:02 Height 6 ft Weight 190 lb BMI 25.8 BMI Reason not done Patient refused/unable BP 110/68 Blood Pressure Location Lt brachial Position Sitting Pulse 68 Intake Visit Reasons: r/s 10/15/23 [facility] [place]/wound check Intake Note: pt feels goos folow up ov wound check Allergies amoxicillin [AMOXICILLIN] Allergy (Intermediate, Verified 10/23/23 11:20) RASH Penicillins [PENICILLINS] Allergy (Intermediate, Verified 10/23/23 11:20) RASH HPI HPI Comments History of Present Illness Details 48-year-old female presents today for wo und check after permanent pacemaker placement. She had a dual chamber permanent pacemaker placed by Dr Woody on 09/23/13 for severe symptomatic bradycardia. She reports she has been doing well since discharge. No odor, fever. chills, or tenderness. Dressing was removed by [facility]. [facility] Medical History (Updated 10/23/23 @ 21:31 by Burt Cruz PA-C) Cardiac pacemaker in situ Opioid use disorder Seizure disorder Clavicle fracture Narcotic abuse Seizures Asthma COPD (chronic obstructive pulmonary disease) Surgical History History of ankle surgery (08/05/23) H/O right knee surgery H/O left knee surgery Social History Household Members: Family and Other Household Members Other:: father, mother, daughter Housing: House Do you presently have visiting nurse or other home services: Yes Alcohol intake: unknown Patient Tobacco Use Status: Current everyday Tobacco user Tobacco use type: Cigarette e-Cigarette/Vaping Use: Currently Using Second Hand Smoke Exposure: No Substance Use Type: Painkillers and Prescription Drugs Advance Directives Date on File: 07/31/23 service: No Review of Systems Const Denies weakness ENT Denies dizziness Card Denies chest pain, Denies chest pain with activity, Denies syncope, Denies rapid heart rate, Denies pedal edema, Denies edema, Denies leg edema, Denies lightheadedness, Denies palpitations, Denies dyspnea, Denies dyspnea on exertion and Denies orthopnea Resp Denies cough, Denies dyspnea and Denies dyspnea on exertion GI Denies hematochezia and Denies change in stool character Musc Denies abnormal gait, Denies muscle cramps, Denies muscle weakness, Denies numbness, Denies radiating pain into limb and Denies tingling Neuro Denies abnormal gait, Denies dizziness, Denies syncope, Denies numbness, Denies tingling and Denies weakness Endo Denies palpitations Physical Exam Vital Signs: Last Vital Signs Pulse 68 10/23/23 14:02 BP 110/68 10/23/23 14:02 BMI result Body Mass Index 25.8 Const General: healthy appearing and no acute distress Orientation/consciousness: patient oriented x3 HEENT Head: Yes normal to inspection Eyes General: appearance normal, both eyes and all related structures Neck Neck: Yes normal visual inspection Chest Chest palpation & inspection: normal inspection of the chest Resp Effort & Inspection: normal respiratory effort Auscultation: clear to auscultation bilaterally Cardio Jugular venous distension: no JVD Palpation: normal PMI Rate: regular rate Rhythm: regular rhythm Heart sounds: S1 normal heart sound present, S2 normal heart sound present, no click, no gallops, no murmurs and no rubs GI Inspection: Yes normal to inspection Palpation (GI): Soft to palpation Skin General skin exam: no rashes or lesions noted Neuro General: patient oriented x3 Extrem General: Yes normal to inspection Psych Appearance: grossly normal Assessment & Plan Assessment & Plan (1) Cardiac pacemaker in situ: Comment: [facility] Dual Chamber placed on 09/25/23 Code(s): Z95.0 - Presence of cardiac pacemaker Plan Connected on remote. Will follow remotely every three months. Wound is healing well approximated and healing appropriately. No odor, drainage, erythema, or te nderness noted. Bedside monitor discussed. Coding Level of Care Code Est Pt Level 3 (58852) Diagnoses Cardiac pacemaker in situ Z95.0
== END 2023-10-23 14:36 | disposition home or self-care (01) ==
PROVIDERS: PCP Internal Medicine; Visit Provider Nurse Practitioner
DX: R00.1 Bradycardia, unspecified (principal); Z95.0 Presence of cardiac pacemaker; Z48.812 Encounter for surgical aftercare following surgery on the circulatory system
CPT/HCPCS: 99212

== ENCOUNTER 2023-11-09 12:54 | Emergency (ER) | payer OTHER, SELFPAY ==
--- NOTE | ~2023-11-09 | XR_ITS ---
EXAMINATION: XR CHEST CLINICAL INFORMATION: Chest pain. COMPARISON: Chest radiograph 09/28/2023. TECHNIQUE: Frontal view of the chest was obtained. FINDINGS: Left-sided pacer with leads projecting over the right atrium and right ventricle. Unchanged cardiomediastinal silhouette. No focal airspace opacities, pleural effusion or pneumothorax. No acute osseous findings. XR/XR chest 1V IMPRESSION: No acute cardiopulmonary findings.
[2023-11-09 13:03] VITALS: BP 110/78; PULSE 87; O2SAT 95
--- NOTE | 2023-11-09 13:04 | ECG_ITS ---
Test Reason : CHEST PAIN Blood Pressure : / mmHG Vent. Rate : 069 BPM Atrial Rate : 069 BPM P-R Int : 170 ms QRS Dur : 084 ms QT Int : 406 ms P-R-T Axes : 049 011 030 degrees QTc Int : 435 ms Normal sinus rhythm Normal ECG When compared with ECG of 24-SEP-2023 09:25, Vent. rate has increased BY 38 BPM Nonspecific T wave abnormality no longer evident in Lateral leads Referred By: Generic ED Physician Electronically Signed By:CLEVELAND LEDEZMA
[2023-11-09 13:33] VITALS: BP 110/74; PULSE 70; RESP 16; TEMP 36.5; O2SAT 95; BMI 23.7
[2023-11-09 13:40] VITALS: PULSE 70; RESP 16; TEMP 36.5; O2SAT 95
[2023-11-09 15:59] VITALS: BP 116/59; PULSE 78; RESP 16; TEMP 36.9; O2SAT 97
[2023-11-09] MEDS: Cyclobenzaprine HCl 10 MG TABLET PO (16:57)
[2023-11-09] MEDS: Acetaminophen 325 MG TABLET 975 MG PO (16:57)
[2023-11-09] MEDS: Lidocaine 4 % Patch ADH..PATCH 1 PATCH TRANSDERMA (16:58)
[2023-11-09 17:10] LABS: Amphetamine Screen Urine Not Detected (Not Detect); Barbiturates, Urine Not Detected (Not Detect); Benzodiazepines Screen Urine Not Detected (Not Detect); Buprenorphine Scr Not Detected (Not Detect); Cannabinoid Screen Urine Not Detected (Not Detect); Cocaine Screen Urine Not Detected (Not Detect); Fentanyl, urine Not Detected (Not Detect); Methadone Screen, Urine Positive (Not Detect); Opiate Screen Urine POSITIVE (Not Detect); Oxycodone Screen Urine Positive (Not Detect); Phencyclidine Screen Urine Not Detected (Not Detect)
[2023-11-09 17:11] LABS: MANUAL DIFF FLAG NO
[2023-11-09 17:16] LABS: Appearance Urine Clear; Color Urine Dark Yellow; Glucose Urine UA Negative (Negative); Leukocyte Esterase Urine Trace (Negative); Nitrite Urine Negative (Negative); PH 6.5 (5.0-9.0); Specific Gravity - Urine 1.025 (1.005-1.025); UMIC TRIGGER UACC YES; Urine Blood Negative (Negative); Urine Ketones 40 mg/dL (Negative); Urine Protein Negative (Neg-Trace)
[2023-11-09 17:20] LABS: Basophils Percent Auto 0.6 % (0-2); Eosinophils Absolute Auto 0.1 X10*3/uL (0.0-0.4); Eosinophils Percent Auto 2.5 % (0-4); Hematocrit 34.9 % (37.0-47.0); Hemoglobin 11.4 g/dl (12.0-16.0); Imm Gran Abs Auto 0.01 X10*3/uL (0.00-0.03); Imm Gran Pct Auto 0.3 % (0.0-0.4); Lymphocytes Absolute Auto 1.7 X10*3/uL (1.2-4.9); Lymphocytes Percent Auto 47.6 % (20-40); Mean Corpuscular HGB Conc 32.7 g/dl (31.0-35.0); Mean Corpuscular Hemoglobin 28.1 pg (27.0-33.0); Mean Corpuscular Volume 86.2 fL (80.0-98.0); Mean Platelet Volume 10.5 fL (9.4-12.3); Monocytes Absolute Auto 0.3 X10*3/uL (0.1-1.2); Monocytes Percent Auto 8.4 % (2-11); Neutrophils Absolute Auto 1.5 x10*3/uL (2.0-8.3); Neutrophils Percent Auto 40.6 % (45-73); Red Blood Count 4.05 X10*6/uL (4.20-5.50); Red Cell Distribution Width 15.2 % (11.0-16.0); White Blood Count 3.6 X10*3/uL (4.8-10.8)
--- NOTE | 2023-11-09 17:25 | ED.CHESTPAIN ---
HPI - Chest Pain General Chief Complaint: Chest Pain Stated Complaint: CP PER EMS Time Seen by Provider: 11/09/23 16:07 Source: patient Mode of arrival: EMS History of Present Illness HPI narrative: 48-year-old female who presents with 1 week of lower posterior left back discomfort, states that she gets in-home physical therapy and has only been ambulating with a walker, had a pacemaker placed last month is also had recent repair of right ankle with good healing Related Data Home Medications ?Medication ?Instructions ?Recorded ?Confirmed divalproex 250 mg tablet,delayed 750 mg PO BEDTIME 07/31/23 09/21/23 release divalproex 500 mg tablet,delayed 500 mg PO DAILY 07/31/23 09/21/23 release hydroxyzine HCl 25 mg tablet 25 mg PO BID PRN Anxiety 07/31/23 09/21/23 indomethacin 50 mg capsule 50 mg PO BID 07/31/23 09/21/23 mometasone-formoterol HFA 100 2 puff inhalation BID 07/31/23 09/21/23 mcg-5 mcg/actuation aerosol inhaler (Dulera) trazodone 50 mg tablet 100 mg PO BEDTIME 07/31/23 09/21/23 [id number]-fzuwgjyznkjaf-xjzcuuny 250 2 tab PO Q6H PRN Migraine Headache 09/21/23 09/21/23 mg-250 mg-65 mg tablet (Excedrin Extra Strength) oxycodone 5 mg tablet 5 mg PO Q6H PRN pain 09/21/23 09/21/23 Previous Rx's ?Medication ?Instructions ?Recorded nebulizer and compressor (PureAir #1 ea 04/09/21 Mini Nebulizer) levetiracetam 500 mg tablet 500 mg PO BID #1 tab 08/12/23 ondansetron 4 mg disintegrating 4 mg translingual Q6H PRN Nausea 08/12/23 tablet And Vomiting #1 tab Knee scooter #1 ea 09/03/23 methadone 10 mg/mL oral 25 mg (2.5 mL) PO BEDTIME #30 mL 09/28/23 concentrate (Methadose) cyclobenzaprine 10 mg tablet 10 mg PO TID PRN muscle spasm #10 11/09/23 tabs Allergies Allergy/AdvReac Type Severity Reaction Status Date / Time amoxicillin [AMOXICILLIN] Allergy Intermediate RASH Verified 11/09/23 13:36 Penicillins [PENICILLINS] Allergy Intermediate RASH Verified 11/09/23 13:36 Review of Systems Review of Systems: Pertinent positives and negatives as stated in [facility] Past Medical History Source: nursing notes reviewed Medical History Cardiac pacemaker in situ Opioid use disorder Seizure disorder Clavicle fracture Narcotic abuse Seizures Asthma COPD (chronic obstructive pulmonary disease) Surgical History History of ankle surgery (08/05/23) H/O right knee surgery H/O left knee surgery Social History Social History Household Members: Family and Other Household Members Other:: father, mother, daughter Housing: House Do you presently have visiting nurse or other home services: Yes Alcohol intake: unknown Patient Tobacco Use Status: Current everyday Tobacco user Tobacco use type: Cigarette Smoked in Last 30 Days: No e-Cigarette/Vaping Use: Currently Using Second Hand Smoke Exposure: No Use of substances other than those prescribed or required for medical reasons: No Substance Use Type: Painkillers and Prescription Drugs Advance Directives: Yes Advance Directives on File: Yes Advance Directives Date on File: 07/31/23 Do you have a plan to hurt others: No Plan service: No Physical Exam Vital Signs: Vital Signs: Last Vital Signs Temp 98.5 F 11/09/23 15:59 Pulse 78 11/09/23 15:59 Resp 16 11/09/23 15:59 BP 116/59 L 11/09/23 15:59 Pulse Ox 97 11/09/23 15:59 O2 Del Method Room Air 11/09/23 15:59 BMI result Body Mass Index 23.7 VITAL SIGNS: Reviewed. GENERAL: Well developed, well nourished, in no acute distress. HEAD: Normocephalic/atraumatic EYES: PERRLA, EOMI EARS: Ext canals without abnormality NOSE: Nares patent bilateral OROPHARYNX: no oral lesions noted, posterior pharynx clear NECK: Supple, no adenopathy LUNGS: Normal breath sounds. No adventitious sounds or accessory muscle use. SpO2<97>; CHEST WALL: There is noted postsurgical scar at the left upper anterior chest wall that demonstrates good healing, no surrounding erythema or induration. There is no chest wall crepitus or deformity noted on the left posterior wall CARDIOVASCULAR: Regular rate and rhythm without noted murmurs, no JVD or lower extremity edema. ABDOMEN: Soft, non-tender, non-distended with bowel sounds. BACK: There is obvious musculoskeletal spasming located at the infra scapular border, there is no midline vertebral body tenderness to palpation or step-offs noted MUSCULOSKELETAL: No tenderness, deformities, or effusions noted on gross inspection. EXTREMITIES: No cyanosis, clubbing or edema. SKIN: Inspection of the skin reveals no rashes NEUROLOGIC: Alert and oriented x 4. Strength and sensation to light touch were grossly intact x 4. Medications Administered Discontinued Medications Generic Name Dose Route Start Last Admin Trade Name Freq PRN Reason Stop Dose Admin Acetaminophen 975 mg 11/09/23 16:11/09/23 16:57 Acetaminophen 325 Mg Tablet PO 11/09/23 16:30 975 mg ONCE ONE Administration Cyclobenzaprine HCl 10 mg 11/09/23 16:11/09/23 16:57 Cyclobenzaprine Hcl 10 Mg Tablet PO 11/09/23 16:30 10 mg ONCE ONE Administration Ketorolac Tromethamine 15 mg 11/09/23 16:29 11/09/23 17:00 Ketorolac Tromethamine 15 Mg/Ml Vial IM 11/09/23 16:30 Not Given ONCE ONE Lidocaine 1 patch 11/09/23 16:29 11/09/23 16:58 Lidocaine 4 % Patch Adh..Patch TRANSDERMA 11/09/23 16:30 1 patch ONCE ONE Administration Protocol Medical Decision Making Medical Decision Making [facility] Narrative: 48-year-old female with history and clinical presentation consistent with musculoskeletal/muscle spasm etiology of chest wall pain, there is no evidence of fracture and no history of traumatic injury there is no associated fever or chills to suggest pneumonia or viral illness. On clinical exam there is obvious muscle spasm noted to the left posterior chest wall area no evidence of infection. Will obtain lab work but no clinical suspicion for PE/ACS or pneumonia I reviewed all investigations and hematologic indices are grossly stable without leukocytosis and there is a stable normocytic anemia and chronic thrombocytopenia. Chemistry indices are grossly within normal limits without evidence of ABDIRAHMAN or electrolyte/liver enzyme derangements and high sensitivity troponin is undetectable without acute changes on EKG. Urinalysis is negative for UTI or hematuria. UDS is reflective patient's current medication. Chest x-ray does not demonstrate infiltrate or venous congestion otherwise my interpretation is in agreement with radiology's impression. Results and findings discussed with the patient at bedside and she understands that she will be discharged with a prescription for muscle relaxant. Differential Diagnosis Differential Diagnoses: The differential diagnosis associated with the presentation includes Please see the discussion above Admission/Observation Consideration of admission/observation: Escalation of care including admission/observation considered Please see the discussion above Lab Data MDM Lab Attestation statement: I reviewed the patient's lab results. Please see the discussion above 11/09/23 17:07 11/09/23 17:07 Labs: Lab Results 11/09/23 11/09/23 Range/Units 16:51 17:07 WBC 3.6 L (4.8-10.8) X10*3/uL RBC 4.05 L (4.20-5.50) X10*6/uL Hgb 11.4 L (12.0-16.0) g/dl Hct 34.9 L (37.0-47.0) % MCV 86.2 (80.0-98.0) fL MCH 28.1 (27.0-33.0) pg MCHC 32.7 (31.0-35.0) g/dl RDW 15.2 (11.0-16.0) % Plt Count 84 L (160-400) X10*3/uL MPV 10.5 (9.4-12.3) fL Immature Gran % (Auto) 0.3 (0.0-0.4) % Neut % (Auto) 40.6 L (45-73) % Lymph % (Auto) 47.6 H (20-40) % Iron % (Auto) 8.4 (2-11) % Eos % (Auto) 2.5 (0-4) % Baso % (Auto) 0.6 (0-2) % Lymph # (Auto) 1.7 (1.2-4.9) X10*3/uL Iron # (Auto) 0.3 (0.1-1.2) X10*3/uL Eos # (Auto) 0.1 (0.0-0.4) X10*3/uL Baso # (Auto) 0.0 (0.0-0.2) X10*3/uL Abs Immat Gran (auto) 0.01 (0.00-0.03) X10*3/uL Absolute Neuts (auto) 1.5 L (2.0-8.3) x10*3/uL Absolute Nucleated RBC 0.000 (0.0-0.012) X10*3/uL Nucleated RBC % (auto) 0.0 (0.0-0.2) /100WBC Sodium 142 (135-145) mmol/L Potassium 4.5 D (3.3-5.1) mmol/L Chloride 104 (96-108) mmol/L Carbon Dioxide 31 H (22-29) mmol/L Anion Gap 12 (12-20) BUN 11 (9-16) mg/dL Creatinine 0.76 (0.5-1.4) mg/dL Estim Creat Clear Calc 104.5 Estimated GFR > 60 Random Glucose 94 (60-115) mg/dL Calcium 9.1 D (8.4-10.2) mg/dL Total Bilirubin 0.2 (0.0-1.0) mg/dL AST 10 (5-31) U/L ALT 10 (0-31) U/L Alkaline Phosphatase 49 (39-117) U/L Troponin I High Sens < 2.7 (<3.5-17.0) ng/L Total Protein 5.8 L (6.5-8.0) g/dL Albumin 3.6 (3.5-5.0) g/dL Beta HCG, Quant < 2 mIU/mL Urine Color Dark Yellow Urine Appearance Clear Urine pH 6.5 (5.0-9.0) Ur Specific [place] 1.025 (1.005-1.025) Urine Protein Negative (Neg-Trace) mg/dL Urine Glucose (UA) Negative (Negative) mg/dL Urine Ketones 40 (Negative) mg/dL Urine Blood Negative (Negative) Urine Nitrite Negative (Negative) Ur Leukocyte Esterase Trace H (Negative) Urine RBC 0-2 (0-2) /HPF Urine WBC 0-5 (0-5) /HPF Ur Squamous Epith Cells 3-5 (0-2) /HPF Urine Bacteria 1+ (None Seen) Hyaline Casts 0-2 (0-2) /LPF Urine Opiates Screen POSITIVE H (Not Detect) Ur Buprenorphine Scrn Not Detected (Not Detect) ng/mL Ur Oxycodone Screen Positive H (Not Detect) ng/mL Urine Methadone Screen Positive H (Not Detect) ng/mL Urine Fentanyl Screen Not Detected (Not Detect) Ur Barbiturates Screen Not Detected (Not Detect) Ur Phencyclidine Scrn Not Detected (Not Detect) Ur Amphetamines Screen Not Detected (Not Detect) U Benzodiazepines Scrn Not Detected (Not Detect) Urine Cocaine Screen Not Detected (Not Detect) U Marijuana (THC) Screen Not Detected (Not Detect) Independent Interpretation I performed an independent interpretation of an: EKG Interpretation: Normal sinus rhythm, HR-69, no STEMI, SC/QRS/QTC is within normal limits. Radiology Impression Discussion of test interpretation with radiology: I have reviewed the radiologist's reading. Radiologist Impression: Please see the discussion above External Record Review External record reviewed: Outpatient record, Prior outpatient labs and Prior outpatient radiology Critical Care Time Critical Care Time Critical Care Time: Yes Total Critical Care Time: 45 Attestation: I personally attest to this time spent taking care of the patient. Discharge Plan Discharge Clinical Impression: Musculoskeletal pain, Muscle spasm Patient Disposition: Home, Self-Care Instructions: Musculoskeletal Pain (ED), Muscle Spasm (ED) Additional Instructions: 1. Please resume all other home medications. Prescriptions: New cyclobenzaprine 10 mg tablet 10 mg PO TID PRN (Reason: muscle spasm) Qty: 10 0RF No Action (DME) nebulizer and compressor [PureAir Mini Nebulizer] Device See Rx Instructions .Route Qty: 1 0RF Rx Instructions: As directed divalproex 250 mg tablet,delayed release (DR/EC) 750 mg PO BEDTIME trazodone 50 mg tablet 100 mg PO BEDTIME divalproex 500 mg tablet,delayed release (DR/EC) 500 mg PO DAILY indomethacin 50 mg capsule 50 mg PO BID Dulera 100-5 mcg/actuation HFA aerosol inhaler 2 puff inhalation BID hydroxyzine HCl 25 mg tablet 25 mg PO BID PRN (Reason: Anxiety) levetiracetam 500 mg Tablet 500 mg PO BID Qty: 1 0RF ondansetron 4 mg Tablet,Disintegrating 4 mg translingual Q6H PRN (Reason: Nausea And Vomiting) Qty: 1 0RF oxycodone 5 mg tablet 5 mg PO Q6H PRN (Reason: pain) Rx Instructions: Partial Fill upon patient request. Excedrin Extra Strength 250-250-65 mg Tablet 2 tab PO Q6H PRN (Reason: Migraine Headache) methadone [Methadose] 10 mg/mL Concentrate 25 mg PO BEDTIME Qty: 30 0RF Rx Instructions: Partial Fill upon patient request. (DME) Knee scooter See Rx Instructions .ROUTE .MEDSUPPLY Qty: 1 0RF Rx Instructions: As directed Print Language: Albanian
[2023-11-09 17:26] LABS: Platelet Count 84 X10*3/uL (160-400)
[2023-11-09 17:29] LABS: Bacteria Urine 1+ (None Seen); Hyaline Casts Urine 0-2 /LPF (0-2); RBC Urine 0-2 /HPF (0-2); WBC Urine 0-5 /HPF (0-5)
[2023-11-09 17:35] LABS: Alanine Aminotransferase 10 U/L (0-31); Albumin Level 3.6 g/dL (3.5-5.0); Alkaline Phosphatase 49 U/L (39-117); Anion Gap 12 (12-20); Aspartate Amino Transferase 10 U/L (5-31); Bilirubin Total 0.2 mg/dL (0.0-1.0); Blood Urea Nitrogen 11 mg/dL (9-16); Calcium 9.1 mg/dL (8.4-10.2); Carbon Dioxide 31 mmol/L (22-29); Chloride 104 mmol/L (96-108); Creatinine Clr Calc Pharmacy 104.5; Estimated Glomerular Filt Rate > 60; Glucose Random 94 mg/dL (60-115); Potassium 4.5 mmol/L (3.3-5.1); Sodium 142 mmol/L (135-145); Total Protein 5.8 g/dL (6.5-8.0)
[2023-11-09 17:40] LABS: HCG Quantitative < 2 mIU/mL; Troponin-I High Sensitivity < 2.7 ng/L (<3.5-17.0)
--- NOTE | 2023-11-09 17:54 | PC.NURSE ---
assumed care of pt at 1700, pt reporting 9/10 cp, denies any pain in l ankle at this time. provider aware.
[2023-11-09 19:04] VITALS: BP 106/71; PULSE 74; RESP 18; TEMP 36.3; O2SAT 95
[2023-11-09 19:10] VITALS: BP 106/71; PULSE 74; RESP 18; TEMP 36.3; O2SAT 95
== END 2023-11-09 19:11 | disposition home or self-care (01) ==
PROVIDERS: Emergency Provider Student in an Organized Health Care Education/Training Program
DX: R07.89 Other chest pain (principal); M54.50 Low back pain, unspecified; M62.830 Muscle spasm of back; M54.2 Cervicalgia; R10.2 Pelvic and perineal pain; Z79.899 Other long term (current) drug therapy; Z51.81 Encounter for therapeutic drug level monitoring
CPT/HCPCS: 36415; 71045; 80053; 80307; 81001; 81003; 84484; 84702; 85025; 93005; 99285

== ENCOUNTER → 2023-11-09 13:04 | Outpatient (BNV) | payer OTHER, SELFPAY | PROVIDERS: Visit Provider Internal Medicine | DX: R07.9 Chest pain, unspecified (principal) | CPT/HCPCS: 93010 ==

== ENCOUNTER 2023-11-11 11:14 | Outpatient (AMB) | payer OTHER, SELFPAY ==
--- NOTE | 2023-11-11 11:16 | MHC.OFFVIS ---
Vital Signs 11/11/23 11:17 Height 6 ft BMI Reason not done Patient refused/unable BP 130/84 Blood Pressure Location Lt brachial Position Sitting Pulse 105 H Intake Visit Reasons: [address] 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 Caregiver Required: No Allergies amoxicillin [AMOXICILLIN] Allergy (Intermediate, Verified 11/09/23 13:36) RASH Penicillins [PENICILLINS] Allergy (Intermediate, Verified 11/09/23 13:36) RASH Medication List - Last Reconciled 11/11/23 by Lalit Woody MD [id number] 250-250-65 mg (Excedrin Extra Strength) 2 tabs PO Q6H PRN cyclobenzaprine 10 mg PO TID PRN divalproex 750 mg PO BEDTIME divalproex 500 mg PO DAILY hydroxyzine HCl 25 mg PO BID PRN indomethacin 50 mg PO BID [Knee scooter As directed] levetiracetam 500 mg PO BID methadone (Methadose) 25 mg (2.5 mL) PO BEDTIME mometasone-formoterol 100-5 mcg/actuation (Dulera) 2 puffs inhalation BID nebulizer and compressor (PureAir Mini Nebulizer) As directed ondansetron 4 mg translingual Q6H PRN oxycodone 5 mg PO Q6H PRN trazodone 150 mg PO BEDTIME HPI Comments Details: Ld comes for follow-up. She underwent a pacemaker placement due to persistent severe bradycardia and need for methadone use. However after pacemaker placement she said she felt very well and felt like she would much more energy. Since discharge from the hospital she has not had any syncopal episode although he has episode of lightheadedness. She has increased her fluid intake. She continues to have issues with muscle spasm. She has rapidly downgraded her methadone use and is currently only using 10 mg. She has intermittent episodes of fluttering/palpitations. Today while monitoring her pacer telemetry she would frequent episodes of fast heart rate up to 120 beats per minute quite suddenly suggestive of sinus tachycardia. [facility] Medical History Cardiac pacemaker in situ Opioid use disorder Seizure disorder Clavicle fracture Narcotic abuse Seizures Asthma COPD (chronic obstructive pulmonary disease) Surgical History History of ankle surgery (08/05/23) H/O right knee surgery H/O left knee surgery Social History Household Members: Family and Other Household Members Other:: father, mother, daughter Housing: House Do you presently have visiting nurse or other home services: Yes Alcohol intake: unknown Patient Tobacco Use Status: Current everyday Tobacco user Tobacco use type: Cigarette e-Cigarette/Vaping Use: Currently Using Second Hand Smoke Exposure: No Substance Use Type: Painkillers and Prescription Drugs Advance Directives Date on File: 07/31/23 service: No Review of Systems Const Denies chills, Denies fatigue, Denies fever(s), Denies frequent falls, Denies weakness, Denies weight gain and Denies weight loss ENT Denies dizziness Card Denies chest pain, Denies leg edema, Denies lightheadedness, Denies palpitations, Denies dyspnea, Denies dyspnea on exertion, Denies orthopnea and Denies other (loss of consciousness) Resp Denies cough, Denies dyspnea and Denies dyspnea on exertion GI Denies hematochezia and Denies change in stool character Musc Denies abnormal gait, Denies muscle weakness, Denies numbness, Denies radiating pain into limb and Denies tingling Neuro Denies abnormal gait, Denies dizziness, Denies frequent falls, Denies numbness, Denies tingling and Denies weakness Endo Denies fatigue and Denies palpitations Physical Exam Vital Signs: Last Vital Signs Pulse 105 H 11/11/23 11:17 BP 130/84 11/11/23 11:17 Const General: cooperative, comfortable, no acute distress, alert, awake and anxious Nutritional Appearance: average body habitus Orientation/consciousness: patient oriented x3 Neck Neck: Yes trachea midline, Yes supple and Yes no JVD Resp Effort & Inspection: normal respiratory effort Auscultation: clear to auscultation bilaterally Cardio Jugular venous distension: no JVD Rate: tachycardic Rhythm: regular rhythm Heart sounds: S1 normal heart sound present, S2 normal heart sound present, no click, no gallops, no murmurs and no rubs GI Auscultation: normal bowel sounds Skin General skin exam: no rashes or lesions noted Neuro General: patient oriented x3 and no focal motor deficits Office Procedures Cardiac Device Check Cardiac Device Check Details: Dual-chamber [facility] pacemaker in place. Programmed in DDDR at 60 beats per minute. Frequent episodes of fast heart rate was noted consistent with sinus tachycardia. Atrial pacing a 29% of the time. Ventricular pacing 5.6% of time. Atrial ventricular sensing was adequate. Atrial ventricular pacing thresholds adequate and reprogrammed to enhance battery life. Pacing lead impedance is stable. No significant arrhythmias noted. Battery life is stent to 11 years [id number] Cardiac Device Check, pacemaker dual lead Procedure code (CPT) selection complete Assessment & Plan Assessment & Plan (1) Cardiac pacemaker in situ: Comment: [facility] Dual Chamber placed on 09/25/23 Code(s): Z95.0 - Presence of cardiac pacemaker Category: Medical Plan: Cardiac pacemaker in-situ for noted significant bradycardia and sinoatrial charles dysfunction. Her symptoms significantly improved since pacemaker placement she has not had any recurrent syncopal episodes. Pacemaker is working well. Advised to continue to monitor remotely every 3 months and follow up in the clinic in 6 months time. Pacemaker was reprogrammed for adequate functioning. (2) Lightheadedness: Code(s): R42 - Dizziness and giddiness Category: Medical Plan: Lightheadedness with episodes of palpitations. Noted to have frequent sinus tachycardia while doing a pacer telemetry. Blood pressure is stable. Will add Toprol-XL 25 mg daily to her regimen. Recommend to continue to increase her fluid intake and also have adequate salt intake. Advised to monitor blood pressure at home maintain a log. If she continues to have episodes of lightheadedness and documented low blood pressures may require therapy with midodrine. This was discussed with her. Will follow up in the clinic in 6 months time, sooner p.r.n.. Thank you for allowing me to partake in her care Coding Level of Care Code Est Pt Level 4 (35403) Diagnoses Cardiac pacemaker in situ Z95.0 Lightheadedness R42 CPT Codes Cardiac Device Check - Cardiac Device 2: [id number] Cardiac Device Check, pacemaker dual lead ([id number])
[2023-11-11 11:17] VITALS: BP 130/84; PULSE 105
== END 2023-11-11 11:34 | disposition home or self-care (01) ==
PROVIDERS: PCP Internal Medicine; Visit Provider Internal Medicine Cardiovascular Disease
DX: R42 Dizziness and giddiness (principal); Z95.0 Presence of cardiac pacemaker
CPT/HCPCS: 93280; 99214

== ENCOUNTER → 2023-11-11 11:14 | Outpatient (BNVA) | payer OTHER, SELFPAY | PROVIDERS: PCP Internal Medicine; Visit Provider Internal Medicine Cardiovascular Disease | DX: R42 Dizziness and giddiness (principal); Z45.018 Encounter for adjustment and management of other part of cardiac pacemaker | CPT/HCPCS: 93280; 99212 ==

== ENCOUNTER 2023-11-12 06:54 | Outpatient (REF) | payer OTHER, SELFPAY ==
--- NOTE | ~2023-11-12 | XR_ITS ---
EXAMINATION: XR ANKLE, LEFT CLINICAL INFORMATION: Pain in left ankle and joints of left foot. COMPARISON: 10/01/2023. TECHNIQUE: AP, lateral, and mortise views of the left ankle. FINDINGS: Redemonstration of ORIF with lateral plate and screws transfixing a healing fracture of lateral malleolus and 2 screws transfixing healed fracture of medial malleolus. Faint calcification/ossification in the soft tissues medial to the medial malleolus redemonstrated. Ankle mortise is maintained. Hardware appears intact. XR/XR ankle LT min 3V IMPRESSION: Redemonstration of ORIF with lateral plate and screws transfixing a healing fracture of lateral malleolus and 2 screws transfixing healed fracture of medial malleolus. Faint calcification/ossification in the soft tissues medial to the medial malleolus redemonstrated. Ankle mortise is maintained. Hardware appears intact.
== END 2023-11-12 06:55 | disposition home or self-care (01) ==
LOC: HO.HOSX 06:54
PROVIDERS: Visit Provider Physician Assistant
DX: M17.11 Unilateral primary osteoarthritis, right knee (principal)
CPT/HCPCS: 73610; 99212

== ENCOUNTER 2023-11-12 13:39 | Outpatient (AMB) | payer OTHER, SELFPAY ==
--- NOTE | 2023-11-12 13:50 | MHC.OFFVIS ---
Vital Signs 11/12/23 13:50 Height 6 ft Intake Visit Reasons: PO- Lt ankle ORIF 08/05/23-follow up Intake Note: Chi a 48 year old female presents today for a post operative left ankle ORIF on 08/05/23 NE. States she has no pain in her ankle and is doing good with P.T. She is hoping to D/C boot today. Allergies amoxicillin [AMOXICILLIN] Allergy (Intermediate, Verified 11/12/23 13:53) RASH Penicillins [PENICILLINS] Allergy (Intermediate, Verified 11/12/23 13:53) RASH HPI HPI PO- Lt ankle ORIF 08/05/23-follow up: Details: 48-year-old female who returns to the office today for post-op left ankle ORIF, 08/05/[address] Vazquez. She states she has no pain and is doing well overall. She is working on physical therapy with benefits. She has no concerns today. [facility] Medical History Cardiac pacemaker in situ Opioid use disorder Seizure disorder Clavicle fracture Narcotic abuse Seizures Asthma COPD (chronic obstructive pulmonary disease) Surgical History History of ankle surgery (08/05/23) H/O right knee surgery H/O left knee surgery Social History Household Members: Family and Other Household Members Other:: father, mother, daughter Housing: House Do you presently have visiting nurse or other home services: Yes Alcohol intake: unknown Patient Tobacco Use Status: Current everyday Tobacco user Tobacco use type: Cigarette e-Cigarette/Vaping Use: Currently Using Second Hand Smoke Exposure: No Substance Use Type: Painkillers and Prescription Drugs Advance Directives Date on File: 07/31/23 service: No Review of Systems Const All systems reviewed & are unremarkable except as noted in HPI and below Physical Exam Extrem Other: Left ankle: Normal to inspection.Incision well healed. No swelling. She has good ROM with equal strength throughout. NVI. Results Reviewed Results Reviewed: X-rays of the right ankle obtained in the office today show intact orthopedic hardware ankle mortise intact, interval healing of fracture Assessment & Plan Assessment & Plan (1) Osteoarthritis of right knee: Code(s): M17.11 - Unilateral primary osteoarthritis, right knee Category: Medical Plan She was transitioned to a lace up ankle brace. She will continue to weight bearing as tolerated and work on ROM and strengthening exercises. She can increase activity as tolerated and see me back as needed. Orders: Orders XR ankle LT min 3V Today M25.572 - Pain in left ankle and joints of left foot Patient Instructions: Scribed for Burt Cruz PA-C, by Elio Bullock medical office professional instructor, on 11/12/2023 at 1:30 PM EST. I, Burt Cruz PA-C, have personally reviewed and agree with the information entered by the scribe. Coding Level of Care Code Global (08546) Diagnoses Osteoarthritis of right knee M17.11
== END 2023-11-12 14:22 | disposition home or self-care (01) ==
PROVIDERS: PCP Internal Medicine; Visit Provider Physician Assistant
DX: S82.842D Displaced bimalleolar fracture of left lower leg, subsequent encounter for closed fracture with routine healing (principal)
CPT/HCPCS: 99213

== ENCOUNTER 2023-12-22 10:14 | Inpatient (IN) | payer OTHER, SELFPAY ==
[2023-12-22 10:16] VITALS: BP 109/88; PULSE 121; RESP 18; TEMP 36.4; BMI 25.1
--- NOTE | 2023-12-22 10:28 | ECG_ITS ---
Test Reason : CHEST PAIN WITH TACHYCARDIA Blood Pressure : / mmHG Vent. Rate : 097 BPM Atrial Rate : 097 BPM P-R Int : 162 ms QRS Dur : 082 ms QT Int : 354 ms P-R-T Axes : 063 071 096 degrees QTc Int : 449 ms Normal sinus rhythm Possible Left atrial enlargement Low voltage QRS T wave abnormality, consider anterolateral ischemia Abnormal ECG When compared with ECG of 09-NOV-2023 13:39, Questionable change in QRS axis T wave inversion now evident in Anterolateral leads Referred By: Generic ED Physician Electronically Signed By:CLEVELAND LEDEZMA
[2023-12-22 11:00] LABS: Basophils Percent Auto 0.4 % (0-2); Eosinophils Percent Auto 0.2 % (0-4); Hematocrit 41.1 % (37.0-47.0); Hemoglobin 13.6 g/dl (12.0-16.0); Imm Gran Abs Auto 0.02 X10*3/uL (0.00-0.03); Imm Gran Pct Auto 0.4 % (0.0-0.4); Lymphocytes Absolute Auto 0.9 X10*3/uL (1.2-4.9); Lymphocytes Percent Auto 18.2 % (20-40); MANUAL DIFF FLAG SCAN; Mean Corpuscular HGB Conc 33.1 g/dl (31.0-35.0); Mean Corpuscular Hemoglobin 28.9 pg (27.0-33.0); Mean Corpuscular Volume 87.3 fL (80.0-98.0); Monocytes Absolute Auto 0.4 X10*3/uL (0.1-1.2); Monocytes Percent Auto 7.9 % (2-11); Neutrophils Absolute Auto 3.5 x10*3/uL (2.0-8.3); Neutrophils Percent Auto 72.9 % (45-73); PLT CLUMP 1; Red Blood Count 4.71 X10*6/uL (4.20-5.50); Red Cell Distribution Width 14.7 % (11.0-16.0); SCAN SMEAR FLAG 1
[2023-12-22 11:11] LABS: Alanine Aminotransferase 45 U/L (0-31); Albumin Level 4.2 g/dL (3.5-5.0); Alkaline Phosphatase 93 U/L (39-117); Anion Gap 17 (12-20); Aspartate Amino Transferase 46 U/L (5-31); Bilirubin Total 0.2 mg/dL (0.0-1.0); Calcium 9.9 mg/dL (8.4-10.2); Carbon Dioxide 23 mmol/L (22-29); Chloride 104 mmol/L (96-108); Creatinine Clr Calc Pharmacy 67.8; Estimated Glomerular Filt Rate 49; Glucose Random 156 mg/dL (60-115); Potassium 4.7 mmol/L (3.3-5.1); Sodium 139 mmol/L (135-145); Total Protein 7.1 g/dL (6.5-8.0)
[2023-12-22 11:16] LABS: Mean Platelet Volume 10.9 fL (9.4-12.3); Platelet Count 135 X10*3/uL (160-400); SLIDE REVIEW VERIFIED; White Blood Count 4.8 X10*3/uL (4.8-10.8)
--- NOTE | 2023-12-22 11:25 | PC.NURSE ---
Pt reports multiple complaints: migraine, nausea, palpitations, vomiting and SI thoughts. Pt reports she relapsed yesterday on cocaine, denies any alcohol or other drug use. Denies CP or SOB. Pt changes into safety attire with security and RN. Pt found to have drugs on her that was taken by security. Belongings secured in locker 8. Alert and oriented, breathing even and unlabored, skin clammy. Pt reports migraine, 10/10, +light sensitivity. Does have one episode of vomiting in bathroom.
[2023-12-22 11:51] LABS: Appearance Urine Cloudy; Color Urine Dark Yellow; Glucose Urine UA Negative (Negative); Leukocyte Esterase Urine Negative (Negative); Nitrite Urine Negative (Negative); Specific Gravity - Urine >= 1.030 (1.005-1.025); UMIC TRIGGER UACC YES; Urine Blood Negative (Negative); Urine Ketones 15 mg/dL (Negative); Urine Protein 30 (1+) mg/dL (Neg-Trace)
--- NOTE | 2023-12-22 11:59 | ED_ITS ---
HPI - Psych General Chief Complaint: Psychiatric Symptoms Stated Complaint: fast heart rate, nervous, nausea Time Seen by Provider: 12/22/23 11:58 Source: patient Mode of arrival: EMS Limitations: no limitations History of Present Illness ED Provider: Dr. Nikunj Rocha HPI Narrative: 48-year-old female with a history hypertension, migraines, seizures, left leg fracture with multiple surgeries on oxycodone secondary to pain, pacemaker secondary bradycardia presents emergency department for evaluation of suicidal ideation, cocaine use, headache. Patient states that she relapsed and started using intranasal cocaine. She states that she last use yesterday at around 20:00 hours. She states that several hours later she then developed a headache. She states the headache came on gradually. Headaches been constant but waxing and waning in intensity. She states the pain is greater than 10/10 at its worst. The pain is a sharp/pressure-like pain located behind her eyes. She would associated nausea with multiple episodes of vomiting. She denied fever, chills, numbness, weakness, chest pain or shortness of breath. She states that she feels hopeless and it she has a burden on her family and everyone that she knows. She states that her family just puts her in nursing homes and do not want to help her. She states that over the last 3 days she has been feeling suicidal and she wants to . She does not have a specific plan. She states that when she was in her 20s she did overdose on a bottle of Tylenol. Related Data Home Medications ?Medication ?Instructions ?Recorded ?Confirmed divalproex 250 mg tablet,delayed 750 mg PO BEDTIME 07/31/23 11/11/23 release divalproex 500 mg tablet,delayed 500 mg PO DAILY 07/31/23 11/11/23 release hydroxyzine HCl 25 mg tablet 25 mg PO BID PRN Anxiety 07/31/23 11/11/23 indomethacin 50 mg capsule 50 mg PO BID 07/31/23 11/11/23 mometasone-formoterol HFA 100 2 puff inhalation BID 07/31/23 11/11/23 mcg-5 mcg/actuation aerosol inhaler (Dulera) [id number] 250 2 tab PO Q6H PRN Migraine Headache 09/21/23 11/11/23 mg-250 mg-65 mg tablet (Excedrin Extra Strength) trazodone 150 mg tablet 150 mg PO BEDTIME 11/11/23 11/11/23 Previous Rx's ?Medication ?Instructions ?Recorded nebulizer and compressor (PureAir #1 ea 04/09/21 Mini Nebulizer) levetiracetam 500 mg tablet 500 mg PO BID #1 tab 08/12/23 ondansetron 4 mg disintegrating 4 mg translingual Q6H PRN Nausea 08/12/23 tablet And Vomiting #1 tab Knee scooter #1 ea 09/03/23 methadone 10 mg/mL oral 25 mg (2.5 mL) PO BEDTIME #30 mL 09/28/23 concentrate (Methadose) cyclobenzaprine 10 mg tablet 10 mg PO TID PRN muscle spasm #10 11/09/23 tabs metoprolol succinate 25 mg 25 mg PO DAILY #30 tabs 11/12/23 tablet,extended release 24 hr (Toprol XL) Allergies Allergy/AdvReac Type Severity Reaction Status Date / Time amoxicillin [AMOXICILLIN] Allergy Intermediate RASH Verified 12/22/23 10:18 Penicillins [PENICILLINS] Allergy Intermediate RASH Verified 12/22/23 10:18 Review of Systems 2 Review of Systems: Yes all other systems are reviewed and are negative [facility] Past Medical History [facility] Narrative: Social history: She denies tobacco use. She denies alcohol use. She does admit to using intranasal cocaine. Medical History Cardiac pacemaker in situ Opioid use disorder Seizure disorder Clavicle fracture Narcotic abuse Seizures Asthma COPD (chronic obstructive pulmonary disease) Surgical History History of ankle surgery (08/05/23) H/O right knee surgery H/O left knee surgery Social History Social History Household Members: Family and Other Household Members Other:: father, mother, daughter Housing: House Do you presently have visiting nurse or other home services: Yes Alcohol intake: unknown Patient Tobacco Use Status: Current everyday Tobacco user Tobacco use type: Cigarette Smoked in Last 30 Days: No e-Cigarette/Vaping Use: Currently Using Second Hand Smoke Exposure: No Use of substances other than those prescribed or required for medical reasons: Yes Substance Use Type: Crack/Cocaine and Heroin Advance Directives: Yes Advance Directives on File: Yes Advance Directives Date on File: 07/31/23 service: No Physical Exam 2 Vital Signs: Vital Signs: Last Vital Signs Temp 97.4 F 12/22/23 14:25 Pulse 89 12/22/23 14:25 Resp 18 12/22/23 14:25 BP 95/56 L 12/22/23 14:25 Pulse Ox 96 12/22/23 14:25 O2 Del Method Room Air 12/22/23 14:25 BMI result Body Mass Index 25.1 Vital signs were normal Exam: General: Awake, alert, patient was tearful, she is in distress secondary to headache, she has had multiple episodes of emesis here in the emergency criminal justice department chair: Normocephalic, atraumatic, the patient does have tenderness with palpation over her maxillary sinus area of her face bilaterally with no swelling or erythema in these areas, she has no temporal tenderness EENT: PERRL, Lids normal, sclera normal, conjunctiva normal, nose normal , ears normal, throat without erythema or exudates Neck: Supple, no adenopathy Lung: breath sounds symmetric, no wheezing, rales or rhonchi Chest: symmetric movement, nontender Heart: regular rate and rhythm, normal S1, S2 no murmurs or rubs Abdomen: soft, non-tender, nondistended, normal bowel sounds Back: no vertebral tenderness, no CVAT Extremities: no deformities, moves all extremities symmetrically Neuro: Awake, alert, oriented, normal speech, cranial nerves intact, moves all extremities symmetrically Psych: Pleasant, cooperative Medications Administered Discontinued Medications Generic Name Dose Route Start Last Admin Trade Name Job PRN Reason Stop Dose Admin Diphenhydramine HCl 50 mg 12/22/23 12:07 12/22/23 12:27 Diphenhydramine Hcl 50 Mg/Ml Vial IVPUSH 12/22/23 12:08 50 mg ONCE STA Administration Sodium Chloride 1,000 mls @ 999 mls/hr 12/22/23 12:07 12/22/23 13:44 Ns IV 12/22/23 13:07 Infused .Q1H1M STA Infusion Ketorolac Tromethamine 15 mg 12/22/23 12:07 12/22/23 12:26 Ketorolac Tromethamine 15 Mg/Ml Vial IVPUSH 12/22/23 12:08 15 mg ONCE STA Administration Lorazepam 2 mg 12/22/23 16:10 12/22/23 16:26 Lorazepam 1 Mg Tablet PO 12/22/23 16:11 2 mg ONCE STA Administration Metoclopramide HCl 10 mg 12/22/23 12:07 12/22/23 12:30 Metoclopramide Hcl 10 Mg/2 Ml Vial IVPUSH 12/22/23 12:08 10 mg ONCE STA Administration Medical Decision Making Medical Decision Making [facility] Narrative: 48-year-old female with a history hypertension, migraines, seizures, left leg fracture with multiple surgeries on oxycodone secondary to pain, pacemaker secondary bradycardia presents emergency department for evaluation of suicidal ideation, cocaine use, headache. Patient states that she relapsed and used cocaine yesterday at around 20:00 hours and several hours later she had a gradual onset of headache which is a pressure-like sensation behind her eyes with the pain being greater than 10/10 associated with nausea and vomiting. Patient states she is suicidal but does not have a plan. She feels hopeless and feels like she has a burden on her family. She did overdose on Tylenol when she was in her 20s. Vital signs were normal. Physical examination revealed that she was in distress secondary to her headache, exam did reveal tenderness palpation of her face in the maxillary sinus areas otherwise exam was unremarkable. Differential diagnosis: ?Includes but is not limited to cerebral bleed, subarachnoid hemorrhage, meningitis, giant cell arteritis, migraine headache, rhabdomyolysis, suicidal ideation, depression, anxiety Following evaluation was ordered: CBC, CMP, urinalysis, urine tox screen, ESR, CRP, CK, EKG Patient was initially treated with the following: Toradol 15 mg IV, Reglan 10 mg IV, Benadryl 50 mg IV, normal saline x1 L Course: 12:16 My interpretation patient's laboratory evaluation as follows: CBC was normal except for low platelet count of 132,000-this is chronic. CMP revealed low CO2 29, elevated glucose 156, elevated AST and ALT 46 and 45, urinalysis was positive for protein. Microscopic was negative for WBCs, RBCs. 2+ positive bacteria, 6-10 hyaline casts. Toxicology was positive for opiates, oxycodone, methadone, fentanyl, amphetamines, cocaine. ESR was normal at 3. CRP was normal 0.15. CK was normal at 46. 16:10 The patient is feeling better, her headache is resolved but she is feeling anxious therefore she was ordered to get Ativan 2 mg orally. Patient is medically cleared for care team evaluation. Patient will remain on a one-to-one observation. 21:58 Start physician observation at 21:58 hours The patient refused to talk to care team. She has been resting comfortably and does not appear to be in distress. At the end of my shift, the patient's care was turned over to my colleague, Dr. Janice Raya Patient will remain in the emergency department on a one-to-one observation until disposition can be determined by the care team or until patient's symptoms improve over time.. Lab Data 12/22/23 10:41 12/22/23 10:41 Labs: Lab Results 12/22/23 12/22/23 Range/Units 10:41 11:45 WBC 4.8 (4.8-10.8) X10*3/uL RBC 4.71 (4.20-5.50) X10*6/uL Hgb 13.6 (12.0-16.0) g/dl Hct 41.1 (37.0-47.0) % MCV 87.3 (80.0-98.0) fL MCH 28.9 (27.0-33.0) pg MCHC 33.1 (31.0-35.0) g/dl RDW 14.7 (11.0-16.0) % Plt Count 135 L D (160-400) X10*3/uL MPV 10.9 (9.4-12.3) fL Immature Gran % (Auto) 0.4 (0.0-0.4) % Neut % (Auto) 72.9 (45-73) % Lymph % (Auto) 18.2 L (20-40) % [place] % (Auto) 7.9 (2-11) % Eos % (Auto) 0.2 (0-4) % Baso % (Auto) 0.4 (0-2) % Lymph # (Auto) 0.9 L (1.2-4.9) X10*3/uL [place] # (Auto) 0.4 (0.1-1.2) X10*3/uL Eos # (Auto) 0.0 (0.0-0.4) X10*3/uL Baso # (Auto) 0.0 (0.0-0.2) X10*3/uL Abs Immat Gran (auto) 0.02 (0.00-0.03) X10*3/uL Absolute Neuts (auto) 3.5 (2.0-8.3) x10*3/uL Absolute Nucleated RBC 0.000 (0.0-0.012) X10*3/uL Nucleated RBC % (auto) 0.0 (0.0-0.2) /100WBC Smear Tech's Comments VERIFIED ESR 3 (0-20) MM/HR Sodium 139 (135-145) mmol/L Potassium 4.7 (3.3-5.1) mmol/L Chloride 104 (96-108) mmol/L Carbon Dioxide 23 (22-29) mmol/L Anion Gap 17 (12-20) BUN 27 H (9-16) mg/dL Creatinine 1.17 (0.5-1.4) mg/dL Estim Creat Clear Calc 67.8 Estimated GFR 49 Random Glucose 156 H (60-115) mg/dL Calcium 9.9 D (8.4-10.2) mg/dL Total Bilirubin 0.2 (0.0-1.0) mg/dL AST 46 H (5-31) U/L ALT 45 H (0-31) U/L Alkaline Phosphatase 93 (39-117) U/L Total Creatine Kinase 46 (26-140) U/L C-Reactive Protein 0.15 (< or = 0.50) mg/dL Total Protein 7.1 (6.5-8.0) g/dL Albumin 4.2 (3.5-5.0) g/dL Urine Color Dark Yellow Urine Appearance Cloudy Urine pH 5.0 (5.0-9.0) Ur Specific [place] >= 1.030 H (1.005-1.025) Urine Protein 30 (1+) H (Neg-Trace) mg/dL Urine Glucose (UA) Negative (Negative) mg/dL Urine Ketones 15 (Negative) mg/dL Urine Blood Negative (Negative) Urine Nitrite Negative (Negative) Ur Leukocyte Esterase Negative (Negative) Urine RBC 0-2 (0-2) /HPF Urine WBC 0-5 (0-5) /HPF Ur Squamous Epith Cells 3-5 (0-2) /HPF Calcium Oxalate Crystal Present Urine Bacteria 2+ (None Seen) Hyaline Casts 6-10 (0-2) /LPF Urine Opiates Screen POSITIVE H (Not Detect) Ur Buprenorphine Scrn Not Detected (Not Detect) ng/mL Ur Oxycodone Screen Positive H (Not Detect) ng/mL Urine Methadone Screen Positive H (Not Detect) ng/mL Urine Fentanyl Screen POSITIVE H (Not Detect) Ur Barbiturates Screen Not Detected (Not Detect) Ur Phencyclidine Scrn Not Detected (Not Detect) Ur Amphetamines Screen POSITIVE H (Not Detect) U Benzodiazepines Scrn Not Detected (Not Detect) Urine Cocaine Screen POSITIVE H (Not Detect) U Marijuana (THC) Screen Not Detected (Not Detect) Discharge Plan Discharge Clinical Impression: Suicidal ideation, Cocaine use, Polysubstance abuse Headache, migraine Qualifiers: Migraine type: unspecified Status migrainosus presence: without status migrainosus Intractability: not intractable Qualified Code(s): G43.909 - Migraine, unspecified, not intractable, without status migrainosus Patient Disposition: Still a Patient Prescriptions: No Action metoprolol succinate [Toprol XL] 25 mg tablet extended release 24 hr 25 mg PO DAILY Qty: 30 5RF (DME) nebulizer and compressor [PureAir Mini Nebulizer] Device See Rx Instructions .Route Qty: 1 0RF Rx Instructions: As directed cyclobenzaprine 10 mg tablet 10 mg PO TID PRN (Reason: muscle spasm) Qty: 10 0RF divalproex 250 mg tablet,delayed release (DR/EC) 750 mg PO BEDTIME divalproex 500 mg tablet,delayed release (DR/EC) 500 mg PO DAILY indomethacin 50 mg capsule 50 mg PO BID Dulera 100-5 mcg/actuation HFA aerosol inhaler 2 puff inhalation BID hydroxyzine HCl 25 mg tablet 25 mg PO BID PRN (Reason: Anxiety) levetiracetam 500 mg Tablet 500 mg PO BID Qty: 1 0RF ondansetron 4 mg Tablet,Disintegrating 4 mg translingual Q6H PRN (Reason: Nausea And Vomiting) Qty: 1 0RF Excedrin Extra Strength 250-250-65 mg Tablet 2 tab PO Q6H PRN (Reason: Migraine Headache) methadone [Methadose] 10 mg/mL Concentrate 25 mg PO BEDTIME Qty: 30 0RF Rx Instructions: Partial Fill upon patient request. trazodone 150 mg tablet 150 mg PO BEDTIME (DME) Knee scooter See Rx Instructions .ROUTE .MEDSUPPLY Qty: 1 0RF Rx Instructions: As directed Interventions: Dieterich-Suicide Risk Severity Scale Last Done: 12/22/23 11:21 Print Language: Spanish
[2023-12-22 12:02] LABS: Amphetamine Screen Urine POSITIVE (Not Detect); Barbiturates, Urine Not Detected (Not Detect); Benzodiazepines Screen Urine Not Detected (Not Detect); Buprenorphine Scr Not Detected (Not Detect); Cannabinoid Screen Urine Not Detected (Not Detect); Cocaine Screen Urine POSITIVE (Not Detect); Fentanyl, urine POSITIVE (Not Detect); Methadone Screen, Urine Positive (Not Detect); Opiate Screen Urine POSITIVE (Not Detect); Oxycodone Screen Urine Positive (Not Detect); Phencyclidine Screen Urine Not Detected (Not Detect)
[2023-12-22 12:03] VITALS: BP 148/72; PULSE 118; RESP 19; O2SAT 95
[2023-12-22 12:05] LABS: Bacteria Urine 2+ (None Seen); Calcium Oxalate Crystals Urine Present; RBC Urine 0-2 /HPF (0-2); WBC Urine 0-5 /HPF (0-5)
[2023-12-22] MEDS: Ketorolac Tromethamine 15 MG/ML VIAL IVPUSH (12:26)
[2023-12-22] MEDS: diphenhydrAMINE HCL 50 MG/ML VIAL IVPUSH (12:27)
[2023-12-22] MEDS: Metoclopramide HCl 10 MG/2 ML VIAL IVPUSH (12:30)
[2023-12-22 12:31] LABS: Blood Urea Nitrogen 27 mg/dL (9-16)
[2023-12-22] MEDS: 0.9 % Sodium Chloride 1,000 ML 999 ML IV (12:32)
--- NOTE | 2023-12-22 12:43 | PC.NURSE ---
Pt has ring on her hand, reports she will not take it off for muslim reasons due to ashes inside it refuses adamantly. Took off her other jewelry and belongings. bonus clerk aware of situation.
[2023-12-22 12:52] LABS: C Reactive Protein 0.15 mg/dL (< or = 0.50)
[2023-12-22 13:20] LABS: Erythrocyte Sedimentation Rate 3 MM/HR (0-20)
[2023-12-22 14:25] VITALS: BP 95/56; PULSE 89; RESP 18; TEMP 36.3; O2SAT 96
--- NOTE | 2023-12-22 15:11 | PC.NURSE ---
Pt sleeping, more calm and cooperative at this time. Appears more comfortable.
[2023-12-22] MEDS: LORazepam 1 MG TABLET 2 MG PO (16:26)
--- NOTE | 2023-12-22 18:42 | MHC.CARE ---
CARE Team attempted to meet with the pt and she refused stating that she wasn't in the mood right now, but that she needs mental health treatment and not substance use treatment. CARE Team made the provider aware and CARE Team will attempt to meet with her again later in the evening.
--- NOTE | 2023-12-23 00:49 | MHC.CARE ---
CARE Team attempted to wake the pt at 2200 and again at 2300 to no avail. Pt will be seen in the morning by the CARE Team.
[2023-12-23 01:53] VITALS: BP 101/68; PULSE 83; RESP 16; TEMP 36.4; O2SAT 99
--- NOTE | 2023-12-23 08:09 | MHC.CARE ---
CARE Team attempts to meet with pt to conduct a crisis assessment. Pt refuses to participate in the assessment stating that she is Too tired and exhausted to participate. Pt reports that she will participate when she is ready . CARE Team attempts to explain the need to complete the crisis assessment, pt grows agitated with CARE Team and continues to refuse to participate.
--- NOTE | 2023-12-23 08:56 | PC.NURSE ---
Addendum entered by Becca Levy 12/23/23 09:09: mother at bedside at this time Original Note: ambulated from main ER to [facility], per care team, mother to come in to attempt to have patient meet with care team. continues with pending eval
--- NOTE | 2023-12-23 10:34 | PHA.MEDREC ---
Addendum entered by Albert Edge 12/23/23 10:44: Confirmed depakote dosing with Becca, who reported that pt's mother handles medications and reported that she gives pt the 750mg and 500mg dosing despite claim history. Original Note: Pharmacy Consult ? Medication Reconciliation Pharmacy has completed the medication reconciliation.Reviewed med rec done by nursing
[2023-12-23 11:20] VITALS: BP 102/55; PULSE 91; RESP 16; TEMP 37.1; O2SAT 97
--- NOTE | 2023-12-23 11:20 | PC.NURSE ---
verified methadone dose with Bandar CALLAWAY at [facility] patient receives home bottles, received them on 12/18/2023 0748 takes a split dose 17mg AM and 10mg PM. has bottles through 12/24/23
[2023-12-23] MEDS: Metoprolol Succinate ER 25 MG TAB.ER.24H PO (11:21)
[2023-12-23] MEDS: Divalproex Sodium 500 MG TABLET.DR PO (11:21)
[2023-12-23] MEDS: levETIRAcetam 500 MG TABLET PO ×2 (11:22→21:51)
--- NOTE | 2023-12-23 11:30 | HE.PHANOTE ---
Addendum entered by Priscilla Li [facility] 12/23/23 12:48: Pt said her last home dose was on 12/22/23 alfredo per nurse Becca Levy. Original Note: RE:METHADONE DOSING Patient was given methadone bottles (split dose 17 mg AM and 10 mg PM) for 12/18/23 0748 to 12/24/23 per Bandar CALLAWAY at [facility].
[2023-12-23] MEDS: oxyCODONE HCl Immed Release 5 MG TABLET PO ×2 (13:35→18:53)
[2023-12-23] MEDS: methADONE HCl 20 MG/2 ML ORAL.CONC 17 MG PO (13:53)
[2023-12-23] MEDS: hydrOXYzine HCL 25 MG TABLET PO ×2 (16:02→17:15)
[2023-12-23 16:53] VITALS: BP 109/63; PULSE 79; RESP 18; TEMP 36.8; O2SAT 98
[2023-12-23 16:54] VITALS: BMI 25.2
[2023-12-23] MEDS: OLANZapine 5 MG TABLET PO (17:14)
[2023-12-23] MEDS: Cyclobenzaprine HCl 10 MG TABLET PO (17:15)
--- NOTE | 2023-12-23 18:21 | PC.NURSE ---
Patient signed a 3 Day Notice. Up 12/28/23.
--- NOTE | 2023-12-23 18:35 | PC.ADMIT ---
Ld was admitted to at approx 16:45 from? [facility] for evaluation of suicidal ideation & depression. Ld reports that she recently relapsed using cocaine, she has has multiple recent orthopedic surgeries after leg fracture and also recent pacemaker placed. Ld takes oxycodone & flexeril for pain. She feels hopeless and depressed secondary to her physical ailments. She cannot do what she used to do & is a burden on her family. I just feel so depressed & I need something to help me. She is A&Ox4. He is cooperative with admission process. She has been feeling suicidal and like she just wants to . Denies HI/AVH. Tox screen positive for polysubstance use. Ld refuses to answer questions about past trauma at this time. She just wants to lay down and get pain & depression taken care of. Skin check & change number operator completed & unremarkable. She is placed on 15 minute checks for safety. CV signed with Dr Putnam. Patient then signed a 3 Day Notice.
[2023-12-23 20:00] VITALS: BP 90/61; PULSE 79; TEMP 36.6
[2023-12-23] MEDS: Indomethacin 25 MG CAPSULE 50 MG PO (21:50)
[2023-12-23] MEDS: Divalproex Sodium 250 MG TABLET.DR 750 MG PO (21:52)
[2023-12-23] MEDS: traZODone HCL 50 MG TABLET 150 MG PO (21:52)
[2023-12-23] MEDS: methADONE HCl 20 MG/2 ML ORAL.CONC 10 MG PO (21:52)
[2023-12-24] MEDS: oxyCODONE HCl Immed Release 5 MG TABLET PO ×2 (05:50→13:25)
[2023-12-24 07:00] VITALS: BMI 13.5
[2023-12-24 08:16] VITALS: BP 124/62; PULSE 71; RESP 16; TEMP 36.7; O2SAT 97
[2023-12-24 08:31] LABS: Estimated Average Glucose 108 mg/dL; Hemoglobin A1c % 5.4 % (<6.0)
[2023-12-24 08:40] LABS: Cholesterol 153 mg/dL (<200); HDL Cholesterol 51 mg/dL (>40); LDL Cholesterol Calculated 54 mg/dL (<100); Triglycerides 241 mg/dL (<150)
[2023-12-24 08:59] VITALS: BP 104/62; PULSE 79
[2023-12-24] MEDS: Divalproex Sodium 500 MG TABLET.DR PO (08:59)
[2023-12-24] MEDS: Indomethacin 25 MG CAPSULE 50 MG PO ×2 (08:59→20:38)
[2023-12-24] MEDS: Metoprolol Succinate ER 25 MG TAB.ER.24H PO (08:59)
[2023-12-24] MEDS: levETIRAcetam 500 MG TABLET PO ×2 (08:59→20:39)
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
[2023-12-24] MEDS: methADONE HCl 20 MG/2 ML ORAL.CONC PO (13:25)
[2023-12-24] MEDS: Cyclobenzaprine HCl 10 MG TABLET PO (13:28)
[2023-12-24] MEDS: oxyCODONE HCl Immed Release 5 MG TABLET 10 MG PO ×2 (15:33→20:37)
[2023-12-24] MEDS: Divalproex Sodium 250 MG TABLET.DR 750 MG PO (20:35)
[2023-12-24] MEDS: methADONE HCl 20 MG/2 ML ORAL.CONC 10 MG PO (20:37)
[2023-12-24] MEDS: traZODone HCL 50 MG TABLET 150 MG PO (20:39)
[2023-12-25] MEDS: oxyCODONE HCl Immed Release 5 MG TABLET 10 MG PO ×4 (04:08→21:38)
[2023-12-25 08:00] VITALS: BP 106/64; PULSE 62; RESP 16; TEMP 36.3; O2SAT 93
[2023-12-25] MEDS: Divalproex Sodium 500 MG TABLET.DR PO (08:42)
[2023-12-25] MEDS: Indomethacin 25 MG CAPSULE 50 MG PO ×2 (08:42→21:37)
[2023-12-25] MEDS: levETIRAcetam 500 MG TABLET PO ×2 (08:42→21:38)
[2023-12-25] MEDS: Metoprolol Succinate ER 25 MG TAB.ER.24H PO (08:42)
[2023-12-25] MEDS: methADONE HCl 20 MG/2 ML ORAL.CONC PO (08:43)
[2023-12-25] MEDS: DULoxetine HCl 20 MG CAPSULE.DR PO (08:43)
[2023-12-25] MEDS: Fluticasone/Vilanterol 100/25 BLST.W.DEV 1 PUFF INHALE (08:44)
[2023-12-25] MEDS: Nicotine 14 MG PATCH.TD24 TRANSDERMA (10:09)
[2023-12-25] MEDS: OLANZapine 5 MG TABLET PO (12:32)
[2023-12-25] MEDS: hydrOXYzine HCL 25 MG TABLET PO (12:32)
[2023-12-25] MEDS: Cyclobenzaprine HCl 10 MG TABLET PO (12:32)
--- NOTE | 2023-12-25 17:39 | P.PNPSI_ITS ---
Subjective Subjective Date of Service: 12/25/23 Reason For Visit: depression/ si Subjective Notes: Conditional Voluntary and 3 Day Healthcare Proxy: No Guardianship: No Medical Problems Affecting Mental Status: Yes Interim History: TDN to 12/27. Pt requests to discharge early due to milieu activity with several stressors in consideration to her personal trauma history.The milieu she believes is exacerbating her symptoms. Reports Cymbalta to be tolerated. Reports no sx of mood destabilzation with first dose. Pt plans to live with her mother and return [facility]. Medication Compliance: Yes Side effects from medications: No Attending Groups: Intermittent Review of Systems Acute medical concerns: Yes Medical Review of Systems: unchanged Review of Systems Review of Systems Chronic pain Mental Status Exam Mental Status Exam Patient Appearance: Fatigued and Appropriate Patient Orientation: Person, Place, Time and Situation Level of Consciousness: Restless and Alert Patient Behavior: Appropriate, Talkative, Cooperative, Restless, Anxious, Fatigued, Distractible and Good Eye Contact Mood Description: Depressed, Anxious and Apprehensive Affect Description: Apprehensive Patient Cognition Impaired: No Ability to Follow Directions: Good Speech Pattern: Spontaneous Speech Memory Description: Intact Hallucinations: None Delusions: Not Present Perceptual Disturbances: Depersonalization and Derealization Thought Process: Distracted Thought Content: positive for Circumstantial, positive for Suicidal Ideation (denies) and positive for Homicidal Ideation (denies) Depressive Symptoms: Increased Anxiety, Increased Irritability (chronic pain), Unexplained Headaches (migraine) and Thoughts of /Suicide (denies) Abnormal Motor Activity Signs and Symptoms: Restlessness Judgement: Good Diagnostics Vital Signs (24Hr): Vital Signs - 24 hr 12/25/23 08:00 Temperature 97.4 F Pulse Rate 62 Respiratory Rate 16 Blood Pressure 106/64 Pulse Oximetry 93 Oxygen Delivery Method Room Air BMI result Body Mass Index 13.5 Labs 12/22/23 10:41 12/22/23 10:41 Labs: Laboratory Results - last 48 hr 12/24/23 12/24/23 08:12 08:13 Estimat Average Glucose 108 Hemoglobin A1c % 5.4 Triglycerides 241 H Cholesterol 153 LDL Cholesterol, Calc 54 HDL Cholesterol 51 Medications Medications Current Medications Acetaminophen (Acetaminophen 325 Mg Tablet) 650 mg PO Q6H PRN PRN Reason: Headache/Pain Mild Scale (1-3) Al Hydroxide/Mg Hydroxide (Magnesium Hydrox/Alum Hydrox 30 Ml Oral.Susp) 30 ml PO Q6H PRN PRN Reason: Heartburn/Nausea Cyclobenzaprine HCl (Cyclobenzaprine Hcl 10 Mg Tablet) 10 mg PO TID PRN PRN Reason: muscle spasm Last Admin: 12/25/23 12:32 Dose: 10 mg Divalproex Sodium (Divalproex Sodium 250 Mg Tablet.Dr) 750 mg PO BEDTIME [facility] Last Admin: 12/24/23 20:35 Dose: 750 mg Divalproex Sodium (Divalproex Sodium 500 Mg Tablet.Dr) 500 mg PO DAILY [facility] Last Admin: 12/25/23 08:42 Dose: 500 mg Duloxetine HCl (Duloxetine Hcl 20 Mg Capsule.Dr) 20 mg PO DAILY [facility] Last Admin: 12/25/23 08:43 Dose: 20 mg Fluticasone/Vilanterol (Fluticasone/Vilanterol 100/25 Blst.W.Dev) 1 puff INHALE RDAILY [facility] Last Admin: 12/25/23 08:44 Dose: 1 puff Hydroxyzine HCl (Hydroxyzine Hcl 25 Mg Tablet) 25 mg PO Q6H PRN PRN Reason: Anxiety Last Admin: 12/25/23 12:32 Dose: 25 mg Indomethacin (Indomethacin 25 Mg Capsule) 50 mg PO BID [facility] Last Admin: 12/25/23 08:42 Dose: 50 mg Levetiracetam (Levetiracetam 500 Mg Tablet) 500 mg PO BID [facility] Last Admin: 12/25/23 08:42 Dose: 500 mg Magnesium Hydroxide (Milk Of Magnesia 30 Ml Oral.Susp) 30 ml PO DAILY PRN PRN Reason: Constipation Methadone HCl (Methadone Hcl 20 Mg/2 Ml Oral.Conc) 10 mg PO BEDTIME [facility] Last Admin: 12/24/23 20:37 Dose: 10 mg Methadone HCl (Methadone Hcl 20 Mg/2 Ml Oral.Conc) 20 mg PO DAILY [facility] Last Admin: 12/25/23 08:43 Dose: 20 mg Metoprolol Succinate (Metoprolol Succinate Er 25 Mg Tab.Er.24h) 25 mg PO DAILY [facility]; Protocol Last Admin: 12/25/23 08:42 Dose: 25 mg Nicotine (Nicotine 14 Mg Patch.Td24) 14 mg TRANSDERMA DAILY [facility] Last Admin: 12/25/23 10:09 Dose: 14 mg Nicotine Polacrilex (Nicotine Polacrilex 2 Mg Gum) 4 mg BUCCAL Q2H PRN PRN Reason: Nicotine Cravings Olanzapine (Olanzapine 5 Mg Tablet) 5 mg PO TID PRN PRN Reason: agitation Last Admin: 12/25/23 12:32 Dose: 5 mg Ondansetron HCl (Ondansetron Odt 4 Mg Tab.Rapdis) 4 mg TRANSLINGU Q6H PRN PRN Reason: Nausea And Vomiting Oxycodone HCl (Oxycodone Hcl Immed Release 5 Mg Tablet) 10 mg PO Q6H [facility] Last Admin: 12/25/23 14:27 Dose: 10 mg Trazodone HCl (Trazodone Hcl 50 Mg Tablet) 150 mg PO BEDTIME [facility] Last Admin: 12/24/23 20:39 Dose: 150 mg Trazodone HCl (Trazodone Hcl 50 Mg Tablet) 50 mg PO BEDTIME MRX1 PRN PRN Reason: Insomnia Allergies Allergies Allergy/AdvReac Type Severity Reaction Status Date / Time amoxicillin [AMOXICILLIN] Allergy Intermediate RASH Verified 12/22/23 10:18 Penicillins [PENICILLINS] Allergy Intermediate RASH Verified 12/22/23 10:18 topiramate [From Topamax] AdvReac Unknown Unknown Verified 12/24/23 15:35 lamictal AdvReac Unknown Unknown Uncoded 12/24/23 15:35 Assessment & Plan Reason for continued inpatient stay Substantial Risk for: rapid decompensation Time Spent With Patient Time: Total time managing care of this patient today ____ minutes.
[2023-12-25 21:30] VITALS: BP 90/62; PULSE 62; RESP 16; TEMP 36.6; O2SAT 100
[2023-12-25] MEDS: methADONE HCl 20 MG/2 ML ORAL.CONC 10 MG PO (21:37)
[2023-12-25] MEDS: Divalproex Sodium 250 MG TABLET.DR 750 MG PO (21:37)
[2023-12-25] MEDS: traZODone HCL 50 MG TABLET 150 MG PO (21:38)
[2023-12-26 08:20] VITALS: BP 108/75; PULSE 69; RESP 16; TEMP 36.6; O2SAT 100
[2023-12-26] MEDS: levETIRAcetam 500 MG TABLET PO (08:23)
[2023-12-26] MEDS: oxyCODONE HCl Immed Release 5 MG TABLET 10 MG PO (08:23)
[2023-12-26] MEDS: Fluticasone/Vilanterol 100/25 BLST.W.DEV 1 PUFF INHALE (08:23)
[2023-12-26] MEDS: Indomethacin 25 MG CAPSULE 50 MG PO (08:24)
[2023-12-26] MEDS: DULoxetine HCl 20 MG CAPSULE.DR PO (08:24)
[2023-12-26] MEDS: Metoprolol Succinate ER 25 MG TAB.ER.24H PO (08:24)
[2023-12-26] MEDS: Divalproex Sodium 500 MG TABLET.DR PO (08:24)
[2023-12-26] MEDS: methADONE HCl 20 MG/2 ML ORAL.CONC PO (08:25)
--- NOTE | 2024-01-22 10:00 | P.DS_ITS ---
DS: Providers Provider Date of Service: 12/26/23 Date of admission: 12/23/23 15:28 Date of discharge: 12/26/23 Primary care physician: Magen Lantigua MD Admitting clinician: Yesenia Stone Attending physician on admission: Markell Atkins Attending physician on discharge: Markell Atkins Discharging clinician: Yesenia Stone DS: Diagnosis Discharge Diagnosis (1) PTSD (post-traumatic stress disorder): Status: Acute (2) Bipolar disorder with depression: Status: Acute (3) Opioid use disorder, moderate, in early remission, on maintenance therapy, dependence: Status: Acute (4) Cocaine use disorder: Status: Acute DS: Medications Discharge Medications Home Medications: Home Medications ?Medication ?Instructions ?Recorded ?Confirmed divalproex 250 mg tablet,delayed 750 mg PO BEDTIME 07/31/23 12/23/23 release divalproex 500 mg tablet,delayed 500 mg PO DAILY 07/31/23 12/23/23 release hydroxyzine HCl 25 mg tablet 25 mg PO BID PRN Anxiety 07/31/23 12/23/23 indomethacin 50 mg capsule 50 mg PO BID 07/31/23 12/23/23 mometasone-formoterol HFA 100 2 puff inhalation BID 07/31/23 12/23/23 mcg-5 mcg/actuation aerosol inhaler (Dulera) [id number] 250 2 tab PO Q6H PRN Migraine Headache 09/21/23 11/11/23 mg-250 mg-65 mg tablet (Excedrin Extra Strength) trazodone 150 mg tablet 150 mg PO BEDTIME 11/11/23 12/23/23 methadone 10 mg/mL oral 10 mg PO QPM 12/23/23 12/23/23 concentrate (Methadone Intensol) methadone 10 mg/mL oral 17 mg PO QAM 12/23/23 12/23/23 concentrate (Methadone Intensol) oxycodone 5 mg tablet 5 mg PO Q6H 12/23/23 12/23/23 Previous Rx's ?Medication ?Instructions ?Recorded nebulizer and compressor (PureAir #1 ea 04/09/21 Mini Nebulizer) levetiracetam 500 mg tablet 500 mg PO BID #1 tab 08/12/23 ondansetron 4 mg disintegrating 4 mg translingual Q6H PRN Nausea 08/12/23 tablet And Vomiting #1 tab Knee scooter #1 ea 09/03/23 cyclobenzaprine 10 mg tablet 10 mg PO TID PRN muscle spasm #10 11/09/23 tabs metoprolol succinate 25 mg 25 mg PO DAILY #30 tabs 11/12/23 tablet,extended release 24 hr (Toprol XL) duloxetine 20 mg capsule,delayed 20 mg PO DAILY #30 caps 12/26/23 release nicotine 14 mg/24 hr daily 14 mg transdermal DAILY #30 ea 12/26/23 transdermal patch Mental Status Exam Mental Status Exam Patient Appearance: Fatigued and Appropriate Patient Orientation: Person, Place, Time and Situation Level of Consciousness: Restless and Alert Patient Behavior: Appropriate, Talkative, Cooperative, Restless, Anxious, Fatigued, Distractible and Good Eye Contact Mood Description: Depressed, Anxious and Apprehensive Affect Description: Apprehensive Patient Cognition Impaired: No Ability to Follow Directions: Good Speech Pattern: Spontaneous Speech Memory Description: Intact Hallucinations: None Delusions: Not Present Perceptual Disturbances: Depersonalization and Derealization Thought Process: Distracted Thought Content: positive for Circumstantial, positive for Suicidal Ideation (denies) and positive for Homicidal Ideation (denies) Depressive Symptoms: Increased Anxiety, Increased Irritability (chronic pain), Unexplained Headaches (migraine) and Thoughts of /Suicide (denies) Abnormal Motor Activity Signs and Symptoms: Restlessness Judgement: Good DS: Summary Hospital Course Hospital Course: 49 yo female, history of bipolar disorder, currently depressed, PTSD, polysubstance use disorder (opiates, cocaine), admitted to adult psychiatry with a relapse after being sober for 18 months, with resulting depression with SI. Pt reports several stressors including recent of her , pace maker placement 4.5 weeks ago, epilepsy, chronic pain for over one year from OA, fracture of medical malleous, L fibula and R clavicle with very slow healing time she reports. Pt's medication regime was evaluated and adjusted. Low dose Cymbalta was initiated to assist with pain mgt. Education was provided about the potential for hakan-pt and mother verbalized understanding. Pt did not find the milieu supportive as it was very active during her admission. She plans to return to her mother's home (states she has an apartment in mother's home) and [facility] to [facility]. Mother was involved in her care on the unit and is available as a support. Pt denied SI/HI/AH/VH upon discharge and declined further milieu treatment. Status at Discharge Functional status at discharge: independent ambulation Overall status at discharge: patient is progressing back to baseline Time Spent with Patient Time attestation: Total time managing care of this patient today ____ minutes. Time spent: Less than 30 minutes Discharge Plan Discharge Anticipated Discharge Date/Time: 12/26/23 12:00 Patient Disposition: Home, Self-Care Discharge Diagnosis: Bipolar disorder, depressed PTSD Polysubstance use disorder-opiates, cocaine Referrals: [facility] Psych[facility] with Aaliyah [Other] - 02/05/24 9:30 am (I put a request for grief support, so talk with Aaliyah about this.) Magen Lantigua MD [Primary Care Provider] - 02/05/24 9:00 am Discharge Medications: New nicotine 14 mg/24 hr Patch 24 Hour 14 mg transdermal DAILY Qty: 30 0RF duloxetine 20 mg Capsule,Delayed Release(Dr/Ec) 20 mg PO DAILY Qty: 30 0RF Continued metoprolol succinate [Toprol XL] 25 mg tablet extended release 24 hr 25 mg PO DAILY Qty: 30 5RF (DME) nebulizer and compressor [PureAir Mini Nebulizer] Device See Rx Instructions .Route Qty: 1 0RF Rx Instructions: As directed cyclobenzaprine 10 mg tablet 10 mg PO TID PRN (Reason: muscle spasm) Qty: 10 0RF oxycodone 5 mg tablet 5 mg PO Q6H methadone [Methadone Intensol] 10 mg/mL Concentrate 17 mg PO QAM methadone [Methadone Intensol] 10 mg/mL Concentrate 10 mg PO QPM divalproex 250 mg tablet,delayed release (DR/EC) 750 mg PO BEDTIME divalproex 500 mg tablet,delayed release (DR/EC) 500 mg PO DAILY indomethacin 50 mg capsule 50 mg PO BID Dulera 100-5 mcg/actuation HFA aerosol inhaler 2 puff inhalation BID hydroxyzine HCl 25 mg tablet 25 mg PO BID PRN (Reason: Anxiety) levetiracetam 500 mg Tablet 500 mg PO BID Qty: 1 0RF ondansetron 4 mg Tablet,Disintegrating 4 mg translingual Q6H PRN (Reason: Nausea And Vomiting) Qty: 1 0RF Excedrin Extra Strength 250-250-65 mg Tablet 2 tab PO Q6H PRN (Reason: Migraine Headache) trazodone 150 mg tablet 150 mg PO BEDTIME (DME) Knee scooter See Rx Instructions .ROUTE .MEDSUPPLY Qty: 1 0RF Rx Instructions: As directed Discharge Orders: Discharge Order (Routine); Ordered 12/26/23 Ordered By: Yesenia Stone Diet: Advance to usual diet Activity on Discharge: As tolerated Stand Alone Forms: Patient Portal Discharge page, Community Support Print Language: Icelandic Care Plan Goals: Mood and Behavioral Stabilization Sobriety Health Concerns: Mood and Behavioral Stabilization Sobriety Plan of Treatment: Attend scheduled appointments Take medications as directed Assessment: Pt declines treatment as she finds current milieu too stimulating and triggering for her PTSD sx. Discharge Date/Time: 12/26/23 11:00
== END 2023-12-26 11:00 | disposition home or self-care (01) | DRG 885 ==
LOC: HO.ED 12-23 07:56 → HO.PM5 12-23 15:46
PROVIDERS: Admitting Provider Psychiatry & Neurology Psychiatry; Emergency Provider Emergency Medicine Emergency Medical Services; PCP Internal Medicine; Visit Provider Clinical Nurse Specialist Psychiatric/Mental Health, Adult
DX: F31.9 Bipolar disorder, unspecified (principal); R45.851 Suicidal ideations; F11.20 Opioid dependence, uncomplicated; F43.10 Post-traumatic stress disorder, unspecified; G43.909 Migraine, unspecified, not intractable, without status migrainosus; F14.10 Cocaine abuse, uncomplicated; G40.909 Epilepsy, unspecified, not intractable, without status epilepticus; G89.29 Other chronic pain; F19.10 Other psychoactive substance abuse, uncomplicated; F17.210 Nicotine dependence, cigarettes, uncomplicated; Z95.0 Presence of cardiac pacemaker; Z71.6 Tobacco abuse counseling; Z79.899 Other long term (current) drug therapy
CPT/HCPCS: 36415; 80053; 80061; 80307; 81001; 82550; 83036; 85025; 85652; 86140; 93005; 97161; 99285; J1200; J1885; J2765; S9485

== ENCOUNTER → 2023-12-22 10:28 | Outpatient (BNV) | payer OTHER, SELFPAY | PROVIDERS: Emergency Provider Emergency Medicine Emergency Medical Services; PCP Internal Medicine; Visit Provider Internal Medicine | DX: R94.31 Abnormal electrocardiogram [ECG] [EKG] (principal) | CPT/HCPCS: 93010 ==

== ENCOUNTER → 2023-12-23 15:28 | Outpatient (BNV) | payer OTHER, SELFPAY | PROVIDERS: Admitting Provider Psychiatry & Neurology Psychiatry; Emergency Provider Emergency Medicine Emergency Medical Services; PCP Internal Medicine; Visit Provider Clinical Nurse Specialist Psychiatric/Mental Health, Adult | DX: F31.4 Bipolar disorder, current episode depressed, severe, without psychotic features (principal); F14.10 Cocaine abuse, uncomplicated; F11.21 Opioid dependence, in remission; F43.11 Post-traumatic stress disorder, acute | CPT/HCPCS: 90792; 99232; 99238 ==

== ENCOUNTER → 2024-01-23 23:59 | Outpatient (BNV) | payer OTHER, SELFPAY ==
--- NOTE | 2024-01-27 14:37 | A.OFFVIS_ITS ---
Intake Visit Reasons: Remote Device ck -[facility] Allergies amoxicillin [AMOXICILLIN] Allergy (Intermediate, Verified 12/22/23 10:18) RASH Penicillins [PENICILLINS] Allergy (Intermediate, Verified 12/22/23 10:18) RASH topiramate [From Topamax] Adverse Reaction (Unknown, Verified 12/24/23 15:35) Unknown lamictal Adverse Reaction (Unknown, Uncoded 12/24/23 15:35) Unknown COUNTS INCLUDE 234 BEDS AT THE [facility] Medical History (Updated 01/03/24 @ 00:02 by Sherman Watson) Headache, migraine Cocaine use disorder Opioid use disorder, moderate, in early remission, on maintenance therapy, dependence Bipolar disorder with depression PTSD (post-traumatic stress disorder) Cardiac pacemaker in situ Opioid use disorder Seizure disorder Clavicle fracture Narcotic abuse Seizures Asthma COPD (chronic obstructive pulmonary disease) Surgical History History of ankle surgery (08/05/23) H/O right knee surgery H/O left knee surgery Social History Household Members: Family Household Members Other:: Mother, father, daughter Housing: House Do you presently have visiting nurse or other home services: Yes Alcohol intake: unknown Patient Tobacco Use Status: Refuse Tobacco use screen Tobacco use type: Cigarette e-Cigarette/Vaping Use: Currently Using Second Hand Smoke Exposure: No Substance Use Type: Crack/Cocaine and Heroin Advance Directives Date on File: 07/31/23 service: No Sexual orientation: Straight/Heterosexual Office Procedures Cardiac Device Check Cardiac Device Check Details: Remote pacemaker report generated 01/23/2024. Pacemaker function is adequate. Atrial pacing 21% of time. Multiple high ventricular rate episode noted, either sinus tachycardia or SVT. [id number] Cardiac Device Interrogation, pacemaker Procedure code (CPT) selection complete Assessment & Plan Assessment & Plan (1) Cardiac pacemaker in situ: Comment: [facility] Dual Chamber placed on 09/25/23 Code(s): Z95.0 - Presence of cardiac pacemaker Category: Medical Plan: See above Coding Level of Care Code Procedure Only Diagnoses Cardiac pacemaker in situ Z95.0 CPT Codes Cardiac Device Check - Cardiac Device 12: [id number] Cardiac Device Interroga tion, pacemaker ([id number])
== END ==
PROVIDERS: PCP Internal Medicine; Visit Provider Internal Medicine Cardiovascular Disease
DX: R00.0 Tachycardia, unspecified (principal); Z95.0 Presence of cardiac pacemaker
CPT/HCPCS: 93294

== ENCOUNTER 2024-02-12 10:16 | Outpatient (REF) | payer OTHER, SELFPAY ==
--- NOTE | ~2024-02-12 | XR_ITS ---
EXAMINATION: XR ANKLE, LEFT CLINICAL INFORMATION: Bilateral ankle pain. COMPARISON: 11/12/2023 TECHNIQUE: AP, lateral, and mortise views of the left ankle. FINDINGS: There is osteopenia. Status post ORIF with lateral plate and screw fixation of the distal fibula. There are 2 screws traversing the medial malleolus. No periprosthetic lucency or periprosthetic fracture. Alignment is unchanged. Faint calcification is again seen along the medial malleolus. Small posterior and plantar calcaneal spurs. XR/XR ankle LT min 3V IMPRESSION: Stable postsurgical changes. No acute abnormality.
== END 2024-02-12 10:17 | disposition home or self-care (01) ==
LOC: HO.XRAY 10:16
PROVIDERS: PCP Internal Medicine; Visit Provider Internal Medicine
DX: S93.402D Sprain of unspecified ligament of left ankle, subsequent encounter (principal)
CPT/HCPCS: 73610

== ENCOUNTER 2024-02-13 09:33 | Emergency (ER) | payer OTHER, SELFPAY ==
--- NOTE | ~2024-02-13 | XR_ITS ---
EXAMINATION: XR ANKLE, LEFT CLINICAL INFORMATION: Twisted ankle COMPARISON: Ankle radiographs 02/12/2024 11/12/2023 TECHNIQUE: AP, lateral, and mortise views of the left ankle. FINDINGS: Again seen are postsurgical changes of ORIF of the ankle with lateral plate and screw fixation of the distal fibula and medial malleolus surgical screws with disuse osteopenia. No evidence of hardware fracture or complication. Similar few foci of mineralization adjacent to the medial malleolus surgery with screws. Mild soft tissue swelling about the ankle. Moderate osteoarthritis of the ankle with bulky osteophytes. No acute fracture or dislocation. XR/XR ankle LT min 3V IMPRESSION: Again seen are postsurgical changes of ORIF of the ankle with lateral plate and screw fixation of the distal fibula and medial malleolus surgical screws with disuse osteopenia. No evidence of hardware fracture or complication.
[2024-02-13 09:37] VITALS: BP 120/78; PULSE 93; RESP 18; TEMP 36.9; O2SAT 94; BMI 24.3
[2024-02-13 10:04] LABS: MANUAL DIFF FLAG NO
[2024-02-13 10:07] LABS: Basophils Percent Auto 0.3 % (0-2); Eosinophils Absolute Auto 0.1 X10*3/uL (0.0-0.4); Eosinophils Percent Auto 2.4 % (0-4); Hematocrit 37.6 % (37.0-47.0); Hemoglobin 12.6 g/dl (12.0-16.0); Lymphocytes Absolute Auto 1.5 X10*3/uL (1.2-4.9); Lymphocytes Percent Auto 50.3 % (20-40); Mean Corpuscular HGB Conc 33.5 g/dl (31.0-35.0); Mean Corpuscular Hemoglobin 29.6 pg (27.0-33.0); Mean Corpuscular Volume 88.3 fL (80.0-98.0); Mean Platelet Volume 9.5 fL (9.4-12.3); Monocytes Absolute Auto 0.3 X10*3/uL (0.1-1.2); Monocytes Percent Auto 11.1 % (2-11); Neutrophils Percent Auto 35.9 % (45-73); Platelet Count 166 X10*3/uL (160-400); Red Blood Count 4.26 X10*6/uL (4.20-5.50); Red Cell Distribution Width 15.5 % (11.0-16.0); White Blood Count 2.9 X10*3/uL (4.8-10.8)
--- NOTE | 2024-02-13 10:13 | PC.NURSE ---
labs obtained/sent to lab. pt being taken to xray at this time.
[2024-02-13 10:24] LABS: Alanine Aminotransferase 15 U/L (0-31); Albumin Level 3.5 g/dL (3.5-5.0); Alkaline Phosphatase 51 U/L (39-117); Anion Gap 11 (12-20); Aspartate Amino Transferase 15 U/L (5-31); Bilirubin Total 0.3 mg/dL (0.0-1.0); Blood Urea Nitrogen 5 mg/dL (9-16); C Reactive Protein < 0.10 mg/dL (< or = 0.50); Calcium 9.3 mg/dL (8.4-10.2); Carbon Dioxide 30 mmol/L (22-29); Chloride 105 mmol/L (96-108); Creatinine Clr Calc Pharmacy 107.5; Estimated Glomerular Filt Rate > 60; Glucose Random 107 mg/dL (60-115); Potassium 3.8 mmol/L (3.3-5.1); Sodium 142 mmol/L (135-145); Total Protein 5.6 g/dL (6.5-8.0)
--- NOTE | 2024-02-13 10:39 | ED_ITS ---
HPI - Extremity Injury (Lower) General Chief Complaint: Extremity Injury, Lower Stated Complaint: l foot inj Time Seen by Provider: 02/13/24 10:31 Source: patient Mode of arrival: ambulatory Limitations: no limitations History of Present Illness ED Provider: Ava DRAPER HPI Narrative: This is a 49-year-old female presenting with left foot pain status post slip and fall and eversion injury, patient reports she stepped onto a pool cement step, stepped wrong, slid, twisting her left ankle. Since then has been having pain, swelling. Worse with movement better at rest. Reports intermittent tingling. No numbness. No head strike or loss of consciousness. Not on blood thinners. She does report she had surgery on this ankle about 6-7 months ago. Denies fevers, chills, chest pain, shortness of breath, nausea, vomiting, headache, vision changes, dizziness and weakness. Related Data Home Medications ?Medication ?Instructions ?Recorded ?Confirmed divalproex 250 mg tablet,delayed 750 mg PO BEDTIME 07/31/23 12/23/23 release divalproex 500 mg tablet,delayed 500 mg PO DAILY 07/31/23 12/23/23 release hydroxyzine HCl 25 mg tablet 25 mg PO BID PRN Anxiety 07/31/23 12/23/23 indomethacin 50 mg capsule 50 mg PO BID 07/31/23 12/23/23 mometasone-formoterol HFA 100 2 puff inhalation BID 07/31/23 12/23/23 mcg-5 mcg/actuation aerosol inhaler (Dulera) aqudfnz-wakrzdmuzbiws-fnnzgtyz 250 2 tab PO Q6H PRN Migraine Headache 09/21/23 11/11/23 mg-250 mg-65 mg tablet (Excedrin Extra Strength) trazodone 150 mg tablet 150 mg PO BEDTIME 11/11/23 12/23/23 methadone 10 mg/mL oral 10 mg PO QPM 12/23/23 12/23/23 concentrate (Methadone Intensol) methadone 10 mg/mL oral 17 mg PO QAM 12/23/23 12/23/23 concentrate (Methadone Intensol) oxycodone 5 mg tablet 5 mg PO Q6H 12/23/23 12/23/23 Previous Rx's ?Medication ?Instructions ?Recorded nebulizer and compressor (PureAir #1 ea 04/09/21 Mini Nebulizer) levetiracetam 500 mg tablet 500 mg PO BID #1 tab 08/12/23 ondansetron 4 mg disintegrating 4 mg translingual Q6H PRN Nausea 08/12/23 tablet And Vomiting #1 tab Knee scooter #1 ea 09/03/23 cyclobenzaprine 10 mg tablet 10 mg PO TID PRN muscle spasm #10 11/09/23 tabs metoprolol succinate 25 mg 25 mg PO DAILY #30 tabs 11/12/23 tablet,extended release 24 hr (Toprol XL) duloxetine 20 mg capsule,delayed 20 mg PO DAILY #30 caps 12/26/23 release nicotine 14 mg/24 hr daily 14 mg transdermal DAILY #30 ea 12/26/23 transdermal patch ketorolac 10 mg tablet 10 mg PO TID PRN pain 5 days #15 02/13/24 tabs Allergies Allergy/AdvReac Type Severity Reaction Status Date / Time amoxicillin [AMOXICILLIN] Allergy Intermediate RASH Verified 02/13/24 09:38 Penicillins [PENICILLINS] Allergy Intermediate RASH Verified 02/13/24 09:38 topiramate [From Topamax] AdvReac Unknown Unknown Verified 02/13/24 09:38 lamictal AdvReac Unknown Unknown Uncoded 12/24/23 15:35 Review of Systems 2 Review of Systems: Yes all other systems are reviewed and are negative PMFSH Past Medical History Attestation statement: The following information was validated with the patient. Source: old records reviewed and nursing notes reviewed Medical History (Updated 02/13/24 @ 10:38 by LANIE Yanez) Headache, migraine Cocaine use disorder Opioid use disorder, moderate, in early remission, on maintenance therapy, dependence Bipolar disorder with depression PTSD (post-traumatic stress disorder) Cardiac pacemaker in situ Opioid use disorder Seizure disorder Clavicle fracture Narcotic abuse Seizures Asthma COPD (chronic obstructive pulmonary disease) Surgical History History of ankle surgery (08/05/23) H/O right knee surgery H/O left knee surgery Social History Social History Household Members: Family Household Members Other:: Mother, father, daughter Housing: House Do you presently have visiting nurse or other home services: Yes Alcohol intake: unknown Patient Tobacco Use Status: Refuse Tobacco use screen Tobacco use type: Cigarette e-Cigarette/Vaping Use: Currently Using Second Hand Smoke Exposure: No Substance Use Type: Crack/Cocaine and Heroin Advance Directives: Yes Advance Directives on File: Yes Advance Directives Date on File: 07/31/23 Do you have a plan to hurt others: No Plan service: No Sexual orientation: Straight/Heterosexual Physical Exam 2 Vital Signs: Vital Signs: Last Vital Signs Temp 98.4 F 02/13/24 09:37 Pulse 93 02/13/24 09:37 Resp 18 02/13/24 09:37 BP 120/78 02/13/24 09:37 Pulse Ox 94 02/13/24 09:37 O2 Del Method Room Air 02/13/24 09:37 BMI result Body Mass Index 24.3 vss Appearance: Alert.? Oriented X3.? No acute distress.? Head: Normocephalic, atraumatic, no step-offs or deformities Eyes: Pupils equal, round and reactive to light.? ENT: Pharynx normal.? Neck: Normal inspection.? Neck supple.? CVS: Normal heart rate and rhythm.? Pulses normal.? Respiratory: No respiratory distress.? Breath sounds normal.? Abdomen: Soft and nontender.? Skin: Skin warm and dry.? Normal skin color.? Normal skin turgor.? Extremities: No lower extremity edema.? No calf ttp. 5/5 strength to bilateral upper and lower extremities + 2+ DP,AT,PT pulses equal and b/l. No foot drop b/l. Cap refil < 2 seconds b/l LE. + TTP to L 4-5th metatarsal w/ eccymosis ot the lateral aspect of L foot. Slightly uncomfortable ROM to L foot/ ankle. Normal right foot Neuro: Oriented X 3.? No motor deficit.? No sensory deficit. CN 2-12 intact Course Reevaluation(s) Reevaluation #1: CBC unremarkable. Chemistry no acute findings needing intervention. CRP normal. Left ankle again seen are postsurgical changes of ORIF of the ankle with lateral plate and screw fixation of distal fibula medial malleolus surgical screws with diffuse osteopenia. No evidence of hardware fracture or complication. Patient feeling better. Will give her crutches. Will also give her a Aircast. Will have her follow-up with the orthopedic team within a week. Will send her home with Toradol for pain control. Educated patient on diagnosis and treatment plan, answered all question, patient verbalizes understanding. At this time patient will be discharged home, advised to return with new or worsening symptoms. Educated on worrisome signs and symptoms and when to return. At this time I feel comfortable discharge home. Time: 11:52 Medications Administered Discontinued Medications Generic Name Dose Route Start Last Admin Trade Name Job PRN Reason Stop Dose Admin Ketorolac Tromethamine 30 mg 02/13/24 10:38 02/13/24 10:41 Ketorolac Tromethamine 30 Mg/Ml Vial IM 02/13/24 10:39 30 mg ONCE ONE Administration Medical Decision Making Medical Decision Making [facility] Narrative: 49-year-old female presents with left foot/ankle pain status post slip and fall into a pool. No head strike or loss of consciousness Physical exam + 2+ DP,AT,PT pulses equal and b/l. No foot drop b/l. Cap refil < 2 seconds b/l LE. + TTP to L 4-5th metatarsal w/ eccymosis ot the lateral aspect of L foot. Slightly uncomfortable ROM to L foot/ ankle. Normal right foot History and physical exam concerning for sprain or strain of foot/ankle. Unlikely fracture, dislocation, neurovascular compromise or acute threat to limb. No signs of arterial or venous occlusion. I do not suspect trauma head, neck, chest, abdomen or pelvis. Plan imaging, pain control. Differential Diagnosis Differential Diagnoses: The differential diagnosis associated with the presentation includes History and physical exam concerning for sprain or strain of foot/ankle. Unlikely fracture, dislocation, neurovascular compromise or acute threat to limb. No signs of arterial or venous occlusion. I do not suspect trauma head, neck, chest, abdomen or pelvis. Admission/Observation Consideration of admission/observation: Escalation of care including admission/observation considered [facility] Lab Data [facility] Lab Attestation statement: I reviewed the patient's lab results. 02/13/24 10:00 02/13/24 10:00 Labs: Lab Results 02/13/24 Range/Units 10:00 WBC 2.9 L (4.8-10.8) X10*3/uL RBC 4.26 (4.20-5.50) X10*6/uL Hgb 12.6 (12.0-16.0) g/dl Hct 37.6 (37.0-47.0) % MCV 88.3 (80.0-98.0) fL MCH 29.6 (27.0-33.0) pg MCHC 33.5 (31.0-35.0) g/dl RDW 15.5 (11.0-16.0) % Plt Count 166 (160-400) X10*3/uL MPV 9.5 (9.4-12.3) fL Immature Gran % (Auto) 0.0 (0.0-0.4) % Neut % (Auto) 35.9 L (45-73) % Lymph % (Auto) 50.3 H (20-40) % [place] % (Auto) 11.1 H (2-11) % Eos % (Auto) 2.4 (0-4) % Baso % (Auto) 0.3 (0-2) % Lymph # (Auto) 1.5 (1.2-4.9) X10*3/uL [place] # (Auto) 0.3 (0.1-1.2) X10*3/uL Eos # (Auto) 0.1 (0.0-0.4) X10*3/uL Baso # (Auto) 0.0 (0.0-0.2) X10*3/uL Abs Immat Gran (auto) 0.00 (0.00-0.03) X10*3/uL Absolute Neuts (auto) 1.0 L (2.0-8.3) x10*3/uL Absolute Nucleated RBC 0.000 (0.0-0.012) X10*3/uL Nucleated RBC % (auto) 0.0 (0.0-0.2) /100WBC ESR 3 (0-20) MM/HR Sodium 142 (135-145) mmol/L Potassium 3.8 (3.3-5.1) mmol/L Chloride 105 (96-108) mmol/L Carbon Dioxide 30 H (22-29) mmol/L Anion Gap 11 L (12-20) BUN 5 L (9-16) mg/dL Creatinine 0.73 (0.5-1.4) mg/dL Estim Creat Clear Calc 107.5 Estimated GFR > 60 Random Glucose 107 (60-115) mg/dL Calcium 9.3 D (8.4-10.2) mg/dL Total Bilirubin 0.3 (0.0-1.0) mg/dL AST 15 (5-31) U/L ALT 15 (0-31) U/L Alkaline Phosphatase 51 (39-117) U/L C-Reactive Protein < 0.10 (< or = 0.50) mg/dL Total Protein 5.6 L (6.5-8.0) g/dL Albumin 3.5 (3.5-5.0) g/dL Independent Interpretation I performed an independent interpretation of an: Plain X-Ray (XR/XR ankle LT min 3V IMPRESSION: Again seen are postsurgical changes of ORIF of the ankle with lateral plate and screw fixation of the distal fibula and medial malleolus surgical screws with disuse osteopenia. No evidence of hardware fracture or complication. ) Radiology Impression Discussion of test interpretation with radiology: I have reviewed the radiologist's reading. Prescription Management I considered prescription management with: Pain Medication (toradol ) Discharge Plan Discharge Clinical Impression: Acute pain of left foot, Acute left ankle pain Patient Disposition: Home, Self-Care Instructions: Arthralgia (ED) Additional Instructions: Take your medications as prescribed. If you were prescribed antibiotics today, it is important that you take your medication to their entirety, do not skip any doses, do not finish them early. Follow-up with your primary care provider this week. Return to the emergency department with new or worsening symptoms. Such as fevers, chills, chest pain, shortness of breath, nausea, vomiting, dizziness, headache, vision changes, lethargy In case of emergency call 911 Toradol has been sent to your pharmacy, you tolerated this well in the department. Please take this as prescribed do not take this with ibuprofen, or other NSAIDs, do not mix this with alcohol. Side effects of this medication including increased risk for bleeding and possible kidney injury. Please follow-up with the orthopedic team within a week Prescriptions: New ketorolac 10 mg tablet 10 mg PO TID PRN (Reason: pain) 5 Days Qty: 15 0RF No Action metoprolol succinate [Toprol XL] 25 mg tablet extended release 24 hr 25 mg PO DAILY Qty: 30 5RF (DME) nebulizer and compressor [PureAir Mini Nebulizer] Device See Rx Instructions .Route Qty: 1 0RF Rx Instructions: As directed cyclobenzaprine 10 mg tablet 10 mg PO TID PRN (Reason: muscle spasm) Qty: 10 0RF oxycodone 5 mg tablet 5 mg PO Q6H methadone [Methadone Intensol] 10 mg/mL Concentrate 17 mg PO QAM methadone [Methadone Intensol] 10 mg/mL Concentrate 10 mg PO QPM nicotine 14 mg/24 hr Patch 24 Hour 14 mg transdermal DAILY Qty: 30 0RF duloxetine 20 mg Capsule,Delayed Release(Dr/Ec) 20 mg PO DAILY Qty: 30 0RF divalproex 250 mg tablet,delayed release (DR/EC) 750 mg PO BEDTIME divalproex 500 mg tablet,delayed release (DR/EC) 500 mg PO DAILY indomethacin 50 mg capsule 50 mg PO BID Dulera 100-5 mcg/actuation HFA aerosol inhaler 2 puff inhalation BID hydroxyzine HCl 25 mg tablet 25 mg PO BID PRN (Reason: Anxiety) levetiracetam 500 mg Tablet 500 mg PO BID Qty: 1 0RF ondansetron 4 mg Tablet,Disintegrating 4 mg translingual Q6H PRN (Reason: Nausea And Vomiting) Qty: 1 0RF Excedrin Extra Strength 250-250-65 mg Tablet 2 tab PO Q6H PRN (Reason: Migraine Headache) trazodone 150 mg tablet 150 mg PO BEDTIME (DME) Knee scooter See Rx Instructions .ROUTE .MEDSUPPLY Qty: 1 0RF Rx Instructions: As directed Referrals: [facility] [place] [facility] [Provider Group] - 2 days Stand Alone Forms: Work/School Release Print Language: Emirati
[2024-02-13] MEDS: Ketorolac Tromethamine 30 MG/ML VIAL IM (10:41)
--- NOTE | 2024-02-13 10:43 | PC.NURSE ---
medication administered per provider order. effectiveness pending.
[2024-02-13 11:01] LABS: Erythrocyte Sedimentation Rate 3 MM/HR (0-20)
[2024-02-13 12:01] VITALS: BP 120/78; PULSE 93; RESP 18; TEMP 36.9; O2SAT 94
--- NOTE | 2024-02-13 12:02 | PC.NURSE ---
pt refused crutches - states she wants to ambulate w/ wheelchair.
== END 2024-02-13 12:02 | disposition home or self-care (01) ==
PROVIDERS: Emergency Provider Emergency Medicine; PCP Internal Medicine
DX: M79.672 Pain in left foot (principal); M25.572 Pain in left ankle and joints of left foot
CPT/HCPCS: 36415; 73610; 80053; 85025; 85652; 86140; 96372; 99283; 99284; J1885

== ENCOUNTER → 2024-04-26 23:59 | Outpatient (BNV) | payer OTHER, SELFPAY ==
--- NOTE | 2024-05-16 17:33 | MHC.OFFVIS ---
Intake Visit Reasons: Remote device check- [facility] Allergies amoxicillin [AMOXICILLIN] Allergy (Intermediate, Verified 05/12/24 15:41) RASH Penicillins [PENICILLINS] Allergy (Intermediate, Verified 05/12/24 15:41) RASH topiramate [From Topamax] Adverse Reaction (Unknown, Verified 05/12/24 15:41) Unknown lamictal Adverse Reaction (Unknown, Uncoded 05/12/24 15:37) Unknown [facility] Medical History Headache, migraine Cocaine use disorder Opioid use disorder, moderate, in early remission, on maintenance therapy, dependence Bipolar disorder with depression PTSD (post-traumatic stress disorder) Cardiac pacemaker in situ Opioid use disorder Seizure disorder Clavicle fracture Narcotic abuse Seizures Asthma COPD (chronic obstructive pulmonary disease) Surgical History History of ankle surgery (08/05/23) H/O right knee surgery H/O left knee surgery Social History Household Members: Family Household Members Other:: Mother, father, daughter Housing: House Do you presently have visiting nurse or other home services: Yes Alcohol intake: never Patient Tobacco Use Status: Refuse Tobacco use screen Tobacco use type: Cigarette Smoked in Last 30 Days: No e-Cigarette/Vaping Use: Currently Using Second Hand Smoke Exposure: No Use of substances other than those prescribed or required for medical reasons: Yes Substance Use Type: Crack/Cocaine Substance Use Frequency: Chronic Longstanding Advance Directives: Yes Advance Directives on File: Yes Advance Directives Date on File: 07/31/23 Patient : No service: No Sexual orientation: Straight/Heterosexual Office Procedures Cardiac Device Check Cardiac Device Check Details: Remote pacemaker report generated 04/26/2024. Pacemaker function is adequate [id number] Cardiac Device Interrogation, pacemaker Procedure code (CPT) selection complete Assessment & Plan Assessment & Plan (1) Cardiac pacemaker in situ: Comment: [facility] Dual Chamber placed on 09/25/23 Code(s): Z95.0 - Presence of cardiac pacemaker Category: Medical Plan: See above Coding Level of Care Code Procedure Only Diagnoses Cardiac pacemaker in situ Z95.0 CPT Codes Cardiac Device Check - Cardiac Device 12: [id number] Cardiac Device Interrogation, pacemaker ([id number])
== END ==
PROVIDERS: PCP Internal Medicine; Visit Provider Internal Medicine Cardiovascular Disease
DX: Z45.018 Encounter for adjustment and management of other part of cardiac pacemaker (principal)
CPT/HCPCS: 93294

== ENCOUNTER 2024-05-03 15:06 | Emergency (ER) | payer OTHER, SELFPAY ==
--- NOTE | ~2024-05-03 | XR_ITS ---
EXAMINATION: XR CHEST CLINICAL INFORMATION: Fever. COMPARISON: November 09, 2023 TECHNIQUE: Frontal view of the chest was obtained. FINDINGS: The cardiomediastinal silhouette is within normal limits and stable. Pacer leads are again seen in place. There is no focal lung consolidation or pleural effusions. The bony structures and the soft tissues are unremarkable. XR/XR chest 1V IMPRESSION: No acute cardiopulmonary process. Electronically signed by: Tian Kennedy MD 05/04/2024 02:38 AM EDT
[2024-05-03 15:33] VITALS: BP 112/65; PULSE 68; RESP 16; TEMP 36.4; O2SAT 99; BMI 24.3
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
--- NOTE | 2024-05-03 17:02 | PC.NURSE ---
Deirdre Wilson, SINGE WINDER in to speak with pt. about SA kit. Pt. cannot stay awake for conversation, endorses using cocaine this morning and cocaine only. Per SINGE WINDER, she will re-attempt to speak with pt. about SA kit after pt. has bloodwork, eats, and wakes up some more.
--- NOTE | 2024-05-03 17:26 | PC.NURSE ---
Pt. screaming at the top of her lungs. This RN entered room. tissue technologist attempting to draw blood, pt. calling tissue technologist a fucking bitch stating that she does not want the bloodwork done. Ludy Wilson NP into pt.'s room. MANAGER ENERGY explaining to pt. that without bloodwork, we won't be able to administer prophylactic HIV drugs to her. Pt. verbalizes understanding and stating that she wants to leave.
--- NOTE | 2024-05-03 17:26 | MHC.EDTECH ---
patient refusing labs at this time.Will attempt to redraw when patient has eaten.
--- NOTE | 2024-05-03 17:56 | PC.NURSE ---
Juana Durham ([facility] [place] - [phone]
--- NOTE | 2024-05-03 19:13 | MHC.EDTECH ---
Attempted to take vitals on patient and patient refused vitals @ 1910 RN aware
--- NOTE | 2024-05-03 19:13 | PC.NURSE ---
pt refuses vital signs at this time. Abdias CARDIOPULMONARY SUPERVISOR aware
[2024-05-03 19:59] LABS: UPreg QC Valid YES; Urine Pregnancy NEGATIVE (NEGATIVE)
--- NOTE | 2024-05-03 20:01 | PC.NURSE ---
pt ambulatory with steady gait to bathroom, urine sample obtained.
[2024-05-03 20:07] LABS: Amphetamine Screen Urine Not Detected (Not Detect); Barbiturates, Urine Not Detected (Not Detect); Benzodiazepines Screen Urine Not Detected (Not Detect); Buprenorphine Scr Not Detected (Not Detect); Cannabinoid Screen Urine Not Detected (Not Detect); Cocaine Screen Urine POSITIVE (Not Detect); Fentanyl, urine POSITIVE (Not Detect); Methadone Screen, Urine Not Detected (Not Detect); Opiate Screen Urine Not Detected (Not Detect); Oxycodone Screen Urine Not Detected (Not Detect); Phencyclidine Screen Urine Not Detected (Not Detect)
--- NOTE | 2024-05-03 20:35 | PC.NURSE ---
per pippa professor of music, plan to reevaluate pt when pt is more alert to determine plan of care
--- NOTE | 2024-05-03 21:15 | PC.NURSE ---
this rn attempted to speak with pt, pt refusing to state why she is at the hospital at this time. pt states the only thing she can do at this time is sleep , pt said she cant go anywhere because it is is 6am, pt reassured that it is 9pm. pt states she does not want any lab work done and for this RN to help her unless it is to sleep. Abdias CLERK ENTRY LEVEL aware. pt placed blanket back over head and appears to be sleeping again. pt states her mother will provide transportation home, per Abdias CLERK ENTRY LEVEL, mother will not provide transportation home.
[2024-05-03 22:07] VITALS: BP 97/61; PULSE 77; RESP 12; TEMP 37.8; O2SAT 94
--- NOTE | 2024-05-04 00:05 | PC.NURSE ---
this RN at bedside with pt to ask pt about plan of care, at this time, pt states she is going to refuse labs but would like to speak to care team, pt refusing to state what she would like to speak to care team about. pt asked if she would still like to receive SANE kit but pt reports she will not stay awake to complete the kit. pt continued to state she is sleeping and covering blanket with head. Abdias NEEDLE VALVE OPERATOR aware.
--- NOTE | 2024-05-04 00:10 | PC.NURSE ---
pt states she is unable to ambulate, states she cant walk and uses wheelchairs at home.
--- NOTE | 2024-05-04 00:15 | PC.NURSE ---
pt states she would like to be discharged, pt states she called her mother to provide transportation. per Abdias MANAGER MED SURG, await to discharge pt until her mother arrives at bedside.
[2024-05-04 00:54] VITALS: BP 133/70; PULSE 70; RESP 19; TEMP 39.1; O2SAT 97
--- NOTE | 2024-05-04 00:57 | PC.NURSE ---
pt noted to be febrile at this time, Abdias HARDENING MACHINE OPERATOR aware.
[2024-05-04] MEDS: Acetaminophen 325 MG TABLET 975 MG PO (01:05)
[2024-05-04 01:23] LABS: Appearance Urine Clear; Color Urine Yellow; Glucose Urine UA Negative (Negative); Leukocyte Esterase Urine Moderate (2+) (Negative); Nitrite Urine Negative (Negative); PH 7.5 (5.0-9.0); UMIC TRIGGER UACC YES; Urine Blood Negative (Negative); Urine Ketones 15 mg/dL (Negative); Urine Protein Negative (Neg-Trace)
--- NOTE | 2024-05-04 01:30 | PC.NURSE ---
pt agreeable to lab work at this time, pt brought into room, changed into hospital gown. Ultrasound guided IV placed in right bacillic vein. 20G. labs obtained and sent.
[2024-05-04 01:34] LABS: Basophils Percent Auto 0.3 % (0-2); PLT CLUMP 1; SCAN SMEAR FLAG 1
[2024-05-04 01:36] LABS: Eosinophils Percent Auto 0.3 % (0-4); Hematocrit 40.5 % (37.0-47.0); Hemoglobin 13.6 g/dl (12.0-16.0); Imm Gran Abs Auto 0.02 X10*3/uL (0.00-0.03); Imm Gran Pct Auto 0.2 % (0.0-0.4); Lymphocytes Percent Auto 11.6 % (20-40); MANUAL DIFF FLAG SCAN; Mean Corpuscular HGB Conc 33.6 g/dl (31.0-35.0); Mean Corpuscular Hemoglobin 28.2 pg (27.0-33.0); Mean Platelet Volume 10.6 fL (9.4-12.3); Monocytes Absolute Auto 0.7 X10*3/uL (0.1-1.2); Monocytes Percent Auto 7.9 % (2-11); Neutrophils Absolute Auto 7.1 x10*3/uL (2.0-8.3); Neutrophils Percent Auto 79.7 % (45-73); Red Blood Count 4.82 X10*6/uL (4.20-5.50); Red Cell Distribution Width 15.4 % (11.0-16.0)
[2024-05-04 01:38] LABS: Platelet Count 90 X10*3/uL (160-400); White Blood Count 8.9 X10*3/uL (4.8-10.8)
[2024-05-04 01:39] LABS: Bacteria Urine 4+ (None Seen); Hyaline Casts Urine 0-2 /LPF (0-2); RBC Urine 0-2 /HPF (0-2); Squamous Epithelial Cell Urine 0-2 /HPF (0-2); UACC Culture Trigger YES; WBC Urine 21-50 /HPF (0-5)
[2024-05-04 01:54] LABS: Alanine Aminotransferase 11 U/L (0-31); Albumin Level 3.8 g/dL (3.5-5.0); Alkaline Phosphatase 61 U/L (39-117); Anion Gap 12 (12-20); Aspartate Amino Transferase 18 U/L (5-31); Bilirubin Total 0.5 mg/dL (0.0-1.0); Blood Urea Nitrogen 15 mg/dL (9-16); Calcium 9.9 mg/dL (8.4-10.2); Carbon Dioxide 28 mmol/L (22-29); Chloride 105 mmol/L (96-108); Creatinine Clr Calc Pharmacy 81.7; Estimated Glomerular Filt Rate > 60; Ethanol < 10 mg/dL; Glucose Random 95 mg/dL (60-115); HCG Quantitative < 2 mIU/mL; Potassium 4.2 mmol/L (3.3-5.1); Sodium 141 mmol/L (135-145); Total Protein 6.2 g/dL (6.5-8.0)
[2024-05-04 02:11] LABS: Influenza A PCR NEGATIVE (Negative); Influenza B PCR NEGATIVE (Negative); Resp Syncy Virus RNA Qual PCR NEGATIVE (Negative); SARS COV2 PCR INHOUSE NEGATIVE (Negative)
[2024-05-04] MEDS: cefTRIAXone sodium 1 GM VIAL IVPUSH (02:19)
[2024-05-04 02:21] VITALS: BP 103/67; PULSE 60; RESP 17; TEMP 37.4; O2SAT 98
[2024-05-04 02:26] LABS: SLIDE REVIEW VERIFIED
--- NOTE | 2024-05-04 02:48 | PC.NURSE ---
pt requesting to speak to care team, consult ordered. due to pt initially requesting SANE kit, pt belongings placed in paper bag and into a belongings bag if needed for SANE kit, (see previous nurses notes), per sleeve maker Karen and placed onto shelf 3.
[2024-05-04 06:20] VITALS: BP 113/62; PULSE 71; RESP 15; TEMP 36.9; O2SAT 96
--- NOTE | 2024-05-04 06:49 | PC.NURSE ---
pt appears to be sleeping, respiration even and unlabored.
--- NOTE | 2024-05-04 07:16 | PC.NURSE ---
Care of Pt assumed at change of shift. Pt is currently resting comfortably with eyes closed. Breakfast tray available for Pt when she wakes. NAD noted at this time.
[2024-05-04 07:36] VITALS: BP 117/72; PULSE 58; RESP 14; TEMP 36.4; O2SAT 99
[2024-05-04] MEDS: cefuroxime axetiL 500 MG TABLET PO (09:49)
[2024-05-04] MEDS: Naloxone HCl Nasal TAKE HOME 4 MG SPRAY 8 MG NOSTRILALT (09:51)
[2024-05-04 09:55] LABS: Syphilis Screen Nonreactive (Nonreactive)
[2024-05-04 10:04] LABS: HBS Num1 4.63 mIU/mL (0-7.99); HBsAGNum1 0.32 S/CO (0.00-0.99); HIV AB/AG Nonreactive (Nonreactive); HIV Num 1 0.04 S/CO (0.00-0.99); Hepatitis B Surface Antigen Negative (Negative); ~HepC Num1 0.11 S/CO (0.00-0.79); ~Hepatitis B Surface Antibody NONREACTIVE (Nonreactive); ~Hepatitis C Antibody Nonreactive (Nonreactive)
--- NOTE | 2024-05-04 10:07 | MHC.CARE ---
Patient's mother arrived. This data analyst report writer attempted to assess patient several times. Once patient's mother arrived to pick her up, patient deemed safe to d/c without CARE team assessment. 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
[2024-05-04 10:10] VITALS: BP 117/72; PULSE 58; RESP 14; TEMP 36.4; O2SAT 99
[2024-05-04 12:16] LABS: CT PCR NOT DETECTED (Not Detect.); NG PCR NOT DETECTED (Not Detect.)
== END 2024-05-04 10:11 | disposition home or self-care (01) ==
PROVIDERS: Nurse Practitioner Family; Physician Assistant Medical; Emergency Provider Emergency Medicine Emergency Medical Services; PCP Internal Medicine
DX: T76.21XA Adult sexual abuse, suspected, initial encounter (principal); X58.XXXA Exposure to other specified factors, initial encounter; N39.0 Urinary tract infection, site not specified; R10.2 Pelvic and perineal pain; Z03.818 Encounter for observation for suspected exposure to other biological agents ruled out; R50.9 Fever, unspecified; F11.20 Opioid dependence, uncomplicated; F31.9 Bipolar disorder, unspecified; F43.10 Post-traumatic stress disorder, unspecified; F14.10 Cocaine abuse, uncomplicated; F19.10 Other psychoactive substance abuse, uncomplicated; Z95.0 Presence of cardiac pacemaker; J45.909 Unspecified asthma, uncomplicated
CPT/HCPCS: 0241U; 36415; 71045; 80053; 80307; 81001; 81025; 83605; 84702; 85025; 86706; 86780; 86803; 87040; 87086; 87088; 87186; 87340; 87389; 87491; 87591; 96374; 99284; 99285; J0696; S9485

== ENCOUNTER 2024-05-12 15:31 | Emergency (ER) | payer OTHER, SELFPAY ==
[2024-05-12 15:37] VITALS: BP 99/47; PULSE 73; RESP 16; TEMP 37; O2SAT 95; BMI 21.6
--- NOTE | 2024-05-12 15:38 | ED_ITS ---
HPI - General Adult General Chief complaint: Psychiatric Symptoms Stated complaint: Crisis Time Seen by Provider: 05/12/24 18:15 Related Data Home Medications ?Medication ?Instructions ?Recorded ?Confirmed divalproex 250 mg tablet,delayed 750 mg PO BEDTIME 07/31/23 12/23/23 release divalproex 500 mg tablet,delayed 500 mg PO DAILY 07/31/23 12/23/23 release hydroxyzine HCl 25 mg tablet 25 mg PO BID PRN Anxiety 07/31/23 12/23/23 indomethacin 50 mg capsule 50 mg PO BID 07/31/23 12/23/23 mometasone-formoterol HFA 100 2 puff inhalation BID 07/31/23 12/23/23 mcg-5 mcg/actuation aerosol inhaler (Dulera) twndchy-olbjrflprzxeh-ebhqfdko 250 2 tab PO Q6H PRN Migraine Headache 09/21/23 11/11/23 mg-250 mg-65 mg tablet (Excedrin Extra Strength) trazodone 150 mg tablet 150 mg PO BEDTIME 11/11/23 12/23/23 methadone 10 mg/mL oral 10 mg PO QPM 12/23/23 12/23/23 concentrate (Methadone Intensol) methadone 10 mg/mL oral 17 mg PO QAM 12/23/23 12/23/23 concentrate (Methadone Intensol) oxycodone 5 mg tablet 5 mg PO Q6H 12/23/23 12/23/23 Previous Rx's ?Medication ?Instructions ?Recorded nebulizer and compressor (PureAir #1 ea 04/09/21 Mini Nebulizer) levetiracetam 500 mg tablet 500 mg PO BID #1 tab 08/12/23 ondansetron 4 mg disintegrating 4 mg translingual Q6H PRN Nausea 08/12/23 tablet And Vomiting #1 tab Knee scooter #1 ea 09/03/23 cyclobenzaprine 10 mg tablet 10 mg PO TID PRN muscle spasm #10 11/09/23 tabs duloxetine 20 mg capsule,delayed 20 mg PO DAILY #30 caps 12/26/23 release nicotine 14 mg/24 hr daily 14 mg transdermal DAILY #30 ea 12/26/23 transdermal patch ketorolac 10 mg tablet 10 mg PO TID PRN pain 5 days #15 02/13/24 tabs cefuroxime axetil 500 mg tablet 500 mg PO BID 7 days #14 tabs 05/04/24 metoprolol succinate 50 mg 50 mg PO DAILY #90 tabs 05/12/24 tablet,extended release 24 hr Allergies Allergy/AdvReac Type Severity Reaction Status Date / Time amoxicillin [AMOXICILLIN] Allergy Intermediate RASH Verified 05/12/24 15:41 Penicillins [PENICILLINS] Allergy Intermediate RASH Verified 05/12/24 15:41 topiramate [From Topamax] AdvReac Unknown Unknown Verified 05/12/24 15:41 lamictal AdvReac Unknown Unknown Uncoded 05/12/24 15:37 [facility] Past Medical History Medical History Headache, migraine Cocaine use disorder Opioid use disorder, moderate, in early remission, on maintenance therapy, dependence Bipolar disorder with depression PTSD (post-traumatic stress disorder) Cardiac pacemaker in situ Opioid use disorder Seizure disorder Clavicle fracture Narcotic abuse Seizures Asthma COPD (chronic obstructive pulmonary disease) Surgical History History of ankle surgery (08/05/23) H/O right knee surgery H/O left knee surgery Social History Social History Household Members: Family Household Members Other:: Mother, father, daughter Housing: House Do you presently have visiting nurse or other home services: Yes Alcohol intake: never Patient Tobacco Use Status: Refuse Tobacco use screen Tobacco use type: Cigarette Smoked in Last 30 Days: No e-Cigarette/Vaping Use: Currently Using Second Hand Smoke Exposure: No Use of substances other than those prescribed or required for medical reasons: Yes Substance Use Type: Crack/Cocaine Substance Use Frequency: Chronic Longstanding Advance Directives: Yes Advance Directives on File: Yes Advance Directives Date on File: 07/31/23 Patient : No service: No Sexual orientation: Straight/Heterosexual Physical Exam ED Vital Signs: Vital Signs - 24 hr 05/12/24 15:37 05/12/24 18:30 Temperature 98.6 F 98 F Pulse Rate 73 76 Respiratory Rate 16 16 Blood Pressure 99/47 L 92/71 Pulse Oximetry 95 96 Oxygen Delivery Method Room Air Room Air BMI result Body Mass Index 21.6 Course Course Course Narrative: RME, this is a rapid medical exam performed by Skip Harding please refer to primary provider for complete H&P- 49 year old female presents for evaluation of increasing depression with auditory hallucinations. She is not suicidal. She reports relapsing with cocaine. Plan for medical clearance and care team evaluation Reevaluation(s) Reevaluation #1: Patient had been previously observe leaving the ER, however her potassium came back elevated at 6.1. I called the patient and advised her to come back to emergency department. She answered the phone and reports that she will be right back. Time: 16:18 Medical Decision Making Lab Data 05/12/24 15:47 05/12/24 19:05 Labs: Lab Results 05/12/24 05/12/24 05/12/24 Range/Units 15:47 18:58 19:05 WBC 4.4 L (4.8-10.8) X10*3/uL RBC 4.15 L (4.20-5.50) X10*6/uL Hgb 11.9 L (12.0-16.0) g/dl Hct 36.2 L (37.0-47.0) % MCV 87.2 (80.0-98.0) fL MCH 28.7 (27.0-33.0) pg MCHC 32.9 (31.0-35.0) g/dl RDW 15.5 (11.0-16.0) % Plt Count 110 L (160-400) X10*3/uL MPV 10.9 (9.4-12.3) fL Immature Gran % (Auto) 0.2 (0.0-0.4) % Neut % (Auto) 28.9 L (45-73) % Lymph % (Auto) 58.2 H (20-40) % [place] % (Auto) 9.7 (2-11) % Eos % (Auto) 2.3 (0-4) % Baso % (Auto) 0.7 (0-2) % Lymph # (Auto) 2.5 (1.2-4.9) X10*3/uL [place] # (Auto) 0.4 (0.1-1.2) X10*3/uL Eos # (Auto) 0.1 (0.0-0.4) X10*3/uL Baso # (Auto) 0.0 (0.0-0.2) X10*3/uL Abs Immat Gran (auto) 0.01 (0.00-0.03) X10*3/uL Absolute Neuts (auto) 1.3 L (2.0-8.3) x10*3/uL Absolute Nucleated RBC 0.000 (0.0-0.012) X10*3/uL Nucleated RBC % (auto) 0.0 (0.0-0.2) /100WBC Sodium 138 (135-145) mmol/L Potassium 6.1 H* D 6.0 H* (3.3-5.1) mmol/L Chloride 104 (96-108) mmol/L Carbon Dioxide 29 (22-29) mmol/L Anion Gap 14 (12-20) BUN 47 H (9-16) mg/dL Creatinine 1.06 (0.5-1.4) mg/dL Estim Creat Clear Calc 71.7 Estimated GFR 55 Random Glucose 107 (60-115) mg/dL Calcium 9.3 D (8.4-10.2) mg/dL Total Bilirubin 0.2 (0.0-1.0) mg/dL AST 24 (5-31) U/L ALT 46 H (0-31) U/L Alkaline Phosphatase 90 (39-117) U/L Total Protein 6.3 L (6.5-8.0) g/dL Albumin 3.7 (3.5-5.0) g/dL Urine Color Yellow Urine Appearance Clear Urine pH 5.5 (5.0-9.0) Ur Specific [place] 1.025 (1.005-1.025) Urine Protein Negative (Neg-Trace) mg/dL Urine Glucose (UA) Negative (Negative) mg/dL Urine Ketones Negative (Negative) mg/dL Urine Blood Large (3+) H (Negative) Urine Nitrite Negative (Negative) Ur Leukocyte Esterase Trace H (Negative) Salicylates < 5.0 L (15-30) mg/dL Urine Opiates Screen Not Detected (Not Detect) Ur Buprenorphine Scrn Not Detected (Not Detect) ng/mL Ur Oxycodone Screen Positive H (Not Detect) ng/mL Urine Methadone Screen Positive H (Not Detect) ng/mL Urine Fentanyl Screen Not Detected (Not Detect) Acetaminophen < 3 (<30) mcg/mL Ur Barbiturates Screen Not Detected (Not Detect) Ur Phencyclidine Scrn Not Detected (Not Detect) Ur Amphetamines Screen Not Detected (Not Detect) U Benzodiazepines Scrn Not Detected (Not Detect) Urine Cocaine Screen POSITIVE H (Not Detect) U Marijuana (THC) Screen Not Detected (Not Detect) Ethyl Alcohol < 10 mg/dL Discharge Plan Discharge Prescriptions: No Action metoprolol succinate 50 mg tablet extended release 24 hr 50 mg PO DAILY Qty: 90 3RF (DME) nebulizer and compressor [PureAir Mini Nebulizer] Device See Rx Instructions .Route Qty: 1 0RF Rx Instructions: As directed cyclobenzaprine 10 mg tablet 10 mg PO TID PRN (Reason: muscle spasm) Qty: 10 0RF oxycodone 5 mg tablet 5 mg PO Q6H methadone [Methadone Intensol] 10 mg/mL Concentrate 17 mg PO QAM methadone [Methadone Intensol] 10 mg/mL Concentrate 10 mg PO QPM nicotine 14 mg/24 hr Patch 24 Hour 14 mg transdermal DAILY Qty: 30 0RF duloxetine 20 mg Capsule,Delayed Release(Dr/Ec) 20 mg PO DAILY Qty: 30 0RF cefuroxime axetil 500 mg tablet 500 mg PO BID 7 Days Qty: 14 0RF divalproex 250 mg tablet,delayed release (DR/EC) 750 mg PO BEDTIME divalproex 500 mg tablet,delayed release (DR/EC) 500 mg PO DAILY indomethacin 50 mg capsule 50 mg PO BID Dulera 100-5 mcg/actuation HFA aerosol inhaler 2 puff inhalation BID hydroxyzine HCl 25 mg tablet 25 mg PO BID PRN (Reason: Anxiety) levetiracetam 500 mg Tablet 500 mg PO BID Qty: 1 0RF ondansetron 4 mg Tablet,Disintegrating 4 mg translingual Q6H PRN (Reason: Nausea And Vomiting) Qty: 1 0RF Excedrin Extra Strength 250-250-65 mg Tablet 2 tab PO Q6H PRN (Reason: Migraine Headache) ketorolac 10 mg tablet 10 mg PO TID PRN (Reason: pain) 5 Days Qty: 15 0RF trazodone 150 mg tablet 150 mg PO BEDTIME (DME) Knee scooter See Rx Instructions .ROUTE .MEDSUPPLY Qty: 1 0RF Rx Instructions: As directed Interventions: [place]-Suicide Risk Severity Scale Last Done: 05/12/24 18:31 Print Language: [place]
[2024-05-12 15:53] LABS: MANUAL DIFF FLAG NO
[2024-05-12 15:55] LABS: Basophils Percent Auto 0.7 % (0-2); Eosinophils Absolute Auto 0.1 X10*3/uL (0.0-0.4); Eosinophils Percent Auto 2.3 % (0-4); Hematocrit 36.2 % (37.0-47.0); Hemoglobin 11.9 g/dl (12.0-16.0); Imm Gran Abs Auto 0.01 X10*3/uL (0.00-0.03); Imm Gran Pct Auto 0.2 % (0.0-0.4); Lymphocytes Absolute Auto 2.5 X10*3/uL (1.2-4.9); Lymphocytes Percent Auto 58.2 % (20-40); Mean Corpuscular HGB Conc 32.9 g/dl (31.0-35.0); Mean Corpuscular Hemoglobin 28.7 pg (27.0-33.0); Mean Corpuscular Volume 87.2 fL (80.0-98.0); Mean Platelet Volume 10.9 fL (9.4-12.3); Monocytes Absolute Auto 0.4 X10*3/uL (0.1-1.2); Monocytes Percent Auto 9.7 % (2-11); Neutrophils Absolute Auto 1.3 x10*3/uL (2.0-8.3); Neutrophils Percent Auto 28.9 % (45-73); Platelet Count 110 X10*3/uL (160-400); Red Blood Count 4.15 X10*6/uL (4.20-5.50); Red Cell Distribution Width 15.5 % (11.0-16.0); White Blood Count 4.4 X10*3/uL (4.8-10.8)
[2024-05-12 16:10] LABS: Acetaminophen LAB < 3 mcg/mL (<30); Salicylate < 5.0 mg/dL (15-30)
[2024-05-12 16:15] LABS: Alanine Aminotransferase 46 U/L (0-31); Albumin Level 3.7 g/dL (3.5-5.0); Alkaline Phosphatase 90 U/L (39-117); Aspartate Amino Transferase 24 U/L (5-31); Bilirubin Total 0.2 mg/dL (0.0-1.0); Blood Urea Nitrogen 47 mg/dL (9-16); Carbon Dioxide 29 mmol/L (22-29); Chloride 104 mmol/L (96-108); Creatinine Clr Calc Pharmacy 71.7; Estimated Glomerular Filt Rate 55; Ethanol < 10 mg/dL; Glucose Random 107 mg/dL (60-115); Potassium 6.1 mmol/L (3.3-5.1); Sodium 138 mmol/L (135-145); Total Protein 6.3 g/dL (6.5-8.0)
[2024-05-12 16:24] LABS: Anion Gap 14 (12-20); Calcium 9.3 mg/dL (8.4-10.2)
[2024-05-12 18:30] VITALS: BP 92/71; PULSE 76; RESP 16; TEMP 36.6; O2SAT 96
--- NOTE | 2024-05-12 18:33 | PC.NURSE ---
patient presents from external triage states she has a history of bipolar and depression, states she wants a tune up and wants to go to [place] for inpatient psychiatric help. patient states she has been having AH that are just saying positive things nothing bad but i have been hearing things for a while now . patient denies SI/HI, subsequent finding patients potassium was elevated, placed on director sales, patient otherwise has no complaints. denies chest pain, shortness of breath, states she has a pacemaker in place and has been weening off of methadone but has still been using cocaine. awaiting MD negron at this time
--- NOTE | 2024-05-12 18:41 | PC.NURSE ---
patient belongings placed in decon
--- NOTE | 2024-05-12 18:59 | ED_ITS ---
HPI - Psych General Chief Complaint: Psychiatric Symptoms Stated Complaint: Crisis Time Seen by Provider: 05/12/24 18:15 Source: patient Mode of arrival: ambulatory Limitations: no limitations History of Present Illness ED Provider: Dr. Janice Raya HPI Narrative: Patient comes to the emergency room complaining of hearing voices. Patient states that she denies suicidal or homicidal ideation, but here in the voices is freaking her out. Patient admits that she recently relapsed and is currently using cocaine. Patient states that she believes that an intensive outpatient program with help her. Patient believes that inpatient treatment would not help her much. Related Data Home Medications ?Medication ?Instructions ?Recorded ?Confirmed divalproex 250 mg tablet,delayed 750 mg PO BEDTIME 07/31/23 12/23/23 release divalproex 500 mg tablet,delayed 500 mg PO DAILY 07/31/23 12/23/23 release hydroxyzine HCl 25 mg tablet 25 mg PO BID PRN Anxiety 07/31/23 12/23/23 indomethacin 50 mg capsule 50 mg PO BID 07/31/23 12/23/23 mometasone-formoterol HFA 100 2 puff inhalation BID 07/31/23 12/23/23 mcg-5 mcg/actuation aerosol inhaler (Dulera) sdotwjl-aqrjlfhxgclry-ztrrrbvr 250 2 tab PO Q6H PRN Migraine Headache 09/21/23 11/11/23 mg-250 mg-65 mg tablet (Excedrin Extra Strength) trazodone 150 mg tablet 150 mg PO BEDTIME 11/11/23 12/23/23 methadone 10 mg/mL oral 10 mg PO QPM 12/23/23 12/23/23 concentrate (Methadone Intensol) methadone 10 mg/mL oral 17 mg PO QAM 12/23/23 12/23/23 concentrate (Methadone Intensol) oxycodone 5 mg tablet 5 mg PO Q6H 12/23/23 12/23/23 Previous Rx's ?Medication ?Instructions ?Recorded nebulizer and compressor (PureAir #1 ea 04/09/21 Mini Nebulizer) levetiracetam 500 mg tablet 500 mg PO BID #1 tab 08/12/23 ondansetron 4 mg disintegrating 4 mg translingual Q6H PRN Nausea 08/12/23 tablet And Vomiting #1 tab Knee scooter #1 ea 09/03/23 cyclobenzaprine 10 mg tablet 10 mg PO TID PRN muscle spasm #10 11/09/23 tabs duloxetine 20 mg capsule,delayed 20 mg PO DAILY #30 caps 12/26/23 release nicotine 14 mg/24 hr daily 14 mg transdermal DAILY #30 ea 12/26/23 transdermal patch ketorolac 10 mg tablet 10 mg PO TID PRN pain 5 days #15 02/13/24 tabs cefuroxime axetil 500 mg tablet 500 mg PO BID 7 days #14 tabs 05/04/24 metoprolol succinate 50 mg 50 mg PO DAILY #90 tabs 05/12/24 tablet,extended release 24 hr Allergies Allergy/AdvReac Type Severity Reaction Status Date / Time amoxicillin [AMOXICILLIN] Allergy Intermediate RASH Verified 05/12/24 15:41 Penicillins [PENICILLINS] Allergy Intermediate RASH Verified 05/12/24 15:41 topiramate [From Topamax] AdvReac Unknown Unknown Verified 05/12/24 15:41 lamictal AdvReac Unknown Unknown Uncoded 05/12/24 15:37 Review of Systems 2 Review of Systems: Constitutional : No Weight loss, No Fever, No Chills, No Night Sweats, No Fatigue, No Malaise ENT/Mouth : No Hearing loss, No Ear Pain, No Nasal Congestion, No Sinus Pain, No Hoarseness, No sore throat, No Rhinorrhea, No Swallowing Difficulty Eyes: No Eye Pain, No Swelling, No Redness, No Foreign Body, No Discharge, No Vision Changes Cardiovascular : No Chest Pain, No SOB, No Dyspnea on Exertion, No Orthopnea, No Edema, No Palpitations Respiratory : No Cough, No Sputum, No Wheezing, No Smoke Exposure, No Dyspnea Gastrointestinal : No Nausea, No Vomiting, No Diarrhea, No Constipation, No abdominal Pain, No Hematochezia, No Melena Genitourinary : no irregular bleeding, No Dysuria, No Urinary Frequency, No Hematuria, No Urinary Incontinence, No Urgency, No Flank Pain, No Urinary Flow Changes, No Hesitancy Musculoskeletal : No joint pain, No Myalgias, No Joint Swelling Skin : No Skin Lesions, No rash Neuro : No Weakness, No Numbness, No Paresthesias, No Loss of Consciousness, No Dizziness, No Headache Psych : Denies SI or HI, admits to hearing voices which are making her scared Heme/Lymph: No Bruising, No Bleeding,No Lymphadenopathy Endocrine : No Polyuria, No Polydipsia, No Temperature Intolerance [facility] Past Medical History Medical History Headache, migraine Cocaine use disorder Opioid use disorder, moderate, in early remission, on maintenance therapy, dependence Bipolar disorder with depression PTSD (post-traumatic stress disorder) Cardiac pacemaker in situ Opioid use disorder Seizure disorder Clavicle fracture Narcotic abuse Seizures Asthma COPD (chronic obstructive pulmonary disease) Surgical History History of ankle surgery (08/05/23) H/O right knee surgery H/O left knee surgery Social History Social History Household Members: Family Household Members Other:: Mother, father, daughter Housing: House Do you presently have visiting nurse or other home services: Yes Alcohol intake: never Patient Tobacco Use Status: Refuse Tobacco use screen Tobacco use type: Cigarette Smoked in Last 30 Days: No e-Cigarette/Vaping Use: Currently Using Second Hand Smoke Exposure: No Use of substances other than those prescribed or required for medical reasons: Yes Substance Use Type: Crack/Cocaine Substance Use Frequency: Chronic Longstanding Advance Directives: Yes Advance Directives on File: Yes Advance Directives Date on File: 07/31/23 Patient : No service: No Sexual orientation: Straight/Heterosexual Physical Exam 2 Vital Signs: Vital Signs: Last Vital Signs Temp 98 F 05/12/24 18:30 Pulse 76 05/12/24 18:30 Resp 16 05/12/24 18:30 BP 92/71 05/12/24 18:30 Pulse Ox 96 05/12/24 18:30 O2 Del Method Room Air 05/12/24 18:30 BMI result Body Mass Index 21.6 Const: Other: Appearance: Alert. Oriented X3. No acute distress. Eyes: Pupils equal, round and reactive to light. ENT: Pharynx normal. Neck: Normal inspection. Neck supple. No lymph nodes noted. No crepitus CVS: Normal heart rate and rhythm. Pulses normal. Normal S1 and S2 Respiratory: No respiratory distress. Breath sounds normal. No Wheezing. No rales Abdomen: Soft and nontender. No rigidity. No distention. Skin: Skin warm and dry. Normal skin color. Normal skin turgor. Extremities: No lower extremity edema. No Lacerations. No Rash Neuro: Oriented X 3. No motor deficit. No sensory deficit. Moving all extremities. No slurred speech. CN 2 through 12 grossly intact Psych: calm, cooperative, slightly anxious Medical Decision Making Medical Decision Making MDM Narrative: No significant abnormality in patient's hematology, chemistry shows a potassium of 6.1. Patient has no reason to be hyperkalemic. Likely a lab error. Potassium level being repeated. If elevated, will treat accordingly. LFTs normal, ETOH negative -patient denies SI or HI, section 12 not indicated at this time. -care team consult pending -patient is out to get medication for hyperkalemia. Patient states that she does not want treatment for hyperkalemia, discussed that it could cause arrhythmias. Patient states that she is aware but she would prefer to home. Patient angry that she is in hospital clothes while waiting to be seen by the care team. Patient is not SI or HI, section 12 not indicated. Per patient's request, patient will be discharged. Patient aware that she is leaving against medical advice given that her potassium is elevated and she refused treatment. Differential Diagnosis Differential Diagnoses: The differential diagnosis associated with the presentation includes (Bipolar disorder, schizophrenia, polysubstance abuse, alcohol abuse) Admission/Observation Consideration of admission/observation: Escalation of care including admission/observation considered (Patient is under physician observation waiting to be seen by the care team) Lab Data MDM Lab Attestation statement: I reviewed the patient's lab results. 05/12/24 15:47 05/12/24 19:05 Labs: Lab Results 05/12/24 05/12/24 05/12/24 Range/Units 15:47 18:58 19:05 WBC 4.4 L (4.8-10.8) X10*3/uL RBC 4.15 L (4.20-5.50) X10*6/uL Hgb 11.9 L (12.0-16.0) g/dl Hct 36.2 L (37.0-47.0) % MCV 87.2 (80.0-98.0) fL MCH 28.7 (27.0-33.0) pg MCHC 32.9 (31.0-35.0) g/dl RDW 15.5 (11.0-16.0) % Plt Count 110 L (160-400) X10*3/uL MPV 10.9 (9.4-12.3) fL Immature Gran % (Auto) 0.2 (0.0-0.4) % Neut % (Auto) 28.9 L (45-73) % Lymph % (Auto) 58.2 H (20-40) % [place] % (Auto) 9.7 (2-11) % Eos % (Auto) 2.3 (0-4) % Baso % (Auto) 0.7 (0-2) % Lymph # (Auto) 2.5 (1.2-4.9) X10*3/uL [place] # (Auto) 0.4 (0.1-1.2) X10*3/uL Eos # (Auto) 0.1 (0.0-0.4) X10*3/uL Baso # (Auto) 0.0 (0.0-0.2) X10*3/uL Abs Immat Gran (auto) 0.01 (0.00-0.03) X10*3/uL Absolute Neuts (auto) 1.3 L (2.0-8.3) x10*3/uL Absolute Nucleated RBC 0.000 (0.0-0.012) X10*3/uL Nucleated RBC % (auto) 0.0 (0.0-0.2) /100WBC Sodium 138 (135-145) mmol/L Potassium 6.1 H* D 6.0 H* (3.3-5.1) mmol/L Chloride 104 (96-108) mmol/L Carbon Dioxide 29 (22-29) mmol/L Anion Gap 14 (12-20) BUN 47 H (9-16) mg/dL Creatinine 1.06 (0.5-1.4) mg/dL Estim Creat Clear Calc 71.7 Estimated GFR 55 Random Glucose 107 (60-115) mg/dL Calcium 9.3 D (8.4-10.2) mg/dL Total Bilirubin 0.2 (0.0-1.0) mg/dL AST 24 (5-31) U/L ALT 46 H (0-31) U/L Alkaline Phosphatase 90 (39-117) U/L Total Protein 6.3 L (6.5-8.0) g/dL Albumin 3.7 (3.5-5.0) g/dL Urine Color Yellow Urine Appearance Clear Urine pH 5.5 (5.0-9.0) Ur Specific [place] 1.025 (1.005-1.025) Urine Protein Negative (Neg-Trace) mg/dL Urine Glucose (UA) Negative (Negative) mg/dL Urine Ketones Negative (Negative) mg/dL Urine Blood Large (3+) H (Negative) Urine Nitrite Negative (Negative) Ur Leukocyte Esterase Trace H (Negative) Salicylates < 5.0 L (15-30) mg/dL Urine Opiates Screen Not Detected (Not Detect) Ur Buprenorphine Scrn Not Detected (Not Detect) ng/mL Ur Oxycodone Screen Positive H (Not Detect) ng/mL Urine Methadone Screen Positive H (Not Detect) ng/mL Urine Fentanyl Screen Not Detected (Not Detect) Acetaminophen < 3 (<30) mcg/mL Ur Barbiturates Screen Not Detected (Not Detect) Ur Phencyclidine Scrn Not Detected (Not Detect) Ur Amphetamines Screen Not Detected (Not Detect) U Benzodiazepines Scrn Not Detected (Not Detect) Urine Cocaine Screen POSITIVE H (Not Detect) U Marijuana (THC) Screen Not Detected (Not Detect) Ethyl Alcohol < 10 mg/dL Critical Care Time Critical Care Time Critical Care Time: Yes Total Critical Care Time: 35 Attestation: I have personally provided critical care time. Time includes review of lab data, radiology results, discussion with consultants, and monitoring for potential decompensation. Intervention performed as documented. Discharge Plan Discharge Clinical Impression: Acute hyperkalemia, Hallucinations Patient Disposition: Left Against Medical Advice Instructions: Hyperkalemia (ED), Potassium Content of Foods List (ED), Hallucinations (ED) Additional Instructions: You refused treatment for your high potassium. High potassium can cause lethal arrhythmias, leading to . Please follow-up with your primary care physician tomorrow. If you have any worsening or new symptoms, please return to the emergency room or call 911 Prescriptions: No Action metoprolol succinate 50 mg tablet extended release 24 hr 50 mg PO DAILY Qty: 90 3RF (DME) nebulizer and compressor [PureAir Mini Nebulizer] Device See Rx Instructions .Route Qty: 1 0RF Rx Instructions: As directed cyclobenzaprine 10 mg tablet 10 mg PO TID PRN (Reason: muscle spasm) Qty: 10 0RF oxycodone 5 mg tablet 5 mg PO Q6H methadone [Methadone Intensol] 10 mg/mL Concentrate 17 mg PO QAM methadone [Methadone Intensol] 10 mg/mL Concentrate 10 mg PO QPM nicotine 14 mg/24 hr Patch 24 Hour 14 mg transdermal DAILY Qty: 30 0RF duloxetine 20 mg Capsule,Delayed Release(Dr/Ec) 20 mg PO DAILY Qty: 30 0RF cefuroxime axetil 500 mg tablet 500 mg PO BID 7 Days Qty: 14 0RF divalproex 250 mg tablet,delayed release (DR/EC) 750 mg PO BEDTIME divalproex 500 mg tablet,delayed release (DR/EC) 500 mg PO DAILY indomethacin 50 mg capsule 50 mg PO BID Dulera 100-5 mcg/actuation HFA aerosol inhaler 2 puff inhalation BID hydroxyzine HCl 25 mg tablet 25 mg PO BID PRN (Reason: Anxiety) levetiracetam 500 mg Tablet 500 mg PO BID Qty: 1 0RF ondansetron 4 mg Tablet,Disintegrating 4 mg translingual Q6H PRN (Reason: Nausea And Vomiting) Qty: 1 0RF Excedrin Extra Strength 250-250-65 mg Tablet 2 tab PO Q6H PRN (Reason: Migraine Headache) ketorolac 10 mg tablet 10 mg PO TID PRN (Reason: pain) 5 Days Qty: 15 0RF trazodone 150 mg tablet 150 mg PO BEDTIME (DME) Knee scooter See Rx Instructions .ROUTE .MEDSUPPLY Qty: 1 0RF Rx Instructions: As directed Interventions: [place]-Suicide Risk Severity Scale Last Done: 05/12/24 18:31 Print Language: [place]
--- NOTE | 2024-05-12 19:00 | MHC.CARE ---
CARE Team originally received CONSULT at 1540. Patient then left the ED without receiving treatment. She was contacted by ED provider and asked to return due to critical lab value. She has now returned to the ED and is pending medical clearance once again.
[2024-05-12 19:24] LABS: Amphetamine Screen Urine Not Detected (Not Detect); Barbiturates, Urine Not Detected (Not Detect); Benzodiazepines Screen Urine Not Detected (Not Detect); Buprenorphine Scr Not Detected (Not Detect); Cannabinoid Screen Urine Not Detected (Not Detect); Cocaine Screen Urine POSITIVE (Not Detect); Fentanyl, urine Not Detected (Not Detect); Methadone Screen, Urine Positive (Not Detect); Opiate Screen Urine Not Detected (Not Detect); Oxycodone Screen Urine Positive (Not Detect); Phencyclidine Screen Urine Not Detected (Not Detect)
[2024-05-12 19:36] LABS: Appearance Urine Clear; Color Urine Yellow; Glucose Urine UA Negative (Negative); Leukocyte Esterase Urine Trace (Negative); Nitrite Urine Negative (Negative); PH 5.5 (5.0-9.0); Specific Gravity - Urine 1.025 (1.005-1.025); UMIC TRIGGER UA YES; Urine Blood Large (3+) (Negative); Urine Ketones Negative (Negative); Urine Protein Negative (Neg-Trace)
--- NOTE | 2024-05-12 20:22 | PC.NURSE ---
Went to provide treatment when patient stated, I just want to leave and go home to my bed, MD made aware. Patient educated by MD. Patient leaving AMA
[2024-05-12 20:29] LABS: UPreg QC Valid YES; Urine Pregnancy NEGATIVE (NEGATIVE)
[2024-05-12 20:34] VITALS: BP 0/0; PULSE 0; RESP 20; TEMP -17.7; TEMP 0; O2SAT 0
[2024-05-12 20:37] LABS: Bacteria Urine None Seen (None Seen); Hyaline Casts Urine 0-2 /LPF (0-2); Squamous Epithelial Cell Urine 0-2 /HPF (0-2); WBC Urine 0-5 /HPF (0-5)
== END 2024-05-12 20:35 | disposition left against medical advice (07) ==
PROVIDERS: Physician Assistant; Emergency Provider Emergency Medicine; PCP Internal Medicine
DX: R44.0 Auditory hallucinations (principal); E87.5 Hyperkalemia; F19.90 Other psychoactive substance use, unspecified, uncomplicated; Z79.899 Other long term (current) drug therapy; Z53.29 Procedure and treatment not carried out because of patient's decision for other reasons
CPT/HCPCS: 36415; 80053; 80143; 80179; 80307; 81001; 81025; 84132; 85025; 99285

== ENCOUNTER 2024-05-17 12:41 | Outpatient (REF) | payer OTHER, SELFPAY | END 2024-05-17 12:42 | disposition home or self-care (01) | LOC: HO.LAB 12:41 | PROVIDERS: PCP Internal Medicine; Visit Provider Internal Medicine Cardiovascular Disease | DX: Z95.0 Presence of cardiac pacemaker (principal); I95.9 Hypotension, unspecified; Z01.810 Encounter for preprocedural cardiovascular examination | CPT/HCPCS: 93005; 93280; 99212 ==

== ENCOUNTER 2024-05-17 12:41 | Outpatient (AMB) | payer OTHER, SELFPAY ==
[2024-05-17 13:06] VITALS: BP 90/60; PULSE 81; BMI 21.3
--- NOTE | 2024-05-17 13:06 | A.OFFVIS_ITS ---
Vital Signs 05/17/24 13:06 Height 5 ft 11.5 in Weight 155 lb 3.287 oz BMI 21.3 BP 90/60 Blood Pressure Location Lt brachial Position Sitting Pulse 81 Intake Visit Reasons: 6 mth f/up w/ [facility] pacer ck Intake Note: 6month f/u. Has been to [facility] ED a few times for elevated Potassium and UTI. Pt states having right knee surgery end of May. Clearance needed. Pt also states has had some palp. Tobacco Sample Puller Required: No Accompanied by: Self / Same As Patient Allergies amoxicillin [AMOXICILLIN] Allergy (Intermediate, Verified 05/12/24 15:41) RASH Penicillins [PENICILLINS] Allergy (Intermediate, Verified 05/12/24 15:41) RASH topiramate [From Topamax] Adverse Reaction (Unknown, Verified 05/12/24 15:41) Unknown lamictal Adverse Reaction (Unknown, Uncoded 05/12/24 15:37) Unknown Medication List - Last Reconciled 05/17/24 by Lalit Woody MD [id number]-[id number] 250-250-65 mg (Excedrin Extra Strength) 2 tabs PO Q6H PRN divalproex 750 mg PO BEDTIME divalproex 500 mg PO DAILY duloxetine 20 mg PO DAILY indomethacin 50 mg PO BID [Knee scooter As directed] levetiracetam 500 mg PO BID methadone (Methadone Intensol) 10 mg PO QPM methadone (Methadone Intensol) 15 mg PO QAM metoprolol succinate ER 50 mg PO DAILY mometasone-formoterol 100-5 mcg/actuation (Dulera) 2 puffs inhalation BID nebulizer and compressor (PureAir Mini Nebulizer) As directed ondansetron 4 mg translingual Q6H PRN oxycodone 5 mg PO Q6H trazodone 150 mg PO BEDTIME HPI Comments Details: Chi comes for follow-up of her pacemaker. Patient continues to have symptoms lightheadedness mostly during the daytime. She has not had any syncopal episodes since the pacemaker placement. Denies any cardiac symptoms. She says she drinks about 2-3 L of water every day but does not have enough salt in her diet. Denies any significant palpitations or prolonged irregular heartbeat. [facility] Medical History Headache, migraine Cocaine use disorder Opioid use disorder, moderate, in early remission, on maintenance therapy, dependence Bipolar disorder with depression PTSD (post-traumatic stress disorder) Cardiac pacemaker in situ Opioid use disorder Seizure disorder Clavicle fracture Narcotic abuse Seizures Asthma COPD (chronic obstructive pulmonary disease) Surgical History History of ankle surgery (08/05/23) H/O right knee surgery H/O left knee surgery Social History Household Members: Family Household Members Other:: Mother, father, daughter Housing: House Do you presently have visiting nurse or other home services: Yes Alcohol intake: never Patient Tobacco Use Status: Refuse Tobacco use screen Tobacco use type: Cigarette e-Cigarette/Vaping Use: Currently Using Second Hand Smoke Exposure: No Substance Use Type: Crack/Cocaine Advance Directives Date on File: 07/31/23 service: No Sexual orientation: Straight/Heterosexual Review of Systems Const Denies chills, Denies fatigue, Denies fever(s), Denies weight gain and Denies weight loss ENT Denies dizziness Card Denies chest pain, Denies leg edema, Denies lightheadedness, Reports palpitations, Denies dyspnea on exertion, Denies orthopnea and Denies other Resp Denies cough and Denies dyspnea on exertion GI Denies hematochezia and Denies change in stool character Musc Denies abnormal gait, Denies muscle weakness, Denies numbness, Denies radiating pain into limb and Denies tingling Neuro Denies abnormal gait, Denies dizziness, Denies numbness and Denies tingling Endo Denies fatigue and Reports palpitations Physical Exam Vital Signs: Last Vital Signs Pulse 81 05/17/24 13:06 BP 90/60 05/17/24 13:06 BMI result Body Mass Index 21.3 Const General: cooperative, comfortable, no acute distress, alert, awake and anxious Nutritional Appearance: average body habitus Orientation/consciousness: patient oriented x3 Neck Neck: Yes trachea midline, Yes supple and Yes no JVD Resp Effort & Inspection: normal respiratory effort Auscultation: clear to auscultation bilaterally Cardio Jugular venous distension: no JVD Rate: tachycardic Rhythm: regular rhythm Heart sounds: S1 normal heart sound present, S2 normal heart sound present, no click, no gallops, no murmurs and no rubs GI Auscultation: normal bowel sounds Skin General skin exam: no rashes or lesions noted Neuro General: patient oriented x3 and no focal motor deficits Office Procedures Cardiac Device Check Cardiac Device Check Details: Dual-chamber [facility] pacemaker in place. Programmed in DDDR at 60 beats per minute. Atrial pacing 42% of time. Atrial ventricular sensing is adequate. Atrial pacing thresholds are stable and excellent and reprogrammed to enhance battery life. Ventricular pacing thresholds are stable and reprogrammed to enhance battery life. Pacing lead impedance is stable. Battery life is excellent. Few episodes recorded as atrial fibrillation appear to be sinus tachycardia. [id number] Cardiac Device Check, pacemaker dual lead Procedure code (CPT) selection complete Assessment & Plan Assessment & Plan (1) Cardiac pacemaker in situ: Comment: [facility] Dual Chamber placed on 09/25/23 Code(s): Z95.0 - Presence of cardiac pacemaker Category: Medical Plan: Cardiac pacemaker in-situ for sick sinus syndrome. Pacemaker is working well. Patient has had no significant syncopal episodes since pacemaker placement. Continue monitor remotely and follow up in the clinic in 6 months time. (2) Low blood pressure: Code(s): I95.9 - Hypotension, unspecified Category: Medical Plan: Patient persistently has low blood pressure, multiple medications that can potentially cause orthostatic hypotension. However these are required medications for her. We discussed about mechanism of orthostatic hypotension. Continue current oral water intake. Advised to increase her salt intake liberally. If this is not resolve in issues and correcting a blood pressure, will probably consider pharmacotherapy with either fludrocortisone or midodrine therapy. This was discussed with her. Orthostatic precautions discussed. Will follow up in the clinic in 6 months time, sooner p.r.n.. Thank you for allowing me to partake in his care (3) Preoperative cardiovascular examination: Code(s): Z01.810 - Encounter for preprocedural cardiovascular examination Plan: Preoperative cardiovascular risk stratification for possible knee surgery. If patient requires to undergo the surgery she is optimized to undergo surgery with low to intermediate risk for perioperative cardiovascular morbidity mortality. Most common perioperative issue would be low blood pressure which can be treated with fluid expansion. Thank you for allowing me to partake in his care Coding Level of Care Code Est Pt Level 4 (31699) Complex EM visit Add On G2211 Diagnoses Cardiac pacemaker in situ Z95.0 Low blood pressure I95.9 Preoperative cardiovascular examination Z01.810 CPT Codes Cardiac Device Check - Cardiac Device 2: [id number] Cardiac Device Check, pacemaker dual lead ([id number])
== END 2024-05-17 13:32 | disposition home or self-care (01) ==
LOC: HO.HCS 12:42
PROVIDERS: PCP Internal Medicine; Visit Provider Internal Medicine Cardiovascular Disease
DX: I95.9 Hypotension, unspecified (principal); Z01.810 Encounter for preprocedural cardiovascular examination; Z95.0 Presence of cardiac pacemaker
CPT/HCPCS: 93010; 93280; 99214; G2211

== ENCOUNTER 2024-05-18 08:46 | Emergency (ER) | payer OTHER, SELFPAY ==
[2024-05-18] VITALS (7 sets, daily range): BP systolic 85–113; BP diastolic 43–77; PULSE 65–84; RESP 16–18; TEMP 36.8; O2SAT 95–99; BMI 23.0
--- NOTE | 2024-05-18 09:03 | ED.GENADULT ---
HPI - General Adult General Chief complaint: ETOH/Substance Use Stated complaint: RELAPSED IN COCAINE USE Time Seen by Provider: 05/18/24 09:03 Source: patient and EMS Mode of arrival: EMS Limitations: no limitations History of Present Illness ED Provider: Angela John PA-C HPI narrative: Patient is a 49 year old assigned female at with a history of cocaine abuse and asthma presenting to the emergency department today requesting detox and reporting increased depression. Patient states that she has been using cocaine inappropriately again and is feeling much more depressed with no thoughts of hurting herself or others. Patient denies any dizziness, lightheadedness, abdominal pain, nausea, vomiting, fever, chills, blurry vision, double vision, loss of vision, chest pain, difficulty breathing, shortness of breath, back pain, night sweats, pain with urination, increased urinary frequency, increased urinary urgency, blood in her urine or stool, syncope or a near syncopal episode, recent trauma or falls, bowel incontinence, bladder incontinence, or any other complaints at this time. Relieving factors: none Exacerbating factors: none Associated symptoms: denies other symptoms Treatments prior to arrival: none Related Data Home Medications ?Medication ?Instructions ?Recorded ?Confirmed divalproex 250 mg tablet,delayed 750 mg PO BEDTIME 07/31/23 05/17/24 release divalproex 500 mg tablet,delayed 500 mg PO DAILY 07/31/23 05/17/24 release indomethacin 50 mg capsule 50 mg PO BID 07/31/23 05/17/24 mometasone-formoterol HFA 100 2 puff inhalation BID 07/31/23 05/17/24 mcg-5 mcg/actuation aerosol inhaler (Dulera) [id number]-[id number]-ryqjcnpu 250 2 tab PO Q6H PRN Migraine Headache 09/21/23 05/17/24 mg-250 mg-65 mg tablet (Excedrin Extra Strength) trazodone 150 mg tablet 150 mg PO BEDTIME 11/11/23 05/17/24 methadone 10 mg/mL oral 10 mg PO QPM 12/23/23 05/17/24 concentrate (Methadone Intensol) oxycodone 5 mg tablet 5 mg PO Q6H 12/23/23 05/17/24 methadone 10 mg/mL oral 15 mg PO QAM 11/05/24 11/05/24 concentrate (Methadone Intensol) Previous Rx's ?Medication ?Instructions ?Recorded nebulizer and compressor (PureAir #1 ea 04/09/21 Mini Nebulizer) levetiracetam 500 mg tablet 500 mg PO BID #1 tab 08/12/23 ondansetron 4 mg disintegrating 4 mg translingual Q6H PRN Nausea 08/12/23 tablet And Vomiting #1 tab Knee scooter #1 ea 09/03/23 duloxetine 20 mg capsule,delayed 20 mg PO DAILY #30 caps 12/26/23 release metoprolol succinate 50 mg 50 mg PO DAILY #90 tabs 05/12/24 tablet,extended release 24 hr Allergies Allergy/AdvReac Type Severity Reaction Status Date / Time amoxicillin [AMOXICILLIN] Allergy Intermediate RASH Verified 05/18/24 08:51 Penicillins [PENICILLINS] Allergy Intermediate RASH Verified 05/18/24 08:51 topiramate [From Topamax] AdvReac Unknown Unknown Verified 05/18/24 08:51 lamictal AdvReac Unknown Unknown Uncoded 05/18/24 08:51 Review of Systems Constitutional: Constitutional: Reports no additional constitutional complaints, Denies chills, Denies fever(s) and Denies night sweats Eyes: Eyes: Reports no additional eye complaints, Denies blurry vision, Denies change in vision, Denies diplopia, Denies eye discharge, Denies loss of vision and Denies eye pain ENT: Denies dizziness Cardiovascular: Cardiovascular: Reports no additional cardiovascular complaints, Denies chest pain, Denies lightheadedness, Denies Loss of Consciousness and Denies dyspnea Respiratory: Respiratory: Reports no additional respiratory complaints and Denies dyspnea Gastrointestinal: Gastrointestinal: Reports no additional gastrointestinal complaints, Denies abdominal pain, Denies melena, Denies hematochezia, Denies change in bowel habits and Denies change in stool character Genitourinary: Genitourinary: Denies hematuria, Denies urinary frequency, Denies dysuria, Denies urinary incontinence, Denies urinary hesitancy and Denies urinary urgency Musculoskeletal: Musculoskeletal: Reports no additional musculoskeletal complaints, Denies numbness and Denies tingling Neurologic: Denies dizziness, Denies loss of vision, Denies numbness and Denies tingling Psychiatric: Psychiatric: Reports depression, Denies homicidal ideation and Denies suicidal ideation Endocrine: Endocrine: Reports no additional endocrine complaints Hematologic/Lymphatic: Hematologic/Lymphatic: Reports no additional hematologic/lymphatic complaints Allergic/Immunologic: Allergic/Immunologic: Reports no additional allergic/immunologic complaints [facility] Past Medical History Attestation statement: The following information was validated with the patient. Source: old records reviewed and nursing notes reviewed Medical History Headache, migraine Cocaine use disorder Opioid use disorder, moderate, in early remission, on maintenance therapy, dependence Bipolar disorder with depression PTSD (post-traumatic stress disorder) Cardiac pacemaker in situ Opioid use disorder Seizure disorder Clavicle fracture Narcotic abuse Seizures Asthma COPD (chronic obstructive pulmonary disease) Surgical History History of ankle surgery (08/05/23) H/O right knee surgery H/O left knee surgery Social History Social History Household Members: Family Household Members Other:: Mother, father, daughter Housing: House Do you presently have visiting nurse or other home services: Yes Alcohol intake: never Patient Tobacco Use Status: Refuse Tobacco use screen Tobacco use type: Cigarette e-Cigarette/Vaping Use: Currently Using Second Hand Smoke Exposure: No Use of substances other than those prescribed or required for medical reasons: Yes Substance Use Type: Crack/Cocaine Substance Use Frequency: Chronic Longstanding Last Used Substance: Hours (ago) Advance Directives: Yes Advance Directives on File: Yes Advance Directives Date on File: 07/31/23 Do you have a plan to hurt others: No Plan Patient : No service: No Sexual orientation: Straight/Heterosexual Physical Exam ED Vital Signs: Vital Signs - 24 hr 05/18/24 08:50 05/18/24 12:45 Temperature 98.3 F 98.2 F Pulse Rate 72 69 Respiratory Rate 16 16 Blood Pressure 97/43 L 93/57 L Pulse Oximetry 96 99 Oxygen Delivery Method Room Air Room Air BMI result Body Mass Index 23.0 Const General: cooperative, no acute distress, alert and awake Nutritional Appearance: well nourished Orientation/consciousness: patient oriented x3 Limitations: no limitations HENMT Head: Yes normal to inspection and Yes atraumatic Ears: hearing grossly normal bilaterally and external ears normal General nose exam: Normal external nose present, no nasal discharge noted and no epistaxis Face and sinus: Yes normal facial exam, No abrasion and No laceration Mouth: Normal oral and palatal mucosa present, no drooling and no muffled voice Eyes General: appearance normal, both eyes and all related structures Periorbital: periorbital findings normal Eyelids: Yes eyelids normal Conjunctivae: conjunctivae normal Pupils: Equal, round and reactive pupils present EOM: EOMs intact bilaterally Neck Neck: Yes normal visual inspection, Yes full ROM and Yes no lymphadenopathy Chest Chest palpation & inspection: normal inspection of the chest Resp Effort & Inspection: normal respiratory effort and able to speak in complete sentences GI Inspection: Yes normal to inspection Neuro General: patient oriented x3 and moves all extremities Cranial nerves: Yes Equal, round and reactive pupils present Cognition (Neuro): normal cognition Extrem General: Yes normal to inspection, Yes full ROM and Yes capillary refill normal Psych Appearance: grossly normal Mental Status: mental status grossly normal Affect: normal affect Attitude: cooperative Thought process: Normal thought process present Thought content: Normal thought content present Insight: Good insight present (Psych) Medical Decision Making Medical Decision Making MDM Narrative: Patient is a 49 year old assigned female at with a history of cocaine abuse and depression presenting to the emergency department today with cocaine use and increased depression. Patient's physical exam was unremarkable. Patient's blood work was unremarkable. Patient's urine showed no acute process. Patient's EKG was unremarkable. Patient was evaluated by the addiction and CARE teams who recommended dual diagnosis admission. I explained my physical exam findings as well as all test results to the patient. I answered all questions asked by the patient. Patient accepted at a dual diagnosis facility. Patient verbalized agreement and understanding with this treatment plan and transfer to dual diagnosis admission facility. Differential Diagnosis Differential Diagnoses: The differential diagnosis associated with the presentation includes Substance abuse Cocaine abuse Depression Admission/Observation Consideration of admission/observation: Escalation of care including admission/observation considered Patient accepted for transfer to dual diagnosis facility. Consult Healthcare Provider Management of the patient was discussed with: Behavioral Health Provider (spoke to the addiction and CARE teams as noted in the MDM Rationale portion of this note. ) Lab Data [facility] Lab Attestation statement: I reviewed the patient's lab results. My interpretation of these results are in the MDM Rationale portion of this note. 05/18/24 09:35 05/18/24 09:35 Labs: Lab Results 05/17/24 05/18/24 05/18/24 Range/Units 09:35 09:35 09:51 WBC 3.9 L (4.8-10.8) X10*3/uL RBC 3.86 L (4.20-5.50) X10*6/uL RBC (Send Out) Cancelled Hgb 10.9 L (12.0-16.0) g/dl Hgb (Send Out) Cancelled Hct 33.6 L (37.0-47.0) % Hct (Send Out) Cancelled MCV 87.0 (80.0-98.0) fL MCV (Send Out) Cancelled MCH 28.2 (27.0-33.0) pg MCH (Send Out) Cancelled MCHC 32.4 (31.0-35.0) g/dl RDW 16.2 H (11.0-16.0) % Red Cell Dist (Send Out) Cancelled Plt Count 105 L (160-400) X10*3/uL MPV 9.4 (9.4-12.3) fL Immature Gran % (Auto) 0.3 (0.0-0.4) % Neut % (Auto) 55.3 (45-73) % Lymph % (Auto) 32.5 (20-40) % [place] % (Auto) 10.4 (2-11) % Eos % (Auto) 1.0 (0-4) % Baso % (Auto) 0.5 (0-2) % Lymph # (Auto) 1.3 (1.2-4.9) X10*3/uL [place] # (Auto) 0.4 (0.1-1.2) X10*3/uL Eos # (Auto) 0.0 (0.0-0.4) X10*3/uL Baso # (Auto) 0.0 (0.0-0.2) X10*3/uL Abs Immat Gran (auto) 0.01 (0.00-0.03) X10*3/uL Absolute Neuts (auto) 2.2 (2.0-8.3) x10*3/uL Absolute Nucleated RBC 0.000 (0.0-0.012) X10*3/uL Nucleated RBC % (auto) 0.0 (0.0-0.2) /100WBC Hemoglobin A Cancelled Hemoglobin A2 Cancelled Hemoglobin C Cancelled Hemoglobin E Cancelled Hemoglobin F Cancelled Hemoglobin S Cancelled Hgb ELP Comment Cancelled Hgb ELP Comment 2 Cancelled Hgb ELP Interp Cancelled Sodium 137 (135-145) mmol/L Potassium 5.0 (3.3-5.1) mmol/L Chloride 100 (96-108) mmol/L Carbon Dioxide 31 H (22-29) mmol/L Anion Gap 11 L (12-20) BUN 28 H (9-16) mg/dL Creatinine 0.81 (0.5-1.4) mg/dL Estim Creat Clear Calc 93.8 Estimated GFR > 60 Random Glucose 69 (60-115) mg/dL Calcium 9.4 (8.4-10.2) mg/dL Total Bilirubin 0.3 (0.0-1.0) mg/dL AST 21 (5-31) U/L ALT 20 (0-31) U/L Alkaline Phosphatase 61 (39-117) U/L Lactate Dehydrogenase Cancelled Total Protein 5.9 L (6.5-8.0) g/dL Albumin 3.7 (3.5-5.0) g/dL Urine Color Yellow Urine Appearance Clear Urine pH 8.0 (5.0-9.0) Ur Specific [place] 1.020 (1.005-1.025) Urine Protein Negative (Neg-Trace) mg/dL Urine Glucose (UA) Negative (Negative) mg/dL Urine Ketones 15 (Negative) mg/dL Urine Blood Negative (Negative) Urine Nitrite Negative (Negative) Ur Leukocyte Esterase Negative (Negative) Urine Test NEGATIVE (NEGATIVE) Salicylates < 5.0 L (15-30) mg/dL Urine Opiates Screen POSITIVE H (Not Detect) Ur Buprenorphine Scrn Not Detected (Not Detect) ng/mL Ur Oxycodone Screen Positive H (Not Detect) ng/mL Urine Methadone Screen Not Detected (Not Detect) ng/mL Urine Fentanyl Screen POSITIVE H (Not Detect) Acetaminophen < 3 (<30) mcg/mL Ur Barbiturates Screen Not Detected (Not Detect) Ur Phencyclidine Scrn Not Detected (Not Detect) Ur Amphetamines Screen Not Detected (Not Detect) U Benzodiazepines Scrn Not Detected (Not Detect) Urine Cocaine Screen POSITIVE H (Not Detect) U Marijuana (THC) Screen Not Detected (Not Detect) Ethyl Alcohol < 10 mg/dL COVID-19 (ZEINA) Negative (Negative) COVID-19 Clin Com See Note ÁNGELA, Polyspecific Cancelled Positive ÁNGELA Work-up Cancelled Independent Interpretation I performed an independent interpretation of an: EKG Interpretation: Vent. Rate: 068 BPM Atrial Rate: 068 BPM P-R Int: 174 ms QRS Dur: 092 ms QT Int: 416 ms P-R-T Axes: 074 051 071 degrees QTc Int: 442 ms Normal sinus rhythm Normal ECG When compared with ECG of 22-DEC-2023 10:28, Nonspecific T wave abnormality no longer evident in Inferior leads T wave inversion no longer evident in Anterolateral leads DD/ 0932 Radiology Impression Discussion of test interpretation with radiology: I have reviewed the radiologist's reading. Independent Historian Clinical information obtained from an independent historian. History obtained from or confirmed by: EMS (EMS provided additional history and confirmed the history provided by the patient.) Critical Care Time Critical Care Time Critical Care Time: Yes Total Critical Care Time: 34 Attestation: I spent 34 minutes of Critical Care Time with this patient. This does not include time spent on separately reported billable procedures. Discharge Plan Discharge Clinical Impression: Cocaine abuse, Depression Patient Disposition: Xfer Other Transfer Details: Dual diagnosis facility Prescriptions: No Action metoprolol succinate 50 mg tablet extended release 24 hr 50 mg PO DAILY Qty: 90 3RF (DME) nebulizer and compressor [PureAir Mini Nebulizer] Device See Rx Instructions .Route Qty: 1 0RF Rx Instructions: As directed oxycodone 5 mg tablet 5 mg PO Q6H methadone [Methadone Intensol] 10 mg/mL Concentrate 10 mg PO QPM duloxetine 20 mg Capsule,Delayed Release(Dr/Ec) 20 mg PO DAILY Qty: 30 0RF methadone [Methadone Intensol] 10 mg/mL concentrate 15 mg PO QAM divalproex 250 mg tablet,delayed release (DR/EC) 750 mg PO BEDTIME divalproex 500 mg tablet,delayed release (DR/EC) 500 mg PO DAILY indomethacin 50 mg capsule 50 mg PO BID Dulera 100-5 mcg/actuation HFA aerosol inhaler 2 puff inhalation BID levetiracetam 500 mg Tablet 500 mg PO BID Qty: 1 0RF ondansetron 4 mg Tablet,Disintegrating 4 mg translingual Q6H PRN (Reason: Nausea And Vomiting) Qty: 1 0RF Excedrin Extra Strength 250-250-65 mg Tablet 2 tab PO Q6H PRN (Reason: Migraine Headache) trazodone 150 mg tablet 150 mg PO BEDTIME (DME) Knee scooter See Rx Instructions .ROUTE .MEDSUPPLY Qty: 1 0RF Rx Instructions: As directed Print Language: Vincentian
--- NOTE | 2024-05-18 09:04 | ECG_ITS ---
Test Reason : COCAINE USE Blood Pressure : / mmHG Vent. Rate : 068 BPM Atrial Rate : 068 BPM P-R Int : 174 ms QRS Dur : 092 ms QT Int : 416 ms P-R-T Axes : 074 051 071 degrees QTc Int : 442 ms Normal sinus rhythm Normal ECG When compared with ECG of 22-DEC-2023 10:28, Nonspecific T wave abnormality no longer evident in Inferior leads T wave inversion no longer evident in Anterolateral leads Referred By: Angela John Electronically Signed By:BRENT LEMOS MD
[2024-05-18 09:40] LABS: MANUAL DIFF FLAG NO
[2024-05-18 09:41] LABS: Basophils Percent Auto 0.5 % (0-2); Hematocrit 33.6 % (37.0-47.0); Hemoglobin 10.9 g/dl (12.0-16.0); Imm Gran Abs Auto 0.01 X10*3/uL (0.00-0.03); Imm Gran Pct Auto 0.3 % (0.0-0.4); Lymphocytes Absolute Auto 1.3 X10*3/uL (1.2-4.9); Lymphocytes Percent Auto 32.5 % (20-40); Mean Corpuscular HGB Conc 32.4 g/dl (31.0-35.0); Mean Corpuscular Hemoglobin 28.2 pg (27.0-33.0); Mean Platelet Volume 9.4 fL (9.4-12.3); Monocytes Absolute Auto 0.4 X10*3/uL (0.1-1.2); Monocytes Percent Auto 10.4 % (2-11); Neutrophils Absolute Auto 2.2 x10*3/uL (2.0-8.3); Neutrophils Percent Auto 55.3 % (45-73); Platelet Count 105 X10*3/uL (160-400); Red Blood Count 3.86 X10*6/uL (4.20-5.50); Red Cell Distribution Width 16.2 % (11.0-16.0); White Blood Count 3.9 X10*3/uL (4.8-10.8)
[2024-05-18 09:58] LABS: Acetaminophen LAB < 3 mcg/mL (<30); Alanine Aminotransferase 20 U/L (0-31); Albumin Level 3.7 g/dL (3.5-5.0); Alkaline Phosphatase 61 U/L (39-117); Anion Gap 11 (12-20); Aspartate Amino Transferase 21 U/L (5-31); Bilirubin Total 0.3 mg/dL (0.0-1.0); Blood Urea Nitrogen 28 mg/dL (9-16); Calcium 9.4 mg/dL (8.4-10.2); Carbon Dioxide 31 mmol/L (22-29); Chloride 100 mmol/L (96-108); Creatinine Clr Calc Pharmacy 93.8; Estimated Glomerular Filt Rate > 60; Ethanol < 10 mg/dL; Glucose Random 69 mg/dL (60-115); Salicylate < 5.0 mg/dL (15-30); Sodium 137 mmol/L (135-145); Total Protein 5.9 g/dL (6.5-8.0)
[2024-05-18 10:03] LABS: COVID-19 Test Negative (Negative); IDNOW Serial# 152EDE1D
[2024-05-18 10:08] LABS: Appearance Urine Clear; Color Urine Yellow; Glucose Urine UA Negative (Negative); Leukocyte Esterase Urine Negative (Negative); Nitrite Urine Negative (Negative); Urine Blood Negative (Negative); Urine Ketones 15 mg/dL (Negative); Urine Protein Negative (Neg-Trace)
[2024-05-18 10:09] LABS: Amphetamine Screen Urine Not Detected (Not Detect); Barbiturates, Urine Not Detected (Not Detect); Benzodiazepines Screen Urine Not Detected (Not Detect); Buprenorphine Scr Not Detected (Not Detect); Cannabinoid Screen Urine Not Detected (Not Detect); Cocaine Screen Urine POSITIVE (Not Detect); Fentanyl, urine POSITIVE (Not Detect); Methadone Screen, Urine Not Detected (Not Detect); Opiate Screen Urine POSITIVE (Not Detect); Oxycodone Screen Urine Positive (Not Detect); Phencyclidine Screen Urine Not Detected (Not Detect); UPreg QC Valid YES; Urine Pregnancy NEGATIVE (NEGATIVE)
--- NOTE | 2024-05-18 11:25 | MHC.RECOVRN ---
Met with pt in the ED after pt expressed interest in ATS. Pt familiar with t/w from previous consults. Pt reports cocaine use, 1 gram daily x 3 months, IN/INH. Pt tearful during conversation, upset regarding recurrence as well as having feelings of depression. Denies current SI, states If I keep using I am going to feel that way. Pt denies other substance use. Denies cravings for opiates. Pt requesting dual dx admission. Informed pt that she would need to be seen by CARE Team to have BH evaluation, pt agreeable. Pt denies other questions or concerns for t/w. Discussed with ED provider.
--- NOTE | 2024-05-18 12:43 | MHC.CARE ---
Pt was accepted to [facility] for today 05/18/24 by [facility]. The accepting provider is Dr. Cuello. The ETA is 4pm and the address is [address] [place] [id number]. No nurse to nurse is required by the accepting facility. ED RN and CARE team have been notified of placement.
== END 2024-05-18 16:26 | disposition other institution (70) ==
PROVIDERS: Physician Assistant Medical; Emergency Provider Emergency Medicine
DX: F14.10 Cocaine abuse, uncomplicated (principal); F31.9 Bipolar disorder, unspecified; Z11.52 Encounter for screening for COVID-19; J45.909 Unspecified asthma, uncomplicated; F43.10 Post-traumatic stress disorder, unspecified; F19.10 Other psychoactive substance abuse, uncomplicated; F11.20 Opioid dependence, uncomplicated; Z79.82 Long term (current) use of aspirin
CPT/HCPCS: 80053; 80143; 80179; 80307; 81003; 81025; 85025; 87635; 93005; 99285; S9485

== ENCOUNTER → 2024-05-18 09:04 | Outpatient (BNV) | payer OTHER, SELFPAY | PROVIDERS: Emergency Provider Emergency Medicine; Visit Provider Internal Medicine Cardiovascular Disease | DX: F14.90 Cocaine use, unspecified, uncomplicated (principal) | CPT/HCPCS: 93010 ==

== ENCOUNTER 2024-08-14 17:11 | Emergency (ER) | payer OTHER, SELFPAY ==
[2024-08-14 17:37] VITALS: BP 113/77; PULSE 119; RESP 18; TEMP 36.4; O2SAT 95; BMI 20.7
--- NOTE | 2024-08-14 17:39 | ED_ITS ---
HPI - General Adult General Chief complaint: Urogenital-Female Stated complaint: ? UTI Time Seen by Provider: 08/14/24 20:27 Source: patient Mode of arrival: ambulatory Limitations: no limitations History of Present Illness ED Provider: CANDIDA HPI narrative: 49 yo female with PMH of bipolar, PTSD, cocaine abuse, arthritis, PPM, seizure, asthma here with c/o dysuria and urinary frequency mild nausea, no fevers, no vomiting, no back pain. She is eating and drinking. She states she thinks she has a UTI denies discharge and denies itching MD complaint: urinary symptoms Onset (ago): day(s) (2) Location: pelvis Radiation: non-radiation Severity: mild Quality: burning Pain Consistency: intermittent Relieving factors: none Exacerbating factors: other (urination) Associated symptoms: denies other symptoms Treatments prior to arrival: none Related Data Home Medications ?Medication ?Instructions ?Recorded ?Confirmed divalproex 250 mg tablet,delayed 750 mg PO BEDTIME 07/31/23 05/17/24 release divalproex 500 mg tablet,delayed 500 mg PO DAILY 07/31/23 05/17/24 release indomethacin 50 mg capsule 50 mg PO BID 07/31/23 05/17/24 mometasone-formoterol HFA 100 2 puff inhalation BID 07/31/23 05/17/24 mcg-5 mcg/actuation aerosol inhaler (Dulera) vcuphxr-yczihurjotxpi-zepvtded 250 2 tab PO Q6H PRN Migraine Headache 09/21/23 05/17/24 mg-250 mg-65 mg tablet (Excedrin Extra Strength) trazodone 150 mg tablet 150 mg PO BEDTIME 11/11/23 05/17/24 methadone 10 mg/mL oral 10 mg PO QPM 12/23/23 05/17/24 concentrate (Methadone Intensol) oxycodone 5 mg tablet 5 mg PO Q6H 12/23/23 05/17/24 methadone 10 mg/mL oral 15 mg PO QAM 05/17/24 05/17/24 concentrate (Methadone Intensol) Previous Rx's ?Medication ?Instructions ?Recorded nebulizer and compressor (PureAir #1 ea 04/09/21 Mini Nebulizer) levetiracetam 500 mg tablet 500 mg PO BID #1 tab 08/12/23 ondansetron 4 mg disintegrating 4 mg translingual Q6H PRN Nausea 08/12/23 tablet And Vomiting #1 tab Knee scooter #1 ea 09/03/23 duloxetine 20 mg capsule,delayed 20 mg PO DAILY #30 caps 12/26/23 release metoprolol succinate 50 mg 50 mg PO DAILY #90 tabs 05/12/24 tablet,extended release 24 hr nitrofurantoin 100 mg PO BID 7 days #13 caps 08/14/24 monohydrate/macrocrystals 100 mg capsule (Macrobid) Allergies Allergy/AdvReac Type Severity Reaction Status Date / Time amoxicillin [AMOXICILLIN] Allergy Intermediate RASH Verified 08/14/24 17:41 Penicillins [PENICILLINS] Allergy Intermediate RASH Verified 08/14/24 17:41 topiramate [From Topamax] AdvReac Unknown Unknown Verified 08/14/24 17:41 lamictal AdvReac Unknown Unknown Uncoded 05/18/24 08:51 Review of Systems 2 Review of Systems: Constitutional : No Weight loss, No Fever, No Chills ENT/Mouth : No sore throat, No Rhinorrhea Eyes: No Swelling, No Redness Cardiovascular : No Chest Pain, No SOB, NoEdema Respiratory : No Cough, No Sputum, No Wheezing Gastrointestinal : Positive Nausea, no Vomiting, no Diarrhea, no abdominal Pain, No Hematochezia, No Melena Genitourinary : pos Dysuria, pos Urinary Frequency, No Hematuria, No Urgency Musculoskeletal : No joint pain, No Myalgias, No Joint Swelling Skin : No Skin Lesions, No rash Neuro : No Weakness, No Numbness, No Dizziness, No Headache All other systems reviewed and are negative. [facility] Past Medical History Attestation statement: The following information was validated with the patient. Source: old records reviewed Medical History Headache, migraine Cocaine use disorder Opioid use disorder, moderate, in early remission, on maintenance therapy, dependence Bipolar disorder with depression PTSD (post-traumatic stress disorder) Cardiac pacemaker in situ Opioid use disorder Seizure disorder Clavicle fracture Narcotic abuse Seizures Asthma COPD (chronic obstructive pulmonary disease) Surgical History History of ankle surgery (08/05/23) H/O right knee surgery H/O left knee surgery Social History Social History Household Members: Family Household Members Other:: Mother, father, daughter Housing: House Do you presently have visiting nurse or other home services: Yes Alcohol intake: never Patient Tobacco Use Status: Refuse Tobacco use screen Tobacco use type: Cigarette e-Cigarette/Vaping Use: Currently Using Second Hand Smoke Exposure: No Substance Use Type: Crack/Cocaine Advance Directives: Yes Advance Directives on File: Yes Advance Directives Date on File: 09/29/23 Do you have a plan to hurt others: No Plan Patient : No service: No Sexual orientation: Straight/Heterosexual Physical Exam ED Vital Signs: Vital Signs - 24 hr 08/14/24 17:37 08/14/24 20:56 08/14/24 20:58 Temperature 97.5 F 97.5 F 97.5 F Pulse Rate 119 H 119 H 119 H Respiratory Rate 18 18 18 Blood Pressure 113/77 113/77 113/77 Pulse Oximetry 95 95 95 Oxygen Delivery Method Room Air Room Air Room Air BMI result Body Mass Index 20.7 Appearance: Alert. Oriented X3. No acute distress. Eyes: Pupils equal, round and reactive to light. ENT: Pharynx normal. Neck: Normal inspection. Neck supple. CVS: Normal heart rate and rhythm. Pulses normal. Respiratory: No respiratory distress. Breath sounds normal. Abdomen: Soft and nontender. no CVA ttp Skin: Skin warm and dry. Normal skin color. Extremities: No lower extremity edema. Neuro: Oriented X 3. No motor deficit. No sensory deficit. CN2-12 intact Course Course Course Narrative: RME; 49-year-old female presents to the ED for dysuria slight blood. Patient denies any abdominal pain nausea vomiting or flank pain fever or chills. U hCG ordered. Medications Administered Discontinued Medications Generic Name Dose Route Start Last Admin Trade Name Freq PRN Reason Stop Dose Admin Nitrofurantoin Macrocrystals 100 mg 08/14/24 20:42 08/14/24 20:55 Nitrofurantoin Monohyd/M-Cryst 100 Mg Capsule PO 08/14/24 20:43 100 mg ONCE ONE Administration Medical Decision Making Medical Decision Making MDM Narrative: 49 yo female with PMH of bipolar, PTSD, cocaine abuse, arthritis, PPM, seizure, asthma here with c/o dysuria at this time suspect UTI denies discharge eating a ham sandwhich on my arrival, afebrile and no CVA doubt stone at this time will obtain basic labs and UA - prior E. Coli S to macrobid. Differential Diagnosis Differential Diagnoses: The differential diagnosis associated with the presentation includes UTI, vaginitis Admission/Observation Consideration of admission/observation: Escalation of care including admission/observation considered not toxic, eating food Lab Data MDM Lab Attestation statement: I reviewed the patient's lab results. 08/14/24 17:58 08/14/24 17:58 Labs: Lab Results 08/14/24 08/14/24 Range/Units 17:58 20:26 WBC 4.6 L (4.8-10.8) X10*3/uL RBC 4.39 (4.20-5.50) X10*6/uL Hgb 12.7 (12.0-16.0) g/dl Hct 37.8 (37.0-47.0) % MCV 86.1 (80.0-98.0) fL MCH 28.9 (27.0-33.0) pg MCHC 33.6 (31.0-35.0) g/dl RDW 13.4 (11.0-16.0) % Plt Count 159 L D (160-400) X10*3/uL MPV 11.0 (9.4-12.3) fL Immature Gran % (Auto) 0.2 (0.0-0.4) % Neut % (Auto) 55.2 (45-73) % Lymph % (Auto) 36.7 (20-40) % [place] % (Auto) 6.5 (2-11) % Eos % (Auto) 0.7 (0-4) % Baso % (Auto) 0.7 (0-2) % Lymph # (Auto) 1.7 (1.2-4.9) X10*3/uL [place] # (Auto) 0.3 (0.1-1.2) X10*3/uL Eos # (Auto) 0.0 (0.0-0.4) X10*3/uL Baso # (Auto) 0.0 (0.0-0.2) X10*3/uL Abs Immat Gran (auto) 0.01 (0.00-0.03) X10*3/uL Absolute Neuts (auto) 2.6 (2.0-8.3) x10*3/uL Absolute Nucleated RBC 0.000 (0.0-0.012) X10*3/uL Nucleated RBC % (auto) 0.0 (0.0-0.2) /100WBC Sodium 140 (135-145) mmol/L Potassium 4.7 (3.3-5.1) mmol/L Chloride 104 (96-108) mmol/L Carbon Dioxide 26 (22-29) mmol/L Anion Gap 15 (12-20) BUN 25 H (9-16) mg/dL Creatinine 0.99 (0.5-1.4) mg/dL Estim Creat Clear Calc 75.0 Estimated GFR 60 Random Glucose 92 (60-115) mg/dL Calcium 9.6 (8.4-10.2) mg/dL Total Bilirubin 0.4 (0.0-1.0) mg/dL AST 82 H (5-31) U/L ALT 80 H (0-31) U/L Alkaline Phosphatase 76 (39-117) U/L Total Protein 6.9 (6.5-8.0) g/dL Albumin 3.9 (3.5-5.0) g/dL Urine Color Dark Yellow Urine Appearance Cloudy Urine pH 5.5 (5.0-9.0) Ur Specific [place] >= 1.030 H (1.005-1.025) Urine Protein 30 (1+) H (Neg-Trace) mg/dL Urine Glucose (UA) Negative (Negative) mg/dL Urine Ketones Trace (Negative) mg/dL Urine Blood Negative (Negative) Urine Nitrite Negative (Negative) Ur Leukocyte Esterase Trace H (Negative) Urine RBC 0-2 (0-2) /HPF Urine WBC 6-10 (0-5) /HPF Ur Squamous Epith Cells 11-20 (0-2) /HPF Urine Bacteria 2+ (None Seen) Hyaline Casts 6-10 (0-2) /LPF Urine Test NEGATIVE (NEGATIVE) External Record Review External record reviewed: Outpatient record Prescription Management I considered prescription management with: Antibiotic Discharge Plan Discharge Clinical Impression: Cystitis Patient Disposition: Home, Self-Care Instructions: Urinary Tract Infection in Women (ED) Additional Instructions: return for fevers, vomiting, unable to eat or drink, worsening symptoms or any other concerns. Prescriptions: New nitrofurantoin monohyd/m-cryst [Macrobid] 100 mg capsule 100 mg PO BID 7 Days Qty: 13 0RF Rx Instructions: must administer with a meal/food No Action metoprolol succinate 50 mg tablet extended release 24 hr 50 mg PO DAILY Qty: 90 3RF (DME) nebulizer and compressor [PureAir Mini Nebulizer] Device See Rx Instructions .Route Qty: 1 0RF Rx Instructions: As directed oxycodone 5 mg tablet 5 mg PO Q6H methadone [Methadone Intensol] 10 mg/mL Concentrate 10 mg PO QPM duloxetine 20 mg Capsule,Delayed Release(Dr/Ec) 20 mg PO DAILY Qty: 30 0RF methadone [Methadone Intensol] 10 mg/mL concentrate 15 mg PO QAM divalproex 250 mg tablet,delayed release (DR/EC) 750 mg PO BEDTIME divalproex 500 mg tablet,delayed release (DR/EC) 500 mg PO DAILY indomethacin 50 mg capsule 50 mg PO BID Dulera 100-5 mcg/actuation HFA aerosol inhaler 2 puff inhalation BID levetiracetam 500 mg Tablet 500 mg PO BID Qty: 1 0RF ondansetron 4 mg Tablet,Disintegrating 4 mg translingual Q6H PRN (Reason: Nausea And Vomiting) Qty: 1 0RF Excedrin Extra Strength 250-250-65 mg Tablet 2 tab PO Q6H PRN (Reason: Migraine Headache) trazodone 150 mg tablet 150 mg PO BEDTIME (DME) Knee scooter See Rx Instructions .ROUTE .MEDSUPPLY Qty: 1 0RF Rx Instructions: As directed Interventions: ED Discharge Assessment Last Done: 08/14/24 20:58 Discharge Date/Time: 08/14/24 20:59 Print Language: Andorran
[2024-08-14 18:03] LABS: MANUAL DIFF FLAG NO
[2024-08-14 18:06] LABS: Basophils Percent Auto 0.7 % (0-2); Eosinophils Percent Auto 0.7 % (0-4); Hematocrit 37.8 % (37.0-47.0); Hemoglobin 12.7 g/dl (12.0-16.0); Imm Gran Abs Auto 0.01 X10*3/uL (0.00-0.03); Imm Gran Pct Auto 0.2 % (0.0-0.4); Lymphocytes Absolute Auto 1.7 X10*3/uL (1.2-4.9); Lymphocytes Percent Auto 36.7 % (20-40); Mean Corpuscular HGB Conc 33.6 g/dl (31.0-35.0); Mean Corpuscular Hemoglobin 28.9 pg (27.0-33.0); Mean Corpuscular Volume 86.1 fL (80.0-98.0); Monocytes Absolute Auto 0.3 X10*3/uL (0.1-1.2); Monocytes Percent Auto 6.5 % (2-11); Neutrophils Absolute Auto 2.6 x10*3/uL (2.0-8.3); Neutrophils Percent Auto 55.2 % (45-73); Platelet Count 159 X10*3/uL (160-400); Red Blood Count 4.39 X10*6/uL (4.20-5.50); Red Cell Distribution Width 13.4 % (11.0-16.0); White Blood Count 4.6 X10*3/uL (4.8-10.8)
[2024-08-14 18:20] LABS: Alanine Aminotransferase 80 U/L (0-31); Albumin Level 3.9 g/dL (3.5-5.0); Anion Gap 15 (12-20); Aspartate Amino Transferase 82 U/L (5-31); Bilirubin Total 0.4 mg/dL (0.0-1.0); Blood Urea Nitrogen 25 mg/dL (9-16); Calcium 9.6 mg/dL (8.4-10.2); Carbon Dioxide 26 mmol/L (22-29); Chloride 104 mmol/L (96-108); Estimated Glomerular Filt Rate 60; Glucose Random 92 mg/dL (60-115); Potassium 4.7 mmol/L (3.3-5.1); Sodium 140 mmol/L (135-145); Total Protein 6.9 g/dL (6.5-8.0)
[2024-08-14 18:41] LABS: Alkaline Phosphatase 76 U/L (39-117)
[2024-08-14 20:35] LABS: Appearance Urine Cloudy; Color Urine Dark Yellow; Glucose Urine UA Negative (Negative); Leukocyte Esterase Urine Trace (Negative); Nitrite Urine Negative (Negative); PH 5.5 (5.0-9.0); Specific Gravity - Urine >= 1.030 (1.005-1.025); UMIC TRIGGER UACC YES; Urine Blood Negative (Negative); Urine Ketones Trace mg/dL (Negative); Urine Protein 30 (1+) mg/dL (Neg-Trace)
[2024-08-14 20:36] LABS: UPreg QC Valid YES; Urine Pregnancy NEGATIVE (NEGATIVE)
[2024-08-14 20:45] LABS: Bacteria Urine 2+ (None Seen); RBC Urine 0-2 /HPF (0-2); UACC Culture Trigger YES
[2024-08-14] MEDS: Nitrofurantoin Monohyd/M-Cryst 100 MG CAPSULE PO (20:55)
[2024-08-14 20:56] VITALS: BP 113/77; PULSE 119; RESP 18; TEMP 36.4; O2SAT 95
[2024-08-14 20:58] VITALS: BP 113/77; PULSE 119; RESP 18; TEMP 36.4; O2SAT 95
== END 2024-08-14 20:59 | disposition home or self-care (01) ==
PROVIDERS: Physician Assistant; Emergency Provider Emergency Medicine; PCP Internal Medicine
DX: N30.90 Cystitis, unspecified without hematuria (principal); R35.0 Frequency of micturition; R30.0 Dysuria; R11.0 Nausea; F17.210 Nicotine dependence, cigarettes, uncomplicated; Z79.899 Other long term (current) drug therapy
CPT/HCPCS: 36415; 80053; 81001; 81025; 85025; 87086; 99283

== ENCOUNTER 2024-08-28 01:48 | Emergency (ER) | payer OTHER, SELFPAY ==
[2024-08-28 02:01] VITALS: BP 120/65; BP 120/78; PULSE 67; PULSE 85; RESP 18; TEMP 36.4; O2SAT 99; BMI 20.3
--- NOTE | 2024-08-28 05:30 | ED_ITS ---
HPI - General Adult General Chief complaint: General Medical Stated complaint: COLD Time Seen by Provider: 08/28/24 05:27 Source: patient Mode of arrival: ambulatory Limitations: no limitations History of Present Illness ED Provider: HPI narrative: Patient's history of substance abuse using cocaine earlier today was outside in cold for last 5 hours comes here because as she feeling cold and wet in her feet no open wound Related Data Home Medications ?Medication ?Instructions ?Recorded ?Confirmed divalproex 250 mg tablet,delayed 750 mg PO BEDTIME 07/31/23 05/17/24 release divalproex 500 mg tablet,delayed 500 mg PO DAILY 07/31/23 05/17/24 release indomethacin 50 mg capsule 50 mg PO BID 07/31/23 05/17/24 mometasone-formoterol HFA 100 2 puff inhalation BID 07/31/23 05/17/24 mcg-5 mcg/actuation aerosol inhaler (Dulera) ggsycea-zcqrbubublibg-ugipnpze 250 2 tab PO Q6H PRN Migraine Headache 09/21/23 05/17/24 mg-250 mg-65 mg tablet (Excedrin Extra Strength) trazodone 150 mg tablet 150 mg PO BEDTIME 11/11/23 05/17/24 methadone 10 mg/mL oral 10 mg PO QPM 12/23/23 05/17/24 concentrate (Methadone Intensol) oxycodone 5 mg tablet 5 mg PO Q6H 12/23/23 05/17/24 methadone 10 mg/mL oral 15 mg PO QAM 05/17/24 05/17/24 concentrate (Methadone Intensol) Previous Rx's ?Medication ?Instructions ?Recorded nebulizer and compressor (PureAir #1 ea 04/09/21 Mini Nebulizer) levetiracetam 500 mg tablet 500 mg PO BID #1 tab 08/12/23 ondansetron 4 mg disintegrating 4 mg translingual Q6H PRN Nausea 08/12/23 tablet And Vomiting #1 tab Knee scooter #1 ea 09/03/23 duloxetine 20 mg capsule,delayed 20 mg PO DAILY #30 caps 12/26/23 release metoprolol succinate 50 mg 50 mg PO DAILY #90 tabs 05/12/24 tablet,extended release 24 hr nitrofurantoin 100 mg PO BID 7 days #13 caps 02/02/25 monohydrate/macrocrystals 100 mg capsule (Macrobid) Allergies Allergy/AdvReac Type Severity Reaction Status Date / Time amoxicillin [AMOXICILLIN] Allergy Intermediate RASH Verified 08/28/24 02:04 Penicillins [PENICILLINS] Allergy Intermediate RASH Verified 08/28/24 02:04 topiramate [From Topamax] AdvReac Unknown Unknown Verified 08/28/24 02:04 lamictal AdvReac Unknown Unknown Uncoded 08/28/24 02:04 Review of Systems Review of Systems: Yes all other systems are reviewed and are negative [facility] Past Medical History Medical History Headache, migraine Cocaine use disorder Opioid use disorder, moderate, in early remission, on maintenance therapy, dependence Bipolar disorder with depression PTSD (post-traumatic stress disorder) Cardiac pacemaker in situ Opioid use disorder Seizure disorder Clavicle fracture Narcotic abuse Seizures Asthma COPD (chronic obstructive pulmonary disease) Surgical History History of ankle surgery (08/05/23) H/O right knee surgery H/O left knee surgery Social History Social History Household Members: Family Household Members Other:: Mother, father, daughter Housing: House Do you presently have visiting nurse or other home services: Yes Alcohol intake: never Patient Tobacco Use Status: Refuse Tobacco use screen Tobacco use type: Cigarette e-Cigarette/Vaping Use: Currently Using Second Hand Smoke Exposure: No Substance Use Type: Crack/Cocaine Advance Directives: Yes Advance Directives on File: Yes Advance Directives Date on File: 09/29/23 service: No Sexual orientation: Straight/Heterosexual Physical Exam ED Vital Signs: Vital Signs - 24 hr 08/28/24 02:01 08/28/24 06:23 Temperature 97.5 F 97.5 F Pulse Rate 85 85 Respiratory Rate 18 18 Blood Pressure 120/65 120/65 Pulse Oximetry 99 99 Oxygen Delivery Method Room Air Room Air BMI result Body Mass Index 20.3 Appearance: Alert. Oriented X3. No acute distress. Eyes: PERRLA, No Nystagmus ENT: Pharynx normal. Oral Mucosa moist Neck: Normal inspection. Neck supple. CVS: Normal heart rate and rhythm. Pulses normal. Respiratory: No respiratory distress. Equal air entry bilateral, no wheezing/rales/rhonchi Abdomen: Soft and nontender. Bowel sounds are present, no mass palpable, no CVA tenderness Skin: Skin warm and dry. Normal skin color. Normal skin turgor. Extremities: No lower extremity edema. No calf tenderness 2+ dorsalis pedis no open wound Neuro: Oriented X 3. No motor deficit. No sensory deficit.No cerebellar signs , cranial nerves II-XII intact Discharge Plan Discharge Clinical Impression: Cocaine use disorder, Cold feet Patient Disposition: Home, Self-Care Instructions: Cocaine Abuse (ED) Additional Instructions: Stop using drugs Prescriptions: No Action metoprolol succinate 50 mg tablet extended release 24 hr 50 mg PO DAILY Qty: 90 3RF (DME) nebulizer and compressor [PureAir Mini Nebulizer] Device See Rx Instructions .Route Qty: 1 0RF Rx Instructions: As directed oxycodone 5 mg tablet 5 mg PO Q6H methadone [Methadone Intensol] 10 mg/mL Concentrate 10 mg PO QPM duloxetine 20 mg Capsule,Delayed Release(Dr/Ec) 20 mg PO DAILY Qty: 30 0RF methadone [Methadone Intensol] 10 mg/mL concentrate 15 mg PO QAM nitrofurantoin monohyd/m-cryst [Macrobid] 100 mg capsule 100 mg PO BID 7 Days Qty: 13 0RF Rx Instructions: must administer with a meal/food divalproex 250 mg tablet,delayed release (DR/EC) 750 mg PO BEDTIME divalproex 500 mg tablet,delayed release (DR/EC) 500 mg PO DAILY indomethacin 50 mg capsule 50 mg PO BID Dulera 100-5 mcg/actuation HFA aerosol inhaler 2 puff inhalation BID levetiracetam 500 mg Tablet 500 mg PO BID Qty: 1 0RF ondansetron 4 mg Tablet,Disintegrating 4 mg translingual Q6H PRN (Reason: Nausea And Vomiting) Qty: 1 0RF Excedrin Extra Strength 250-250-65 mg Tablet 2 tab PO Q6H PRN (Reason: Migraine Headache) trazodone 150 mg tablet 150 mg PO BEDTIME (DME) Knee scooter See Rx Instructions .ROUTE .MEDSUPPLY Qty: 1 0RF Rx Instructions: As directed Interventions: ED Discharge Assessment Last Done: 08/28/24 06:23 Discharge Date/Time: 08/28/24 06:23 Print Language: Citizen [place]
[2024-08-28 06:23] VITALS: BP 120/65; PULSE 85; RESP 18; TEMP 36.4; O2SAT 99
== END 2024-08-28 06:23 | disposition home or self-care (01) ==
PROVIDERS: Emergency Provider Internal Medicine; PCP Internal Medicine
DX: F14.10 Cocaine abuse, uncomplicated (principal); Z79.899 Other long term (current) drug therapy
CPT/HCPCS: 99282

== ENCOUNTER 2024-09-05 08:57 | Emergency (ER) | payer OTHER, SELFPAY ==
--- NOTE | ~2024-09-05 | CT_ITS ---
EXAMINATION: CT HEAD AND MAXILLOFACIAL BONES WITHOUT CONTRAST CLINICAL INFORMATION: Right eye pain, trauma COMPARISON: None TECHNIQUE: Contiguous axial imaging was performed from the skull base to vertex, as well as the maxillofacial bones and mandible without intravenous administration of contrast. Multiplanar reformatted imaging was constructed from the axial data set. This CT examination was performed using dose optimization techniques as appropriate, variously including the following: *Automated exposure control *Adjustment of mA and/or kV according to patient size (this includes techniques or standardized protocols for targeted exams where dose is matched to indication/reason for exam; i.e. extremities or head) *Use of iterative reconstruction technique FINDINGS: CT HEAD: There is no evidence of intracranial hemorrhage or extra-axial fluid collection. There is no mass effect, or edema. No CT evidence of acute territorial infarct. Ventricles, sulci, and cisterns are normal in size and configuration for patient age. No hydrocephalus. No midline shift. Negative hyperdense MCA sign. Negative insular ribbon sign. Patchy periventricular and deep white matter hypoattenuation is consistent with mild to moderate small vessel ischemic changes. Normal pituitary. Mild atheromatous calcification of the bilateral carotid siphons and V4 segments vertebral arteries bilaterally. No extracranial soft tissue abnormalities. The calvarium and skull base are intact. CT MAXILLOFACIAL BONES: Limited by motion artifact. The paranasal sinuses, mastoid air cells, and tympanic cavities are normally aerated. Orbits are intact allowing for motion. Globes and orbital contents image normally. Lenses are appropriately located. There are age-indeterminate nondisplaced bilateral nasal bone fractures, as well as a nasal process fracture. No additional fractures identified. Mandible and TM joints are intact. There are moderate degenerative TM joint changes. The patient is edentulous. Facial soft tissues demonstrate no discrete abnormalities. CT/CT facial bones wo IV con IMPRESSION: 1. No acute intracranial abnormality. No calvarial or skull base fracture. 2. Maxillofacial bone examination limited by motion artifact. Age-indeterminate bilateral nasal bone fractures are present. There is an age indeterminant nasal process fracture. There is no orbital fracture. Electronically signed by: Brennan Cook MD 09/05/2024 11:38 AM [facility]
--- NOTE | ~2024-09-05 | CT_ITS ---
EXAMINATION: CT HEAD AND MAXILLOFACIAL BONES WITHOUT CONTRAST CLINICAL INFORMATION: Right eye pain, trauma COMPARISON: None TECHNIQUE: Contiguous axial imaging was performed from the skull base to vertex, as well as the maxillofacial bones and mandible without intravenous administration of contrast. Multiplanar reformatted imaging was constructed from the axial data set. This CT examination was performed using dose optimization techniques as appropriate, variously including the following: *Automated exposure control *Adjustment of mA and/or kV according to patient size (this includes techniques or standardized protocols for targeted exams where dose is matched to indication/reason for exam; i.e. extremities or head) *Use of iterative reconstruction technique FINDINGS: CT HEAD: There is no evidence of intracranial hemorrhage or extra-axial fluid collection. There is no mass effect, or edema. No CT evidence of acute territorial infarct. Ventricles, sulci, and cisterns are normal in size and configuration for patient age. No hydrocephalus. No midline shift. Negative hyperdense MCA sign. Negative insular ribbon sign. Patchy periventricular and deep white matter hypoattenuation is consistent with mild to moderate small vessel ischemic changes. Normal pituitary. Mild atheromatous calcification of the bilateral carotid siphons and V4 segments vertebral arteries bilaterally. No extracranial soft tissue abnormalities. The calvarium and skull base are intact. CT MAXILLOFACIAL BONES: Limited by motion artifact. The paranasal sinuses, mastoid air cells, and tympanic cavities are normally aerated. Orbits are intact allowing for motion. Globes and orbital contents image normally. Lenses are appropriately located. There are age-indeterminate nondisplaced bilateral nasal bone fractures, as well as a nasal process fracture. No additional fractures identified. Mandible and TM joints are intact. There are moderate degenerative TM joint changes. The patient is edentulous. Facial soft tissues demonstrate no discrete abnormalities. CT/CT head/brain wo IV con IMPRESSION: 1. No acute intracranial abnormality. No calvarial or skull base fracture. 2. Maxillofacial bone examination limited by motion artifact. Age-indeterminate bilateral nasal bone fractures are present. There is an age indeterminant nasal process fracture. There is no orbital fracture. Electronically signed by: Brennan Cook MD 09/05/2024 11:38 AM [facility]
--- NOTE | ~2024-09-05 | CT_ITS ---
EXAMINATION: CT CERVICAL SPINE WITHOUT IV CONTRAST HISTORY: head injury, pain. TECHNIQUE: Helical CT of the cervical spine was performed per standard departmental protocol. Coronal and sagittal reformatted images were also evaluated. One or more of the following techniques was used for dose reduction: Automated exposure control, adjustment of the mA and/or kV according to patient size, use of iterative reconstruction technique. DLP: 337.25 mGy-cm COMPARISON: Comparison is made with the prior examination dated 07/31/2023. FINDINGS: CERVICAL SPINE: Osseous mineralization is normal. The vertebral bodies maintain normal height without evidence of fracture or subluxation. There is mild reversal of the normal cervical lordosis as seen previously. There is moderate degenerative disc disease at the C5-6 level with disc space narrowing and osteophyte formation. Evaluation for disc pathology is limited by lack of intrathecal contrast material. BRAIN: The visualized portion of the brain is unremarkable. SINUSES: The visualized paranasal sinuses, mastoid air cells and middle ear cavities are unremarkable. LUNG APICES: The visualized lung apices are clear. SOFT TISSUES: The visualized paraspinal soft tissues are unremarkable. CT/CT cervical spine wo IV con IMPRESSION: Mild reversal of the normal cervical lordosis as seen previously. Moderate degenerative disc disease at C5-6. No evidence of fracture or subluxation. Electronically signed by: Kavin Kennedy MD 09/05/2024 11:49 AM EST
[2024-09-05 09:03] VITALS: BP 110/72; PULSE 92; O2SAT 98
[2024-09-05 09:05] VITALS: BP 110/56; PULSE 91; RESP 17; TEMP 36.7; O2SAT 99
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
[2024-09-05 09:28] VITALS: BMI 22.4
--- OUTSIDE RECORDS SUMMARY | 2024-09-05 10:37 | XMS_ITS ---
Author Organization [facility] Address [address] [place] [phone] Care Team Providers Care Screw Cutter Name Role Phone Magen Lantigua Primary Care Provider [phone] REASON FOR VISIT Refills Medications Medication SIG (Take, Route, Frequency, Duration) Notes Start Date End Date Status OxyCODONE Hydrochloride 10 mg 1 tab(s) orally every 6 hours for 14 days on or after 09/02/24 Partial Fill upon Patient Request 09/01/2024 Active Social History Sex Assigned At : Social History Observation Description Sex Assigned At Female Encounters Encounter Location Date Provider Diagnosis [address] [phone] 09/01/2024 Magen Lantigua Chronic pain syndrome G89.4 Assessments Encounter Date Diagnosis (ICD Code) Assessment Notes Treatment Notes Treatment Clinical Notes 09/01/2024 Chronic pain syndrome (ICD-10 - G89.4) Followed by endocrine Plan Of Treatment Medication Medication Name Sig Start Date Stop Date Notes OxyCODONE Hydrochloride 5 mg 2 tabs orally every 6 hours; for 07/07/24 07/04/2024 Partial Fill upon Patient Request OxyCODONE Hydrochloride 10 mg 1 tab(s) orally every 6 hours for 14 days 09/01/2024 Partial Fill upon Patient Request Next Appt Details Provider Name:Laila Molina, 09/16/2024 10:00:00 AM, [address] [place] [address], [phone], Provider Name:Magen Lantigua, 09/16/2024 10:20:00 AM, [address] [place] [address], [phone], Progress Notes * Ld MOSLEY BDOB:1975 (49 yo F)Acc No.[id number]:09/01/2024 Patient:Ld WOO :1975???Age:49 Y???Sex:Female Address:[address] [place] [address], [id number] * Refills? Stop OxyCODONE Hydrochloride tablet, 5 mg, orally, 2 tabs, every 6 hours; for 07/07/24 Refill OxyCODONE Hydrochloride tablet, 10 mg, orally, 56 Tablet, 1 tab(s), every 6 hours, 14 days, Refills=0 * true * Date:? Generated for Albina severino/Noemy/Moesmitting on:?09/05/2024 10:36 AM EST
--- OUTSIDE RECORDS SUMMARY | 2024-09-05 10:37 | XMS_ITS | Encounter Summary ---
Author Organization [facility] Address [address] [place] [address] Care Team Providers Care Supervisor Dock Name Role Phone Unavailable Primary Care Provider Unavailabl e Encounter Details Date Type Department Care Team (Late st Contact Info) Description 06/10/2024 Lab Requisition [facility] - Main Lab [address] [facility] [place] [address] Magen Lantigua MD [address] [place], [place] Prediabetes; Chronic pain syndrome Social History Tobacco Use Types Packs/Day Years Used Date Smoking Tobacco: Never Assessed Comments Unknown Sex and Gender Information Value Date Recorded Sex Assigned at Not on file Legal Sex Female 1:40 AM EST Gender Identity Not on file Sexual Orientation Not on file documented as of this encounter Plan of Treatment Not on file documented as of this encounter Procedures Procedure Name Priority Date/Time Associated Diagnosis Comments SST - GOLD Routine 06/10/2024 1:30 PM EST Prediabetes Chronic pain syndrome LIPID PANEL WITH REFLEX TO DIRECT LDL Routine 06/10/2024 1:30 PM EST Prediabetes Chronic pain syndrome HEMOGLOBIN A1C Routine 06/10/2024 1:30 PM EST Prediabetes Chronic pain syndrome GLUCOSE, RANDOM Routine 06/10/2024 1:30 PM EST Prediabetes Chronic pain syndrome VALPROIC ACID LEVEL, TOTAL Routine 06/10/2024 1:30 PM EST Prediabetes Chronic pain syndrome documented in this encounter Results * SST tube (06/10/2024 1:30 PM EST) [facility] Extra Tube Hold for add-ons. 06/10/2024 7:01 PM EST [facility] Comment:Auto resulted. Blood Venous blood specimen / Unknown 06/10/2024 1:30 PM EST 06/10/2024 5:16 PM EST Magen Lantigua MD LAB BLOOD ORDERABLES Final Re sult Performing Organization Address [facility]/ZIP Co de Phone Number [facility] [address] [place] [address], [place] [phone] * (ABNORMAL) Glucose, random (06/10/2024 1:30 PM EST) [facility] Glucose 118(H) 70 - 100 mg/dL LAB CHEMISTRY METHOD 06/10/2024 5:33 PM EST [facility] Blood Venous blood specimen / Unknown 06/10/2024 1:30 PM EST 06/10/2024 5:16 PM EST Magen Lantigua MD LAB BLOOD ORDERABLES Final Re sult Performing Organization Address [facility] Co de Phone Number [facility] [address] [place] [address], [place] [phone] * Lipid panel with reflex to direct LDL (06/10/2024 1:30 PM EST) [facility] Cholesterol 192 0 - 200 mg/dL LAB CHEMISTRY METHOD 06/10/2024 5:50 PM EST [facility] Triglycerides 61 0 - 150 mg/dL LAB CHEMISTRY METHOD 06/10/2024 5:50 PM EST [facility] HDL 91 >=40 mg/dL LAB CHEMISTRY METHOD 06/10/2024 5:50 PM EST [facility] LDL Calculated 89 0 - 100 mg/dL LAB CHEMISTRY METHOD 06/10/2024 5:50 PM EST [facility] VLDL Cholesterol Faiban 12.2 mg/dL LAB CHEMISTRY METHOD 06/10/2024 5:50 PM EST [facility] Non HDL Chol. (LDL+VLDL) 101 <145 mg/dL LAB CHEMISTRY METHOD 06/10/2024 5:50 PM EST [facility] Chol/HDL Ratio 2.1 0.0 - 4.4 LAB CHEMISTRY METHOD 06/10/2024 5:50 PM EST [facility] Blood Venous blood specimen / Unknown 06/10/2024 1:30 PM EST 06/10/2024 5:16 PM EST Magen Lantigua MD LAB BLOOD ORDERABLES Final Re sult Performing Organization Address [facility]/ZIP Co de Phone Number [facility] [address] [place] [address], [place] [phone] * Hemoglobin A1c (06/10/2024 1:30 PM EST) Hemoglobin A1C 4.8 <6.5 % LAB CHEMISTRY METHOD 06/12/2024 11:38 AM EST [facility] Mean Bld Glu Estim. 91 mg/dL LAB CHEMISTRY METHOD 06/12/2024 11:38 AM [facility] Blood Venous blood specimen / Unknown 06/10/2024 1:30 PM EST 06/10/2024 5:16 PM EST Magen Lantigua MD LAB BLOOD ORDERABLES Final Re sult [facility] [address] [place] [address], [place] [phone] * Valproic acid level, total (06/10/2024 1:30 PM EST) Valproic Acid, Total 72 50 - 100 mcg/mL LAB CHEMISTRY METHOD 06/10/2024 5:33 PM EST [facility] Blood Venous blood specimen / Unknown 06/10/2024 1:30 PM EST 06/10/2024 5:16 PM EST us Magen Lantigua MD LAB BLOOD ORDERABLES Final Re sult [facility] [address] [place] [address], documented in this encounter Visit Diagnoses Diagnosis Prediabetes Other abnormal glucose Chronic pain syndrome documented in this encounter
--- OUTSIDE RECORDS SUMMARY | 2024-09-05 10:37 | XMS_ITS | Clinical Summary ---
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 Name Role Phone Unavailable Primary Care Provider Unavailabl e Encounters Date Type Department Care Team Description 06/10/2024 Lab Requisition [facility] - Main Lab [address] [facility] [place] [address] Magen Lantigua MD Prediabetes; Chronic pain syndrome from Last 3 Months Social History Tobacco Use Types Packs/Day Years Used Date Smoking Tobacco: Never Assessed Comments Unknown Sex and Gender Information Value Date Recorded Sex Assigned at Not on file Legal Sex Female 1:40 AM EST Gender Identity Not on file Sexual Orientation Not on file Last Filed Vital Signs Vital Sign Reading Time Taken Comments Blood Pressure 110/72 03/16/2024 3:24 PM EDT Pulse 63 03/16/2024 3:24 PM EDT Temperature - - Respiratory Rate - - Oxygen Saturation - - Inhaled Oxygen Concentration - - Weight 74.6 kg (164 lb 8 oz) 03/16/2024 3:24 PM EDT Height 182.9 cm (6') 03/16/2024 3:24 PM EDT Body Mass Index 22.31 03/16/2024 3:24 PM EDT Plan of Treatment Health Maintenance Due Date Last Done Comments DTaP,Tdap,and Td Vaccines (1 - Tdap) 1994 Hepatitis B Vaccines (1 of 3 - 19+ 3-dose series) 1994 Cervical Cancer Screening: P ap Smear 01/18/1996 Breast Cancer Screening 04/21/2021 04/21/2019 Colorectal Cancer Screening: Colonoscopy 06/15/2022 Depression Screening 06/15/2022 HIV Screening 06/15/2022 Hepatitis C Screening 06/15/2022 Medicare Annual Wellness Visit 06/15/2022 Social Influencers of Health Screening 06/15/2022 COVID-19 Vaccine (1 - 2023-2 5 season) 2024 Influenza Vaccine (#1) 2024 Cholesterol Screening (Lipid Panel) 06/10/2029 06/10/2024 HIB Vaccines Aged Out No longer eligi ble based on patient's age to complete this topic HPV Vaccines Aged Out No longer eligi ble based on patient's age to complete this topic Hepatitis A Vaccines Aged Out No long er eligible based on patient's age to complete this topic IPV Vaccines Aged Out No longer eligi ble based on patient's age to complete this topic MMR Vaccines Aged Out No longer eligi ble based on patient's age to complete this topic Meningococcal ACWY Vaccine Aged Out N o longer eligible based on patient's age to complete this topic Meningococcal B Vacine Aged Out No lo nger eligible based on patient's age to complete this topic Pneumococcal Vaccine: Pediat rics (0 to 5 Years) and At-Risk Patients (6 to 64 Years) Aged Out No longer eligi ble based on patient's age to complete this topic RSV Immunization Patients Un link 20 months Aged Out No longer eligible b ased on patient's age to complete this topic Varicella Vaccines Aged Out No longer eligible based on patient's age to complete this topic Procedures Procedure Name Priority Date/Time Associated Diagnosis [...] 1:30 PM EST Prediabetes Chronic pain syndrome MARISELA SCREENING DIGITAL Routine 04/21/2019 10:45 AM EDT Encounter for screening mammogram for malignant neoplasm of breast from Last 3 Months or Most Recently Relevant to Health Maintenance Results * SST tube (06/10/2024 1:30 PM EST) Extra Tube Hold for add-ons. 06/10/2024 7:01 PM EST [facility] Comment:Auto resulted. Blood Venous blood specimen / Unknown 06/10/2024 1:30 PM EST 06/10/2024 5:16 PM EST us Magen Lantigua MD LAB BLOOD ORDERABLES Final Re sult [facility] [address] [place] [address], [place] [phone] * Lipid panel with reflex to direct LDL (06/10/2024 1:30 PM EST) Cholesterol 192 0 - 200 mg/dL LAB CHEMISTRY METHOD 06/10/2024 5:50 PM [facility] Triglycerides 61 0 - 150 mg/dL LAB CHEMISTRY METHOD 06/10/2024 5:50 PM [facility] HDL 91 >=40 mg/dL LAB CHEMISTRY METHOD 06/10/2024 5:50 PM [facility] LDL Calculated 89 0 - 100 mg/dL LAB CHEMISTRY METHOD 06/10/2024 5:50 PM [facility] VLDL Cholesterol Fabian 12.2 mg/dL LAB CHEMISTRY METHOD 06/10/2024 5:50 PM [facility] Non HDL Chol. (LDL+VLDL) 101 <145 mg/dL LAB CHEMISTRY METHOD 06/10/2024 5:50 PM [facility] Chol/HDL Ratio 2.1 0.0 - 4.4 LAB CHEMISTRY METHOD 06/10/2024 5:50 PM [facility] Blood Venous blood specimen / Unknown 06/10/2024 1:30 PM EST 06/10/2024 5:16 PM EST Magen Lantigua MD LAB BLOOD ORDERABLES Final Re sult Performing Organization Address [facility]/ZIP Co de Phone Number [facility] [address] [place] [address], [place] [phone] * Hemoglobin A1c (06/10/2024 1:30 PM EST) [facility] Hemoglobin A1C 4.8 <6.5 % LAB CHEMISTRY METHOD 06/12/2024 11:38 AM EST [facility] Mean Bld Glu Estim. 91 mg/dL LAB CHEMISTRY METHOD 06/12/2024 11:38 AM EST [facility] Blood Venous blood specimen / Unknown 06/10/2024 1:30 PM EST 06/10/2024 5:16 PM EST Magen Lantigua MD LAB BLOOD ORDERABLES Final Re sult Performing Organization Address [facility] Co de Phone Number [facility] [address] [place] [address], [place] [phone] * (ABNORMAL) Glucose, random (06/10/2024 1:30 PM EST) [facility] Glucose 118(H) 70 - 100 mg/dL LAB CHEMISTRY METHOD 06/10/2024 5:33 PM EST [facility] Blood Venous blood specimen / Unknown 06/10/2024 1:30 PM EST 06/10/2024 5:16 PM EST Magen Lantigua MD LAB BLOOD ORDERABLES Final Re sult Performing Organization Address [facility] Co de Phone Number [facility] [address] [place] [address], [place] [phone] * Valproic acid level, total (06/10/2024 1:30 PM EST) Pathologist [facility] Valproic Acid, Total 72 50 - 100 mcg/mL LAB CHEMISTRY METHOD 06/10/2024 5:33 PM EST [facility] Blood Venous blood specimen / Unknown 06/10/2024 1:30 PM EST 06/10/2024 5:16 PM EST us Magen Lantigua MD LAB BLOOD ORDERABLES Final Re sult [facility] [address] [place] [address], * MARISELA SCREENING DIGITAL (04/21/2019 10:45 AM EDT) Anatomical Region Laterality Modality Mammography 04/21/2019 10:0 4 AM EDT Narrative 04/21/2019 10:45 AM EDT [facility] Diagnostic Imaging Department [address] [place] [address] Patient: ??SITA,CHI ?/Age/Sex: 1975 - 44 - F Unit#: ??[id number] ? Location/Status: ??SPDIMAM/REG CLI ? Mnemonic/Ordering Site: ??DIGSC/SPMAM Ordering Physician: ??DON SANCHEZ BOARD CERTIFIED BEHAVIORAL ANALYST Marisela Screening Digital - 04/21/191020 HISTORY: The patient is a 44-year-old female presenting for baseline screening mammography. ??The patient has a family history of breast cancer involving her mother, prior to menopause. FINDINGS: ??CC and MLO views of both breasts were obtained using full field digital mammography in the SpineVisione 2000-D unit. Computer aided detection with the iCAD Second Look 7.2-H was employed. In addition, breast tomosynthesis in MLO projection was performed. The breasts are composed of a combination of fatty and fibroglandular elements (the breasts are heterogeneously dense, which may obscure small masses, category C density). ??Anteromedially in the left breast there is a 4.2 x 3.0 mm diameter asymmetry, located approximately 7 cm from the nipple. ??This is not identified on the MLO or on the tomographic images. ??There is no cluster of microcalcifications, skin thickening, or nipple retraction. IMPRESSION: Anteromedially in the right breast there is a 4.2 x 3.0 mm asymmetry, seen on the CC view only. ??This likely represents superimposition artifact. ??However, further evaluation with spot compression and full field rolled CC views is recommended. ??The patient will be contacted to arrange for this additional imaging. BIRADS Code Class 0: ??Incomplete. ??Need Additional Imaging Evaluation. PQRI CPT II 3340F Code 05845, 43554 PQRI 225 CPT II 7025F Dictating Physician: ??KHANH WILLETT MD Electronically Signed by: ??KHANH WILLETT MD Dic Date/Time: ??04/21/19 1040 Sign date/Time: ??04/21/19 1045 Procedure Note Khanh Willett - 07/01/2022 [facility] Diagnostic Imaging Department [address] [place] [address] Patient: TETO MOSLEY /Age/Sex: 1975 - 44 - F Unit#: [id number] Location/Status: SPDIMAM/REG CLI Mnemonic/Ordering Site: [facility] Ordering Physician: DON SANCHEZ NP Marisela Screening Digital - 04/21/191020 HISTORY: The patient is a 44-year-old female presenting for baselinescreening mammography. The patient has a family history of breast cancer involvingher mother, prior to menopause. FINDINGS: CC and MLO views of both breasts were obtained using fullfield digital mammography in the SpineVisione 2000-D unit. Computer aideddetection with the NetDocuments Second Look 7.2-H was employed. In addition, breasttomosynthesis in MLO projection was performed. The breasts are composed of a combination of fatty and fibroglandularelements (the breasts are heterogeneously dense, which may obscure small masses,category C density). Anteromedially in the left breast there is a 4.2 x 3.0 mmdiameter asymmetry, located approximately 7 cm from the nipple. This is notidentified on the MLO or on the tomographic images. There is no cluster of microcalcifications, skin thickening, or nipple retraction. IMPRESSION: Anteromedially in the right breast there is a 4.2 x 3.0 mm asymmetry, seen on the CC view only. This likely representssuperimposition artifact. However, further evaluation with spot compression and fullfield rolled CC views is recommended. The patient will be contacted to arrangefor this additional imaging. BIRADS Code Class 0: Incomplete. Need Additional Imaging Evaluation. PQRI CPT II 3340F Code 08182, 41538 PQRI 225 CPT II 7025F Dictating Physician: KHANH WILLETT MD Electronically Signed by: KHANH WILLETT MD Dic Date/Time: 04/21/19 1040 Sign date/Time: 04/21/19 104 us Don Tee BOARD CERTIFIED BEHAVIORAL ANALYST IMG BI PROCEDURES Final Res ult from Last 3 Months or Most Recently Relevant to Health Maintenance Insurance [employer] Member Subscriber Plan / Payer (Ef fective 2023-Present) Name:Teto Mosley Relation to Subscriber:Self Name:Teto Mosley Payer ID:[id number] Group ID:[id number] Type:Not on file Address: [address] [place] [address]
--- NOTE | 2024-09-05 10:46 | PC.NURSE ---
Pt. called this RN over asking why we have not called the police on her behalf. This RN stated to pt. that when she first arrived, she stated that she did not want to involve police at this time. Pt. became verbally aggressive, stating that she told provider she wanted to call. LANIE Angeles at bedside. Pt. states that she is in fear of her life, does not want to wait for police to be called and wants to leave. Grabbed her things and walked out with her mother, this RN, and PA at bedside. Unable to be redirected.
--- NOTE | 2024-09-05 10:48 | PC.NURSE ---
Verbal d/c per LANIE Angeles.
[2024-09-05 11:08] VITALS: BP 000/00; PULSE 0; RESP 0; TEMP -17.7; TEMP 0; O2SAT 0
== END 2024-09-05 11:09 | disposition home or self-care (01) ==
PROVIDERS: Emergency Provider Emergency Medicine
DX: S09.93XA Unspecified injury of face, initial encounter (principal); M54.2 Cervicalgia; R51.9 Headache, unspecified; X93.XXXA Assault by handgun discharge, initial encounter; Y93.9 Activity, unspecified; Y92.9 Unspecified place or not applicable; Y99.8 Other external cause status; Z79.899 Other long term (current) drug therapy
CPT/HCPCS: 70450; 70486; 72125; 99282; 99284

== ENCOUNTER → 2024-09-05 09:24 | Outpatient (BNV) | payer OTHER, SELFPAY | PROVIDERS: Emergency Provider Emergency Medicine; Visit Provider Radiology Diagnostic Radiology | DX: S02.2XXA Fracture of nasal bones, initial encounter for closed fracture (principal); S05.91XA Unspecified injury of right eye and orbit, initial encounter; I67.82 Cerebral ischemia; I65.23 Occlusion and stenosis of bilateral carotid arteries; S09.90XA Unspecified injury of head, initial encounter | CPT/HCPCS: 70450; 70486; 72125 ==

== ENCOUNTER 2024-09-19 09:12 | Outpatient (REF) | payer OTHER, SELFPAY ==
--- OUTSIDE RECORDS SUMMARY | 2024-09-19 09:47 | XMS_ITS | Encounter Summary ---
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 06/10/2024 7:01 PM EST [facility] Comment:Auto resulted. Blood Venous blood specimen / Unknown 06/10/2024 1:30 PM EST 06/10/2024 5:16 PM EST Magen Lantigua MD LAB BLOOD ORDERABLES Final Re sult Performing Organization Address [facility]/ZIP Co de Phone Number [facility] [address] [place] [address], [place] [phone] * (ABNORMAL) Glucose, random (06/10/2024 1:30 PM EST) [facility] Glucose 118(H) 70 - 100 mg/dL LAB CHEMISTRY METHOD 06/10/2024 5:33 PM EST [facility] Blood Venous blood specimen / Unknown 06/10/2024 1:30 PM EST 06/10/2024 5:16 PM EST Magen Lantigua MD LAB BLOOD ORDERABLES Final Re sult Performing Organization Address [facility] Co de Phone Number [facility] [address] [place] [address], [place] [phone] * Lipid panel with reflex to direct LDL (06/10/2024 1:30 PM EST) [facility] Cholesterol 192 0 - 200 mg/dL LAB CHEMISTRY METHOD 06/10/2024 5:50 PM EST [facility] Triglycerides 61 0 - 150 mg/dL LAB CHEMISTRY METHOD 06/10/2024 5:50 PM EST [facility] HDL 91 >=40 mg/dL LAB CHEMISTRY METHOD 06/10/2024 5:50 PM EST [facility] LDL Calculated 89 0 - 100 mg/dL LAB CHEMISTRY METHOD 06/10/2024 5:50 PM EST [facility] VLDL Cholesterol Fabian 12.2 mg/dL LAB CHEMISTRY METHOD 06/10/2024 5:50 PM EST [facility] Non HDL Chol. (LDL+VLDL) 101 <145 mg/dL LAB CHEMISTRY METHOD 06/10/2024 5:50 PM EST [facility] Chol/HDL Ratio 2.1 0.0 - 4.4 LAB CHEMISTRY METHOD 06/10/2024 5:50 PM EST [facility] Blood Venous blood specimen / Unknown 06/10/2024 1:30 PM EST 06/10/2024 5:16 PM EST Magen Lantigua MD LAB BLOOD ORDERABLES Final Re sult Performing Organization Address [facility]/ZIP Co de Phone Number [facility] [address] [place] [address], [place] [phone] * Hemoglobin A1c (06/10/2024 1:30 PM EST) Hemoglobin A1C 4.8 <6.5 % LAB CHEMISTRY METHOD 06/12/2024 11:38 AM EST [facility] Mean Bld Glu Estim. 91 mg/dL LAB CHEMISTRY METHOD 06/12/2024 11:38 AM [facility] Blood Venous blood specimen / Unknown 06/10/2024 1:30 PM EST 06/10/2024 5:16 PM EST Magen Lantigua MD LAB BLOOD ORDERABLES Final Re sult [facility] [address] [place] [address], [place] [phone] * Valproic acid level, total (06/10/2024 1:30 PM EST) Valproic Acid, Total 72 50 - 100 mcg/mL LAB CHEMISTRY METHOD 06/10/2024 5:33 PM EST [facility] Blood Venous blood specimen / Unknown 06/10/2024 1:30 PM EST 06/10/2024 5:16 PM EST us Magen Lantigua MD LAB BLOOD ORDERABLES Final Re sult [facility] [address] [place] [address], documented in this encounter Visit Diagnoses Diagnosis Prediabetes Other abnormal glucose Chronic pain syndrome documented in this encounter
--- OUTSIDE RECORDS SUMMARY | 2024-09-19 09:47 | XMS_ITS ---
Author Organization [facility] Address [address] [place] [id number] Care Team Providers Care Human Relations Manager Name Role Phone Magen Lantigua Primary Care Provider [phone] REASON FOR VISIT steroid nasal spray/Respite bed Social History Sex Assigned At : Social History Observation Description Sex Assigned At Female Encounters Encounter Location Date Provider Diagnosis [address] [phone] 09/16/2024 Magen Lantigua Plan Of Treatment Next Appt Details Provider Name:Laila Molina, 11/04/2024 10:00:00 AM, [address] [place] [address], [phone], Provider Name:Magen Lantigua, 11/04/2024 10:20:00 AM, [address] [place] [address], [phone], Progress Notes * Ld MOSLEY BDOB:1975 (49 yo F)Acc No.[id number]:09/16/2024 Patient:?Ld MOSLEY :1975???Age:49 Y???Sex:Female Address:[facility] [place], [address] * true * Date:? Generated for Printi ng/Facostag/eTransmitting on:?09/19/2024 09:47 AM EDT
--- OUTSIDE RECORDS SUMMARY | 2024-09-19 09:48 | XMS_ITS | Patient Health Record ---
Author Organization [facility] Address [address] [place] [address] Care Team Providers Care Buttermaker Name Role Phone Kenn Mujica Primary Care Provider Kenn Mujica MD Unavailable Unavailable Allergies Allergen (clinical drug ingredient) Drug/Non Drug Allergy documented on EMR Reaction Allergy Type Onset Date Status amoxicillin Amoxicillin Unknown Drug Allergy Act jareth Penicillin Unknown Drug Allergy Active Reason For Referral No Information Medications Medication SIG (Take, Route, Frequency, Duration) [...] a day for 30 days 05/29/2014 Active Social History Tobacco Use: Social History Observation Description Date Details (start date - stop date) Current some da y smoker NA - NA Tobacco Use/Smoking Question Answer Notes Patient is a: current some day smoker Patient is a: current some day smoker Problems Problem Type SNOMED Code ICD Code Onset Dates Problem Status W/U Status Risk Notes Problem 56919851 Impacted cerumen (380.4) Active confirmed Problem Asthma (220776872) Asthma (493.90) Active confirmed Problem Back pain (640033112) Back pain (724.5) Active confirmed Problem 30339313 Smoking (305.1) Active confirmed Problem 64447576 Degenerative dis k disease (722.6) Active confirmed Problem 39934417 Otalgia (388.70) Active confirmed Plan Of Treatment Pending Test Test Name Order Date CMP([facility]) 05/29/2014 BMP([facility]) 12/25/2014 LIVER/HEPATIC ([facility]) 12/25/2014 Lipid Profile ([facility]) 05/29/2014 TSH([facility]) 12/25/2014 TSH([facility]) 05/29/2014 MRI CERVICAL SPINE 10/03/2014 MRI LUMBAR SPINE 05/29/2014 DRUG TOX MONITORING 9 W/CONF, URINE ([facility] Screen) 07/03/2014 DRUG TOX MONITORING 9 W/CONF, URINE ([facility] g Screen) 09/07/2014 DRUG TOX MONITORING 9 W/CONF, URINE (Juan Francisco g Screen) 08/14/2014 DRUG TOX MONITORING 9 W/CONF, URINE 11/10 CBC with Differential (AUTO) 12/25/2014 CBC with Differential (AUTO) 05/29/2014 Future Test Test Name Order Date MRI CERVICAL SPINE 01/03/2015 BMP([facility]) 04/03/2015 LIVER/HEPATIC ([facility]) 04/03/2015 CBC with Differential (AUTO) 04/03/2015 Insurance Providers Payer Name Payer Address Payer Phone Subscriber Number Group Number Insured Name Patient Relationship to Insured Coverage Start Date Coverage End Date Medicare [place] Part B [address] [place] [address] [id number] Ld Mosley Self - patient is the insured Medicaid [address] [place] [address] [id number] Melany Chi Self - patient is the insured Medicaid [employer] [address] [place] [address] [id number] YAEL Mosley Chi Self - patient is the insured Medical (General) History Medical History History ICD Code asthma Surgical History Surgery Date(Month/Year) tonsillectomy bilateral tubes septoplasty
--- OUTSIDE RECORDS SUMMARY | 2024-09-19 09:48 | XMS_ITS | Encounter Summary ---
Author Organization [facility] Address [address] [place] [address] Care Team Providers Care Dispatcher Clerk Name Role Phone Unavailable Primary Care Provider Unavailabl e Reason for Visit * Reason Onset Date Comments Advice Only 09/15/2024 Encounter Details Date Type Department Care Team (Late st Contact Info) Description 09/15/2024 Telephone General Surgery - [place] [address] [place] [address] Walter Rose DO [address] [place] [address] Advice Only Social History Tobacco Use Types Packs/Day Years Used Date Smoking Tobacco: Never Assessed Comments Unknown Sex and Gender Information Value Date Recorded Sex Assigned at Not on file Legal Sex Female 1:40 AM EST Gender Identity Not on file Sexual Orientation Not on file documented as of this encounter Progress Notes * Walter Rose DO - 09/15/2024 1:39 PM EST Yes referral to GI was placed 03/16/24 * Eva Recinos - 09/15/2024 9:29 AM EST Anne from [facility], called and wanted to know, if Dr rose put in the Referral for this patient to have Colonoscopy done. Anne phone # . She would like for someone to call her. documented in this encounter Plan of Treatment Not on file documented as of this encounter Visit Diagnoses Not on filedocumented in this encounter
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
--- OUTSIDE RECORDS SUMMARY | 2024-09-19 09:48 | XMS_ITS | Clinical Summary ---
Author Organization [address] [facility] Address [address] [place] [address] Phone Care Team Providers Care Supervisor Conditioning Yard Name Role Phone Unavailable Primary Care Provider Unavailabl e Encounters Date Type Department Care Team Description 09/15/2024 Telephone General Surgery - [place] [address] [facility] [address] [place] [address] Walter Rose, DO Advice Only from Last 3 Months Social History Tobacco [...] Influencers of Health Screening 06/15/2022 COVID-19 Vaccine ( - 2023-2 5 season) 2024 Influenza Vaccine [...] Procedure Name Priority Date/Time Associated Diagnosis Comments LIPID PANEL WITH REFLEX TO DIRECT LDL Routine 06/10/2024 1:30 PM EST Prediabetes Chronic pain syndrome MARISELA SCREENING DIGITAL Routine 04/21/2019 10:45 AM EDT Encounter for screening mammogram for malignant neoplasm of breast from Last 3 Months or Most Recently Relevant to Health Maintenance Results * Lipid panel with reflex to direct LDL (06/10/2024 1:30 PM EST) Cholesterol 192 0 - 200 mg/dL LAB CHEMISTRY METHOD 06/10/2024 5:[address] [facility] Triglycerides 61 0 - 150 mg/dL LAB CHEMISTRY METHOD 06/10/2024 5:[address] [facility] HDL 91 >=40 mg/dL LAB CHEMISTRY METHOD 06/10/2024 5:[address] [facility] LDL Calculated 89 0 - 100 mg/dL LAB CHEMISTRY METHOD 06/10/2024 5:[address] [facility] VLDL Cholesterol Fabian 12.2 mg/dL LAB CHEMISTRY METHOD 06/10/2024 5:[address] [facility] Non HDL Chol. (LDL+VLDL) 101 <145 mg/dL LAB CHEMISTRY METHOD 06/10/2024 5:[address] [facility] Chol/HDL Ratio 2.1 0.0 - 4.4 LAB CHEMISTRY METHOD 06/10/2024 5:[address] [facility] Blood Venous blood specimen / Unknown 06/10/2024 1:30 PM EST 06/10/2024 5:16 PM EST us Magen Lantigua MD LAB BLOOD ORDERABLES Final Re sult [facility] [address] [place] [address], * MARISELA SCREENING DIGITAL (04/21/2019 10:45 AM EDT) Anatomical Region Laterality Modality Mammography 04/21/2019 10:0 4 AM EDT Narrative 04/21/2019 10:45 AM EDT [facility] Diagnostic Imaging Department [address] [place] [address] Patient: ??MELANY,CHI ?/Age/Sex: 1975 - 44 - Unit#: ??[id number] ? Location/Status: ??SPDIMAM/REG CLI ? Mnemonic/Ordering Site: ??DIGSC/SPMAM Ordering Physician: ??DON SANCHEZ TIP SCOURER Marisela Screening Digital - 04/21/19 - 1020 HISTORY: The patient is a 44-year-old female presenting for baseline screening mammography. ??The patient has a family history of breast cancer involving her mother, prior to menopause. FINDINGS: ??CC and MLO views of both breasts were obtained using full field digital mammography in the [employer] 2000-D unit. Computer aided detection with the [employer] Second Look 7.2-H was employed. In addition, [...] Imaging Evaluation. PQRI CPT II 3340F Code 35676, 97039 PQRI 225 CPT II 7025F Dictating Physician: ??KHANH WILLETT MD Electronically Signed by: ??KHANH WILLETT MD Dic Date/Time: ??04/21/19 1040 Sign date/Time: ??04/21/19 1045 Procedure Note Khanh Willett - 07/01/2022 [facility] Diagnostic Imaging Department [address] [place] [id number] Patient: MELANYTETO /Age/Sex: 1975 - 44 - F Unit#: [id number] Location/Status: SPDIMAM/REG CLI Mnemonic/Ordering Site: [facility] Ordering Physician: DON SANCHEZ NP Marisela Screening Digital - 04/21/191020 HISTORY: The patient is a 44-year-old female presenting for baselinescreening mammography. The patient has a family history of breast cancer involvingher mother, prior to menopause. FINDINGS: CC and MLO views of both breasts were obtained using fullfield digital mammography in the [employer] 2000-D unit. Computer aideddetection with the [employer] Second Look 7.2-H was [...] Imaging Evaluation. PQRI CPT II 3340F Code 35857, 26209 PQRI 225 CPT II 7025F Dictating Physician: KHANH WILLETT MD Electronically Signed by: KHANH WILLETT MD Dic Date/Time: 04/21/19 1040 Sign date/Time: 04/21/19 1045 Don Sanchez TIP SCOURER IMG BI PROCEDURES Final Res ult from Last 3 Months or Most Recently Relevant to Health Maintenance Insurance [facility] MEDIC[facility] Member Subscriber Plan / Payer (Ef fective 2023-Present) Name:Teto Mosley Relation to Subscriber:Self Name:Teto Mosley Payer ID:[id number] Group ID:[id number] Type:Not on file Address: [address] [place] [address]
== END 2024-09-19 09:13 | disposition home or self-care (01) ==
LOC: HO.HOSX 09:12
PROVIDERS: Visit Provider Physician Assistant
DX: Z13.89 Encounter for screening for other disorder (principal)

== ENCOUNTER 2024-09-23 03:48 | Emergency (ER) | payer OTHER, SELFPAY ==
[2024-09-23 03:56] VITALS: BP 128/63; PULSE 94; RESP 26; TEMP 36.4; O2SAT 96; BMI 20.8
--- NOTE | 2024-09-23 03:57 | ED_ITS ---
HPI - Overdose General Chief Complaint: ETOH/Substance Use Stated Complaint: OD Time Seen by Provider: 09/23/24 03:52 Source: patient and EMS Mode of arrival: EMS Limitations: other History of Present Illness ED Provider: Dr. Janice Raya HPI Narrative: Patient comes to the emergency room via ambulance. According to EMS, the patient found the patient completely cyanotic, bystanders gave a total of 12 mg of intranasal Narcan, patient woke up. When EMS arrived, patient ran from the house into the ambulance and threw herself on the stretcher ready to come to the hospital. Patient admits that she used heroin, denies SI or HI. Patient denies mixing it with any other medications. Related Data Home Medications ?Medication ?Instructions ?Recorded ?Confirmed divalproex 250 mg tablet,delayed 750 mg PO BEDTIME 07/31/23 05/17/24 release divalproex 500 mg tablet,delayed 500 mg PO DAILY 07/31/23 05/17/24 release indomethacin 50 mg capsule 50 mg PO BID 07/31/23 05/17/24 mometasone-formoterol HFA 100 2 puff inhalation BID 07/31/23 05/17/24 mcg-5 mcg/actuation aerosol inhaler (Dulera) zaqdeza-ayqmygjpstwht-whrqtfnz 250 2 tab PO Q6H PRN Migraine Headache 09/21/23 05/17/24 mg-250 mg-65 mg tablet (Excedrin Extra Strength) trazodone 150 mg tablet 150 mg PO BEDTIME 11/11/23 05/17/24 methadone 10 mg/mL oral 10 mg PO QPM 12/23/23 05/17/24 concentrate (Methadone Intensol) oxycodone 5 mg tablet 5 mg PO Q6H 12/23/23 05/17/24 methadone 10 mg/mL oral 15 mg PO QAM 05/17/24 05/17/24 concentrate (Methadone Intensol) Previous Rx's ?Medication ?Instructions ?Recorded nebulizer and compressor (PureAir #1 ea 04/09/21 Mini Nebulizer) levetiracetam 500 mg tablet 500 mg PO BID #1 tab 08/12/23 ondansetron 4 mg disintegrating 4 mg translingual Q6H PRN Nausea 08/12/23 tablet And Vomiting #1 tab Knee scooter #1 ea 09/03/23 duloxetine 20 mg capsule,delayed 20 mg PO DAILY #30 caps 12/26/23 release metoprolol succinate 50 mg 50 mg PO DAILY #90 tabs 05/12/24 tablet,extended release 24 hr nitrofurantoin 100 mg PO BID 7 days #13 caps 08/14/24 monohydrate/macrocrystals 100 mg capsule (Macrobid) Allergies Allergy/AdvReac Type Severity Reaction Status Date / Time amoxicillin [AMOXICILLIN] Allergy Intermediate RASH Verified 09/23/24 04:02 Penicillins [PENICILLINS] Allergy Intermediate RASH Verified 09/23/24 04:02 topiramate [From Topamax] AdvReac Unknown Unknown Verified 09/23/24 04:02 lamictal AdvReac Unknown Unknown Uncoded 09/23/24 04:02 Review of Systems 2 Review of Systems: Constitutional : No Weight loss, No Fever, No Chills, No Night Sweats, No Fatigue, No Malaise . Patient states that she feels very cold ENT/Mouth : No Hearing loss, No Ear Pain, No Nasal Congestion, No Sinus Pain, No Hoarseness, No sore throat, No Rhinorrhea, No Swallowing Difficulty Eyes: No Eye Pain, No Swelling, No Redness, No Foreign Body, No Discharge, No Vision Changes Cardiovascular : No Chest Pain, No SOB, No Dyspnea on Exertion, No Orthopnea, No Edema, No Palpitations Respiratory : No Cough, No Sputum, No Wheezing, No Smoke Exposure, No Dyspnea Gastrointestinal : No Nausea, No Vomiting, No Diarrhea, No Constipation, No abdominal Pain, No Hematochezia, No Melena Genitourinary : no irregular bleeding, No Dysuria, No Urinary Frequency, No Hematuria, No Urinary Incontinence, No Urgency, No Flank Pain, No Urinary Flow Changes, No Hesitancy Musculoskeletal : No joint pain, No Myalgias, No Joint Swelling Skin : No Skin Lesions, No rash Neuro : No Weakness, No Numbness, No Paresthesias, No Loss of Consciousness, No Dizziness, No Headache Psych : No Anxiety/Panic, No Depression, No SI/HI/AH/VH, No Social Issues, Heme/Lymph: No Bruising, No Bleeding,No Lymphadenopathy Endocrine : No Polyuria, No Polydipsia, No Temperature Intolerance PMFSH Past Medical History Medical History Headache, migraine Cocaine use disorder Opioid use disorder, moderate, in early remission, on maintenance therapy, dependence Bipolar disorder with depression PTSD (post-traumatic stress disorder) Cardiac pacemaker in situ Opioid use disorder Seizure disorder Clavicle fracture Narcotic abuse Seizures Asthma COPD (chronic obstructive pulmonary disease) Surgical History History of ankle surgery (08/05/23) H/O right knee surgery H/O left knee surgery Social History Social History Household Members: Family Household Members Other:: Mother, father, daughter Housing: House Do you presently have visiting nurse or other home services: Yes Alcohol intake: never Patient Tobacco Use Status: Refuse Tobacco use screen Tobacco use type: Cigarette Smoked in Last 30 Days: No e-Cigarette/Vaping Use: Currently Using Second Hand Smoke Exposure: No Substance Use Type: Heroin Substance Use Frequency: Occasionally Last Used Substance: Hours (ago) Advance Directives: Yes Advance Directives Information Provided: Yes Advance Directives on File: No Advance Directives Date on File: 09/29/23 Do you have a plan to hurt others: No Plan service: No Sexual orientation: Straight/Heterosexual Physical Exam 2 Vital Signs: Vital Signs: Last Vital Signs Temp 97.5 F 09/23/24 03:56 Pulse 94 09/23/24 03:56 Resp 26 H 09/23/24 03:56 BP 128/63 09/23/24 03:56 Pulse Ox 96 09/23/24 03:56 O2 Del Method Room Air 09/23/24 03:56 BMI result Body Mass Index 20.8 Const: Other: Appearance: Alert. Oriented X3. very anxious, she bring, feels very cold Eyes: Pupils equal, round and reactive to light. ENT: Pharynx normal. Neck: Normal inspection. Neck supple. No lymph nodes noted. No crepitus CVS: Normal heart rate and rhythm. Pulses normal. Normal S1 and S2 Respiratory: No respiratory distress. Breath sounds normal. No Wheezing. No rales Abdomen: Soft and nontender. No rigidity. No distention. Skin: Skin warm and dry. Normal skin color. Normal skin turgor. Extremities: No lower extremity edema. No Lacerations. No Rash Neuro: Oriented X 3. No motor deficit. No sensory deficit. Moving all extremities. No slurred speech. CN 2 through 12 grossly intact Psych: calm, cooperative, very anxious Course Course Course Narrative: patient's labs pending patient is adamant that she is not SI or HI Medical Decision Making Medical Decision Making [facility] [place] Narrative: my interpretation of labs: No significant abnormality in patient's hematology, chemistry at baseline, troponin negative, hCG negative, ETOH negative. Serology negative for influenza COVID and RSV urinalysis and urine toxicology pending. Patient not interested in detox patient denies SI or HI Differential Diagnosis Differential Diagnoses: The differential diagnosis associated with the presentation includes ( polysubstance abuse, anxiety, depression) Admission/Observation Consideration of admission/observation: Escalation of care including admission/observation considered ( patient will be staying in the emergency room due she is more awake) Lab Data [facility] [place] Lab Attestation statement: I reviewed the patient's lab results. 09/23/24 04:56 09/23/24 04:56 Labs: Lab Results 09/23/24 09/23/24 Range/Units 04:34 04:56 WBC 2.5 L (4.8-10.8) X10*3/uL RBC 3.59 L (4.20-5.50) X10*6/uL Hgb 10.4 L (12.0-16.0) g/dl Hct 29.9 L D (37.0-47.0) % MCV 83.3 (80.0-98.0) fL MCH 29.0 (27.0-33.0) pg MCHC 34.8 (31.0-35.0) g/dl RDW 14.0 (11.0-16.0) % Plt Count 95 L D (160-400) X10*3/uL MPV 10.7 (9.4-12.3) fL Immature Gran % (Auto) 0.4 (0.0-0.4) % Neut % (Auto) 63.7 (45-73) % Lymph % (Auto) 23.9 (20-40) % [place] % (Auto) 11.2 H (2-11) % Eos % (Auto) 0.4 (0-4) % Baso % (Auto) 0.4 (0-2) % Lymph # (Auto) 0.6 L (1.2-4.9) X10*3/uL [place] # (Auto) 0.3 (0.1-1.2) X10*3/uL Eos # (Auto) 0.0 (0.0-0.4) X10*3/uL Baso # (Auto) 0.0 (0.0-0.2) X10*3/uL Abs Immat Gran (auto) 0.01 (0.00-0.03) X10*3/uL Absolute Neuts (auto) 1.6 L (2.0-8.3) x10*3/uL Absolute Nucleated RBC 0.000 (0.0-0.012) X10*3/uL Nucleated RBC % (auto) 0.0 (0.0-0.2) /100WBC Sodium 139 (135-145) mmol/L Potassium 4.1 (3.3-5.1) mmol/L Chloride 102 (96-108) mmol/L Carbon Dioxide 29 (22-29) mmol/L Anion Gap 12 (12-20) BUN 28 H (9-16) mg/dL Creatinine 0.82 (0.5-1.4) mg/dL Estim Creat Clear Calc 88.5 Estimated GFR > 60 Random Glucose 86 (60-115) mg/dL Calcium 8.9 D (8.4-10.2) mg/dL Total Bilirubin 0.4 (0.0-1.0) mg/dL Direct Bilirubin 0.2 (0.0-0.5) mg/dL AST 46 H (5-31) U/L ALT 45 H (0-31) U/L Alkaline Phosphatase 102 (39-117) U/L Troponin I High Sens < 2.7 (<3.5-17.0) ng/L Total Protein 5.6 L (6.5-8.0) g/dL Albumin 3.4 L (3.5-5.0) g/dL Beta HCG, Quant < 2 mIU/mL Ethyl Alcohol < 10 mg/dL Influenza Type A (PCR) NEGATIVE (Negative) Influenza Type B (PCR) NEGATIVE (Negative) RSV RNA Qual (PCR) NEGATIVE (Negative) SARS-CoV-2 RNA (RT-PCR) NEGATIVE (Negative) Critical Care Time Critical Care Time Critical Care Time: Yes Total Critical Care Time: 45 Attestation: I have personally provided critical care time. Time includes review of lab data, radiology results, discussion with consultants, and monitoring for potential decompensation. Intervention performed as documented. Discharge Plan Discharge Clinical Impression: Accidental drug overdose Patient Disposition: Still a Patient Instructions: Adult Overdose (ED) Additional Instructions: Overdose You were seen in our Emergency Department for an overdose today. You received narcan in order to reverse the effects of overdose. Narcan only lasts about 45 min to 1 hour in the system. You may have been given narcan to take home with you today, please keep it near you if you are going to use again, so others can use it if needed.? The number one risk for fatal overdose is using alone? [facility] is a 02/02 hotline where you can be on the phone with someone while you use, and they can call for help if they suspect an overdose: [phone] Things to look out for when you leave include severe vomiting or diarrhea, headaches, muscle cramps, fever, coughing, chest pain, or if you feel so short of breath you cannot walk to the bathroom. Please seek care and return any time for worsening symptoms.? You may have been provided with safer injection?items, please take time to take care of YOU and your health. Use new supplies whenever possible to lessen the chances of infections and other illnesses.? If you need more supplies, please go [facility],? [address] [place] [address] OR you can call or text to coordinate delivery of safer supplies. If you decide you want to stop or cut down on how much you?re using, please call the numbers on the list provided to you or you can come to our outpatient Addiction Treatment office [facility] (M-F 9am-5p) [facility], [address] [phone] Prescriptions: No Action metoprolol succinate 50 mg tablet extended release 24 hr 50 mg PO DAILY Qty: 90 3RF (DME) nebulizer and compressor [PureAir Mini Nebulizer] Device See Rx Instructions .Route Qty: 1 0RF Rx Instructions: As directed oxycodone 5 mg tablet 5 mg PO Q6H methadone [Methadone Intensol] 10 mg/mL Concentrate 10 mg PO QPM duloxetine 20 mg Capsule,Delayed Release(Dr/Ec) 20 mg PO DAILY Qty: 30 0RF methadone [Methadone Intensol] 10 mg/mL concentrate 15 mg PO QAM nitrofurantoin monohyd/m-cryst [Macrobid] 100 mg capsule 100 mg PO BID 7 Days Qty: 13 0RF Rx Instructions: must administer with a meal/food divalproex 250 mg tablet,delayed release (DR/EC) 750 mg PO BEDTIME divalproex 500 mg tablet,delayed release (DR/EC) 500 mg PO DAILY indomethacin 50 mg capsule 50 mg PO BID Dulera 100-5 mcg/actuation HFA aerosol inhaler 2 puff inhalation BID levetiracetam 500 mg Tablet 500 mg PO BID Qty: 1 0RF ondansetron 4 mg Tablet,Disintegrating 4 mg translingual Q6H PRN (Reason: Nausea And Vomiting) Qty: 1 0RF Excedrin Extra Strength 250-250-65 mg Tablet 2 tab PO Q6H PRN (Reason: Migraine Headache) trazodone 150 mg tablet 150 mg PO BEDTIME (DME) Knee scooter See Rx Instructions .ROUTE .MEDSUPPLY Qty: 1 0RF Rx Instructions: As directed Print Language: Georgian
[2024-09-23 04:06] VITALS: PULSE 77
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
--- OUTSIDE RECORDS SUMMARY | 2024-09-23 04:32 | XMS_ITS | Encounter Summary ---
Author Organization [facility] Address [address] [place] [address] Care Team Providers Care Aircraft Pneudraulic Systems Mechanic Name Role Phone Unavailable Primary Care Provider Unavailabl e Reason for Visit * Reason Onset Date Comments Advice Only 09/15/2024 Encounter Details Date Type Department Care Team (Late st Contact Info) Description 09/15/2024 Telephone General Surgery - [place] [address] [place] [address] Walter Rose DO [address] [place] [address] Advice Only Social History Tobacco Use Types [...]
--- OUTSIDE RECORDS SUMMARY | 2024-09-23 04:32 | XMS_ITS | Patient Health Record ---
Author Organization [facility] Address [address] [place] [address] Care Team Providers Care Site Leasing Agent Name Role Phone Kenn Mujica Primary Care Provider [phone] Kenn Mujica MD Unavailable Unavailable Allergies Allergen [...] Problem Status W/U Status Risk Notes Problem 82520193 Impacted cerumen (380.4) Active confirmed Problem Asthma (873775842) Asthma (493.90) Active confirmed Problem Back pain (264862694) Back pain (724.5) Active confirmed Problem 42750228 Smoking (305.1) Active confirmed Problem 32194538 Degenerative dis k disease (722.6) Active confirmed Problem 76011871 Otalgia (388.70) Active confirmed Plan Of Treatment [...] Medicare [place] [address] [place] [address] [phone] [id number] Ld Mosley Self - patient is the insured Medicaid [address] [place] [phone] [id number] Melany Chi Self - patient is the insured Medicaid Crossover [address] [place] [address] [id number] YAEL Mosley Chi Self - patient is the insured Medical (General) History Medical History History ICD Code asthma Surgical History Surgery Date(Month/Year) tonsillectomy bilateral tubes septoplasty
--- OUTSIDE RECORDS SUMMARY | 2024-09-23 04:32 | XMS_ITS ---
Author Organization [facility] Address [address] [place] [phone] Care Team Providers Care Calibration Checker Name Role Phone Magen Lantigua Primary Care Provider REASON FOR VISIT steroid nasal spray/Respite bed Social History Sex Assigned At : Social History Observation Description Sex Assigned At Female Encounters Encounter Location Date Provider Diagnosis [address] [id number] 09/16/2024 Magen Lantigua Plan Of Treatment Next Appt Details Provider Name:Madisonabiodun Da SilvaTracy, 11/04/2024 10:00:00 AM, [address] [place] [address], [id number], Provider Name:Magen Lantigua, 11/04/2024 10:20:00 AM, [address] [place] [address], [id number], Progress Notes * Ld MOSLEY BDOB:1975 (49 yo F)Acc No.[id number]:09/16/2024 Patient:?Ld MOSLEY :1975???Age:49 Y???Sex:Female Address:[facility] [place], [address] * true * Date:? Generated for Printi ng/Facostag/eTransmitting on:?09/23/2024 04:31 AM EDT
--- OUTSIDE RECORDS SUMMARY | 2024-09-23 04:32 | XMS_ITS | Clinical Summary ---
Author Organization [facility] Address [address] [place] [address] Phone Care Team Providers Care Resident Program Specialist Name Role Phone Unavailable Primary Care Provider Unavailabl e Encounters Date Type Department Care Team Description 09/15/2024 Telephone General Surgery - [place] [address] [facility] [address] [place] [address] Walter Rose, DO Advice Only [...] LAB CHEMISTRY METHOD 06/10/2024 5:50 PM EST [facility] Triglycerides 61 0 - 150 mg/dL LAB CHEMISTRY METHOD 06/10/2024 5:50 PM EST [facility] HDL 91 >=40 mg/dL LAB CHEMISTRY METHOD 06/10/2024 5:50 PM EST [facility] LDL Calculated 89 0 - 100 mg/dL LAB CHEMISTRY METHOD 06/10/2024 5:50 PM EST [facility] VLDL Cholesterol Fabian 12.2 mg/dL LAB CHEMISTRY METHOD 06/10/2024 5:50 PM EST [facility] Non HDL Chol. (LDL+VLDL) 101 <145 mg/dL LAB CHEMISTRY METHOD 06/10/2024 5:50 PM EST [facility] Chol/HDL Ratio 2.1 0.0 - 4.4 LAB CHEMISTRY METHOD 06/10/2024 5:50 PM EST [facility] Blood Venous blood specimen / Unknown 06/10/2024 1:30 PM EST 06/10/2024 5:16 PM EST us Magen Lantigua MD LAB BLOOD ORDERABLES Final Re sult [facility] [address] [place] [address], * MARISELA SCREENING DIGITAL (04/21/2019 10:45 AM EDT) Anatomical Region Laterality Modality Mammography 04/21/2019 10:0 4 AM EDT Narrative 04/21/2019 10:45 AM EDT [facility] Diagnostic Imaging Department [address] [place] [address] Patient: ??SITA,CHI ?/Age/Sex: 1975 - 44 - Unit#: ??[id number] ? Location/Status: ??SPDIMAM/REG CLI ? Mnemonic/Ordering Site: ??DIGSC/SPMAM Ordering Physician: ??DON SANCHEZ TITLE DEPARTMENT MANAGER Marisela Screening Digital - 04/21/19 - 1020 HISTORY: The patient is a 44-year-old female presenting for baseline screening mammography. ??The patient has a family history of breast cancer involving her mother, prior to menopause. FINDINGS: ??CC and MLO views of both breasts were obtained using full field digital mammography in the [employer] 2000-D unit. Computer aided detection with the [employer] Second Look 7.2-H was employed. In addition, [...] Imaging Evaluation. PQRI CPT II 3340F Code 23654, 39691 PQRI 225 CPT II 7025F Dictating Physician: ??KHANH WILLETT MD Electronically Signed by: ??KHANH WILLETT MD Dic Date/Time: ??04/21/19 1040 Sign date/Time: ??04/21/19 1045 Procedure Note Khanh Willett - 07/01/2022 [facility] Diagnostic Imaging Department [address] [place] [id number] Patient: SITATETO /Age/Sex: 1975 - 44 - F Unit#: [id number] Location/Status: SPDIMAM/REG CLI Mnemonic/Ordering Site: [facility] Ordering Physician: DON SANCHEZ NP Marisela Screening Digital - 04/21/191020 HISTORY: The patient is a 44-year-old female presenting for baselinescreening mammography. The patient has a family history of breast cancer involvingher mother, prior to menopause. FINDINGS: CC and MLO views of both breasts were obtained using fullfield digital mammography in the [employer] 2000-D unit. Computer aideddetection with the iCAD [...] Imaging Evaluation. PQRI CPT II 3340F Code 79387, 87397 PQRI 225 CPT II 7025F Dictating Physician: KHANH WILLETT MD Electronically Signed by: KHANH WILLETT MD Dic Date/Time: 04/21/19 1040 Sign date/Time: 04/21/19 1045 Don Sanchez TITLE DEPARTMENT MANAGER IMG BI PROCEDURES Final Res ult from Last 3 Months or Most Recently Relevant to Health Maintenance Insurance [facility] MEDICARE Member Subscriber Plan / Payer (Ef fective 2023-Present) Name:Teto Mosley Relation to Subscriber:Self Name:Teto Mosley Payer ID:[id number] Group ID:[id number] Type:Not on file Address: [address] [place] [address]
[2024-09-23 05:01] LABS: Basophils Percent Auto 0.4 % (0-2); Eosinophils Percent Auto 0.4 % (0-4); Hematocrit 29.9 % (37.0-47.0); Hemoglobin 10.4 g/dl (12.0-16.0); Imm Gran Abs Auto 0.01 X10*3/uL (0.00-0.03); Imm Gran Pct Auto 0.4 % (0.0-0.4); Lymphocytes Absolute Auto 0.6 X10*3/uL (1.2-4.9); Lymphocytes Percent Auto 23.9 % (20-40); Mean Corpuscular HGB Conc 34.8 g/dl (31.0-35.0); Mean Corpuscular Volume 83.3 fL (80.0-98.0); Mean Platelet Volume 10.7 fL (9.4-12.3); Monocytes Absolute Auto 0.3 X10*3/uL (0.1-1.2); Monocytes Percent Auto 11.2 % (2-11); Neutrophils Absolute Auto 1.6 x10*3/uL (2.0-8.3); Neutrophils Percent Auto 63.7 % (45-73); Platelet Count 95 X10*3/uL (160-400); Red Blood Count 3.59 X10*6/uL (4.20-5.50); White Blood Count 2.5 X10*3/uL (4.8-10.8)
[2024-09-23 05:02] LABS: MANUAL DIFF FLAG NO
[2024-09-23 05:18] LABS: Influenza A PCR NEGATIVE (Negative); Influenza B PCR NEGATIVE (Negative); Resp Syncy Virus RNA Qual PCR NEGATIVE (Negative); SARS COV2 PCR INHOUSE NEGATIVE (Negative)
[2024-09-23 05:21] LABS: Troponin-I High Sensitivity < 2.7 ng/L (<3.5-17.0)
[2024-09-23 05:23] LABS: Alanine Aminotransferase 45 U/L (0-31); Albumin Level 3.4 g/dL (3.5-5.0); Alkaline Phosphatase 102 U/L (39-117); Anion Gap 12 (12-20); Aspartate Amino Transferase 46 U/L (5-31); Bilirubin Direct 0.2 mg/dL (0.0-0.5); Bilirubin Total 0.4 mg/dL (0.0-1.0); Blood Urea Nitrogen 28 mg/dL (9-16); Calcium 8.9 mg/dL (8.4-10.2); Carbon Dioxide 29 mmol/L (22-29); Chloride 102 mmol/L (96-108); Creatinine Clr Calc Pharmacy 88.5; Estimated Glomerular Filt Rate > 60; Ethanol < 10 mg/dL; Glucose Random 86 mg/dL (60-115); HCG Quantitative < 2 mIU/mL; Potassium 4.1 mmol/L (3.3-5.1); Sodium 139 mmol/L (135-145); Total Protein 5.6 g/dL (6.5-8.0)
[2024-09-23 06:00] VITALS: BP 105/66; PULSE 64; RESP 14; TEMP 36.4; O2SAT 95
[2024-09-23 07:01] VITALS: PULSE 91
--- NOTE | 2024-09-23 09:58 | PC.NURSE ---
pt got a breakfast try. pt told that this rn had her DC paperwork ready. at this time pt states she is sad and depressed and wants to see crisis team. Denies SI and CASSANDRA. notified.
--- NOTE | 2024-09-23 09:59 | PC.NURSE ---
methadone dose verified at [facility]- Per Melinda CALLAWAY pt gets take home bottles and split dose. She takes 15mg in the morning and 10mg at night. Pt picked up 12 bottles on 09/16/24 at 0930
[2024-09-23 10:00] VITALS: BP 103/69; PULSE 71; RESP 16; TEMP 36.9; O2SAT 98
--- NOTE | 2024-09-23 10:56 | HE.PHANOTE ---
Addendum entered by Yesica Morales [facility] 09/23/24 13:58: Pt receives 10mg in AM and 15mg in PM Original Note: METHADONE Pt last took 09/22 @ 07380, received both AM and PM doses. Pt receives from [facility] ([phone]) per CESIA Lawrence. Pt was given 12 take home doses, picked up on 09/16/24,.
--- NOTE | 2024-09-23 12:29 | PC.NURSE ---
aircraft launch and recovery technician came to see pt and pt reported SI. notified. charge nurse notified
--- NOTE | 2024-09-23 12:58 | MHC.RECOVRN ---
Attempted to meet with pt in ED12 after receiving Addiction Medicine consult for overdose. Pt laying in bed, eyes closed, wakes to voice. Pt states I've been trying for days to see crisis. T/w then asked if pt had SI and pt said yes. SUDE deferred due to pt reporting SI. Provider and RN notified.
[2024-09-23] MEDS: methADONE HCl 20 MG/2 ML ORAL.CONC 15 MG PO (13:24)
--- NOTE | 2024-09-23 13:53 | MHC.CARE ---
Pt does not meet the criteria for IPLOC. She will be referred to [facility].
--- NOTE | 2024-09-23 14:00 | HE.PHANOTE ---
METHADONE Pt last took 09/22 @ 48110, received both AM and PM doses. Pt receives from [facility] ([phone]) per CESIA Lawrence. Pt was given 12 take home doses, picked up on 09/16/24. Pt receives 15mg in AM and 10mg in PM
[2024-09-23] MEDS: levETIRAcetam 500 MG TABLET PO (14:18)
--- NOTE | 2024-09-23 14:22 | PC.NURSE ---
Assumed care of this pt, now roomed in pod. Med rec completed, meds stored in locker with inventory. Pt a&ox4 at this time, in nad, behaviours non concerning. pt is an active bedsearch with CARE team.
[2024-09-23] MEDS: Indomethacin 25 MG CAPSULE 50 MG PO (14:32)
--- NOTE | 2024-09-23 17:38 | PC.NURSE ---
Report given to [facility] respite RN, who states that they would like her to remain in the ED under obs until tomorrow morning when there is an RN available to meet her. She will require transportation to [address] [place] [address].
[2024-09-23 17:52] VITALS: BP 110/60; PULSE 64; RESP 16; TEMP 37.2; O2SAT 98
--- NOTE | 2024-09-23 18:30 | PC.NURSE ---
contact at [facility] DAMION MAGALLANES [phone]
--- NOTE | 2024-09-23 20:58 | PHA.MEDREC ---
Addendum entered by Abe Madsen RPh 09/23/24 21:21: med rec checked by [facility] Original Note: Pharmacy Consult ? Medication Reconciliation Pharmacy reviewed med rec done by nursing. Confirmed med rec with Rx bottles and spoke with patient. Budesonide 32mcg nasal spray bottle in patient rx bottle bag, patient confirmed she does 1 spray in each nostril daily, I added that on the med rec. Patient confirmed she is not taking the Metoprolol 50mg tabs anymore and stated her Dr stopped those about 2 months ago, nursing confirmed that I took that off the med rec. She also confirmed her Trelegy inhaler one puff daily, I added that on the med rec.
--- NOTE | 2024-09-23 21:57 | PC.NURSE ---
patient remins at rest at present respirations are even and unlabored patient appears in no distress.
[2024-09-23] MEDS: methADONE HCl 20 MG/2 ML ORAL.CONC 10 MG PO (22:36)
[2024-09-23] MEDS: traZODone HCL 50 MG TABLET 150 MG PO (22:39)
[2024-09-24 09:56] VITALS: BP 92/40; PULSE 71; RESP 16; TEMP 36.8; O2SAT 95
--- NOTE | 2024-09-24 09:59 | MHC.EDTECH ---
This tech attempted to obtain urine sample from patient. Patient stated that i can't even get up to walk, I haven't received any of my pain medications or antiinflammatories. This tech informed patient that if they were unable to ambulate on their own then this may not be the best location for them to be in. Patient quickly stated, well I can walk, but it's very painful and I need my medications. RN aware of conversation.
--- NOTE | 2024-09-24 10:00 | HO.WOUND ---
Assumed care of pt at 0700. Pt resting in bed quietly, a/ox3, respirations even and unlabored, no increased wob/sob noted. Denies cp/sob/dizziness/n/v. Morning metoprolol held d/t pt BP soft 92/40. Provider aware, pt asymptomatic at this time. Pt encouraged to get oob/eat breakfast. Call richey within reach, all needs met at this time.
[2024-09-24] MEDS: oxyCODONE HCl Immed Release 5 MG TABLET 10 MG PO (10:14)
[2024-09-24] MEDS: Divalproex Sodium 250 MG TABLET.DR 750 MG PO (10:16)
[2024-09-24] MEDS: DULoxetine HCl 30 MG CAPSULE.DR PO (10:16)
[2024-09-24 10:31] LABS: Amphetamine Screen Urine Not Detected (Not Detect); Barbiturates, Urine Not Detected (Not Detect); Benzodiazepines Screen Urine Not Detected (Not Detect); Buprenorphine Scr Not Detected (Not Detect); Cannabinoid Screen Urine Not Detected (Not Detect); Cocaine Screen Urine POSITIVE (Not Detect); Fentanyl, urine POSITIVE (Not Detect); Methadone Screen, Urine Positive (Not Detect); Opiate Screen Urine POSITIVE (Not Detect); Oxycodone Screen Urine Positive (Not Detect); Phencyclidine Screen Urine Not Detected (Not Detect)
--- NOTE | 2024-09-24 10:33 | HO.SUDE ---
Met with [facility] in [facility] for a SUDE as pt was BIBA to the [facility] ED for an overdose requiring Narcan resuscitation with 12mg of Narcan. Per Crisis eval, pt was found unresponsive in the community by bystanders. Recent stressors include the anniversary of her ?s , who from an overdose in 2021. Pt reported an extensive history of inpatient and ATS hospitalizations, including a section 35. Pt started using cocaine in her 30s and heroin in her 40s. She did not wish to go into further details regarding her susbtance use. Pt not interested in ATS or recovery coaching at this time. Pt will be going to respite per care team.
[2024-09-24] MEDS: Naloxone HCl Nasal TAKE HOME 4 MG SPRAY 8 MG NOSTRILALT (11:28)
[2024-09-24 11:36] VITALS: BP 108/72; PULSE 70; RESP 18; TEMP 36.8; O2SAT 96
== END 2024-09-24 11:38 | disposition skilled nursing facility (03) ==
PROVIDERS: Emergency Provider Emergency Medicine
DX: T40.1X1A Poisoning by heroin, accidental (unintentional), initial encounter (principal); Y92.89 Other specified places as the place of occurrence of the external cause; R10.2 Pelvic and perineal pain; F41.9 Anxiety disorder, unspecified; Z79.899 Other long term (current) drug therapy; Z51.81 Encounter for therapeutic drug level monitoring; Z03.818 Encounter for observation for suspected exposure to other biological agents ruled out
CPT/HCPCS: 0241U; 36415; 80048; 80076; 80307; 84484; 84702; 85025; 99285; S9485

== ENCOUNTER 2024-09-23 08:10 | Outpatient (REF) | payer OTHER, SELFPAY | END 2024-09-23 08:11 | disposition home or self-care (01) | LOC: HO.HOSX 08:10 | PROVIDERS: Visit Provider Physician Assistant | DX: Z13.89 Encounter for screening for other disorder (principal) ==

== ENCOUNTER → 2024-10-18 23:59 | Outpatient (BNV) | payer OTHER, SELFPAY ==
--- NOTE | 2024-10-21 13:38 | MHC.OFFVIS ---
Intake Visit Reasons: Remote device check- [facility] Allergies amoxicillin [AMOXICILLIN] Allergy (Intermediate, Verified 09/23/24 04:02) RASH Penicillins [PENICILLINS] Allergy (Intermediate, Verified 09/23/24 04:02) RASH topiramate [From Topamax] Adverse Reaction (Unknown, Verified 09/23/24 04:02) Unknown lamictal Adverse Reaction (Unknown, Uncoded 09/23/24 04:02) Unknown [facility] Medical History Headache, migraine Cocaine use disorder Opioid use disorder, moderate, in early remission, on maintenance therapy, dependence Bipolar disorder with depression PTSD (post-traumatic stress disorder) Cardiac pacemaker in situ Opioid use disorder Seizure disorder Clavicle fracture Narcotic abuse Seizures Asthma COPD (chronic obstructive pulmonary disease) Surgical History History of ankle surgery (08/05/23) H/O right knee surgery H/O left knee surgery Social History Household Members: Family Household Members Other:: Mother, father, daughter Housing: House Do you presently have visiting nurse or other home services: Yes Alcohol intake: never Patient Tobacco Use Status: Refuse Tobacco use screen Tobacco use type: Cigarette e-Cigarette/Vaping Use: Currently Using Second Hand Smoke Exposure: No Substance Use Type: Heroin Advance Directives Date on File: 09/29/23 service: No Sexual orientation: Straight/Heterosexual Office Procedures Cardiac Device Check Cardiac Device Check Details: Remote pacemaker report generated 10/18/2024. Pacemaker function is adequate. Episodes of high ventricular rate either consistent with sinus tachycardia and/or SVT. 63059-Fjifhe Cardiac Device Interrogation, pacemaker Procedure code (CPT) selection complete Assessment & Plan Assessment & Plan (1) Cardiac pacemaker in situ: Comment: [facility] Dual Chamber placed on 09/25/23 Code(s): Z95.0 - Presence of cardiac pacemaker Category: Medical Plan: See above Coding Level of Care Code Procedure Only Diagnoses Cardiac pacemaker in situ Z95.0 CPT Codes Cardiac Device Check - Cardiac Device 12: 81241-Pyvhch Cardiac Device Interrogation, pacemaker ([id number])
== END ==
PROVIDERS: Visit Provider Internal Medicine Cardiovascular Disease
DX: R00.0 Tachycardia, unspecified (principal); Z95.0 Presence of cardiac pacemaker
CPT/HCPCS: 93294

== ENCOUNTER 2024-10-24 08:55 | Outpatient (REF) | payer OTHER, SELFPAY ==
--- OUTSIDE RECORDS SUMMARY | 2024-10-25 09:24 | XMS_ITS | Patient Health Record ---
Author Organization [facility] Address [address] [place] [address] Care Team Providers Care Pit Furnace Operator Name Role Phone Kenn Mujica Primary [...] Problem Status W/U Status Risk Notes Problem 69990526 Impacted cerumen (380.4) Active confirmed Problem Asthma (171406163) Asthma (493.90) Active confirmed Problem Back pain (730250856) Back pain (724.5) Active confirmed Problem 29109304 Smoking (305.1) Active confirmed Problem 96162692 Degenerative dis k disease (722.6) Active confirmed Problem 39058324 Otalgia (388.70) Active confirmed Plan Of Treatment [...] 07/03/2014 DRUG TOX MONITORING 9 W/CONF, URINE 11/10 [...] Coverage End Date Medicare [place] [address] GEGEASHANTICHERI JUNIOR [phone] [id number] Ld Mosley Self - patient is the insured Medicaid [address] [place] [phone] [id number] Ld Mosley Self - patient is the insured Medicaid Crossover [address] [place] [address] [id number] YAEL Mosley Chi Self - patient is the insured Medical (General) History Medical History History ICD Code asthma Surgical History Surgery Date(Month/Year) tonsillectomy bilateral tubes septoplasty
--- OUTSIDE RECORDS SUMMARY | 2024-10-25 09:24 | XMS_ITS ---
Author Organization [facility] Address [address] [place] [phone] Care Team Providers Care Ground Instructor Basic Name Role Phone Magen Lantigua Primary Care Provider [phone] REASON FOR VISIT refill request Medications Medication SIG (Take, Route, Frequency, Duration) Notes Start Date End Date Status OxyCODONE Hydrochloride 10 mg 1 tab(s) orally every 6 hours for 14 days fill on or after 09/30/24 Partial Fill upon Patient Request 10/13/2024 Active Social History Sex Assigned At : Social History Observation Description Sex Assigned At Female Encounters Encounter Location Date Provider Diagnosis [address] [phone] 10/13/2024 Magen Lantigua Chronic pain syndrome G89.4 Assessments Encounter Date Diagnosis (ICD Code) Assessment Notes Treatment Notes Treatment Clinical Notes 10/13/2024 Chronic pain syndrome (ICD-10 - G89.4) Followed by endocrine Plan Of Treatment Medication Medication Name Sig Start Date Stop Date Notes OxyCODONE Hydrochloride 10 mg 1 tab(s) orally every 6 hours for 14 days 10/13/2024 Partial Fill upon Patient Request Next Appt Details Provider Name:Laila Molina, 11/04/2024 10:00:00 AM, [address] [place] [address], [phone], Provider Name:Magen Lantigua, 11/04/2024 10:20:00 AM, [address] [place] [address], [phone], Progress Notes * Ld MOSLEY BDOB:1975 (49 yo F)Acc No.[id number]:10/13/2024 Patient:Ld WOO :1975???Age:49 Y???Sex:Female Address:[address] [place] [address], [place], [address] * Refills? Refill OxyCODONE Hydrochloride tablet, 10 mg, orally, 56 Tablet, 1 tab(s), every 6 hours, 14 days, Refills=0 * true * Date:? Generated for Albina severino/Noemy/eTransmitting on:?10/25/2024 09:24 AM EDT
--- OUTSIDE RECORDS SUMMARY | 2024-10-25 09:24 | XMS_ITS | Clinical Summary ---
Author Organization 299 [facility] Address [address] [place] [address] Phone Care Team Providers Care Client Support Administrator Name Role Phone Unavailable Primary Care Provider Unavailabl e Encounters Date Type Department Care Team Description 09/15/2024 Telephone General Surgery - [place] 175 [facility] [address] [place] [address] Walter Rose, DO Advice Only [...] Influencers of Health Screening 06/15/2022 COVID-19 Vaccine (2023-2 5 season) 2024 Influenza Vaccine (Season Ended) 2025 Cholesterol Screening (Lipid Panel) 06/10/2029 06/10/2024 HIB [...] age to complete this topic Meningococcal B Vaccine Aged Out No l onger eligible based on patient's age to complete [...] LAB CHEMISTRY METHOD 06/10/2024 5:50 PM EST [facility] Triglycerides 61 0 - 150 mg/dL LAB CHEMISTRY METHOD 06/10/2024 5:50 PM EST [facility] HDL 91 >=40 mg/dL LAB CHEMISTRY METHOD 06/10/2024 5:50 PM EST [facility] LDL Calculated 89 0 - 100 mg/dL LAB CHEMISTRY METHOD 06/10/2024 5:50 PM EST [facility] VLDL Cholesterol Fabian 12.2 mg/dL LAB CHEMISTRY METHOD 06/10/2024 5:50 PM EST [facility] Non HDL Chol. (LDL+VLDL) 101 <145 mg/dL LAB CHEMISTRY METHOD 06/10/2024 5:50 PM EST [facility] Chol/HDL Ratio 2.1 0.0 - 4.4 LAB CHEMISTRY METHOD 06/10/2024 5:50 PM EST [facility] Blood Venous blood specimen / Unknown 06/10/2024 1:30 PM EST 06/10/2024 5:16 PM EST us Magen Lantigua MD LAB BLOOD ORDERABLES Final Re sult [facility] [address] [place] [address], * MARISELA SCREENING DIGITAL (04/21/2019 10:45 AM EDT) Anatomical Region Laterality Modality Mammography 04/21/2019 10:0 4 AM EDT Narrative 04/21/2019 10:45 AM EDT [facility] Diagnostic Imaging Department [address] [place] [address] Patient: ??MELANY,CHI ?/Age/Sex: 1975 - - Unit#: ??[id number] ? Location/Status: ??SPDIMAM/REG CLI ? Mnemonic/Ordering Site: ??DIGSC/SPMAM Ordering Physician: ??DON SANCHEZ TECHNICAL WRITER Marisela Screening Digital - 04/21/19 - 1020 HISTORY: The patient is a 44-year-old female presenting for baseline screening mammography. ??The patient has a family history of breast cancer involving her mother, prior to menopause. FINDINGS: ??CC and MLO views of both breasts were obtained using full field digital mammography in the [employer] 2000-D unit. Computer aided detection with the [employer] Second Look 7.2-H was employed. In addition, [...] Imaging Evaluation. PQRI CPT II 3340F Code 17840, 25746 PQRI 225 CPT II 7025F Dictating Physician: ??KHANH WILLETT MD Electronically Signed by: ??KHANH WILLETT MD Dic Date/Time: ??04/21/19 1040 Sign date/Time: ??04/21/19 1045 Procedure Note Khanh Willett - 07/01/2022 [facility] Diagnostic Imaging Department [address] [place] [address] Patient: MELANYTETO /Age/Sex: 1975 - 44 - F Unit#: [id number] Location/Status: SPDIMAM/REG CLI Mnemonic/Ordering Site: [facility]IG[facility] Ordering Physician: DON SANCHEZ NP Marisela Screening Digital - 04/21/191020 HISTORY: The patient is a 44-year-old female presenting for baselinescreening mammography. The patient has a family history of breast cancer involvingher mother, prior to menopause. FINDINGS: CC and MLO views of both breasts were obtained using fullfield digital mammography in the [employer] 2000-D unit. Computer aideddetection with the iCAD [...] Imaging Evaluation. PQRI CPT II 3340F Code 93559, 35448 PQRI 225 CPT II 7025F Dictating Physician: KHANH WILLETT MD Electronically Signed by: KHANH WILLETT MD Dic Date/Time: 04/21/19 1040 Sign date/Time: 04/21/19 1045 Don Sanchez TECHNICAL WRITER IMG BI PROCEDURES Final Res ult from Last 3 Months or Most Recently Relevant to Health Maintenance Insurance [facility] MEDICARE Member Subscriber Plan / Payer (Ef fective 2023-Present) Name:Teto Mosley Relation to Subscriber:Self Name:Teto Mosley Payer ID:[id number] Group ID:[id number] Type:Not on file Address: [address] [place] [address]
--- OUTSIDE RECORDS SUMMARY | 2024-10-25 09:24 | XMS_ITS | Encounter Summary ---
Author Organization [facility] Address [address] [place] [address] Care Team Providers Care Radiochemical Technician Name Role Phone Unavailable Primary Care Provider Unavailabl e Encounter Details Date Type Department Care Team (Late st Contact Info) Description 06/10/2024 Lab Requisition [facility] - Main Lab [address] [facility] [place] [address] Magen Lantigua MD [address] [place], [place] Prediabetes; Chronic pain syndrome Social History [...] * SST tube (06/10/2024 1:30 PM EST) [facility] Extra Tube Hold for add-ons. 06/10/2024 7:01 PM EST [facility] Comment:Auto resulted. Blood Venous blood specimen / Unknown 06/10/2024 1:30 PM EST 06/10/2024 5:16 PM EST Magen Lantigua MD LAB BLOOD ORDERABLES Final Re sult Performing Organization Address [facility]/ZIP Co de Phone Number [facility] [address] [place] [address], [place] [phone] * (ABNORMAL) Glucose, random (06/10/2024 1:30 PM EST) [facility] Glucose 118(H) 70 - 100 mg/dL LAB CHEMISTRY METHOD 06/10/2024 5:33 PM EST [facility] Blood Venous blood specimen / Unknown 06/10/2024 1:30 PM EST 06/10/2024 5:16 PM EST Magen Lantigua MD LAB BLOOD ORDERABLES Final Re sult Performing Organization Address [facility] Co de Phone Number [facility] [address] [place] [address], [place] [phone] * Lipid panel with reflex to direct LDL (06/10/2024 1:30 PM EST) [facility] Cholesterol 192 0 - 200 mg/dL LAB CHEMISTRY METHOD 06/10/2024 5:50 PM EST [facility] Triglycerides 61 0 - 150 mg/dL LAB CHEMISTRY METHOD 06/10/2024 5:50 PM EST [facility] HDL 91 >=40 mg/dL LAB CHEMISTRY METHOD 06/10/2024 5:50 PM EST [facility] LDL Calculated 89 0 - 100 mg/dL LAB CHEMISTRY METHOD 06/10/2024 5:50 PM EST [facility] VLDL Cholesterol Fabian 12.2 mg/dL LAB CHEMISTRY METHOD 06/10/2024 5:50 PM EST [facility] Non HDL Chol. (LDL+VLDL) 101 <145 mg/dL LAB CHEMISTRY METHOD 06/10/2024 5:50 PM EST [facility] Chol/HDL Ratio 2.1 0.0 - 4.4 LAB CHEMISTRY METHOD 06/10/2024 5:50 PM EST [facility] Blood Venous blood specimen / Unknown 06/10/2024 1:30 PM EST 06/10/2024 5:16 PM EST Magen Lantigua MD LAB BLOOD ORDERABLES Final Re sult Performing Organization Address [facility]/ZIP Co de Phone Number [facility] [address] [place] [address], [place] [phone] * Hemoglobin A1c (06/10/2024 1:30 PM EST) Hemoglobin A1C 4.8 <6.5 % LAB CHEMISTRY METHOD 06/12/2024 11:38 AM EST [facility] Mean Bld Glu Estim. 91 mg/dL LAB CHEMISTRY METHOD 06/12/2024 11:38 AM [facility] Blood Venous blood specimen / Unknown 06/10/2024 1:30 PM EST 06/10/2024 5:16 PM EST Magen Lantigua MD LAB BLOOD ORDERABLES Final Re sult [facility] [address] [place] [address], [place] [phone] * Valproic acid level, total (06/10/2024 1:30 PM EST) Valproic Acid, Total 72 50 - 100 mcg/mL LAB CHEMISTRY METHOD 06/10/2024 5:33 PM EST [facility] Blood Venous blood specimen / Unknown 06/10/2024 1:30 PM EST 06/10/2024 5:16 PM EST us Magen Lantigua MD LAB BLOOD ORDERABLES Final Re sult [facility] [address] [place] [address], documented in this encounter Visit Diagnoses Diagnosis Prediabetes Other abnormal glucose Chronic pain syndrome documented in this encounter
--- OUTSIDE RECORDS SUMMARY | 2024-10-25 09:25 | XMS_ITS ---
Author Organization [facility] Address [address] [place] [id number] Care Team Providers Care Java Architect Name Role Phone Magen Lantigua Primary Care Provider [phone] Social History Sex Assigned At : Social History Observation Description Sex Assigned At Female Encounters Encounter Location Date Provider Diagnosis [address] [id number] 10/06/2024 Magen Lantigua Plan Of Treatment Next Appt Details Provider Name:Laila Molina, 11/04/2024 10:00:00 AM, [address] [place] [address], [phone], Provider Name:Magen Lantigua, 11/04/2024 10:20:00 AM, [address] [place] [address], [phone], Progress Notes * Ld MOSLEY BDOB:1975 (49 yo F)Acc No.[id number]:10/06/2024 Patient:?Ld MOSLEY :1975???Age:49 Y???Sex:Female Address:[facility] [place], [address] * true * Date:? Generated for Printi ng/Facostag/eTransmitting on:?10/25/2024 09:24 AM EDT
== END 2024-10-24 08:56 | disposition home or self-care (01) ==
LOC: HO.HOSX 08:55
PROVIDERS: Visit Provider Physician Assistant
DX: Z13.89 Encounter for screening for other disorder (principal)

== ENCOUNTER 2024-11-16 21:14 | Inpatient (IN) | payer OTHER, SELFPAY ==
[2024-11-16 21:25] VITALS: BP 125/82; PULSE 82; RESP 16; TEMP 36.1; O2SAT 97; BMI 25.8
--- NOTE | 2024-11-16 22:30 | ED_ITS ---
HPI - Psych General Chief Complaint: Psychiatric Symptoms Stated Complaint: Drug use Time Seen by Provider: 11/16/24 21:40 History of Present Illness ED Provider: Paetl Decker MD HPI Narrative: 49-year-old female presents for public new duty and intoxication. No witnessed traumatic injuries or signs of trauma. I came to examined and evaluated the patient at about 1203 on November 17. She was not cooperative with me she was under the blanket resting she was arousable but would not talk to me. Staff told me earlier she had been throwing things at them and not cooperative Related Data Home Medications ?Medication ?Instructions ?Recorded ?Confirmed celecoxib 200 mg capsule 200 mg PO BID 11/17/24 11/17/24 divalproex 500 mg tablet,extended 1,000 mg PO BEDTIME 11/17/24 11/17/24 release 24 hr duloxetine 30 mg capsule,delayed 30 mg PO BID 11/17/24 11/17/24 release methadone 10 mg/mL oral concentrate 5 mg PO BEDTIME 11/17/24 11/17/24 methadone 10 mg/mL oral concentrate 15 mg PO DAILY 11/17/24 11/17/24 trazodone 150 mg tablet 150 mg PO BEDTIME 11/17/24 11/17/24 Allergies Allergy/AdvReac Type Severity Reaction Status Date / Time amoxicillin [AMOXICILLIN] Allergy Intermediate RASH Verified 11/16/24 21:29 Penicillins [PENICILLINS] Allergy Intermediate RASH Verified 11/16/24 21:29 topiramate [From Topamax] AdvReac Unknown Unknown Verified 11/16/24 21:29 lamictal AdvReac Unknown Unknown Uncoded 11/16/24 21:29 [facility] Past Medical History Medical History (Updated 11/18/24 @ 18:19 by Eran Putnam MD) Osteoarthritis of knees, bilateral Bipolar I disorder Headache, migraine Cocaine use disorder Opioid use disorder, moderate, in early remission, on maintenance therapy, dependence Bipolar disorder with depression PTSD (post-traumatic stress disorder) Cardiac pacemaker in situ Opioid use disorder Seizure disorder Clavicle fracture Narcotic abuse Seizures Asthma COPD (chronic obstructive pulmonary disease) Surgical History History of ankle surgery (08/05/23) H/O right knee surgery H/O left knee surgery Social History Social History Household Members: Family Household Members Other:: Mother, father, daughter Housing: House Do you presently have visiting nurse or other home services: No Alcohol intake: never Patient Tobacco Use Status: Current everyday Tobacco user Tobacco use type: Cigarette Cigarettes Per Day: 6 Smoked in Last 30 Days: Yes e-Cigarette/Vaping Use: Currently Using Frequency of e-Cigarette/Vaping Use: daily Patient Interested in Nicotine Replacement: Yes Patient Given Instructions on How to Stop Smoking: No Second Hand Smoke Exposure: No Use of substances other than those prescribed or required for medical reasons: Yes Substance Use Type: Crack/Cocaine Substance Use Frequency: Occasionally Last Used Substance: Just Prior to Admission Currently Displaying Signs/Symptoms of Drug Intoxication Withdrawal: No Any prior treatment program specific to substance use: Yes (CHD) Have you been hit, kicked, punched, or otherwise hurt by someone within the past year? If so, by whom?: No Do you feel safe in your current relationship?: No Current Relationship Is there a partner from a previous relationship who is making you feel unsafe now?: No Are you made to feel afraid or neglected: No Spiritual Healthcare Practices: None Islam Healthcare Practices: None Cultural Healthcare Practices: None Advance Directives: Yes Advance Directives Information Provided: No Advance Directives on File: Yes Advance Directives Date on File: 09/29/23 Do you have thoughts of harming others: None Do you have a plan to hurt others: No Plan Recently lost weight without trying: Unsure How much weight loss: Unsure Eating poorly because of decreased appetite: No Nutrition screen score: 4 Nutrition Risks: No Nutritional Risk Patient : No : No Poor oral hygiene: No service: No Sexual orientation: Straight/Heterosexual Physical Exam 2 Vital Signs: Vital Signs: Last Vital Signs Temp 98.4 F 11/20/24 08:00 Pulse 72 11/20/24 08:00 Resp 18 11/20/24 08:00 BP 105/57 L 11/20/24 08:00 Pulse Ox 99 11/20/24 08:00 O2 Del Method Room Air 11/20/24 08:00 BMI result Body Mass Index 25.8 Const: Other: GENERAL: calm resting but not cooperative with questioning or examination HEAD/NECK: No visual trauma. EYES: Normal to inspection. No conjunctival erythema. No discharge. ENMT: no gross facial trauma RESPIRATORY: Respiratory effort normal. CARDIOVASCULAR: Additional details (Grossly well perfused). SKIN: No jaundice. NEUROLOGICAL: drowsy. Moving all extremities x4. Additional details (No gross motor deficits. Normal tone. ). PSYCHIATRIC: drowsy. No gross psychosis or toxidrome Course Reevaluation(s) Reevaluation #1: Date: 11/17/24 Provider: Nikunj Rocha MD 06:47 Continue physician observation: Patient was been in the emergency department for 9 hours and is waiting for care team evaluation. Patient in physician observation for psychiatric evaluation.? No acute events reported overnight. No current complaints. VS stable.? Patient will remain in the emergency department Behavioral Health Unit until disposition can be determined or until patient's symptoms improve over time. 17:30 Physician observation ended at 17:30. Patient to be admitted as inpatient to psychiatry Medications Administered Generic Name Dose Route Start Last Admin Trade Name Freq PRN Reason Stop Dose Admin Aripiprazole 2 mg 11/19/24 09:00 11/20/24 08:12 Aripiprazole 2 Mg Tablet PO 2 mg DAILY MELISSA Administration Celecoxib 200 mg 11/17/24 11:00 11/20/24 08:12 Celecoxib 200 Mg Capsule PO 200 mg BID MELISSA Administration Divalproex Sodium 1,000 mg 11/17/24 21:00 11/19/24 20:04 Divalproex Sodium Er 500 Mg Tab.Er.24h PO 1,000 mg BEDTIME MELISSA Administration Duloxetine HCl 30 mg 11/17/24 11:00 11/17/24 13:06 Duloxetine Hcl 30 Mg Capsule.Dr PO 30 mg BID MELISSA Administration Levetiracetam 500 mg 11/18/24 12:00 11/20/24 08:12 Levetiracetam 500 Mg Tablet PO 500 mg BID MELISSA Administration Methadone HCl 15 mg 11/18/24 08:00 11/20/24 07:32 Methadone Hcl 20 Mg/2 Ml Oral.Conc PO 15 mg DAILY MELISSA Administration Oxycodone HCl 10 mg 11/18/24 13:00 11/20/24 08:12 Oxycodone Hcl Immed Release 5 Mg Tablet PO 10 mg QID MELISSA Administration Trazodone HCl 150 mg 11/17/24 21:00 11/19/24 20:03 Trazodone Hcl 50 Mg Tablet PO 150 mg BEDTIME MELISSA Administration Discontinued Medications Generic Name Dose Route Start Last Admin Trade Name Job PRN Reason Stop Dose Admin Divalproex Sodium 500 mg 11/18/24 12:05 11/18/24 12:18 Divalproex Sodium 500 Mg Tablet. PO 11/18/24 12:06 500 mg ONCE ONE Administration Methadone HCl 15 mg 11/17/24 15:18 11/17/24 16:10 Methadone Hcl 20 Mg/2 Ml Oral.Conc PO 11/17/24 15:19 15 mg ONCE ONE Administration Potassium Chloride 40 meq 11/17/24 16:27 11/17/24 17:17 Potassium Chloride Packet 20 Meq Packet PO 11/17/24 16:28 40 meq ONCE ONE Administration Medical Decision Making Medical Decision Making MDM Narrative: 49-year-old female brought in by [facility] EMS after being nude in public and felt to be intoxicated. Patient appears to be drowsy but arousable but non cooperative may need to rest overnight for more comprehensive evaluation in the morning to exclude acute medical or psychiatric illness although illicit drug intoxication is the most likely cause of the patient's presentation Lab Data 11/17/24 06:34 11/18/24 08:13 Labs: Lab Results 11/17/24 11/17/24 11/17/24 Range/Units 06:34 06:44 06:45 WBC 4.3 L (4.8-10.8) X10*3/uL RBC 3.74 L (4.20-5.50) X10*6/uL Hgb 10.9 L (12.0-16.0) g/dl Hct 32.4 L (37.0-47.0) % MCV 86.6 (80.0-98.0) fL MCH 29.1 (27.0-33.0) pg MCHC 33.6 (31.0-35.0) g/dl RDW 14.6 (11.0-16.0) % Plt Count 196 D (160-400) X10*3/uL MPV 9.4 (9.4-12.3) fL Immature Gran % (Auto) 0.0 (0.0-0.4) % Neut % (Auto) 55.1 (45-73) % Lymph % (Auto) 32.9 (20-40) % Piute % (Auto) 8.2 (2-11) % Eos % (Auto) 3.1 (0-4) % Baso % (Auto) 0.7 (0-2) % Lymph # (Auto) 1.4 (1.2-4.9) X10*3/uL [place] # (Auto) 0.4 (0.1-1.2) X10*3/uL Eos # (Auto) 0.1 (0.0-0.4) X10*3/uL Baso # (Auto) 0.0 (0.0-0.2) X10*3/uL Abs Immat Gran (auto) 0.00 (0.00-0.03) X10*3/uL Absolute Neuts (auto) 2.4 (2.0-8.3) x10*3/uL Absolute Nucleated RBC 0.000 (0.0-0.012) X10*3/uL Nucleated RBC % (auto) 0.0 (0.0-0.2) /100WBC Sodium 140 (135-145) mmol/L Potassium 3.8 (3.3-5.1) mmol/L Chloride 107 (96-108) mmol/L Carbon Dioxide 24 (22-29) mmol/L Anion Gap 13 (12-20) BUN 16 (9-16) mg/dL Creatinine 0.67 (0.5-1.4) mg/dL Estim Creat Clear Calc 110.9 Estimated GFR > 60 Random Glucose 75 (60-115) mg/dL Calcium 9.0 (8.4-10.2) mg/dL Total Bilirubin 0.6 (0.0-1.0) mg/dL AST 24 (5-31) U/L ALT 25 (0-31) U/L Alkaline Phosphatase 66 (39-117) U/L Total Protein 5.7 L (6.5-8.0) g/dL Albumin 3.5 (3.5-5.0) g/dL Urine Color Yellow Urine Appearance Cloudy Urine pH 5.5 (5.0-9.0) Ur Specific [place] 1.015 (1.005-1.025) Urine Protein 30 (1+) H (Neg-Trace) mg/dL Urine Glucose (UA) Negative (Negative) mg/dL Urine Ketones Trace (Negative) mg/dL Urine Blood Small (1+) H (Negative) Urine Nitrite Negative (Negative) Ur Leukocyte Esterase Large (3+) H (Negative) Urine RBC 0-2 (0-2) /HPF Urine WBC 11-20 (0-5) /HPF Ur Squamous Epith Cells 11-20 (0-2) /HPF Urine Bacteria 2+ (None Seen) Hyaline Casts 0-2 (0-2) /LPF Urine Opiates Screen POSITIVE H (Not Detect) Ur Buprenorphine Scrn Not Detected (Not Detect) ng/mL Ur Oxycodone Screen Not Detected (Not Detect) ng/mL Urine Methadone Screen Positive H (Not Detect) ng/mL Urine Fentanyl Screen POSITIVE H (Not Detect) Ur Barbiturates Screen Not Detected (Not Detect) Valproic Acid 18.1 L (50.0-100.0) mcg/mL Ur Phencyclidine Scrn Not Detected (Not Detect) Ur Amphetamines Screen Not Detected (Not Detect) U Benzodiazepines Scrn Not Detected (Not Detect) Urine Cocaine Screen POSITIVE H (Not Detect) U Marijuana (THC) Screen Not Detected (Not Detect) Ethyl Alcohol < 10 mg/dL Discharge Plan Discharge Clinical Impression: Cocaine use disorder, Bipolar disorder with depression Patient Disposition: Admitted As Inpatient Interventions: Admission Worksheet (ED) Last Done: 11/17/24 17:30 Discharge Date/Time: 11/17/24 17:33
--- NOTE | 2024-11-17 | ECG_ITS ---
Test Reason : qtc check Blood Pressure : */* mmHG Vent. Rate : 70 BPM Atrial Rate : 70 BPM P-R Int : 150 ms QRS Dur : 88 ms QT Int : 410 ms P-R-T Axes : 52 33 79 degrees QTcB Int : 442 ms Normal sinus rhythm Normal ECG When compared with ECG of 18-May-2024 09:32, No significant change was found Referred By: Patel Decker Electronically Signed By: CLEVELAND LEDEZMA
--- OUTSIDE RECORDS SUMMARY | 2024-11-17 00:02 | XMS_ITS | Clinical Summary ---
Author Organization 299 [facility] Address [address] [place] [address] Phone Care Team Providers Care Electronic Tech Name Role Phone Unavailable Primary Care Provider Unavailabl e Encounters Date Type Department Care Team Description 09/15/2024 Telephone General Surgery - [place] [facility] [address] [place] [address] Walter Rose, DO Advice Only [...] LAB CHEMISTRY METHOD 06/10/2024 5:50 PM EST [facility] Triglycerides 61 0 - 150 mg/dL LAB CHEMISTRY METHOD 06/10/2024 5:50 PM EST [facility] HDL 91 >=40 mg/dL LAB CHEMISTRY METHOD 06/10/2024 5:50 PM EST [facility] LDL Calculated 89 0 - 100 mg/dL LAB CHEMISTRY METHOD 06/10/2024 5:50 PM EST [facility] VLDL Cholesterol Fabian 12.2 mg/dL LAB CHEMISTRY METHOD 06/10/2024 5:50 PM EST [facility] Non HDL Chol. (LDL+VLDL) 101 <145 mg/dL LAB CHEMISTRY METHOD 06/10/2024 5:50 PM EST [facility] Chol/HDL Ratio 2.1 0.0 - 4.4 LAB CHEMISTRY METHOD 06/10/2024 5:50 PM EST [facility] Blood Venous blood specimen / Unknown 06/10/2024 1:30 PM EST 06/10/2024 5:16 PM EST us Magen Lantigua MD LAB BLOOD ORDERABLES Final Re sult [facility] [address] [place] [address], * MARISELA SCREENING DIGITAL (04/21/2019 10:45 AM EDT) Anatomical Region Laterality Modality Mammography 04/21/2019 10:0 4 AM EDT Narrative 04/21/2019 10:45 AM EDT [facility] Diagnostic Imaging Department [address] [place] [address] Patient: ??MELANY,CHI ?/Age/Sex: 1975 - - Unit#: ??[id number] ? Location/Status: ??SPDIMAM/REG CLI ? Mnemonic/Ordering Site: ??DIGSC/SPMAM Ordering Physician: ??DON SANCHEZ LACQUER SIZER Marisela Screening Digital - 04/21/19 - 1020 HISTORY: The patient is a 44-year-old female presenting for baseline screening mammography. ??The patient has a family history of breast cancer involving her mother, prior to menopause. FINDINGS: ??CC and MLO views of both breasts were obtained using full field digital mammography in the [employer] 2000-D unit. Computer aided detection with the [employer] Second Look 7.2-H was employed. In addition, [...] Imaging Evaluation. PQRI CPT II 3340F Code 77973, 46619 PQRI 225 CPT II 7025F Dictating Physician: ??KHANH WILLETT MD Electronically Signed by: ??KHANH WILLETT MD Dic Date/Time: ??04/21/19 1040 Sign date/Time: ??04/21/19 1045 Procedure Note Khanh Willett - 07/01/2022 [facility] Diagnostic Imaging Department [address] [place] [address] Patient: MELANYTETO /Age/Sex: 1975 - 44 - F Unit#: [id number] Location/Status: SPDIMAM/REG CLI Mnemonic/Ordering Site: [facility]IGCT/[facility] Ordering Physician: DON SANCHEZ NP Marisela Screening Digital - 04/21/191020 HISTORY: The patient is a 44-year-old female presenting for baselinescreening mammography. The patient has a family history of breast cancer involvingher mother, prior to menopause. FINDINGS: CC and MLO views of both breasts were obtained using fullfield digital mammography in the [employer] 2000-D unit. Computer aideddetection with the [employer] [...] Imaging Evaluation. PQRI CPT II 3340F Code 50749, 18680 PQRI 225 CPT II 7025F Dictating Physician: KHANH WILLETT MD Electronically Signed by: KHANH WILLETT MD Dic Date/Time: 04/21/19 1040 Sign date/Time: 04/21/19 1045 Don Sanchez LACQUER SIZER IMG BI PROCEDURES Final Res ult from Last 3 Months or Most Recently Relevant to Health Maintenance Insurance [facility] MEDIC[facility] Member Subscriber Plan / Payer (Ef fective 2023-Present) Name:Teto Mosley Relation to Subscriber:Self Name:Teto Mosley Payer ID:[id number] Group ID:[id number] Type:Not on file Address: [address] [place] [address]
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
--- OUTSIDE RECORDS SUMMARY | 2024-11-17 00:02 | XMS_ITS | Patient Health Record ---
Author Organization [facility] Address [address] [place] [address] Care Team Providers Care Meat Selector Name Role Phone Kenn Mujica Primary [facility] [...] Problem Status W/U Status Risk Notes Problem 83640646 Impacted cerumen (380.4) Active confirmed Problem Asthma (966725600) Asthma (493.90) Active confirmed Problem Back pain (616742823) Back pain (724.5) Active confirmed Problem 40923476 Smoking (305.1) Active confirmed Problem 11371894 Degenerative dis k disease (722.6) Active confirmed Problem 48362050 Otalgia (388.70) Active confirmed Plan Of Treatment [...] [place] [address] [place] [address] [id number] Ld Mosley Self - patient is the insured Medicaid [address] [place] [phone] [id number] Ld Mosley Self - patient is the insured Medicaid [employer] [address] [place] [address] [id number] YAEL Mosley Chi Self - patient is the insured Medical (General) History Medical History History ICD Code asthma Surgical History Surgery Date(Month/Year) tonsillectomy bilateral tubes septoplasty
--- OUTSIDE RECORDS SUMMARY | 2024-11-17 00:03 | XMS_ITS ---
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 [place], [address] * * Date:?
[2024-11-17 05:41] VITALS: BP 96/49; PULSE 59; RESP 14; TEMP 37.1; O2SAT 97
--- NOTE | 2024-11-17 05:42 | MHC.EDTECH ---
Pt still refusing blood draw at this time. RN will talk to pt. Vitals updated.
[2024-11-17 06:38] LABS: MANUAL DIFF FLAG NO
[2024-11-17 06:39] LABS: Basophils Percent Auto 0.7 % (0-2); Eosinophils Absolute Auto 0.1 X10*3/uL (0.0-0.4); Eosinophils Percent Auto 3.1 % (0-4); Hematocrit 32.4 % (37.0-47.0); Hemoglobin 10.9 g/dl (12.0-16.0); Lymphocytes Absolute Auto 1.4 X10*3/uL (1.2-4.9); Lymphocytes Percent Auto 32.9 % (20-40); Mean Corpuscular HGB Conc 33.6 g/dl (31.0-35.0); Mean Corpuscular Hemoglobin 29.1 pg (27.0-33.0); Mean Corpuscular Volume 86.6 fL (80.0-98.0); Mean Platelet Volume 9.4 fL (9.4-12.3); Monocytes Absolute Auto 0.4 X10*3/uL (0.1-1.2); Monocytes Percent Auto 8.2 % (2-11); Neutrophils Absolute Auto 2.4 x10*3/uL (2.0-8.3); Neutrophils Percent Auto 55.1 % (45-73); Platelet Count 196 X10*3/uL (160-400); Red Blood Count 3.74 X10*6/uL (4.20-5.50); Red Cell Distribution Width 14.6 % (11.0-16.0); White Blood Count 4.3 X10*3/uL (4.8-10.8)
--- NOTE | 2024-11-17 06:44 | MHC.CARE ---
Collateral call to mother Juana at [phone] on 11/16 at 10pm. Mother reports patient has been running the streets since Thursday, resulting in increased cocaine use and symptoms of hakan. She reports patient was observed taking her clothes off and banging on windows in the home, stating she has also been delusional. Mother states patient went to [facility] on [address] on 10/28 and was discharged last . Her medications were changed, but it isn't clear what those changes were. Mother states patient does not want her involved in her care. Patient's mother is recommending terminal worker treatment. States patient has a hx of dual program admissions in the [place] area, has been section 35 three times, but does respond well to treatment. Her last inpatient psych admission was a year ago. Mother can be contacted at the number provided above.
[2024-11-17 06:56] LABS: Valproate 18.1 mcg/mL (50.0-100.0)
[2024-11-17 07:02] LABS: Alanine Aminotransferase 25 U/L (0-31); Albumin Level 3.5 g/dL (3.5-5.0); Alkaline Phosphatase 66 U/L (39-117); Anion Gap 13 (12-20); Aspartate Amino Transferase 24 U/L (5-31); Bilirubin Total 0.6 mg/dL (0.0-1.0); Blood Urea Nitrogen 16 mg/dL (9-16); Carbon Dioxide 24 mmol/L (22-29); Chloride 107 mmol/L (96-108); Creatinine Clr Calc Pharmacy 110.9; Estimated Glomerular Filt Rate > 60; Ethanol < 10 mg/dL; Glucose Random 75 mg/dL (60-115); Potassium 3.8 mmol/L (3.3-5.1); Sodium 140 mmol/L (135-145); Total Protein 5.7 g/dL (6.5-8.0)
[2024-11-17 07:06] LABS: Appearance Urine Cloudy; Color Urine Yellow; Glucose Urine UA Negative (Negative); Leukocyte Esterase Urine Large (3+) (Negative); Nitrite Urine Negative (Negative); PH 5.5 (5.0-9.0); Specific Gravity - Urine 1.015 (1.005-1.025); UMIC TRIGGER UA YES; Urine Blood Small (1+) (Negative); Urine Ketones Trace mg/dL (Negative); Urine Protein 30 (1+) mg/dL (Neg-Trace)
[2024-11-17 07:12] LABS: Amphetamine Screen Urine Not Detected (Not Detect); Barbiturates, Urine Not Detected (Not Detect); Benzodiazepines Screen Urine Not Detected (Not Detect); Buprenorphine Scr Not Detected (Not Detect); Cannabinoid Screen Urine Not Detected (Not Detect); Cocaine Screen Urine POSITIVE (Not Detect); Fentanyl, urine POSITIVE (Not Detect); Methadone Screen, Urine Positive (Not Detect); Opiate Screen Urine POSITIVE (Not Detect); Oxycodone Screen Urine Not Detected (Not Detect); Phencyclidine Screen Urine Not Detected (Not Detect)
[2024-11-17 07:25] LABS: Bacteria Urine 2+ (None Seen); Hyaline Casts Urine 0-2 /LPF (0-2); RBC Urine 0-2 /HPF (0-2)
[2024-11-17] MEDS: DULoxetine HCl 30 MG CAPSULE.DR PO (13:06)
[2024-11-17] MEDS: Celecoxib 200 MG CAPSULE PO (13:06)
[2024-11-17 14:51] VITALS: BP 116/67; PULSE 91; RESP 16; TEMP 36.4; O2SAT 99
--- NOTE | 2024-11-17 14:52 | PC.NURSE ---
Methadone dose verified with CESIA Fernandez at [facility]. Patient receives take home bottles for split dose methadone dosing. patient reports last took both methadone doses yesterday (15mg in the AM, and 5mg at 6pm last night).
--- NOTE | 2024-11-17 15:13 | HE.PHANOTE ---
METHADONE CONFIRMATION FORM 15 IN AM AND 5 MG IN EVENING. LAST DOSE 11/16
[2024-11-17] MEDS: methADONE HCl 20 MG/2 ML ORAL.CONC 15 MG PO (16:10)
[2024-11-17] MEDS: Potassium Chloride Packet 20 MEQ PACKET 40 MEQ PO (17:17)
--- NOTE | 2024-11-17 20:05 | PC.ADMIT ---
Ld jerome is a 49-year-old,? Persian speaking female admitted to from the POD at 17:30. She was irritable but oriented . Ld arrived on the unit by wheelchair and was brought to her room by wheelchair. She stated that she is having issues walking due to both knees needing to be replaced and hardware in her left ankle. She signed a CV in the POD. Upon arrival skin check and vitals done. Ld was brought to her room by wheelchair where she immediately went to sleep, did not want to take part in the admission process,just go to bed.? but it was established that she has uppers for dentures and a pacemaker and that she wants to get back on her medications. Tox screen positive MTD, fentanyl, opiate and cocaine. Ld reports wanting to get back on her prescribed meds. Methadone verified through [email or web address] Application [facility].?Per POD RN her father came to visit but she refused to see him. ?Per careteam assessment, she was seen in the [facility] ED after she presented via ambulance from the community after she was [facility]. Upon arrival to ED patient was uncooperative, not arousable and would not engage verbally with ED staff or ED doctor, she was throwing objects and refused labs. Patient is well known to [facility] and behavioral health team, she was last assessed on 09/23/24 after she was found unresponsive in the community and required Narcan due to overdoes on heroin. Patient has previous diagnosis of PTSD, bipolar disorder with depression, Opioid use disorder and cocaine use. She has a history of severe depression and anxiety and often uses substances to self-medicate and does not take medications as prescribed.
--- NOTE | 2024-11-17 23:30 | PC.NURSE ---
Pt refused HS meds @2200. She state that I cannot take any Meds without my Methadone tonight, I am having withdrawal and I want my Methadone .
[2024-11-18 08:00] VITALS: BP 112/69; PULSE 60; RESP 17; TEMP 36.2; O2SAT 97
[2024-11-18] MEDS: methADONE HCl 20 MG/2 ML ORAL.CONC 15 MG PO (08:18)
[2024-11-18 08:33] LABS: Estimated Average Glucose 103 mg/dL; Hemoglobin A1C 100.7303 umol/L; Hemoglobin A1c % 5.2 % (<6.0); Total Hemoglobin (HGBA1C) 3040.4941 umol/L
[2024-11-18] MEDS: Celecoxib 200 MG CAPSULE PO ×2 (08:33→21:16)
[2024-11-18 08:35] LABS: Ammonia 41 umol/L (13-55)
[2024-11-18 08:46] LABS: Alanine Aminotransferase 21 U/L (0-31); Albumin Level 3.5 g/dL (3.5-5.0); Alkaline Phosphatase 65 U/L (39-117); Anion Gap 10 (12-20); Aspartate Amino Transferase 20 U/L (5-31); Bilirubin Total 0.4 mg/dL (0.0-1.0); Blood Urea Nitrogen 18 mg/dL (9-16); Calcium 9.2 mg/dL (8.4-10.2); Carbon Dioxide 28 mmol/L (22-29); Chloride 108 mmol/L (96-108); Cholesterol 160 mg/dL (<200); Creatinine Clr Calc Pharmacy 107.7; Estimated Glomerular Filt Rate > 60; Glucose Random 92 mg/dL (60-115); HDL Cholesterol 69 mg/dL (>40); LDL Cholesterol Calculated 81 mg/dL (<100); Potassium 3.8 mmol/L (3.3-5.1); Sodium 142 mmol/L (135-145); Total Protein 5.7 g/dL (6.5-8.0); Triglycerides 50 mg/dL (<150)
[2024-11-18 09:03] LABS: TSH reflex Free T4 0.09 uIU/mL (0.32-4.0)
[2024-11-18 09:40] LABS: Free T4 (Free Thyroxine) 0.98 ng/dL (0.71-1.85)
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
[2024-11-18] MEDS: levETIRAcetam 500 MG TABLET PO ×2 (12:18→21:16)
[2024-11-18] MEDS: oxyCODONE HCl Immed Release 5 MG TABLET 10 MG PO ×3 (12:18→21:16)
[2024-11-18] MEDS: Divalproex Sodium 500 MG TABLET.DR PO (12:18)
[2024-11-18 16:12] LABS: CT PCR NOT DETECTED (Not Detect.); NG PCR NOT DETECTED (Not Detect.)
[2024-11-18 20:00] VITALS: BP 95/50; PULSE 68; TEMP 36.4; O2SAT 94
[2024-11-18] MEDS: Divalproex Sodium ER 500 MG TAB.ER.24H 1000 MG PO (21:14)
[2024-11-18] MEDS: traZODone HCL 50 MG TABLET 150 MG PO (21:16)
--- NOTE | 2024-11-19 07:32 | P.PNPSI_ITS ---
Subjective Subjective Date of Service: 11/19/24 Reason For Visit: decompensation Interim History: Met with pt, discussed with the team. Reports she feels irritable, cannot eat as she needs denture adhesive (team will supply). Anxiety still present. She is visable in the milieu, with peers and is engaged with the team. Reports medications are intact-she asks that no changes be made today. Medication Compliance: Yes Side effects from medications: No Attending Groups: Intermittent Review of Systems Review of Systems As indicated in HPI Mental Status Exam Mental Status Exam Patient Appearance: Fatigued and Appropriate Patient Orientation: Person, Place, Time and Situation Level of Consciousness: Alert Patient Behavior: Talkative and Good Eye Contact Mood Description: Constricted and Anxious Affect Description: Constricted Patient Cognition Impaired: No Ability to Follow Directions: Good Speech Pattern: Spontaneous Speech Memory Description: Intact Hallucinations: None Delusions: Not Present Thought Process: Intact Thought Content: positive for Intact and positive for Circumstantial Judgement: Fair Diagnostics Vital Signs (24Hr): Vital Signs - 24 hr 11/18/24 08:00 11/18/24 20:00 Temperature 97.1 F 97.5 F Pulse Rate 60 68 Respiratory Rate 17 Blood Pressure 112/69 95/50 L Pulse Oximetry 97 94 Oxygen Delivery Method Room Air Room Air BMI result Body Mass Index 25.8 Labs 11/17/24 06:34 11/18/24 08:13 Labs: Laboratory Results - last 48 hr 11/18/24 11/18/24 08:13 14:00 Sodium 142 Potassium 3.8 Chloride 108 Carbon Dioxide 28 Anion Gap 10 L BUN 18 H Creatinine 0.69 Estim Creat Clear Calc 107.7 Estimated GFR > 60 Random Glucose 92 Estimat Average Glucose 103 Hemoglobin A1c % 5.2 Calcium 9.2 Total Bilirubin 0.4 AST 20 ALT 21 Alkaline Phosphatase 65 Ammonia 41 Total Protein 5.7 L Albumin 3.5 Triglycerides 50 Cholesterol 160 LDL Cholesterol, Calc 81 HDL Cholesterol 69 TSH 0.09 L Free T4 0.98 Chlam trachomat DNA PCR NOT DETECTED N.gonorrhoeae DNA (PCR) NOT DETECTED Medications Medications Current Medications Acetaminophen (Acetaminophen 325 Mg Tablet) 650 mg PO Q6H PRN PRN Reason: Headache/Pain, Scale 1-10 Al Hydroxide/Mg Hydroxide (Magnesium Hydrox/Alum Hydrox 30 Ml Oral.Susp) 30 ml PO Q6H PRN PRN Reason: Heartburn/Nausea Aripiprazole (Aripiprazole 2 Mg Tablet) 2 mg PO DAILY [facility] Celecoxib (Celecoxib 200 Mg Capsule) 200 mg PO BID [facility] Last Admin: 11/18/24 21:16 Dose: 200 mg Divalproex Sodium (Divalproex Sodium Er 500 Mg Tab.Er.24h) 1,000 mg PO BEDTIME [facility] Last Admin: 11/18/24 21:14 Dose: 1,000 mg Duloxetine HCl (Duloxetine Hcl 30 Mg Capsule.Dr) 30 mg PO BID [facility] Last Admin: 11/17/24 13:06 Dose: 30 mg Hydroxyzine HCl (Hydroxyzine Hcl 25 Mg Tablet) 25 mg PO Q6H PRN PRN Reason: mild anxiety Levetiracetam (Levetiracetam 500 Mg Tablet) 500 mg PO BID [facility] Last Admin: 11/18/24 21:16 Dose: 500 mg Magnesium Hydroxide (Milk Of Magnesia 30 Ml Oral.Susp) 30 ml PO DAILY PRN PRN Reason: Constipation Methadone HCl (Methadone Hcl 20 Mg/2 Ml Oral.Conc) 15 mg PO DAILY [facility] Last Admin: 11/18/24 08:50 Dose: Not Given Nicotine Polacrilex (Nicotine Polacrilex 2 Mg Gum) 4 mg BUCCAL Q2H PRN PRN Reason: Nicotine Cravings Olanzapine (Olanzapine 5 Mg Tablet) 5 mg PO TID PRN PRN Reason: agitation Oxycodone HCl (Oxycodone Hcl Immed Release 5 Mg Tablet) 10 mg PO QID [facility] Last Admin: 11/18/24 21:16 Dose: 10 mg Trazodone HCl (Trazodone Hcl 50 Mg Tablet) 150 mg PO BEDTIME [facility] Last Admin: 11/18/24 21:16 Dose: 150 mg Trazodone HCl (Trazodone Hcl 50 Mg Tablet) 50 mg PO BEDTIME MRX1 PRN PRN Reason: Insomnia Allergies Allergies Allergy/AdvReac Type Severity Reaction Status Date / Time amoxicillin [AMOXICILLIN] Allergy Intermediate RASH Verified 11/16/24 21:29 Penicillins [PENICILLINS] Allergy Intermediate RASH Verified 11/16/24 21:29 topiramate [From Topamax] AdvReac Unknown Unknown Verified 11/16/24 21:29 lamictal AdvReac Unknown Unknown Uncoded 11/16/24 21:29 Assessment & Plan Assessment & Plan (1) Bipolar I disorder: Status: Acute Code(s): F31.9 - Bipolar disorder, unspecified (2) PTSD (post-traumatic stress disorder): Status: Acute Code(s): F43.10 - Post-traumatic stress disorder, unspecified (3) Opioid use disorder, moderate, in early remission, on maintenance therapy, dependence: Status: Acute Code(s): F11.21 - Opioid dependence, in remission (4) Cocaine use disorder: Status: Acute Code(s): F14.10 - Cocaine abuse, uncomplicated (5) Cardiac pacemaker in situ: Status: Acute Code(s): Z95.0 - Presence of cardiac pacemaker (6) Closed left fibular fracture: Qualifiers: Encounter type: initial encounter Fibula location: distal Status: Acute Code(s): S82.402A - Unspecified fracture of shaft of left fibula, initial encounter for closed fracture (7) Fracture of medial malleolus, left, closed: Qualifiers: Encounter type: subsequent encounter Fracture alignment: displaced F racture healing: with routine healing Qualified Code(s): S82.52XD - Displaced fracture of medial malleolus of left tibia, subsequent encounter for closed fracture with routine healing Status: Acute Code(s): S82.52XA - Displaced fracture of medial malleolus of left tibia, initial encounter for closed fracture (8) Seizure: Status: Acute Code(s): R56.9 - Unspecified convulsions (9) Osteoarthritis of knees, bilateral: Status: Acute Code(s): M17.0 - Bilateral primary osteoarthritis of knee Plan Patient is a 49-year-old female with history of bipolar disorder, PTSD, cocaine and opiate use disorder, seizure disorder, left foot fracture status post surgical repair with plates, osteoarthritis b/l knees pending knee replacement, pacemaker (status post arrhythmia from methadone) who presents for manic episode in the face of relapse and cocaine and going off her medication. Patient reports that she has been sober from opiates for 3 years; during the spring summer and fall she remains stable but when winter comes she struggles with seasonal affect disorder and the approaching anniversary of her 's in September. She says that this time of year is always difficult for her and for the past 2 or 3 months she will remain sober for about 2 weeks and then chart picker [cocaine] for 1 day and repeat this pattern. Patient remains on her medications and lives with her mother and stepfather however supportive. This past week, patient was feeling particularly sad about her loved one, got into an argument with her parents and left the house to use crack cocaine. Although she usually comes back after day this time she called her mother and said she is not coming back but wants her medications; her mother in an effort to get the patient safely home, refused to give her any of her medications including her Keppra, Depakote and scheduled oxycodone which she has been on for several years (mother also called PCP prescriber who did not refill oxycodone). Patient's depression worsened and so did her drug use; due to oxycodone withdrawal and increasing pain, patient used heroin for the 1st time in 3 years which she deeply regrets. Patient became manic, and does know how she ended up naked in the bushes. Patient reports she has been manic for the past week and can tell the difference between manic symptoms and cocaine high; explaining that even now, days after the cocaine use, her mind is still racing and she still can not sleep dot dot dot patient reports having recent seizures as well. She very much wants to get back on her medications. No SI. Formulation/clinical reason: Patient presents as distraught and hypomanic, talking fast and having trouble sleeping. Very much wants to get back on medications which he says are helpful and being restarted. Usability Architect reviewed [facility] and patient is prescribed oxycodone 10 mg q.i.d. which patient says she has been on for years; patient reports that she was taken off methadone due to an arrhythmia and now has a pacemaker (patient was on methadone 222 mg, developed an arrhythmia, received a pacemaker and was tapered down to current dose of 15 mg). Will restart home medications. Patient says she was recently started on Abilify 2 mg to help prevent manic episodes. 11/19: Continue tx Plan: CV Q 15 minute Restart Keppra Restart Depakote Restart oxycodone 10 mg q.i.d. scheduled (patient is prescribed this as an outpatient for years; not worth risking increase of methadone to deal with pain) Continue methadone 15 mg daily Restart Abilify 2 mg HOLD duloxetine 30 mg b.i.d. until hakan subsides Restart Celebrex 200 mg b.i.d. -patient asks for STD testing since she has no idea why she was naked Patient gave permission to call family to gather collateral Reason for continued inpatient stay Substantial Risk for: rapid decompensation Time Spent With Patient Time: Total time managing care of this patient today ____ minutes.
[2024-11-19] MEDS: methADONE HCl 20 MG/2 ML ORAL.CONC 15 MG PO (07:52)
[2024-11-19 08:00] VITALS: BP 104/62; PULSE 80; RESP 18; TEMP 36.4; O2SAT 99
[2024-11-19] MEDS: ARIPiprazole 2 MG TABLET PO (08:40)
[2024-11-19] MEDS: oxyCODONE HCl Immed Release 5 MG TABLET 10 MG PO ×4 (08:40→20:04)
[2024-11-19] MEDS: Celecoxib 200 MG CAPSULE PO ×2 (08:40→20:04)
[2024-11-19] MEDS: levETIRAcetam 500 MG TABLET PO ×2 (08:40→20:04)
[2024-11-19 19:38] VITALS: BP 99/56; PULSE 77; TEMP 36.5; O2SAT 92
[2024-11-19] MEDS: traZODone HCL 50 MG TABLET 150 MG PO (20:03)
[2024-11-19] MEDS: Divalproex Sodium ER 500 MG TAB.ER.24H 1000 MG PO (20:04)
--- NOTE | 2024-11-20 05:50 | HO.PSYCHPN ---
Subjective Subjective Date of Service: 11/20/24 Reason For Visit: decompensation Interim History: Pt seen in [facility]. Discussed with team. No group participation today. Minimal time in milieu. Isolative. Reports depressive, anxious sx. Accepting medications Medication Compliance: Yes Side effects from medications: No Attending Groups: No Review of Systems Acute medical concerns: No Medical Review of Systems: unchanged Review of Systems Review of Systems Chronic medical issues Mental Status Exam Mental Status Exam Patient Appearance: Fatigued and Appropriate Patient Orientation: Person, Place, Time and Situation Level of Consciousness: Alert Patient Behavior: Talkative and Good Eye Contact Mood Description: Constricted and Anxious Affect Description: Constricted Patient Cognition Impaired: No Ability to Follow Directions: Good Speech Pattern: Spontaneous Speech Memory Description: Intact Hallucinations: None Delusions: Not Present Thought Process: Intact Thought Content: positive for Intact and positive for Circumstantial Judgement: Fair Diagnostics Vital Signs (24Hr): Vital Signs - 24 hr 11/19/24 08:00 11/19/24 19:38 Temperature 97.6 F 97.7 F Pulse Rate 80 77 Respiratory Rate 18 Blood Pressure 104/62 99/56 L Pulse Oximetry 99 92 Oxygen Delivery Method Room Air Room Air BMI result Body Mass Index 25.8 Labs 11/17/24 06:34 11/18/24 08:13 Labs: Laboratory Results - last 48 hr 11/18/24 11/18/24 08:13 14:00 Sodium 142 Potassium 3.8 Chloride 108 Carbon Dioxide 28 Anion Gap 10 L BUN 18 H Creatinine 0.69 Estim Creat Clear Calc 107.7 Estimated GFR > 60 Random Glucose 92 Estimat Average Glucose 103 Hemoglobin A1c % 5.2 Calcium 9.2 Total Bilirubin 0.4 AST 20 ALT 21 Alkaline Phosphatase 65 Ammonia 41 Total Protein 5.7 L Albumin 3.5 Triglycerides 50 Cholesterol 160 LDL Cholesterol, Calc 81 HDL Cholesterol 69 TSH 0.09 L Free T4 0.98 Chlam trachomat DNA PCR NOT DETECTED N.gonorrhoeae DNA (PCR) NOT DETECTED Medications Medications Current Medications Acetaminophen (Acetaminophen 325 Mg Tablet) 650 mg PO Q6H PRN PRN Reason: Headache/Pain, Scale 1-10 Al Hydroxide/Mg Hydroxide (Magnesium Hydrox/Alum Hydrox 30 Ml Oral.Susp) 30 ml PO Q6H PRN PRN Reason: Heartburn/Nausea Aripiprazole (Aripiprazole 2 Mg Tablet) 2 mg PO DAILY [facility] Last Admin: 11/19/24 08:40 Dose: 2 mg Celecoxib (Celecoxib 200 Mg Capsule) 200 mg PO BID [facility] Last Admin: 11/19/24 20:04 Dose: 200 mg Divalproex Sodium (Divalproex Sodium Er 500 Mg Tab.Er.24h) 1,000 mg PO BEDTIME [facility] Last Admin: 11/19/24 20:04 Dose: 1,000 mg Duloxetine HCl (Duloxetine Hcl 30 Mg Capsule.Dr) 30 mg PO BID [facility] Last Admin: 11/17/24 13:06 Dose: 30 mg Hydroxyzine HCl (Hydroxyzine Hcl 25 Mg Tablet) 25 mg PO Q6H PRN PRN Reason: mild anxiety Levetiracetam (Levetiracetam 500 Mg Tablet) 500 mg PO BID [facility] Last Admin: 11/19/24 20:04 Dose: 500 mg Magnesium Hydroxide (Milk Of Magnesia 30 Ml Oral.Susp) 30 ml PO DAILY PRN PRN Reason: Constipation Methadone HCl (Methadone Hcl 20 Mg/2 Ml Oral.Conc) 15 mg PO DAILY [facility] Last Admin: 11/19/24 07:52 Dose: 15 mg Nicotine Polacrilex (Nicotine Polacrilex 2 Mg Gum) 4 mg BUCCAL Q2H PRN PRN Reason: Nicotine Cravings Olanzapine (Olanzapine 5 Mg Tablet) 5 mg PO TID PRN PRN Reason: agitation Oxycodone HCl (Oxycodone Hcl Immed Release 5 Mg Tablet) 10 mg PO QID [facility] Last Admin: 11/19/24 20:04 Dose: 10 mg Trazodone HCl (Trazodone Hcl 50 Mg Tablet) 150 mg PO BEDTIME [facility] Last Admin: 11/19/24 20:03 Dose: 150 mg Trazodone HCl (Trazodone Hcl 50 Mg Tablet) 50 mg PO BEDTIME MRX1 PRN PRN Reason: Insomnia Allergies Allergies Allergy/AdvReac Type Severity Reaction Status Date / Time amoxicillin [AMOXICILLIN] Allergy Intermediate RASH Verified 11/16/24 21:29 Penicillins [PENICILLINS] Allergy Intermediate RASH Verified 11/16/24 21:29 topiramate [From Topamax] AdvReac Unknown Unknown Verified 11/16/24 21:29 lamictal AdvReac Unknown Unknown Uncoded 11/16/24 21:29 Assessment & Plan Assessment & Plan (1) Bipolar I disorder: Status: Acute Code(s): F31.9 - Bipolar disorder, unspecified (2) PTSD (post-traumatic stress disorder): Status: Acute Code(s): F43.10 - Post-traumatic stress disorder, unspecified (3) Opioid use disorder, moderate, in early remission, on maintenance therapy, dependence: Status: Acute Code(s): F11.21 - Opioid dependence, in remission (4) Cocaine use disorder: Status: Acute Code(s): F14.10 - Cocaine abuse, uncomplicated (5) Cardiac pacemaker in situ: Status: Acute Code(s): Z95.0 - Presence of cardiac pacemaker (6) Closed left fibular fracture: Qualifiers: Encounter type: initial encounter Fibula location: distal Status: Acute Code(s): S82.402A - Unspecified fracture of shaft of left fibula, initial encounter for closed fracture (7) Fracture of medial malleolus, left, closed: Qualifiers: Encounter type: subsequent encounter Fracture alignment: displaced Fracture healing: with routine healing Qualified Code(s): S82.52XD - Displaced fracture of medial malleolus of left tibia, subsequent encounter for closed fracture with routine healing Status: Acute Code(s): S82.52XA - Displaced fracture of medial malleolus of left tibia, initial encounter for closed fracture (8) Seizure: Status: Acute Code(s): R56.9 - Unspecified convulsions (9) Osteoarthritis of knees, bilateral: Status: Acute Code(s): M17.0 - Bilateral primary osteoarthritis of knee Plan Patient is a 49-year-old female with history of bipolar disorder, PTSD, cocaine and opiate use disorder, seizure disorder, left foot fracture status post surgical repair with plates, osteoarthritis b/l knees pending knee replacement, pacemaker (status post arrhythmia from methadone) who presents for manic episode in the face of relapse and cocaine and going off her medication. Patient reports that she has been sober from opiates for 3 years; during the spring summer and fall she remains stable but when winter comes she struggles with seasonal affect disorder and the approaching anniversary of her 's in September. She says that this time of year is always difficult for her and for the past 2 or 3 months she will remain sober for about 2 weeks and then grape picker [cocaine] for 1 day and repeat this pattern. Patient remains on her medications and lives with her mother and stepfather however supportive. This past week, patient was feeling particularly sad about her loved one, got into an argument with her parents and left the house to use crack cocaine. Although she usually comes back after day this time she called her mother and said she is not coming back but wants her medications; her mother in an effort to get the patient safely home, refused to give her any of her medications including her Keppra, Depakote and scheduled oxycodone which she has been on for several years (mother also called PCP prescriber who did not refill oxycodone). Patient's depression worsened and so did her drug use; due to oxycodone withdrawal and increasing pain, patient used heroin for the 1st time in 3 years which she deeply regrets. Patient became manic, and does know how she ended up naked in the bushes. Patient reports she has been manic for the past week and can tell the difference between manic symptoms and cocaine high; explaining that even now, days after the cocaine use, her mind is still racing and she still can not sleep dot dot dot patient reports having recent seizures as well. She very much wants to get back on her medications. No SI. Formulation/clinical reason: Patient presents as distraught and hypomanic, talking fast and having trouble sleeping. Very much wants to get back on medications which he says are helpful and being restarted. Patient Services Manager reviewed [facility] and patient is prescribed oxycodone 10 mg q.i.d. which patient says she has been on for years; patient reports that she was taken off methadone due to an arrhythmia and now has a pacemaker (patient was on methadone 222 mg, developed an arrhythmia, received a pacemaker and was tapered down to current dose of 15 mg). Will restart home medications. Patient says she was recently started on Abilify 2 mg to help prevent manic episodes. 11/20: Continue tx Plan: CV Q 15 minute Restart Keppra Restart Depakote Restart oxycodone 10 mg q.i.d. scheduled (patient is prescribed this as an outpatient for years; not worth risking increase of methadone to deal with pain) Continue methadone 15 mg daily Restart Abilify 2 mg HOLD duloxetine 30 mg b.i.d. until hakan subsides Restart Celebrex 200 mg b.i.d. -patient asks for STD testing since she has no idea why she was naked Patient gave permission to call family to gather collateral Reason for continued inpatient stay Substantial Risk for: rapid decompensation Time Spent With Patient Time: Total time managing care of this patient today ____ minutes.
[2024-11-20] MEDS: methADONE HCl 20 MG/2 ML ORAL.CONC 15 MG PO (07:32)
[2024-11-20 08:00] VITALS: BP 105/57; PULSE 72; RESP 18; TEMP 36.9; O2SAT 99
[2024-11-20] MEDS: ARIPiprazole 2 MG TABLET PO (08:12)
[2024-11-20] MEDS: oxyCODONE HCl Immed Release 5 MG TABLET 10 MG PO ×4 (08:12→20:52)
[2024-11-20] MEDS: Celecoxib 200 MG CAPSULE PO ×2 (08:12→20:52)
[2024-11-20] MEDS: levETIRAcetam 500 MG TABLET PO ×2 (08:12→20:52)
[2024-11-20] MEDS: OLANZapine 5 MG TABLET PO (15:45)
[2024-11-20 19:36] VITALS: BP 93/58; PULSE 84; TEMP 36.6; O2SAT 95
[2024-11-20] MEDS: Divalproex Sodium ER 500 MG TAB.ER.24H 1000 MG PO (20:53)
[2024-11-20] MEDS: traZODone HCL 50 MG TABLET 150 MG PO (20:53)
[2024-11-21 07:37] LABS: HIV AB/AG Nonreactive (Nonreactive); HIV Num 1 0.08 S/CO (0.00-0.99)
[2024-11-21] MEDS: methADONE HCl 20 MG/2 ML ORAL.CONC 15 MG PO (07:53)
[2024-11-21] MEDS: Celecoxib 200 MG CAPSULE PO ×2 (08:49→20:11)
[2024-11-21] MEDS: oxyCODONE HCl Immed Release 5 MG TABLET 10 MG PO ×4 (08:49→20:12)
[2024-11-21] MEDS: levETIRAcetam 500 MG TABLET PO ×2 (08:50→20:11)
[2024-11-21] MEDS: ARIPiprazole 2 MG TABLET PO (08:50)
--- NOTE | 2024-11-21 10:21 | HO.PSYCHPN ---
Subjective Subjective Date of Service: 11/21/24 Reason For Visit: decompensation Interim History: met with patient; discussed with team; reviewed chart Patient reports that her mood is better and that she is sleeping well; manic symptoms resolved. Discussed medication regimen and patient agrees to restart Cymbalta. Pain overall managed enough Mental Status Exam Mental Status Exam Narrative: Pt is alert and oriented; behavior is cooperative, calm, friendly organized; patient is not in distress; dressed in casual attire with adequate hygiene; mood is described as improved and affect congruent, calm, brighter; eye contact appropriate; Speech normal rate, volume and prosody; no psychomotor agitation/retardation present; thought process is organized and goal directed; Thought content is on tx, mourning; otherwise pertinent to relevant topics and without any delusional content, paranoid ideations or grandiosity; denies any SI/HI. Denies AVH and there is no evidence of perceptual disturbance. Patients insight and judgment fair. Diagnostics Vital Signs (24Hr): Vital Signs - 24 hr 11/20/24 19:36 Temperature 97.8 F Pulse Rate 84 Blood Pressure 93/58 L Pulse Oximetry 95 Oxygen Delivery Method Room Air BMI result Body Mass Index 25.8 Labs 11/17/24 06:34 11/18/24 08:13 Labs: Laboratory Results - last 48 hr 11/20/24 08:03 HIV 1&2 Ab/P24 Ag 4thGn Nonreactive Medications Medications Current Medications Acetaminophen (Acetaminophen 325 Mg Tablet) 650 mg PO Q6H PRN PRN Reason: Headache/Pain, Scale 1-10 Al Hydroxide/Mg Hydroxide (Magnesium Hydrox/Alum Hydrox 30 Ml Oral.Susp) 30 ml PO Q6H PRN PRN Reason: Heartburn/Nausea Aripiprazole (Aripiprazole 2 Mg Tablet) 2 mg PO DAILY [facility] Last Admin: 11/21/24 08:50 Dose: 2 mg Celecoxib (Celecoxib 200 Mg Capsule) 200 mg PO BID [facility] Last Admin: 11/21/24 08:49 Dose: 200 mg Divalproex Sodium (Divalproex Sodium Er 500 Mg Tab.Er.24h) 1,000 mg PO BEDTIME [facility] Last Admin: 11/20/24 20:53 Dose: 1,000 mg Duloxetine HCl (Duloxetine Hcl 30 Mg Capsule.Dr) 30 mg PO BID [facility] Last Admin: 11/17/24 13:06 Dose: 30 mg Hydroxyzine HCl (Hydroxyzine Hcl 25 Mg Tablet) 25 mg PO Q6H PRN PRN Reason: mild anxiety Levetiracetam (Levetiracetam 500 Mg Tablet) 500 mg PO BID [facility] Last Admin: 11/21/24 08:50 Dose: 500 mg Magnesium Hydroxide (Milk Of Magnesia 30 Ml Oral.Susp) 30 ml PO DAILY PRN PRN Reason: Constipation Methadone HCl (Methadone Hcl 20 Mg/2 Ml Oral.Conc) 15 mg PO DAILY [facility] Last Admin: 11/21/24 07:53 Dose: 15 mg Nicotine Polacrilex (Nicotine Polacrilex 2 Mg Gum) 4 mg BUCCAL Q2H PRN PRN Reason: Nicotine Cravings Olanzapine (Olanzapine 5 Mg Tablet) 5 mg PO TID PRN PRN Reason: agitation Last Admin: 11/20/24 15:45 Dose: 5 mg Oxycodone HCl (Oxycodone Hcl Immed Release 5 Mg Tablet) 10 mg PO QID [facility] Last Admin: 11/21/24 08:49 Dose: 10 mg Trazodone HCl (Trazodone Hcl 50 Mg Tablet) 150 mg PO BEDTIME [facility] Last Admin: 11/20/24 20:53 Dose: 150 mg Trazodone HCl (Trazodone Hcl 50 Mg Tablet) 50 mg PO BEDTIME MRX1 PRN PRN Reason: Insomnia Allergies Allergies Allergy/AdvReac Type Severity Reaction Status Date / Time amoxicillin [AMOXICILLIN] Allergy Intermediate RASH Verified 11/16/24 21:29 Penicillins [PENICILLINS] Allergy Intermediate RASH Verified 11/16/24 21:29 topiramate [From Topamax] AdvReac Unknown Unknown Verified 11/16/24 21:29 lamictal AdvReac Unknown Unknown Uncoded 11/16/24 21:29 Assessment & Plan Assessment & Plan (1) Bipolar I disorder: Status: Acute Code(s): F31.9 - Bipolar disorder, unspecified (2) PTSD (post-traumatic stress disorder): Status: Acute Code(s): F43.10 - Post-traumatic stress disorder, unspecified (3) Opioid use disorder, moderate, in early remission, on maintenance therapy, dependence: Status: Acute Code(s): F11.21 - Opioid dependence, in remission (4) Cocaine use disorder: Status: Acute Code(s): F14.10 - Cocaine abuse, uncomplicated (5) Cardiac pacemaker in situ: Status: Acute Code(s): Z95.0 - Presence of cardiac pacemaker (6) Closed left fibular fracture: Qualifiers: Encounter type: initial encounter Fibula location: distal Status: Acute Code(s): S82.402A - Unspecified fracture of shaft of left fibula, initial encounter for closed fracture (7) Fracture of medial malleolus, left, closed: Qualifiers: Encounter type: subsequent encounter Fracture alignment: displaced Fracture healing: with routine healing Qualified Code(s): S82.52XD - Displaced fracture of medial malleolus of left tibia, subsequent encounter for closed fracture with routine healing Status: Acute Code(s): S82.52XA - Displaced fracture of medial malleolus of left tibia, initial encounter for closed fracture (8) Seizure: Status: Acute Code(s): R56.9 - Unspecified convulsions (9) Osteoarthritis of knees, bilateral: Status: Acute Code(s): M17.0 - Bilateral primary osteoarthritis of knee Plan Patient is a 49-year-old female with history of bipolar disorder, PTSD, cocaine and opiate use disorder, seizure disorder, left foot fracture status post surgical repair with plates, osteoarthritis b/l knees pending knee replacement, pacemaker (status post arrhythmia from methadone) who presents for manic episode in the face of relapse and cocaine and going off her medication. Patient reports that she has been sober from opiates for 3 years; during the spring summer and fall she remains stable but when winter comes she struggles with seasonal affect disorder and the approaching anniversary of her 's in September. She says that this time of year is always difficult for her and for the past 2 or 3 months she will remain sober for about 2 weeks and then chart picker [cocaine] for 1 day and repeat this pattern. Patient remains on her medications and lives with her mother and stepfather however supportive. This past week, patient was feeling particularly sad about her loved one, got into an argument with her parents and left the house to use crack cocaine. Although she usually comes back after day this time she called her mother and said she is not coming back but wants her medications; her mother in an effort to get the patient safely home, refused to give her any of her medications including her Keppra, Depakote and scheduled oxycodone which she has been on for several years (mother also called PCP prescriber who did not refill oxycodone). Patient's depression worsened and so did her drug use; due to oxycodone withdrawal and increasing pain, patient used heroin for the 1st time in 3 years which she deeply regrets. Patient became manic, and does know how she ended up naked in the bushes. Patient reports she has been manic for the past week and can tell the difference between manic symptoms and cocaine high; explaining that even now, days after the cocaine use, her mind is still racing and she still can not sleep dot dot dot patient reports having recent seizures as well. She very much wants to get back on her medications. No SI. Formulation/clinical reason: Patient presents as distraught and hypomanic, talking fast and having trouble sleeping. Very much wants to get back on medications which he says are helpful and being restarted. Bed Teacher reviewed [facility] and patient is prescribed oxycodone 10 mg q.i.d. which patient says she has been on for years; patient reports that she was taken off methadone due to an arrhythmia and now has a pacemaker (patient was on methadone 222 mg, developed an arrhythmia, received a pacemaker and was tapered down to current dose of 15 mg). Will restart home medications. Patient says she was recently started on Abilify 2 mg to help prevent manic episodes. 11/21 Patient reports that her mood is better and that she is sleeping well; manic symptoms resolved. Discussed medication regimen and patient agrees to restart Cymbalta. Pain overall managed enough Plan: CV Q 15 minute Continue Keppra Continue Depakote Continue oxycodone 10 mg q.i.d. scheduled (patient is prescribed this as an outpatient for years; not worth risking increase of methadone to deal with pain) Continue methadone 15 mg daily Continue Abilify 2 mg restart duloxetine 30 mg b.i.d. until hakan subsides Continue Celebrex 200 mg b.i.d. -patient asks for STD testing since she has no idea why she was naked Patient gave permission to call family to gather collateral Patient educated on: diagnosis, medication risk/benefits and medical condition Informed Consent: understands Reason for continued inpatient stay Substantial Risk for: rapid decompensation Time Spent With Patient Time: Total time managing care of this patient today ____ minutes.
--- NOTE | 2024-11-21 11:40 | PC.NURSE ---
Pt approached on 2 occasions this morning and refused VS to be obtained.
[2024-11-21 19:32] VITALS: BP 102/55; PULSE 81; TEMP 36.9; O2SAT 96
[2024-11-21] MEDS: Divalproex Sodium ER 500 MG TAB.ER.24H 1000 MG PO (20:11)
[2024-11-21] MEDS: traZODone HCL 50 MG TABLET 150 MG PO (20:11)
[2024-11-22] MEDS: methADONE HCl 20 MG/2 ML ORAL.CONC 15 MG PO (07:47)
[2024-11-22 08:00] VITALS: BP 103/59; PULSE 88; TEMP 36.3; O2SAT 98
[2024-11-22] MEDS: DULoxetine HCl 30 MG CAPSULE.DR PO ×2 (08:32→20:34)
[2024-11-22] MEDS: levETIRAcetam 500 MG TABLET PO ×2 (08:32→20:33)
[2024-11-22] MEDS: oxyCODONE HCl Immed Release 5 MG TABLET 10 MG PO ×4 (08:33→20:34)
[2024-11-22] MEDS: Celecoxib 200 MG CAPSULE PO ×2 (08:33→20:34)
--- NOTE | 2024-11-22 10:01 | HO.PSYCHPN ---
Subjective Subjective Date of Service: 11/22/24 Reason For Visit: decompensation Interim History: met with pt; discussed with team pt reports she feels better; dealing well and coping appropriately with high acuity on the unit. Showed sports writer mildly swollen left ankle that was recently sprained; does not want ibuprofen. Mother visited who remains supportive and welcomes patient back home but wonders if pt will benefit from a program; pt concurs and program options discussed. Mental Status Exam Mental Status Exam Narrative: Pt is alert and oriented; behavior is cooperative, calm, friendly, organized, in good behavioral control; patient is not in distress; dressed in casual attire with adequate hygiene; mood is described as better and affect congruent, calm, brighter; eye contact appropriate; Speech normal rate, volume and prosody; no psychomotor agitation/retardation present; thought process is organized and goal directed; Thought content is on tx,aftercare, mourning; otherwise pertinent to relevant topics and without any delusional content, paranoid ideations or grandiosity; denies any SI/HI. Denies AVH and there is no evidence of perceptual disturbance. Patients insight and judgment fair. Diagnostics Vital Signs (24Hr): Vital Signs - 24 hr 11/21/24 19:32 Temperature 98.4 F Pulse Rate 81 Blood Pressure 102/55 L Pulse Oximetry 96 Oxygen Delivery Method Room Air BMI result Body Mass Index 25.8 Labs 11/17/24 06:34 11/18/24 08:13 Labs: Laboratory Results - last 48 hr 11/20/24 08:03 HIV 1&2 Ab/P24 Ag 4thGn Nonreactive Medications Medications Current Medications Acetaminophen (Acetaminophen 325 Mg Tablet) 650 mg PO Q6H PRN PRN Reason: Headache/Pain, Scale 1-10 Al Hydroxide/Mg Hydroxide (Magnesium Hydrox/Alum Hydrox 30 Ml Oral.Susp) 30 ml PO Q6H PRN PRN Reason: Heartburn/Nausea Aripiprazole (Aripiprazole 2 Mg Tablet) 2 mg PO BEDTIME [facility] Celecoxib (Celecoxib 200 Mg Capsule) 200 mg PO BID [facility] Last Admin: 11/22/24 08:33 Dose: 200 mg Divalproex Sodium (Divalproex Sodium Er 500 Mg Tab.Er.24h) 1,000 mg PO BEDTIME [facility] Last Admin: 11/21/24 20:11 Dose: 1,000 mg Duloxetine HCl (Duloxetine Hcl 30 Mg Capsule.Dr) 30 mg PO BID [facility] Last Admin: 11/17/24 13:06 Dose: 30 mg Duloxetine HCl (Duloxetine Hcl 30 Mg Capsule.Dr) 30 mg PO DAILY [facility] Last Admin: 11/22/24 08:32 Dose: 30 mg Hydroxyzine HCl (Hydroxyzine Hcl 25 Mg Tablet) 25 mg PO Q6H PRN PRN Reason: mild anxiety Levetiracetam (Levetiracetam 500 Mg Tablet) 500 mg PO BID [facility] Last Admin: 11/22/24 08:32 Dose: 500 mg Magnesium Hydroxide (Milk Of Magnesia 30 Ml Oral.Susp) 30 ml PO DAILY PRN PRN Reason: Constipation Methadone HCl (Methadone Hcl 20 Mg/2 Ml Oral.Conc) 15 mg PO DAILY [facility] Last Admin: 11/22/24 07:47 Dose: 15 mg Nicotine Polacrilex (Nicotine Polacrilex 2 Mg Gum) 4 mg BUCCAL Q2H PRN PRN Reason: Nicotine Cravings Olanzapine (Olanzapine 5 Mg Tablet) 5 mg PO TID PRN PRN Reason: agitation Last Admin: 11/20/24 15:45 Dose: 5 mg Oxycodone HCl (Oxycodone Hcl Immed Release 5 Mg Tablet) 10 mg PO QID [facility] Last Admin: 11/22/24 08:33 Dose: 10 mg Trazodone HCl (Trazodone Hcl 50 Mg Tablet) 150 mg PO BEDTIME [facility] Last Admin: 11/21/24 20:11 Dose: 150 mg Trazodone HCl (Trazodone Hcl 50 Mg Tablet) 50 mg PO BEDTIME MRX1 PRN PRN Reason: Insomnia Allergies Allergies Allergy/AdvReac Type Severity Reaction Status Date / Time amoxicillin [AMOXICILLIN] Allergy Intermediate RASH Verified 11/16/24 21:29 Penicillins [PENICILLINS] Allergy Intermediate RASH Verified 11/16/24 21:29 topiramate [From Topamax] AdvReac Unknown Unknown Verified 11/16/24 21:29 lamictal AdvReac Unknown Unknown Uncoded 11/16/24 21:29 Assessment & Plan Assessment & Plan (1) Bipolar I disorder: Status: Acute Code(s): F31.9 - Bipolar disorder, unspecified (2) PTSD (post-traumatic stress disorder): Status: Acute Code(s): F43.10 - Post-traumatic stress disorder, unspecified (3) Opioid use disorder, moderate, in early remission, on maintenance therapy, dependence: Status: Acute Code(s): F11.21 - Opioid dependence, in remission (4) Cocaine use disorder: Status: Acute Code(s): F14.10 - Cocaine abuse, uncomplicated (5) Cardiac pacemaker in situ: Status: Acute Code(s): Z95.0 - Presence of cardiac pacemaker (6) Closed left fibular fracture: Qualifiers: Encounter type: initial encounter Fibula location: distal Status: Acute Code(s): S82.402A - Unspecified fracture of shaft of left fibula, initial encounter for closed fracture (7) Fracture of medial malleolus, left, closed: Qualifiers: Encounter type: subsequent encounter Fracture alignment: displaced Fracture healing: with routine healing Qualified Code(s): S82.52XD - Displaced fracture of medial malleolus of left tibia, subsequent encounter for closed fracture with routine healing Status: Acute Code(s): S82.52XA - Displaced fracture of medial malleolus of left tibia, initial encounter for closed fracture (8) Seizure: Status: Acute Code(s): R56.9 - Unspecified convulsions (9) Osteoarthritis of knees, bilateral: Status: Acute Code(s): M17.0 - Bilateral primary osteoarthritis of knee Plan Patient is a 49-year-old female with history of bipolar disorder, PTSD, cocaine and opiate use disorder, seizure disorder, left foot fracture status post surgical repair with plates, osteoarthritis b/l knees pending knee replacement, pacemaker (status post arrhythmia from methadone) who presents for manic episode in the face of relapse and cocaine and going off her medication. Patient reports that she has been sober from opiates for 3 years; during the spring summer and fall she remains stable but when winter comes she struggles with seasonal affect disorder and the approaching anniversary of her 's in September. She says that this time of year is always difficult for her and for the past 2 or 3 months she will remain sober for about 2 weeks and then diamond picker [cocaine] for 1 day and repeat this pattern. Patient remains on her medications and lives with her mother and stepfather however supportive. This past week, patient was feeling particularly sad about her loved one, got into an argument with her parents and left the house to use crack cocaine. Although she usually comes back after day this time she called her mother and said she is not coming back but wants her medications; her mother in an effort to get the patient safely home, refused to give her any of her medications including her Keppra, Depakote and scheduled oxycodone which she has been on for several years (mother also called PCP prescriber who did not refill oxycodone). Patient's depression worsened and so did her drug use; due to oxycodone withdrawal and increasing pain, patient used heroin for the 1st time in 3 years which she deeply regrets. Patient became manic, and does know how she ended up naked in the bushes. Patient reports she has been manic for the past week and can tell the difference between manic symptoms and cocaine high; explaining that even now, days after the cocaine use, her mind is still racing and she still can not sleep dot dot dot patient reports having recent seizures as well. She very much wants to get back on her medications. No SI. Formulation/clinical reason: Patient presents as distraught and hypomanic, talking fast and having trouble sleeping. Very much wants to get back on medications which he says are helpful and being restarted. Blade Grinder reviewed [facility] and patient is prescribed oxycodone 10 mg q.i.d. which patient says she has been on for years; patient reports that she was taken off methadone due to an arrhythmia and now has a pacemaker (patient was on methadone 222 mg, developed an arrhythmia, received a pacemaker and was tapered down to current dose of 15 mg). Will restart home medications. Patient says she was recently started on Abilify 2 mg to help prevent manic episodes. 11/21 Patient reports that her mood is better and that she is sleeping well; manic symptoms resolved. Discussed medication regimen and patient agrees to restart Cymbalta. Pain overall managed enough 11/22 pt reports she feels better; dealing well and coping appropriately with high acuity on the unit. Showed sports writer mildly swollen left ankle that was recently sprained; does not want ibuprofen. Mother visited who remains supportive and welcomes patient back home but wonders if pt will benefit from a program; pt concurs and program options discussed. Patient is stable on current medication regimen -pt in good behavioral and impulse control, appropriate with peers and staff and engaged in treatment, attending groups and forthcoming in one on one sessions. Plan: CV Q 15 minute Continue Keppra Continue Depakote Continue oxycodone 10 mg q.i.d. scheduled (patient is prescribed this as an outpatient for years; not worth risking increase of methadone to deal with pain) Continue methadone 15 mg daily Continue Abilify 2 mg Continue duloxetine 30 mg b.i.d. Continue Celebrex 200 mg b.i.d. -patient asks for STD testing since she has no idea why she was naked Patient gave permission to call family to gather collateral Patient educated on: diagnosis, medication risk/benefits, substance abuse and medical condition Informed Consent: understands Reason for continued inpatient stay Substantial Risk for: stable for discharge Time Spent With Patient Time: Total time managing care of this patient today ____ minutes.
[2024-11-22] MEDS: ARIPiprazole 2 MG TABLET PO (20:33)
[2024-11-22] MEDS: traZODone HCL 50 MG TABLET 150 MG PO (20:34)
[2024-11-22] MEDS: Divalproex Sodium ER 500 MG TAB.ER.24H 1000 MG PO (20:35)
[2024-11-23] MEDS: methADONE HCl 20 MG/2 ML ORAL.CONC 15 MG PO (07:51)
[2024-11-23 08:00] VITALS: BP 105/57; PULSE 80; RESP 16; TEMP 36.2; O2SAT 97
[2024-11-23] MEDS: Celecoxib 200 MG CAPSULE PO ×2 (08:46→20:31)
[2024-11-23] MEDS: oxyCODONE HCl Immed Release 5 MG TABLET 10 MG PO ×4 (08:46→20:30)
[2024-11-23] MEDS: levETIRAcetam 500 MG TABLET PO ×2 (08:48→20:29)
[2024-11-23] MEDS: DULoxetine HCl 30 MG CAPSULE.DR PO ×2 (08:48→20:29)
--- NOTE | 2024-11-23 09:42 | P.PNPSI_ITS ---
Subjective Subjective Date of Service: 11/23/24 Reason For Visit: decompensation Interim History: met with patient; discussed with team Patient reports that she is overall doing better, mood is better, sleeping well, anxiety under control though remains. Patient agreeing to go to a substance abuse program and working with social work work on dispo. Discussed patient's orthopedic issues including left fibular fracture repair done at [place] about 2 years ago; patient also works with [facility] regarding pending bilateral knee replacement. Patient described that she needs clearance from her neurologist and also estimating engineer Dr. Woody prior to getting knee replacement surgery which seems to be part of the hold up. Patient was informed that she needs to demonstrate continued stability on pacemaker prior to surgery and has a pending appointment in December with estimating engineer. Discussed getting oxycodone from Dr. Lantigua. Patient said that she is willing to sign opioid contract, give random urines etc. Sponsorship Manager spoke with Dr. Lantigua who agrees that patient can continue on current regimen but will need to come under much more strict adherence if he is to continue prescribing start Flexeril 5mg qhs for leg muscle aches Mental Status Exam Mental Status Exam Narrative: Pt is alert and oriented; behavior is cooperative, calm, friendly, organized, in good behavioral control; patient is not in distress; dressed in casual attire with adequate hygiene; mood is described as anxious and affect overall calm, brighter; eye contact appropriate; Speech normal rate, volume and prosody; no psychomotor agitation/retardation present; thought process is organized and goal directed; Thought content is on tx,aftercare, mourning; otherwise pertinent to relevant topics and without any delusional content, paranoid ideations or grandiosity; denies any SI/HI. Denies AVH and there is no evidence of perceptual disturbance. Patients insight and judgment fair. Diagnostics Vital Signs (24Hr): BMI result Body Mass Index 25.8 Labs 11/17/24 06:34 11/18/24 08:13 Medications Medications Current Medications Acetaminophen (Acetaminophen 325 Mg Tablet) 650 mg PO Q6H PRN PRN Reason: Headache/Pain, Scale 1-10 Al Hydroxide/Mg Hydroxide (Magnesium Hydrox/Alum Hydrox 30 Ml Oral.Susp) 30 ml PO Q6H PRN PRN Reason: Heartburn/Nausea Aripiprazole (Aripiprazole 2 Mg Tablet) 2 mg PO BEDTIME [facility] Last Admin: 11/22/24 20:33 Dose: 2 mg Celecoxib (Celecoxib 200 Mg Capsule) 200 mg PO BID [facility] Last Admin: 11/23/24 08:46 Dose: 200 mg Divalproex Sodium (Divalproex Sodium Er 500 Mg Tab.Er.24h) 1,000 mg PO BEDTIME [facility] Last Admin: 11/22/24 20:35 Dose: 1,000 mg Duloxetine HCl (Duloxetine Hcl 30 Mg Capsule.Dr) 30 mg PO BID [facility] Last Admin: 11/23/24 08:48 Dose: 30 mg Hydroxyzine HCl (Hydroxyzine Hcl 25 Mg Tablet) 25 mg PO Q6H PRN PRN Reason: mild anxiety Levetiracetam (Levetiracetam 500 Mg Tablet) 500 mg PO BID [facility] Last Admin: 11/23/24 08:48 Dose: 500 mg Magnesium Hydroxide (Milk Of Magnesia 30 Ml Oral.Susp) 30 ml PO DAILY PRN PRN Reason: Constipation Methadone HCl (Methadone Hcl 20 Mg/2 Ml Oral.Conc) 15 mg PO DAILY [facility] Last Admin: 11/23/24 07:51 Dose: 15 mg Nicotine Polacrilex (Nicotine Polacrilex 2 Mg Gum) 4 mg BUCCAL Q2H PRN PRN Reason: Nicotine Cravings Olanzapine (Olanzapine 5 Mg Tablet) 5 mg PO TID PRN PRN Reason: agitation Last Admin: 11/20/24 15:45 Dose: 5 mg Oxycodone HCl (Oxycodone Hcl Immed Release 5 Mg Tablet) 10 mg PO QID [facility] Last Admin: 11/23/24 08:46 Dose: 10 mg Trazodone HCl (Trazodone Hcl 50 Mg Tablet) 150 mg PO BEDTIME [facility] Last Admin: 11/22/24 20:34 Dose: 150 mg Trazodone HCl (Trazodone Hcl 50 Mg Tablet) 50 mg PO BEDTIME MRX1 PRN PRN Reason: Insomnia Allergies Allergies Allergy/AdvReac Type Severity Reaction Status Date / Time amoxicillin [AMOXICILLIN] Allergy Intermediate RASH Verified 11/16/24 21:29 Penicillins [PENICILLINS] Allergy Intermediate RASH Verified 11/16/24 21:29 topiramate [From Topamax] AdvReac Unknown Unknown Verified 11/16/24 21:29 lamictal AdvReac Unknown Unknown Uncoded 11/16/24 21:29 Assessment & Plan Assessment & Plan (1) Bipolar I disorder: Status: Acute Code(s): F31.9 - Bipolar disorder, unspecified (2) PTSD (post-traumatic stress disorder): Status: Acute Code(s): F43.10 - Post-traumatic stress disorder, unspecified (3) Opioid use disorder, moderate, in early remission, on maintenance therapy, dependence: Status: Acute Code(s): F11.21 - Opioid dependence, in remission (4) Cocaine use disorder: Status: Acute Code(s): F14.10 - Cocaine abuse, uncomplicated (5) Cardiac pacemaker in situ: Status: Acute Code(s): Z95.0 - Presence of cardiac pacemaker (6) Closed left fibular fracture: Qualifiers: Encounter type: initial encounter Fibula location: distal Status: Acute Code(s): S82.402A - Unspecified fracture of shaft of left fibula, initial encounter for closed fracture (7) Fracture of medial malleolus, left, closed: Qualifiers: Encounter type: subsequent encounter Fracture alignment: displaced F racture healing: with routine healing Qualified Code(s): S82.52XD - Displaced fracture of medial malleolus of left tibia, subsequent encounter for closed fracture with routine healing Status: Acute Code(s): S82.52XA - Displaced fracture of medial malleolus of left tibia, initial encounter for closed fracture (8) Seizure: Status: Acute Code(s): R56.9 - Unspecified convulsions (9) Osteoarthritis of knees, bilateral: Status: Acute Code(s): M17.0 - Bilateral primary osteoarthritis of knee Plan Patient is a 49-year-old female with history of bipolar disorder, PTSD, cocaine and opiate use disorder, seizure disorder, left foot fracture status post surgical repair with plates, osteoarthritis b/l knees pending knee replacement, pacemaker (status post arrhythmia from methadone) who presents for manic episode in the face of relapse and cocaine and going off her medication. Patient reports that she has been sober from opiates for 3 years; during the spring summer and fall she remains stable but when winter comes she struggles with seasonal affect disorder and the approaching anniversary of her 's in September. She says that this time of year is always difficult for her and for the past 2 or 3 months she will remain sober for about 2 weeks and then cook pickled meat [cocaine] for 1 day and repeat this pattern. Patient remains on her medications and lives with her mother and stepfather however supportive. This past week, patient was feeling particularly sad about her loved one, got into an argument with her parents and left the house to use crack cocaine. Although she usually comes back after day this time she called her mother and said she is not coming back but wants her medications; her mother in an effort to get the patient safely home, refused to give her any of her medications including her Keppra, Depakote and scheduled oxycodone which she has been on for several years (mother also called PCP prescriber who did not refill oxycodone). Patient's depression worsened and so did her drug use; due to oxycodone withdrawal and increasing pain, patient used heroin for the 1st time in 3 years which she deeply regrets. Patient became manic, and does know how she ended up naked in the bushes. Patient reports she has been manic for the past week and can tell the difference between manic symptoms and cocaine high; explaining that even now, days after the cocaine use, her mind is still racing and she still can not sleep dot dot dot patient reports having recent seizures as well. She very much wants to get back on her medications. No SI. Formulation/clinical reason: Patient presents as distraught and hypomanic, talking fast and having trouble sleeping. Very much wants to get back on medications which he says are helpful and being restarted. Sponsorship Manager reviewed [facility] and patient is prescribed oxycodone 10 mg q.i.d. which patient says she has been on for years; patient reports that she was taken off methadone due to an arrhythmia and now has a pacemaker (patient was on methadone 222 mg, developed an arrhythmia, received a pacemaker and was tapered down to current dose of 15 mg). Will restart home medications. Patient says she was recently started on Abilify 2 mg to help prevent manic episodes. 11/21 Patient reports that her mood is better and that she is sleeping well; manic symptoms resolved. Discussed medication regimen and patient agrees to restart Cymbalta. Pain overall managed enough 11/22 pt reports she feels better; dealing well and coping appropriately with high acuity on the unit. 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 Mother visited who remains supportive and welcomes patient back home but wonders if pt will benefit from a program; pt concurs and program options discussed. 11/23 Patient reports that she is overall doing better, mood is better, sleeping well, anxiety under control though remains. Patient agreeing to go to a substance abuse program and working with social work work on dispo. Discussed patient's orthopedic issues including left fibular fracture repair done at [place] about 2 years ago; patient also works with [facility] regarding pending bilateral knee replacement. Patient described that she needs clearance from her neurologist and also estimating engineer Dr. Woody prior to getting knee replacement surgery which seems to be part of the hold up. Patient was informed that she needs to demonstrate continued stability on pacemaker prior to surgery and has a pending appointment in December with estimating engineer. -Discussed getting oxycodone from Dr. Lantigua. Patient said that she is willing to sign opioid contract, give random urines etc. Sponsorship Manager spoke with Dr. Lantigua who agrees that patient can continue on current regimen but will need to come under much more strict adherence if he is to continue prescribing -start Flexeril 5mg qhs for leg muscle aches Patient is stable on current medication regimen -pt in good behavioral and impulse control, appropriate with peers and staff and engaged in treatment, attending groups and forthcoming in one on one sessions. Plan: CV Q 15 minute Continue Keppra Continue Depakote Continue oxycodone 10 mg q.i.d. scheduled (patient is prescribed this as an outpatient for years; not worth risking increase of methadone to deal with pain) Continue methadone 15 mg daily Continue Abilify 2 mg Continue duloxetine 30 mg b.i.d. Continue Celebrex 200 mg b.i.d. -patient asks for STD testing since she has no idea why she was naked Patient gave permission to call family to gather collateral Patient educated on: diagnosis, medication risk/benefits, substance abuse and medical condition Informed Consent: understands Reason for continued inpatient stay Substantial Risk for: stable for discharge Time Spent With Patient Time: Total time managing care of this patient today ____ minutes.
[2024-11-23 20:00] VITALS: BP 118/61; PULSE 75; TEMP 36.1; O2SAT 98
[2024-11-23] MEDS: Cyclobenzaprine HCl 5 MG TABLET PO (20:29)
[2024-11-23] MEDS: ARIPiprazole 2 MG TABLET PO (20:30)
[2024-11-23] MEDS: Divalproex Sodium ER 500 MG TAB.ER.24H 1000 MG PO (20:30)
[2024-11-23] MEDS: traZODone HCL 50 MG TABLET 150 MG PO (20:30)
[2024-11-24] MEDS: methADONE HCl 20 MG/2 ML ORAL.CONC 15 MG PO (07:40)
[2024-11-24] MEDS: oxyCODONE HCl Immed Release 5 MG TABLET 10 MG PO ×4 (07:40→20:53)
[2024-11-24 08:00] VITALS: BP 98/56; PULSE 92; TEMP 36.6; O2SAT 99
[2024-11-24] MEDS: DULoxetine HCl 30 MG CAPSULE.DR PO ×2 (08:11→20:54)
[2024-11-24] MEDS: levETIRAcetam 500 MG TABLET PO ×2 (08:11→20:53)
[2024-11-24] MEDS: Celecoxib 200 MG CAPSULE PO ×2 (08:11→20:53)
[2024-11-24] MEDS: Ondansetron ODT 4 MG TAB.RAPDIS TRANSLINGU (08:24)
--- NOTE | 2024-11-24 11:37 | P.CONHOSP_ITS ---
History of Present Illness Data of Consult Service Date: 11/24/24 Requesting physician: Eran Putnam Primary Care Provider: Unknown Physician HPI Reason for consult: Self-reported seizure activity 49-year-old female with PMH of bipolar disorder, PTSD, cocaine and opiate use disorder, seizure disorder, left foot fracture status post surgical repair with plates, Osteoarthritis b/l knees pending knee replacement, pacemaker (status post arrhythmia from methadone) who is receiving treatment on M 5. She is seen today because she is self reporting seizure activity. She reports that she became lightheaded dizzy and had a hot flash which usually indicates an aura prior to seizure activity. She felt this way back up towards her bed and when she came to her both cereal that she was eating was all over. She does not remember any details of how long this incident occurred. It was unwitnessed by staff. Now she reports feeling a little dizzy and disoriented, but overall feeling better. She reports that she is seen regularly by Dr. Mann from Neurology. She reports that it has been several months since she has had a seizure. On exam she appears at her baseline, ambulating with a steady gait denies any headache, dizziness, lightheadedness, diplopia or any other concerning symptoms. She is alert and in no apparent distress. Last valproic acid noted to be 18.1 on 11/17/2024 Review of Systems 2 Review of Systems: Denies any shortness of breath, chest pain, dizziness, lightheadedness, abdominal pain or discomfort, nausea vomiting or diarrhea [facility] Medical History (Updated 11/24/24 @ 12:36 by Vilma Villalpando DNP) Osteoarthritis of knees, bilateral Bipolar I disorder Headache, migraine Cocaine use disorder Opioid use disorder, moderate, in early remission, on maintenance therapy, dependence Bipolar disorder with depression PTSD (post-traumatic stress disorder) Cardiac pacemaker in situ Opioid use disorder Seizure disorder Clavicle fracture Narcotic abuse Seizures Asthma COPD (chronic obstructive pulmonary disease) Surgical History History of ankle surgery (08/05/23) H/O right knee surgery H/O left knee surgery Social History Household Members: Family Household Members Other:: Mother, father, daughter Housing: House Do you presently have visiting nurse or other home services: No Alcohol intake: never Comment: n/a Patient Tobacco Use Status: Current everyday Tobacco user Tobacco use type: Cigarette Cigarettes Per Day: 6 Smoked in Last 30 Days: Yes e-Cigarette/Vaping Use: Currently Using Frequency of e-Cigarette/Vaping Use: daily Patient Interested in Nicotine Replacement: Yes Patient Given Instructions on How to Stop Smoking: No Second Hand Smoke Exposure: No Use of substances other than those prescribed or required for medical reasons: Yes Substance Use Type: Crack/Cocaine Substance Use Frequency: Occasionally Last Used Substance: Just Prior to Admission Currently Displaying Signs/Symptoms of Drug Intoxication Withdrawal: No Any prior treatment program specific to substance use: Yes ([facility]) Have you been hit, kicked, punched, or otherwise hurt by someone within the past year? If so, by whom?: No Do you feel safe in your current relationship?: No Current Relationship Is there a partner from a previous relationship who is making you feel unsafe now?: No Are you made to feel afraid or neglected: No Spiritual Healthcare Practices: None Restorationist Healthcare Practices: None Cultural Healthcare Practices: None Advance Directives: Yes Advance Directives Information Provided: No Advance Directives on File: Yes Advance Directives Date on File: 09/29/23 Do you have thoughts of harming others: None Do you have a plan to hurt others: No Plan Recently lost weight without trying: Unsure How much weight loss: Unsure Eating poorly because of decreased appetite: No Nutrition screen score: 4 Nutrition Risks: No Nutritional Risk Patient : No : No Poor oral hygiene: No service: No Sexual orientation: Straight/Heterosexual Meds Allergies Allergy/AdvReac Type Severity Reaction Status Date / Time amoxicillin [AMOXICILLIN] Allergy Intermediate RASH Verified 11/16/24 21:29 Penicillins [PENICILLINS] Allergy Intermediate RASH Verified 11/16/24 21:29 topiramate [From Topamax] AdvReac Unknown Unknown Verified 11/16/24 21:29 lamictal AdvReac Unknown Unknown Uncoded 11/16/24 21:29 Active Medications: Current Medications Acetaminophen (Acetaminophen 325 Mg Tablet) 650 mg PO Q6H PRN PRN Reason: Headache/Pain, Scale 1-10 Al Hydroxide/Mg Hydroxide (Magnesium Hydrox/Alum Hydrox 30 Ml Oral.Susp) 30 ml PO Q6H PRN PRN Reason: Heartburn/Nausea Aripiprazole (Aripiprazole 2 Mg Tablet) 2 mg PO BEDTIME [facility] Last Admin: 11/23/24 20:30 Dose: 2 mg Celecoxib (Celecoxib 200 Mg Capsule) 200 mg PO BID [facility] Last Admin: 11/24/24 08:11 Dose: 200 mg Cyclobenzaprine HCl (Cyclobenzaprine Hcl 5 Mg Tablet) 5 mg PO BEDTIME [facility] Last Admin: 11/23/24 20:29 Dose: 5 mg Divalproex Sodium (Divalproex Sodium Er 500 Mg Tab.Er.24h) 1,000 mg PO BEDTIME [facility] Last Admin: 11/23/24 20:30 Dose: 1,000 mg Duloxetine HCl (Duloxetine Hcl 30 Mg Capsule.Dr) 30 mg PO BID [facility] Last Admin: 11/24/24 08:11 Dose: 30 mg Hydroxyzine HCl (Hydroxyzine Hcl 25 Mg Tablet) 25 mg PO Q6H PRN PRN Reason: mild anxiety Levetiracetam (Levetiracetam 500 Mg Tablet) 500 mg PO BID [facility] Last Admin: 11/24/24 08:11 Dose: 500 mg Magnesium Hydroxide (Milk Of Magnesia 30 Ml Oral.Susp) 30 ml PO DAILY PRN PRN Reason: Constipation Methadone HCl (Methadone Hcl 20 Mg/2 Ml Oral.Conc) 15 mg PO DAILY [facility] Last Admin: 11/24/24 07:40 Dose: 15 mg Nicotine Polacrilex (Nicotine Polacrilex 2 Mg Gum) 4 mg BUCCAL Q2H PRN PRN Reason: Nicotine Cravings Olanzapine (Olanzapine 5 Mg Tablet) 5 mg PO TID PRN PRN Reason: agitation Last Admin: 11/20/24 15:45 Dose: 5 mg Ondansetron HCl (Ondansetron Odt 4 Mg Tab.Rapdis) 4 mg TRANSLINGU Q6H PRN PRN Reason: Nausea Last Admin: 11/24/24 08:24 Dose: 4 mg Oxycodone HCl (Oxycodone Hcl Immed Release 5 Mg Tablet) 10 mg PO QID [facility] Last Admin: 11/24/24 07:40 Dose: 10 mg Trazodone HCl (Trazodone Hcl 50 Mg Tablet) 150 mg PO BEDTIME [facility] Last Admin: 11/23/24 20:30 Dose: 150 mg Trazodone HCl (Trazodone Hcl 50 Mg Tablet) 50 mg PO BEDTIME MRX1 PRN PRN Reason: Insomnia Home Medications ?Medication ?Instructions ?Recorded ?Confirmed ?Last Taken ?Type celecoxib 200 mg capsule 200 mg PO BID 11/17/24 11/17/24 Unknown History divalproex 500 mg tablet,extended 1,000 mg PO BEDTIME 11/17/24 11/17/24 Unknown History release 24 hr duloxetine 30 mg capsule,delayed 30 mg PO BID 11/17/24 11/17/24 Unknown History release methadone 10 mg/mL oral concentrate 5 mg PO BEDTIME 11/17/24 11/17/24 11/16/24 History methadone 10 mg/mL oral concentrate 15 mg PO DAILY 11/17/24 11/17/24 11/16/24 History trazodone 150 mg tablet 150 mg PO BEDTIME 11/17/24 11/17/24 Unknown History Physical Exam 2 Vital Signs and Narrative: Vital Signs: Last Vital Signs Temp 96.9 F 11/23/24 20:00 Pulse 75 11/23/24 20:00 Resp 16 11/23/24 08:00 BP 118/61 11/23/24 20:00 Pulse Ox 98 11/23/24 20:00 O2 Del Method Room Air 11/23/24 20:00 BMI result Body Mass Index 25.8 Alert and oriented X3, able to give good history. Neuro: CN II-X11 intact, no deficits, visual acuity intact EYES: PERRLA, EOM intact ENT: hearing intact, lips moist Cardiac: S1 S2 RRR Pulmonary: lungs clear to auscultation, No increased WOB. MSK: Strength 5/5 upper and lower extremities. : no CVA tenderness no bladder distension Extremities: Trace edema and tenderness to left ankle. SP ORIF Psych: mood stable, judgment and insight good. Cooperative with exam. Skin: Warm and dry, Intact Results Labs 11/17/24 06:34 11/18/24 08:13 Assessment and Plan (1) Complex partial seizure disorder: Status: Acute Plan Complex partial seizure disorder Recommend checking Keppra level as well as Depakote level. Followed by Dr. Mann as an outpatient. Continue to monitor for any seizure activity and notify hospitalist if this occurs
--- NOTE | 2024-11-24 11:40 | MHC.EVENTN ---
Pt stated to staff that she had an unwitnessed petit mal seizure around 11:10, hospitalist PASTOR Esparza was on the floor and assessed pt as well as ordered labs and tests. Pt was enouraged to rest in bed and is currently in bed coloring.
[2024-11-24 11:48] VITALS: BMI 23.5
--- NOTE | 2024-11-24 18:19 | P.PNPSI_ITS ---
Subjective Subjective Date of Service: 11/24/24 Reason For Visit: decompensation Interim History: Met with patient; discussed with team discussed pain meds, her pcp, knee replacement; discussed aftercare and pt agrees she will benefit from program. remains stable, good mood, optimistic Mental Status Exam Mental Status Exam Narrative: Pt is alert and oriented; behavior is cooperative, calm, friendly, organized, in good behavioral control; patient is not in distress; dressed in casual attire with adequate hygiene; mood is described as good and affect overall calm, brighter; eye contact appropriate; Speech normal rate, volume and prosody; no psychomotor agitation/retardation present; thought process is organized and goal directed; Thought content is on tx,aftercare, mourning; otherwise pertinent to relevant topics and without any delusional content, paranoid ideations or grandiosity; denies any SI/HI. Denies AVH and there is no evidence of perceptual disturbance. Patients insight and judgment fair. Diagnostics Vital Signs (24Hr): Vital Signs - 24 hr 11/23/24 20:00 11/24/24 08:00 Temperature 96.9 F 97.8 F Pulse Rate 75 92 Blood Pressure 118/61 98/56 L Pulse Oximetry 98 99 Oxygen Delivery Method Room Air Room Air BMI result Body Mass Index 23.5 Labs 11/17/24 06:34 11/18/24 08:13 Labs: Laboratory Results - last 48 hr 11/24/24 13:45 Valproic Acid 38.0 L Medications Medications Current Medications Acetaminophen (Acetaminophen 325 Mg Tablet) 650 mg PO Q6H PRN PRN Reason: Headache/Pain, Scale 1-10 Al Hydroxide/Mg Hydroxide (Magnesium Hydrox/Alum Hydrox 30 Ml Oral.Susp) 30 ml PO Q6H PRN PRN Reason: Heartburn/Nausea Aripiprazole (Aripiprazole 2 Mg Tablet) 2 mg PO BEDTIME [facility] Last Admin: 11/23/24 20:30 Dose: 2 mg Celecoxib (Celecoxib 200 Mg Capsule) 200 mg PO BID [facility] Last Admin: 11/24/24 08:11 Dose: 200 mg Cyclobenzaprine HCl (Cyclobenzaprine Hcl 5 Mg Tablet) 5 mg PO BEDTIME [facility] Last Admin: 11/23/24 20:29 Dose: 5 mg Divalproex Sodium (Divalproex Sodium Er 500 Mg Tab.Er.24h) 1,000 mg PO BEDTIME [facility] Last Admin: 11/23/24 20:30 Dose: 1,000 mg Duloxetine HCl (Duloxetine Hcl 30 Mg Capsule.Dr) 30 mg PO BID [facility] Last Admin: 11/24/24 08:11 Dose: 30 mg Hydroxyzine HCl (Hydroxyzine Hcl 25 Mg Tablet) 25 mg PO Q6H PRN PRN Reason: mild anxiety Levetiracetam (Levetiracetam 500 Mg Tablet) 500 mg PO BID [facility] Last Admin: 11/24/24 08:11 Dose: 500 mg Magnesium Hydroxide (Milk Of Magnesia 30 Ml Oral.Susp) 30 ml PO DAILY PRN PRN Reason: Constipation Methadone HCl (Methadone Hcl 20 Mg/2 Ml Oral.Conc) 15 mg PO DAILY [facility] Last Admin: 11/24/24 07:40 Dose: 15 mg Nicotine Polacrilex (Nicotine Polacrilex 2 Mg Gum) 4 mg BUCCAL Q2H PRN PRN Reason: Nicotine Cravings Olanzapine (Olanzapine 5 Mg Tablet) 5 mg PO TID PRN PRN Reason: agitation Last Admin: 11/20/24 15:45 Dose: 5 mg Ondansetron HCl (Ondansetron Odt 4 Mg Tab.Rapdis) 4 mg TRANSLINGU Q6H PRN PRN Reason: Nausea Last Admin: 11/24/24 08:24 Dose: 4 mg Oxycodone HCl (Oxycodone Hcl Immed Release 5 Mg Tablet) 10 mg PO QID [facility] Last Admin: 11/24/24 16:16 Dose: 10 mg Trazodone HCl (Trazodone Hcl 50 Mg Tablet) 150 mg PO BEDTIME [facility] Last Admin: 11/23/24 20:30 Dose: 150 mg Trazodone HCl (Trazodone Hcl 50 Mg Tablet) 50 mg PO BEDTIME MRX1 PRN PRN Reason: Insomnia Allergies Allergies Allergy/AdvReac Type Severity Reaction Status Date / Time amoxicillin [AMOXICILLIN] Allergy Intermediate RASH Verified 11/16/24 21:29 Penicillins [PENICILLINS] Allergy Intermediate RASH Verified 11/16/24 21:29 topiramate [From Topamax] AdvReac Unknown Unknown Verified 11/16/24 21:29 lamictal AdvReac Unknown Unknown Uncoded 11/16/24 21:29 Assessment & Plan Assessment & Plan (1) PTSD (post-traumatic stress disorder): Status: Acute Code(s): F43.10 - Post-traumatic stress disorder, unspecified (2) Bipolar disorder with depression: Status: Acute Code(s): F31.9 - Bipolar disorder, unspecified (3) Cocaine use disorder: Status: Acute Code(s): F14.10 - Cocaine abuse, uncomplicated (4) Opioid use disorder, moderate, in early remission, on maintenance therapy, dependence: Status: Acute Code(s): F11.21 - Opioid dependence, in remission (5) Complex partial seizure disorder: Status: Acute Code(s): G40.209 - Localization-related (focal) (partial) symptomatic epilepsy and epileptic syndromes with complex partial seizures, not intractable, without status epilepticus Assessment and Plan: 11/24 discussed pain meds, her pcp, knee replacement; discussed aftercare and pt agrees she will benefit from program. remains stable, good mood, optimistic Plan Complex partial seizure disorder Recommend checking Keppra level as well as Depakote level. Followed by Dr. Mann as an outpatient. Continue to monitor for any seizure activity and notify hospitalist if this occurs Patient educated on: diagnosis, medication risk/benefits, substance abuse, therapeutic strategies and medical condition Informed Consent: understands Reason for continued inpatient stay Substantial Risk for: stable for discharge Time Spent With Patient Time: Total time managing care of this patient today ____ minutes.
[2024-11-24 20:00] VITALS: BP 99/53; PULSE 69; TEMP 36.7; O2SAT 96
[2024-11-24] MEDS: Cyclobenzaprine HCl 5 MG TABLET PO (20:53)
[2024-11-24] MEDS: traZODone HCL 50 MG TABLET 150 MG PO (20:54)
[2024-11-24] MEDS: Divalproex Sodium ER 500 MG TAB.ER.24H 1000 MG PO (20:54)
[2024-11-24] MEDS: ARIPiprazole 2 MG TABLET PO (20:54)
[2024-11-25] MEDS: methADONE HCl 20 MG/2 ML ORAL.CONC 15 MG PO (07:39)
[2024-11-25] MEDS: oxyCODONE HCl Immed Release 5 MG TABLET 10 MG PO ×4 (08:45→21:24)
[2024-11-25] MEDS: Ondansetron ODT 4 MG TAB.RAPDIS TRANSLINGU (08:45)
[2024-11-25] MEDS: DULoxetine HCl 30 MG CAPSULE.DR PO ×2 (08:46→21:24)
[2024-11-25] MEDS: levETIRAcetam 500 MG TABLET PO ×2 (08:46→21:24)
[2024-11-25] MEDS: Celecoxib 200 MG CAPSULE PO ×2 (08:46→21:25)
--- NOTE | 2024-11-25 09:47 | HO.PSYCHPN ---
Subjective Subjective Date of Service: 11/25/24 Reason For Visit: decompensation Interim History: met with pt; discussed with team pt remains in good mood; discussed seizure recs, aftercare Mental Status Exam Mental Status Exam Narrative: Pt is alert and oriented; behavior is cooperative, calm, friendly, organized, in good behavioral control; patient is not in distress; dressed in casual attire with adequate hygiene; mood is described as good and affect overall calm, brighter; eye contact appropriate; Speech normal rate, volume and prosody; no psychomotor agitation/retardation present; thought process is organized and goal directed; Thought content is on tx,aftercare, mourning; otherwise pertinent to relevant topics and without any delusional content, paranoid ideations or grandiosity; denies any SI/HI. Denies AVH and there is no evidence of perceptual disturbance. Patients insight and judgment fair. Diagnostics Vital Signs (24Hr): Vital Signs - 24 hr 11/24/24 20:00 Temperature 98.1 F Pulse Rate 69 Blood Pressure 99/53 L Pulse Oximetry 96 Oxygen Delivery Method Room Air BMI result Body Mass Index 23.5 Labs 11/17/24 06:34 11/18/24 08:13 Labs: Laboratory Results - last 48 hr 11/24/24 13:45 Valproic Acid 38.0 L Medications Medications Current Medications Acetaminophen (Acetaminophen 325 Mg Tablet) 650 mg PO Q6H PRN PRN Reason: Headache/Pain, Scale 1-10 Al Hydroxide/Mg Hydroxide (Magnesium Hydrox/Alum Hydrox 30 Ml Oral.Susp) 30 ml PO Q6H PRN PRN Reason: Heartburn/Nausea Aripiprazole (Aripiprazole 2 Mg Tablet) 2 mg PO BEDTIME [facility] Last Admin: 11/24/24 20:54 Dose: 2 mg Celecoxib (Celecoxib 200 Mg Capsule) 200 mg PO BID [facility] Last Admin: 11/25/24 08:46 Dose: 200 mg Cyclobenzaprine HCl (Cyclobenzaprine Hcl 5 Mg Tablet) 5 mg PO BEDTIME [facility] Last Admin: 11/24/24 20:53 Dose: 5 mg Divalproex Sodium (Divalproex Sodium Er 500 Mg Tab.Er.24h) 1,000 mg PO BEDTIME [facility] Last Admin: 11/24/24 20:54 Dose: 1,000 mg Duloxetine HCl (Duloxetine Hcl 30 Mg Capsule.Dr) 30 mg PO BID [facility] Last Admin: 11/25/24 08:46 Dose: 30 mg Hydroxyzine HCl (Hydroxyzine Hcl 25 Mg Tablet) 25 mg PO Q6H PRN PRN Reason: mild anxiety Levetiracetam (Levetiracetam 500 Mg Tablet) 500 mg PO BID [facility] Last Admin: 11/25/24 08:46 Dose: 500 mg Magnesium Hydroxide (Milk Of Magnesia 30 Ml Oral.Susp) 30 ml PO DAILY PRN PRN Reason: Constipation Methadone HCl (Methadone Hcl 20 Mg/2 Ml Oral.Conc) 15 mg PO DAILY [facility] Last Admin: 11/25/24 07:39 Dose: 15 mg Nicotine Polacrilex (Nicotine Polacrilex 2 Mg Gum) 4 mg BUCCAL Q2H PRN PRN Reason: Nicotine Cravings Olanzapine (Olanzapine 5 Mg Tablet) 5 mg PO TID PRN PRN Reason: agitation Last Admin: 11/20/24 15:45 Dose: 5 mg Ondansetron HCl (Ondansetron Odt 4 Mg Tab.Rapdis) 4 mg TRANSLINGU Q6H PRN PRN Reason: Nausea Last Admin: 11/25/24 08:45 Dose: 4 mg Oxycodone HCl (Oxycodone Hcl Immed Release 5 Mg Tablet) 10 mg PO QID [facility] Last Admin: 11/25/24 08:45 Dose: 10 mg Trazodone HCl (Trazodone Hcl 50 Mg Tablet) 150 mg PO BEDTIME [facility] Last Admin: 11/24/24 20:54 Dose: 150 mg Trazodone HCl (Trazodone Hcl 50 Mg Tablet) 50 mg PO BEDTIME MRX1 PRN PRN Reason: Insomnia Allergies Allergies Allergy/AdvReac Type Severity Reaction Status Date / Time amoxicillin [AMOXICILLIN] Allergy Intermediate RASH Verified 11/16/24 21:29 Penicillins [PENICILLINS] Allergy Intermediate RASH Verified 11/16/24 21:29 topiramate [From Topamax] AdvReac Unknown Unknown Verified 11/16/24 21:29 lamictal AdvReac Unknown Unknown Uncoded 11/16/24 21:29 Assessment & Plan Assessment & Plan (1) Complex partial seizure disorder: Status: Acute Code(s): G40.209 - Localization-related (focal) (partial) symptomatic epilepsy and epileptic syndromes with complex partial seizures, not intractable, without status epilepticus Assessment and Plan: 11/24 discussed pain meds, her pcp, knee replacement; discussed aftercare and pt agrees she will benefit from program. remains stable, good mood, optimistic 11/25 Neuro assessed and increased seizure meds remains stable, good behavioral control; engaged in tx; stable on current med regimen (2) PTSD (post-traumatic stress disorder): Status: Acute Code(s): F43.10 - Post-traumatic stress disorder, unspecified (3) Bipolar disorder with depression: Status: Acute Code(s): F31.9 - Bipolar disorder, unspecified (4) Opioid use disorder, moderate, in early remission, on maintenance therapy, dependence: Status: Acute Code(s): F11.21 - Opioid dependence, in remission (5) Cocaine use disorder: Status: Acute Code(s): F14.10 - Cocaine abuse, uncomplicated Plan Complex partial seizure disorder Recommend checking Keppra level as well as Depakote level. Followed by Dr. Mann as an outpatient. Continue to monitor for any seizure activity and notify hospitalist if this occurs Patient educated on: diagnosis, medication risk/benefits, substance abuse and medical condition Informed Consent: understands Reason for continued inpatient stay Substantial Risk for: stable for discharge Time Spent With Patient Time: Total time managing care of this patient today ____ minutes.
--- NOTE | 2024-11-25 13:19 | PM.NEUROCN ---
History of Present Illness Data of Consult Service Date: 11/25/24 Primary Care Provider: Unknown Physician HPI Reason for consult: Self reported partial Sz. Followed by Dr. Mann This is a 48-year-old female, with a history of complex partial seizure disorder followed by Dr. Mann, , asthma, opiate and cocaine use disorder, bipolar disorder, and recent left ankle surgery presenting to the emergency department, via EMS, with complaints of not feeling well. Per EMS, family is concerned due to increased disorientation, confusion. This is her 3rd admission in 7 weeks. She has a history of polysubstance abuse however family reports that there are cameras and all opiates or locked up, and she has not had any recent visitors, however family concern for possible ingestion of opiates. Pt denies any ongoing substance use, last use 3 years ago (cocaine). Reports she continues experiencing petit mal seizures at least twice weekly (follows with Dr. Mann) with reported post ictal states where she is lethargic and disoriented. She states she had a seizure 2 months ago resulting in a fall and sustained multiple fractures LLE s/p ORIF. Has been experiencing signficant difficulty sleeping due to the pain. Reports vaping marijuana, but no other substance use including cigarettes or alcohol. Per ED provider, patient was lethargic/somnolent with pinpoint pupils. Similar to prior presentations. She is on Methadone maintenance but also has prescriptions for Oxycodone 5mg. Sz meds at re Depakote 1000 a day and Keppra 500mg bid. She is now alert and oriented. [facility] Past Medical History Medical History (Updated 11/24/24 @ 12:36 by Vilma Villalpando DNP) Osteoarthritis of knees, bilateral Bipolar I disorder Headache, migraine Cocaine use disorder Opioid use disorder, moderate, in early remission, on maintenance therapy, dependence Bipolar disorder with depression PTSD (post-traumatic stress disorder) Cardiac pacemaker in situ Opioid use disorder Seizure disorder Clavicle fracture Narcotic abuse Seizures Asthma COPD (chronic obstructive pulmonary disease) Surgical History Surgical History History of ankle surgery (08/05/23) H/O right knee surgery H/O left knee surgery Social History Social History Household Members: Family Household Members Other:: Mother, father, daughter Housing: House Do you presently have visiting nurse or other home services: No Alcohol intake: never Comment: n/a Patient Tobacco Use Status: Current everyday Tobacco user Tobacco use type: Cigarette Cigarettes Per Day: 6 Smoked in Last 30 Days: Yes e-Cigarette/Vaping Use: Currently Using Frequency of e-Cigarette/Vaping Use: daily Patient Interested in Nicotine Replacement: Yes Patient Given Instructions on How to Stop Smoking: No Second Hand Smoke Exposure: No Use of substances other than those prescribed or required for medical reasons: Yes Substance Use Type: Crack/Cocaine Substance Use Frequency: Occasionally Last Used Substance: Just Prior to Admission Currently Displaying Signs/Symptoms of Drug Intoxication Withdrawal: No Any prior treatment program specific to substance use: Yes ([facility]) Have you been hit, kicked, punched, or otherwise hurt by someone within the past year? If so, by whom?: No Do you feel safe in your current relationship?: No Current Relationship Is there a partner from a previous relationship who is making you feel unsafe now?: No Are you made to feel afraid or neglected: No Spiritual Healthcare Practices: None Sikh Healthcare Practices: None Cultural Healthcare Practices: None Advance Directives: Yes Advance Directives Information Provided: No Advance Directives on File: Yes Advance Directives Date on File: 09/29/23 Do you have thoughts of harming others: None Do you have a plan to hurt others: No Plan Recently lost weight without trying: Unsure How much weight loss: Unsure Eating poorly because of decreased appetite: No Nutrition screen score: 4 Nutrition Risks: No Nutritional Risk Patient : No : No Poor oral hygiene: No service: No Sexual orientation: Straight/Heterosexual Meds Allergies Allergy/AdvReac Type Severity Reaction Status Date / Time amoxicillin [AMOXICILLIN] Allergy Intermediate RASH Verified 11/16/24 21:29 Penicillins [PENICILLINS] Allergy Intermediate RASH Verified 11/16/24 21:29 topiramate [From Topamax] AdvReac Unknown Unknown Verified 11/16/24 21:29 lamictal AdvReac Unknown Unknown Uncoded 11/16/24 21:29 Active Medications: Current Medications Acetaminophen (Acetaminophen 325 Mg Tablet) 650 mg PO Q6H PRN PRN Reason: Headache/Pain, Scale 1-10 Al Hydroxide/Mg Hydroxide (Magnesium Hydrox/Alum Hydrox 30 Ml Oral.Susp) 30 ml PO Q6H PRN PRN Reason: Heartburn/Nausea Aripiprazole (Aripiprazole 2 Mg Tablet) 2 mg PO BEDTIME [facility] Last Admin: 11/24/24 20:54 Dose: 2 mg Celecoxib (Celecoxib 200 Mg Capsule) 200 mg PO BID [facility] Last Admin: 11/25/24 08:46 Dose: 200 mg Cyclobenzaprine HCl (Cyclobenzaprine Hcl 5 Mg Tablet) 5 mg PO BEDTIME [facility] Last Admin: 11/24/24 20:53 Dose: 5 mg Divalproex Sodium (Divalproex Sodium Er 500 Mg Tab.Er.24h) 1,000 mg PO BEDTIME [facility] Last Admin: 11/24/24 20:54 Dose: 1,000 mg Duloxetine HCl (Duloxetine Hcl 30 Mg Capsule.Dr) 30 mg PO BID [facility] Last Admin: 11/25/24 08:46 Dose: 30 mg Hydroxyzine HCl (Hydroxyzine Hcl 25 Mg Tablet) 25 mg PO Q6H PRN PRN Reason: mild anxiety Levetiracetam (Levetiracetam 500 Mg Tablet) 500 mg PO BID [facility] Last Admin: 11/25/24 08:46 Dose: 500 mg Magnesium Hydroxide (Milk Of Magnesia 30 Ml Oral.Susp) 30 ml PO DAILY PRN PRN Reason: Constipation Methadone HCl (Methadone Hcl 20 Mg/2 Ml Oral.Conc) 15 mg PO DAILY [facility] Last Admin: 11/25/24 07:39 Dose: 15 mg Nicotine Polacrilex (Nicotine Polacrilex 2 Mg Gum) 4 mg BUCCAL Q2H PRN PRN Reason: Nicotine Cravings Olanzapine (Olanzapine 5 Mg Tablet) 5 mg PO TID PRN PRN Reason: agitation Last Admin: 11/20/24 15:45 Dose: 5 mg Ondansetron HCl (Ondansetron Odt 4 Mg Tab.Rapdis) 4 mg TRANSLINGU Q6H PRN PRN Reason: Nausea Last Admin: 11/25/24 08:45 Dose: 4 mg Oxycodone HCl (Oxycodone Hcl Immed Release 5 Mg Tablet) 10 mg PO QID [facility] Last Admin: 11/25/24 12:06 Dose: 10 mg Trazodone HCl (Trazodone Hcl 50 Mg Tablet) 150 mg PO BEDTIME [facility] Last Admin: 11/24/24 20:54 Dose: 150 mg Trazodone HCl (Trazodone Hcl 50 Mg Tablet) 50 mg PO BEDTIME MRX1 PRN PRN Reason: Insomnia Home Medications ?Medication ?Instructions ?Recorded ?Confirmed ?Last Taken ?Type celecoxib 200 mg capsule 200 mg PO BID 11/17/24 11/17/24 Unknown History divalproex 500 mg tablet,extended 1,000 mg PO BEDTIME 11/17/24 11/17/24 Unknown History release 24 hr duloxetine 30 mg capsule,delayed 30 mg PO BID 11/17/24 11/17/24 Unknown History release methadone 10 mg/mL oral concentrate 5 mg PO BEDTIME 11/17/24 11/17/24 11/16/24 History methadone 10 mg/mL oral concentrate 15 mg PO DAILY 11/17/24 11/17/24 11/16/24 History trazodone 150 mg tablet 150 mg PO BEDTIME 11/17/24 11/17/24 Unknown History Physical Exam Vital Signs: Vital Signs: Last Vital Signs Temp 98.1 F 11/24/24 20:00 Pulse 69 11/24/24 20:00 Resp 16 11/23/24 08:00 BP 99/53 L 11/24/24 20:00 Pulse Ox 96 11/24/24 20:00 O2 Del Method Room Air 11/24/24 20:00 BMI result Body Mass Index 23.5 Neuro: Other: normal exam Results Labs 11/17/24 06:34 11/18/24 08:13 Assessment and Plan (1) Complex partial seizure disorder: Status: Acute Add Depakote 500mg in am. Change Keppra to 750mg bid. F/u Dr. Mann. OP 48 hr ambulatory EEG Procedures Date of Service Date of Service: 11/25/24
[2024-11-25 20:22] VITALS: BP 122/68; PULSE 102; TEMP 36.7; O2SAT 97
[2024-11-25] MEDS: Divalproex Sodium ER 500 MG TAB.ER.24H 1000 MG PO (21:24)
[2024-11-25] MEDS: Cyclobenzaprine HCl 5 MG TABLET PO (21:24)
[2024-11-25] MEDS: traZODone HCL 50 MG TABLET 150 MG PO (21:25)
[2024-11-25] MEDS: ARIPiprazole 2 MG TABLET PO (21:25)
[2024-11-26] MEDS: methADONE HCl 20 MG/2 ML ORAL.CONC 15 MG PO (08:11)
[2024-11-26] MEDS: Celecoxib 200 MG CAPSULE PO ×2 (08:13→20:10)
[2024-11-26] MEDS: levETIRAcetam 500 MG TABLET PO ×2 (08:13→20:11)
[2024-11-26] MEDS: DULoxetine HCl 30 MG CAPSULE.DR PO ×2 (08:13→20:09)
[2024-11-26] MEDS: oxyCODONE HCl Immed Release 5 MG TABLET 10 MG PO ×4 (08:13→20:10)
[2024-11-26 09:43] VITALS: BP 94/59; PULSE 82; RESP 16; TEMP 36.6; O2SAT 98
--- NOTE | 2024-11-26 10:13 | HO.PSYCHPN ---
Subjective Subjective Date of Service: 11/26/24 Reason For Visit: decompensation Interim History: met with patient; discussed with team Patient feels she is doing well, says she has good and sleeping well; feels like she is doing the right things and making the right choices and is proud of herself. Continues to focus on dispo plan Mental Status Exam Mental Status Exam Narrative: Pt is alert and oriented; behavior is cooperative, calm, friendly, organized, in good behavioral control; patient is not in distress; dressed in casual attire with adequate hygiene; mood is described as good and affect overall calm, brighter; eye contact appropriate; Speech normal rate, volume and prosody; no psychomotor agitation/retardation present; thought process is organized and goal directed; Thought content is on tx,aftercare, mourning; otherwise pertinent to relevant topics and without any delusional content, paranoid ideations or grandiosity; denies any SI/HI. Denies AVH and there is no evidence of perceptual disturbance. Patients insight and judgment fair. Diagnostics Vital Signs (24Hr): Vital Signs - 24 hr 11/25/24 20:22 11/26/24 09:43 Temperature 98.1 F 98 F Pulse Rate 102 H 82 Respiratory Rate 16 Blood Pressure 122/68 94/59 L Pulse Oximetry 97 98 Oxygen Delivery Method Room Air Room Air BMI result Body Mass Index 23.5 Labs 11/17/24 06:34 11/18/24 08:13 Labs: Laboratory Results - last 48 hr 11/24/24 13:45 Valproic Acid 38.0 L Medications Medications Current Medications Acetaminophen (Acetaminophen 325 Mg Tablet) 650 mg PO Q6H PRN PRN Reason: Headache/Pain, Scale 1-10 Al Hydroxide/Mg Hydroxide (Magnesium Hydrox/Alum Hydrox 30 Ml Oral.Susp) 30 ml PO Q6H PRN PRN Reason: Heartburn/Nausea Aripiprazole (Aripiprazole 2 Mg Tablet) 2 mg PO BEDTIME [facility] Last Admin: 11/25/24 21:25 Dose: 2 mg Celecoxib (Celecoxib 200 Mg Capsule) 200 mg PO BID [facility] Last Admin: 11/26/24 08:13 Dose: 200 mg Cyclobenzaprine HCl (Cyclobenzaprine Hcl 5 Mg Tablet) 5 mg PO BEDTIME [facility] Last Admin: 11/25/24 21:24 Dose: 5 mg Divalproex Sodium (Divalproex Sodium Er 500 Mg Tab.Er.24h) 1,000 mg PO BEDTIME [facility] Last Admin: 11/25/24 21:24 Dose: 1,000 mg Duloxetine HCl (Duloxetine Hcl 30 Mg Capsule.Dr) 30 mg PO BID [facility] Last Admin: 11/26/24 08:13 Dose: 30 mg Hydroxyzine HCl (Hydroxyzine Hcl 25 Mg Tablet) 25 mg PO Q6H PRN PRN Reason: mild anxiety Levetiracetam (Levetiracetam 500 Mg Tablet) 500 mg PO BID [facility] Last Admin: 11/26/24 08:13 Dose: 500 mg Magnesium Hydroxide (Milk Of Magnesia 30 Ml Oral.Susp) 30 ml PO DAILY PRN PRN Reason: Constipation Methadone HCl (Methadone Hcl 20 Mg/2 Ml Oral.Conc) 15 mg PO DAILY [facility] Last Admin: 11/26/24 08:11 Dose: 15 mg Nicotine Polacrilex (Nicotine Polacrilex 2 Mg Gum) 4 mg BUCCAL Q2H PRN PRN Reason: Nicotine Cravings Olanzapine (Olanzapine 5 Mg Tablet) 5 mg PO TID PRN PRN Reason: agitation Last Admin: 11/20/24 15:45 Dose: 5 mg Ondansetron HCl (Ondansetron Odt 4 Mg Tab.Rapdis) 4 mg TRANSLINGU Q6H PRN PRN Reason: Nausea Last Admin: 11/25/24 08:45 Dose: 4 mg Oxycodone HCl (Oxycodone Hcl Immed Release 5 Mg Tablet) 10 mg PO QID [facility] Last Admin: 11/26/24 08:13 Dose: 10 mg Trazodone HCl (Trazodone Hcl 50 Mg Tablet) 150 mg PO BEDTIME [facility] Last Admin: 11/25/24 21:25 Dose: 150 mg Trazodone HCl (Trazodone Hcl 50 Mg Tablet) 50 mg PO BEDTIME MRX1 PRN PRN Reason: Insomnia Allergies Allergies Allergy/AdvReac Type Severity Reaction Status Date / Time amoxicillin [AMOXICILLIN] Allergy Intermediate RASH Verified 11/16/24 21:29 Penicillins [PENICILLINS] Allergy Intermediate RASH Verified 11/16/24 21:29 topiramate [From Topamax] AdvReac Unknown Unknown Verified 11/16/24 21:29 lamictal AdvReac Unknown Unknown Uncoded 11/16/24 21:29 Assessment & Plan Assessment & Plan (1) Bipolar I disorder: Status: Acute Code(s): F31.9 - Bipolar disorder, unspecified (2) PTSD (post-traumatic stress disorder): Status: Acute Code(s): F43.10 - Post-traumatic stress disorder, unspecified (3) Complex partial seizure disorder: Status: Acute Code(s): G40.209 - Localization-related (focal) (partial) symptomatic epilepsy and epileptic syndromes with complex partial seizures, not intractable, without status epilepticus (4) Opioid use disorder, moderate, in early remission, on maintenance therapy, dependence: Status: Acute Code(s): F11.21 - Opioid dependence, in remission (5) Cocaine use disorder: Status: Acute Code(s): F14.10 - Cocaine abuse, uncomplicated (6) Cardiac pacemaker in situ: Status: Acute Code(s): Z95.0 - Presence of cardiac pacemaker (7) Closed left fibular fracture: Qualifiers: Encounter type: initial encounter Fibula location: distal Status: Acute Code(s): S82.402A - Unspecified fracture of shaft of left fibula, initial encounter for closed fracture (8) Fracture of medial malleolus, left, closed: Qualifiers: Encounter type: subsequent encounter Fracture alignment: displaced Fracture healing: with routine healing Qualified Code(s): S82.52XD - Displaced fracture of medial malleolus of left tibia, subsequent encounter for closed fracture with routine healing Status: Acute Code(s): S82.52XA - Displaced fracture of medial malleolus of left tibia, initial encounter for closed fracture (9) Osteoarthritis of knees, bilateral: Status: Acute Code(s): M17.0 - Bilateral primary osteoarthritis of knee Plan Patient is a 49-year-old female with history of bipolar disorder, PTSD, cocaine and opiate use disorder, seizure disorder, left foot fracture status post surgical repair with plates, osteoarthritis b/l knees pending knee replacement, pacemaker (status post arrhythmia from methadone) who presents for manic episode in the face of relapse and cocaine and going off her medication. Patient reports that she has been sober from opiates for 3 years; during the spring summer and fall she remains stable but when winter comes she struggles with seasonal affect disorder and the approaching anniversary of her 's in September. She says that this time of year is always difficult for her and for the past 2 or 3 months she will remain sober for about 2 weeks and then nut picker [cocaine] for 1 day and repeat this pattern. Patient remains on her medications and lives with her mother and stepfather however supportive. This past week, patient was feeling particularly sad about her loved one, got into an argument with her parents and left the house to use crack cocaine. Although she usually comes back after day this time she called her mother and said she is not coming back but wants her medications; her mother in an effort to get the patient safely home, refused to give her any of her medications including her Keppra, Depakote and scheduled oxycodone which she has been on for several years (mother also called PCP prescriber who did not refill oxycodone). Patient's depression worsened and so did her drug use; due to oxycodone withdrawal and increasing pain, patient used heroin for the 1st time in 3 years which she deeply regrets. Patient became manic, and does know how she ended up naked in the bushes. Patient reports she has been manic for the past week and can tell the difference between manic symptoms and cocaine high; explaining that even now, days after the cocaine use, her mind is still racing and she still can not sleep dot dot dot patient reports having recent seizures as well. She very much wants to get back on her medications. No SI. Formulation/clinical reason: Patient presents as distraught and hypomanic, talking fast and having trouble sleeping. Very much wants to get back on medications which he says are helpful and being restarted. Child Care Worker reviewed [facility] and patient is prescribed oxycodone 10 mg q.i.d. which patient says she has been on for years; patient reports that she was taken off methadone due to an arrhythmia and now has a pacemaker (patient was on methadone 222 mg, developed an arrhythmia, received a pacemaker and was tapered down to current dose of 15 mg). Will restart home medications. Patient says she was recently started on Abilify 2 mg to help prevent manic episodes. 11/21 Patient reports that her mood is better and that she is sleeping well; manic symptoms resolved. Discussed medication regimen and patient agrees to restart Cymbalta. Pain overall managed enough 11/22 pt reports she feels better; dealing well and coping appropriately with high acuity on the unit. Showed health underwriter mildly swollen left ankle that was recently sprained; does not want ibuprofen. Mother visited who remains supportive and welcomes patient back home but wonders if pt will benefit from a program; pt concurs and program options discussed. 11/23 Patient reports that she is overall doing better, mood is better, sleeping well, anxiety under control though remains. Patient agreeing to go to a substance abuse program and working with social work work on dispo. Discussed patient's orthopedic issues including left fibular fracture repair done at [facility] about 2 years ago; patient also works with [facility] regarding pending bilateral knee replacement. Patient described that she needs clearance from her neurologist and also device repair technician Dr. Woody prior to getting knee replacement surgery which seems to be part of the hold up. Patient was informed that she needs to demonstrate continued stability on pacemaker prior to surgery and has a pending appointment in December with device repair technician. -Discussed getting oxycodone from Dr. Lantigua. Patient said that she is willing to sign opioid contract, give random urines etc. Child Care Worker spoke with Dr. Lantigua who agrees that patient can continue on current regimen but will need to come under much more strict adherence if he is to continue prescribing -start Flexeril 5mg qhs for leg muscle aches 11/24 discussed pain meds, her pcp, knee replacement; discussed aftercare and pt agrees she will benefit from program. remains stable, good mood, optimistic 11/25 Neuro assessed and increased seizure meds remains stable, good behavioral control; engaged in tx; stable on current med regimen 11/26 remains stable; continue current treatment plan Patient is stable on current medication regimen Patient in good behavioral and impulse control, appropriate with peers and staff and engaged in treatment, attending groups and forthcoming in one on one sessions. Plan: CV Q 15 minute Continue Keppra Continue Depakote Continue oxycodone 10 mg q.i.d. scheduled (patient is prescribed this as an outpatient for years; not worth risking increase of methadone to deal with pain) Continue methadone 15 mg daily Continue Abilify 2 mg Continue duloxetine 30 mg b.i.d. Continue Celebrex 200 mg b.i.d. -patient asks for STD testing since she has no idea why she was naked Patient educated on: diagnosis, medication risk/benefits, substance abuse and medical condition Informed Consent: understands Reason for continued inpatient stay Substantial Risk for: stable for discharge Time Spent With Patient Time: Total time managing care of this patient today ____ minutes.
[2024-11-26] MEDS: Cyclobenzaprine HCl 5 MG TABLET PO (20:09)
[2024-11-26] MEDS: traZODone HCL 50 MG TABLET 150 MG PO (20:11)
[2024-11-26] MEDS: ARIPiprazole 2 MG TABLET PO (20:11)
[2024-11-26] MEDS: Divalproex Sodium ER 500 MG TAB.ER.24H 1000 MG PO (20:11)
[2024-11-27] MEDS: oxyCODONE HCl Immed Release 5 MG TABLET 10 MG PO ×4 (07:42→20:11)
[2024-11-27] MEDS: methADONE HCl 20 MG/2 ML ORAL.CONC 15 MG PO (07:42)
[2024-11-27] MEDS: levETIRAcetam 500 MG TABLET PO (07:43)
[2024-11-27] MEDS: DULoxetine HCl 30 MG CAPSULE.DR PO ×2 (07:43→20:12)
[2024-11-27] MEDS: Celecoxib 200 MG CAPSULE PO ×2 (07:43→20:13)
[2024-11-27 07:57] VITALS: BP 90/54; PULSE 70; TEMP 36.6; O2SAT 95
--- NOTE | 2024-11-27 09:37 | HO.PSYCHPN ---
Subjective Subjective Date of Service: 11/27/24 Reason For Visit: decompensation Interim History: met with patient; discussed with team Remains doing well, good behavioral and impulse control, getting along with peers. Says she feels great has no complaints or requests. At moments patient feeling overwhelmed with milieu but katherin well and removes herself as needed. Mental Status Exam Mental Status Exam Narrative: Pt is alert and oriented; behavior is cooperative, calm, friendly, organized, in good behavioral control; patient is not in distress; dressed in casual attire with adequate hygiene; mood is described as great and affect overall calm, bright; eye contact appropriate; Speech normal rate, volume and prosody; no psychomotor agitation/retardation present; thought process is organized and goal directed; Thought content is on tx,aftercare, mourning; otherwise pertinent to relevant topics and without any delusional content, paranoid ideations or grandiosity; denies any SI/HI. Denies AVH and there is no evidence of perceptual disturbance. Patients insight and judgment fair. Diagnostics Vital Signs (24Hr): Vital Signs - 24 hr 11/26/24 09:43 11/27/24 07:57 11/27/24 07:57 Temperature 98 F 97.8 F 97.8 F Pulse Rate 82 70 70 Respiratory Rate 16 Blood Pressure 94/59 L 90/54 L 90/54 L Pulse Oximetry 98 95 95 Oxygen Delivery Method Room Air Room Air Room Air BMI result Body Mass Index 23.5 Labs 11/17/24 06:34 11/18/24 08:13 Medications Medications Current Medications Acetaminophen (Acetaminophen 325 Mg Tablet) 650 mg PO Q6H PRN PRN Reason: Headache/Pain, Scale 1-10 Al Hydroxide/Mg Hydroxide (Magnesium Hydrox/Alum Hydrox 30 Ml Oral.Susp) 30 ml PO Q6H PRN PRN Reason: Heartburn/Nausea Aripiprazole (Aripiprazole 2 Mg Tablet) 2 mg PO BEDTIME [facility] Last Admin: 11/26/24 20:11 Dose: 2 mg Celecoxib (Celecoxib 200 Mg Capsule) 200 mg PO BID [facility] Last Admin: 11/27/24 07:43 Dose: 200 mg Cyclobenzaprine HCl (Cyclobenzaprine Hcl 5 Mg Tablet) 5 mg PO BEDTIME [facility] Last Admin: 11/26/24 20:09 Dose: 5 mg Divalproex Sodium (Divalproex Sodium Er 500 Mg Tab.Er.24h) 1,000 mg PO BEDTIME [facility] Last Admin: 11/26/24 20:11 Dose: 1,000 mg Duloxetine HCl (Duloxetine Hcl 30 Mg Capsule.Dr) 30 mg PO BID [facility] Last Admin: 11/27/24 07:43 Dose: 30 mg Hydroxyzine HCl (Hydroxyzine Hcl 25 Mg Tablet) 25 mg PO Q6H PRN PRN Reason: mild anxiety Levetiracetam (Levetiracetam 500 Mg Tablet) 500 mg PO BID [facility] Last Admin: 11/27/24 07:43 Dose: 500 mg Magnesium Hydroxide (Milk Of Magnesia 30 Ml Oral.Susp) 30 ml PO DAILY PRN PRN Reason: Constipation Methadone HCl (Methadone Hcl 20 Mg/2 Ml Oral.Conc) 15 mg PO DAILY [facility] Last Admin: 11/27/24 07:42 Dose: 15 mg Nicotine Polacrilex (Nicotine Polacrilex 2 Mg Gum) 4 mg BUCCAL Q2H PRN PRN Reason: Nicotine Cravings Olanzapine (Olanzapine 5 Mg Tablet) 5 mg PO TID PRN PRN Reason: agitation Last Admin: 11/20/24 15:45 Dose: 5 mg Ondansetron HCl (Ondansetron Odt 4 Mg Tab.Rapdis) 4 mg TRANSLINGU Q6H PRN PRN Reason: Nausea Last Admin: 11/25/24 08:45 Dose: 4 mg Oxycodone HCl (Oxycodone Hcl Immed Release 5 Mg Tablet) 10 mg PO QID [facility] Last Admin: 11/27/24 07:42 Dose: 10 mg Trazodone HCl (Trazodone Hcl 50 Mg Tablet) 150 mg PO BEDTIME [facility] Last Admin: 11/26/24 20:11 Dose: 150 mg Trazodone HCl (Trazodone Hcl 50 Mg Tablet) 50 mg PO BEDTIME MRX1 PRN PRN Reason: Insomnia Allergies Allergies Allergy/AdvReac Type Severity Reaction Status Date / Time amoxicillin [AMOXICILLIN] Allergy Intermediate RASH Verified 11/16/24 21:29 Penicillins [PENICILLINS] Allergy Intermediate RASH Verified 11/16/24 21:29 topiramate [From Topamax] AdvReac Unknown Unknown Verified 11/16/24 21:29 lamictal AdvReac Unknown Unknown Uncoded 11/16/24 21:29 Assessment & Plan Assessment & Plan (1) Bipolar I disorder: Status: Acute Code(s): F31.9 - Bipolar disorder, unspecified (2) PTSD (post-traumatic stress disorder): Status: Acute Code(s): F43.10 - Post-traumatic stress disorder, unspecified (3) Complex partial seizure disorder: Status: Acute Code(s): G40.209 - Localization-related (focal) (partial) symptomatic epilepsy and epileptic syndromes with complex partial seizures, not intractable, without status epilepticus (4) Opioid use disorder, moderate, in early remission, on maintenance therapy, dependence: Status: Acute Code(s): F11.21 - Opioid dependence, in remission (5) Cocaine use disorder: Status: Acute Code(s): F14.10 - Cocaine abuse, uncomplicated (6) Cardiac pacemaker in situ: Status: Acute Code(s): Z95.0 - Presence of cardiac pacemaker (7) Closed left fibular fracture: Qualifiers: Encounter type: initial encounter Fibula location: distal Status: Acute Code(s): S82.402A - Unspecified fracture of shaft of left fibula, initial encounter for closed fracture (8) Fracture of medial malleolus, left, closed: Qualifiers: Encounter type: subsequent encounter Fracture alignment: displaced Fracture healing: with routine healing Qualified Code(s): S82.52XD - Displaced fracture of medial malleolus of left tibia, subsequent encounter for closed fracture with routine healing Status: Acute Code(s): S82.52XA - Displaced fracture of medial malleolus of left tibia, initial encounter for closed fracture (9) Osteoarthritis of knees, bilateral: Status: Acute Code(s): M17.0 - Bilateral primary osteoarthritis of knee Plan Patient is a 49-year-old female with history of bipolar disorder, PTSD, cocaine and opiate use disorder, seizure disorder, left foot fracture status post surgical repair with plates, osteoarthritis b/l knees pending knee replacement, pacemaker (status post arrhythmia from methadone) who presents for manic episode in the face of relapse and cocaine and going off her medication. Patient reports that she has been sober from opiates for 3 years; during the spring summer and fall she remains stable but when winter comes she struggles with seasonal affect disorder and the approaching anniversary of her 's in September. She says that this time of year is always difficult for her and for the past 2 or 3 months she will remain sober for about 2 weeks and then merchandise pickup/receiving associate [cocaine] for 1 day and repeat this pattern. Patient remains on her medications and lives with her mother and stepfather however supportive. This past week, patient was feeling particularly sad about her loved one, got into an argument with her parents and left the house to use crack cocaine. Although she usually comes back after day this time she called her mother and said she is not coming back but wants her medications; her mother in an effort to get the patient safely home, refused to give her any of her medications including her Keppra, Depakote and scheduled oxycodone which she has been on for several years (mother also called PCP prescriber who did not refill oxycodone). Patient's depression worsened and so did her drug use; due to oxycodone withdrawal and increasing pain, patient used heroin for the 1st time in 3 years which she deeply regrets. Patient became manic, and does know how she ended up naked in the bushes. Patient reports she has been manic for the past week and can tell the difference between manic symptoms and cocaine high; explaining that even now, days after the cocaine use, her mind is still racing and she still can not sleep dot dot dot patient reports having recent seizures as well. She very much wants to get back on her medications. No SI. Formulation/clinical reason: Patient presents as distraught and hypomanic, talking fast and having trouble sleeping. Very much wants to get back on medications which he says are helpful and being restarted. Customer Support Executive reviewed [facility] and patient is prescribed oxycodone 10 mg q.i.d. which patient says she has been on for years; patient reports that she was taken off methadone due to an arrhythmia and now has a pacemaker (patient was on methadone 222 mg, developed an arrhythmia, received a pacemaker and was tapered down to current dose of 15 mg). Will restart home medications. Patient says she was recently started on Abilify 2 mg to help prevent manic episodes. 11/21 Patient reports that her mood is better and that she is sleeping well; manic symptoms resolved. Discussed medication regimen and patient agrees to restart Cymbalta. Pain overall managed enough 11/22 pt reports she feels better; dealing well and coping appropriately with high acuity on the unit. Showed automobile service writer mildly swollen left ankle that was recently sprained; does not want ibuprofen. Mother visited who remains supportive and welcomes patient back home but wonders if pt will benefit from a program; pt concurs and program options discussed. 11/23 Patient reports that she is overall doing better, mood is better, sleeping well, anxiety under control though remains. Patient agreeing to go to a substance abuse program and working with social work work on dispo. Discussed patient's orthopedic issues including left fibular fracture repair done at [place] about 2 years ago; patient also works with [facility] regarding pending bilateral knee replacement. Patient described that she needs clearance from her neurologist and also owner professional engineer Dr. Woody prior to getting knee replacement surgery which seems to be part of the hold up. Patient was informed that she needs to demonstrate continued stability on pacemaker prior to surgery and has a pending appointment in December with owner professional engineer. -Discussed getting oxycodone from Dr. Lantigua. Patient said that she is willing to sign opioid contract, give random urines etc. Customer Support Executive spoke with Dr. Lantigua who agrees that patient can continue on current regimen but will need to come under much more strict adherence if he is to continue prescribing -start Flexeril 5mg qhs for leg muscle aches 11/24 discussed pain meds, her pcp, knee replacement; discussed aftercare and pt agrees she will benefit from program. remains stable, good mood, optimistic 11/25 Neuro assessed and increased seizure meds remains stable, good behavioral control; engaged in tx; stable on current med regimen 11/26 remains stable; continue current treatment plan 11/27 continue treatment plan -will get Depakote labs since recently increased by neuro Patient is stable on current medication regimen Patient in good behavioral and impulse control, appropriate with peers and staff and engaged in treatment, attending groups and forthcoming in one on one sessions. Plan: CV Q 15 minute Continue Keppra recently increased by neuro Continue Depakote recently increased by neuro Continue oxycodone 10 mg q.i.d. scheduled (patient is prescribed this as an outpatient for years; not worth risking increase of methadone to deal with pain) Continue methadone 15 mg daily Continue Abilify 2 mg Continue duloxetine 30 mg b.i.d. Continue Celebrex 200 mg b.i.d. -patient asks for STD testing since she has no idea why she was naked Patient educated on: diagnosis and therapeutic strategies Informed Consent: understands Reason for continued inpatient stay Substantial Risk for: stable for discharge Time Spent With Patient Time: Total time managing care of this patient today ____ minutes.
[2024-11-27] MEDS: Divalproex Sodium ER 500 MG TAB.ER.24H PO (14:36)
[2024-11-27] MEDS: levETIRAcetam 250 MG TABLET PO (14:36)
[2024-11-27 19:52] VITALS: BP 90/51; PULSE 90; TEMP 36.9; O2SAT 97
[2024-11-27] MEDS: Cyclobenzaprine HCl 5 MG TABLET PO (20:12)
[2024-11-27] MEDS: Divalproex Sodium ER 500 MG TAB.ER.24H 1000 MG PO (20:12)
[2024-11-27] MEDS: ARIPiprazole 2 MG TABLET PO (20:12)
[2024-11-27] MEDS: levETIRAcetam 250 MG TABLET 750 MG PO (20:13)
[2024-11-27] MEDS: traZODone HCL 50 MG TABLET 150 MG PO (20:14)
[2024-11-28] MEDS: Ondansetron ODT 4 MG TAB.RAPDIS TRANSLINGU (06:39)
[2024-11-28 07:51] VITALS: BP 90/54; PULSE 77; RESP 18; TEMP 36.8; O2SAT 97
[2024-11-28] MEDS: methADONE HCl 20 MG/2 ML ORAL.CONC 15 MG PO (07:53)
[2024-11-28] MEDS: oxyCODONE HCl Immed Release 5 MG TABLET 10 MG PO ×4 (08:30→20:23)
[2024-11-28] MEDS: Divalproex Sodium ER 500 MG TAB.ER.24H PO (08:30)
[2024-11-28] MEDS: levETIRAcetam 250 MG TABLET 750 MG PO ×2 (08:31→19:01)
[2024-11-28] MEDS: Celecoxib 200 MG CAPSULE PO ×2 (08:31→20:24)
[2024-11-28] MEDS: DULoxetine HCl 30 MG CAPSULE.DR PO ×2 (08:49→20:24)
--- NOTE | 2024-11-28 09:48 | P.PNPSI_ITS ---
Subjective Subjective Date of Service: 11/28/24 Reason For Visit: decompensation Interim History: Met with patient; discussed with team Patient remains stable, good mood, future oriented; getting a little frustrated with milieu acuity and hoping discharge option come soon though, Patient has limited some of the places she is willing to go. Mental Status Exam Mental Status Exam Narrative: Pt is alert and oriented; behavior is cooperative, calm, friendly, organized, in good behavioral control; patient is not in distress; dressed in casual attire with adequate hygiene; mood is described as good and affect overall calm, bright; eye contact appropriate; Speech normal rate, volume and prosody; no psychomotor agitation/retardation present; thought process is organized and goal directed; Thought content is on tx,aftercare, mourning; otherwise pertinent to relevant topics and without any delusional content, paranoid ideations or grandiosity; denies any SI/HI. Denies AVH and there is no evidence of perceptual disturbance. Patients insight and judgment fair. Diagnostics Vital Signs (24Hr): Vital Signs - 24 hr 11/27/24 19:52 11/28/24 07:51 Temperature 98.4 F 98.2 F Pulse Rate 90 77 Respiratory Rate 18 Blood Pressure 90/51 L 90/54 L Pulse Oximetry 97 97 Oxygen Delivery Method Room Air BMI result Body Mass Index 23.5 Labs 11/17/24 06:34 11/18/24 08:13 Medications Medications Current Medications Acetaminophen (Acetaminophen 325 Mg Tablet) 650 mg PO Q6H PRN PRN Reason: Headache/Pain, Scale 1-10 Al Hydroxide/Mg Hydroxide (Magnesium Hydrox/Alum Hydrox 30 Ml Oral.Susp) 30 ml PO Q6H PRN PRN Reason: Heartburn/Nausea Aripiprazole (Aripiprazole 2 Mg Tablet) 2 mg PO BEDTIME [facility] Last Admin: 11/27/24 20:12 Dose: 2 mg Celecoxib (Celecoxib 200 Mg Capsule) 200 mg PO BID [facility] Last Admin: 11/28/24 08:31 Dose: 200 mg Cyclobenzaprine HCl (Cyclobenzaprine Hcl 5 Mg Tablet) 5 mg PO BEDTIME [facility] Last Admin: 11/27/24 20:12 Dose: 5 mg Divalproex Sodium (Divalproex Sodium Er 500 Mg Tab.Er.24h) 1,000 mg PO BEDTIME [facility] Last Admin: 11/27/24 20:12 Dose: 1,000 mg Divalproex Sodium (Divalproex Sodium Er 500 Mg Tab.Er.24h) 500 mg PO DAILY [facility] Last Admin: 11/28/24 08:30 Dose: 500 mg Duloxetine HCl (Duloxetine Hcl 30 Mg Capsule.Dr) 30 mg PO BID [facility] Last Admin: 11/28/24 08:49 Dose: 30 mg Hydroxyzine HCl (Hydroxyzine Hcl 25 Mg Tablet) 25 mg PO Q6H PRN PRN Reason: mild anxiety Levetiracetam (Levetiracetam 250 Mg Tablet) 750 mg PO BID [facility] Last Admin: 11/28/24 08:31 Dose: 750 mg Magnesium Hydroxide (Milk Of Magnesia 30 Ml Oral.Susp) 30 ml PO DAILY PRN PRN Reason: Constipation Methadone HCl (Methadone Hcl 20 Mg/2 Ml Oral.Conc) 15 mg PO DAILY [facility] Last Admin: 11/28/24 07:53 Dose: 15 mg Nicotine Polacrilex (Nicotine Polacrilex 2 Mg Gum) 4 mg BUCCAL Q2H PRN PRN Reason: Nicotine Cravings Olanzapine (Olanzapine 5 Mg Tablet) 5 mg PO TID PRN PRN Reason: agitation Last Admin: 11/20/24 15:45 Dose: 5 mg Ondansetron HCl (Ondansetron Odt 4 Mg Tab.Rapdis) 4 mg TRANSLINGU Q6H PRN PRN Reason: Nausea Last Admin: 11/28/24 06:39 Dose: 4 mg Oxycodone HCl (Oxycodone Hcl Immed Release 5 Mg Tablet) 10 mg PO QID [facility] Last Admin: 11/28/24 08:30 Dose: 10 mg Trazodone HCl (Trazodone Hcl 50 Mg Tablet) 150 mg PO BEDTIME [facility] Last Admin: 11/27/24 20:14 Dose: 150 mg Trazodone HCl (Trazodone Hcl 50 Mg Tablet) 50 mg PO BEDTIME MRX1 PRN PRN Reason: Insomnia Allergies Allergies Allergy/AdvReac Type Severity Reaction Status Date / Time amoxicillin [AMOXICILLIN] Allergy Intermediate RASH Verified 11/16/24 21:29 Penicillins [PENICILLINS] Allergy Intermediate RASH Verified 11/16/24 21:29 topiramate [From Topamax] AdvReac Unknown Unknown Verified 11/16/24 21:29 lamictal AdvReac Unknown Unknown Uncoded 11/16/24 21:29 Assessment & Plan Assessment & Plan (1) Bipolar I disorder: Status: Acute Code(s): F31.9 - Bipolar disorder, unspecified (2) PTSD (post-traumatic stress disorder): Status: Acute Code(s): F43.10 - Post-traumatic stress disorder, unspecified (3) Complex partial seizure disorder: Status: Acute Code(s): G40.209 - Localization-related (focal) (partial) symptomatic epilepsy and epileptic syndromes with complex partial seizures, not intractable, without status epilepticus (4) Opioid use disorder, moderate, in early remission, on maintenance therapy, dependence: Status: Acute Code(s): F11.21 - Opioid dependence, in remission (5) Cocaine use disorder: Status: Acute Code(s): F14.10 - Cocaine abuse, uncomplicated (6) Cardiac pacemaker in situ: Status: Acute Code(s): Z95.0 - Presence of cardiac pacemaker (7) Closed left fibular fracture: Qualifiers: Encounter type: initial encounter Fibula location: distal Status: Acute Code(s): S82.402A - Unspecified fracture of shaft of left fibula, initial encounter for closed fracture (8) Fracture of medial malleolus, left, closed: Qualifiers: Encounter type: subsequent encounter Fracture alignment: displaced F racture healing: with routine healing Qualified Code(s): S82.52XD - Displaced fracture of medial malleolus of left tibia, subsequent encounter for closed fracture with routine healing Status: Acute Code(s): S82.52XA - Displaced fracture of medial malleolus of left tibia, initial encounter for closed fracture (9) Osteoarthritis of knees, bilateral: Status: Acute Code(s): M17.0 - Bilateral primary osteoarthritis of knee Plan Patient is a 49-year-old female with history of bipolar disorder, PTSD, cocaine and opiate use disorder, seizure disorder, left foot fracture status post surgical repair with plates, osteoarthritis b/l knees pending knee replacement, pacemaker (status post arrhythmia from methadone) who presents for manic episode in the face of relapse and cocaine and going off her medication. Patient reports that she has been sober from opiates for 3 years; during the spring summer and fall she remains stable but when winter comes she struggles with seasonal affect disorder and the approaching anniversary of her 's in September. She says that this time of year is always difficult for her and for the past 2 or 3 months she will remain sober for about 2 weeks and then mixing picker tender [cocaine] for 1 day and repeat this pattern. Patient remains on her medications and lives with her mother and stepfather however supportive. This past week, patient was feeling particularly sad about her loved one, got into an argument with her parents and left the house to use crack cocaine. Although she usually comes back after day this time she called her mother and said she is not coming back but wants her medications; her mother in an effort to get the patient safely home, refused to give her any of her medications including her Keppra, Depakote and scheduled oxycodone which she has been on for several years (mother also called PCP prescriber who did not refill oxycodone). Patient's depression worsened and so did her drug use; due to oxycodone withdrawal and increasing pain, patient used heroin for the 1st time in 3 years which she deeply regrets. Patient became manic, and does know how she ended up naked in the bushes. Patient reports she has been manic for the past week and can tell the difference between manic symptoms and cocaine high; explaining that even now, days after the cocaine use, her mind is still racing and she still can not sleep dot dot dot patient reports having recent seizures as well. She very much wants to get back on her medications. No SI. Formulation/clinical reason: Patient presents as distraught and hypomanic, talking fast and having trouble sleeping. Very much wants to get back on medications which he says are helpful and being restarted. Sign Board Erector reviewed [facility] and patient is prescribed oxycodone 10 mg q.i.d. which patient says she has been on for years; patient reports that she was taken off methadone due to an arrhythmia and now has a pacemaker (patient was on methadone 222 mg, developed an arrhythmia, received a pacemaker and was tapered down to current dose of 15 mg). Will restart home medications. Patient says she was recently started on Abilify 2 mg to help prevent manic episodes. 11/21 Patient reports that her mood is better and that she is sleeping well; manic symptoms resolved. Discussed medication regimen and patient agrees to restart Cymbalta. Pain overall managed enough 11/22 pt reports she feels better; dealing well and coping appropriately with high acuity on the unit. Showed narrative writer mildly swollen left ankle that was recently sprained; does not want ibuprofen. Mother visited who remains supportive and welcomes patient back home but wonders if pt will benefit from a program; pt concurs and program options discussed. 11/23 Patient reports that she is overall doing better, mood is better, sleeping well, anxiety under control though remains. Patient agreeing to go to a substance abuse program and working with social work work on dispo. Discussed patient's orthopedic issues including left fibular fracture repair done at [facility] about 2 years ago; patient also works with [facility] regarding pending bilateral knee replacement. Patient described that she needs clearance from her neurologist and also hand plug shaper Dr. Woody prior to getting knee replacement surgery which seems to be part of the hold up. Patient was informed that she needs to demonstrate continued stability on pacemaker prior to surgery and has a pending appointment in December with hand plug shaper. -Discussed getting oxycodone from Dr. Lantigua. Patient said that she is willing to sign opioid contract, give random urines etc. Sign Board Erector spoke with Dr. Lantigua who agrees that patient can continue on current regimen but will need to come under much more strict adherence if he is to continue prescribing -start Flexeril 5mg qhs for leg muscle aches 11/24 discussed pain meds, her pcp, knee replacement; discussed aftercare and pt agrees she will benefit from program. remains stable, good mood, optimistic 11/25 Neuro assessed and increased seizure meds remains stable, good behavioral control; engaged in tx; stable on current med regimen 11/26 remains stable; continue current treatment plan 11/27 continue treatment plan -will get Depakote labs since recently increased by neuro 11/28 stable; continue treatment plan; continue dispo planning -constipated; ordered MiraLax Patient is stable on current medication regimen Patient in good behavioral and impulse control, appropriate with peers and staff and engaged in treatment, attending groups and forthcoming in one on one sessions. Plan: CV Q 15 minute Continue Keppra recently increased by neuro Continue Depakote recently increased by neuro Continue oxycodone 10 mg q.i.d. scheduled (patient is prescribed this as an outpatient for years; not worth risking increase of methadone to deal with pain) Continue methadone 15 mg daily Continue Abilify 2 mg Continue duloxetine 30 mg b.i.d. Continue Celebrex 200 mg b.i.d. -patient asks for STD testing since she has no idea why she was naked Patient educated on: diagnosis and medication risk/benefits Informed Consent: understands Reason for continued inpatient stay Substantial Risk for: stable for discharge Time Spent With Patient Time: Total time managing care of this patient today ____ minutes.
[2024-11-28] MEDS: Bismuth Subsalicylate 262 MG TABLET PO (11:28)
[2024-11-28] MEDS: Milk of Magnesia 30 ML ORAL.SUSP PO (11:29)
[2024-11-28] MEDS: polyethylene glycoL 3350 17 GM POWD.PACK PO (12:28)
[2024-11-28 16:30] LABS: Levetiracetam Keppra 17.3 mcg/mL (6.0-46.0)
--- NOTE | 2024-11-28 18:59 | PC.NURSE ---
Notified provider Irasema Riddle of patient reports of having a sz aura. Hospitalist consulted and advised to give 9 pm sz meds now and he will come assess. Pt VS stable and in no acute distress.
[2024-11-28 19:00] VITALS: BP 117/57; PULSE 87; RESP 18; TEMP 36.9; O2SAT 95
[2024-11-28] MEDS: Divalproex Sodium ER 500 MG TAB.ER.24H 1000 MG PO (19:01)
[2024-11-28 19:48] VITALS: BP 117/57; PULSE 87; RESP 16; TEMP 36.9; O2SAT 95
[2024-11-28] MEDS: Cyclobenzaprine HCl 5 MG TABLET PO (20:23)
[2024-11-28] MEDS: traZODone HCL 50 MG TABLET 150 MG PO (20:24)
[2024-11-28] MEDS: ARIPiprazole 2 MG TABLET PO (20:24)
[2024-11-28] MEDS: LORazepam 0.5 MG TABLET PO (20:24)
--- NOTE | 2024-11-28 21:47 | PM.EVENT ---
Event Note Date of Service: 11/28/24 Event Note: Attempted to see patient due to concern for aura and history of seizures but patient was unable to be seen as she was in the shower. She did receive her seizure meds and additional lorazepam 0.5mg. Consult Neurology if seizure occurs. Hospitalist team to follow up in the morning. Time Spent With Patient Time: Total time managing care of this patient today ____ minutes.
[2024-11-29] MEDS: methADONE HCl 20 MG/2 ML ORAL.CONC 15 MG PO (07:41)
[2024-11-29 08:00] VITALS: BP 94/50; PULSE 82; RESP 16; TEMP 37; O2SAT 96
[2024-11-29] MEDS: levETIRAcetam 250 MG TABLET 750 MG PO ×2 (08:20→21:01)
[2024-11-29] MEDS: oxyCODONE HCl Immed Release 5 MG TABLET 10 MG PO ×4 (08:20→21:00)
[2024-11-29] MEDS: DULoxetine HCl 30 MG CAPSULE.DR PO ×2 (08:21→21:00)
[2024-11-29] MEDS: Divalproex Sodium ER 500 MG TAB.ER.24H PO (08:21)
[2024-11-29] MEDS: Celecoxib 200 MG CAPSULE PO ×2 (08:21→21:01)
--- NOTE | 2024-11-29 09:49 | HO.PSYCHPN ---
Subjective Subjective Date of Service: 11/29/24 Reason For Visit: decompensation Interim History: met with patient; discussed with team Patient remained stable and optimistic. Today she is feeling anxious because her mother is going to the cardiac worm farm laborer; otherwise focused on discharge plan and getting into a program. She has brought up the idea of respite if a program is not available and is discussing this with social work. Mental Status Exam Mental Status Exam Narrative: Pt is alert and oriented; behavior is cooperative, calm, friendly, organized, in good behavioral control; patient is not in distress; dressed in casual attire with adequate hygiene; mood is described as anxious and affect congruent, though overall calm, bright; eye contact appropriate; Speech normal rate, volume and prosody; no psychomotor agitation/retardation present; thought process is organized and goal directed; Thought content is on tx,aftercare, mourning; otherwise pertinent to relevant topics and without any delusional content, paranoid ideations or grandiosity; denies any SI/HI. Denies AVH and there is no evidence of perceptual disturbance. Patients insight and judgment fair. Diagnostics Vital Signs (24Hr): Vital Signs - 24 hr 11/28/24 19:00 11/28/24 19:48 Temperature 98.5 F 98.5 F Pulse Rate 87 87 Respiratory Rate 18 16 Blood Pressure 117/57 L 117/57 L Pulse Oximetry 95 95 Oxygen Delivery Method Room Air Room Air BMI result Body Mass Index 23.5 Labs 11/17/24 06:34 11/18/24 08:13 Labs: Laboratory Results - last 48 hr 11/24/24 13:45 Levetiracetam 17.3 Medications Medications Current Medications Acetaminophen (Acetaminophen 325 Mg Tablet) 650 mg PO Q6H PRN PRN Reason: Headache/Pain, Scale 1-10 Al Hydroxide/Mg Hydroxide (Magnesium Hydrox/Alum Hydrox 30 Ml Oral.Susp) 30 ml PO Q6H PRN PRN Reason: Heartburn/Nausea Aripiprazole (Aripiprazole 2 Mg Tablet) 2 mg PO BEDTIME [facility] Last Admin: 11/28/24 20:24 Dose: 2 mg Celecoxib (Celecoxib 200 Mg Capsule) 200 mg PO BID MELISSA Last Admin: 11/29/24 08:21 Dose: 200 mg Cyclobenzaprine HCl (Cyclobenzaprine Hcl 5 Mg Tablet) 5 mg PO BEDTIME [facility] Last Admin: 11/28/24 20:23 Dose: 5 mg Divalproex Sodium (Divalproex Sodium Er 500 Mg Tab.Er.24h) 1,000 mg PO BEDTIME [facility] Last Admin: 11/28/24 19:01 Dose: 1,000 mg Divalproex Sodium (Divalproex Sodium Er 500 Mg Tab.Er.24h) 500 mg PO DAILY [facility] Last Admin: 11/29/24 08:21 Dose: 500 mg Duloxetine HCl (Duloxetine Hcl 30 Mg Capsule.Dr) 30 mg PO BID [facility] Last Admin: 11/29/24 08:21 Dose: 30 mg Hydroxyzine HCl (Hydroxyzine Hcl 25 Mg Tablet) 25 mg PO Q6H PRN PRN Reason: mild anxiety Levetiracetam (Levetiracetam 250 Mg Tablet) 750 mg PO BID [facility] Last Admin: 11/29/24 08:20 Dose: 750 mg Magnesium Hydroxide (Milk Of Magnesia 30 Ml Oral.Susp) 30 ml PO DAILY PRN PRN Reason: Constipation Last Admin: 11/28/24 11:29 Dose: 30 ml Methadone HCl (Methadone Hcl 20 Mg/2 Ml Oral.Conc) 15 mg PO DAILY [facility] Last Admin: 11/29/24 07:41 Dose: 15 mg Nicotine Polacrilex (Nicotine Polacrilex 2 Mg Gum) 4 mg BUCCAL Q2H PRN PRN Reason: Nicotine Cravings Olanzapine (Olanzapine 5 Mg Tablet) 5 mg PO TID PRN PRN Reason: agitation Last Admin: 11/20/24 15:45 Dose: 5 mg Ondansetron HCl (Ondansetron Odt 4 Mg Tab.Rapdis) 4 mg TRANSLINGU Q6H PRN PRN Reason: Nausea Last Admin: 11/28/24 06:39 Dose: 4 mg Oxycodone HCl (Oxycodone Hcl Immed Release 5 Mg Tablet) 10 mg PO QID [facility] Last Admin: 11/29/24 08:20 Dose: 10 mg Polyethylene Glycol (Polyethylene Glycol 3350 17 Gm Powd.Pack) 17 gm PO DAILY PRN PRN Reason: continued Constipation Trazodone HCl (Trazodone Hcl 50 Mg Tablet) 150 mg PO BEDTIME [facility] Last Admin: 11/28/24 20:24 Dose: 150 mg Trazodone HCl (Trazodone Hcl 50 Mg Tablet) 50 mg PO BEDTIME MRX1 PRN PRN Reason: Insomnia Allergies Allergies Allergy/AdvReac Type Severity Reaction Status Date / Time amoxicillin [AMOXICILLIN] Allergy Intermediate RASH Verified 11/16/24 21:29 Penicillins [PENICILLINS] Allergy Intermediate RASH Verified 11/16/24 21:29 topiramate [From Topamax] AdvReac Unknown Unknown Verified 11/16/24 21:29 lamictal AdvReac Unknown Unknown Uncoded 11/16/24 21:29 Assessment & Plan Assessment & Plan (1) Bipolar I disorder: Status: Acute Code(s): F31.9 - Bipolar disorder, unspecified (2) PTSD (post-traumatic stress disorder): Status: Acute Code(s): F43.10 - Post-traumatic stress disorder, unspecified (3) Complex partial seizure disorder: Status: Acute Code(s): G40.209 - Localization-related (focal) (partial) symptomatic epilepsy and epileptic syndromes with complex partial seizures, not intractable, without status epilepticus (4) Opioid use disorder, moderate, in early remission, on maintenance therapy, dependence: Status: Acute Code(s): F11.21 - Opioid dependence, in remission (5) Cocaine use disorder: Status: Acute Code(s): F14.10 - Cocaine abuse, uncomplicated (6) Cardiac pacemaker in situ: Status: Acute Code(s): Z95.0 - Presence of cardiac pacemaker (7) Closed left fibular fracture: Qualifiers: Encounter type: initial encounter Fibula location: distal Status: Acute Code(s): S82.402A - Unspecified fracture of shaft of left fibula, initial encounter for closed fracture (8) Fracture of medial malleolus, left, closed: Qualifiers: Encounter type: subsequent encounter Fracture alignment: displaced Fracture healing: with routine healing Qualified Code(s): S82.52XD - Displaced fracture of medial malleolus of left tibia, subsequent encounter for closed fracture with routine healing Status: Acute Code(s): S82.52XA - Displaced fracture of medial malleolus of left tibia, initial encounter for closed fracture (9) Osteoarthritis of knees, bilateral: Status: Acute Code(s): M17.0 - Bilateral primary osteoarthritis of knee Plan Patient is a 49-year-old female with history of bipolar disorder, PTSD, cocaine and opiate use disorder, seizure disorder, left foot fracture status post surgical repair with plates, osteoarthritis b/l knees pending knee replacement, pacemaker (status post arrhythmia from methadone) who presents for manic episode in the face of relapse and cocaine and going off her medication. Patient reports that she has been sober from opiates for 3 years; during the spring summer and fall she remains stable but when winter comes she struggles with seasonal affect disorder and the approaching anniversary of her 's in September. She says that this time of year is always difficult for her and for the past 2 or 3 months she will remain sober for about 2 weeks and then medicinal plant picker [cocaine] for 1 day and repeat this pattern. Patient remains on her medications and lives with her mother and stepfather however supportive. This past week, patient was feeling particularly sad about her loved one, got into an argument with her parents and left the house to use crack cocaine. Although she usually comes back after day this time she called her mother and said she is not coming back but wants her medications; her mother in an effort to get the patient safely home, refused to give her any of her medications including her Keppra, Depakote and scheduled oxycodone which she has been on for several years (mother also called PCP prescriber who did not refill oxycodone). Patient's depression worsened and so did her drug use; due to oxycodone withdrawal and increasing pain, patient used heroin for the 1st time in 3 years which she deeply regrets. Patient became manic, and does know how she ended up naked in the bushes. Patient reports she has been manic for the past week and can tell the difference between manic symptoms and cocaine high; explaining that even now, days after the cocaine use, her mind is still racing and she still can not sleep dot dot dot patient reports having recent seizures as well. She very much wants to get back on her medications. No SI. Formulation/clinical reason: Patient presents as distraught and hypomanic, talking fast and having trouble sleeping. Very much wants to get back on medications which he says are helpful and being restarted. Bike Technician reviewed [facility] and patient is prescribed oxycodone 10 mg q.i.d. which patient says she has been on for years; patient reports that she was taken off methadone due to an arrhythmia and now has a pacemaker (patient was on methadone 222 mg, developed an arrhythmia, received a pacemaker and was tapered down to current dose of 15 mg). Will restart home medications. Patient says she was recently started on Abilify 2 mg to help prevent manic episodes. 11/21 Patient reports that her mood is better and that she is sleeping well; manic symptoms resolved. Discussed medication regimen and patient agrees to restart Cymbalta. Pain overall managed enough 11/22 pt reports she feels better; dealing well and coping appropriately with high acuity on the unit. Showed continuity writer mildly swollen left ankle that was recently sprained; does not want ibuprofen. Mother visited who remains supportive and welcomes patient back home but wonders if pt will benefit from a program; pt concurs and program options discussed. 11/23 Patient reports that she is overall doing better, mood is better, sleeping well, anxiety under control though remains. Patient agreeing to go to a substance abuse program and working with social work work on dispo. Discussed patient's orthopedic issues including left fibular fracture repair done at [place] about 2 years ago; patient also works with [facility] regarding pending bilateral knee replacement. Patient described that she needs clearance from her neurologist and also silverware etcher Dr. Woody prior to getting knee replacement surgery which seems to be part of the hold up. Patient was informed that she needs to demonstrate continued stability on pacemaker prior to surgery and has a pending appointment in December with silverware etcher. -Discussed getting oxycodone from Dr. Lantigua. Patient said that she is willing to sign opioid contract, give random urines etc. Bike Technician spoke with Dr. Lantigua who agrees that patient can continue on current regimen but will need to come under much more strict adherence if he is to continue prescribing -start Flexeril 5mg qhs for leg muscle aches 11/24 discussed pain meds, her pcp, knee replacement; discussed aftercare and pt agrees she will benefit from program. remains stable, good mood, optimistic 11/25 Neuro assessed and increased seizure meds remains stable, good behavioral control; engaged in tx; stable on current med regimen 11/26 remains stable; continue current treatment plan 11/27 continue treatment plan -will get Depakote labs since recently increased by neuro 11/28 stable; continue treatment plan; continue dispo planning -constipated; ordered MiraLax 11/29 continue current treatment plan -Keppra level pending Patient is stable on current medication regimen Patient in good behavioral and impulse control, appropriate with peers and staff and engaged in treatment, attending groups and forthcoming in one on one sessions. Plan: CV Q 15 minute Continue Keppra recently increased by neuro Continue Depakote recently increased by neuro Continue oxycodone 10 mg q.i.d. scheduled (patient is prescribed this as an outpatient for years; not worth risking increase of methadone to deal with pain) Continue methadone 15 mg daily Continue Abilify 2 mg Continue duloxetine 30 mg b.i.d. Continue Celebrex 200 mg b.i.d. -patient asks for STD testing since she has no idea why she was naked Patient educated on: diagnosis, medication risk/benefits, substance abuse and therapeutic strategies Informed Consent: understands Reason for continued inpatient stay Substantial Risk for: stable for discharge Time Spent With Patient Time: Total time managing care of this patient today ____ minutes.
[2024-11-29 20:00] VITALS: BP 92/57; PULSE 96; TEMP 36.6; O2SAT 96
[2024-11-29] MEDS: traZODone HCL 50 MG TABLET 150 MG PO (21:00)
[2024-11-29] MEDS: Divalproex Sodium ER 500 MG TAB.ER.24H 1000 MG PO (21:01)
[2024-11-29] MEDS: Cyclobenzaprine HCl 5 MG TABLET PO (21:01)
[2024-11-29] MEDS: ARIPiprazole 2 MG TABLET PO (21:01)
[2024-11-30] MEDS: methADONE HCl 20 MG/2 ML ORAL.CONC 15 MG PO (07:47)
[2024-11-30 07:54] LABS: Ammonia 49 umol/L (13-55)
[2024-11-30 08:00] VITALS: BP 93/61; PULSE 84; RESP 16; TEMP 36.5; O2SAT 100
[2024-11-30 08:07] LABS: Valproate 72.1 mcg/mL (50.0-100.0)
[2024-11-30 08:08] LABS: Alanine Aminotransferase 97 U/L (0-31); Albumin Level 3.3 g/dL (3.5-5.0); Alkaline Phosphatase 99 U/L (39-117); Aspartate Amino Transferase 65 U/L (5-31); Bilirubin Direct < 0.2 mg/dL (0.0-0.5); Bilirubin Total 0.2 mg/dL (0.0-1.0); Total Protein 5.7 g/dL (6.5-8.0)
[2024-11-30] MEDS: oxyCODONE HCl Immed Release 5 MG TABLET 10 MG PO ×3 (08:21→16:09)
[2024-11-30] MEDS: Celecoxib 200 MG CAPSULE PO (08:35)
[2024-11-30] MEDS: DULoxetine HCl 30 MG CAPSULE.DR PO (08:35)
[2024-11-30] MEDS: levETIRAcetam 250 MG TABLET 750 MG PO (08:35)
[2024-11-30] MEDS: Divalproex Sodium ER 500 MG TAB.ER.24H PO (08:35)
--- NOTE | 2024-11-30 09:24 | P.PNPSI_ITS ---
Subjective Subjective Date of Service: 11/30/24 Reason For Visit: decompensation Interim History: Met with patient; discussed with team Doing well, future oriented and looking forward to discharge. Patient agrees to go to respite while waiting to get into program which she has been accepted and waiting for a bed. Discussed elevated LFTs and the likelihood of increased Depakote; patient understands and agrees to starting l-carnitine; will get labs next week and follow up with outpatient neurologist who had Depakote increased. Mental Status Exam Mental Status Exam Narrative: Pt is alert and oriented; behavior is cooperative, calm, friendly, organized, in good behavioral control; patient is not in distress; dressed in casual attire with adequate hygiene; mood is described as good and affect congruent, calm, bright; eye contact appropriate; Speech normal rate, volume and prosody; no psychomotor agitation/retardation present; thought process is organized and goal directed; Thought content is on tx,aftercare, mourning; otherwise pertinent to relevant topics and without any delusional content, paranoid ideations or grandiosity; denies any SI/HI. Denies AVH and there is no evidence of perceptual disturbance. Patients insight and judgment fair. Diagnostics Vital Signs (24Hr): Vital Signs - 24 hr 11/29/24 20:00 Temperature 97.8 F Pulse Rate 96 Blood Pressure 92/57 L Pulse Oximetry 96 Oxygen Delivery Method Room Air BMI result Body Mass Index 23.5 Labs 11/17/24 06:34 11/18/24 08:13 Labs: Laboratory Results - last 48 hr 11/24/24 11/30/24 13:45 07:28 Total Bilirubin 0.2 Direct Bilirubin < 0.2 AST 65 H ALT 97 H Alkaline Phosphatase 99 Ammonia 49 Total Protein 5.7 L Albumin 3.3 L Valproic Acid 72.1 Levetiracetam 17.3 Medications Medications Current Medications Acetaminophen (Acetaminophen 325 Mg Tablet) 650 mg PO Q6H PRN PRN Reason: Headache/Pain, Scale 1-10 Al Hydroxide/Mg Hydroxide (Magnesium Hydrox/Alum Hydrox 30 Ml Oral.Susp) 30 ml PO Q6H PRN PRN Reason: Heartburn/Nausea Aripiprazole (Aripiprazole 2 Mg Tablet) 2 mg PO BEDTIME [facility] Last Admin: 11/29/24 21:01 Dose: 2 mg Celecoxib (Celecoxib 200 Mg Capsule) 200 mg PO BID [facility] Last Admin: 11/30/24 08:35 Dose: 200 mg Cyclobenzaprine HCl (Cyclobenzaprine Hcl 5 Mg Tablet) 5 mg PO BEDTIME [facility] Last Admin: 11/29/24 21:01 Dose: 5 mg Divalproex Sodium (Divalproex Sodium Er 500 Mg Tab.Er.24h) 1,000 mg PO BEDTIME [facility] Last Admin: 11/29/24 21:01 Dose: 1,000 mg Divalproex Sodium (Divalproex Sodium Er 500 Mg Tab.Er.24h) 500 mg PO DAILY [facility] Last Admin: 11/30/24 08:35 Dose: 500 mg Duloxetine HCl (Duloxetine Hcl 30 Mg Capsule.Dr) 30 mg PO BID [facility] Last Admin: 11/30/24 08:35 Dose: 30 mg Hydroxyzine HCl (Hydroxyzine Hcl 25 Mg Tablet) 25 mg PO Q6H PRN PRN Reason: mild anxiety Levetiracetam (Levetiracetam 250 Mg Tablet) 750 mg PO BID [facility] Last Admin: 11/30/24 08:35 Dose: 750 mg Magnesium Hydroxide (Milk Of Magnesia 30 Ml Oral.Susp) 30 ml PO DAILY PRN PRN Reason: Constipation Last Admin: 11/28/24 11:29 Dose: 30 ml Methadone HCl (Methadone Hcl 20 Mg/2 Ml Oral.Conc) 15 mg PO DAILY [facility] Last Admin: 11/30/24 07:47 Dose: 15 mg Nicotine Polacrilex (Nicotine Polacrilex 2 Mg Gum) 4 mg BUCCAL Q2H PRN PRN Reason: Nicotine Cravings Olanzapine (Olanzapine 5 Mg Tablet) 5 mg PO TID PRN PRN Reason: agitation Last Admin: 11/20/24 15:45 Dose: 5 mg Ondansetron HCl (Ondansetron Odt 4 Mg Tab.Rapdis) 4 mg TRANSLINGU Q6H PRN PRN Reason: Nausea Last Admin: 11/28/24 06:39 Dose: 4 mg Oxycodone HCl (Oxycodone Hcl Immed Release 5 Mg Tablet) 10 mg PO QID [facility] Last Admin: 11/30/24 08:21 Dose: 10 mg Polyethylene Glycol (Polyethylene Glycol 3350 17 Gm Powd.Pack) 17 gm PO DAILY PRN PRN Reason: continued Constipation Trazodone HCl (Trazodone Hcl 50 Mg Tablet) 150 mg PO BEDTIME [facility] Last Admin: 11/29/24 21:00 Dose: 150 mg Trazodone HCl (Trazodone Hcl 50 Mg Tablet) 50 mg PO BEDTIME MRX1 PRN PRN Reason: Insomnia Allergies Allergies Allergy/AdvReac Type Severity Reaction Status Date / Time amoxicillin [AMOXICILLIN] Allergy Intermediate RASH Verified 11/16/24 21:29 Penicillins [PENICILLINS] Allergy Intermediate RASH Verified 11/16/24 21:29 topiramate [From Topamax] AdvReac Unknown Unknown Verified 11/16/24 21:29 lamictal AdvReac Unknown Unknown Uncoded 11/16/24 21:29 Assessment & Plan Assessment & Plan (1) Bipolar I disorder: Status: Acute Code(s): F31.9 - Bipolar disorder, unspecified (2) PTSD (post-traumatic stress disorder): Status: Acute Code(s): F43.10 - Post-traumatic stress disorder, unspecified (3) Complex partial seizure disorder: Status: Acute Code(s): G40.209 - Localization-related (focal) (partial) symptomatic epilepsy and epileptic syndromes with complex partial seizures, not intractable, without status epilepticus (4) Opioid use disorder, moderate, in early remission, on maintenance therapy, dependence: Status: Acute Code(s): F11.21 - Opioid dependence, in remission (5) Cocaine use disorder: Status: Acute Code(s): F14.10 - Cocaine abuse, uncomplicated (6) Cardiac pacemaker in situ: Status: Acute Code(s): Z95.0 - Presence of cardiac pacemaker (7) Closed left fibular fracture: Qualifiers: Encounter type: initial encounter Fibula location: distal Status: Acute Code(s): S82.402A - Unspecified fracture of shaft of left fibula, initial encounter for closed fracture (8) Fracture of medial malleolus, left, closed: Qualifiers: Encounter type: subsequent encounter Fracture alignment: displaced F racture healing: with routine healing Qualified Code(s): S82.52XD - Displaced fracture of medial malleolus of left tibia, subsequent encounter for closed fracture with routine healing Status: Acute Code(s): S82.52XA - Displaced fracture of medial malleolus of left tibia, initial encounter for closed fracture (9) Osteoarthritis of knees, bilateral: Status: Acute Code(s): M17.0 - Bilateral primary osteoarthritis of knee Plan Patient is a 49-year-old female with history of bipolar disorder, PTSD, cocaine and opiate use disorder, seizure disorder, left foot fracture status post surgical repair with plates, osteoarthritis b/l knees pending knee replacement, pacemaker (status post arrhythmia from methadone) who presents for manic episode in the face of relapse and cocaine and going off her medication. Patient reports that she has been sober from opiates for 3 years; during the spring summer and fall she remains stable but when winter comes she struggles with seasonal affect disorder and the approaching anniversary of her 's in September. 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 Patient remains on her medications and lives with her mother and stepfather however supportive. This past week, patient was feeling particularly sad about her loved one, got into an argument with her parents and left the house to use crack cocaine. Although she usually comes back after day this time she called her mother and said she is not coming back but wants her medications; her mother in an effort to get the patient safely home, refused to give her any of her medications including her Keppra, Depakote and scheduled oxycodone which she has been on for several years (mother also called PCP prescriber who did not refill oxycodone). Patient's depression worsened and so did her drug use; due to oxycodone withdrawal and increasing pain, patient used heroin for the 1st time in 3 years which she deeply regrets. Patient became manic, and does know how she ended up naked in the bushes. Patient reports she has been manic for the past week and can tell the difference between manic symptoms and cocaine high; explaining that even now, days after the cocaine use, her mind is still racing and she still can not sleep dot dot dot patient reports having recent seizures as well. She very much wants to get back on her medications. No SI. Formulation/clinical reason: Patient presents as distraught and hypomanic, talking fast and having trouble sleeping. Very much wants to get back on medications which he says are helpful and being restarted. Machine Plaster Mixer reviewed [facility] and patient is prescribed oxycodone 10 mg q.i.d. which patient says she has been on for years; patient reports that she was taken off methadone due to an arrhythmia and now has a pacemaker (patient was on methadone 222 mg, developed an arrhythmia, received a pacemaker and was tapered down to current dose of 15 mg). Will restart home medications. Patient says she was recently started on Abilify 2 mg to help prevent manic episodes. 11/21 Patient reports that her mood is better and that she is sleeping well; manic symptoms resolved. Discussed medication regimen and patient agrees to restart Cymbalta. Pain overall managed enough 11/22 pt reports she feels better; dealing well and coping appropriately with high acuity on the unit. Showed chart writer mildly swollen left ankle that was recently sprained; does not want ibuprofen. Mother visited who remains supportive and welcomes patient back home but wonders if pt will benefit from a program; pt concurs and program options discussed. 11/23 Patient reports that she is overall doing better, mood is better, sleeping well, anxiety under control though remains. Patient agreeing to go to a substance abuse program and working with social work work on dispo. Discussed patient's orthopedic issues including left fibular fracture repair done at [place] about 2 years ago; patient also works with [facility] regarding pending bilateral knee replacement. Patient described that she needs clearance from her neurologist and also mold dresser Dr. Woody prior to getting knee replacement surgery which seems to be part of the hold up. Patient was informed that she needs to demonstrate continued stability on pacemaker prior to surgery and has a pending appointment in December with mold dresser. -Discussed getting oxycodone from Dr. Lantigua. Patient said that she is willing to sign opioid contract, give random urines etc. Machine Plaster Mixer spoke with Dr. Lantigua who agrees that patient can continue on current regimen but will need to come under much more strict adherence if he is to continue prescribing -start Flexeril 5mg qhs for leg muscle aches 11/24 discussed pain meds, her pcp, knee replacement; discussed aftercare and pt agrees she will benefit from program. remains stable, good mood, optimistic 11/25 Neuro assessed and increased seizure meds remains stable, good behavioral control; engaged in tx; stable on current med regimen 11/26 remains stable; continue current treatment plan 11/27 continue treatment plan -will get Depakote labs since recently increased by neuro 11/28 stable; continue treatment plan; continue dispo planning -constipated; ordered MiraLax 11/29 continue current treatment plan -Keppra level pending 11/30 Doing well, future oriented and looking forward to discharge. Patient agrees to go to respite while waiting to get into program which she has been accepted and waiting for a bed. Discussed elevated LFTs and the likelihood of increased Depakote; patient understands and agrees to starting l-carnitine; will get labs next week and follow up with outpatient neurologist who had Depakote increased. Patient is stable on current medication regimen Patient has remained good behavioral and impulse control throughout her time in the unit; she has been appropriate with peers and staff and engaged in treatment, attending groups and forthcoming in one on one sessions. She is in a good mood and future oriented, optimistic about remaining sober and stable. She is discharging to a structured program. Patient is not in imminent risk for harm to others and appropriate to return to the community for treatment Plan: CV Q 15 minute Continue Keppra recently increased by neuro Continue Depakote recently increased by neuro Continue oxycodone 10 mg q.i.d. scheduled (patient is prescribed this as an outpatient for years; not worth risking increase of methadone to deal with pain) Continue methadone 15 mg daily Continue Abilify 2 mg Continue duloxetine 30 mg b.i.d. Continue Celebrex 200 mg b.i.d. -patient asks for STD testing since she has no idea why she was naked Patient educated on: diagnosis, medication risk/benefits, substance abuse and medical condition Informed Consent: understands Reason for continued inpatient stay Substantial Risk for: stable for discharge Time Spent With Patient Time: Total time managing care of this patient today ____ minutes.
--- NOTE | 2024-11-30 12:55 | P.DS_ITS ---
DS: Providers Provider Date of Service: 11/30/24 Date of admission: 11/17/24 15:41 Date of discharge: 11/30/24 Primary care physician: Unknown Physician Attending physician on admission: Eran Putnam Consults: 11/24/24 13:16 Consult to Neurology Routine Consulting Provider: [facility] Reason for consultation: having seizures despite on kepra 11/28/24 18:53 Consult to Hospitalist Stat Comment: Consulting Provider[place] [facility] Reason For Exam: seizure hx and feels seizure coming on- Attending physician on discharge: Eran Putnam DS: Diagnosis Discharge Diagnosis (1) Bipolar I disorder: Status: Acute (2) PTSD (post-traumatic stress disorder): Status: Acute (3) Complex partial seizure disorder: Status: Acute (4) Opioid use disorder, moderate, in early remission, on maintenance therapy, dependence: Status: Acute (5) Cocaine use disorder: Status: Acute (6) Cardiac pacemaker in situ: Status: Acute (7) Closed left fibular fracture: Status: Acute (8) Fracture of medial malleolus, left, closed: Status: Acute (9) Osteoarthritis of knees, bilateral: Status: Acute DS: Medications Discharge Medications Home Medications: Home Medications ?Medication ?Instructions ?Recorded ?Confirmed methadone 10 mg/mL oral concentrate 15 mg PO DAILY 11/17/24 11/17/24 Previous Rx's ?Medication ?Instructions ?Recorded aripiprazole 2 mg tablet (Abilify) 2 mg PO BEDTIME 30 days #30 tabs 11/30/24 celecoxib 200 mg capsule 200 mg PO BID 30 days #60 caps 11/30/24 cyclobenzaprine 5 mg tablet 5 mg PO BEDTIME 30 days #30 tabs 11/30/24 divalproex 500 mg tablet,extended 1,000 mg (2 x 500 mg) PO BEDTIME 11/30/24 release 24 hr 30 days #60 tabs divalproex 500 mg tablet,extended 500 mg PO DAILY 30 days #30 tabs 11/30/24 release 24 hr duloxetine 30 mg capsule,delayed 30 mg PO BID 30 days #60 caps 11/30/24 release levetiracetam 750 mg tablet 750 mg PO BID 30 days #60 tabs 11/30/24 levocarnitine 500 mg tablet 500 mg PO BID 30 days #60 tabs 11/30/24 (L-Carnitine) ondansetron 4 mg disintegrating 4 mg translingual Q6H PRN Nausea 11/30/24 tablet 30 days #30 tabs oxycodone 10 mg tablet 10 mg PO QID severe pain (scale 11/30/24 score 7-10) 15 days #60 tabs polyethylene glycol 3350 17 gram 17 g PO DAILY PRN continued 11/30/24 oral powder packet Constipation 30 days #30 ea trazodone 150 mg tablet 150 mg PO BEDTIME 30 days #30 tabs 11/30/24 Data Data Completed and Pending Completed studies during hospitalization [Text1]: 11/24/24 11/29/24 11/30/24 13:45 08:45 07:28 Total Bilirubin 0.2 Direct Bilirubin < 0.2 AST 65 H ALT 97 H Alkaline Phosphatase 99 Ammonia 49 Total Protein 5.7 L Albumin 3.3 L Valproic Acid 38.0 L 72.1 Levetiracetam 17.3 Pending DS: Summary Hospital Course Hospital Course: Patient is a 49-year-old female with history of bipolar disorder, PTSD, cocaine and opiate use disorder, seizure disorder, left foot fracture status post surgical repair with plates, osteoarthritis b/l knees pending knee replacement, pacemaker (status post arrhythmia from methadone) who presents for manic episode in the face of relapse and cocaine and going off her medication. Patient reports that she has been sober from opiates for 3 years; during the spring summer and fall she remains stable but when winter comes she struggles with seasonal affect disorder and the approaching anniversary of her 's in September. She says that this time of year is always difficult for her and for the past 2 or 3 months she will remain sober for about 2 weeks and then product picker [cocaine] for 1 day and repeat this pattern. Patient remains on her medications and lives with her mother and stepfather however supportive. This past week, patient was feeling particularly sad about her loved one, got into an argument with her parents and left the house to use crack cocaine. Although she usually comes back after day this time she called her mother and said she is not coming back but wants her medications; her mother in an effort to get the patient safely home, refused to give her any of her medications including her Keppra, Depakote and scheduled oxycodone which she has been on for several years (mother also called PCP prescriber who did not refill oxycodone). Patient's depression worsened and so did her drug use; due to oxycodone withdrawal and increasing pain, patient used heroin for the 1st time in 3 years which she deeply regrets. Patient became manic, and does know how she ended up naked in the bushes. Patient reports she has been manic for the past week and can tell the difference between manic symptoms and cocaine high; explaining that even now, days after the cocaine use, her mind is still racing and she still can not sleep dot dot dot patient reports having recent seizures as well. She very much wants to get back on her medications. No SI. Hospital course/Formulation/clinical reason: On admission, Patient presents as distraught and hypomanic, talking fast and having trouble sleeping. Very much wants to get back on medications which he says are helpful and being restarted. Percussion Instrument Repairer reviewed [place] [facility] and patient is prescribed oxycodone 10 mg q.i.d. which patient says she has been on for years; patient reports that she was taken off methadone due to an arrhythmia and now has a pacemaker (patient was on methadone 222 mg, developed an arrhythmia, received a pacemaker and was tapered down to current dose of 15 mg). Will rest art home medications. Patient says she was recently started on Abilify 2 mg to help prevent manic episodes. As meds were restarted patient soon returned to baseline and reported mood is better, sleeping well and manic symptoms resolved; restarted Cymbalta. Pain overall managed enough. Over subsequent days, patient remained in good mood, in good behavioral control, sleeping and eating well, appropriate with peers and engaged in treatment. 11/22 pt reports she feels better; dealing well and coping appropriately with high acuity on the unit. Showed telegraphic typewriter repairer mildly swollen left ankle that was re cently sprained; does not want ibuprofen. Mother visited who remains supportive and welcomes patient back home but wonders if pt will benefit from a program; pt concurs and program options discussed. 11/23 Patient reports that she is overall doing better, mood is better, sleeping well, anxiety under control though remains. Patient agreeing to go to a substance abuse program and working with social work work on dispo. Discussed patient's orthopedic issues including left fibular fracture repair done at [place] about 2 years ago; patient also works with [facility] regarding pending bilateral knee replacement. Patient described that she needs clearance from her neurologist and also water truck driver Dr. Woody prior to getting knee replacement surgery which seems to be part of the hold up. Patient was informed that she needs to demonstrate continued stability on pacemaker prior to surgery and has a pending appointment in December with water truck driver. -Discussed getting oxycodone from Dr. Lantigua. Patient said that she is willing to sign opioid contract, give random urines etc. Percussion Instrument Repairer spoke with Dr. Lantigua who agrees that patient can continue on current regimen but will need to come under much more strict adherence if he is to continue prescribing -start Flexeril 5mg qhs for leg muscle aches 11/24 discussed pain meds, her pcp, knee replacement; discussed aftercare and pt agrees she will benefit from program. remains stable, good mood, optimistic 11/25 Neuro assessed and increased seizure meds remains stable, good behavioral control; engaged in tx; stable on current med regimen 11/26 remains stable; continue current treatment plan 11/27 continue treatment plan -will get Depakote labs since recently increased by neuro 11/28 stable; continue treatment plan; continue dispo planning -constipated; ordered MiraLax 11/29 continue current treatment plan -Keppra level pending 11/30 Doing well, future oriented and looking forward to discharge. Patient agrees to go to respite while waiting to get into program which she has been accepted and waiting for a bed. Discussed elevated LFTs and the likelihood of increased Depakote; patient understands and agrees to starting l-carnitine; will get labs next week and follow up with outpatient neurologist who had Depakote increased. Patient is stable on current medication regimen Patient has remained good behavioral and impulse control throughout her time in the unit; she has been appropriate with peers and staff and engaged in treatment, attending groups and forthcoming in one on one sessions. She is in a good mood and future oriented, optimistic about remaining sober and stable. She is discharging to a structured program. Patient is not in imminent risk for harm to others and appropriate to return to the community for treatment Plan: CV Q 15 minute Continue Keppra recently increased by neuro Continue Depakote recently increased by neuro Continue oxycodone 10 mg q.i.d. scheduled (patient is prescribed this as an outpatient for years; not worth risking increase of methadone to deal with pain) Continue methadone 15 mg daily Continue Abilify 2 mg Continue duloxetine 30 mg b.i.d. Continue Celebrex 200 mg b.i.d. -patient asks for STD testing since she has no idea why she was naked Time Spent with Patient Time attestation: Total time managing care of this patient today ____ minutes. Discharge Plan Discharge Anticipated Discharge Date/Time: 11/30/24 15:00 Patient Disposition: Correction Discharge Diagnosis: Bipolar I disorder, in full remission Referrals: [facility] [Other] - 1 Week (Patient on wait list for CSS program. Patient should call daily to determine if there is a possibility of obtaining placement for substance use treatment.) [facility] [Other] - 12/01/24 9:30 am (Referral to [facility] program Patient will have telephone screen appointment with Ann-Marie at 9:30 am. You will have to call her at [phone]) [facility] [Other] - 1 Week (Referral to [facility] program Patient should continue to follow-up on referral after discharge to inquire about substance use treatment ) [facility] [Other] - 1 Week (Referral to [facility] program Patient should follow-up on referral after discharge to determine if there is availability for substance use treatment. Call [phone] extension #[phone]) Dr. Lantigua: [facility] [Other] - 01/06/25 9:00 am (Scheduled appointment with primary care provider) Darlene Phan: Therapist: [facility] [Other] - 12/26/24 8:30 am (Initial Therapy appointment with provider hospital discharge appointment ) Aaliyah Molina: (psychiatry): [facility] [Other] - 12/07/24 10:30 am (Hospital discharge appointment with psychiatric medication provider.) Physician,Unknown J [Primary Care Provider] - 1 Week Discharge Medications: New cyclobenzaprine 5 mg Tablet 5 mg PO BEDTIME 30 Days Qty: 30 0RF aripiprazole [Abilify] 2 mg Tablet 2 mg PO BEDTIME 30 Days Qty: 30 0RF divalproex 500 mg Tablet Extended Release 24 Hr 500 mg PO DAILY 30 Days Qty: 30 0RF levetiracetam 750 mg tablet 750 mg PO BID 30 Days Qty: 60 0RF oxycodone 10 mg tablet 10 mg PO QID 15 Days Qty: 60 0RF Rx Instructions: Partial Fill upon patient request. ondansetron 4 mg Tablet,Disintegrating 4 mg translingual Q6H PRN (Reason: Nausea) 30 Days Qty: 30 0RF polyethylene glycol 3350 17 gram Powder In Packet 17 g PO DAILY PRN (Reason: continued Constipation) 30 Days Qty: 30 0RF Rx Instructions: hold for loose stool L-Carnitine 500 mg tablet 500 mg PO BID 30 Days Qty: 60 0RF Rx Instructions: must administer with a meal/food Continued methadone 10 mg/mL Concentrate 15 mg PO DAILY celecoxib 200 mg capsule 200 mg PO BID 30 Days Qty: 60 0RF divalproex 500 mg tablet extended release 24 hr 1,000 mg PO BEDTIME 30 Days Qty: 60 0RF trazodone 150 mg tablet 150 mg PO BEDTIME 30 Days Qty: 30 0RF duloxetine 30 mg capsule,delayed release(DR/EC) 30 mg PO BID 30 Days Qty: 60 0RF Discontinued methadone 10 mg/mL Concentrate 5 mg PO BEDTIME Discharge Orders: Discharge Order (Routine); Ordered 11/30/24 Ordered By: Eran Putnam Diet: Regular diet Activity on Discharge: As tolerated Stand Alone Forms: Patient Portal Discharge page, Community Support Print Language: Romanian Other Ambulatory Orders: Liver Panel (Routine) Timeframe: 20241206 Facility: [facility] - Location: Laboratory Ordered By: Eran Putnam Care Plan Goals: Maintain mood and safe behaviors Take medications as prescribed Continue to pursue sobriety Practice coping skills Continue with outpatient providers and reach out to them as needed Health Concerns: Mood stability and behaviors Sobriety B/L knee osteoarthritis, pending b/l TKR Seizure disorder Pacemaker Plan of Treatment: Follow up with your PCP, psychiatric provider and other outpatient providers regarding above concerns Take medications as prescribed Assessment: Risk assessment at time of discharge:? Patient was interviewed prior to discharge and found to be fully oriented and without any SI or HI. Patient has improved insight and judgment and wants to continue treatment. Patient is not in imminent risk of harm to self or others and has a safety plan that includes presenting to the closest ER or calling 911 if feeling unsafe.? Patient has been observed closely by nursing and unit staff throughout admission; patient has not engaged in any behaviors that suggest dangerousness to self or others and has demonstrated appropriate behaviors and impulse control Discharge Date/Time: 11/30/24 16:40
[2024-11-30] MEDS: Ondansetron ODT 4 MG TAB.RAPDIS TRANSLINGU (15:38)
[2024-11-30] MEDS: Naloxone HCl Nasal TAKE HOME 4 MG SPRAY 8 MG NOSTRILALT (15:39)
[2024-12-01 23:43] LABS: Levetiracetam Keppra 19.4 mcg/mL (6.0-46.0)
== END 2024-11-30 16:40 | disposition home or self-care (01) | DRG 885 ==
LOC: HO.ED 23:59 → HO.PM5 11-17 17:11
PROVIDERS: Nurse Practitioner Family; Admitting Provider Psychiatry & Neurology Psychiatry; Emergency Provider Emergency Medicine; Visit Provider Psychiatry & Neurology Psychiatry
DX: F31.9 Bipolar disorder, unspecified (principal); F11.20 Opioid dependence, uncomplicated; G40.209 Localization-related (focal) (partial) symptomatic epilepsy and epileptic syndromes with complex partial seizures, not intractable, without status epilepticus; Z95.0 Presence of cardiac pacemaker; F43.10 Post-traumatic stress disorder, unspecified; F14.10 Cocaine abuse, uncomplicated; M17.0 Bilateral primary osteoarthritis of knee; F17.210 Nicotine dependence, cigarettes, uncomplicated; Z71.6 Tobacco abuse counseling; Z79.899 Other long term (current) drug therapy
CPT/HCPCS: 36415; 80053; 80061; 80076; 80164; 80177; 80307; 81001; 81003; 82140; 83036; 84439; 84443; 85025; 87389; 87491; 87591; 93005; 99285; S9485

== ENCOUNTER → 2024-11-17 12:03 | Outpatient (BNV) | payer OTHER, SELFPAY | PROVIDERS: Admitting Provider Psychiatry & Neurology Psychiatry; Emergency Provider Emergency Medicine; Visit Provider Internal Medicine | DX: R41.82 Altered mental status, unspecified (principal) | CPT/HCPCS: 93010 ==

== ENCOUNTER → 2024-11-17 15:41 | Outpatient (BNV) | payer OTHER, SELFPAY | PROVIDERS: Admitting Provider Psychiatry & Neurology Psychiatry; Emergency Provider Emergency Medicine; Visit Provider Nurse Practitioner Family | DX: G40.209 Localization-related (focal) (partial) symptomatic epilepsy and epileptic syndromes with complex partial seizures, not intractable, without status epilepticus (principal) | CPT/HCPCS: 99232; 99499 ==

== ENCOUNTER → 2024-11-17 15:41 | Outpatient (BNV) | payer OTHER, SELFPAY | PROVIDERS: Admitting Provider Psychiatry & Neurology Psychiatry; Emergency Provider Emergency Medicine; Visit Provider Psychiatry & Neurology Psychiatry | DX: F31.13 Bipolar disorder, current episode manic without psychotic features, severe (principal); F11.21 Opioid dependence, in remission; F14.10 Cocaine abuse, uncomplicated; F43.11 Post-traumatic stress disorder, acute | CPT/HCPCS: 90792; 99231; 99232 ==

== ENCOUNTER → 2024-11-17 15:41 | Outpatient (BNV) | payer OTHER, SELFPAY | PROVIDERS: Admitting Provider Psychiatry & Neurology Psychiatry; Emergency Provider Emergency Medicine; Visit Provider Psychiatry & Neurology Neurology | DX: G40.209 Localization-related (focal) (partial) symptomatic epilepsy and epileptic syndromes with complex partial seizures, not intractable, without status epilepticus (principal) | CPT/HCPCS: 99222 ==

== ENCOUNTER 2024-12-12 07:50 | Outpatient (REF) | payer OTHER, SELFPAY ==
--- OUTSIDE RECORDS SUMMARY | 2024-12-12 07:52 | XMS_ITS | Encounter Summary ---
Author Organization [facility] [address] Address [address] [place] [address] Care Team Providers Care Clinical Implementation Specialist Name Role Phone Unavailable Primary Care Provider Unavailabl e Encounter Details Date Type Department Care Team (Late st Contact Info) Description 06/10/2024 Lab Requisition [facility] [address] [facility] [place] [address] Magen Lantigua MD [address] [place], [place] Prediabetes; Chronic pain syndrome Social History [...] * SST tube (06/10/2024 1:30 PM EST) [facility] Extra Tube Hold for add-ons. 06/10/2024 7:01 PM EST [facility] Comment:Auto resulted. Blood Venous blood specimen / Unknown 06/10/2024 1:30 PM EST 06/10/2024 5:16 PM EST Magen Lantigua MD LAB BLOOD ORDERABLES Final Re sult Performing Organization Address [facility]/ZIP Co de Phone Number [facility] [address] [place] [address], [place] [phone] * (ABNORMAL) Glucose, random (06/10/2024 1:30 PM EST) [facility] Glucose 118(H) 70 - 100 mg/dL LAB CHEMISTRY METHOD 06/10/2024 5:33 PM EST [facility] Blood Venous blood specimen / Unknown 06/10/2024 1:30 PM EST 06/10/2024 5:16 PM EST Magen Lantigua MD LAB BLOOD ORDERABLES Final Re sult Performing Organization Address [facility] Co de Phone Number [facility] [address] [place] [address], [place] [phone] * Lipid panel with reflex to direct LDL (06/10/2024 1:30 PM EST) [facility] Cholesterol 192 0 - 200 mg/dL [...] ORDERABLES Final Re sult Performing Organization Address [facility]/ZIP Co de Phone Number [facility] [address] [place] [address], [place] [phone] * Hemoglobin A1c (06/10/2024 1:30 PM EST) Hemoglobin A1C 4.8 <6.5 % LAB CHEMISTRY METHOD 06/12/2024 11:38 AM EST [facility] Mean Bld Glu Estim. 91 mg/dL LAB CHEMISTRY METHOD 06/12/2024 11:38 AM [facility] Blood Venous blood specimen / Unknown 06/10/2024 1:30 PM EST 06/10/2024 5:16 PM EST Magen Lantigua MD LAB BLOOD ORDERABLES Final Re sult [facility] [address] [place] [address], [place] [phone] * Valproic acid level, total (06/10/2024 1:30 PM EST) Valproic Acid, Total 72 50 - 100 mcg/mL LAB CHEMISTRY METHOD 06/10/2024 5:33 PM EST [facility] Blood Venous blood specimen / Unknown 06/10/2024 1:30 PM EST 06/10/2024 5:16 PM EST us Magen Lantigua MD LAB BLOOD ORDERABLES Final Re sult [facility] [address] [place] [address], documented in this encounter Visit Diagnoses Diagnosis Prediabetes Other abnormal glucose Chronic pain syndrome documented in this encounter
== END 2024-12-12 07:51 | disposition home or self-care (01) ==
LOC: HO.HOSX 07:50
PROVIDERS: Visit Provider Orthopaedic Surgery
DX: Z13.89 Encounter for screening for other disorder (principal)

== ENCOUNTER 2024-12-28 08:20 | Outpatient (AMB) | payer OTHER, SELFPAY ==
--- OUTSIDE RECORDS SUMMARY | 2024-12-28 08:35 | XMS_ITS | Encounter Summary ---
Author Organization [facility] Address [address] [place] [address] Care Team Providers Care Hog Ribber Name Role Phone Unavailable Primary Care Provider Unavailabl e Encounter Details Date Type Department Care Team (Late st Contact Info) Description 06/10/2024 Lab Requisition [facility] [address] [facility] [place] [address] Magen Lantigua MD [address] [place], [place] Prediabetes; Chronic pain syndrome Social History [...] * SST tube (06/10/2024 1:30 PM EST) [facility] Extra Tube Hold for add-ons. 06/10/2024 7:01 PM EST [facility] Comment:Auto resulted. Blood Venous blood specimen / Unknown 06/10/2024 1:30 PM EST 06/10/2024 5:16 PM EST Magen Lantigua MD LAB BLOOD ORDERABLES Final Re sult Performing Organization Address [facility]/ZIP Co de Phone Number [facility] [address] [place] [address], [place] [phone] * (ABNORMAL) Glucose, random (06/10/2024 1:30 PM EST) [facility] Glucose 118(H) 70 - 100 mg/dL LAB CHEMISTRY METHOD 06/10/2024 5:33 PM EST [facility] Blood Venous blood specimen / Unknown 06/10/2024 1:30 PM EST 06/10/2024 5:16 PM EST Magen Lantigua MD LAB BLOOD ORDERABLES Final Re sult Performing Organization Address [facility] Co de Phone Number [facility] [address] [place] [address], [place] [phone] * Lipid panel with reflex to direct LDL (06/10/2024 1:30 PM EST) [facility] Cholesterol 192 0 - 200 mg/dL [...] EST [facility] VLDL Cholesterol Fabian 12.2 mg/dL [...] ORDERABLES Final Re sult Performing Organization Address [facility]/ZIP Co de Phone Number [facility] [address] [place] [address], [place] [phone] * Hemoglobin A1c (06/10/2024 1:30 PM EST) Hemoglobin A1C 4.8 <6.5 % LAB CHEMISTRY METHOD 06/12/2024 11:38 AM EST [facility] Mean Bld Glu Estim. 91 mg/dL LAB CHEMISTRY METHOD 06/12/2024 11:38 AM [facility] Blood Venous blood specimen / Unknown 06/10/2024 1:30 PM EST 06/10/2024 5:16 PM EST Magen Lantigua MD LAB BLOOD ORDERABLES Final Re sult [facility] [address] [place] [address], [place] [phone] * Valproic acid level, total (06/10/2024 1:30 PM EST) Valproic Acid, Total 72 50 - 100 mcg/mL LAB CHEMISTRY METHOD 06/10/2024 5:33 PM EST [facility] Blood Venous blood specimen / Unknown 06/10/2024 1:30 PM EST 06/10/2024 5:16 PM EST us Magen Lantigua MD LAB BLOOD ORDERABLES Final Re sult [facility] ([facility] [address] [place] [address], documented in this encounter Visit Diagnoses Diagnosis Prediabetes Other abnormal glucose Chronic pain syndrome documented in this encounter
--- NOTE | 2024-12-28 08:36 | MHC.OFFVIS ---
Vital Signs 12/28/24 08:37 Height 5 ft 11 in Weight 165 lb 5.547 oz BMI 23.1 BP 104/60 Blood Pressure Location Lt brachial Position Sitting Pulse 70 Pulse Source Monitor Intake Visit Reasons: 6 mth fu w/ pacer check Allergies amoxicillin (AMOXICILLIN) Allergy (Intermediate, Verified 11/16/24 21:29) RASH Penicillins (PENICILLINS) Allergy (Intermediate, Verified 11/16/24 21:29) RASH topiramate (From Topamax) Adverse Reaction (Unknown, Verified 11/16/24 21:29) Unknown lamictal Adverse Reaction (Unknown, Uncoded 11/16/24 21:29) Unknown Medication List - Last Reconciled 12/28/24 by Lalit Woody MD aripiprazole (Abilify) 2 mg PO BEDTIME 30 days celecoxib 200 mg PO BID 30 days cyclobenzaprine 5 mg PO BEDTIME divalproex ER 500 mg PO DAILY 30 days divalproex ER 1,000 mg (2 x 500 mg) PO BEDTIME 30 days duloxetine 30 mg PO BID 30 days levetiracetam 750 mg PO BID 30 days levocarnitine (L-Carnitine) 500 mg PO BID 30 days methadone 15 mg PO DAILY ondansetron 4 mg translingual Q6H PRN 30 days oxycodone 15 mg PO QID polyethylene glycol 3350 17 grams PO DAILY PRN 30 days trazodone 150 mg PO BEDTIME 30 days HPI Comments Details: Chi comes for follow-up. She has not had any syncopal episodes. She is doing well overall. She currently is having increased episodes of petite mal seizures. She also has psychiatric disorder. She cut down on her methadone use significantly. However she has significant pain related to her ankle issues and plan for surgery. He has no significant episodes of palpitations. No heart failure symptoms. Tends to run low blood pressure. Drinks plenty of fluids as per her. [facility] Medical History (Updated 12/20/24 @ 00:02 by Background Shirley) Fracture of medial malleolus, left, closed Closed left fibular fracture Osteoarthritis of knees, bilateral Bipolar I disorder Headache, migraine Cocaine use disorder Opioid use disorder, moderate, in early remission, on maintenance therapy, dependence Bipolar disorder with depression PTSD (post-traumatic stress disorder) Cardiac pacemaker in situ Opioid use disorder Seizure disorder Clavicle fracture Narcotic abuse Seizures Asthma COPD (chronic obstructive pulmonary disease) Surgical History History of ankle surgery (08/05/23) H/O right knee surgery H/O left knee surgery Social History Household Members: Family Household Members Other:: Mother, father, daughter Housing: House Do you presently have visiting nurse or other home services: No Alcohol intake: never Comment: n/a Patient Tobacco Use Status: Current everyday Tobacco user Tobacco use type: Cigarette Cigarettes Per Day: 6 e-Cigarette/Vaping Use: Currently Using Second Hand Smoke Exposure: No Substance Use Type: Crack/Cocaine Advance Directives Date on File: 09/29/23 service: No Sexual orientation: Straight/Heterosexual Review of Systems Const Denies weakness ENT Reports no additional complaints and Denies dizziness Card Denies chest pain, Denies chest pain with activity, Denies syncope, Denies rapid heart rate, Denies pedal edema, Denies edema, Denies leg edema, Denies lightheadedness, Denies palpitations, Denies dyspnea, Denies dyspnea on exertion and Denies orthopnea Resp Reports no additional complaints, Denies cough, Denies dyspnea and Denies dyspnea on exertion GI Reports no additional complaints, Denies hematochezia and Denies change in stool character Musc Denies abnormal gait, Denies muscle cramps, Denies muscle weakness, Denies numbness, Denies radiating pain into limb and Denies tingling Neuro Denies abnormal gait, Denies dizziness, Denies syncope, Denies numbness, Denies tingling and Denies weakness Endo Denies palpitations Physical Exam Vital Signs: Last Vital Signs Pulse 70 12/28/24 08:37 BP 104/60 12/28/24 08:37 BMI result Body Mass Index 23.1 Const General: cooperative, comfortable, no acute distress, alert, awake and anxious Nutritional Appearance: average body habitus Orientation/consciousness: patient oriented x3 Neck Neck: Yes trachea midline, Yes supple and Yes no JVD Resp Effort & Inspection: normal respiratory effort Auscultation: clear to auscultation bilaterally Cardio Jugular venous distension: no JVD Rate: tachycardic Rhythm: regular rhythm Heart sounds: S1 normal heart sound present, S2 normal heart sound present, no click, no gallops, no murmurs and no rubs GI Auscultation: normal bowel sounds Skin General skin exam: no rashes or lesions noted Neuro General: patient oriented x3 and no focal motor deficits Office Procedures Cardiac Device Check Cardiac Device Check Details: Dual-chamber [place] pacemaker in place. Programmed in DDDR at 60 beats per minute. Atrial pacing 10% of the time. One episode of high ventricular rate noted most consistent with either sinus tachycardia or SVT. Atrial ventricular sensing is adequate. Atrial pacing thresholds adequate and reprogrammed to enhance battery life. Ventricular pacing thresholds are slightly elevated and reprogrammed to provide adequate safety. Lead impedance is stable. Battery life is at about 10 years [id number] Cardiac Device Check, pacemaker dual lead Procedure code (CPT) selection complete Assessment & Plan Assessment & Plan (1) Cardiac pacemaker in situ: Comment: [place] Dual Chamber placed on 09/25/23 Code(s): Z95.0 - Presence of cardiac pacemaker Category: Medical Plan: Cardiac pacemaker in-situ for syncope as well as significant sinus bradycardia. This has normalized and she has had no recurrent episodes of syncope after pacemaker placement. Discussed pacemaker management. Will follow remotely every 3 months. Follow up in the clinic in 1 year's time. (2) Low blood pressure: Code(s): I95.9 - Hypotension, unspecified Category: Medical Plan: Persists with low blood pressure. This is most likely related to her medications with orthostasis. Advised increase fluid and salt intake. Also discussed about orthostatic precautions. She understands them well. (3) Pre-operative cardiovascular examination: Code(s): Z01.810 - Encounter for preprocedural cardiovascular examination Plan: Preoperative cardiovascular risk stratification for ankle surgery under general anesthesia. This is considered intermediate risk surgery. Currently she has no cardiac symptoms at good workload. She is optimized to undergo surgery with low risk for perioperative cardiovascular morbidity mortality. Will follow up in the clinic in 1 year's time, sooner p.r.n.. Thank you for allowing me to partake in her care Medications: Changed From oxycodone Partial Fill upon patient request. 10 mg PO QID 15 days 60 tabs 0RF severe pain (scale score 7-10) To oxycodone Partial Fill upon patient request. 15 mg PO QID From cyclobenzaprine 5 mg PO BEDTIME 30 days 30 tabs 0RF To cyclobenzaprine 5 mg PO BEDTIME Coding Level of Care Code Est Pt Level 4 (79854) Complex EM visit Add On G2211 Diagnoses Cardiac pacemaker in situ Z95.0 Low blood pressure I95.9 Pre-operative cardiovascular examination Z01.810 CPT Codes Cardiac Device Check - Cardiac Device 2: [id number] Cardiac Device Check, pacemaker dual lead ([id number])
[2024-12-28 08:37] VITALS: BP 104/60; PULSE 70; BMI 23.1
== END 2024-12-28 09:01 | disposition home or self-care (01) ==
LOC: HO.HCS 08:20
PROVIDERS: Visit Provider Internal Medicine Cardiovascular Disease
DX: I95.9 Hypotension, unspecified (principal); Z95.0 Presence of cardiac pacemaker; Z01.810 Encounter for preprocedural cardiovascular examination
CPT/HCPCS: 93280; 99214; G2211

== ENCOUNTER → 2024-12-28 08:20 | Outpatient (BNVA) | payer OTHER, SELFPAY | PROVIDERS: Visit Provider Internal Medicine Cardiovascular Disease | DX: Z01.810 Encounter for preprocedural cardiovascular examination (principal); Z95.0 Presence of cardiac pacemaker; I95.9 Hypotension, unspecified | CPT/HCPCS: 93280; 99212 ==

== ENCOUNTER 2024-12-29 18:08 | Emergency (ER) | payer OTHER, SELFPAY ==
--- NOTE | ~2024-12-29 | XR_ITS ---
CLINICAL HISTORY: cp 1 view chest x-ray Comparison: None provided Findings: No consolidation or effusion. Prominent cardiac silhouette. No acute fracture. Left pectoral dual lead chamber pacemaker, lead tips project over the RA and RV. IMPRESSION: 1. No acute findings. This document has been electronically signed by: Chepe Bagley MD on 12/29/2024 19:37:36
--- NOTE | 2024-12-29 18:12 | ECG_ITS ---
Test Reason : cp Blood Pressure : */* mmHG Vent. Rate : 75 BPM Atrial Rate : 75 BPM P-R Int : 176 ms QRS Dur : 94 ms QT Int : 404 ms P-R-T Axes : 65 53 59 degrees QTcB Int : 451 ms Normal sinus rhythm Low voltage QRS Borderline ECG When compared with ECG of 17-Nov-2024 12:03, No significant change was found Referred By: Michelle Cerda Electronically Signed By: Kael Tristan
[2024-12-29 18:18] VITALS: BP 118/58; BP 95/51; PULSE 72; PULSE 75; RESP 14; TEMP 36.8; O2SAT 96; O2SAT 98; BMI 23.0
--- NOTE | 2024-12-29 18:31 | ED_ITS ---
HPI - Chest Pain General Chief Complaint: Chest Pain Stated Complaint: chest pain Time Seen by Provider: 12/29/24 18:15 Source: patient and EMS Mode of arrival: EMS Limitations: no limitations History of Present Illness ED Provider: DR. Cerda HPI narrative: 49-year-old female history of seizure, pacemaker, asthma, COPD, narcotic use disorder, PTSD, bipolar disorder, OA presented with having chest pain started 2 days ago pain is localized to the left side of the chest around the pacemaker area with no radiation, no other associated symptoms no SOB, no syncope. Patient describes the pain as stabbing pain to the left side of the chest has been more or less constant since yesterday. No recent travel, no lower extremity swelling or tenderness (patient suffered from chronic left ankle pain secondary to old fracture). No fever, no chills. Related Data Home Medications ?Medication ?Instructions ?Recorded ?Confirmed methadone 10 mg/mL oral concentrate 15 mg PO DAILY 03/0612/28/24 cyclobenzaprine 5 mg tablet 5 mg PO BEDTIME 12/28/24 0 12/28/24 oxycodone 10 mg tablet 15 mg PO QID severe pain (sc megan 12/28/24 12/28/24 score 7-10) Previous Rx's ?Medication ?Instructions ?Recorded aripiprazole 2 mg tablet (Abilify) 2 mg PO BEDTIME 30 days #30 tabs 11/30/24 celecoxib 200 mg capsule 200 mg PO BID 30 days #60 ca ps 11/30/24 divalproex 500 mg tablet,extended 1,000 mg (2 x 500 mg ) PO BEDTIME 11/30/24 release 24 hr 30 days #60 tabs divalproex 500 mg tablet,extended 500 mg PO DAILY 30 d ays #30 tabs 11/30/24 release 24 hr duloxetine 30 mg capsule,delayed 30 mg PO BID 30 days #60 caps 11/30/24 release levetiracetam 750 mg tablet 750 mg PO BID 30 days #60 tabs 11/30/24 levocarnitine 500 mg tablet 500 mg PO BID 30 days #60 tabs 11/30/24 (L-Carnitine) ondansetron 4 mg disintegrating 4 mg translingual Q6H PRN Nausea 11/30/24 tablet 30 days #30 tabs polyethylene glycol 3350 17 gram 17 g PO DAILY PRN con tinued 11/30/24 oral powder packet Constipation 30 days #30 ea trazodone 150 mg tablet 150 mg PO BEDTIME 30 days #3 0 tabs 11/30/24 Allergies Allergy/AdvReac Type Severity Reaction Status Date / Time acetaminophen (From Vicodin) Allergy Severe Anaphylaxis Verified 12/29/24 18:28 hydrocodone (From Vicodin) Allergy Severe Anaphylaxis Verified 12/29/24 18:28 amoxicillin (AMOXICILLIN) Allergy Intermediate RASH Verified 12/29/24 18:28 Penicillins (PENICILLINS) Allergy Intermediate RASH Verified 12/29/24 18:28 topiramate (From Topamax) AdvReac Unknown Unknown Verified 12/29/24 18:28 lamictal AdvReac Unknown Unknown Uncoded 12/29/24 18:28 Review of Systems 2 Review of Systems: All other systems are reviewed and are negative Constitutional: Reports as per HPI and Reports no additional constitutional complaints Eyes: Reports as per HPI and Reports no additional eye complaints Reports system reviewed and no additional complaints, except as documented Cardiovascular: Reports as per HPI and Reports no additional cardiovascular complaints Respiratory: Reports as per HPI and Reports no additional respiratory complaints Gastrointestinal: Reports as per HPI and Reports no additional gastrointestinal complaints Genitourinary: Reports no additional female genitourinary complaints Musculoskeletal: Reports no additional musculoskeletal complaints Skin/Breast: Reports system reviewed and no additional complaints, except as docu Psychiatric: Reports no additional psychiatric complaints Endocrine: Reports no additional endocrine complaints Hematologic/Lymphatic: Reports no additional hematologic/lymphatic complaints Allergic/Immunologic: Reports no additional allergic/immunologic complaints Reports system reviewed and no additional complaints, except as documented and Reports Abnormal speech present PMFSH Past Medical History Medical History Fracture of medial malleolus, left, closed Closed left fibular fracture Osteoarthritis of knees, bilateral Bipolar I disorder Headache, migraine Cocaine use disorder Opioid use disorder, moderate, in early remission, on maintenance therapy, dependence Bipolar disorder with depression PTSD (post-traumatic stress disorder) Cardiac pacemaker in situ Opioid use disorder Seizure disorder Clavicle fracture Narcotic abuse Seizures Asthma COPD (chronic obstructive pulmonary disease) Surgical History History of ankle surgery (08/05/23) H/O right knee surgery H/O left knee surgery Social History Social History Household Members: Family Household Members Other:: Mother, father, daughter Housing: House Do you presently have visiting nurse or other home services: No Unable to assess alcohol history related to: Unknown Alcohol intake: never Comment: n/a Patient Tobacco Use Status: Current everyday Tobacco user Tobacco use type: Cigarette Cigarettes Per Day: 6 Smoked in Last 30 Days: No e-Cigarette/Vaping Use: Currently Using Second Hand Smoke Exposure: No Use of substances other than those prescribed or required for medical reasons: No Substance Use Type: Crack/Cocaine Advance Directives: Yes Advance Directives on File: Yes Advance Directives Date on File: 09/29/23 Do you have a plan to hurt others: No Plan Patient : No service: No Sexual orientation: Straight/Heterosexual Physical Exam 2 Vital Signs: Vital Signs: Last Vital Signs Temp 98.3 F 12/29/24 18:40 Pulse 72 12/29/24 18:40 Resp 14 12/29/24 18:40 BP 95/51 L 12/29/24 18:40 Pulse Ox 98 12/29/24 18:40 O2 Del Method Room Air 12/29/24 18:40 BMI result Body Mass Index 23.0 Vital signs have been reviewed and appear to be correct. Blood pressure elevated. Heart rate normal. Respiratory rate normal. Temperature normal. Oxygen saturation normal. Appearance: Alert. Oriented X3. No acute distress. Head: Normal external exam. Normocephalic. Atraumatic. No Silva signs noted. No raccoon eyes noted Eyes: PERRLA. EOMI. Conjunctiva and sclera normal. Eyelids normal. ENT: TM's Normal. Pharynx normal. Uvula midline. Moist mucous membranes. No trismus noted. No drooling noted. No muffled voice noted. Neck: Normal inspection. Neck supple. FROM. No adenopathy. Thyroid Normal. No meningeal signs. No neck mass noted. CVS: Normal heart rate and rhythm. Heart sound normal. No murmurs noted. Pulses normal throughout. Respiratory: No respiratory distress. Painless inspiration. Breath sounds normal. No wheezes/rales/rhonchi noted. Chest nontender. No accessory muscle usage noted or decreased air movement noted. Abdomen: Soft and nontender. Bowel sounds normal in all 4 quadrants. No distention noted. No organomegaly noted. No visible injury noted. Back: No CVA tenderness. Full range of motion noted. Skin: Skin warm and dry. Normal skin color. Normal skin turgor. No rashes/lesions/lacerations noted. Extremities: No lower extremity edema. Extremities exhibit normal range of motion. Extremities nontender. Neuro: Oriented X 3. Cranial nerve exam: II-XII are grossly intact No motor deficit. No sensory deficit. Reflexes normal. Course Reevaluation(s) Reevaluation #1: 49-year-old female came in for evaluation of a chest pain, normal EKG, normal troponin x2, chest x-ray is unremarkable, patient has no risk for pulmonary embolism, unremarkable chest x-ray. Will reassure the patient and have her follow-up with PCP/cardiology. Time: 20:40 Medical Decision Making Differential Diagnosis Differential Diagnoses: The differential diagnosis associated with the presentation includes (ACS, pneumonia, pneumothorax, pleural effusion, pulmonary embolism, electrolyte derangement, severe anemia.) Admission/Observation Consideration of admission/observation: Escalation of care including admission/observation considered Lab Data MDM Lab Attestation statement: I reviewed the patient's lab results. 12/29/24 18:38 12/29/24 18:38 Labs: Lab Results 12/29/24 Range/Units 18:38 WBC 3.6 L (4.8-10.8) X10*3/uL RBC 3.67 L (4.20-5.50) X10*6/uL Hgb 10.5 L (12.0-16.0) g/dl Hct 30.8 L (37.0-47.0) % MCV 83.9 (80.0-98.0) fL MCH 28.6 (27.0-33.0) pg MCHC 34.1 (31.0-35.0) g/dl RDW 14.2 (11.0-16.0) % Plt Count 106 L D (160-400) X10*3/uL MPV 10.2 (9.4-12.3) fL Immature Gran % (Auto) 0.3 (0.0-0.4) % Neut % (Auto) 50.4 (45-73) % Lymph % (Auto) 36.8 (20-40) % [place] % (Auto) 10.0 (2-11) % Eos % (Auto) 2.2 (0-4) % Baso % (Auto) 0.3 (0-2) % Lymph # (Auto) 1.3 (1.2-4.9) X10*3/uL [place] # (Auto) 0.4 (0.1-1.2) X10*3/uL Eos # (Auto) 0.1 (0.0-0.4) X10*3/uL Baso # (Auto) 0.0 (0.0-0.2) X10*3/uL Abs Immat Gran (auto) 0.01 (0.00-0.03) X10*3/uL Absolute Neuts (auto) 1.8 L (2.0-8.3) x10*3/uL Absolute Nucleated RBC 0.000 (0.0-0.012) X10*3/uL Nucleated RBC % (auto) 0.0 (0.0-0.2) /100WBC Sodium 139 (135-145) mmol/L Potassium 4.7 D (3.3-5.1) mmol/L Chloride 100 (96-108) mmol/L Carbon Dioxide 31 H (22-29) mmol/L Anion Gap 13 (12-20) BUN 29 H (9-16) mg/dL Creatinine 0.84 (0.5-1.4) mg/dL Estim Creat Clear Calc 90.5 Estimated GFR > 60 Random Glucose 73 (60-115) mg/dL Calcium 8.9 (8.4-10.2) mg/dL Total Bilirubin 0.2 (0.0-1.0) mg/dL Direct Bilirubin < 0.2 (0.0-0.5) mg/dL AST 205 H (5-31) U/L ALT 115 H (0-31) U/L Alkaline Phosphatase 117 (39-117) U/L Troponin I High Sens < 2.7 (<3.5-17.0) ng/L B-Natriuretic Peptide < 10 (<100) pg/mL Total Protein 6.1 L (6.5-8.0) g/dL Albumin 3.8 (3.5-5.0) g/dL Lipase 31 (8-78) U/L Independent Interpretation I performed an independent interpretation of an: Plain X-Ray (Chest:1. No acute findings.) Radiology Impression Discussion of test interpretation with radiology: I have reviewed the radiologist's reading. Discharge Plan Discharge Clinical Impression: Atypical chest pain Patient Disposition: Home, Self-Care Instructions: Chest Pain (ED) Prescriptions: No Action methadone 10 mg/mL Concentrate 15 mg PO DAILY aripiprazole [Abilify] 2 mg Tablet 2 mg PO BEDTIME 30 Days Qty: 30 0RF celecoxib 200 mg capsule 200 mg PO BID 30 Days Qty: 60 0RF divalproex 500 mg tablet extended release 24 hr 1,000 mg PO BEDTIME 30 Days Qty: 60 0RF divalproex 500 mg Tablet Extended Release 24 Hr 500 mg PO DAILY 30 Days Qty: 30 0RF levetiracetam 750 mg tablet 750 mg PO BID 30 Days Qty: 60 0RF ondansetron 4 mg Tablet,Disintegrating 4 mg translingual Q6H PRN (Reason: Nausea) 30 Days Qty: 30 0RF polyethylene glycol 3350 17 gram Powder In Packet 17 g PO DAILY PRN (Reason: continued Constipation) 30 Days Qty: 30 0RF Rx Instructions: hold for loose stool trazodone 150 mg tablet 150 mg PO BEDTIME 30 Days Qty: 30 0RF duloxetine 30 mg capsule,delayed release(DR/EC) 30 mg PO BID 30 Days Qty: 60 0RF L-Carnitine 500 mg tablet 500 mg PO BID 30 Days Qty: 60 0RF Rx Instructions: must administer with a meal/food cyclobenzaprine 5 mg tablet 5 mg PO BEDTIME oxycodone 10 mg tablet 15 mg PO QID Rx Instructions: Partial Fill upon patient request. Referrals: Lalit Woody MD [Physician, Cardiology] Print Language: Croatian
[2024-12-29 18:40] VITALS: BP 95/51; PULSE 72; PULSE 83; RESP 14; TEMP 36.8; O2SAT 98
[2024-12-29 18:42] LABS: MANUAL DIFF FLAG NO
[2024-12-29 18:46] LABS: Basophils Percent Auto 0.3 % (0-2); Eosinophils Absolute Auto 0.1 X10*3/uL (0.0-0.4); Eosinophils Percent Auto 2.2 % (0-4); Hematocrit 30.8 % (37.0-47.0); Hemoglobin 10.5 g/dl (12.0-16.0); Imm Gran Abs Auto 0.01 X10*3/uL (0.00-0.03); Imm Gran Pct Auto 0.3 % (0.0-0.4); Lymphocytes Absolute Auto 1.3 X10*3/uL (1.2-4.9); Lymphocytes Percent Auto 36.8 % (20-40); Mean Corpuscular HGB Conc 34.1 g/dl (31.0-35.0); Mean Corpuscular Hemoglobin 28.6 pg (27.0-33.0); Mean Corpuscular Volume 83.9 fL (80.0-98.0); Mean Platelet Volume 10.2 fL (9.4-12.3); Monocytes Absolute Auto 0.4 X10*3/uL (0.1-1.2); Neutrophils Absolute Auto 1.8 x10*3/uL (2.0-8.3); Neutrophils Percent Auto 50.4 % (45-73); Platelet Count 106 X10*3/uL (160-400); Red Blood Count 3.67 X10*6/uL (4.20-5.50); Red Cell Distribution Width 14.2 % (11.0-16.0); White Blood Count 3.6 X10*3/uL (4.8-10.8)
[2024-12-29 19:01] LABS: Alanine Aminotransferase 115 U/L (0-31); Albumin Level 3.8 g/dL (3.5-5.0); Alkaline Phosphatase 117 U/L (39-117); Anion Gap 13 (12-20); Aspartate Amino Transferase 205 U/L (5-31); Bilirubin Direct < 0.2 mg/dL (0.0-0.5); Bilirubin Total 0.2 mg/dL (0.0-1.0); Blood Urea Nitrogen 29 mg/dL (9-16); Calcium 8.9 mg/dL (8.4-10.2); Carbon Dioxide 31 mmol/L (22-29); Chloride 100 mmol/L (96-108); Creatinine Clr Calc Pharmacy 90.5; Estimated Glomerular Filt Rate > 60; Glucose Random 73 mg/dL (60-115); Lipase 31 U/L (8-78); Potassium 4.7 mmol/L (3.3-5.1); Sodium 139 mmol/L (135-145); Total Protein 6.1 g/dL (6.5-8.0)
[2024-12-29 19:10] LABS: B Type Natriuretic Peptide < 10 pg/mL (<100)
[2024-12-29 19:20] LABS: Troponin-I High Sensitivity < 2.7 ng/L (<3.5-17.0)
[2024-12-29 20:41] LABS: Troponin-I High Sensitivity < 2.7 ng/L (<3.5-17.0)
[2024-12-29 20:58] VITALS: BP 90/45; PULSE 81; RESP 16; TEMP 36.5; O2SAT 96
[2024-12-29 21:27] VITALS: BP 92/55; PULSE 91; RESP 16; TEMP 37; O2SAT 97
== END 2024-12-29 21:28 | disposition home or self-care (01) ==
PROVIDERS: Emergency Provider Emergency Medicine
DX: R07.89 Other chest pain (principal); M25.572 Pain in left ankle and joints of left foot; F17.210 Nicotine dependence, cigarettes, uncomplicated; Z79.899 Other long term (current) drug therapy
CPT/HCPCS: 36415; 71045; 80048; 80076; 83690; 83880; 84484; 85025; 93005; 99283; 99285

== ENCOUNTER → 2024-12-29 18:12 | Outpatient (BNV) | payer OTHER, SELFPAY | PROVIDERS: Emergency Provider Emergency Medicine; Visit Provider Internal Medicine Cardiovascular Disease | DX: R07.89 Other chest pain (principal) | CPT/HCPCS: 93010 ==

== ENCOUNTER → 2024-12-29 18:15 | Outpatient (BNV) | payer OTHER, SELFPAY | PROVIDERS: Emergency Provider Emergency Medicine; Visit Provider Radiology Diagnostic Radiology | DX: R52 Pain, unspecified (principal) | CPT/HCPCS: 71045 ==

== ENCOUNTER 2025-01-09 09:54 | Outpatient (REF) | payer OTHER, SELFPAY ==
--- NOTE | ~2025-01-09 | XR_ITS ---
CLINICAL HISTORY: M25.579 - Pain in unspecified ankle and joints of unspecified foot 3 view left ankle Comparison: None provided Findings: No acute fractures or dislocations. Prior open reduction internal fixation of the medial and lateral malleolus with intact hardware and alignment. No significant loss of joint space, osteophytes, or erosions. No ankle effusion. No radiopaque foreign body. IMPRESSION: 1. No acute findings. 2. Prior open reduction internal fixation with intact hardware and alignment. This document has been electronically signed by: Maryann Tee MD on 01/10/2025 20:18:16
[2025-01-09 10:20] LABS: MANUAL DIFF FLAG NO
--- OUTSIDE RECORDS SUMMARY | 2025-01-09 10:32 | XMS_ITS | Encounter Summary ---
Author Organization [facility] Address [address] [place] [address] Care Team Providers Care [employer] Name Role Phone Physician, Pcp Unknown Primary Care Provider Olga vailable Encounter Details Date Type Department Care Team (Late st Contact Info) Description 06/10/2024 Lab Requisition [facility] - Main Lab [address] [facility] [place] [address] Magen Lantigua MD [address] [place] [address] Prediabetes; Chronic pain syndrome Social History Tobacco [...] * SST tube (06/10/2024 1:30 PM EST) Pathologist [facility] [place] Extra Tube Hold for add-ons. 06/10/2024 7:[address] [facility] Comment:Auto resulted. Blood Venous blood specimen / Unknown 06/10/2024 1:30 PM EST 06/10/2024 5:16 PM EST Magen Lantigua MD LAB BLOOD ORDERABLES Final Re sult Performing Organization Address City/[facility]/ZIP Co de Phone Number [facility] [address] [place] [address], [place] [phone] * (ABNORMAL) Glucose, random (06/10/2024 1:30 PM EST) [facility] Glucose 118(H) 70 - 100 mg/dL LAB CHEMISTRY METHOD 06/10/2024 5:[address] [facility] Blood Venous blood specimen / Unknown 06/10/2024 1:30 PM EST 06/10/2024 5:16 PM EST Magen Lantigua MD LAB BLOOD ORDERABLES Final Re sult Performing Organization Address [facility]/ZIP Co de Phone Number [facility] [address] [place] [address], [place] [phone] * Lipid panel with reflex to direct LDL (06/10/2024 1:30 PM EST) [facility] Cholesterol 192 0 - 200 mg/dL LAB CHEMISTRY METHOD 06/10/2024 5:[address] [facility] Triglycerides 61 0 - 150 mg/dL LAB CHEMISTRY METHOD 06/10/2024 5:[address] [facility] HDL 91 >=40 mg/dL LAB CHEMISTRY METHOD 06/10/2024 5:[address] [facility] LDL Calculated 89 0 - 100 mg/dL LAB CHEMISTRY METHOD 06/10/2024 5:[address] [facility] VLDL Cholesterol Fabian 12.2 mg/dL LAB CHEMISTRY METHOD 06/10/2024 5:[address] [facility] Non HDL Chol. (LDL+VLDL) 101 <145 mg/dL LAB CHEMISTRY METHOD 06/10/2024 5:[address] [facility] Chol/HDL Ratio 2.1 0.0 - 4.4 LAB CHEMISTRY METHOD 06/10/2024 5:[address] [facility] Blood Venous blood specimen / Unknown 06/10/2024 1:30 PM EST 06/10/2024 5:16 PM EST Magen Lantigua MD LAB BLOOD ORDERABLES Final Re sult Performing Organization Address [facility]/ZIP Co de Phone Number [facility] [address] [place] [address], [place] [phone] * Hemoglobin A1c (06/10/2024 1:30 PM EST) Hemoglobin A1C 4.8 <6.5 % LAB CHEMISTRY METHOD 06/12/2024 11:[address] [facility] Mean Bld Glu Estim. 91 mg/dL LAB CHEMISTRY METHOD 06/12/2024 11:38 AM [facility] Blood Venous blood specimen / Unknown 06/10/2024 1:30 PM EST 06/10/2024 5:16 PM EST Magen Lantigua MD LAB BLOOD ORDERABLES Final Re sult [facility] [address] [place] [address], [place] [phone] * Valproic acid level, total (06/10/2024 1:30 PM EST) Valproic Acid, Total 72 50 - 100 mcg/mL LAB CHEMISTRY METHOD 06/10/2024 5:[address] [facility] Blood Venous blood specimen / Unknown 06/10/2024 1:30 PM EST 06/10/2024 5:16 PM EST us Magen Lantigua MD LAB BLOOD ORDERABLES Final Re sult [facility] [address] [place] [address], documented in this encounter Visit Diagnoses Diagnosis Prediabetes Other abnormal glucose Chronic pain syndrome documented in this encounter Care Teams [employer] Relationship Specialty Start Date End Date Physician, Pcp Unknown PCP - General 01/06/25 documented as of this encounter
[2025-01-09 10:37] LABS: Basophils Percent Auto 0.5 % (0-2); Hematocrit 34.4 % (37.0-47.0); Hemoglobin 11.5 g/dl (12.0-16.0); Imm Gran Abs Auto 0.01 X10*3/uL (0.00-0.03); Imm Gran Pct Auto 0.3 % (0.0-0.4); Lymphocytes Absolute Auto 1.5 X10*3/uL (1.2-4.9); Lymphocytes Percent Auto 39.5 % (20-40); Mean Corpuscular HGB Conc 33.4 g/dl (31.0-35.0); Mean Corpuscular Hemoglobin 27.9 pg (27.0-33.0); Mean Corpuscular Volume 83.5 fL (80.0-98.0); Mean Platelet Volume 10.6 fL (9.4-12.3); Monocytes Absolute Auto 0.3 X10*3/uL (0.1-1.2); Monocytes Percent Auto 8.1 % (2-11); Neutrophils Percent Auto 50.6 % (45-73); Platelet Count 172 X10*3/uL (160-400); Red Blood Count 4.12 X10*6/uL (4.20-5.50); Red Cell Distribution Width 14.1 % (11.0-16.0); White Blood Count 3.9 X10*3/uL (4.8-10.8)
[2025-01-09 10:59] LABS: Valproate 54.5 mcg/mL (50.0-100.0)
[2025-01-09 11:09] LABS: Amphetamine Screen Urine Not Detected (Not Detect); Barbiturates, Urine Not Detected (Not Detect); Benzodiazepines Screen Urine Not Detected (Not Detect); Buprenorphine Scr Not Detected (Not Detect); Cannabinoid Screen Urine Not Detected (Not Detect); Cocaine Screen Urine Not Detected (Not Detect); Fentanyl, urine Not Detected (Not Detect); Methadone Screen, Urine Not Detected (Not Detect); Opiate Screen Urine POSITIVE (Not Detect); Oxycodone Screen Urine Positive (Not Detect); Phencyclidine Screen Urine Not Detected (Not Detect)
[2025-01-09 11:34] LABS: Free T4 (Free Thyroxine) 0.86 ng/dL (0.71-1.85)
== END 2025-01-09 09:55 | disposition home or self-care (01) ==
LOC: HO.LAB 09:54
PROVIDERS: Absent Provider Psychiatry & Neurology Psychiatry; PCP Internal Medicine; Visit Provider Orthopaedic Surgery
DX: E05.90 Thyrotoxicosis, unspecified without thyrotoxic crisis or storm (principal); F31.32 Bipolar disorder, current episode depressed, moderate; Z79.891 Long term (current) use of opiate analgesic; M25.572 Pain in left ankle and joints of left foot
CPT/HCPCS: 73610; 80164; 80307; 84439; 84443; 85025

== ENCOUNTER → 2025-01-09 10:24 | Outpatient (BNV) | payer OTHER, SELFPAY | PROVIDERS: Absent Provider Psychiatry & Neurology Psychiatry; PCP Internal Medicine; Visit Provider Student in an Organized Health Care Education/Training Program | DX: S82.002A Unspecified fracture of left patella, initial encounter for closed fracture (principal) | CPT/HCPCS: 73610 ==

== ENCOUNTER 2025-01-16 08:03 | Outpatient (REF) | payer OTHER, SELFPAY ==
--- NOTE | ~2025-01-16 | XR_ITS ---
Exam: Three-view bilateral knees TECHNIQUE: AP standing, lateral, and sunrise view lower extremity joint x-rays INDICATION: Knee pain Prior: October 23, 2023 right knee and May 04, 2023 left knee FINDINGS: Right knee: Again seen is [id number] narrowing of the medial joint space and moderate marginal osteophytes along the medial joint line but slightly increased in size. Lateral osteophytes are present along the tibial plateau. Moderate osteophytes are seen in the patellofemoral joint. There is no joint effusion. Left knee: There is moderate narrowing of the medial joint space and moderate tricompartmental marginal osteophytes increased since the prior. There is no joint effusion. XR/XR Knee Cedrick 3V Impression: Right knee: Moderate osteoarthritis, mildly progressed. Left knee: Moderate osteoarthritis, progressed since the prior Electronically signed by: Néstor Hall MD 01/16/2025 12:58 PM EDT
--- OUTSIDE RECORDS SUMMARY | 2025-01-17 08:07 | XMS_ITS | Patient Health Record ---
Author Organization [facility] Address [address], [place] [id number] Care Team Providers Care Senior Sharepoint Developer Name Role Phone Eva Lantigua Primary Care Provider [phone] Laila Molina Unavailable [phone] [facility], Nursing Unavailable [phone] Beverly Phan Unavailable [phone] Allergies Allergen (clinical drug ingredient) Drug/Non Drug Allergy documented on EMR Reaction Allergy Type Onset Date Status amoxicillin anaphylaxis Drug Allergy Act jareth Topamax headache Drug Allergy Active LaMICtal unknown Drug Allergy Active Keflex itchy Drug Allergy Active Results Component Value Reference Range Notes CBC WITH AUTO DIFF Reviewed date:02/13/2024 12:44:56 PM Interpretation:Normal Performing Lab: Notes/Report: Original Ordering Provider: EVA LANTIGUA MD [employer] [facility] [employer], a member of [address] [address] [employer] - Gracie Glass MD WBC 3.0 4.8-10.8 [...] Negative Negative Reason For Referral Reason Marilia wylie [place], [address] [place] [address] P: [phone] F: [phone] [place] Shower Mat #1 Cane #1 Hand-held shower head #1 Shower Chair #1 Diagnosis 1 Unspecified fracture of unspecified femur, initial encounter for closed fracture (S72.90XA) Diagnosis 2 Osteoarthritis of kn ee, unspecified (M17.9) Referral Organization [facility] Referring Provider First Name Eva Referring Provider Last Name Grzegorz Referring Provider Speciality Internal edicine Referred Provider Fabricio Ross [employer] General Notes Angela Martinez 02:45:37 PM > faxed to [employer] 10/17/2024 03:22:34 PM > pt. received Referral Priority Routine Reason Mar[facility], [address] [place] [address] P: [phone] F: [phone] Disposable incontinence bed pad 1/day #30 with 11 refills Pull up Briefs size Large, 1/day #30 with 11 refills Diagnosis 1 Incontinence without sensory awareness (N39.42) Diagnosis 2 Nocturia (R35.1) Referral Organization [facility] Referring Provider First Name Eva Referring Provider Last Name Grzegorz Referring Provider Speciality Internal edicine Referred Provider Fabricio Ross [employer] [facility] [employer] General Notes Angela Martinez 02:48:48 PM > [...] at bedtime for 30 days prescribed at [facility] 11/2024 Unknown baclofen 5 mg 1 tab(s) [...] 05/18/2020 Administered Tdap IM Intramuscular 10/30/2023 Administered [facility] [id number] Hepatitis B (20 or more) IM Intramuscular 10/30/2023 Administered [facility] [id number] Hepatitis A IM Intramuscular 10/30/2023 Administered [facility] [id number] PCV 20 Unknown 10/30/2023 Administered Social History [...] Status Risk Notes Problem 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) Active confirmed Problem Thyrotoxicosis (52504175) Thyrotoxicosis, unspecified without thyrotoxic crisis or storm (E05.90) Active confirmed with [facility] Problem Vitamin D deficiency (01259883) Vitamin D deficiency, unspecified (E55.9) Active confirmed Problem Overweight (688963600) Overweight (E66.3) Active confirmed Problem Cocaine abuse with intoxication, uncomplicated (F14.120) Active confirmed Problem Tobacco user (726607456) Nicotine dependence, unspecified, uncomplicated (F17.200) Active confirmed Problem Bipolar affective disorder, currently depressed, moderate (921023197) Bipolar disorder, current episode depressed, moderate (F31.32) Active confirmed Problem Bipolar disorder (94783003) Bipolar disorder, unspecified (F31.9) Active confirmed Followed by [facility] Problem Anxiety disorder (812259036) Anxiety disorder, unspecified (F41.9) Active confirmed Problem Posttraumatic stress disorder (52140545) Post-traumatic stress disorder, chronic (F43.12) Active confirmed Followed by [facility] Problem Epilepsy (49130080) Epilepsy, unspecified, not intractable, without status epilepticus (G40.909) Active confirmed Neurologist- [facility] Problem Chronic migraine without aura, non-refractory (disorder) (141314274349091 ) Migraine without aura, not intractable, without status migrainosus (G43.009) Active confirmed Neurologist- [facility] Problem Insomnia (246947145) Insomnia, unspecified (G47.00) Active confirmed Followed by [facility] Problem Polyneuropathy (48472281) Polyneuropathy in diseases classified elsewhere (G63) Active confirmed Problem Chronic pain syndrome (844228697) Chronic pain syndrome (G89.4) Active confirmed Followed by endocrine Problem Chronic sinusitis (18173133) Chronic sinusitis, unspecified (J32.9) Active confirmed Problem Mild intermittent asthma (528550135) Mild intermittent asthma, uncomplicated (J45.20) Active confirmed Problem Osteoarthritis of knee (209877056) Osteoarthritis of knee, unspecified (M17.9) Active confirmed Problem Backache (916939227) Dorsalgia, unspecified (M54.9) Active confirmed Problem Incontinence without sensory awareness (239880199) Incontinence without sensory awareness (N39.42) Active confirmed Problem Menopause (117707603) Menopausal and female climacteric states (N95.1) Active confirmed s/p oophorectomy for ovarian cancer Problem Closed fracture of femur (00412468) Unspecified fracture of unspecified femur, initial encounter for closed fracture (S72.90XA) Active confirmed Problem High risk drug monitoring 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 (128425546) 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) Active confirmed Problem Hysterectomy (054175863) Acquired absence of both cervix and uterus (Z90.710) 2019 Active confirmed February 27, 2020 [facility]: Benign Ovarian cysts, Total lap hyst, bilateral sa;pingo-oopho rectomy, 6 week uterus, complex ovarian mass on RT Specimens: uterus, cervix, bilateral Fallopian tubes and ovariesq Problem Cardiac pacemaker in situ (191342733) Presence of cardiac pacemaker (Z95.0) Active confirmed Problem Artificial knee joint present (226552399728) Presence of unspecified artificial knee joint (Z96.659) Active confirmed Problem Dependence on wheelchair (995525509) Dependence on wheelchair (Z99.3) Active confirmed Problem Body mass index 20-24 - normal (180419285) Body mass index [BMI] 20.0-20.9, adult (Z68.20) Active confirmed Problem Cocaine abuse (85625888) Cocaine abuse, uncomplicated (F14.10) Active confirmed Problem Non-toxic multinodular goiter (46857940) 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) Inactive confirmed Problem Tobacco user (205271079) Nicotine dependence, cigarettes, uncomplicated (F17.210) Inactive confirmed Problem Opioid abuse (6592568) Opioid abuse, uncomplicated (F11.10) Remission phase confirmed Problem Drug-induced constipation (56343078) Drug induced constipation (K59.03) Problem resolved confirmed Problem Body mass index 30+ - obesity (873201382) Body mass index [BMI] 30.0-30.9, adult (Z68.30) Problem resolved confirmed Vital Signs Temperature 97.3 degrees Fahrenheit 01/06/2025 Blood pressure diastolic 70 01/06/2025 Oximetry 97 01/06/2025 Height 71 in 01/06/2025 Blood pressure systolic 107 01/06/2025 Weight 163.8 lbs 01/06/2025 BMI 22.84 kg/m2 01/06/2025 Encounters Encounter Location Date Provider Diagnosis [address] [id number] 01/11/2025 Laila Molina Bipolar disorder, current episode depressed, moderate F31.32 ; Cocaine abuse with intoxication, uncomplicated F14.120 ; Opioid abuse, uncomplicated F11.10 ; Insomnia, unspecified G47.00 ; Post-traumatic stress disorder, chronic F43.12 ; Epilepsy, unspecified, not intractable, without status epilepticus G40.909 ; Anxiety disorder, unspecified F41.9 ; Presence of cardiac pacemaker Z95.0 and Chronic pain syndrome G89.[address] [place] [id number] 02/05/2024 Eva Lantigua Encounter for screening for COVID-19 Z11.52 ; Qualitative platelet defects D69.1 ; Hypotension due to drugs I95.2 ; Nicotine dependence, unspecified, uncomplicated F17.200 ; Acquired absence of both cervix and uterus Z90.710 and Epilepsy, unspecified, not intractable, without status epilepticus G40.[address] [id number] 02/12/2024 Eva Lantigua Encounter for screening for COVID-19 Z11.52 ; Sprain of unspecified ligament of left ankle, initial encounter S93.402A ; Presence of cardiac pacemaker Z95.0 ; Nicotine dependence, unspecified, uncomplicated F17.200 and Bipolar disorder, unspecified F31.[address] [id number] 02/12/2024 Laila Molina Bipolar disorder, current episode depressed, mild F31.31 ; Insomnia, unspecified G47.00 ; Post-traumatic stress disorder, chronic F43.12 ; Epilepsy, unspecified, not intractable, without status epilepticus G40.909 ; Anxiety disorder, unspecified F41.9 ; Presence of cardiac pacemaker Z95.0 ; Opioid abuse, uncomplicated F11.10 and Encounter for screening for COVID-19 Z11.52 [facility] [address] [place] [id number] 03/18/2024 Laila Molina Bipolar disorder, current episode depressed, mild F31.31 ; Insomnia, unspecified G47.00 ; Post-traumatic stress disorder, chronic F43.12 ; Epilepsy, unspecified, not intractable, without status epilepticus G40.909 ; Anxiety disorder, unspecified F41.9 ; Presence of cardiac pacemaker Z95.0 ; Opioid abuse, uncomplicated F11.10 ; Chronic pain syndrome G89.4 and Encounter for screening for COVID-[address] [id number] 06/10/2024 Nursing [facility] Encounter for screening, unspecified Z13.[address] [place] [id number] 06/14/2024 Eva Lantigua Encounter for screening for COVID-19 Z11.52 ; Osteoarthritis of knee, unspecified M17.9 and Opioid abuse, uncomplicated F11.[address] [place] [id number] 06/14/2024 Laila Molina Bipolar disorder, current episode [...] Encounter for screening for COVID-[address] [place] [id number] 06/30/2024 Laila Molina Cocaine abuse with intoxication, [...] COVID-19 Z11.52 and Chronic pain syndrome G89.4 [facility] [address] [facility] [place] [place] [id number] 07/21/2024 Laila Molina Cocaine abuse with intoxication, [...] Encounter for screening for COVID-[address] [place] [id number] 08/19/2024 Laila Molina Cocaine abuse with intoxication, [...] Encounter for screening for COVID-[address] [place] [id number] 08/26/2024 Eva Lantigua Encounter for screening for COVID-19 Z11.52 ; Osteoarthritis of knee, unspecified M17.9 ; Chronic pain syndrome G89.4 ; Mild intermittent asthma, uncomplicated J45.20 ; Cocaine abuse, uncomplicated F14.10 ; Dependence on wheelchair Z99.3 ; 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 Z79.891 ; Influenza due to identified novel influenza A virus with other respiratory manifestations J09.X2 and Urinary tract infection, site not specified N39.[address] [id number] 09/16/2024 Eva Lantigua Encounter for screening for COVID-19 Z11.52 ; Cocaine abuse, uncomplicated F14.10 ; Chronic pain syndrome G89.4 ; Epilepsy, unspecified, not intractable, without status epilepticus G40.909 ; Osteoarthritis of knee, unspecified M17.9 ; Presence of unspecified artificial knee joint Z96.659 ; Bipolar disorder, current episode depressed, moderate F31.32 and Chronic sinusitis, unspecified J32.[address] [id number] 09/16/2024 Laila Molina Bipolar disorder, current episode [...] and Encounter for screening for COVID-[address] [id number] 12/07/2024 Laila Molina Bipolar disorder, current episode depressed, moderate F31.32 ; Cocaine abuse with intoxication, uncomplicated F14.120 ; Opioid abuse, uncomplicated F11.10 ; Insomnia, unspecified G47.00 ; Post-traumatic stress disorder, chronic F43.12 ; Epilepsy, unspecified, not intractable, without status epilepticus G40.909 ; Anxiety disorder, unspecified F41.9 ; Presence of cardiac pacemaker Z95.0 ; Chronic pain syndrome G89.4 and Encounter for screening for COVID-[address] [id number] 01/06/2025 Eva Lantigua Encounter for screening for COVID-19 Z11.52 ; Chronic pain syndrome G89.4 ; alf (current) use of opiate analgesic Z79.891 ; [...] Z95.0 and Mild intermittent asthma, uncomplicated J45.[address] [id number] 01/11/2025 Eva Lantigua [facility] [address] [place], [place] [id number] 02/01/2024 Eva Balder Chronic pain syndrom e G89.4 [address] [place], [place] [id number] 02/05/2024 Eva Balder [address] [id number] 02/08/2024 Eva Balder [address] [id number] 02/13/2024 Eva Balder [address] [id number] 02/18/2024 Eva Balder Chronic pain syndrom e G89.[address] [id number] 03/03/2024 Eva Balder Chronic pain syndrom e G89.[address] [id number] 03/17/2024 Eva Balder Chronic pain syndrom e G89.[address] [id number] 03/17/2024 Eva Balder [address] [id number] 03/31/2024 Eva Balder Chronic pain syndrom e G89.[address] [id number] 04/15/2024 Eva Balder Chronic pain syndrom e G89.[address] [id number] 04/15/2024 Eva Balder [address] [id number] 04/26/2024 Eva Balder Chronic pain syndrom e G89.[address] [id number] 04/29/2024 Eva Balder [address] [id number] 05/06/2024 [facility] [address] [place] [id number] 05/09/[address]ozader [address] [id number] 05/12/2024 Eva Balder Chronic pain syndrom e G89.[address] [id number] 05/18/[address] [id number] 05/20/[address]jider [address] [id number] 06/07/2024 Eva Balder Chronic pain syndrom e G89.4 and Prediabetes R73.[address] [id number] 06/10/2024 Eva Lantigua Bipolar disorder, unspecified F31.[address] [id number] 06/24/2024 Eva Lantigua Insomnia, unspecifie d G47.00 ; Cocaine abuse, uncomplicated F14.10 and Dorsalgia, unspecified M54.[address] [id number] 07/04/2024 Eva Balder Chronic pain syndrom e G89.[address] [id number] 07/07/2024 Eva Lantigua [address] [id number] 07/20/2024 Eva Balder Chronic pain syndrom e G89.[address] [id number] 07/26/[address] Mendozader [address] [id number] 08/04/2024 Eva Balder Chronic pain syndrom e G89.4 and Encounter for screening for COVID-19 Z11.[address] [id number] 08/18/2024 Eva Balder Chronic pain syndrom e G89.[address] [id number] 08/26/[address]ader [address] [id number] 09/01/2024 Eva Balder Chronic pain syndrom e G89.[address] [id number] 09/02/2024 Eva Mendozader [address] [id number] 09/16/2024 Eva Mendozader [address] [id number] 09/26/2024 Eva Lantigua Cocaine abuse with intoxication, uncomplicated F14.120 and Chronic pain syndrome G89.[address] [id number] 09/28/2024 [address]antigua [address] [id number] 10/06/2024 Eva Lantigua [address] [id number] 10/13/2024 Eva Lantigua Chronic pain syndrom e G89.[address] [id number] 10/26/2024 Eva Lantigua Chronic pain syndrom e G89.[address] [id number] 11/04/2024 Eva Lantigua [address] [id number] 11/08/2024 Eva Lantigua Encounter for screening for COVID-19 Z11.[address] [id number] 11/08/2024 Eva Lantigua [address] [id number] 11/09/2024 Eva Lantigua [address] [id number] 11/09/2024 Eva Lantigua [address] [id number] 11/22/2024 Eva Lantigua [address] [id number] 11/30/2024 Eva Lantigua [address] [id number] 12/13/2024 Eva Lantigua [address] [id number] 12/13/2024 Eva Lantigua Chronic pain syndrom e G89.[address] [id number] 12/13/2024 Eva Lantigua Chronic pain syndrom e G89.[address] [id number] 12/23/2024 Eva Lantigua [address] [id number] 12/26/2024 Eva Lantigua [address] [id number] 12/26/2024 Eva Lantigua Chronic pain syndrom e G89.4 and Bipolar disorder, unspecified F31.[address] [id number] 01/02/2025 Eva Lantigua [address] [id number] 01/04/2025 Eva Lantigua Chronic pain syndrom e [...] to proceed with prescribed treatment. 1. [employer] reviewed: see exam 2. Medications: Depakote prescribed by neurologist. Clt aware also helpful for mood stabilization in Bipolar D/O. Cont. Duloxteine to 30 mg BID. Started on Abilify 2 mg while hsopitalized at [facility]. 3. Psychotherapy: Has new intake scheduled with Violetta Phan [facility] 12/26/24 changed to phone appt. 4. Labs/Procedures: Has f/u with Dr. Lantigua 01/06/25, gregorio aware it will be in person appt. [...] is frcature but she certainyl ois at [facility]. To get xray at [facility] todaya nd asked for wet read to [...] to proceed with prescribed treatment. 1. [employer] reviewed: see exam 2. Medications: cont Depakote at current dose. Being prescribed by neurologist. Clt aware also helpful for mood stabilization in Bipolar D/O. Note per clt topamax and lamictal were stopped by neurologist. Cont Franciscombalholley has RF from . 3. Psychotherapy: she [...] allowed time for clarifying questions. Engaged with [facility] team for care 03/18/2024 Bipolar disorder, current episode depressed, mild (ICD-10 - F31.31) Reviewed hx of psychiatric illness, treatment received and medication trials with client. Discussed current medications as to indications, actions and side effects. Reviewed risks benefits of treatment versus non treatment. Medication education provided. Patient given opportunity to ask questions. Patient gives informed consent to proceed with prescribed treatment. 1. [place] [employer] reviewed: see exam 2. Medications: cont Depakote at current dose. Being prescribed by neurologist. Clt aware also helpful for mood stabilization in Bipolar D/O. Cont Kindra has RF from . 3. Psychotherapy: [...] allowed time for clarifying questions. Engaged with [facility] team for care 06/10/2024 Encounter for screening, [...] to proceed with prescribed treatment. 1. [place] [employer] reviewed: see exam 2. Medications: Depakote prescribed by neurologist. Clt aware also helpful for mood stabilization in Bipolar D/O. Depakote level wnl. 3. Psychotherapy: Per clt getting therapy through [facility]. 4. Labs/Procedures: as above 5. 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 aware of triggers and actively working on reducing them. Started back on baclofen 5 mg TID, she was started on medication for cocaine craving while at [facility] and asked to continue medication. Craving [...] to proceed with prescribed treatment. 1. [place] [employer]ERSON reviewed: see exam 2. Medications: Depakote prescribed by neurologist. Clt aware also helpful for mood stabilization in Bipolar D/O. Increase in Duloxteine to 30 mg BID per clt request. Depakote level wnl. 3. Psychotherapy: Per clt getting therapy through [facility]. 4. Labs/Procedures: as above 5. 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 aware of triggers and actively working on reducing them. Started back on baclofen 5 mg TID, she was started on medication for cocaine craving while at [facility] and asked to continue medication. Craving somewhat improved. Topamax prescribed by neuro in past for seizures was D/C'd by neuro as caused headaches. 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 aware of triggers and actively working on reducing them. Started back on baclofen 5 mg TID, she was started on medication for cocaine craving while at [facility] and asked to continue medication. Craving somewhat improved. Topamax prescribed by neuro in past for seizures was D/C'd by neuro as caused headaches. 08/26/2024 Osteoarthritis of knee, unspecified (ICD-10 - M17.9) See HPI. Itofelicia her pre-op has to [facility] 30 [...] to proceed with prescribed treatment. 1. [place] [employer] reviewed: see exam 2. Medications: Depakote prescribed by neurologist. Clt aware also helpful for mood stabilization in Bipolar D/O. Cont. Duloxteine to 30 mg BID per clt request. Depakote level wnl. 3. Psychotherapy: Per clt getting therapy through [facility]. 4. Labs/Procedures: no new labs for [...] verbalizes agreement, allowed time for clarifying questions. [facility] Crisis called. Clt stayed at clinic [...] to proceed with prescribed treatment. 1. [place] [employer] SAL[employer]ERSON reviewed: see exam 2. Medications: Depakote prescribed by neurologist. Clt aware also helpful for mood stabilization in Bipolar D/O. Cont. Duloxteine to 30 mg BID. Started on Abilify 2 mg while hsopitalized at [facility]. 3. Psychotherapy: Has new intake scheduled with Violetta Phan [facility] 12/26/24 changed to phone appt. 4. Labs/Procedures: [...] oopiate agreement done. Stay in 15 oxy q4s-qfl understands. Can boost at surgeryif needed and [...] (ICD-10 - G89.4) Followed by endocrine [facility] to renew her opoiate. D/c [...] respite bed. Clt continues to work with agile coach, getting counsaling at [facility] and at [facility]. aware of triggers and actively working on reducing them. Started back on baclofen 5 mg TID, she was started on medication for cocaine craving while at [facility] and asked to continue medication. Craving [...] go to residential program after she leaves [facility] [place] in [facility]. 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 06/07/2024 Prediabetes (ICD-10 - R73.03) 06/24/2024 Dorsalgia, [...] (ICD-10 - F43.12) Mirtazapine was stopped by rubble placer. Encouraged to discuss with therapist. 03/18/2024 Post-traumatic stress disorder, chronic (ICD-10 - F43.12) Working on getting new therapist. 06/14/2024 Insomnia, unspecified (ICD-10 - G47.00) Dose increased at [facility]. She stopped Seroquel at [facility] prescribed [...] to proceed with prescribed treatment. 1. [place] [employer] reviewed: see exam 2. Medications: Depakote prescribed [...] unspecified (ICD-10 - G47.00) Dose increased at [facility]. She stopped Seroquel at [facility] prescribed by [facility] on her own due to s/e. [...] to proceed with prescribed treatment. 1. [place] [employer] reviewed: see exam 2. Medications: Depakote prescribed by neurologist. Clt aware also helpful for mood stabilization in Bipolar D/O. Cont. Duloxteine to 30 mg BID per clt request. Depakote level wnl. 3. Psychotherapy: Per clt getting therapy through [facility]. 4. Labs/Procedures: no new labs for [...] status epilepticus (ICD-10 - G40.909) Neurologist- Dr. [facility] Noseizures at present 09/16/2024 Opioid abuse, uncomplicated (ICD-10 - F11.10) 12/07/2024 Opioid abuse, uncomplicated (ICD-10 - F11.10) Per clt on 8 mg of methadone, has been tapering down pending ortho surgery. 01/06/2025 Bipolar disorder, current episode depressed, moderate (ICD-10 - F31.32) She herself notpetey atkinson is chrinically somewhat mnaic. We are incresing [...] status epilepticus (ICD-10 - G40.909) [facility]. Per clt no seizure activity since 07/202303/18/2024 Epilepsy, unspecified, not intractable, without status epilepticus (ICD-10 - G40.909) [facility]. Per clt no seizure activity since 07/202306/14/2024 Post-traumatic stress disorder, chronic (ICD-10 - F43.12) Encouraged to work on with therapist. 06/30/2024 Insomnia, unspecified (ICD-10 - G47.00) Dose increased at [facility]. She stopped Seroquel at [facility] prescribed by [facility] on her own due to s/e. 07/21/2024 Post-traumatic stress disorder, chronic (ICD-10 - F43.12) Encouraged to work on with therapist. 08/19/2024 Insomnia, unspecified (ICD-10 - G47.00) Dose increased at [facility]. Doing well on this dose. 08/26/2024 Cocaine abuse, uncomplicated (ICD-10 - F14.10) Doing well at present. Last use last year 09/16/2024 Osteoarthritis of knee, unspecified (ICD-10 - M17.9) I hope she can se eortho. will be hard to get through surgery 09/16/2024 Insomnia, unspecified (ICD-10 - G47.00) Dose increased at [facility]. Doing well on this dose. 12/07/2024 Insomnia, unspecified (ICD-10 - G47.00) 01/06/2025 Thyrotoxicosis, unspecified without thyrotoxic crisis or storm (ICD-10 - E05.90) with [facility] Has been stable 01/11/2025 Post-traumatic stress disorder, chronic (ICD-10 - F43.12) Receiving services at [facility] and also has appt with ADALBERTO Phan at [facility]. 02/05/2024 Epilepsy, unspecified, not intractable, without status epilepticus (ICD-10 - G40.909) Neurologist- [facility] seiuzure free over 6 mos daniel brandt. Sees neuro and will stay on meds at present 02/12/2024 Anxiety disorder, unspecified (ICD-10 - F41.9) Helpful for anxiety control. 03/18/2024 Anxiety disorder, unspecified (ICD-10 - F41.9) Helpful for anxiety control. 06/14/2024 Epilepsy, unspecified, not intractable, without status epilepticus (ICD-10 - G40.909) [facility] Per clt no seizure activity since 07/2023. Valproic Acid level wnl see above. 06/30/2024 Post-traumatic stress disorder, chronic (ICD-10 - F43.12) Encouraged to work on with therapist. 07/21/2024 Epilepsy, unspecified, not intractable, without status epilepticus (ICD-10 - G40.909) Neurologist- [facility] Following with neurologist. Per clt no seizure activity since 07/2023.Las t Valproic acid level wnl. See labs. 08/19/2024 Post-traumatic stress disorder, chronic (ICD-10 - F43.12) Encouraged to work on with therapist. 08/26/2024 Dependence on wheelchair (ICD-10 - Z99.3) Daisy contact [facility] to get us equipment needs list. Cecy-nurse left her a message 09/16/2024 Presence of unspecified artificial knee joint (ICD-10 - Z96.659) 09/16/2024 Post-traumatic stress disorder, chronic (ICD-10 - F43.12) Encouraged to work on with therapist. 12/07/2024 Post-traumatic stress disorder, chronic (ICD-10 - F43.12) Receiving services at [facility] and also has appt with ADALBERTO Phan at [facility]. 01/06/2025 Encounter for screening for malignant neoplasm of colon (ICD-10 - Z12.11) agrees to FIT 01/11/2025 Epilepsy, unspecified, not intractable, without status epilepticus (ICD-10 - G40.909) [facility]. Keppra was increased when [...] status epilepticus (ICD-10 - G40.909) [facility]. Per clt no seizure activity since 07/2023. Valproic Acid level wnl see above. 07/21/2024 Anxiety disorder, unspecified (ICD-10 - F41.9) Helpful for anxiety control. 08/19/2024 Epilepsy, unspecified, not intractable, without status epilepticus (ICD-10 - G40.909) [facility]. Per clt no seizure activity since 07/2023.Las t Valproic acid level wnl. See labs. 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 Has controlled this pretty well 09/16/2024 Bipolar disorder, current episode depressed, moderate (ICD-10 - F31.32) seeing today 09/16/2024 Epilepsy, unspecified, not intractable, without status epilepticus (ICD-10 - G40.909) [facility]. Per clt no seizure activity since 07/2023.Las t Valproic acid level wnl. See labs. 12/07/2024 Epilepsy, unspecified, not intractable, without status epilepticus (ICD-10 - G40.909) [facility]. Keppra was increased when [...] status epilepticus (ICD-10 - G40.909) [facility]- [facility] Says she has alot of petit mal. Has been seen at [facility]. Checkign trough depakote level 01/11/2025 Presence of [...] IH + cocaine. Statretd to work with agile coach, getting counsleing [facility] and at [facility]. aware of triggers and actively working [...] 10/03/2019 URINE CULTURE 09/14/2019 [facility] 09/03/2022 [facility] 09/12/2021 HEPATITIS A,B,C PROFILE 09/03/2022 Future Test Test Name Order Date VITAMIN D, 25-HYDROXY 09/12/2021 Next Appt Details Provider Name:Laila Molina, 01/26/2025 09:30:00 AM, [address] [place] [address] FOR [facility], [place], [place], [phone], Provider Name:Eva Grzegorz, 02/24/2025 11:20:00 AM, [address] [place] [address], [place], [place], [id number], Insurance Providers Payer Name Payer Address Payer Phone Subscriber Number Group Number Insured Name Patient Relationship to Insured Coverage Start Date Coverage End Date [facility] [address] [place] [phone] [id number] [id number] Ld Mosley Self - patient is the insured 0 [place] Medicare Part [place] [employer] [address] [place] [address] [id number] Ld Mosley Self - patient is the [...] Surgical History Surgery Date(Month/Year) Pacemaker Insertion [place] [facility] [place]/25/2023 Right knee menisceal repair surgery 05/14 023 Left knee laproscopic tendon repair kay nstruction 04/2023 Total Laparoscopic Hysterectomy with Cedrick ateral Salpingo Oophorectomy 02/17/20 Hospitalization History Reason Date(Month/Year) [facility] 05/2024 Pacemaker [facility] 09/2023 OD, Section 35 and then to [facility] 07/2022 [facility] ~ Rt ovary mass [facility] operative no te-scanning Benign pathology 02/17/2020 [facility] ER, vomiting with nausea, dc to home 08/12/19 [facility] ER, acute serous right o titis media; acute serous left otitis media. dc to home 05/23/19 section 02/04/19 [facility] Detox and psych
--- OUTSIDE RECORDS SUMMARY | 2025-01-17 08:07 | XMS_ITS | Encounter Summary ---
Author Organization [facility] Address [address] [place] [address] Care Team Providers Care Business Representative Name Role Phone Physician, Pcp Unknown Primary Care Provider Olga vailable Encounter Details Date Type Department Care Team (Late st Contact Info) Description 06/10/2024 Lab Requisition [facility] - Main Lab [address] [facility], [facility] [place] [address] Magen Lantigua MD [address] [place] [address] Prediabetes; Chronic pain syndrome Social History Tobacco [...] SST tube (06/10/2024 1:30 PM EST) Pathologist [facility] Extra Tube Hold for add-ons. 06/10/2024 7:01 PM EST [facility] Comment:Auto resulted. Blood Venous blood specimen / Unknown 06/10/2024 1:30 PM EST 06/10/2024 5:16 PM EST Magen Lantigua MD LAB BLOOD ORDERABLES Final Re sult Performing Organization Address City/[facility]/ZIP Co de Phone Number [facility] [address] [place] [address], [place] [phone] * (ABNORMAL) Glucose, random (06/10/2024 1:30 PM EST) [facility] Glucose 118(H) 70 - 100 mg/dL LAB CHEMISTRY METHOD 06/10/2024 5:33 PM EST [facility] Blood Venous blood specimen / Unknown 06/10/2024 1:30 PM EST 06/10/2024 5:16 PM EST Magen Lantigua MD LAB BLOOD ORDERABLES Final Re sult Performing Organization Address [facility]/ZIP Co de Phone Number [facility] [address] [place] [address], [place] [phone] * Lipid panel with reflex to direct LDL (06/10/2024 1:30 PM EST) [facility] Cholesterol 192 0 - 200 mg/dL [...] ORDERABLES Final Re sult Performing Organization Address [facility]/ZIP Co de Phone Number [facility] [address] [place] [address], [place] [phone] * Hemoglobin A1c (06/10/2024 1:30 PM EST) Hemoglobin A1C 4.8 <6.5 % LAB CHEMISTRY METHOD 06/12/2024 11:38 AM EST [facility] Mean Bld Glu Estim. 91 mg/dL LAB CHEMISTRY METHOD 06/12/2024 11:38 AM [facility] Blood Venous blood specimen / Unknown 06/10/2024 1:30 PM EST 06/10/2024 5:16 PM EST Magen Lantigua MD LAB BLOOD ORDERABLES Final Re sult [facility] [address] [place] [address], [place] [phone] * Valproic acid level, total (06/10/2024 1:30 PM EST) Valproic Acid, Total 72 50 - 100 mcg/mL LAB CHEMISTRY METHOD 06/10/2024 5:33 PM EST [facility] Blood Venous blood specimen / Unknown 06/10/2024 1:30 PM EST 06/10/2024 5:16 PM EST us Magen Lantigua MD LAB BLOOD ORDERABLES Final Re sult [facility] [address] [place] [address], documented in this encounter Visit Diagnoses Diagnosis Prediabetes Other abnormal glucose Chronic pain syndrome documented in this encounter Care Teams Business Representative Relationship Specialty Start Date End Date Physician, Pcp Unknown PCP - General 01/06/25 documented as of this encounter
--- OUTSIDE RECORDS SUMMARY | 2025-01-17 08:08 | XMS_ITS | Patient Health Record ---
Author Organization [facility] Address [address] [place] [address] Care Team Providers Care Belt Sander Stone Name Role Phone Kenn Mujica Primary Care Provider [phone] Kenn Mujica MD Unavailable Unavailable Allergies Allergen [...] W/U Status Risk Notes Problem Impacted cerumen (19694551) Impacted cerumen (380.4) Active confirmed Problem Asthma (005371415) Asthma (493.90) Active confi rmed Problem Back pain (473011237) Back pain (724.5) Active confirmed Problem Smoking (76253382) Smoking (305.1) Active confi rmed Problem Degeneration of intervertebral disc (12903109) Degenerative disk disease (722.6) Active confirmed Problem Otalgia (461070697) Otalgia (388.70) Active confirmed Plan Of Treatment [...] B [address] [place] [phone] [id number] MelanyLd griggs Self - patient is the insured Medicaid [address] [place] [address] [phone] [id number] Ld Mosley Self - patient is the insured Medicaid [facility] [address] [place] [address] [id number] NOT MAGGIE Ld Mosley Self - patient is the insured Medical (General) History Medical History History ICD Code asthma Surgical History Surgery Date(Month/Year) tonsillectomy bilateral tubes septoplasty
== END 2025-01-16 08:04 | disposition home or self-care (01) ==
LOC: HO.HOSX 08:03
PROVIDERS: Visit Provider Physician Assistant
DX: M17.0 Bilateral primary osteoarthritis of knee (principal)
CPT/HCPCS: 73562; 99212

== ENCOUNTER 2025-01-16 11:34 | Outpatient (AMB) | payer OTHER, SELFPAY ==
--- NOTE | 2025-01-16 11:40 | MHC.OFFVIS ---
Vital Signs 01/16/25 11:41 Height 5 ft 11 in Weight 165 lb BMI 23.0 Intake Visit Reasons: Newprob-chronic knee pain B/L -Second opinion Intake Note: Ld is a 49 year old female who presents as an established patient new problem visit to evaluate bilateral knee pain. Patient was previously seen for her right knee pain and was given a cortisone injection on 10/23/23. Patient reports last injection did not help at all. States her left knee causes her the most discomfort. No other recent treatment. Hx of bilateral knee surgeries at [facility] [place]. States being prescribed oxycodone for her back, ankle and knee pain. Allergies acetaminophen (From Vicodin) Allergy (Severe, Verified 01/16/25 11:52) Anaphylaxis hydrocodone (From Vicodin) Allergy (Severe, Verified 01/16/25 11:52) Anaphylaxis amoxicillin (AMOXICILLIN) Allergy (Intermediate, Verified 01/16/25 11:52) RASH Penicillins (PENICILLINS) Allergy (Intermediate, Verified 01/16/25 11:52) RASH topiramate (From Topamax) Adverse Reaction (Unknown, Verified 01/16/25 11:52) Unknown lamictal Adverse Reaction (Unknown, Uncoded 01/16/25 11:52) Unknown HPI HPI Newprob-chronic knee pain B/L -Second opinion: Details: 50-year-old female presents to the office today for bilateral knee pain. She had knee arthroscopies with [facility] in the past and was told she would need bilateral knee replacements. She states this was set up but was recently canceled. She states she has bilateral knee pain which is limiting her daily activities. She states the knees constantly give out. She is currently on methadone 4mg She had a pacemaker placed about a year ago She states the pacemaker is due to afib but she is not on anticoag She has a history of IV drug use. She states she has not actively used in 2 months. She states 2 months ago was a relapse. She has chronic opiate use with oxycodone 15 q6 hours which she states is due to her chronic back pain [facility] Medical History Fracture of medial malleolus, left, closed Closed left fibular fracture Osteoarthritis of knees, bilateral Bipolar I disorder Headache, migraine Cocaine use disorder Opioid use disorder, moderate, in early remission, on maintenance therapy, dependence Bipolar disorder with depression PTSD (post-traumatic stress disorder) Cardiac pacemaker in situ Opioid use disorder Seizure disorder Clavicle fracture Narcotic abuse Seizures Asthma COPD (chronic obstructive pulmonary disease) Surgical History History of ankle surgery (08/05/23) H/O right knee surgery H/O left knee surgery Social History Household Members: Family Household Members Other:: Mother, father, daughter Housing: House Do you presently have visiting nurse or other home services: No Unable to assess alcohol history related to: Unknown Alcohol intake: never Comment: n/a Patient Tobacco Use Status: Current everyday Tobacco user Tobacco use type: Cigarette Cigarettes Per Day: 6 e-Cigarette/Vaping Use: Currently Using Second Hand Smoke Exposure: No Substance Use Type: Crack/Cocaine Advance Directives Date on File: 09/29/23 service: No Sexual orientation: Straight/Heterosexual Review of Systems Const All systems reviewed & are unremarkable except as noted in HPI and below Physical Exam Vital Signs: BMI result Body Mass Index 23.0 Const General: cooperative and no acute distress Orientation/consciousness: patient oriented x3 Resp Effort & Inspection: normal respiratory effort and able to speak in complete sentences Cardio Peripheral pulses: Peripheral pulses 2+ throughout Neuro General: patient oriented x3 Extrem Other: Bilateral knees normal to inspection she has full range of motion with crepitus. Diffuse tenderness bilaterally. Calf supple and nontender neurovascularly intact. Results Reviewed Results Reviewed: X-rays of both knees obtained in the office today do show mild to moderate diffuse osteoarthritis. Assessment & Plan Assessment & Plan (1) Bilateral primary osteoarthritis of knee: Code(s): M17.0 - Bilateral primary osteoarthritis of knee Category: Medical Plan: I had a lengthy discussion with the patient and her mother about the process to proceed with total knee arthroplasty especially with a history of substance use. Given her age of 50, she is on the younger side to proceed with a knee replacement. I explained to her while it is possible to proceed at this age she needs to understand clear expectations going forward which may require a revision type surgery in 20-25 years. The patient did express understanding. I explained to the patient with a history of IV drug use there is an increased risk of infection if she continues to use. The patient was adamant about her abstinence. I explained to the patient's there will be a period of time she needs to be drug free before proceeding with a safe surgery. I explained to the patient if there is an infection in the joint and would require a 2 step procedure where we remove the prosthesis, placed an antibiotic spacer followed by another revision surgery usually 3-6 months after spacer. She did express understanding. I discussed with the patient and her mom the decision to proceed would be made by the surgeon himself. I encouraged her to meet with Dr. Vazquez to discuss this further especially with her history of IV drug use and also comorbidities of AFib with a pacemaker. She does express understanding and would like to meet with Dr. Vazquez himself as he has operated on her ankle in the past and she would like to discuss with him and ask him further questions about the procedure going forward. Arrangements were made for this appointment. Orders: Orders XR Knee Cedrick 3V 01/16/25 M25.561 - Pain in right knee, M25.562 - Pain in left knee Coding Level of Care Code Est Pt Level 4 (71086) Complex EM visit Add On G2211 Diagnoses Bilateral primary osteoarthritis of knee M17.0
[2025-01-16 11:41] VITALS: BMI 23.0
--- OUTSIDE RECORDS SUMMARY | 2025-01-16 12:28 | XMS_ITS | Encounter Summary ---
Author Organization [facility] Address [address] [place] [address] Care Team Providers Care Button Sawyer Name Role Phone Physician, Pcp Unknown Primary Care Provider Olga vailable Encounter Details Date Type Department Care Team (Late st Contact Info) Description 06/10/[address] [facility] Lab [address] [facility] [place] [address] Magen Lantigua MD [address] [place] [address] Prediabetes; Chronic pain syndrome Social History Tobacco [...] SST tube (06/10/2024 1:30 PM EST) Pathologist [facility] Extra Tube Hold for add-ons. 06/10/2024 7:01 PM EST [facility] Comment:Auto resulted. Blood Venous blood specimen / Unknown 06/10/2024 1:30 PM EST 06/10/2024 5:16 PM EST Magen Lantigua MD LAB BLOOD ORDERABLES Final Re sult Performing Organization Address City/[facility]/ZIP Co de Phone Number [facility] [address] [place] [address], [place] [phone] * (ABNORMAL) Glucose, random (06/10/2024 1:30 PM EST) [facility] Glucose 118(H) 70 - 100 mg/dL LAB CHEMISTRY METHOD 06/10/2024 5:33 PM EST [facility] Blood Venous blood specimen / Unknown 06/10/2024 1:30 PM EST 06/10/2024 5:16 PM EST Magen Lantigua MD LAB BLOOD ORDERABLES Final Re sult Performing Organization Address [facility]/ZIP Co de Phone Number [facility] [address] [place] [address], [place] [phone] * Lipid panel with reflex to direct LDL (06/10/2024 1:30 PM EST) [facility] Cholesterol 192 0 - 200 mg/dL LAB CHEMISTRY METHOD 06/10/2024 5:50 PM EST [facility] Triglycerides 61 0 - 150 mg/dL LAB CHEMISTRY METHOD 06/10/2024 5:50 PM EST [facility] HDL 91 >=40 mg/dL LAB CHEMISTRY METHOD 06/10/2024 5:50 PM EST [facility] LDL Calculated 89 0 - 100 mg/dL LAB CHEMISTRY METHOD 06/10/2024 5:50 PM EST [facility] VLDL Cholesterol Fabian 12.2 mg/dL LAB CHEMISTRY METHOD 06/10/2024 5:50 PM EST [facility] Non HDL Chol. (LDL+VLDL) 101 <145 mg/dL LAB CHEMISTRY METHOD 06/10/2024 5:50 PM EST [facility] Chol/HDL Ratio 2.1 0.0 - 4.4 LAB CHEMISTRY METHOD 06/10/2024 5:50 PM EST [facility] Blood Venous blood specimen / Unknown 06/10/2024 1:30 PM EST 06/10/2024 5:16 PM EST Magen Lantigua MD LAB BLOOD ORDERABLES Final Re sult Performing Organization Address [facility]/ZIP Co de Phone Number [facility] [address] [place] [address], [place] [phone] * Hemoglobin A1c (06/10/2024 1:30 PM EST) Hemoglobin A1C 4.8 <6.5 % LAB CHEMISTRY METHOD 06/12/2024 11:38 AM EST [facility] Mean Bld Glu Estim. 91 mg/dL LAB CHEMISTRY METHOD 06/12/2024 11:38 AM [facility] Blood Venous blood specimen / Unknown 06/10/2024 1:30 PM EST 06/10/2024 5:16 PM EST Magen Lantigua MD LAB BLOOD ORDERABLES Final Re sult [facility] [address] [place] [address], [place] [phone] * Valproic acid level, total (06/10/2024 1:30 PM EST) Valproic Acid, Total 72 50 - 100 mcg/mL LAB CHEMISTRY METHOD 06/10/2024 5:33 PM EST [facility] Blood Venous blood specimen / Unknown 06/10/2024 1:30 PM EST 06/10/2024 5:16 PM EST us Magen Lantigua MD LAB BLOOD ORDERABLES Final Re sult [facility] [address] [place] [address], documented in this encounter Visit Diagnoses Diagnosis Prediabetes Other abnormal glucose Chronic pain syndrome documented in this encounter Care Teams Button Sawyer Relationship Specialty Start Date End Date Physician, Pcp Unknown PCP - General 01/06/25 documented as of this encounter
--- OUTSIDE RECORDS SUMMARY | 2025-01-16 12:29 | XMS_ITS | Patient Health Record ---
Author Organization [facility] Address [address], [place] [id number] Care Team Providers Care Blemish Remover Name Role Phone Eva Lantigua Primary Care Provider [phone] Laila Molina Unavailable [phone] [facility], Nursing Unavailable [phone] Beverly Phan Unavailable [phone] Allergies Allergen (clinical drug ingredient) Drug/Non Drug Allergy documented on EMR Reaction Allergy Type Onset Date Status amoxicillin amoxicillin anaphylaxis Drug Allergy A ctive topiramate Topamax headache Drug Allergy Active lamotrigine LaMICtal unknown Drug Allergy Activ e Keflex itchy Drug Allergy Active Results Component Value Reference Range Notes CBC WITH AUTO DIFF Reviewed date:02/13/2024 12:44:56 PM Interpretation:Normal Performing Lab: Notes/Report: Original Ordering Provider: EVA LANTIGUA MD [employer], a member of [address] [address] Adult Remedial Education Instructor - Gracie Glass MD WBC 3.0 4.8-10.8 x10-3/uL RBC 4.2 3.8-4.8 x10-6/uL HEMOGLOBIN 12.2 11.5-16.0 g/dL HEMATOCRIT 38.7 35-47 % MCV 91.5 79-98 fL MCH 28.8 27-32 pg MCHC 31.5 32-37 g/dL RDW 15.8 11-15 % PLT COUNT 209 130-400 x10-3/uL MEAN PLATELET VOLUME 11.1 7-11 fL NRBC % AUTO 0.0 <1 % NEUT % 39.3 LYMPH % 46.8 MONO % 11.6 EOS % 2.0 BASO % 0.3 IMMATURE GRANULOCYTES % 0.0 NRBC # AUTO 0.00 <0.1 x10-3/uL ABSOLUTE NEUT 1.18 1.5-7.0 x10-3/uL LYMPH # 1.41 1-5.0 x10-3/uL MONO # 0.35 0.2-1.0 x10-3/uL EOS # 0.06 0-0.5 x10-3/uL BASO # 0.01 0-0.2 x10-3/uL IMMATURE GRANULOCYTES # 0.00 0-0.03 x10-3/uL CR Ankle LT Min 3 View Reviewed date:02/16/2024 05:48:46 PM Interpretation:Negative Performing Lab: Notes/Report: Negative CR Foot LT Min 3 Views Reviewed date:02/16/2024 05:49:02 PM Interpretation:Negative Performing Lab: Notes/Report: Negative Drug Toxicology Reviewed date:06/14/2024 02:32:19 PM Interpretation:Pos for opiates, methadone, oxy, and cocaine. Performing Lab: Notes/Report: Pos for opiates, methadone, oxy, and cocaine. LIPID PANEL WITH REFLEX TO D IRECT LDL Reviewed date:06/11/2024 08:43:28 AM Interpretation:Normal Performing Lab: Notes/Report: Cholesterol 192 0-200 mg/dL Triglycerides 61 0-150 mg/dL HDL 91 >=40 mg/dL LDL Calculated 89 0-100 mg/dL VLDL Cholesterol Fabian 12.2 Non HDL Chol. (LDL+VLDL) 101 <145 mg/dL Chol/HDL Ratio 2.1 0.0-4.4 HEMOGLOBIN A1C Reviewed date:06/12/2024 12:41:05 PM Interpretation:Normal Performing Lab: Notes/Report: Hemoglobin A1C 4.8 <6.5 % Mean Bld Glu Estim. 91 VALPROIC ACID LEVEL, TOTAL Reviewed date:06/11/2024 08:43:02 AM Interpretation:72 Performing Lab: Notes/Report: Valproic Acid, Total 72 50-100 mcg/mL GLUCOSE, RANDOM Reviewed date:06/11/2024 08:43:15 AM Interpretation:Normal Performing Lab: Notes/Report: Glucose 118 70-100 mg/dL CBC Reviewed date:12/13/2024 11:32:17 PM Interpretation:cytopenias Performing Lab: Notes/Report: cytopenias HEMATOCRIT 32 HEMOGLOBIN 10.9 MCV 87 PLT COUNT 196 WBC 4.3 COMPREHENSIVE METABOLIC PANE L Reviewed date:12/13/2024 11:34:28 PM Interpretation:Normal Performing Lab: Notes/Report: Normal ALBUMIN 3.5 ALK PHOS 66 SGPT 25 SGOT 24 BILI,TOTAL 0.6 BUN 16 CALCIUM 9.0 CHLORIDE 107 CO2 24 CREAT 0.7 GLUCOSE 75 POTASSIUM 3.8 SODIUM 140 TOTAL PROTEIN 5.7 HEMOGLOBIN A1C Reviewed date:12/13/2024 11:35:33 PM Interpretation:Normal Performing Lab: Notes/Report: Normal Hemoglobin A1C 5.2 LIPID PANEL Reviewed date:12/13/2024 11:36:54 PM Interpretation:Normal Performing Lab: Notes/Report: Normal TRIGLYCERIDES 50 CHOLESTEROL, TOTAL 160 HDL CHOLESTEROL 69 LDL-CHOLESTEROL 61 NON HDL CHOLESTEROL 79 TSH CASCADE Reviewed date:12/13/2024 11:38:04 PM Interpretation:Abnormal Performing Lab: Notes/Report: Abnormal TSH CASCADE 0.09 DRUG ABUSE SCREEN 8A PANEL, URINE Reviewed date:01/06/2025 10:23:57 PM Interpretation:Positive Performing Lab: Notes/Report: Assay cutoffs: Amphetamines 1000 ng/mL Barbiturates 200 ng/mL Benzodiazepines 200 ng/mL Cocaine 300 ng/mL Fentanyl 1 ng/mL Opiates 300 ng/mL Oxycodone 100 ng/mL THC 50 ng/mL Semi-quantitative assay for screening purposes only. Unconfirmed screening result should not be used for non-medical purposes. *ALTERNATE METHOD CONFIRMATION DONE UPON REQUEST ONLY* Amphetamine Screen, Ur Negative Negative Certa in OTC medications containing ephedrine, phenylephrine, pseudoephedrine and phenylpropanolamine can cause false positive results. Barbiturate Screen, Ur Negative Negative Benzodiazepine Screen, Ur Negative Negative Cocaine Screen, Ur Negative Negative Opiate Screen, Ur Positive Negative Cannabinoid (THC) Screen, Ur Negative Negative Specimens from patie nts taking pantoprazole sodium (Protonix) have been shown to produce false positive results. Oxycodone Screen, Ur Positive Negative Fentanyl, Ur Negative Negative Reason For Referral Reason Marilia [facility], [address] [place] [address] P: [phone] F: [phone] [place] Shower Mat #1 Cane #1 Hand-held shower head #1 Shower Chair #1 Diagnosis 1 Unspecified fracture of unspecified femur, initial encounter for closed fracture (S72.90XA) Diagnosis 2 Osteoarthritis of kn ee, unspecified (M17.9) Referral Organization [facility] Referring Provider First Name Eva Referring Provider Last Name Grzegorz Referring Provider Speciality Internal edicine Referred Provider Fabricio Ross Medical Equipment General Notes Angela Martinez 02:45:37 PM > faxed to [facility] 10/17/2024 03:22:34 PM > pt. received Referral Priority Routine Reason [facility], [address] [place] [address] P: [phone] F: [phone] Disposable incontinence bed pad 1/day #30 with 11 refills Pull up Briefs size Large, 1/day #30 with 11 refills Diagnosis 1 Incontinence without sensory awareness (N39.42) Diagnosis 2 Nocturia (R35.1) Referral Organization [facility] Referring Provider First Name Eva Referring Provider Last Name Grzegorz Referring Provider [facility] Referred Provider Fabricio Ross ReplySend General Notes Angela Martinez 02:48:48 PM > Faxed to [facility] 10/17/2024 03:22:46 PM > pt. received Referral Priority Routine Medications Medication SIG (Take, Route, Frequency, Duration) Notes Start Date End Date Status DULoxetine Hydrochloride 30 mg 1 cap(s) orally 2 times a day for 30 days Unknown Trelegy Ellipta 200 mcg-62.5 mcg-25 mcg/inh INHALE 1 PUFF BY MOUTH DAILY for 30 Unknown OxyCODONE Hydrochloride 15 mg 1 tab(s) orally every 6 hours for 15 days for 01/06/25 Partial Fill upon Patient Request 01/04/2025 Unknown Rhinocort Allergy 32 mcg/inh 1 spray(s) in each nostril once a day for 30 days 09/16/2024 Unknown traZODone 150 mg one tablet orally nightly at bedtime for 28 days Unknown ARIPiprazole 2 mg 1 tab(s) orally daily at bedtime for 30 days [place] [facility] [place] Unknown baclofen 5 mg 1 tab(s) orally twice a day for 30 days 01/11/2025 Unknown metoprolol 50 mg 1 tab(s) orally once a day in evening Unknown Ondansetron Hydrochloride 4 mg 1 tab(s) orally every 6 hours as needed for nausea for 14 days Unknown Narcan 4 mg/0.1 mL 4 mg intranasally once 03/24/2019 Unknown Keppra 750 mg 1 tab(s) orally 2 times a day prescribed by neuro Unknown Diclofenac Sodium Topical 1% as directed apply to knee 4 times a day for 15 days Unknown methadone 10 mg/mL 5mg orally daily per clt on 8 mg a day Unknown mometasone 100 mcg/inh as directed inhaled 2 times a day for 30 days Unknown celecoxib 200 mg 1 cap(s) orally twice a day for 30 days reopalces indomethacin diue to insuranc elimitation Unknown ProAir HFA 90 mcg/inh 2 puffs inhaled every 6 hours PRN wheezing Unknown Depakote ER 500 mg 1 tab(s) in am 2 tabs at bedtime orally twice a day for 30 days prescribed by neurologist Unknown MiraLax - as directed;one scoop in 8 oz liquid orally once a day for 30 days 12/01/2023 Unknown Immunizations Vaccine Route Administration Date Status Comme nts Pfizer-Biontech Covid-19 Vaccine Administration - First Dose (Single Dose 30MCG/0.3ML 1ST) Unknown 2021 Administered Pfizer-Biontech Covid-19 Vaccine Administration-Second Dose (Single Dose 30MCG/0.3ML 2ND) Unknown 02/17/2021 Administered Hepatitis B (20 or more) Unknown 06/24/2013 Administered Influenza Unknown 07/21/2022 Administered Hepatitis B (20 or more) IM Intramuscular 10/22/2022 Administered Influenza IM Intramuscular 05/15/2023 Administered Flu-IIV4, p-free Unknown 05/18/2020 Administered Tdap IM Intramuscular 10/30/2023 Administered [facility] [id number] Hepatitis B (20 or more) IM Intramuscular 10/30/2023 Administered [facility] [id number] Hepatitis A IM Intramuscular 10/30/2023 Administered 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) Active confirmed Problem Thyrotoxicosis (73386871) Thyrotoxicosis, unspecified without thyrotoxic crisis or storm (E05.90) Active confirmed with [facility] Problem Vitamin D deficiency (11819404) Vitamin D deficiency, unspecified (E55.9) Active confirmed Problem Overweight (478266999) Overweight (E66.3) Active confirmed Problem Cocaine abuse with intoxication, uncomplicated (F14.120) Active confirmed Problem Tobacco user (171890320) Nicotine dependence, unspecified, uncomplicated (F17.200) Active confirmed Problem Bipolar affective disorder, currently depressed, moderate (915909632) Bipolar disorder, current episode depressed, moderate (F31.32) Active confirmed Problem Bipolar disorder (50280926) Bipolar disorder, unspecified (F31.9) Active confirmed Followed by [facility] [employer] Problem Anxiety disorder (869710932) Anxiety disorder, unspecified (F41.9) Active confirmed Problem Posttraumatic stress disorder (76732681) Post-traumatic stress disorder, chronic (F43.12) Active confirmed Followed by [facility] [employer] Problem Epilepsy (94991021) Epilepsy, unspecified, not intractable, without status epilepticus (G40.909) Active confirmed Neurologist- [facility] Problem Chronic migraine without aura, non-refractory (disorder) (401022536930230 ) Migraine without aura, not intractable, without status migrainosus (G43.009) Active confirmed Neurologist- [facility] Problem Insomnia (008680237) Insomnia, unspecified (G47.00) Active confirmed Followed by [facility] [employer] Problem Polyneuropathy (34783653) Polyneuropathy in diseases classified elsewhere (G63) Active confirmed Problem Chronic pain syndrome (173827129) Chronic pain syndrome (G89.4) Active confirmed Followed by endocrine Problem Chronic sinusitis (50684506) Chronic sinusitis, unspecified (J32.9) Active confirmed Problem Mild intermittent asthma (603195999) Mild intermittent asthma, uncomplicated (J45.20) Active confirmed Problem Osteoarthritis of knee (581388785) Osteoarthritis of knee, unspecified (M17.9) Active confirmed Problem Backache (039257519) Dorsalgia, unspecified (M54.9) Active confirmed Problem Incontinence without sensory awareness (104252252) Incontinence without sensory awareness (N39.42) Active confirmed Problem Menopause (220876590) Menopausal and female climacteric states (N95.1) Active confirmed s/p oophorectomy for ovarian cancer Problem Closed fracture of femur (34259301) Unspecified fracture of unspecified femur, initial encounter for closed fracture (S72.90XA) Active confirmed Problem High risk drug monitoring status (014764905) terminologist (current) use of opiate analgesic (Z79.891) Active confirmed Problem Hysterectomy (004959463) Acquired absence of both cervix and uterus (Z90.710) 2019 Active confirmed February 27, 2020 [facility]: Benign Ovarian cysts, Total lap hyst, bilateral sa;pingo-oopho rectomy, 6 week uterus, complex ovarian mass on RT Specimens: uterus, cervix, bilateral Fallopian tubes and ovariesq Problem Cardiac pacemaker in situ (947300411) Presence of cardiac pacemaker (Z95.0) Active confirmed Problem Artificial knee joint present (456680280389) Presence of unspecified artificial knee joint (Z96.659) Active confirmed Problem Dependence on wheelchair (457730825) Dependence on wheelchair (Z99.3) Active confirmed Problem Body mass index 20-24 - normal (742076754) Body mass index [BMI] 20.0-20.9, adult (Z68.20) Active confirmed Problem Cocaine abuse (98962640) Cocaine abuse, uncomplicated (F14.10) Active confirmed Problem Non-toxic multinodular goiter (56370453) 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) Inactive confirmed Problem Tobacco user (701771418) Nicotine dependence, cigarettes, uncomplicated (F17.210) Inactive confirmed Problem Opioid abuse (9293165) Opioid abuse, uncomplicated (F11.10) Remission phase confirmed Problem Drug-induced constipation (14087060) Drug induced constipation (K59.03) Problem resolved confirmed Problem Body mass index 30+ - obesity (664319179) Body mass index [BMI] 30.0-30.9, adult (Z68.30) Problem resolved confirmed Vital Signs Temperature 97.3 degrees Fahrenheit 01/06/2025 Blood pressure diastolic 70 01/06/2025 Oximetry 97 01/06/2025 Height 71 in 01/06/2025 Blood pressure systolic 107 01/06/2025 Weight 163.8 lbs 01/06/2025 BMI 22.84 kg/m2 01/06/2025 Encounters Encounter Location Date Provider Diagnosis [address] [id number] 01/11/2025 Laila Molina Bipolar disorder, current episode depressed, moderate F31.32 ; Cocaine abuse with intoxication, uncomplicated F14.120 ; Opioid abuse, uncomplicated F11.10 ; Insomnia, unspecified G47.00 ; Post-traumatic stress disorder, chronic F43.12 ; Epilepsy, unspecified, not intractable, without status epilepticus G40.909 ; Anxiety disorder, unspecified F41.9 ; Presence of cardiac pacemaker Z95.0 and Chronic pain syndrome G89.[address] [id number] 02/05/2024 Eva Lantigua Encounter for screening for COVID-19 Z11.52 ; Qualitative platelet defects D69.1 ; Hypotension due to drugs I95.2 ; Nicotine dependence, unspecified, uncomplicated F17.200 ; Acquired absence of both cervix and uterus Z90.710 and Epilepsy, unspecified, not intractable, without status epilepticus G40.[address] [id number] 02/12/2024 Eva Lantigua Encounter for screening for COVID-19 Z11.52 ; Sprain of unspecified ligament of left ankle, initial encounter S93.402A ; Presence of cardiac pacemaker Z95.0 ; Nicotine dependence, unspecified, uncomplicated F17.200 and Bipolar disorder, unspecified F31.[address] [id number] 02/12/2024 Laila Molina Bipolar disorder, current episode depressed, mild F31.31 ; Insomnia, unspecified G47.00 ; Post-traumatic stress disorder, chronic F43.12 ; Epilepsy, unspecified, not intractable, without status epilepticus G40.909 ; Anxiety disorder, unspecified F41.9 ; Presence of cardiac pacemaker Z95.0 ; Opioid abuse, uncomplicated F11.10 and Encounter for screening for COVID-19 Z11.52 [facility] [address] [place] [address] [place] [id number] 03/18/2024 Laila Molina Bipolar disorder, current episode depressed, mild F31.31 ; Insomnia, unspecified G47.00 ; Post-traumatic stress disorder, chronic F43.12 ; Epilepsy, unspecified, not intractable, without status epilepticus G40.909 ; Anxiety disorder, unspecified F41.9 ; Presence of cardiac pacemaker Z95.0 ; Opioid abuse, uncomplicated F11.10 ; Chronic pain syndrome G89.4 and Encounter for screening for COVID-[address] [id number] 06/10/2024 Nursing [facility] Encounter for screening, unspecified Z13.9 [facility] [place] [id number] 06/14/2024 Eva Lantigua Encounter for screening for COVID-19 Z11.52 ; Osteoarthritis of knee, unspecified M17.9 and Opioid abuse, uncomplicated F11.10 [facility] [place] [id number] 06/14/2024 Laila Molina Bipolar disorder, current episode depressed, mild F31.31 ; Opioid abuse, uncomplicated F11.10 ; Insomnia, unspecified G47.00 ; Post-traumatic stress disorder, chronic F43.12 ; Epilepsy, unspecified, not intractable, without status epilepticus G40.909 ; Anxiety disorder, unspecified F41.9 ; Presence of cardiac pacemaker Z95.0 ; Chronic pain syndrome G89.4 ; Cocaine abuse with intoxication, uncomplicated F14.120 and Encounter for screening for COVID-19 Z11.52 [facility] [place] [id number] 06/30/2024 Laila Molina Cocaine abuse with intoxication, uncomplicated F14.120 ; Bipolar disorder, current episode depressed, moderate F31.32 ; Opioid abuse, uncomplicated F11.10 ; Insomnia, unspecified G47.00 ; Post-traumatic stress disorder, chronic F43.12 ; Epilepsy, unspecified, not intractable, without status epilepticus G40.909 ; Anxiety disorder, unspecified F41.9 ; Presence of cardiac pacemaker Z95.0 ; Encounter for screening for COVID-19 Z11.52 and Chronic pain syndrome G89.[address] [place] [id number] 07/21/2024 Laila Molina Cocaine abuse with intoxication, uncomplicated F14.120 ; Opioid abuse, uncomplicated F11.10 ; Bipolar disorder, current episode depressed, moderate F31.32 ; Insomnia, unspecified G47.00 ; Post-traumatic stress disorder, chronic F43.12 ; Epilepsy, unspecified, not intractable, without status epilepticus G40.909 ; Anxiety disorder, unspecified F41.9 ; Presence of cardiac pacemaker Z95.0 ; Chronic pain syndrome G89.4 and Encounter for screening for COVID-[address] [place] [id number] 08/19/2024 Laila Molina Cocaine abuse with intoxication, uncomplicated F14.120 ; Opioid abuse, uncomplicated F11.10 ; Bipolar disorder, current episode depressed, moderate F31.32 ; Insomnia, unspecified G47.00 ; Post-traumatic stress disorder, chronic F43.12 ; Epilepsy, unspecified, not intractable, without status epilepticus G40.909 ; Anxiety disorder, unspecified F41.9 ; Presence of cardiac pacemaker Z95.0 ; Chronic pain syndrome G89.4 and Encounter for screening for COVID-[address] [place] [id number] 08/26/2024 Eva Lantigua Encounter for screening for COVID-19 Z11.52 ; Osteoarthritis of knee, unspecified M17.9 ; Chronic pain syndrome G89.4 ; Mild intermittent asthma, uncomplicated J45.20 ; Cocaine abuse, uncomplicated F14.10 ; Dependence on wheelchair Z99.3 ; terminologist (current) use of opiate analgesic Z79.891 ; Influenza due to identified novel influenza A virus with other respiratory manifestations J09.X2 and Urinary tract infection, site not specified N39.[address] [id number] 09/16/2024 Eva Lantigua Encounter for screening for COVID-19 Z11.52 ; Cocaine abuse, uncomplicated F14.10 ; Chronic pain syndrome G89.4 ; Epilepsy, unspecified, not intractable, without status epilepticus G40.909 ; Osteoarthritis of knee, unspecified M17.9 ; Presence of unspecified artificial knee joint Z96.659 ; Bipolar disorder, current episode depressed, moderate F31.32 and Chronic sinusitis, unspecified J32.[address] [id number] 09/16/2024 Madisonabiodun Da SilvaTracy Bipolar disorder, current episode depressed, moderate F31.32 ; Cocaine abuse with intoxication, uncomplicated F14.120 ; Opioid abuse, uncomplicated F11.10 ; Insomnia, unspecified G47.00 ; Post-traumatic stress disorder, chronic F43.12 ; Epilepsy, unspecified, not intractable, without status epilepticus G40.909 ; Anxiety disorder, unspecified F41.9 ; Presence of cardiac pacemaker Z95.0 ; Chronic pain syndrome G89.4 and Encounter for screening for COVID-19 Z11.[address] [id number] 12/07/2024 Madisonabiodun Tracy Bipolar disorder, current episode depressed, moderate F31.32 ; Cocaine abuse with intoxication, uncomplicated F14.120 ; Opioid abuse, uncomplicated F11.10 ; Insomnia, unspecified G47.00 ; Post-traumatic stress disorder, chronic F43.12 ; Epilepsy, unspecified, not intractable, without status epilepticus G40.909 ; Anxiety disorder, unspecified F41.9 ; Presence of cardiac pacemaker Z95.0 ; Chronic pain syndrome G89.4 and Encounter for screening for COVID-[address] [id number] 01/06/2025 Eva Lantigua Encounter for screening for COVID-19 Z11.52 ; Chronic pain syndrome G89.4 ; [facility] (current) use of opiate analgesic Z79.891 ; Bipolar disorder, current episode depressed, moderate F31.32 ; Thyrotoxicosis, unspecified without thyrotoxic crisis or storm E05.90 ; Encounter for screening for malignant neoplasm of colon Z12.11 ; Nicotine dependence, unspecified, uncomplicated F17.200 ; Epilepsy, unspecified, not intractable, without status epilepticus G40.909 ; Osteoarthritis of knee, unspecified M17.9 ; Presence of cardiac pacemaker Z95.0 and Mild intermittent asthma, uncomplicated J45.[address] [id number] 01/11/2025 Eva Balder [address] [id number] 02/01/2024 Eva Balder Chronic pain syndrom e G89.[address] [id number] 02/05/2024 Eva Balder [address] [id number] 02/08/2024 Eva Balder [address] [id number] 02/13/2024 Eva Balder [address] [id number] 02/18/2024 Eva Balder Chronic pain syndrom e G89.[address] [id number] 03/03/2024 Eva Balder Chronic pain syndrom e G89.[address] [id number] 03/17/2024 Eva Balder Chronic pain syndrom e G89.[address] [id number] 03/17/2024 Eva Balder [address] [id number] 03/31/2024 Eva Balder Chronic pain syndrom e G89.[address] [id number] 04/15/2024 Eva Balder Chronic pain syndrom e G89.[address] [id number] 04/15/2024 Eva Balder [address] [id number] 04/26/2024 Eva Balder Chronic pain syndrom e G89.[address] [id number] 04/29/2024 Eva Balder [address] [id number] 05/06/2024 Eva [facility] [address] [place] [id number] 05/09/2024 Eva Mendozader [address] [id number] 05/12/2024 Eva Balder Chronic pain syndrom e G89.[address] [place] [id number] 05/18/2024 Eva Rejider [address] [id number] 05/20/2024 Eva Balder [address] [id number] 06/07/2024 Eva Balder Chronic pain syndrom e G89.4 and Prediabetes R73.[address] [id number] 06/10/2024 Eva Lantigua Bipolar disorder, unspecified F31.[address] [id number] 06/24/2024 Eva Lantigua Insomnia, unspecifie d G47.00 ; Cocaine abuse, uncomplicated F14.10 and Dorsalgia, unspecified M54.[address] [id number] 07/04/2024 Eva Balder Chronic pain syndrom e G89.[address] [id number] 07/07/2024 Eva Balder [address] [id number] 07/20/2024 Eva Balder Chronic pain syndrom e G89.[address] [id number] 07/26/2024 Eva Balder [address] [id number] 08/04/2024 Eva Balder Chronic pain syndrom e G89.4 and Encounter for screening for COVID-19 Z11.[address] [id number] 08/18/2024 Eva Balder Chronic pain syndrom e G89.[address] [id number] 08/26/2024 Eva Balder [address] [id number] 09/01/2024 Eva Balder Chronic pain syndrom e G89.[address] [id number] 09/02/2024 Eva Balder [address] [id number] 09/16/2024 Eva Balder [address] [id number] 09/26/2024 Eva Lantigua Cocaine abuse with intoxication, uncomplicated F14.120 and Chronic pain syndrome G89.[address] [id number] 09/28/2024 Eva Lantigua [address] [id number] 10/06/2024 Eva Lantigua [address] [id number] 10/13/2024 Eva Lantigua Chronic pain syndrom e G89.[address] [id number] 10/26/2024 Eva Lantigua Chronic pain syndrom e G89.[address] [id number] 11/04/2024 Eva Lantigua [address] [id number] 11/08/2024 Eva Lantigua Encounter for screening for COVID-19 Z11.[address] [id number] 11/08/2024 Eva Lantigua [address] [id number] 11/09/2024 Eva Latnigua [address] [id number] 11/09/2024 Eva Lantigua [address] [id number] 11/22/2024 Eva Lantigua [address] [id number] 11/30/2024 Eva Lantigua [address] [id number] 12/13/2024 Eva Lantigua [address] [id number] 12/13/2024 Eva Lantigua Chronic pain syndrom e G89.[address] [id number] 12/13/2024 Eva Lantigua Chronic pain syndrom e G89.4 [address] [address] [id number] 12/23/2024 [address]ua [address] [id number] 12/26/2024 Eva Lantigua [address] [id number] 12/26/2024 Eva Grzegorz Chronic pain syndrom e G89.4 and Bipolar disorder, unspecified F31.[address] [id number] 01/02/2025 Eva Lantigua [address] [id number] 01/04/2025 Eva Lantigua Chronic pain syndrom e G89.4 Assessments Encounter Date Diagnosis (ICD Code) Assessment Notes Treatment Notes Treatment Clinical Notes Section Notes 01/11/2025 Bipolar disorder, current episode depressed, moderate (ICD-10 - F31.32) Reviewed hx of psychiatric illness, treatment received and medication trials with client. Discussed current medications as to indications, actions and side effects. Reviewed risks benefits of treatment versus non treatment. Medication education provided. Patient given opportunity to ask questions. Patient gives informed consent to proceed with prescribed treatment. 1. 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 Medications: Depakote prescribed by neurologist. Clt aware also helpful for mood stabilization in Bipolar D/O. Cont. Duloxteine to 30 mg BID. Started on Abilify 2 mg while hsopitalized at [facility]. 3. Psychotherapy: Has new intake scheduled with Violetta Phan [facility] 12/26/24 changed to phone appt. 4. Labs/Procedures: Has f/u with Dr. Lantigua 01/06/25, cleient aware it will be in person appt. 5. Exercise/Nutrition: sleep, regular exercise and nutrition all have a direct impact on our health and well-being. Keeping them in balance is especially important when we face stressful times in our lives. Eat balanced meals, get 6-8 hours of sleep a night, daily walking as able. 6. Understands plan and verbalizes agreement, allowed time for clarifying questions. Most common side effects may include but are not limited to: dry mouth, constipation, diarrhea, decreased appetite, vomiting, fatigue, insomnia, dizziness, agitation, sweating, headache, urinary hesitancy and sexual side effects. Serious but rare s/e include hepatic failure. May cause orthostatic hypotension in first week of therapy and after dose increases. Please rise slowly from prone and seated positions. Rare urinary retention. Advised to seek help with any side effects. S/E of Antipsychotic Medication Aripiprazole reviewed with client and may include but are not limited to: weight gain and metabolic syndrome, risk of EPS, sedation/dizziness, elevated prolactin, anticholinergisc s/e, uncommon risk of TD and rare risk of NMS. Will require regular monitoring of wt, BP, Hgb A1C, lipids and AIMS exam. 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 02/12/2024 Sprain of unspecified ligament of left ankle, initial encounter (ICD-10 - S93.402A) I am not sure there is frcature but she certainyl ois at [facility]. [place] [facility] [place] nd asked for wet read to me and her ortho offise. Said she would ait at home for report 02/12/2024 Encounter for screening for COVID-19 (ICD-10 - [...] you are having concerning symptoms for COVID-19. 02/12/2024 Bipolar disorder, current episode depressed, mild (ICD-10 - F31.31) Reviewed hx of psychiatric illness, treatment received and medication trials with client. Discussed current medications as to indications, actions and side effects. Reviewed risks benefits of treatment versus non treatment. Medication education provided. Patient given opportunity to ask questions. Patient gives informed consent to proceed with prescribed treatment. 1. 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 Medications: cont Depakote at current dose. Being prescribed by neurologist. Clt aware also helpful for mood stabilization in Bipolar D/O. Note per clt topamax and lamictal were stopped by neurologist. Pradeep Kindra has RF from . 3. Psychotherapy: she and CM actively looking for therapist to provide weekly sessions 4. Labs/Procedures: getting Xrays ankle today see HPI. 5. Exercise/Nutrition: sleep, regular exercise and nutrition [...] verbalizes agreement, allowed time for clarifying questions. Engaged with [facility] team for care 03/18/2024 Bipolar disorder, current episode depressed, mild (ICD-10 - F31.31) Reviewed hx of psychiatric illness, treatment received and medication trials with client. Discussed current medications as to indications, actions and side effects. Reviewed risks benefits of treatment versus non treatment. Medication education provided. Patient given opportunity to ask questions. Patient gives informed consent to proceed with prescribed treatment. 1. 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 Medications: cont Depakote at current dose. Being prescribed by neurologist. Clt aware also helpful for mood stabilization in Bipolar D/O. Pradeep Arguelles has RF from . 3. Psychotherapy: she and CM actively looking for therapist to provide weekly sessions 4. Labs/Procedures: no new labs for review 5. Exercise/Nutrition: sleep, regular exercise and nutrition [...] verbalizes agreement, allowed time for clarifying questions. Engaged with [facility] team for care 06/10/2024 Encounter for screening, unspecified (ICD-10 - Z13.9) Labs drawn per protocol, no difficulties, sent to lab, pt to RTC for f/u 06/14/2024 Osteoarthritis of knee, unspecified (ICD-10 - M17.9) renewing her diclofenac and piate.A sked her to keep indocin to 50 bid. Says she was cleared for suregery by cardiology and awaits word on both TKR and ankle (?fusion?). 06/14/2024 Encounter for screening for COVID-19 (ICD-10 - [...] you are having concerning symptoms for COVID-19. 06/14/2024 Bipolar disorder, current episode depressed, mild (ICD-10 - F31.31) Reviewed hx of psychiatric illness, treatment received and medication trials with client. Discussed current medications as to indications, actions and side effects. Reviewed risks benefits of treatment versus non treatment. Medication education provided. Patient given opportunity to ask questions. Patient gives informed consent to proceed with prescribed treatment. 1. 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 Medications: Depakote prescribed by neurologist. Clt aware also helpful for mood stabilization in Bipolar D/O. Depakote level wnl. 3. Psychotherapy: Per clt getting therapy through [facility]. 4. Labs/Procedures: as above 5. Exercise/Nutrition: sleep, regular exercise and nutrition [...] verbalizes agreement, allowed time for clarifying questions. 06/30/2024 Cocaine abuse with intoxication, uncomplicated (ICD-10 - F14.120) Clt continues to work with development coach, getting [facility] and at [facility]. aware of triggers and actively working on reducing them. Started back on baclofen 5 mg TID, she was started on medication for cocaine craving while at [facility] and asked to continue medication. Craving somewhat improved. Topamax prescribed by neuro in past for seizures was D/C'd by neuro. 06/30/2024 Bipolar disorder, current episode depressed, moderate (ICD-10 - F31.32) Reviewed hx of psychiatric illness, treatment received and medication trials with client. Discussed current medications as to indications, actions and side effects. Reviewed risks benefits of treatment versus non treatment. Medication education provided. Patient given opportunity to ask questions. Patient gives informed consent to proceed with prescribed treatment. 1. 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 Medications: Depakote prescribed by neurologist. Clt aware also helpful for mood stabilization in Bipolar D/O. Increase in Duloxteine to 30 mg BID per clt request. Depakote level wnl. 3. Psychotherapy: Per clt getting therapy through [facility]. 4. Labs/Procedures: as above 5. Exercise/Nutrition: sleep, regular exercise and nutrition [...] verbalizes agreement, allowed time for clarifying questions. 07/21/2024 Cocaine abuse with intoxication, uncomplicated (ICD-10 - F14.120) Clt continues to work with development coach, getting counsaling at [facility] and at [facility]. aware of triggers and actively working on reducing them. Started back on baclofen 5 mg TID, she was started on medication for cocaine craving while at [facility] and asked to continue medication. Craving somewhat improved. Topamax prescribed by neuro in past for seizures was D/C'd by neuro as caused headaches. 08/19/2024 Cocaine abuse with intoxication, uncomplicated (ICD-10 - F14.120) Clt continues to work with development coach, getting counsaling at [facility] and at [facility]. aware of triggers and actively working on reducing them. Started back on baclofen 5 mg TID, she was started on medication for cocaine craving while at [facility] and asked to continue medication. Craving somewhat improved. Topamax prescribed by neuro in past for seizures was D/C'd by neuro as caused headaches. 08/26/2024 Osteoarthritis of knee, unspecified (ICD-10 - M17.9) See HPI. Itold her pre-op has to beless shemar 30 days from surgery-I guess October. 08/26/2024 Encounter for screening for COVID-19 (ICD-10 - Z11.52) Covid verbal screening negative. 09/16/2024 Cocaine abuse, uncomplicated (ICD-10 - F14.10) This has come to a head last 3-4 months and is cuaing morepotentialk sreoious issues. Needs reovery process 09/16/2024 Encounter for screening for COVID-19 (ICD-10 [...] are having concerning symptoms for COVID-19. 09/16/2024 Bipolar disorder, current episode depressed, moderate (ICD-10 - F31.32) Reviewed hx of psychiatric illness, treatment received and medication trials with client. Discussed current medications as to indications, actions and side effects. Reviewed risks benefits of treatment versus non treatment. Medication education provided. Patient given opportunity to ask questions. Patient gives informed consent to proceed with prescribed treatment. 1. 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 Medications: Depakote prescribed by neurologist. Clt aware also helpful for mood stabilization in Bipolar D/O. Cont. Duloxteine to 30 mg BID per clt request. Depakote level wnl. 3. Psychotherapy: Per clt getting therapy through [facility]. 4. Labs/Procedures: no new labs for review. [...] verbalizes agreement, allowed time for clarifying questions. [facility] Crisis called. Clt stayed at clinic to be evaluated. Determined clt appropriate for REspite Stay. Mo bed available today they will call and check on clt tonight and call again tomorrow with bed update. Clt's mother agrees clt can return home until respite bed available. 12/07/2024 Bipolar disorder, current episode depressed, moderate (ICD-10 - F31.32) Reviewed hx of psychiatric illness, treatment received and medication trials with client. Discussed current medications as to indications, actions and side effects. Reviewed risks benefits of treatment versus non treatment. Medication education provided. Patient given opportunity to ask questions. Patient gives informed consent to proceed with prescribed treatment. 1. 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 Medications: Depakote prescribed by neurologist. Clt aware also helpful for mood stabilization in Bipolar D/O. Cont. Duloxteine to 30 mg BID. Started on Abilify 2 mg while hsopitalized at [facility]. 3. Psychotherapy: Has new intake scheduled with Violetta Phan [facility] 12/26/24 changed to phone appt. 4. Labs/Procedures: Has f/u with Dr. Lantigua 01/06/25, cleient aware it will be in person appt. 5. Exercise/Nutrition: sleep, regular exercise and nutrition all have a direct impact on our health and well-being. Keeping them in balance is especially important when we face stressful times in our lives. Eat balanced meals, get 6-8 hours of sleep a night, daily walking as able. 6. Understands plan and verbalizes agreement, allowed time for clarifying questions. Most common side effects may include but are not limited to: dry mouth, constipation, diarrhea, decreased appetite, vomiting, fatigue, insomnia, dizziness, agitation, sweating, headache, urinary hesitancy and sexual side effects. Serious but rare s/e include hepatic failure. May cause orthostatic hypotension in first week of therapy and after dose increases. Please rise slowly from prone and seated positions. Rare urinary retention. Advised to seek help with any side effects. S/E of Antipsychotic Medication Aripiprazole reviewed with client and may include but are not limited to: weight gain and metabolic syndrome, risk of EPS, sedation/dizziness, elevated prolactin, anticholinergisc s/e, uncommon risk of TD and rare risk of NMS. Will require regular monitoring of wt, BP, Hgb A1C, lipids and AIMS exam. 01/06/2025 Chronic pain syndrome (ICD-10 - G89.4) Followed by endocrine We have struggled with her chonic pain for years and she is clearly in better place right now. I am comfortale continuing. oopiate agreement done. Stay in 15 oxy [id number] understands. Can boost at surgeryif needed and she is WAY down on methadone whih=ch really helps he rpersona and BP and cardiac riosk 01/06/2025 Encounter for screening for COVID-19 (ICD-10 - [...] you are having concerning symptoms for COVID-19. 02/01/2024 Chronic pain syndrome (ICD-10 - G89.4) 02/18/2024 Chronic pain syndrome (ICD-10 - G89.4) 03/03/2024 Chronic pain syndrome (ICD-10 - G89.4) 03/17/2024 Chronic pain syndrome (ICD-10 - G89.4) 03/31/2024 Chronic pain syndrome (ICD-10 - G89.4) Followed by endocrine 04/15/2024 Chronic pain syndrome (ICD-10 - G89.4) Followed by endocrine 04/26/2024 Chronic pain syndrome (ICD-10 - G89.4) Followed by endocrine 05/12/2024 Chronic pain syndrome (ICD-10 - G89.4) 06/07/2024 Chronic pain syndrome (ICD-10 - G89.4) 06/10/2024 Bipolar disorder, unspecified (ICD-10 - F31.9) Followed by [facility] Client would like increase in Duloxetine dose, current dose 30 mg. Shared decision making to trial of [address] BID, see note. Clients mother was aslo on cll with client and aware of medication change. 06/24/2024 Cocaine abuse, uncomplicated (ICD-10 - F14.10) 06/24/2024 Insomnia, unspecified (ICD-10 - G47.00) 07/04/2024 Chronic pain syndrome (ICD-10 - G89.4) Followed by endocrine 07/20/2024 Chronic pain syndrome (ICD-10 - G89.4) Followed by endocrine 08/04/2024 Chronic pain syndrome (ICD-10 - G89.4) 08/18/2024 Chronic pain syndrome (ICD-10 - G89.4) 09/01/2024 Chronic pain syndrome (ICD-10 - G89.4) Followed by endocrine 09/26/2024 Cocaine abuse with intoxication, uncomplicated (ICD-10 - F14.120) 10/13/2024 Chronic pain syndrome (ICD-10 - G89.4) Followed by endocrine 10/26/2024 Chronic pain syndrome (ICD-10 - G89.4) Followed by endocrine 11/08/2024 Encounter for screening for COVID-19 (ICD-10 - Z11.52) 12/13/2024 Chronic pain syndrome (ICD-10 - G89.4) 12/13/2024 Chronic pain syndrome (ICD-10 - G89.4) 12/26/2024 Chronic pain syndrome (ICD-10 - G89.4) 01/04/2025 Chronic pain syndrome (ICD-10 - G89.4) 01/11/2025 Cocaine abuse with intoxication, uncomplicated (ICD-10 - F14.120) Topamax prescribed by neuro in past for seizures was D/C'd by neuro as caused headaches. She is currently in recovery with clean date 11/15/24. She is at he4r mother's home temporarily. She asked to go back on Baclofen 5 mg BNID as helped with cocaine cravings in the past. Will also make Dr. Lantigua aware. 02/05/2024 Hypotension due to drugs (ICD-10 - I95.2) Our list does not include BOP med but we ahve had trouble gettign cards list. Will reasses 02/11 but for now cautioned about angina 02/12/2024 Presence of cardiac pacemaker (ICD-10 - Z95.0) sie clean, says wireless reports are excellent 02/12/2024 Insomnia, unspecified (ICD-10 - G47.00) Followed by [facility] Sleeping well and denies any side effects from medication. 03/18/2024 Insomnia, unspecified (ICD-10 - G47.00) Followed by [facility] Sleeping well and denies any side effects from medication. 06/14/2024 Opioid abuse, uncomplicated (ICD-10 - F11.10) she feels prettyb secure in recovery right now andis working with multiple counslors. Mom safeguyards her rx opiate 06/14/2024 Opioid abuse, uncomplicated (ICD-10 - F11.10) 07/21/2024 Opioid abuse, uncomplicated (ICD-10 - F11.10) 08/19/2024 Opioid abuse, uncomplicated (ICD-10 - F11.10) 08/26/2024 Chronic pain syndrome (ICD-10 - G89.4) Followed by endocrine She is not asking for more mes. We never did formal agreement for opaites and she is booked in person oin a fewweeks. She knows she must make it in 09/16/2024 Chronic pain syndrome (ICD-10 - G89.4) Followed by endocrine [facility] e[facility] to renew her opoiate. D/c would be very tough and taoper hared to manage. MAy want to flip to long acting but cannot do that today given other issues 09/16/2024 Cocaine abuse with intoxication, uncomplicated (ICD-10 - F14.120) Meena reports 3 year anniversary of spouses has been triggering to increased cocaine use. Per collateral information from meena's mother, empty cocaine bags were foun d in clients room under her bed. She and mother have agreement that client cannot use at home. Mother requests clt obtain treatment before returning home. See notes re: crisis evaluation and respite bed. Yot continues to work with development coach, getting [facility] and at [facility]. aware of triggers and actively working on reducing them. Started back on baclofen 5 mg TID, she was started on medication for cocaine craving while at [facility] and asked to continue medication. Craving somewhat improved. Topamax prescribed by neuro in past for seizures was D/C'd by neuro as caused headaches. 12/07/2024 Cocaine abuse with intoxication, uncomplicated (ICD-10 - F14.120) Topamax prescribed by neuro in past for seizures was D/C'd by neuro as caused headaches. She is currently in recovery with clean date 11/15/24. She plans to go to residential program after she leaves [facility] [place] in [facility]. 01/06/2025 terminologist (current) use of opiate analgesic (ICD-10 - Z79.891) Urine obtained and transferred to labeled spec tube, awaiting lab mixing picker tender. 06/07/2024 Prediabetes (ICD-10 - R73.03) 06/24/2024 Dorsalgia, unspecified (ICD-10 - M54.9) 08/04/2024 Encounter for screening for COVID-19 (ICD-10 - Z11.52) 09/26/2024 Chronic pain syndrome (ICD-10 - G89.4) Followed by endocrine 12/26/2024 Bipolar disorder, unspecified (ICD-10 - F31.9) Followed by [facility] 01/11/2025 Opioid abuse, uncomplicated (ICD-10 - F11.10) Per clt on 8 mg of methadone, has been tapering down pending ortho surgery. 02/05/2024 Nicotine dependence, unspecified, uncomplicated (ICD-10 - F17.200) doing really well-occ vape 02/12/2024 Nicotine dependence, unspecified, uncomplicated (ICD-10 - F17.200) Improving 02/12/2024 Post-traumatic stress disorder, chronic (ICD-10 - F43.12) Mirtazapine was stopped by ambulance assistant. Encouraged to discuss with therapist. 03/18/2024 Post-traumatic stress disorder, chronic (ICD-10 - F43.12) Working on getting new therapist. 06/14/2024 Insomnia, unspecified (ICD-10 - G47.00) Dose increased at [facility]. She stopped Seroquel at [facility] prescribed by [facility] on her own due to s/e. 06/30/2024 Opioid abuse, uncomplicated (ICD-10 - F11.10) 07/21/2024 Bipolar disorder, current episode depressed, moderate (ICD-10 - F31.32) Reviewed hx of psychiatric illness, treatment received and medication trials with client. Discussed current medications as to indications, actions and side effects. Reviewed risks benefits of treatment versus non treatment. Medication education provided. Patient given opportunity to ask questions. Patient gives informed consent to proceed with prescribed treatment. 1. 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 Medications: Depakote prescribed by neurologist. Clt aware also helpful for mood stabilization in Bipolar D/O. Cont. Duloxteine to 30 mg BID per clt request. Depakote level wnl. 3. Psychotherapy: Per clt getting therapy through [facility]. 4. Labs/Procedures: no new labs for review 5. Exercise/Nutrition: sleep, regular exercise and nutrition [...] verbalizes agreement, allowed time for clarifying questions. 07/21/2024 Insomnia, unspecified (ICD-10 - G47.00) Dose increased at [facility]. She stopped Seroquel at [facility] prescribed by [facility] on her own due to s/e. 08/19/2024 Bipolar disorder, current episode depressed, moderate (ICD-10 - F31.32) Reviewed hx of psychiatric illness, treatment received and medication trials with client. Discussed current medications as to indications, actions and side effects. Reviewed risks benefits of treatment versus non treatment. Medication education provided. Patient given opportunity to ask questions. Patient gives informed consent to proceed with prescribed treatment. 1. 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 Medications: Depakote prescribed by neurologist. Clt aware also helpful for mood stabilization in Bipolar D/O. Cont. Duloxteine to 30 mg BID per clt request. Depakote level wnl. 3. Psychotherapy: Per clt getting therapy through [facility]. 4. Labs/Procedures: no new labs for review. [...] verbalizes agreement, allowed time for clarifying questions. 08/26/2024 Mild intermittent asthma, uncomplicated (ICD-10 - J45.20) Has tolerated the flu well! 09/16/2024 Epilepsy, unspecified, not intractable, without status epilepticus (ICD-10 - G40.909) Neurologist- Dr. [facility] Noseizures at present 09/16/2024 Opioid abuse, uncomplicated (ICD-10 - F11.10) 12/07/2024 Opioid abuse, uncomplicated (ICD-10 - F11.10) Per clt on 8 mg of methadone, has been tapering down pending ortho surgery. 01/06/2025 Bipolar disorder, current episode depressed, moderate (ICD-10 - F31.32) She herself notres shge is chrinically somewhat mnaic. 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 Per clt no seizure activity since 07/202303/18/2024 Epilepsy, unspecified, not intractable, without status epilepticus (ICD-10 - G40.909) [facility]. Per clt no seizure activity since 07/202306/14/2024 Post-traumatic stress disorder, chronic (ICD-10 - F43.12) Encouraged to work on with therapist. 06/30/2024 Insomnia, unspecified (ICD-10 - G47.00) Dose increased at [facility]. She stopped Seroquel at [facility] prescribed by [facility] on her own due to s/e. 07/21/2024 Post-traumatic stress disorder, chronic (ICD-10 - F43.12) Encouraged to work on with therapist. 08/19/2024 Insomnia, unspecified (ICD-10 - G47.00) Dose increased at [facility]. Doing well on this dose. 08/26/2024 Cocaine abuse, uncomplicated (ICD-10 - F14.10) Doing well at present. Last use last year 09/16/2024 Osteoarthritis of knee, unspecified (ICD-10 - M17.9) I hope she can se eortho. will be hard to get through surgery 09/16/2024 Insomnia, unspecified (ICD-10 - G47.00) Dose increased at [facility]. Doing well on this dose. 12/07/2024 Insomnia, unspecified (ICD-10 - G47.00) 01/06/2025 Thyrotoxicosis, unspecified without thyrotoxic crisis or storm (ICD-10 - E05.90) with [facility] Endocrinology Has been stable 01/11/2025 Post-traumatic stress disorder, chronic (ICD-10 - F43.12) Receiving services at [facility] and also has appt with ADALBERTO Phan at [facility]. 02/05/2024 Epilepsy, unspecified, not intractable, without status epilepticus (ICD-10 - G40.909) Neurologist- [facility] seiuzure free over 6 mos abnd karly. Sees neuro and will stay on meds at present 02/12/2024 Anxiety disorder, unspecified (ICD-10 - F41.9) Helpful for anxiety control. 03/18/2024 Anxiety disorder, unspecified (ICD-10 - F41.9) Helpful for anxiety control. 06/14/2024 Epilepsy, unspecified, not intractable, without status epilepticus (ICD-10 - G40.909) [facility] Per clt no seizure activity since 07/2023. Valproic Acid level wnl see above. 06/30/2024 Post-traumatic stress disorder, chronic (ICD-10 - F43.12) Encouraged to work on with therapist. 07/21/2024 Epilepsy, unspecified, not intractable, without status epilepticus (ICD-10 - G40.909) [facility] Per clt no seizure activity since 07/2023.Las t Valproic acid level wnl. See labs. 08/19/2024 Post-traumatic stress disorder, chronic (ICD-10 - F43.12) Encouraged to work on with therapist. 08/26/2024 Dependence on wheelchair (ICD-10 - Z99.3) Daisy contact [facility] to get us equipment needs list. Cecy-nurse left her a message 09/16/2024 Presence of unspecified artificial knee joint (ICD-10 - Z96.659) 09/16/2024 Post-traumatic stress disorder, chronic (ICD-10 - F43.12) Encouraged to work on with therapist. 12/07/2024 Post-traumatic stress disorder, chronic (ICD-10 - F43.12) Receiving services at [facility] and also has appt with [facility] Violetta Phan at [facility]. 01/06/2025 Encounter for screening for malignant neoplasm of colon (ICD-10 - Z12.11) agrees to FIT 01/11/2025 Epilepsy, unspecified, not intractable, without status epilepticus (ICD-10 - G40.909) [facility]. Keppra was increased when she was hospitalized related to increase in seizure activity. Currently seizure free. 02/12/2024 Presence of cardiac pacemaker (ICD-10 - Z95.0) Following with cardiology 03/18/2024 Presence of cardiac pacemaker (ICD-10 - Z95.0) Following with cardiology. Per clt metoprolol dose increased by [facility]. 06/14/2024 Anxiety disorder, unspecified (ICD-10 - F41.9) Helpful for anxiety control. 06/30/2024 Epilepsy, unspecified, not intractable, without status epilepticus (ICD-10 - G40.909) [facility]. Per clt no seizure activity since 07/2023. Valproic Acid level wnl see above. 07/21/2024 Anxiety disorder, unspecified (ICD-10 - F41.9) Helpful for anxiety control. 08/19/2024 Epilepsy, unspecified, not intractable, without status epilepticus (ICD-10 - G40.909) [facility]. Per clt no seizure activity since 07/2023.Las t Valproic acid level wnl. See labs. 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 Has controlled this pretty well 09/16/2024 Bipolar disorder, current episode depressed, moderate (ICD-10 - F31.32) seeing today 09/16/2024 Epilepsy, unspecified, not intractable, without status epilepticus (ICD-10 - G40.909) [facility]. Per clt no seizure activity since 07/2023.Las t Valproic acid level wnl. See labs. 12/07/2024 Epilepsy, unspecified, not intractable, without status epilepticus (ICD-10 - G40.909) [facility]. Keppra was increased when she was hospitalized related to increase in seizure activity. Currently seizure free. 01/06/2025 Nicotine dependence, unspecified, uncomplicated (ICD-10 - F17.200) Working on this slowly 01/11/2025 Anxiety disorder, unspecified (ICD-10 - F41.9) Need to verify if client is still on hydroxyzine for anxiety. 02/12/2024 Opioid abuse, uncomplicated (ICD-10 - F11.10) Dr. Lantigua managing pain medication. 03/18/2024 Opioid abuse, uncomplicated (ICD-10 - F11.10) Dr. Lantigua managing pain medication. 06/14/2024 Presence of cardiac pacemaker (ICD-10 - Z95.0) 06/30/2024 Anxiety disorder, unspecified (ICD-10 - F41.9) Helpful for anxiety control. 07/21/2024 Presence of cardiac pacemaker (ICD-10 - Z95.0) Followed by cardiology. 08/19/2024 Anxiety disorder, unspecified (ICD-10 - F41.9) Helpful for anxiety control. 08/26/2024 Influenza due to identified novel influenza A virus with other respiratory manifestations (ICD-10 - J09.X2) Improving 09/16/2024 Chronic sinusitis, unspecified (ICD-10 - J32.9) she has devieted septim-does not help I am going inhlaed nasal steroid right now and avoiding antibiotics given multiple exposures. Not ehlpe dby her cocoaine snborting 09/16/2024 Anxiety disorder, unspecified (ICD-10 - F41.9) Helpful for anxiety control. 12/07/2024 Anxiety disorder, unspecified (ICD-10 - F41.9) Need to verify if client is still on hydroxyzine for anxiety. 01/06/2025 Epilepsy, unspecified, not intractable, without status epilepticus (ICD-10 - G40.909) Neurologist- [facility]. [facility] Says she has alot of petit mal. [facility] trough depakote level 01/11/2025 Presence of cardiac pacemaker (ICD-10 - Z95.0) Followed by cardiology. 02/12/2024 Encounter for screening for COVID-19 (ICD-10 - Z11.52) Covid screening is negative 03/18/2024 Chronic pain syndrome (ICD-10 - G89.4) Followed by endocrine Managed by Dr. Lantigua. 06/14/2024 Chronic pain syndrome (ICD-10 - G89.4) Followed by endocrine Managed by Dr. Lantigua. 06/30/2024 Presence of cardiac pacemaker (ICD-10 - Z95.0) Followed by cardiology. 07/21/2024 Chronic pain syndrome (ICD-10 - G89.4) Managed by Dr. Lantigua. 08/19/2024 Presence of cardiac pacemaker (ICD-10 - Z95.0) Followed by cardiology. 08/26/2024 Urinary tract infection, site not specified (ICD-10 - N39.0) Improving- will wait and watch but discussed basic hygiene 09/16/2024 Presence of cardiac pacemaker (ICD-10 - Z95.0) Followed by cardiology. 12/07/2024 Presence of cardiac pacemaker (ICD-10 - Z95.0) Followed by cardiology. 01/06/2025 Osteoarthritis of knee, unspecified (ICD-10 - M17.9) She is bakc on trcak for dsurgery. [facility] cardiology cleared her. Asked for ortho records. Says she is up for both kneeandthen the one nankle. She is doing her pT-BIGTIME! 01/11/2025 Chronic pain syndrome (ICD-10 - G89.4) Per clt on scheduled oxycodone 10 mg 4 times a day. 03/18/2024 Encounter for screening for COVID-19 (ICD-10 - Z11.52) Client reports she was positive for Covid 19 a few weeks ago, improving however still with fatigue. Per clt nausea was worst of symptoms and she lost weight, was not able to keep food down. Taking prn Zofran. Following with cardiology fpr elevated HR, she shares her metoprolol was increased to 50 mg daily. She has scheduled f/u with cardiology . 06/14/2024 Cocaine abuse with intoxication, uncomplicated (ICD-10 - F14.120) UTox IH + cocaine. Statretd to work with development coach, getting [facility]le[facility] and at [facility]. aware of triggers and actively working on reducing them. 06/30/2024 Chronic pain syndrome (ICD-10 - G89.4) Followed by endocrine Managed by Dr. Lantigua. 06/30/2024 Encounter for screening for COVID-19 (ICD-10 - [...] you are having concerning symptoms for COVID-19. Covid verbal screening negative. 07/21/2024 Encounter for screening for COVID-19 (ICD-10 - Z11.52) Covid verbal screening negative. 08/19/2024 Chronic pain syndrome (ICD-10 - G89.4) Managed by Dr. Lantigua. 09/16/2024 Chronic pain syndrome (ICD-10 - G89.4) Managed by Dr. Lantigua. 12/07/2024 Chronic pain syndrome (ICD-10 - G89.4) Per clt on scheduled oxycodone 10 mg 4 times a day. 01/06/2025 Presence of cardiac pacemaker (ICD-10 - Z95.0) asking for cards note 06/14/2024 Encounter for screening for COVID-19 (ICD-10 - [...] you are having concerning symptoms for COVID-19. 08/19/2024 Encounter for screening for COVID-19 (ICD-10 - Z11.52) Covid verbal screening negative. 09/16/2024 Encounter for screening for COVID-19 (ICD-10 [...] you are having concerning symptoms for COVID-19. 12/07/2024 Encounter for screening for COVID-19 (ICD-10 - Z11.52) Covid verbal screening negative. 01/06/2025 Mild intermittent asthma, uncomplicated (ICD-10 - J45.20) relaly off inhalers at present. Dpoing well 02/05/2024 Other 02/11/2024 Other 05/03/2024 Other 05/20/2024 Other 05/20/2024 Other 08/18/2024 Other NOTE : TIME SPE NT ON VISIT: 11/04/2024 Other 11/04/2024 Other 01/11/2025 Other Time spent in visit: minutes 02/05/2024 Other 8 minute call 02/12/2024 Other Diagnostic labs drawn as ordered per protocol [...] test results requiring immediate action. Labs drawn bymb: . Reviewed by: . 02/12/2024 Other Per client getting in house physical therapy and making progress, using walker and wheelchair. 03/18/2024 Other Time spent in visit:25 minutes 06/14/2024 Other 12 minute call 06/14/2024 Other 06/30/2024 Other Time spent in visit: 25 minutes 07/21/2024 Other Time spent in visit: 25 minutes 08/19/2024 Other Time spent in visit: 15 minutes 08/26/2024 Other Time spent in visit: 12 minutes She wants to defer mammo and colrectal for nmow-deal with knee first 09/16/2024 Other In the end plan to get her to repsite in next 24-48 hurs.Mother agreed to take her back temporarily byut tenuous 09/16/2024 Other 12/07/2024 Other Time spent in visit: 20 minutes 01/06/2025 Other Plan Of Treatment Pending Test Test Name Order Date EKG 01/27/2017 EKG 03/24/2019 HIV 1/2 ANTIGEN/ANTIBODY,FOURTH GENERATI ON W/RFL 01/02/2017 HEPATITIS PANEL, ACUTE W/REFLEX TO CONFI RMATION 01/02/2017 COMPREHENSIVE METABOLIC PANEL-[facility] 12/12 CHOLESTEROL, TOTAL 01/02/2017 CBC (INCLUDES DIFF/PLT) AUTO DIFF - NO P ATH REVIEW 01/02/2017 QUANTIFERON(R)-TB GOLD 10/21/2017 FECAL GLOBIN BY IMMUNOCHEMISTRY 09/03/19 23 FECAL GLOBIN BY IMMUNOCHEMISTRY 01/07/20 25 VALPROIC ACID 01/06/2025 CBC WITH AUTO DIFF 01/06/2025 URINE DRUG SCREEN 01/06/2025 THYROID PROFILE 01/06/2025 THYROID PROFILE 03/24/2019 TRICHOMONAS 03/31/2019 URINE CULTURE 10/03/2019 URINE CULTURE 09/14/2019 Marisela Screening Digital 09/12/2021 Marisela Screening Digital 09/03/2022 HEPATITIS A,B,C PROFILE 09/03/2022 Future Test Test Name Order Date VITAMIN D, 25-HYDROXY 09/12/2021 Next Appt Details Provider Name:Laila Molina, 01/26/2025 09:30:00 AM, [address] [place] [address] FOR [facility], [place], [place], [id number], Provider Name:Eva Lantigua, 02/24/2025 11:20:00 AM, [address] [place] [address], [place], [place], [id number], Insurance Providers Payer Name Payer Address Payer Phone Subscriber Number Group Number Insured Name Patient Relationship to Insured Coverage Start Date Coverage End Date [facility] [address] [place] [phone] [id number] Ld Mosley Self - patient is the insured 0 [place] Medicare Part [place] [employer] [facility] 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 Malignant neoplasm of unspecified ovary C56.9 Drug induced constipation (resolved 08/14) undefined Thyrotoxicosis, unspecified without thyr otoxic crisis or storm E05.90 Body mass index [BMI] 30.0-30.9, adult ( resolved 11/01/2023) undefined Body mass index [BMI] 27.0-27.9, adult Z 68.27 Bipolar I Disorder, PTSD, Opioid Use D/O , Cocaine Use D/O Surgical History Surgery Date(Month/Year) [place] [facility] [place] Right knee menisceal repair surgery 05/14 023 Left knee laproscopic tendon repair kay nstruction 04/2023 Total Laparoscopic Hysterectomy with Cedrick ateral Salpingo Oophorectomy 02/17/20 Hospitalization History Reason Date(Month/Year) [facility] 05[facility]2024 [place] [facility] [place] OD, Section [facility] and then to [facility] 07/2022 [facility] ~ Rt ovary mass [facility] operative no te-scanning Benign pathology 02/17/2020 [facility] [place], [place] with nausea, dc to home 08/12/19 [facility] ER, acute serous right o titis media; acute serous left otitis media. dc to home 05/23/19 section 02/04/19 [facility] Detox and psych
--- OUTSIDE RECORDS SUMMARY | 2025-01-16 12:29 | XMS_ITS | Patient Health Record ---
Author Organization [facility] Address [address] [place] [address] Care Team Providers Care Welding Teacher Name Role Phone Kenn Mujica Primary Care Provider [phone] Kenn Mujica MD Unavailable Unavailable Allergies Allergen [...] Orally Thre e times a day as needed; Duration: 30 days Active Nicotine Step 2 14 MG/24HR 1 patch to skin Transdermal Once a day; Duration: 30 day(s) 05/29/2014 Not-Taking ProAir HFA 108 (90 Base) MCG/ACT 2 puffs as needed Inhalation every 4 hrs; Duration: 1 Month Supply Active DuoNeb 0.5-2.5 (3) MG/3ML 3 ml Inhalation Dx 493.90 Four times a day; Duration: 30 days 05/29/2014 Active Motrin 800 MG 1 tablet Orally twic e a day as needed; Duration: 30 Active Nebulizer n/a as directed DX. 493. 90 as directed; Duration: as needed 05/29/2014 Active traZODone HCl 50 MG Orally Active Neurontin 800 MG 1 tablet Orally Thre e times a day as needed; Duration: 30 days Active CeleXA 20 mg 1 tablet Orally Once a day; Duration: 30 day(s) 04/03/2015 Active Compazine 25 mg 1 suppository as nee ded Rectal Twice a day prn; Duration: 7 days 02/26/2015 Active OxyIR 5 MG 1 capsule as needed Orally Once a day; Duration: 30 days 05/29/2014 Active Social History Tobacco Use: Social History Observation Description Date Details (start date - stop date) Current some da y smoker NA - NA Tobacco Use/Smoking Question Answer Notes Patient is a: current some day smoker Patient is a: current some day smoker Problems Problem Type SNOMED Code ICD Code Onset Dates Problem Status W/U Status Risk Notes Problem Impacted cerumen (90328411) Impacted cerumen (380.4) Active confirmed Problem Asthma (155006294) Asthma (493.90) Active confi rmed Problem Back pain (786917479) Back pain (724.5) Active confirmed Problem Smoking (95335045) Smoking (305.1) Active confi rmed Problem Degeneration of intervertebral disc (76045245) Degenerative disk disease (722.6) Active confirmed Problem Otalgia (597981782) Otalgia (388.70) Active confirmed Plan Of Treatment [...] Medicare [place] [address] [place] [phone] [id number] MelanyLd griggs Self - patient is the insured Medicaid [address] [place] [address] [phone] [id number] Ld Mosley Self - patient is the insured Medicaid [facility] [address] [place] [address] [id number] NOT MAGGIE Ld Mosley Self - patient is the insured Medical (General) History Medical History History ICD Code asthma Surgical History Surgery Date(Month/Year) tonsillectomy bilateral tubes septoplasty
== END 2025-01-16 15:48 | disposition home or self-care (01) ==
LOC: HO.HOS 11:35
PROVIDERS: Visit Provider Physician Assistant
DX: M17.0 Bilateral primary osteoarthritis of knee (principal)
CPT/HCPCS: 99214; G2211

== ENCOUNTER → 2025-01-16 11:36 | Outpatient (BNV) | payer OTHER, SELFPAY | PROVIDERS: Visit Provider Radiology Diagnostic Radiology | DX: M17.0 Bilateral primary osteoarthritis of knee (principal) | CPT/HCPCS: 73562 ==

== ENCOUNTER 2025-03-01 07:33 | Emergency (ER) | payer OTHER, SELFPAY ==
[2025-03-01 07:57] VITALS: BP 117/78; BP 130/70; PULSE 80; PULSE 81; RESP 16; TEMP 36.6; O2SAT 98; BMI 20.2
--- NOTE | 2025-03-01 08:19 | ED_ITS ---
HPI - General Adult General Chief complaint: Overdose Stated complaint: OD,NARCAN GIVEN BY BYSTANDERS W/GOOD RESULT Time Seen by Provider: 03/01/25 08:07 Source: patient and EMS Mode of arrival: EMS Limitations: no limitations History of Present Illness ED Provider: Angela John PA-C HPI narrative: Patient is a 50 year old assigned female at with a history of PTSD, OUD, and bipolar disorder presenting to the emergency department today with after an accidental overdose. Patient states that she snorted half a bag of heroin today. EMS states that a bystander found the patient and administered 8mg of narcan and the patient awoke. Patient states that she does not have any complaints at this time. No thoughts of hurting herself or others. Patient denies any other complaints at this time. Exacerbating factors: none Associated symptoms: denies other symptoms Treatments prior to arrival: other (Narcan by bystander - good effect.) Related Data Home Medications ?Medication ?Instructions ?Recorded ?Confirmed methadone 10 mg/mL oral concentrate 15 mg PO DAILY 03/0612/28/24 cyclobenzaprine 5 mg tablet 5 mg PO BEDTIME 12/28/24 0 12/28/24 oxycodone 10 mg tablet 15 mg PO QID severe pain (sc megan 12/28/24 12/28/24 score 7-10) Previous Rx's ?Medication ?Instructions ?Recorded aripiprazole 2 mg tablet (Abilify) 2 mg PO BEDTIME 30 days #30 tabs 11/30/24 celecoxib 200 mg capsule 200 mg PO BID 30 days #60 ca ps 11/30/24 divalproex 500 mg tablet,extended 1,000 mg (2 x 500 mg ) PO BEDTIME 11/30/24 release 24 hr 30 days #60 tabs divalproex 500 mg tablet,extended 500 mg PO DAILY 30 d ays #30 tabs 11/30/24 release 24 hr duloxetine 30 mg capsule,delayed 30 mg PO BID 30 days #60 caps 11/30/24 release levetiracetam 750 mg tablet 750 mg PO BID 30 days #60 tabs 11/30/24 levocarnitine 500 mg tablet 500 mg PO BID 30 days #60 tabs 11/30/24 (L-Carnitine) ondansetron 4 mg disintegrating 4 mg translingual Q6H PRN Nausea 11/30/24 tablet 30 days #30 tabs polyethylene glycol 3350 17 gram 17 g PO DAILY PRN con tinued 11/30/24 oral powder packet Constipation 30 days #30 ea trazodone 150 mg tablet 150 mg PO BEDTIME 30 days #3 0 tabs 11/30/24 Allergies Allergy/AdvReac Type Severity Reaction Status Date / Time acetaminophen (From Vicodin) Allergy Severe Anaphylaxis Verified 03/01/25 08:01 hydrocodone (From Vicodin) Allergy Severe Anaphylaxis Verified 03/01/25 08:01 amoxicillin (AMOXICILLIN) Allergy Intermediate RASH Verified 03/01/25 08:01 Penicillins (PENICILLINS) Allergy Intermediate RASH Verified 03/01/25 08:01 topiramate (From Topamax) AdvReac Unknown Unknown Verified 03/01/25 08:01 lamictal AdvReac Unknown Unknown Uncoded 03/01/25 08:01 Review of Systems Constitutional: Constitutional: Reports as per HPI Eyes: Eyes: Reports as per HPI ENT: Reports as per HPI Cardiovascular: Cardiovascular: Reports as per HPI Respiratory: Respiratory: Reports as per HPI Gastrointestinal: Gastrointestinal: Reports as per HPI Genitourinary: Genitourinary: Reports as per HPI Musculoskeletal: Musculoskeletal: Reports as per HPI Integumentary/Breasts: Skin/Breast: Reports as per HPI Neurologic: Reports as per HPI Psychiatric: Psychiatric: Reports as per HPI Endocrine: Endocrine: Reports as per HPI Hematologic/Lymphatic: Hematologic/Lymphatic: Reports as per HPI Allergic/Immunologic: Allergic/Immunologic: Reports as per HPI PMFSH Past Medical History Attestation statement: The following information was validated with the patient. Source: old records reviewed and nursing notes reviewed Medical History Fracture of medial malleolus, left, closed Closed left fibular fracture Osteoarthritis of knees, bilateral Bipolar I disorder Headache, migraine Cocaine use disorder Opioid use disorder, moderate, in early remission, on maintenance therapy, dependence Bipolar disorder with depression PTSD (post-traumatic stress disorder) Cardiac pacemaker in situ Opioid use disorder Seizure disorder Clavicle fracture Narcotic abuse Seizures Asthma COPD (chronic obstructive pulmonary disease) Surgical History History of ankle surgery (08/05/23) H/O right knee surgery H/O left knee surgery Social History Social History Household Members: Family Household Members Other:: Mother, father, daughter Housing: House Do you presently have visiting nurse or other home services: No Unable to assess alcohol history related to: Unknown Alcohol intake: never Comment: n/a Patient Tobacco Use Status: Current everyday Tobacco user Tobacco use type: Cigarette Cigarettes Per Day: 6 Smoked in Last 30 Days: No e-Cigarette/Vaping Use: Currently Using Second Hand Smoke Exposure: No Use of substances other than those prescribed or required for medical reasons: Yes Substance Use Type: Heroin Advance Directives: Yes Advance Directives on File: Yes Advance Directives Date on File: 09/29/23 service: No Sexual orientation: Straight/Heterosexual Physical Exam ED Vital Signs: Vital Signs - 24 hr 03/01/25 07:57 03/01/25 12:15 Temperature 97.8 F 97.8 F Pulse Rate 81 81 Respiratory Rate 16 16 Blood Pressure 117/78 117/78 Pulse Oximetry 98 98 Oxygen Delivery Method Room Air Room Air BMI result Body Mass Index 20.2 Const General: cooperative, no acute distress, alert and awake Nutritional Appearance: well nourished Orientation/consciousness: patient oriented x3 HENMT Head: Yes normal to inspection and Yes atraumatic Ears: hearing grossly normal bilaterally and external ears normal General nose exam: Normal external nose present, no nasal discharge noted and no epistaxis Face and sinus: Yes normal facial exam, No abrasion and No laceration Mouth: Normal oral and palatal mucosa present, no drooling and no muffled voice Eyes General: appearance normal, both eyes and all related structures Periorbital: periorbital findings normal Eyelids: Yes eyelids normal Conjunctivae: conjunctivae normal Pupils: Equal, round and reactive pupils present EOM: EOMs intact bilaterally Neck Neck: Yes normal visual inspection and Yes full ROM Resp Effort & Inspection: normal respiratory effort and able to speak in complete sentences Neuro General: patient oriented x3, moves all extremities and CN's II-XI intact bilaterally Cranial nerves: Yes Equal, round and reactive pupils present Cognition (Neuro): normal cognition Extrem General: Yes normal to inspection, Yes full ROM and Yes capillary refill normal Psych Appearance: grossly normal Mental Status: mental status grossly normal Affect: normal affect Attitude: cooperative Thought process: Normal thought process present Thought content: Normal thought content present Insight: Good insight present (Psych) Medications Administered Discontinued Medications Generic Name Dose Route Start Last Admin Trade Name Job PRN Reason Stop Dose Admin Lorazepam 1 mg 03/01/25 08:29 03/01/25 08:36 Lorazepam 1 Mg Tablet PO 03/01/25 08:30 1 mg ONCE ONE Administration Naloxone HCl 8 mg 03/01/25 11:47 03/01/25 12:24 Naloxone Hcl Nasal Take Home 4 Mg Peel NOSTRILALT 03/01/25 11:48 Not Given ONCE ONE Medical Decision Making Medical Decision Making MDM Narrative: Patient is a 50 year old assigned female at with a history of PTSD, OUD, and bipolar disorder presenting to the emergency department today with after an accidental overdose. Patient's physical exam was unremarkable. Patient met with the CARE Recovery team and the patient requested respite placement. Unfortunately, at this time, there is no respite placements available. Patient stated that she felt comfortable discharging home to her mother's home, would take the take home narcan, and did not want to be helped with methadone or suboxone at this time. I explained my physical exam findings as well as all test results to the patient. I answered all questions asked by the patient. I stressed the importance of the patient taking her medication as directed (either prescribed or as the over the counter packaging recommends). I stressed the importance of the patient following up with her primary care provider. I stresse d the importance of the patient returning to the emergency department immediately if her symptoms were to worsen or if she were to develop any dizziness, shortness of breath, difficulty breathing, chest pain, blurry vision, loss of vision, nausea, vomiting, abdominal pain, fever, chills, back pain, or any other complaints. Patient verbalized agreement and understanding with this treatment plan and discharge. Differential Diagnosis Differential Diagnoses: The differential diagnosis associated with the presentation includes Overdose Accidental overdose Opiate use disorder Admission/Observation Consideration of admission/observation: Escalation of care including admission/observation considered Patient would have been admitted to the hospital had her work up had any findings where hospital admission was appropriate and her clinical presentation warranted hospital admission. Consult Healthcare Provider Management of the patient was discussed with: Behavioral Health Provider (spoke with the CARE team as noted in the MDM Rationale portion of this note. ) Independent Historian Clinical information obtained from an independent historian. History obtained from or confirmed by: EMS (EMS provided additional history and confirmed the history provided by the patient. ) Discharge Plan Discharge Clinical Impression: Overdose Patient Disposition: Home, Self-Care Instructions: Adult Overdose (ED) Additional Instructions: You were seen in our Emergency Department for an overdose today. You received narcan in order to reverse the effects of overdose. Narcan only lasts about 45 min to 1 hour in the system. You may have been given narcan to take home with you today, please keep it near you if you are going to use again, so others can use it if needed.? The number one risk for fatal overdose is using alone [employer] is a 02/02 hotline where you can be on the phone with someone while you use, and they can call for help if they suspect an overdose: [phone] Things to look out for when you leave include severe vomiting or diarrhea, headaches, muscle cramps, fever, coughing, chest pain, or if you feel so short of breath you cannot walk to the bathroom. Please seek care and return any time for worsening symptoms.? If you decide you want to stop or cut down on how much you?re using, please call the numbers on the list provided to you or you can come to our outpatient Addiction Treatment office [facility] (M-F 9am-5p) [address] [place] [address], [facility] [address] [place], [place]. [phone] IF you are prescribed home medications and/or you are taking over the counter medications at home - it is very important you continue to do so as prescribed / directed unless told otherwise. Follow up with a primary care provider. Return to the emergency department immediately if your symptoms worsen or if you develop any numbness, tingling, dizziness, shortness of breath, difficulty breathing, chest pain, blurry vision, loss of vision, nausea, vomiting, abdominal pain, fever, chills, back pain, or any other complaints. If you do not have a primary care provider - call any of the below numbers to establish and follow up with a primary care provider. [facility] Primary Care ([place]) [phone] [place] [address], [address] [facility] Primary Care ([address]) [phone] [place] [address], [address] [facility], [address] [facility] Primary Care ([address]) [phone] [place] [address], [address] [facility], [address] [facility] Primary Care ([place]) [phone] [place] [address] [facility], [address] [facility] Family Medicine [phone] [address] [facility], [address] Please see the information below about our Patient Portal. If you are not yet enrolled in the [facility] Patient Portal, you will receive an enrollment email invitation following your visit to any [facility] setting. You may also self-enroll in the Patient Portal by visiting our website: [email or web address] The following information is required to access the Patient Portal: - Your [facility] Medical Record Number - Your personal home email address (must match what is in your electronic medica l record, Registration staff can assist with this) - Name - Date of Capabilities of the Patient Portal: - Message some providers - View upcoming appointments - Access your health summary, medical history, and visit history - View current conditions and allergies - View procedure and lab results - View your medications, including guidelines, side effects, and precautions - Complete pre-appointment questionnaires requested by your provider - Ready summary reports of your office visits and procedures To access the Patient Portal Mobile Scooby, follow these directions: - Search Prismatic in the Scooby Store or Google Play Store - Download the Scooby - Search for [facility] - Enter your login/password Prescriptions: No Action methadone 10 mg/mL Concentrate 15 mg PO DAILY aripiprazole [Abilify] 2 mg Tablet 2 mg PO BEDTIME 30 Days Qty: 30 0RF celecoxib 200 mg capsule 200 mg PO BID 30 Days Qty: 60 0RF divalproex 500 mg tablet extended release 24 hr 1,000 mg PO BEDTIME 30 Days Qty: 60 0RF divalproex 500 mg Tablet Extended Release 24 Hr 500 mg PO DAILY 30 Days Qty: 30 0RF levetiracetam 750 mg tablet 750 mg PO BID 30 Days Qty: 60 0RF ondansetron 4 mg Tablet,Disintegrating 4 mg translingual Q6H PRN (Reason: Nausea) 30 Days Qty: 30 0RF polyethylene glycol 3350 17 gram Powder In Packet 17 g PO DAILY PRN (Reason: continued Constipation) 30 Days Qty: 30 0RF Rx Instructions: hold for loose stool trazodone 150 mg tablet 150 mg PO BEDTIME 30 Days Qty: 30 0RF duloxetine 30 mg capsule,delayed release(DR/EC) 30 mg PO BID 30 Days Qty: 60 0RF L-Carnitine 500 mg tablet 500 mg PO BID 30 Days Qty: 60 0RF Rx Instructions: must administer with a meal/food cyclobenzaprine 5 mg tablet 5 mg PO BEDTIME oxycodone 10 mg tablet 15 mg PO QID Rx Instructions: Partial Fill upon patient request. Interventions: ED Discharge Assessment Last Done: 03/01/25 12:15 Discharge Date/Time: 03/01/25 12:25 Print Language: Guinean
--- NOTE | 2025-03-01 08:28 | PC.NURSE ---
Pt comes in after bystanders found her down and was given 8mg Narcan, pt is A/O on arrival to ED, pt reporting she took .5 of a baggie of heroin she reports snorting, denies other drug use or ETOH. Pt reporting she has a place to stay and access to food at this time. Denies SI/HI. auto overhauler completed by [facility], they report that her belongings have been gone through, remain at bedside per Security, pt is changed into hospital attire.
--- OUTSIDE RECORDS SUMMARY | 2025-03-01 10:15 | XMS_ITS | Encounter Summary ---
Author Organization [facility] Address [address] [place] [address] Care Team Providers Care [place] Guide Name Role Phone Physician, Pcp Unknown Primary Care Provider Olga vailable Encounter Details Date Type Department Care Team (Late st Contact Info) Description 06/10/2024 Lab Requisition [facility] [address] [facility] [place] [address] Magen Lantigua MD [address] [place] [address] Prediabetes; Chronic pain syndrome Social History Tobacco [...] SST tube (06/10/2024 1:30 PM EST) Pathologist [facility] Extra Tube Hold for add-ons. 06/10/2024 7:01 PM EST [facility] Comment:Auto resulted. Blood Venous blood specimen / Unknown 06/10/2024 1:30 PM EST 06/10/2024 5:16 PM EST Magen Lantigua MD LAB BLOOD ORDERABLES Final Re sult Performing Organization Address City/[facility]/ZIP Co de Phone Number [facility] [address] [place] [address], [place] [phone] * (ABNORMAL) Glucose, random (06/10/2024 1:30 PM EST) [facility] Glucose 118(H) 70 - 100 mg/dL LAB CHEMISTRY METHOD 06/10/2024 5:33 PM EST [facility] Blood Venous blood specimen / Unknown 06/10/2024 1:30 PM EST 06/10/2024 5:16 PM EST Magen Lantigua MD LAB BLOOD ORDERABLES Final Re sult Performing Organization Address [facility]/ZIP Co de Phone Number [facility] [address] [place] [address], [place] [phone] * Lipid panel with reflex to direct LDL (06/10/2024 1:30 PM EST) [facility] Cholesterol 192 0 - 200 mg/dL LAB CHEMISTRY METHOD 06/10/2024 5:50 PM EST [facility] Triglycerides 61 0 - 150 mg/dL LAB CHEMISTRY METHOD 06/10/2024 5:50 PM EST [facility] HDL 91 >=40 mg/dL LAB CHEMISTRY METHOD 06/10/2024 5:50 PM EST [facility] LDL Calculated 89 0 - 100 mg/dL LAB CHEMISTRY METHOD 06/10/2024 5:50 PM EST [facility] VLDL Cholesterol Fabian 12.2 mg/dL LAB CHEMISTRY METHOD 06/10/2024 5:50 PM EST [facility] Non HDL Chol. (LDL+VLDL) 101 <145 mg/dL LAB CHEMISTRY METHOD 06/10/2024 5:50 PM EST [facility] Chol/HDL Ratio 2.1 0.0 - 4.4 LAB CHEMISTRY METHOD 06/10/2024 5:50 PM EST [facility] Blood Venous blood specimen / Unknown 06/10/2024 1:30 PM EST 06/10/2024 5:16 PM EST Magen Lantigua MD LAB BLOOD ORDERABLES Final Re sult Performing Organization Address [facility]/ZIP Co de Phone Number [facility] [address] [place] [address], [place] [phone] * Hemoglobin A1c (06/10/2024 1:30 PM EST) Hemoglobin A1C 4.8 <6.5 % LAB CHEMISTRY METHOD 06/12/2024 11:38 AM EST [facility] Mean Bld Glu Estim. 91 mg/dL LAB CHEMISTRY METHOD 06/12/2024 11:38 AM [facility] Blood Venous blood specimen / Unknown 06/10/2024 1:30 PM EST 06/10/2024 5:16 PM EST Magen Lantigua MD LAB BLOOD ORDERABLES Final Re sult [facility] [address] [place] [address], [place] [phone] * Valproic acid level, total (06/10/2024 1:30 PM EST) Valproic Acid, Total 72 50 - 100 mcg/mL LAB CHEMISTRY METHOD 06/10/2024 5:33 PM EST [facility] Blood Venous blood specimen / Unknown 06/10/2024 1:30 PM EST 06/10/2024 5:16 PM EST us Magen Lantigua MD LAB BLOOD ORDERABLES Final Re sult [facility] [address] [place] [address], documented in this encounter Visit Diagnoses Diagnosis Prediabetes Other abnormal glucose Chronic pain syndrome documented in this encounter Care Teams [place] Guide Relationship Specialty Start Date End Date Physician, Pcp Unknown PCP - General 01/06/25 documented as of this encounter
--- OUTSIDE RECORDS SUMMARY | 2025-03-01 10:15 | XMS_ITS | Patient Health Record ---
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 Name Role Phone Kenn Mujica Primary Care [...] W/U Status Risk Notes Problem Impacted cerumen (06569230) Impacted cerumen (380.4) Active confirmed Problem Asthma (896098522) Asthma (493.90) Active confi rmed Problem Back pain (431205530) Back pain (724.5) Active confirmed Problem Smoking (67819497) Smoking (305.1) Active confi rmed Problem Degeneration of intervertebral disc (11465046) Degenerative disk disease (722.6) Active confirmed Problem Otalgia (368630216) Otalgia (388.70) Active confirmed Plan Of Treatment [...] B [address] [place] [phone] MelanyLd griggs Self - patient is the insured Medicaid [address] [place] [address] [phone] [id number] Ld Mosley Self - patient is the insured Medicaid [facility] [address] [place] [address] [id number] NOT MAGGIE Ld Molsey Self - patient is the insured Medical (General) History Medical History History ICD Code asthma Surgical History Surgery Date(Month/Year) tonsillectomy bilateral tubes septoplasty
--- OUTSIDE RECORDS SUMMARY | 2025-03-01 10:15 | XMS_ITS | Patient Health Record ---
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 Name Role Phone Magen Lantigua Primary Care Provider Laila Molina Unavailable [phone] [facility], Nursing Unavailable [phone] Beverly Phan Unavailable [phone] Allergies Allergen (clinical drug ingredient) Drug/Non Drug Allergy documented on EMR Reaction Allergy Type Onset Date Status amoxicillin amoxicillin anaphylaxis Drug Allergy A ctive topiramate Topamax headache Drug Allergy Active lamotrigine LaMICtal unknown Drug Allergy Activ e Keflex itchy Drug Allergy Active Results Component Value Reference Range Notes Drug Toxicology Reviewed date:06/14/2024 02:32:19 PM Interpretation:Pos for opiates, methadone, oxy, and cocaine. Performing Lab: Notes/Report: Pos for opiates, methadone, oxy, and cocaine. FECAL GLOBIN BY IMMUNOCHEMIS TRY Reviewed date:01/20/2025 11:33:02 AM Interpretation:Positive Performing Lab:NL2, [facility] [id number] Mahogany Delgado Notes/Report: FASTING: UNKNOWN FECAL GLOBIN BY IMMUNOCHEMISTRY SEE NOTE FECAL GLOBIN BY IMMUNOCHEMISTRY Micro Number: [id number] Test Status: Final Specimen Source: Insure () fobt test card Specimen Quality: Adequate Fecal Globin: Detected Reference Range: Not Detected NOTE: Approved collection includes sample of toilet water adjacent to stool. Other methods of collection such as stool transferred from diaper, bedpan, or commode to toilet water may lead to inaccurate results. VALPROIC ACID Reviewed date:01/18/2025 10:35:54 AM Interpretation:54.5 Performing Lab: Notes/Report: 54.5 CBC WITH AUTO DIFF Reviewed date:01/18/2025 12:26:49 AM Interpretation:Hgb 11.5 Performing Lab: Notes/Report: Hgb 11.5 HEMATOCRIT 34 HEMOGLOBIN 11.5 MCV 84 PLT COUNT 172 RBC 3.9 URINE DRUG SCREEN Reviewed date:01/18/2025 12:28:40 AM Interpretation:Negative Performing Lab: Notes/Report: Negative THYROID PROFILE Reviewed date:01/18/2025 12:27:52 AM Interpretation:Normal Performing Lab: Notes/Report: Normal TSH CASCADE 0.4 LIPID PANEL WITH REFLEX TO D IRECT [...] (THC) Screen, Ur Negative Negative Specimens from patients taking pantoprazole sodium (Protonix) have been shown to produce false positive results. Oxycodone Screen, Ur Positive Negative Fentanyl, Ur Negative Negative Reason For Referral Reason Marilia Daly [facility], [address] [place] [address] P: [phone] F: [phone] [place] Shower Mat #1 Cane #1 Hand-held shower head #1 Shower Chair #1 Diagnosis 1 Unspecified fracture of unspecified femur, initial encounter for closed fracture (S72.90XA) Diagnosis 2 Osteoarthritis of kn ee, unspecified (M17.9) Referral Organization [facility] Referring Provider First Name Magen Referring Provider Last Name Grzegorz Referring Provider Speciality Internal M edicine Referred Provider Fabricio Ross Medical Equipment General Notes Angela Martinez 02:45:37 PM > faxed to Angelika[facility]CJuan Paris 10/17/2024 03:22:34 PM > pt. received Referral Priority Routine Reason Marilia Daly l Supply, [address] [facility] [address] P: [phone] F: [phone] Disposable incontinence bed pad 1/day #30 with 11 refills Pull up Briefs size Large, 1/day #30 with 11 refills Diagnosis 1 Incontinence without sensory awareness (N39.42) Diagnosis 2 Nocturia (R35.1) Referral Organization [facility] Referring Provider First Name Magen Referring Provider Last Name Grzegorz Referring Provider Speciality Internal M edicine Referred Provider Fabricio Ross Medical Equipment General Notes Angela Martinze 02:48:48 PM > Faxed to L[facility]CJuan Paris 10/17/2024 03:22:46 PM > pt. received Referral Priority Routine Reason [facility], [address] [place] [address] Dr Zach Solares, [place] [address] P: [phone] F: [phone] Positive FIT test-needs colonoscopy. She is supposed to have 2 major joint surgeries this year so the sooner we can get this done, the better. She prefers [place] but I will take whoever can do her colon first! Referral Organization [facility] Referring Provider First Name Magen Referring Provider Last Name Grzegorz Referring Provider Speciality Internal edicine Referred Provider [facility], Gastroenterology Referred Provider Specialty Gastroentero logy General Notes Angela Martinez 05/2025 11:52:13 AM > Faxed to [facility] Travis Patel Katelyn 02/07/2025 11:23:26 AM > left vm checking on appt status Referral Priority Routine Referral Appointment Date 05/31/2025 Medications Medication SIG (Take, Route, Frequency, Duration) Notes Start Date End Date Status Depakote ER 500 mg 1 tab(s) in am 2 tabs at bedtime orally twice a day prescribed by neurologist Active traZODone 150 mg one tablet orally nightly at bedtime Active methadone 10 mg/mL 5mg orally daily per clt on 8 mg a day Active Ondansetron Hydrochloride 4 mg 1 tab(s) orally every 6 hours as needed for nausea for 14 days Active MiraLax - as directed;one scoop in 8 oz liquid orally once a day for 30 days 12/01/2023 Unknown Rhinocort Allergy 32 mcg/inh 1 spray(s) in each nostril once a day for 30 days 09/16/2024 Unknown Trelegy Ellipta 200 mcg-62.5 mcg-25 mcg/inh INHALE 1 PUFF BY MOUTH DAILY for 30 Active DULoxetine Hydrochloride 30 mg 1 cap(s) orally 2 times a day for 30 days Active celecoxib 200 mg 1 cap(s) orally twice a day reopalces indomethacin diue to insuranc elimitation Active baclofen 5 mg 1 tab(s) orally twice a day for 30 days 01/11/2025 Active ARIPiprazole 5 mg 1 tab(s) orally daily at bedtime Active LORazepam 0.5 mg 1 tab(s) orally prior to flying for 7 days To be taken before flights for anxiety 01/23/2025 Not-Taking metoprolol 50 mg 1 tab(s) orally once a day in evening Unknown Diclofenac Sodium Topical 1% as directed apply to knee 4 times a day for 15 days Unknown OxyCODONE Hydrochloride 15 mg 1 tab(s) orally every 6 hours for 14 days for 02/16/25 Partial Fill upon Patient Request 02/14/2025 Active Narcan 4 mg/0.1 mL 4 mg intranasally once 03/24/2019 Unknown ProAir HFA 90 mcg/inh 2 puffs inhaled every 6 hours PRN wheezing Unknown mometasone 100 mcg/inh as directed inhaled 2 times a day for 30 days Unknown Keppra 750 mg 1 tab(s) orally 2 times a day for 30 days prescribed by neuro Active Immunizations Vaccine Route Administration Date Status Comme [...] 05/18/2020 Administered Tdap IM Intramuscular 10/30/2023 Administered [facility] [id number] Hepatitis B (20 or more) IM Intramuscular 10/30/2023 Administered [facility] [id number] Hepatitis A IM Intramuscular 10/30/2023 Administered 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) Active confirmed Problem Thyrotoxicosis (62483687) Thyrotoxicosis, unspecified without thyrotoxic crisis or storm (E05.90) Active confirmed with [facility] Problem Vitamin D deficiency (14587507) Vitamin D deficiency, unspecified (E55.9) Active confirmed Problem Overweight (616401505) Overweight (E66.3) Active confirmed Problem Cocaine abuse with intoxication, uncomplicated (F14.120) Active confirmed Problem Tobacco user (911141332) Nicotine dependence, unspecified, uncomplicated (F17.200) Active confirmed Problem Bipolar affective disorder, currently depressed, moderate (294434394) Bipolar disorder, current episode depressed, moderate (F31.32) Active confirmed Problem Bipolar disorder (91778457) Bipolar disorder, unspecified (F31.9) Active confirmed Followed by [facility] Problem Anxiety disorder (376149303) Anxiety disorder, unspecified (F41.9) Active confirmed Problem Posttraumatic stress disorder (07310960) Post-traumatic stress disorder, chronic (F43.12) Active confirmed Followed by [facility] Problem Epilepsy (56626055) Epilepsy, unspecified, not intractable, without status epilepticus (G40.909) [facility] Chronic migraine without aura, non-refractory (disorder) (630563456228245 ) Migraine without aura, not intractable, without status migrainosus (G43.009) [facility] Problem Insomnia (105871729) Insomnia, unspecified (G47.00) Active confirmed Followed by [facility] Problem Polyneuropathy (15275753) Polyneuropathy in diseases classified elsewhere (G63) Active confirmed Problem Chronic pain syndrome (686829135) Chronic pain syndrome (G89.4) Active confirmed Followed by endocrine Problem Chronic sinusitis (76627174) Chronic sinusitis, unspecified (J32.9) Active confirmed Problem Mild intermittent asthma (778996305) Mild intermittent asthma, uncomplicated (J45.20) Active confirmed Problem Osteoarthritis of knee (613117011) Osteoarthritis of knee, unspecified (M17.9) Active confirmed Problem Backache (582634983) Dorsalgia, unspecified (M54.9) Active confirmed Problem Incontinence without sensory awareness (191240505) Incontinence without sensory awareness (N39.42) Active confirmed Problem Menopause (982540671) Menopausal and female climacteric states (N95.1) Active confirmed s/p oophorectomy for ovarian cancer Problem Abnormal feces (646376503) Other fecal abnormalities (R19.5) Active confirmed Problem Closed fracture of femur (97957695) Unspecified fracture of unspecified femur, initial encounter for closed fracture (S72.90XA) Active confirmed Problem High risk drug monitoring status (201764834) penitentiary (current) use of opiate analgesic (Z79.891) Active confirmed Problem Hysterectomy (592693430) Acquired absence of both cervix and uterus (Z90.710) 2019 Active confirmed February 27, 2020 [facility]: Benign Ovarian cysts, Total lap hyst, bilateral sa;pingo-oopho rectomy, 6 week uterus, complex ovarian mass on RT Specimens: uterus, cervix, bilateral Fallopian tubes and ovariesq Problem Cardiac pacemaker in situ (993841984) Presence of cardiac pacemaker (Z95.0) Active confirmed Problem Artificial knee joint present (625247300741) Presence of unspecified artificial knee joint (Z96.659) Active confirmed Problem Dependence on wheelchair (790825783) Dependence on wheelchair (Z99.3) Active confirmed Problem Body mass index 20-24 - normal (822413850) Body mass index [BMI] 20.0-20.9, adult (Z68.20) Active confirmed Problem Cocaine abuse (45285744) Cocaine abuse, uncomplicated (F14.10) Active confirmed Problem Non-toxic multinodular goiter (56555052) 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) Inactive confirmed Problem Tobacco user (101080072) Nicotine dependence, cigarettes, uncomplicated (F17.210) Inactive confirmed Problem Opioid abuse (9669340) Opioid abuse, uncomplicated (F11.10) Remission phase confirmed Problem Drug-induced constipation (33649946) Drug induced constipation (K59.03) Problem resolved confirmed Problem Body mass index 30+ - obesity (160685292) Body mass index [BMI] 30.0-30.9, adult (Z68.30) Problem resolved confirmed Vital Signs Temperature 97.3 degrees Fahrenheit 01/06/2025 Blood pressure diastolic 70 01/06/2025 Oximetry 97 01/06/2025 Height 71 in 01/06/2025 Blood pressure systolic 107 01/06/2025 Weight 163.8 lbs 01/06/2025 BMI 22.84 kg/m2 01/06/2025 Encounters Encounter Location Date Provider Diagnosis [facility] [id number] 03/18/2024 Laila Molina Bipolar disorder, current episode depressed, mild F31.31 ; Insomnia, unspecified G47.00 ; Post-traumatic stress disorder, chronic F43.12 ; Epilepsy, unspecified, not intractable, without status epilepticus G40.909 ; Anxiety disorder, unspecified F41.9 ; Presence of cardiac pacemaker Z95.0 ; Opioid abuse, uncomplicated F11.10 ; Chronic pain syndrome G89.4 and Encounter for screening for COVID-[address] [id number] 06/10/2024 Nursing [facility] Encounter for screening, unspecified Z13.9 [facility] [address] [place] [id number] 06/14/2024 Magen Lantigua Encounter for screening for COVID-19 Z11.52 ; Osteoarthritis of knee, unspecified M17.9 and Opioid abuse, uncomplicated F11.[address] [id number] 06/14/2024 Laila Molina Bipolar disorder, current episode [...] and Encounter for screening for COVID-[address] [place] [id number] 06/30/2024 Madisone Tracy Cocaine abuse with intoxication, uncomplicated F14.120 ; Bipolar disorder, current episode depressed, moderate F31.32 ; Opioid abuse, uncomplicated F11.10 ; Insomnia, unspecified G47.00 ; Post-traumatic stress disorder, chronic F43.12 ; Epilepsy, unspecified, not intractable, without status epilepticus G40.909 ; Anxiety disorder, unspecified F41.9 ; Presence of cardiac pacemaker Z95.0 ; Encounter for screening for COVID-19 Z11.52 and Chronic pain syndrome G89.[address] [place] [id number] 07/21/2024 Madisone Tracy Cocaine abuse with intoxication, uncomplicated F14.120 ; Opioid abuse, uncomplicated F11.10 ; Bipolar disorder, current episode depressed, moderate F31.32 ; Insomnia, unspecified G47.00 ; Post-traumatic stress disorder, chronic F43.12 ; Epilepsy, unspecified, not intractable, without status epilepticus G40.909 ; Anxiety disorder, unspecified F41.9 ; Presence of cardiac pacemaker Z95.0 ; Chronic pain syndrome G89.4 and Encounter for screening for COVID-[address] [place] [id number] 08/19/2024 Madisone Tracy Cocaine abuse with intoxication, uncomplicated F14.120 ; Opioid abuse, uncomplicated F11.10 ; Bipolar disorder, current episode depressed, moderate F31.32 ; Insomnia, unspecified G47.00 ; Post-traumatic stress disorder, chronic F43.12 ; Epilepsy, unspecified, not intractable, without status epilepticus G40.909 ; Anxiety disorder, unspecified F41.9 ; Presence of cardiac pacemaker Z95.0 ; Chronic pain syndrome G89.4 and Encounter for screening for COVID-[address] [place] [id number] 08/26/2024 Magen Lantigua Encounter for screening for COVID-19 Z11.52 ; Osteoarthritis of knee, unspecified M17.9 ; Chronic pain syndrome G89.4 ; Mild intermittent asthma, uncomplicated J45.20 ; Cocaine abuse, uncomplicated F14.10 ; Dependence on wheelchair Z99.3 ; penitentiary (current) use of opiate analgesic Z79.891 ; Influenza due to identified novel influenza A virus with other respiratory manifestations J09.X2 and Urinary tract infection, site not specified N39.[address] [id number] 09/16/2024 Magen Lantigua Encounter for screening for COVID-19 Z11.52 ; Cocaine abuse, uncomplicated F14.10 ; Chronic pain syndrome G89.4 ; Epilepsy, unspecified, not intractable, without status epilepticus G40.909 ; Osteoarthritis of knee, unspecified M17.9 ; Presence of unspecified artificial knee joint Z96.659 ; Bipolar disorder, current episode depressed, moderate F31.32 and Chronic sinusitis, unspecified J32.[address] [id number] 09/16/2024 Laila Molina Bipolar disorder, current episode [...] and Encounter for screening for COVID-19 [address]11.[address] [id number] 12/07/2024 Laila Molina Bipolar disorder, current episode [...] and Encounter for screening for COVID-[address] [id number] 01/06/2025 Magen Lantigua Encounter for screening for COVID-19 Z11.52 ; Chronic pain syndrome G89.4 ; 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 ; [...] Z95.0 and Mild intermittent asthma, uncomplicated J45.[address] [place] [id number] 01/11/2025 Laila Molina Bipolar disorder, current episode depressed, moderate F31.32 ; Cocaine abuse with intoxication, uncomplicated F14.120 ; Opioid abuse, uncomplicated F11.10 ; Insomnia, unspecified G47.00 ; Post-traumatic stress disorder, chronic F43.12 ; Epilepsy, unspecified, not intractable, without status epilepticus G40.909 ; Anxiety disorder, unspecified F41.9 ; Presence of cardiac pacemaker Z95.0 and Chronic pain syndrome G89.[address] [place] [id number] 01/31/2025 Laila Molina Bipolar disorder, current episode depressed, moderate F31.32 ; Cocaine abuse with intoxication, uncomplicated F14.120 ; Opioid abuse, uncomplicated F11.10 ; Insomnia, unspecified G47.00 ; Post-traumatic stress disorder, chronic F43.12 ; Epilepsy, unspecified, not intractable, without status epilepticus G40.909 ; Anxiety disorder, unspecified F41.9 ; Presence of cardiac pacemaker Z95.0 and Chronic pain syndrome G89.[address] [id number] 03/03/2024 Magen Lantigua Chronic pain syndrom e G89.[address] [id number] 03/17/2024 Magen Balder Chronic pain syndrom e G89.[address] [id number] 03/17/2024 Magen Balder [address] [id number] 03/31/2024 Magen Balder Chronic pain syndrom e G89.[address] [id number] 04/15/2024 Magen Balder Chronic pain syndrom e G89.[address] [id number] 04/15/2024 Magen Balder [address] [id number] 04/26/2024 Maegn Balder Chronic pain syndrom e G89.[address] [id number] 04/29/2024 Magen Balder [address] [id number] 05/06/2024 [facility] [address] [place] [id number] 05/09/2024 Magen Balder [address] [id number] 05/12/2024 Magen Balder Chronic pain syndrom e G89.[address] [id number] 05/18/2024 Magen Balder [address] [id number] 05/20/2024 Magen Balder [address] [id number] 06/07/2024 Magen Balder Chronic pain syndrom e G89.4 and Prediabetes R73.[address] [id number] 06/10/2024 Magen Lantigua Bipolar disorder, unspecified F31.[address] [id number] 06/24/2024 Magen Lantigua Insomnia, unspecifie d G47.00 ; Cocaine abuse, uncomplicated F14.10 and Dorsalgia, unspecified M54.[address] [id number] 07/04/2024 Magen Balder Chronic pain syndrom e G89.[address] [id number] 07/07/2024 Magen Mendozader [address] [id number] 07/20/2024 Magen Balder Chronic pain syndrom e G89.[address] [id number] 07/26/2024 Magen Mendozader [address] [id number] 08/04/2024 Magen Balder Chronic pain syndrom e G89.4 and Encounter for screening for COVID-19 Z11.[address] [id number] 08/18/2024 Magen Balder Chronic pain syndrom e G89.[address] [id number] 08/26/2024 Magen Mendozader [address] [id number] 09/01/2024 Magen Balder Chronic pain syndrom e G89.[address] [id number] 09/02/2024 Magen Mendozader [address] [id number] 09/16/2024 Magen Mendozader [address] [id number] 09/26/2024 Magen Lantigua Cocaine abuse with intoxication, uncomplicated F14.120 and Chronic pain syndrome G89.[address] [id number] 09/28/2024 Magen Lantigua [address] [id number] 10/06/2024 Magen Mendozader [address] [id number] 10/13/2024 Magen Balder Chronic pain syndrom e G89.[address] [id number] 10/26/2024 Magen Balder Chronic pain syndrom e G89.[address] [id number] 11/04/2024 Magen Lantigua [address] [id number] 11/08/2024 Magen Lantigua Encounter for screening for COVID-19 Z11.[address] [id number] 11/08/2024 Magen Balder [address] [id number] 11/09/2024 Magen Balder [address] [id number] 11/09/2024 Magen Balder [address] [id number] 11/22/2024 Magen Balder [address] [id number] 11/30/2024 Magen Balder [address] [id number] 12/13/2024 Magen Balder [address] [id number] 12/13/2024 Magen Balder Chronic pain syndrom e G89.[address] [id number] 12/13/2024 Magen Balder Chronic pain syndrom e G89.[address] [id number] 12/23/2024 Magen Mendozader [address] [id number] 12/26/2024 Magen Mendozader [address] [id number] 12/26/2024 Magen Balder Chronic pain syndrom e G89.4 and Bipolar disorder, unspecified F31.[address] [id number] 01/02/2025 Magen Mendozader [address] [id number] 01/04/2025 Magen Balder Chronic pain syndrom e G89.[address] [id number] 01/11/2025 Magen Mendozader [address] [id number] 01/20/2025 Magen Lantigua Other fecal abnormalities R19.[address] [id number] 01/20/2025 Magen Lantigua [address] [id number] 01/20/2025 Magen Lantigua Bipolar disorder, current episode depressed, moderate F31.[address] [id number] 01/23/2025 Magen Lantigua [address] [id number] 01/31/2025 Magen Lantigua Epilepsy, unspecifie d, not intractable, without status epilepticus G40.909 and Encounter for screening for COVID-19 Z11.[address] [id number] 02/04/2025 Magen Lantigua Chronic pain syndrom e G89.[address] [id number] 02/07/2025 Laila Molina [address] [id number] 02/14/2025 Magen Lantigua Chronic pain syndrom e G89.4 Assessments Encounter Date Diagnosis (ICD Code) Assessment Notes Treatment Notes Treatment Clinical Notes Section Notes 03/18/2024 Bipolar disorder, current episode depressed, mild (ICD-10 - F31.31) Reviewed hx of psychiatric illness, treatment received and medication trials with client. Discussed current medications as to indications, actions and side effects. Reviewed risks benefits of treatment versus non treatment. Medication education provided. Patient given opportunity to ask questions. Patient gives informed consent to proceed with prescribed treatment. 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 Medications: cont Depakote at current dose. Being prescribed by neurologist. Clt aware also helpful for mood stabilization in Bipolar D/O. Cont Cymbalta has RF from . 3. Psychotherapy: she [...] allowed time for clarifying questions. Engaged with [facility] team for care 06/10/2024 Encounter for [...] to proceed with prescribed treatment. 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 Medications: Depakote prescribed by neurologist. Clt aware also helpful for mood stabilization in Bipolar D/O. Depakote level wnl. 3. Psychotherapy: Per clt getting therapy through [facility]. 4. Labs/Procedures: as above 5. Exercise/Nutrition: sleep, [...] - F14.120) Clt continues to work with addictions recovery specialist, getting counsaling [facility] and at [facility]. aware of triggers and actively working on reducing them. Started back on baclofen 5 mg TID, she was started on medication for cocaine craving while at and asked to continue medication. Craving somewhat [...] to proceed with prescribed treatment. 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 Medications: Depakote prescribed by neurologist. Clt aware also helpful for mood stabilization in Bipolar D/O. Increase in Duloxteine to 30 mg BID per clt request. Depakote level wnl. 3. Psychotherapy: Per clt getting therapy through [facility]. 4. Labs/Procedures: as above 5. Exercise/Nutrition: sleep, [...] - F14.120) Clt continues to work with addictions recovery specialist, getting counsaling at [facility] and at [facility]. aware of triggers and actively working on reducing them. Started back on baclofen 5 mg TID, she was started on medication for cocaine craving while at and asked to continue medication. Craving somewhat improved. Topamax prescribed by neuro in past for seizures was D/C'd by neuro as caused headaches. 08/19/2024 Cocaine abuse with intoxication, uncomplicated (ICD-10 - F14.120) Clt continues to work with addictions recovery specialist, getting counsaling at [facility] and at [facility]. aware of triggers and actively working on reducing them. Started back on baclofen 5 mg TID, she was started on medication for cocaine craving while at and asked to continue medication. Craving somewhat [...] to proceed with prescribed treatment. 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 Medications: Depakote prescribed by neurologist. Clt aware also helpful for mood stabilization in Bipolar D/O. Cont. Duloxteine to 30 mg BID per clt request. Depakote level wnl. 3. Psychotherapy: Per clt getting therapy through [facility]. 4. Labs/Procedures: no new labs for review. [...] verbalizes agreement, allowed time for clarifying questions. N Crisis called. Clt stayed at clinic to [...] to proceed with prescribed treatment. 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 Medications: Depakote prescribed by neurologist. Clt aware also helpful for mood stabilization in Bipolar D/O. Cont. Duloxteine to 30 mg BID. Started on Abilify 2 mg while hsopitalized at [facility]. 3. Psychotherapy: Has new intake scheduled [...] oopiate agreement done. Stay in 15 oxy [id number] understands. Can boost at surgeryif needed and [...] you are having concerning symptoms for COVID-19. 01/11/2025 Bipolar disorder, current episode depressed, moderate (ICD-10 - F31.32) Reviewed hx of psychiatric illness, treatment received and medication trials with client. Discussed current medications as to indications, actions and side effects. Reviewed risks benefits of treatment versus non treatment. Medication education provided. Patient given opportunity to ask questions. Patient gives informed consent to proceed with prescribed treatment. 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 Medications: Depakote prescribed by neurologist. Clt aware also helpful for mood stabilization in Bipolar D/O. Cont. Duloxteine to 30 mg BID. Started on Abilify 2 mg while hsopitalized at [facility]. 3. Psychotherapy: F/U Violetta Phan [facility] 4. Labs/Procedures: Has f/u with Dr. Lantigua 5. Exercise/Nutrition: sleep, regular exercise and nutrition all have a direct impact on our health and well-being. Keeping them in balance is especially important when we face stressful times in our lives. Eat balanced meals, get 6-8 hours of sleep a night, daily walking as able. 6. Understands plan and verbalizes agreement, allowed time for clarifying questions. S/E of Antipsychotic Medication Aripiprazole reviewed with client and may include but are not limited to: weight gain and metabolic syndrome, risk of EPS, sedation/dizziness, elevated prolactin, anticholinergisc s/e, uncommon risk of TD and rare risk of NMS. Will require regular monitoring of wt, BP, Hgb A1C, lipids and AIMS exam. Duloxetine most common side effects may include but are [...] to seek help with any side effects. 01/31/2025 Bipolar disorder, current episode depressed, moderate (ICD-10 - F31.32) Reviewed hx of psychiatric illness, treatment received and medication trials with client. Discussed current medications as to indications, actions and side effects. Reviewed risks benefits of treatment versus non treatment. Medication education provided. Patient given opportunity to ask questions. Patient gives informed consent to proceed with prescribed treatment. 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 Medications: Depakote prescribed by neurologist. Clt aware also helpful for mood stabilization in Bipolar D/O. Cont. Duloxteine 30 mg BID. Abilify 5 mg. 3. Psychotherapy: encouraged to F/U Sylvester [facility] 4. Labs/Procedures: Has f/u with Dr. Lantigua 5. Exercise/Nutrition: sleep, regular exercise and nutrition all have a direct impact on our health and well-being. Keeping them in balance is especially important when we face stressful times in our lives. Eat balanced meals, get 6-8 hours of sleep a night, daily walking as able. 6. Understands plan and verbalizes agreement, allowed time for clarifying questions. S/E of Antipsychotic Medication Aripiprazole reviewed with client and may include but are not limited to: weight gain and metabolic syndrome, risk of EPS, sedation/dizziness, elevated prolactin, anticholinergisc s/e, uncommon risk of TD and rare risk of NMS. Will require regular monitoring of wt, BP, Hgb A1C, lipids and AIMS exam. Duloxetine most common side effects may include but are [...] to seek help with any side effects. 03/03/2024 Chronic pain syndrome (ICD-10 - G89.4) [...] disorder, unspecified (ICD-10 - F31.9) Followed by [facility] Client would like increase in Duloxetine dose, [...] 01/04/2025 Chronic pain syndrome (ICD-10 - G89.4) 01/20/2025 Other fecal abnormalities (ICD-10 - R19.5) 01/20/2025 Bipolar disorder, current episode depressed, moderate (ICD-10 - F31.32) 01/31/2025 Epilepsy, unspecified, not intractable, without status epilepticus (ICD-10 - G40.909) [facility] Chronic pain syndrome (ICD-10 - G89.4) 02/14/2025 Chronic pain syndrome (ICD-10 - G89.4) 03/18/2024 Insomnia, unspecified (ICD-10 - G47.00) Followed [...] (ICD-10 - G89.4) Followed by endocrine At [facility] ebut to renew her opoiate. [...] respite bed. Clt continues to work with addictions recovery specialist, getting counsaling [facility] and at [facility]. aware of triggers and actively working on reducing them. Started back on baclofen 5 mg TID, she was started on medication for cocaine craving while at and asked to continue medication. Craving somewhat [...] [facility] 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 01/11/2025 Cocaine abuse with intoxication, uncomplicated (ICD-10 [...] past. Will also make Dr. Lantigua aware. 01/31/2025 Cocaine abuse with intoxication, uncomplicated (ICD-10 - F14.120) Topamax prescribed by neuro in past for seizures was D/C'd by neuro as caused headaches. She is currently in recovery with clean date 11/15/24. She is at her mother's home temporarily. 06/07/2024 Prediabetes (ICD-10 - R73.03) 06/24/2024 Dorsalgia, unspecified (ICD-10 - M54.9) 08/04/2024 Encounter for screening for COVID-19 (ICD-10 - Z11.52) 09/26/2024 Chronic pain syndrome (ICD-10 - G89.4) Followed by endocrine 12/26/2024 Bipolar disorder, unspecified (ICD-10 - F31.9) Followed by Ras[facility] Askew 01/31/2025 Encounter for screening for COVID-19 (ICD-10 - Z11.52) 03/18/2024 Post-traumatic stress disorder, chronic (ICD-10 - F43.12) Working on getting new therapist. 06/14/2024 Insomnia, unspecified (ICD-10 - G47.00) Dose increased at [facility]. She stopped Seroquel at HS prescribed by [facility] on her own due to s/e. 06/30/2024 [...] to proceed with prescribed treatment. 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 Medications: Depakote prescribed by neurologist. Clt aware also helpful for mood stabilization in Bipolar D/O. Cont. Duloxteine to 30 mg BID per clt request. Depakote level wnl. 3. Psychotherapy: Per clt getting therapy through [facility]. 4. Labs/Procedures: no new labs for review [...] unspecified (ICD-10 - G47.00) Dose increased at [facility]. She stopped Seroquel at HS prescribed by [facility] on her own due to s/e. 08/19/2024 [...] to proceed with prescribed treatment. 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 Medications: Depakote prescribed by neurologist. Clt aware also helpful for mood stabilization in Bipolar D/O. Cont. Duloxteine to 30 mg BID per clt request. Depakote level wnl. 3. Psychotherapy: Per clt getting therapy through [facility]. 4. Labs/Procedures: no new labs for review. [...] status epilepticus (ICD-10 - G40.909) [facility] Noseizures at present 09/16/2024 Opioid abuse, [...] dropoing trazodone to 100 form 150 01/11/2025 Opioid abuse, uncomplicated (ICD-10 - F11.10) Now blind dosing, has been tapering down pending ortho surgery. 01/31/2025 Opioid abuse, uncomplicated (ICD-10 - F11.10) Now blind dosing, has been tapering down pending ortho surgery. 03/18/2024 Epilepsy, unspecified, not intractable, without status epilepticus (ICD-10 - G40.909) [facility] with [facility]ist. Per clt no seizure activity since 07/202306/14/2024 Post-traumatic stress disorder, chronic (ICD-10 - F43.12) Encouraged to work on with therapist. 06/30/2024 Insomnia, unspecified (ICD-10 - G47.00) Dose increased at [facility]. She stopped Seroquel at HS prescribed by [facility] on her own due to s/e. 07/21/2024 Post-traumatic stress disorder, chronic (ICD-10 - F43.12) Encouraged to work on with therapist. 08/19/2024 Insomnia, unspecified (ICD-10 - G47.00) Dose increased at [facility]. Doing well on this dose. 08/26/2024 Cocaine abuse, uncomplicated (ICD-10 - F14.10) Doing well at present. Last use last year 09/16/2024 Osteoarthritis of knee, unspecified (ICD-10 - M17.9) I hope she can se eortho. will be hard to get through surgery 09/16/2024 Insomnia, unspecified (ICD-10 - G47.00) Dose increased at [facility]. Doing well on this dose. 12/07/2024 Insomnia, unspecified (ICD-10 - G47.00) 01/06/2025 Thyrotoxicosis, unspecified without thyrotoxic crisis or storm (ICD-10 - E05.90) with [facility] Has been stable 01/11/2025 Insomnia, unspecified (ICD-10 - G47.00) Using Trazodone for sleep. Take only as directed. Avoid hazardous activities or those requiring concentration to perform to prevent injuries. Do not take when drinking alcohol as it can be a dangerous combination. Common Side Effects of Trazodone include but are not limited to drowsiness, dry mouth, dizziness or lightheadedness, orthostatic hypotension, headache, blurred vision, nausea and vomiting. Serious but rare s/e effects include but are not limited to sustained erection > 6 hours, advised if this happens to seek immediate medical attention. 01/31/2025 Insomnia, unspecified (ICD-10 - G47.00) Using Trazodone for sleep. Take only as directed. Avoid hazardous activities or those requiring concentration to perform to prevent injuries. Do not take when drinking alcohol as it can be a dangerous combination. Common Side Effects of Trazodone include but are not limited to drowsiness, dry mouth, dizziness or lightheadedness, orthostatic hypotension, headache, blurred vision, nausea and vomiting. Serious but rare s/e effects include but are not limited to sustained erection > 6 hours, advised if this happens to seek immediate medical attention. 03/18/2024 Anxiety disorder, unspecified (ICD-10 - F41.9) Helpful for anxiety control. 06/14/2024 Epilepsy, unspecified, not intractable, without status epilepticus (ICD-10 - G40.909) [facility] with [facility]ist. Per clt no seizure activity since 07/2023. Valproic Acid level wnl see above. 06/30/2024 Post-traumatic stress disorder, chronic (ICD-10 - F43.12) Encouraged to work on with therapist. 07/21/2024 Epilepsy, unspecified, not intractable, without status epilepticus (ICD-10 - G40.909) [facility] with [facility]ist. Per clt no seizure activity since 07/2023.Las t Valproic acid level wnl. See labs. 08/19/2024 Post-traumatic stress disorder, chronic (ICD-10 - F43.12) Encouraged to work on with therapist. 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 Cecy-nurse left her a message 09/16/2024 Presence of unspecified artificial knee joint (ICD-10 - Z96.659) 09/16/2024 Post-traumatic stress disorder, chronic (ICD-10 - F43.12) Encouraged to work on with therapist. 12/07/2024 Post-traumatic stress disorder, chronic (ICD-10 - F43.12) Receiving services at [facility] and also has appt with ADALBERTO Phan at [facility]. 01/06/2025 Encounter for screening for malignant neoplasm of colon (ICD-10 - Z12.11) agrees to FIT 01/11/2025 Post-traumatic stress disorder, chronic (ICD-10 - F43.12) Has appt with ADALBERTO Phan at [facility]. 01/31/2025 Post-traumatic stress disorder, chronic (ICD-10 - F43.12) Encouraged to make appt with [facility] Violetta Phan at [facility]. 03/18/2024 Presence of cardiac pacemaker (ICD-10 - Z95.0) Following with cardiology. Per clt metoprolol dose increased by [facility]. 06/14/2024 Anxiety disorder, unspecified (ICD-10 - F41.9) Helpful for anxiety control. 06/30/2024 Epilepsy, unspecified, not intractable, without status epilepticus (ICD-10 - G40.909) [facility] with [facility]ist. Per clt no seizure activity since 07/2023. Valproic Acid level wnl see above. 07/21/2024 Anxiety disorder, unspecified (ICD-10 - F41.9) Helpful for anxiety control. 08/19/2024 Epilepsy, unspecified, not intractable, without status epilepticus (ICD-10 - G40.909) [facility] with [facility]ist. Per clt no seizure activity since 07/2023.Las t Valproic acid level wnl. See labs. 08/26/2024 penitentiary (current) use of opiate analgesic (ICD-10 - Z79.891) see above. Has controlled this pretty well 09/16/2024 Bipolar disorder, current episode depressed, moderate (ICD-10 - F31.32) seeing today 09/16/2024 Epilepsy, unspecified, not intractable, without status epilepticus (ICD-10 - G40.909) [facility] with neurologist. Per clt no seizure activity since 07/2023.Las t Valproic acid level wnl. See labs. 12/07/2024 Epilepsy, unspecified, not intractable, without status epilepticus (ICD-10 - G40.909) [facility] with [facility]ist. Keppra was increased when she was hospitalized related to increase in seizure activity. Currently seizure free. 01/06/2025 Nicotine dependence, unspecified, uncomplicated (ICD-10 - F17.200) Working on this slowly 01/11/2025 Epilepsy, unspecified, not intractable, without status epilepticus (ICD-10 - G40.909) [facility] with neurologist. Keppra was increased when she was hospitalized related to increase in seizure activity. Currently seizure free. 01/31/2025 Epilepsy, unspecified, not intractable, without status epilepticus (ICD-10 - G40.909) [facility], per clt her neurologist is retiring. Will send Dr. Lantigua Telephone encounter 03/18/2024 Opioid abuse, uncomplicated (ICD-10 - F11.10) [...] status epilepticus (ICD-10 - G40.909) [facility] Says she has alot of petit mal. [facility] [place] Checkign trough depakote level 01/11/2025 Anxiety disorder, unspecified (ICD-10 - F41.9) Not taking hydroxyzine, anxiety better controlled of late. 01/31/2025 Anxiety disorder, unspecified (ICD-10 - F41.9) anxiety better controlled of late. 03/18/2024 Chronic pain syndrome (ICD-10 - G89.4) [...] knee, unspecified (ICD-10 - M17.9) She is [facility] on trc[facility] for dsurgery. [facility]ology cleared her. Asked for ortho records. Says she is up for both kneeandthen the one nankle. She is doing her pT-BIGTIME! 01/11/2025 Presence of cardiac pacemaker (ICD-10 - Z95.0) Followed by cardiology. 01/31/2025 Presence of cardiac pacemaker (ICD-10 - Z95.0) Followed by cardiology. 03/18/2024 Encounter for screening for COVID-19 (ICD-10 [...] IH + cocaine. Statretd to work with addictions recovery specialist, getting [facility]sleing [facility] and at [facility]. aware of triggers and actively working on [...] (ICD-10 - Z95.0) asking for cards note 01/11/2025 Chronic pain syndrome (ICD-10 - G89.4) Pain Contract Dr. Lantigua. 01/31/2025 Chronic pain syndrome (ICD-10 - G89.4) Pain Contract Dr. Lantigua. Per clt needs Rf on Cymbalta, will send TE to Dr. Lantigua. 06/14/2024 Encounter for screening for COVID-19 (ICD-10 [...] relaly off inhalers at present. Dpoing well 05/03/2024 Other 05/20/2024 Other 05/20/2024 Other 08/18/2024 Other NOTE : TIME SPE NT ON VISIT: 11/04/2024 Other 11/04/2024 Other 01/26/2025 Other 02/24/2025 Other 02/24/2025 Other 03/18/2024 Other Time spent in visit:25 minutes [...] spent in visit: 20 minutes 01/06/2025 Other 01/11/2025 Other Time spent in visit: 25 minutes 01/31/2025 Other Time spent in visit: 20 minutes Plan Of Treatment Pending Test Test Name Order Date EKG 01/27/2017 EKG 03/24/2019 HIV 1/2 ANTIGEN/ANTIBODY,FOURTH GENERATI ON W/RFL 01/02/2017 HEPATITIS PANEL, ACUTE W/REFLEX TO CONFI RMATION 01/02/2017 COMPREHENSIVE METABOLIC PANEL-[facility] 12/12 CHOLESTEROL, TOTAL 01/02/2017 CBC (INCLUDES DIFF/PLT) AUTO DIFF - NO P ATH REVIEW 01/02/2017 QUANTIFERON(R)-TB GOLD 10/21/2017 FECAL GLOBIN BY IMMUNOCHEMISTRY 09/03/19 THYROID PROFILE 03/24/2019 TRICHOMONAS 03/31/2019 URINE CULTURE 09/14/2019 URINE CULTURE 10/03/2019 Marisela Screening Digital 09/12/2021 Marisela Screening Digital 09/03/2022 HEPATITIS A,B,C PROFILE 09/03/2022 Future Test Test Name Order Date VITAMIN D, 25-HYDROXY 09/12/2021 Next Appt Details Provider Name:Magenrita Lantigua, 03/31/2025 08:40:00 AM, [address] [place] [address], [phone], Provider Name:Laila Molina, 04/04/2025 09:00:00 AM, [address] [place] [address], [phone], Insurance Providers Payer Name Payer Address Payer Phone Subscriber Number Group Number Insured Name Patient Relationship to Insured Coverage Start Date Coverage End Date [facility]ly [facility] [address] [place] [phone] [id number] Ld Mosley Self - patient is the insured 0 [place] Medicare Part [place] [employer] [address] [place] [address] [id number] Ld Mosley Self - patient is the [...] Surgical History Surgery Date(Month/Year) Pacemaker Insertion at [facility] 09/25/2023 Right knee menisceal repair surgery 05/14 Left knee laproscopic tendon repair kay nstruction 04/2023 Total Laparoscopic Hysterectomy with Cedrick ateral Salpingo Oophorectomy 02/17/20 Hospitalization History Reason Date(Month/Year) [facility], seizures, detox 2024 05/2024 Pacemaker [facility] 09/2023 OD, Section 35 and then to [facility] 07/2022 [facility] ~ Rt ovary mass [facility] operative no te-scanning Benign pathology 02/17/2020 [facility] ER, vomiting with nausea, dc to home 08/12/19 [facility] ER, acute serous right o titis media; acute serous left otitis media. dc to home 05/23/19 section 02/04/19 [facility] Detox and psych
--- NOTE | 2025-03-01 10:19 | PC.NURSE ---
PO intake given to pt, vipinteam at bedside attempting to talk with pt but she was to nauseous to talk, they will re-assess
[2025-03-01 12:15] VITALS: BP 117/78; PULSE 81; RESP 16; TEMP 36.6; O2SAT 98
--- NOTE | 2025-03-01 12:24 | PC.NURSE ---
Pt refused take home narcan stating I have 100 of those at home medication returned to [place]
== END 2025-03-01 12:25 | disposition home or self-care (01) ==
PROVIDERS: Emergency Provider Emergency Medicine
DX: T40.1X1A Poisoning by heroin, accidental (unintentional), initial encounter (principal); R40.4 Transient alteration of awareness; Y92.9 Unspecified place or not applicable; Z79.899 Other long term (current) drug therapy; F17.210 Nicotine dependence, cigarettes, uncomplicated; Z71.51 Drug abuse counseling and surveillance of drug abuser
CPT/HCPCS: 99285; S9485

== ENCOUNTER 2025-03-14 16:21 | Emergency (ER) | payer OTHER, SELFPAY ==
[2025-03-14 16:44] VITALS: BP 137/87; BP 97/55; PULSE 107; PULSE 88; RESP 17; TEMP 36.5; O2SAT 94; O2SAT 96; BMI 21.0
--- NOTE | 2025-03-14 16:54 | ED.GENADULT ---
HPI - General Adult General Chief complaint: Overdose Stated complaint: OD, given narcan A&O Time Seen by Provider: 03/14/25 16:45 Source: patient and EMS Mode of arrival: EMS Limitations: no limitations History of Present Illness ED Provider: DR. Cerda HPI narrative: A 50-year-old female PMHx PTSD, bipolar disorder patient presented to the ED via ambulance for evaluation after heroin overdose, patient declined SI or HI, found at a fast food store unresponsive responded to 4 mg of Narcan intranasally given by the police at the scene. Patient in the ED admit to using 1 bag of heroin by sniffing, patient feels irritated asking for something to calm her down after the Narcan. Related Data Home Medications ?Medication ?Instructions ?Recorded ?Confirmed aripiprazole 5 mg tablet 5 mg PO DAILY 03/15/25 03/15/25 divalproex 500 mg tablet,extended 500 mg PO BID 03/15/25 03/15/25 release 24 hr fluticasone fur. 200 mcg-umeclid 1 ea inhalation DAILY 03/15/25 03/15/25 62.5 mcg-vilant 25 mcg inhalat.powder (Trelegy Ellipta) olanzapine 2.5 mg tablet 2.5 mg PO BEDTIME 03/15/25 03/15/25 oxycodone 15 mg tablet 15 mg PO Q6H PRN Chronic Pain 03/15/25 03/15/25 Previous Rx's ?Medication ?Instructions ?Recorded levetiracetam 750 mg tablet 750 mg PO BID 30 days #60 tabs 11/30/24 trazodone 150 mg tablet 150 mg PO BEDTIME 30 days #30 tabs 11/30/24 Allergies Allergy/AdvReac Type Severity Reaction Status Date / Time acetaminophen (From Vicodin) Allergy Severe Anaphylaxis Verified 03/14/25 16:54 hydrocodone (From Vicodin) Allergy Severe Anaphylaxis Verified 03/14/25 16:54 amoxicillin (AMOXICILLIN) Allergy Intermediate RASH Verified 03/14/25 16:54 Penicillins (PENICILLINS) Allergy Intermediate RASH Verified 03/14/25 16:54 topiramate (From Topamax) AdvReac Unknown Unknown Verified 03/14/25 16:54 lamictal AdvReac Unknown Unknown Uncoded 03/14/25 16:54 Review of Systems Review of Systems: All other systems are reviewed and are negative Constitutional: Reports as per HPI and Reports no additional constitutional complaints Eyes: Reports as per HPI and Reports no additional eye complaints Reports system reviewed and no additional complaints, except as documented Cardiovascular: Reports as per HPI and Reports no additional cardiovascular complaints Respiratory: Reports as per HPI and Reports no additional respiratory complaints Gastrointestinal: Reports as per HPI and Reports no additional gastrointestinal complaints Genitourinary: Reports no additional female genitourinary complaints Musculoskeletal: Reports no additional musculoskeletal complaints Skin/Breast: Reports system reviewed and no additional complaints, except as docu Psychiatric: Reports no additional psychiatric complaints Endocrine: Reports no additional endocrine complaints Hematologic/Lymphatic: Reports no additional hematologic/lymphatic complaints Allergic/Immunologic: Reports no additional allergic/immunologic complaints Reports system reviewed and no additional complaints, except as documented and Reports Abnormal speech present [facility] Past Medical History Medical History Fracture of medial malleolus, left, closed Closed left fibular fracture Osteoarthritis of knees, bilateral Bipolar I disorder Headache, migraine Cocaine use disorder Opioid use disorder, moderate, in early remission, on maintenance therapy, dependence Bipolar disorder with depression PTSD (post-traumatic stress disorder) Cardiac pacemaker in situ Opioid use disorder Seizure disorder Clavicle fracture Narcotic abuse Seizures Asthma COPD (chronic obstructive pulmonary disease) Surgical History History of ankle surgery (08/05/23) H/O right knee surgery H/O left knee surgery Social History Social History Household Members: Family Household Members Other:: Mother, father, daughter Housing: House Do you presently have visiting nurse or other home services: No Unable to assess alcohol history related to: Unknown Alcohol intake: never Comment: n/a Patient Tobacco Use Status: Current everyday Tobacco user Tobacco use type: Cigarette Cigarettes Per Day: 6 e-Cigarette/Vaping Use: Currently Using Second Hand Smoke Exposure: No Substance Use Type: Crack/Cocaine and Opiates Last Used Substance: Just Prior to Admission Advance Directives: Yes Advance Directives on File: Yes Advance Directives Date on File: 09/29/23 Do you have a plan to hurt others: No Plan Patient : No service: No Sexual orientation: Straight/Heterosexual Physical Exam ED Vital Signs: Vital Signs - 24 hr 03/14/25 16:44 03/14/25 16:55 03/14/25 17:58 Temperature 97.7 F 97.7 F 98.4 F Pulse Rate 88 88 84 Respiratory Rate 17 17 16 Blood Pressure 97/55 L 97/55 L 105/61 Pulse Oximetry 94 94 100 Oxygen Delivery Method Room Air Room Air Room Air 03/14/25 20:28 03/15/25 06:37 Temperature 97.6 F 99.2 F Pulse Rate 76 71 Respiratory Rate 16 16 Blood Pressure 104/56 L 110/57 L Pulse Oximetry 94 96 Oxygen Delivery Method Room Air Room Air BMI result Body Mass Index 21.0 Vital signs have been reviewed and appear to be correct. Blood pressure elevated. Heart rate normal. Respiratory rate normal. Temperature normal. Oxygen saturation normal. Appearance: Alert. Oriented X3. No acute distress. Head: Normal external exam. Normocephalic. Atraumatic. No Silva signs noted. No raccoon eyes noted Eyes: PERRLA. EOMI. Conjunctiva and sclera normal. Eyelids normal. ENT: TM's Normal. Pharynx normal. Uvula midline. Moist mucous membranes. No trismus noted. No drooling noted. No muffled voice noted. Neck: Normal inspection. Neck supple. FROM. No adenopathy. Thyroid Normal. No meningeal signs. No neck mass noted. CVS: Normal heart rate and rhythm. Heart sound normal. No murmurs noted. Pulses normal throughout. Respiratory: No respiratory distress. Painless inspiration. Breath sounds normal. No wheezes/rales/rhonchi noted. Chest nontender. No accessory muscle usage noted or decreased air movement noted. Abdomen: Soft and nontender. Bowel sounds normal in all 4 quadrants. No distention noted. No organomegaly noted. No visible injury noted. Back: No CVA tenderness. Full range of motion noted. Skin: Skin warm and dry. Normal skin color. Normal skin turgor. No rashes/lesions/lacerations noted. Extremities: No lower extremity edema. Extremities exhibit normal range of motion. Extremities nontender. Neuro: Oriented X 3. Cranial nerve exam: II-XII are grossly intact No motor deficit. No sensory deficit. Reflexes normal. Patient Orientation: Person, Place, Time and Situation, okay hygiene and grooming. Fair eye contact, attentive, no tics or tremors. Level of Consciousness: Awake, Appropriate and Alert Patient Behavior: Appropriate, Guarded, Cooperative and Anxious Mood Description: Constricted, Blunted and Apprehensive Affect Description: Constricted, Blunted and Apprehensive Patient Cognition Impaired: No Ability to Follow Directions: Excellent Speech Pattern: Clear, Appropriate and Spontaneous Speech, nonpressured, spontaneous with regular rate and rhythm, normal volume and prosody. No dysarthria. Memory Description: Intact, Immediate Intact and Short Term Intact Hallucinations: None Delusions: Not Present Thought Process: Intact Thought Content: positive for Intact, positive for Logical, denies Suicidal Ideation and denies Homicidal Ideation. Depressive Symptoms: Not present. Judgement and Insight: Limited but adequate. Course Reevaluation(s) Reevaluation #1: Drug user is multiple ED visits for similar presentation, responded to 4 mg intranasal Narcan at the scene. VSS, no SI, no HI, no hallucination. Await for recovery team evaluation. Will start physician observation. Time: 16:57 Reevaluation #2: Time: 05:06 Date: 03/15/25 Provider: Nikunj Rocha MD Patient in physician observation for recovery team evaluation and is pending evaluation. The patient has been in the emergency department for about 12 hours. No acute events reported overnight. No current complaints. VS stable.? Will continue to monitor. Time: 14:48 Date: 03/15/25 Provider: Nikunj Rocha MD Physician observation ended at 14:48 hours. Patient was re-evaluated by the CARE team. The patient declined detox bed. Patient was referred to 2 outpatient programs. She told the care team counselor that she just does not want anything. Therefore the patient will be discharged home. Medications Administered Discontinued Medications Generic Name Dose Route Start Last Admin Trade Name Freq PRN Reason Stop Dose Admin Naloxone HCl 8 mg 03/14/25 16:52 03/15/25 13:01 Naloxone Hcl Nasal Take Home 4 Mg [place] NOSTRILALT 03/14/25 16:53 Not Given ONCE ONE Naloxone HCl 8 mg 03/15/25 13:02 03/15/25 14:36 Naloxone Hcl Nasal Take Home 4 Mg [place] NOSTRILALT 03/15/25 13:03 8 mg ONCE ONE Administration Medical Decision Making Differential Diagnosis Differential Diagnoses: The differential diagnosis associated with the presentation includes (SI, HI, acute psychosis, intentional OD, respiratory depression.) Admission/Observation Consideration of admission/observation: Escalation of care including admission/observation considered Lab Data Labs: Lab Results 03/15/25 Range/Units 08:27 Urine Opiates Screen POSITIVE H (Not Detect) Ur Buprenorphine Scrn Not Detected (Not Detect) ng/mL Ur Oxycodone Screen Not Detected (Not Detect) ng/mL Urine Methadone Screen Not Detected (Not Detect) ng/mL Urine Fentanyl Screen POSITIVE H (Not Detect) Ur Barbiturates Screen Not Detected (Not Detect) Ur Phencyclidine Scrn Not Detected (Not Detect) Ur Amphetamines Screen Not Detected (Not Detect) U Benzodiazepines Scrn Not Detected (Not Detect) Urine Cocaine Screen POSITIVE H (Not Detect) U Marijuana (THC) Screen Not Detected (Not Detect) Discharge Plan Discharge Clinical Impression: Accidental overdose Patient Disposition: Home, Self-Care Additional Instructions: Your urine drug screen was positive for opiates (heroin), fentanyl and cocaine. Your are being discharged home with intranasal Narcan. If you are going to continue to use heroin, you should make sure that there is a sober person with you that is not using drugs and that this person can administer intranasal Narcan in the event that you stop breathing. Opiate use disorder You also may have been given naloxone (narcan) to take home with you. This medication is used to potentially treat opiate overdose. If you decide you want to stop or cut down on how much you?re using, you can call or walk into our outpatient Addiction Treatment office: [facility] (M-F 9am-5p) [address] [place] [address], [address] [phone] You may have been provided with safer injection?items, please take time to take care of YOU and your health. Use new supplies whenever possible to lessen the chances of infections and other illnesses.? ?If you need more supplies, please go [facility],? [address], [place] you can call or text to coordinate delivery of safer supplies. You were also provided a list of several treatment providers in the area.? If you experience any worsening symptoms you cannot control please return to the ED or call 911. Please follow up at your next appointment. Things to look out for are fevers, chest pain, shortness of breath, severe pain, dizziness, fainting or any other concerns. Prescriptions: No Action levetiracetam 750 mg tablet 750 mg PO BID 30 Days Qty: 60 0RF trazodone 150 mg tablet 150 mg PO BEDTIME 30 Days Qty: 30 0RF olanzapine 2.5 mg tablet 2.5 mg PO BEDTIME oxycodone 15 mg tablet 15 mg PO Q6H PRN (Reason: Chronic Pain) aripiprazole 5 mg tablet 5 mg PO DAILY Trelegy Ellipta 200-62.5-25 mcg blister with device 1 ea INHALATION DAILY divalproex 500 mg tablet extended release 24 hr 500 mg PO BID Print Language: [place] Zealander
[2025-03-14 16:55] VITALS: BP 97/55; PULSE 88; RESP 17; TEMP 36.5; O2SAT 94
--- OUTSIDE RECORDS SUMMARY | 2025-03-14 17:26 | XMS_ITS | Encounter Summary ---
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 Barbiturate Screen, Ur Negative Negative LAB CHEMISTRY METHOD 5 7:50 PM EDT [facility] Benzodiazepine Screen, Ur Negative Negative LAB CHEMISTRY METHOD 5 7:50 PM EDT [facility] Cocaine Screen, Ur Negative Negative LAB CHEMISTRY METHOD 5 7:50 PM EDT [facility] Opiate Screen, Ur Positive(A ) Negative LAB CHEMISTRY METHOD 5 7:50 PM EDT [facility] Cannabinoid (THC) Screen, Ur Negative Negative LAB CHEMISTRY METHOD 5 7:50 PM EDT [facility] Comment:Specimens from patie nts taking pantoprazole sodium (Protonix) have been shown to produce false positive results. Oxycodone Screen, Ur Positive(A ) Negative LAB CHEMISTRY METHOD 5 7:50 PM EDT [facility] Fentanyl, Ur Negative Negative LAB CHEMISTRY METHOD 5 7:50 PM EDT [facility] Urine Urine specimen obtained by clean catch procedure / Unknown 01/06/2025 9:58 AM EDT 01/06/2025 6:52 PM EDT Narrative [facility] - 01/06/2025 7:50 PM EDT Assay cutoffs: Amphetamines 1000 ng/mL Barbiturates 200 ng/mL Benzodiazepines 200 ng/mL Cocaine 300 ng/mL Fentanyl 1 ng/mL Opiates 300 ng/mL Oxycodone 100 ng/mL THC 50 ng/mL Semi-quantitative assay for screening purposes only. Unconfirmed screening result should not be used for non-medical purposes. 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
--- OUTSIDE RECORDS SUMMARY | 2025-03-14 17:26 | XMS_ITS | Encounter Summary ---
Author Organization [facility] Address [address] [place] [address] Care Team Providers Care Hat Marker Name Role Phone Physician, Pcp Unknown Primary Care Provider Olga vailable Encounter Details Date Type Department Care Team (Late st Contact Info) Description 06/10/2024 Lab Requisition [facility] - Main Lab [address] [facility] [place] [address] Magen Lantigua MD [address] [place] [address] Prediabetes; Chronic pain syndrome Social History Tobacco [...] tube (06/10/2024 1:30 PM EST) Pathologist [facility] Extra Tube Hold for add-ons. 06/10/2024 7:01 PM EST [facility] Comment:Auto resulted. Blood Venous blood specimen / Unknown 06/10/2024 1:30 PM EST 06/10/2024 5:16 PM EST Magen Lantigua MD LAB BLOOD ORDERABLES Final Re sult Performing Organization Address City/[facility]/ZIP Co de Phone Number [facility] [address] [place] [address], [place] [phone] * (ABNORMAL) Glucose, random (06/10/2024 1:30 PM EST) [facility] Glucose 118(H) 70 - 100 mg/dL LAB CHEMISTRY METHOD 06/10/2024 5:33 PM EST [facility] Blood Venous blood specimen / Unknown 06/10/2024 1:30 PM EST 06/10/2024 5:16 PM EST Magen Lantigua MD LAB BLOOD ORDERABLES Final Re sult Performing Organization Address [facility]/ZIP Co de Phone Number [facility] [address] [place] [address], [place] [phone] * Lipid panel with reflex to direct LDL (06/10/2024 1:30 PM EST) [facility] Cholesterol 192 0 - 200 mg/dL LAB CHEMISTRY METHOD 06/10/2024 5:50 PM EST [facility] Triglycerides 61 0 - 150 mg/dL LAB CHEMISTRY METHOD 06/10/2024 5:50 PM EST [facility] HDL 91 >=40 mg/dL LAB CHEMISTRY METHOD 06/10/2024 5:50 PM EST [facility] LDL Calculated 89 0 - 100 mg/dL LAB CHEMISTRY METHOD 06/10/2024 5:50 PM EST [facility] VLDL Cholesterol Fabian 12.2 mg/dL LAB CHEMISTRY METHOD 06/10/2024 5:50 PM EST [facility] Non HDL Chol. (LDL+VLDL) 101 <145 mg/dL LAB CHEMISTRY METHOD 06/10/2024 5:50 PM EST [facility] Chol/HDL Ratio 2.1 0.0 - 4.4 LAB CHEMISTRY METHOD 06/10/2024 5:50 PM EST [facility] Blood Venous blood specimen / Unknown 06/10/2024 1:30 PM EST 06/10/2024 5:16 PM EST Magen Lantigua MD LAB BLOOD ORDERABLES Final Re sult Performing Organization Address [facility]/ZIP Co de Phone Number [facility] [address] [place] [address], [place] [phone] * Hemoglobin A1c (06/10/2024 1:30 PM EST) Hemoglobin A1C 4.8 <6.5 % LAB CHEMISTRY METHOD 06/12/2024 11:38 AM EST [facility] Mean Bld Glu Estim. 91 mg/dL LAB CHEMISTRY METHOD 06/12/2024 11:38 AM [facility] Blood Venous blood specimen / Unknown 06/10/2024 1:30 PM EST 06/10/2024 5:16 PM EST Magen Lantigua MD LAB BLOOD ORDERABLES Final Re sult [facility] [address] [place] [address], [place] [phone] * Valproic acid level, total (06/10/2024 1:30 PM EST) Valproic Acid, Total 72 50 - 100 mcg/mL LAB CHEMISTRY METHOD 06/10/2024 5:33 PM EST [facility] Blood Venous blood specimen / Unknown 06/10/2024 1:30 PM EST 06/10/2024 5:16 PM EST us Magen Lantigua MD LAB BLOOD ORDERABLES Final Re sult [facility] [address] [place] [address], documented in this encounter Visit Diagnoses Diagnosis Prediabetes Other abnormal glucose Chronic pain syndrome documented in this encounter Care Teams Hat Marker Relationship Specialty Start Date End Date Physician, Pcp Unknown PCP - General 01/06/25 documented as of this encounter
--- OUTSIDE RECORDS SUMMARY | 2025-03-14 17:26 | XMS_ITS | Clinical Summary ---
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.] PANEL, URINE Routine 01/06/2025 9:58 AM EDT 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 LIPID PANEL WITH REFLEX TO DIRECT LDL Routine 06/10/2024 1:30 PM EST Prediabetes Chronic pain syndrome MARISELA SCREENING DIGITAL Routine 04/21/2019 10:45 AM EDT Encounter for screening mammogram for malignant neoplasm of breast from Last 3 Months or Most Recently Relevant to Health Maintenance Results * (ABNORMAL) Drug abuse screen 8a panel, urine (01/06/2025 9:58 AM EDT) Amphetamine Screen, Ur Negative Negative LAB CHEMISTRY METHOD 7:50 PM EDT [facility] Comment:Certain OTC medicati ons containing ephedrine, phenylephrine, pseudoephedrine and phenylpropanolamine can cause false positive results. Barbiturate Screen, Ur Negative Negative LAB CHEMISTRY METHOD 5 7:50 PM EDT [facility] Benzodiazepine Screen, Ur Negative Negative LAB CHEMISTRY METHOD 5 7:50 PM EDT [facility] Cocaine Screen, Ur Negative Negative LAB CHEMISTRY METHOD 5 7:50 PM EDT [facility] Opiate Screen, Ur Positive(A ) Negative LAB CHEMISTRY METHOD 5 7:50 PM EDT [facility] Cannabinoid (THC) Screen, Ur Negative Negative LAB CHEMISTRY METHOD 5 7:50 PM T [facility] Comment:Specimens from patie nts taking pantoprazole sodium (Protonix) have been shown to produce false positive results. Oxycodone Screen, Ur Positive(A ) Negative [facility] Fentanyl, Ur Negative Negative LAB CHEMISTRY METHOD 5 7:50 PM [facility] Urine Urine specimen obtained by clean catch procedure / Unknown 01/06/2025 9:58 AM EDT 01/06/2025 6:52 PM EDT Narrative [facility] - 01/06/2025 7:50 PM EDT [...] MD LAB URINE ORDERABLES Final Re sult [facility] [address] [place] [address], * Lipid panel with reflex to direct [...] sult [facility] [address] [place] [address], * MARISELA SCREENING DIGITAL (04/21/2019 10:45 AM EDT) Anatomical Region Laterality Modality Mammography 04/21/2019 10:0 4 AM EDT Narrative 04/21/2019 10:45 AM EDT [facility] Diagnostic Imaging Department [address] [place] [address] Patient: TETO MOSLEY /Age/Sex: 1975 - 44 - F Unit#: [id number] Location/Status: SPDIMAM/REG CLI Mnemonic/Ordering Site: [facility] Ordering Physician: DON SANCHEZ MANAGEMENT TRAINER Marisela Screening Digital - 04/21/19 - 1020 HISTORY: The patient is a 44-year-old female presenting for baseline screening mammography. The patient has a family history of breast cancer involving her mother, prior to menopause. FINDINGS: CC and MLO views of both breasts were obtained using full field digital mammography in the Get [employer]he 2000-D unit. Computer aided detection with the [employer] Second Look 7.2-H was employed. In addition, breast tomosynthesis in MLO projection was performed. The breasts are composed of a combination of fatty and fibroglandular elements (the breasts are heterogeneously dense, which may obscure small masses, category C density). Anteromedially in the left breast there is a 4.2 x 3.0 mm diameter asymmetry, located approximately 7 cm from the nipple. This is not identified on the MLO or on the tomographic images. There is no cluster of microcalcifications, skin thickening, or nipple retraction. IMPRESSION: Anteromedially in the right breast there is a 4.2 x 3.0 mm asymmetry, seen on the CC view only. This likely represents superimposition artifact. However, further evaluation with spot compression and full field rolled CC views is recommended. The patient will be contacted to arrange for this additional imaging. BIRADS Code Class 0: Incomplete. Need Additional Imaging Evaluation. PQRI CPT II 3340F Code 97522, 09035 PQRI 225 CPT II 7025F Dictating Physician: KHANH WILLETT MD Electronically Signed by: KHANH WILLETT MD Dic Date/Time: 04/21/191039 Sign date/Time: 04/21/191044 Procedure Note Khanh Willett - 07/01/2022 [facility] Diagnostic Imaging Department [address] [place] [id number] Patient: MELANYTETO /Age/Sex: 1975 - 44 - F Unit#: [id number] Location/Status: [facility] CLI Mnemonic/Ordering Site: [facility] Ordering Physician: DON SANCHEZ MANAGEMENT TRAINER Marisela Screening Digital - 04/21/19 - 1021 HISTORY: The patient is a 44-year-old female presenting for baselinescreening mammography. The patient has a family history of breast cancer involvingher mother, prior to menopause. FINDINGS: CC and MLO views of both breasts were obtained using fullfield digital mammography in the Get [employer]he 2000-D unit. Computer aideddetection with the [employer]CAD [...] Imaging Evaluation. PQRI CPT II 3340F Code 08136, 93482 PQRI 225 CPT II 7025F Dictating Physician: KHANH WILLETT MD Electronically Signed by: KHANH WILLETT MD Dic Date/Time: 04/21/19 1040 Sign date/Time: 04/21/19 104 Don Sanchez NP IMG BI PROCEDURES Final Res ult from Last 3 Months or Most Recently Relevant to Health Maintenance Insurance [facility] MEDICARE Member Subscriber Plan / Payer (Ef fective 2023-Present) Name:TETO MOSLEY Relation to Subscriber:Self Name:Teto Mosley Payer ID:[id number] Group ID:[id number] Type:Not on file Address: [address] [place] [address] [place] [address] Care Teams Sales Utility Representative Relationship Specialty Start Date End Date Physician, Pcp Unknown PCP - General 01/06/25
[2025-03-14 17:58] VITALS: BP 105/61; PULSE 84; RESP 16; TEMP 36.9; O2SAT 100
[2025-03-14 20:28] VITALS: BP 104/56; PULSE 76; RESP 16; TEMP 36.4; O2SAT 94
--- NOTE | 2025-03-14 22:30 | PC.NURSE ---
Report received from Bhakti MAGALLANES. Pt to see Recovery team in AM. No SI/HI.
--- NOTE | 2025-03-14 22:33 | PC.NURSE ---
Report given to ELPIDIO Wilkerson. PT ambulated to POD with Security
--- NOTE | 2025-03-15 01:54 | PC.NURSE ---
Pt resting quietly with eyes closed, respirations even and unlabored. No acute distress noted.
[2025-03-15 06:37] VITALS: BP 110/57; PULSE 71; RESP 16; TEMP 37.3; O2SAT 96
[2025-03-15 08:47] LABS: Cannabinoid Screen Urine Not Detected (Not Detect)
--- NOTE | 2025-03-15 09:20 | MHC.CARE ---
CARE team assessed Pt at bedside. She declined substance use TX and advocated for ACCS level of care for psychiatric stabilization. Pt will be referred to [facility].
--- NOTE | 2025-03-15 11:52 | MHC.CARE ---
Pt has been clinically declined from [facility] for utilizing the program 4 times since September, not following through with referrals, not engaging, and not admitting to the [facility] when she was accepted. Pt will not be referred to detox
--- NOTE | 2025-03-15 12:11 | PHA.MEDREC ---
Addendum entered by Yesica Morales RPh 03/15/25 12:30: Reviewed by [facility] Original Note: Pharmacy Consult ? Medication Reconciliation Pharmacy has completed the medication reconciliation. Spoke with pt and she confirmed her medications. Pt confirmed her Trazodone 150mg tab once at bedtime, Levetiracetam 750mg tabs once BID, Ariprazole 5mg once daily, Oxycodone 15mg 1 Q6H PRN Chronic Pain, Trelegy Ellipta one inh BID, Olanzapine 2.5mg tabs once daily and Divalproex 500mg 1 tab BID (claims originally shows 02/06 QTY 90 for 30 days). Patient states she is not taking the Duloxetine or Baclofen; stating she did not like those and she is not taking Metoprolol anymore; stating she stopped it herself. Pt has not taken any medications in 4 days.
[2025-03-15] MEDS: Naloxone HCl Nasal TAKE HOME 4 MG SPRAY 8 MG NOSTRILALT (14:36)
[2025-03-15] MEDS: oxyCODONE HCl Immed Release 15 MG TABLET PO (15:21)
[2025-03-15 15:29] VITALS: BP 110/57; PULSE 71; RESP 16; TEMP 37.3; O2SAT 96
== END 2025-03-15 15:29 | disposition home or self-care (01) ==
PROVIDERS: Emergency Provider Emergency Medicine
DX: T40.1X1A Poisoning by heroin, accidental (unintentional), initial encounter (principal); R40.4 Transient alteration of awareness; Y92.511 Restaurant or cafe as the place of occurrence of the external cause; Z79.899 Other long term (current) drug therapy
CPT/HCPCS: 80307; 99285; S9485

== ENCOUNTER → 2025-06-28 15:19 | Outpatient (BNV) | payer OTHER, SELFPAY | PROVIDERS: Visit Provider Internal Medicine Cardiovascular Disease | DX: Z45.018 Encounter for adjustment and management of other part of cardiac pacemaker (principal) | CPT/HCPCS: 93294 ==